=== PATIENT | female | born 1945 | race Caucasian/White ===

== ENCOUNTER → 2016-05-24 | Outpatient (CLI) | payer MEDICARE ==
[2016-05-24 11:59] LABS: Appearance,Urine Clear (Clear); Bacteria,Urine Rare /hpf; Bilirubin,Urine Negative (Negative); Glucose,Urine (UA) Negative (Negative); Ketones,Urine Negative (Negative); Leukocyte Esterase,Urine Small (Negative); Nitrite,Urine Negative (Negative); Particle Count 2045; Protein,Urine Negative (Negative); RBC,Urine 1 /hpf (0-5); Specific Gravity,Urine 1.013 (1.001-1.035); Squamous Epithelial Cell,Urine 2 /hpf (0-4); UA Billing (MACRO vs. MICRO) MICRO; Urobilinogen,Urine <2.0 mg/dL (<2.0); WBC,Urine 3 /hpf (0-5)
[2016-05-24 12:15] LABS: ALT 27 U/L (9-52); AST 19 U/L (14-36); Alkaline Phosphatase 135 U/L (38-126); Anion Gap 8 mmol/L; Blood Urea Nitrogen 21 mg/dL (7-17); Calcium 9.5 mg/dL (8.4-10.2); Carbon Dioxide 29 mmol/L (22-30); Chloride 104 mmol/L (98-107); Glucose 184 mg/dL (74-99); Iron 81 ug/dL (37-170); Non-African American GFR(MDRD) 55 (>60 ml/min/1.73 sqM); Phosphorous 3.6 mg/dL (2.5-4.5); Sodium 141 mmol/L (137-145); Total Bilirubin 0.9 mg/dL (0.2-1.3); Total Protein 6.9 g/dL (6.3-8.2); Uric Acid 6.3 mg/dL (3.7-7.4)
[2016-05-24 12:24] LABS: Total Iron Binding Capacity 279 ug/dL (265-497)
[2016-05-24 12:29] LABS: Basophils # (A) 0.1 k/uL (0-0.2); Basophils % (A) 1 %; CH 29.7; CHCM 32.3; Eosinophils # (A) 0.1 k/uL (0-0.7); Eosinophils % (A) 1 %; HCT 44.6 % (34.0-46.0); HGB 14.5 gm/dL (11.4-16.0); Luc # (Auto) 0.14; Luc % (Auto) 2; Lymphocytes # (A) 1.1 k/uL (1.0-4.8); Lymphocytes % (A) 14 %; MCH 30.1 pg (25.0-35.0); MCHC 32.5 g/dL (31.0-37.0); MCV 92.4 fL (80.0-100.0); Mean Platelet Volume 8.8; Monocytes # (A) 0.4 k/uL (0-1.0); Monocytes % (A) 4 %; Neutrophils # (A) 6.3 k/uL (1.3-7.7); Neutrophils % (A) 78 %; RBC 4.83 m/uL (3.80-5.40); RDW 13.6 % (11.5-15.5); WBC 8.1 k/uL (3.8-10.6); WBC (Perox) 8.21
[2016-05-24 13:43] LABS: Hemoglobin A1C 7.3 % (4.2-6.1)
== END | disposition home or self-care (01) ==
LOC: LABWHC1 11:27
PROVIDERS: ATTEND Nurse Practitioner Family
DX: N18.3 Chronic kidney disease, stage 3 (moderate) (principal); N25.81 Secondary hyperparathyroidism of renal origin; D64.9 Anemia, unspecified; M10.9 Gout, unspecified; N39.0 Urinary tract infection, site not specified; E11.65 Type 2 diabetes mellitus with hyperglycemia
CPT/HCPCS: 36415; 80053; 81001; 82306; 82728; 83036; 83540; 83550; 83735; 83970; 84100; 84550; 85025

== ENCOUNTER → 2016-09-15 | Outpatient (CLI) | payer MEDICARE ==
[2016-09-15 13:26] LABS: Calcium 9.3 mg/dL (8.4-10.2); Potassium 4.7 mmol/L (3.5-5.1)
== END | disposition home or self-care (01) ==
LOC: LABWHC1 12:35
PROVIDERS: ATTEND Nurse Practitioner Family
DX: N18.3 Chronic kidney disease, stage 3 (moderate) (principal); E78.00 Pure hypercholesterolemia, unspecified
CPT/HCPCS: 36415; 80048; 80061

== ENCOUNTER → 2016-11-03 | Outpatient (CLI) | payer MEDICARE ==
[2016-11-03 12:00] LABS: Basophils # (A) 0.1 k/uL (0-0.2); Basophils % (A) 1 %; CH 30.9; CHCM 32.7; Eosinophils # (A) 0.1 k/uL (0-0.7); Eosinophils % (A) 2 %; HCT 47.7 % (34.0-46.0); HGB 15.1 gm/dL (11.4-16.0); Luc # (Auto) 0.13; Luc % (Auto) 2; Lymphocytes # (A) 1.5 k/uL (1.0-4.8); Lymphocytes % (A) 21 %; MCH 30.2 pg (25.0-35.0); MCHC 31.7 g/dL (31.0-37.0); MCV 95.2 fL (80.0-100.0); Mean Platelet Volume 9.1; Monocytes # (A) 0.4 k/uL (0-1.0); Monocytes % (A) 6 %; Neutrophils # (A) 4.7 k/uL (1.3-7.7); Neutrophils % (A) 68 %; RBC 5.01 m/uL (3.80-5.40); RDW 14.4 % (11.5-15.5); WBC 6.9 k/uL (3.8-10.6); WBC (Perox) 6.58
[2016-11-03 12:14] LABS: Calcium 9.6 mg/dL (8.4-10.2); Phosphorous 3.7 mg/dL (2.5-4.5); Potassium 5.1 mmol/L (3.5-5.1); Total Bilirubin 0.7 mg/dL (0.2-1.3); Total Protein 6.7 g/dL (6.3-8.2); Uric Acid 6.7 mg/dL (3.7-7.4)
[2016-11-03 12:23] LABS: Appearance,Urine Cloudy (Clear); Bilirubin,Urine Negative (Negative); Glucose,Urine (UA) Negative (Negative); Ketones,Urine Negative (Negative); Leukocyte Esterase,Urine Trace (Negative); Mucus,Urine Rare /hpf; Nitrite,Urine Negative (Negative); Particle Count 3802; Protein,Urine Negative (Negative); RBC,Urine <1 /hpf (0-5); Specific Gravity,Urine 1.018 (1.001-1.035); Squamous Epithelial Cell,Urine 7 /hpf (0-4); UA Billing (MACRO vs. MICRO) MICRO; Urobilinogen,Urine <2.0 mg/dL (<2.0); WBC,Urine 3 /hpf (0-5)
[2016-11-03 15:30] LABS: Iron Saturation 31.94 (12.00-45.00)
[2016-11-03 21:07] LABS: Hemoglobin A1C 7.1 % (4.2-6.1)
== END | disposition home or self-care (01) ==
LOC: LABWHC1 11:10
PROVIDERS: ATTEND Nurse Practitioner Family
DX: D64.9 Anemia, unspecified (principal); E55.9 Vitamin D deficiency, unspecified; M10.9 Gout, unspecified; N39.0 Urinary tract infection, site not specified; N25.81 Secondary hyperparathyroidism of renal origin; E11.65 Type 2 diabetes mellitus with hyperglycemia; I12.9 Hypertensive chronic kidney disease with stage 1 through stage 4 chronic kidney disease, or unspecified chronic kidney disease; E11.22 Type 2 diabetes mellitus with diabetic chronic kidney disease; N18.3 Chronic kidney disease, stage 3 (moderate); Z79.4 Long term (current) use of insulin
CPT/HCPCS: 36415; 80053; 80061; 81001; 82306; 82728; 83036; 83540; 83550; 83735; 83970; 84100; 84550; 85025

== ENCOUNTER → 2016-12-27 | Outpatient (CLI) | payer MEDICARE ==
--- NOTE | 2016-12-27 14:03 | US ---
EXAMINATION TYPE: US kidneys/renal and bladder DATE OF EXAM: 12/27/2016 COMPARISON: CT chest abdomen and pelvis December 25, 2014 CLINICAL HISTORY: N18.3 Chronic kidney disease stage 3. Abnormal labs EXAM MEASUREMENTS: Right Kidney: 9.3 x 3.7 x 4.6 cm Left Kidney: 9.4 x 5.4 x 4.8 cm Right Kidney: wnl Left Kidney: Cyst lateral as seen on previous= 3.0 x 2.7 x 2.9 cm Bladder: wnl Bilateral Jets seen: Yes There is no evidence for hydronephrosis at this point in time. No nephrolithiasis is seen. No new s uspicious solid or cystic masses are identified. There is redemonstration of 3.0 cm simple appearing cyst laterally left kidney felt stable. The urinary bladder is not greatly distended but anechoic. Bilateral ureteral jets are seen. Exam is slightly suboptimal secondary to patient's large body habitus. IMPRESSION: No hydronephrosis is evident bilaterally.
== END | disposition home or self-care (01) ==
LOC: RADUSWWP 12:24
PROVIDERS: ATTEND Internal Medicine Nephrology
DX: N18.3 Chronic kidney disease, stage 3 (moderate) (principal)
CPT/HCPCS: 76770

== ENCOUNTER → 2017-01-10 | Outpatient (CLI) | payer MEDICARE ==
[2017-01-10 12:11] LABS: Appearance,Urine Clear (Clear); Bilirubin,Urine Negative (Negative); Glucose,Urine (UA) Negative (Negative); Ketones,Urine Negative (Negative); Leukocyte Esterase,Urine Negative (Negative); Nitrite,Urine Negative (Negative); PH, Urine 6.5 (5.0-8.0); Protein,Urine Negative (Negative); Specific Gravity,Urine 1.017 (1.001-1.035); UA Billing (MACRO vs. MICRO) CHEM; Urobilinogen,Urine <2.0 mg/dL (<2.0)
[2017-01-10 12:15] LABS: Basophils # (A) 0.1 k/uL (0-0.2); Basophils % (A) 1 %; CH 30.5; CHCM 33.1; Eosinophils # (A) 0.1 k/uL (0-0.7); Eosinophils % (A) 1 %; HCT 46.9 % (34.0-46.0); HDW 2.33; HGB 14.9 gm/dL (11.4-16.0); Luc # (Auto) 0.16; Luc % (Auto) 2; Lymphocytes # (A) 1.5 k/uL (1.0-4.8); Lymphocytes % (A) 18 %; MCH 29.5 pg (25.0-35.0); MCHC 31.9 g/dL (31.0-37.0); MCV 92.5 fL (80.0-100.0); Mean Platelet Volume 8.8; Monocytes # (A) 0.4 k/uL (0-1.0); Monocytes % (A) 4 %; Neutrophils # (A) 6.2 k/uL (1.3-7.7); Neutrophils % (A) 74 %; RBC 5.07 m/uL (3.80-5.40); WBC 8.4 k/uL (3.8-10.6); WBC (Perox) 8.49
[2017-01-10 12:22] LABS: Partial Thromboplastin Time 24.2 sec (22.0-30.0); Prothrombin Time 10.3 sec (9.0-12.0)
[2017-01-10 14:43] LABS: Anion Gap 10 mmol/L; Blood Urea Nitrogen 19 mg/dL (7-17); Calcium 9.9 mg/dL (8.4-10.2); Carbon Dioxide 26 mmol/L (22-30); Chloride 104 mmol/L (98-107); Glucose 181 mg/dL (74-99); Non-African American GFR(MDRD) 57 (>60 ml/min/1.73 sqM); Potassium 4.4 mmol/L (3.5-5.1); Sodium 140 mmol/L (137-145)
== END | disposition home or self-care (01) ==
LOC: LABPAT 11:08
PROVIDERS: ATTEND Nurse Practitioner Family
DX: Z01.812 Encounter for preprocedural laboratory examination (principal); I10 Essential (primary) hypertension; Z79.02 Long term (current) use of antithrombotics/antiplatelets
CPT/HCPCS: 36415; 80048; 81003; 85025; 85610; 85730

== ENCOUNTER → 2017-02-22 | Outpatient (CLI) | payer MEDICARE ==
[2017-02-22 12:46] LABS: ALT 27 U/L (9-52); AST 18 U/L (14-36); Albumin 3.5 g/dL (3.5-5.0); Alkaline Phosphatase 123 U/L (38-126); Anion Gap 8 mmol/L; Blood Urea Nitrogen 19 mg/dL (7-17); Calcium 9.6 mg/dL (8.4-10.2); Carbon Dioxide 31 mmol/L (22-30); Chloride 103 mmol/L (98-107); Glucose 195 mg/dL (74-99); Potassium 4.7 mmol/L (3.5-5.1); Sodium 142 mmol/L (137-145); Total Bilirubin 0.8 mg/dL (0.2-1.3); Total Protein 6.3 g/dL (6.3-8.2)
== END | disposition home or self-care (01) ==
LOC: LABWHC1 11:37
PROVIDERS: ATTEND Nurse Practitioner Family
DX: E11.22 Type 2 diabetes mellitus with diabetic chronic kidney disease (principal)
CPT/HCPCS: 36415; 80053; 83036

== ENCOUNTER → 2017-06-01 | Outpatient (CLI) | payer MEDICARE ==
[2017-06-01 12:18] LABS: Appearance,Urine Clear (Clear); Basophils # (A) 0.1 k/uL (0-0.2); Basophils % (A) 1 %; Bilirubin,Urine Negative (Negative); Blood,Urine Negative (Negative); Color,Urine Yellow; Eosinophils # (A) 0.2 k/uL (0-0.7); Eosinophils % (A) 2 %; Glucose,Urine (UA) Negative (Negative); HGB 14.9 gm/dL (11.4-16.0); Ketones,Urine Negative (Negative); Leukocyte Esterase,Urine Negative (Negative); Lymphocytes # (A) 1.7 k/uL (1.0-4.8); Lymphocytes % (A) 17 %; MCH 29.1 pg (25.0-35.0); MCHC 33.1 g/dL (31.0-37.0); MCV 88.1 fL (80.0-100.0); Mean Platelet Volume 8.4; Monocytes # (A) 0.4 k/uL (0-1.0); Monocytes % (A) 4 %; Neutrophils # (A) 7.5 k/uL (1.3-7.7); Neutrophils % (A) 75 %; Nitrite,Urine Negative (Negative); PH, Urine 5.5 (5.0-8.0); Platelet Count 202 k/uL (150-450); Protein,Urine Negative (Negative); RBC 5.11 m/uL (3.80-5.40); RDW 13.8 % (11.5-15.5); Specific Gravity,Urine 1.018 (1.001-1.035); Urobilinogen,Urine <2.0 mg/dL (<2.0); WBC 10.1 k/uL (3.8-10.6)
[2017-06-01 12:39] LABS: Albumin 3.9 g/dL (3.5-5.0); Calcium 9.7 mg/dL (8.4-10.2); Magnesium 2.1 mg/dL (1.6-2.3); Phosphorus 4.2 mg/dL (2.5-4.5); Potassium 5.2 mmol/L (3.5-5.1); Total Bilirubin 0.7 mg/dL (0.2-1.3); Total Protein 6.8 g/dL (6.3-8.2); Uric Acid 6.4 mg/dL (3.7-7.4)
[2017-06-01 16:28] LABS: Iron Saturation 21.64 (12.00-45.00)
[2017-06-01 16:37] LABS: Vitamin D 25 Hydroxy 20.4 ng/mL (30.0-100.0)
[2017-06-01 17:19] LABS: Hemoglobin A1C 7.5 % (4.0-6.0)
== END | disposition home or self-care (01) ==
LOC: LABWHC1 11:15
PROVIDERS: ATTEND Nurse Practitioner Family
DX: N18.3 Chronic kidney disease, stage 3 (moderate) (principal); D64.9 Anemia, unspecified; N25.81 Secondary hyperparathyroidism of renal origin; E83.39 Other disorders of phosphorus metabolism; M10.9 Gout, unspecified; R80.9 Proteinuria, unspecified; E11.65 Type 2 diabetes mellitus with hyperglycemia
CPT/HCPCS: 36415; 80053; 81003; 82043; 82306; 82570; 82728; 83036; 83540; 83550; 83735; 83970; 84100; 84550; 85025

== ENCOUNTER → 2017-09-21 | Outpatient (CLI) | payer MEDICARE ==
[2017-09-21 11:59] LABS: Albumin 3.8 g/dL (3.5-5.0); Calcium 9.3 mg/dL (8.4-10.2); Potassium 4.8 mmol/L (3.5-5.1); Total Bilirubin 0.8 mg/dL (0.2-1.3); Total Protein 6.5 g/dL (6.3-8.2)
[2017-09-21 20:30] LABS: Hemoglobin A1C 6.9 % (4.0-6.0)
== END | disposition home or self-care (01) ==
LOC: LABWHC1 11:19
PROVIDERS: ATTEND Nurse Practitioner Family
DX: E11.65 Type 2 diabetes mellitus with hyperglycemia (principal); Z79.4 Long term (current) use of insulin
CPT/HCPCS: 36415; 80053; 83036

== ENCOUNTER → 2018-06-10 | Outpatient (CLI) | payer MEDICARE ==
[2018-06-10 16:39] LABS: Albumin 3.9 g/dL (3.80-4.90); Albumin/Globulin Ratio 1.86 (1.60-3.17); Anion Gap 8.4 mmol/L (4.00-12.00); Calcium 9.4 mg/dL (8.7-10.3); Carbon Dioxide 27.6 mmol/L (21.6-31.8); Globulin 2.1 g/dL (1.6-3.3); Potassium 5.2 mmol/L (3.5-5.5); Total Bilirubin 0.5 mg/dL (0.2-1.2)
[2018-06-10 18:44] LABS: Hemoglobin A1C 7.1 % (4.0-6.0)
== END ==
LOC: LABWHC1 10:07
PROVIDERS: ATTEND Nurse Practitioner Family
DX: E11.22 Type 2 diabetes mellitus with diabetic chronic kidney disease (principal)
CPT/HCPCS: 36415; 80053; 82043; 82570; 83036

== ENCOUNTER → 2018-06-18 | Outpatient (CLI) | payer MEDICARE ==
--- NOTE | 2018-06-19 10:12 | MM ---
Reason for exam: screening (asymptomatic). Last mammogram was performed 5 years and 6 months ago. History: Patient is postmenopausal and history of other cancer. Physical Findings: A clinical breast exam by your physician is recommended on an annual basis and results should be correlated with mammographic findings. MG 3D Screening Mammo W/Cad Bilateral CC and MLO view(s) were taken. Prior study comparison: December 18, 2012, bilateral digital screening mammo w/CAD. May 23, 2000, left breast special view mammogram. The breast tissue is heterogeneously dense. This may lower the sensitivity of mammography. Focal asymmetry upper outer left breast middle third position. ASSESSMENT: Incomplete: need additional imaging evaluation, BI-RAD 0 RECOMMENDATION: Special view mammogram of the left breast. If lesion persists on supplemental views, image directed ultrasound is recommended. [facility] will attempt to contact patient to return for supplemental views and ultrasound if indicated.
== END | disposition home or self-care (01) ==
LOC: RADMAMWWP 10:33
PROVIDERS: ATTEND Family Medicine
DX: Z12.31 Encounter for screening mammogram for malignant neoplasm of breast (principal)
CPT/HCPCS: 77063; 77067

== ENCOUNTER 2018-06-20 08:42 | Observation (INO) | payer MEDICARE ==
[2018-06-20] MEDS ORDERED: NITROGLYCERIN SL TABS 0.4 MG TAB SUBLINGUAL STA (09:03)
--- NOTE | 2018-06-20 09:14 | ED ---
Chest Pain HPI - General Source: patient, RN notes reviewed Mode of arrival: ambulatory Limitations: no limitations <Trev Forde - Last Filed: 06/20/18 11:13> <Wade Mclaughlin - Last Filed: 06/20/18 11:16> - General Chief Complaint: Chest Pain Stated Complaint: Chest pain, nausea Time Seen by Provider: 06/20/18 08:54 - History of Present Illness Initial Comments: 73-year-old female presents emergency Department with chief complaint of chest pain. Patient states started around 10:00 last night. Patient states persistent centralized chest pain, chest pressure. She has no associated shortness of breath but does admit to nausea. Patient had prior ID approximately 2009. Patient has 5 stents. Patient director hedis is Dr. Salazar. Patient has a history of hyperlipidemia, hypertension, . Patient is a nonsmoker no formal history of smoking. He shouldn't denies fevers or chills no cough or cold-like symptoms. Patient took 4 aspirin around 2 AM. (Trev Forde) - Related Data Home Medications Medication Instructions Recorded Confirmed Aspirin EC [Ecotrin Low Dose] 81 mg PO DAILY 06/20/18 06/20/18 Clopidogrel Bisulfate [Plavix] 75 mg PO DAILY 06/20/18 06/20/18 Enalapril [Vasotec] 20 mg PO BID 06/20/18 06/20/18 Insuln Asp Prt/Insulin Aspart 55 units SQ BID 06/20/18 06/20/18 [NovoLOG MIX 70-30 VIAL] Metoprolol Succinate (ER) [Toprol 25 mg PO DAILY 06/20/18 06/20/18 Xl] Pravastatin Sodium [Pravachol] 40 mg PO HS 06/20/18 06/20/18 amLODIPine BESYLATE [Norvasc] 10 mg PO HS 06/20/18 06/20/18 Allergies Allergy/AdvReac Type Severity Reaction Status Date / Time Penicillins Allergy Rash/Hives Verified 06/20/18 09:28 Review of Systems ROS Other: All systems not noted in ROS Statement are negative. <Trev Forde - Last Filed: 06/20/18 11:13> ROS Other: All systems not noted in ROS Statement are negative. <Wade Mclaughlin - Last Filed: 06/20/18 11:16> ROS Statement: Those systems with pertinent positive or pertinent negative responses have been documented in the HPI. Past Medical History Past Medical History: Cancer, Dementia, Hyperlipidemia, Hypertension, Myocardial Infarction (ID) History of Any Multi-Drug Resistant Organisms: None Reported Past Surgical History: Cholecystectomy, Hysterectomy Past Psychological History: No Psychological Hx Reported Smoking Status: Never smoker Past Alcohol Use History: None Reported Past Drug Use History: None Reported <EulaTrev - Last Filed: 06/20/18 11:13> General Exam Limitations: no limitations General appearance: alert, in no apparent distress Head exam: Present: atraumatic, normocephalic, normal inspection Neck exam: Present: normal inspection. Absent: tenderness, meningismus, lymphadenopathy Respiratory exam: Present: normal lung sounds bilaterally. Absent: respiratory distress, wheezes, rales, rhonchi, stridor Cardiovascular Exam: Present: normal rhythm, tachycardia, normal heart sounds. Absent: systolic murmur, diastolic murmur, rubs, gallop, clicks GI/Abdominal exam: Present: soft, normal bowel sounds. Absent: distended, tenderness, guarding, rebound, rigid <Trev Forde - Last Filed: 06/20/18 11:13> Course <Wade Mclaughlin - Last Filed: 06/20/18 11:16> Vital Signs 06/20/18 06/20/18 06/20/18 08:49 09:15 09:30 Temperature 97.7 F Pulse Rate 105 H 91 Respiratory 20 18 18 Rate Blood Pressure 193/93 184/114 152/71 O2 Sat by Pulse 97 Oximetry 06/20/18 06/20/18 09:45 10:00 Temperature Pulse Rate 84 75 Respiratory 18 18 Rate Blood Pressure 120/71 112/72 O2 Sat by Pulse Oximetry - Reevaluation(s) Reevaluation #1: 06/20/18 11:16 PA supervision: I proceeded [id number] evaluation the patient did discuss [employer] her. Patient will be admitted with cardiology consultation. She presents with complaints of chest pain she does have a history of cardiac disease. I did discuss the case with Dr. Moffett. I do agree with the assessment and plan. (Wade Mclaughlin) Chest Pain [facility] <EulaTrev Kika - Last Filed: 06/20/18 11:13> - MDM 73-year-old female presented for chest pain. EKG, laboratory unremarkable. Patient will be admitted for cardiac rule out. (Trev Forde) Disposition Time of Disposition: 11:14 <Trev Forde - Last Filed: 06/20/18 11:13> <Wade Mclaughlin - Last Filed: 06/20/18 11:16> Clinical Impression: Chest pain Disposition: ADMITTED IP TO THIS HOSP Condition: Fair Referrals: Swapnil Miller MD [Primary Care Provider] - 1-2 days
--- NOTE | 2018-06-20 09:40 | XR ---
EXAMINATION TYPE: XR chest 2V DATE OF EXAM: 06/20/2018 COMPARISON: 11/14/2013 TECHNIQUE: PA and lateral views submitted. HISTORY: Chest pain FINDINGS: The lungs are clear and there is no pneumothorax, pleural effusion, or focal pneumonia. Heart is en larged. Atherosclerotic change aorta. Arthropathy of the AC joints. Surgical clips in the abdomen. Hy pertrophic and degenerative change of the spine. Could not exclude a previous coronary stent. IMPRESSION: 1. No acute process.
[2018-06-20 09:51] LABS: Basophils # (A) 0.1 k/uL (0-0.2); Basophils % (A) 1 %; Eosinophils # (A) 0.1 k/uL (0-0.7); Eosinophils % (A) 1 %; HCT 43.1 % (34.0-46.0); Lymphocytes # (A) 1.2 k/uL (1.0-4.8); Lymphocytes % (A) 14 %; MCH 29.8 pg (25.0-35.0); MCHC 32.5 g/dL (31.0-37.0); MCV 91.7 fL (80.0-100.0); Mean Platelet Volume 8.7; Monocytes # (A) 0.4 k/uL (0-1.0); Monocytes % (A) 5 %; Neutrophils # (A) 6.6 k/uL (1.3-7.7); Neutrophils % (A) 77 %; Platelet Count 172 k/uL (150-450); RDW 13.8 % (11.5-15.5); WBC 8.6 k/uL (3.8-10.6)
[2018-06-20 10:00] LABS: INR 0.9 (<1.2); Partial Thromboplastin Time 25.2 sec (22.0-30.0); Prothrombin Time 9.8 sec (9.0-12.0)
[2018-06-20 10:03] LABS: Albumin 3.7 g/dL (3.5-5.0); Calcium 9.3 mg/dL (8.4-10.2); Magnesium 2.1 mg/dL (1.6-2.3); Total Bilirubin 0.7 mg/dL (0.2-1.3); Total Protein 6.7 g/dL (6.3-8.2)
[2018-06-20] MEDS ORDERED: HEPARIN SODIUM,PORCINE 5,000 UNIT/ML 1 ML VIAL IV ONE (11:08)
[2018-06-20] MEDS ORDERED: NITROGLYCERIN SL TABS 0.4 MG TAB SUBLINGUAL PRN (11:08)
[2018-06-20] MEDS: HEPARIN SOD,PORK IN 0.45% NACL 25,000 UNIT in 0.45% NACL 1 250ML.BAG IV SCH (11:32)
[2018-06-20 16:35] LABS: Glucose,Whole Blood 89 mg/dL (75-99)
[2018-06-20 19:57] LABS: Glucose,Whole Blood 188 mg/dL (75-99)
[2018-06-20] MEDS ORDERED: PRAVASTATIN SODIUM 40 MG TAB PO SCH (22:15)
[2018-06-20] MEDS: amLODIPine 10 MG TAB PO SCH (22:28)
[2018-06-20] MEDS: LISINOPRIL 20 MG TAB PO SCH (22:28)
[2018-06-20] MEDS: INSULIN DETEMIR (LEVEMIR) 100 UNIT/ML SYR SQ SCH (22:29)
[2018-06-21] MEDS ORDERED: HEPARIN SODIUM,PORCINE 5,000 UNIT/ML 1 ML VIAL IV PRN (01:23)
[2018-06-21] MEDS: HEPARIN SOD,PORK IN 0.45% NACL 25,000 UNIT in 0.45% NACL 1 250ML.BAG IV SCH (03:39)
--- NOTE | 2018-06-21 05:29 | HP ---
HISTORY AND PHYSICAL DATE OF ADMISSION: 06/20/2018 DATE OF SERVICE: 06/20/2018 PRESENTING COMPLAINT: Chest pain. HISTORY OF PRESENTING COMPLAINT: This is a very pleasant 73-year-old patient who follows with Dr. Miller. Her dialysis equipment technician is Dr. Parvez Krause. Chronic stable medical conditions include hyperlipidemia, hypertension, diabetes type 2. The patient has a known history of coronary artery disease with 5 stents. The last stress test was about 18 months ago. The patient yesterday evening around 7:00 developed pressure going across the chest present for quite some time. There was no radiation, no shortness of breath, no dizziness or lightheadedness. No perspiration. The patient decided to come in, was admitted with diagnosis of unstable angina. The patient has chronic lower extremity edema, also with varicose veins. Denies any obvious orthopnea. No fever. No chills. No cough. The patient's son and [id number] are present at the bedside. REVIEW OF SYSTEMS: CONSTITUTIONAL: None. HEENT: None. RESPIRATORY: None. CARDIOVASCULAR: As above. GASTROINTESTINAL: None. GENITOURINARY: Urinary incontinence. MUSCULOSKELETAL: None. DERMATOLOGICAL: Chronic skin changes in the lower extremity. HEMATOLOGICAL: None. LYMPHATICS: None. PSYCHIATRY: None. NEUROLOGICAL: None. PAST MEDICAL HISTORY: Coronary artery disease with stent, hyperlipidemia, hypertension, diabetes type 2, uterine cancer, hysterectomy, varicose veins. PAST SURGICAL HISTORY: Cholecystectomy, cardiac cath with stent total of 5, colonoscopy, right total knee replacement. SOCIAL HISTORY: . Does use a cane occasionally. No smoking. No alcohol. FAMILY HISTORY: Father had a stroke. HOME MEDICATIONS: 1. Aspirin 81 mg a day. 2. Norvasc 10 mg at bedtime. 3. Pravachol 40 mg at bedtime. 4. Toprol-XL 25 mg a day. 5. Vasotec 20 mg b.i.d. 6. Plavix 75 mg a day. 7. NovoLog Mix 70/30, 55 units subcu b.i.d. ALLERGIES: Allergy to PENICILLIN. PHYSICAL EXAMINATION: On examination, temperature 97.7, pulse 105, respiration 20, blood pressure 193/93, repeat blood pressure 169/83. GENERAL APPEARANCE: Well built, BMI 54.9. Lying in bed, not in distress. EYES: Pupils equal. Conjunctivae normal. HENT: External appearance of nose and ears normal. Oral cavity normal. NECK: Short thick, JVD unable to assess. Mass not palpable. RESPIRATORY: Effort increased. LUNGS: Distant breath sounds. CARDIOVASCULAR: Heart sounds muffled. Edema present. ABDOMEN: Distended, soft. Liver and spleen not palpable. LYMPHATIC: No lymph nodes palpable in the neck or axilla. PSYCHIATRY: Alert and oriented x3. Mood and affect normal. EXTREMITIES: Lower extremities edema is present with some discoloration of the right lower extremity above the ankle. INVESTIGATIONS: White count 8.6, hemoglobin 14.0, potassium 5.0, BUN 23, creatinine 0.97. Troponin x2 were negative. EKG tracing personally reviewed by me shows normal sinus rhythm, poor R- wave progression. Chest x-ray film personally reviewed by me shows borderline venous prominence. Patient's proBNP is 167. ASSESSMENT: 1. Unstable angina in a patient with known coronary artery disease with prior stents. 2. Morbid obesity, body mass index 54.9. 3. Hyperlipidemia. 4. Essential hypertension. 5. Diabetes mellitus type 2, chronically on insulin. 6. Bilateral lower extremity venous insufficiency with history of varicose veins. Also note that patient is on amlodipine. PLAN: Home medications are resumed. Serial cardiac enzymes in place. The patient will need at least a stress test. Will give Levemir 30 units tonight with sliding scale and hold off the NovoLog Mix 70/30 for right now. I will keep the patient n.p.o. after midnight in case Cardiology decides to proceed with cardiac catheterization. Care was discussed with the patient and family at the bedside. Questions were answered. MMODL / IJN: [id number] /
[2018-06-21] MEDS: INSULIN ASPART (NovoLOG) 100 UNIT/ML VIAL SQ SCH ×4 (08:21→22:53)
[2018-06-21 08:22] LABS: Glucose,Whole Blood 162 mg/dL (75-99)
[2018-06-21] MEDS: CLOPIDOGREL 75 MG TAB PO SCH (08:24)
[2018-06-21] MEDS: LISINOPRIL 20 MG TAB PO SCH ×2 (08:24→20:51)
[2018-06-21] MEDS: NITROGLYCERIN OINT 1 INCH/GM PACKET TOPICAL SCH ×2 (08:24→15:50)
[2018-06-21] MEDS ORDERED: ALPRAZolam 0.5 MG TAB PO PRN (08:49)
[2018-06-21] MEDS ORDERED: SODIUM CHLORIDE 0.9% 1,000 ML in EMPTY BAG 1 BAG IV ONE (08:49)
[2018-06-21] MEDS ORDERED: ALPRAZolam 0.25 MG TAB PO PRN (08:49)
[2018-06-21 08:52] LABS: Mean Platelet Volume 8.8; Platelet Count 178 k/uL (150-450)
[2018-06-21] MEDS: METOPROLOL SUCCINATE (ER) 25 MG TAB.ER.24H PO SCH (08:57)
[2018-06-21] MEDS ORDERED: ASPIRIN 325 MG TAB PO SCH (09:00)
[2018-06-21] MEDS ORDERED: NON-FORMULARY DRUG (Aspirin Ec 81 MG) PO SCH (09:00)
--- NOTE | 2018-06-21 10:05 | P.CRDCN ---
History of Present Illness History of present illness: This is a pleasant 73-year-old female past medical history significant for coronary artery disease, hypertension, dyslipidemia, diabetes mellitus and morbid obesity. She follows in the office with Dr. Krause. We have been asked to see her in consultation secondary to chest discomfort. She states Sunday evening while sitting down she started feeling a pressure sensation in the midsternal region associated with nausea. There is no radiation to the arm, back, neck or jaw. She denies associated vomiting, shortness of breath, palpitations or diaphoresis. Her symptoms were consistent and constant since Sunday with no specific aggravating or alleviating factors. She states this feels just like coronary event she has had in the past. Although she does state this seems to be less intense but similar symptoms. She was given 17 nitroglycerin upon arrival to the emergency department that she states did improve her symptoms however they came back approximately 20 minutes later. At the time of my exam she continues to complain of a heavy sensation in the midsternal region and ongoing mild nausea. EKG reveals sinus mechanism, left axis deviation, minimal ST depression inferior laterally and poor R-wave progression. No acute ST or T wave abnormalities noted. Chest x-ray is negative for an acute cardiopulmonary process. Laboratory data reviewed, cardiac enzymes negative 3, WBC 8.6, hemoglobin 14, platelets 178, sodium 141, potassium 5.0, creatinine 0.97, magnesium 2.1 and and tape proBNP 167. Most recent cardiac catheterization from 2010 revealed in-stent restenosis of the mid RCA, patent stent in the proximal LAD, left main artery free of significant disease and circumflex artery free of significant disease. At that time she underwent successful stent placement to the mid RCA. Most recent stress test performed in the office in 2017 with a Lexiscan stress test is negative for reversible ischemia with evidence of a fixed defect in the carol-apical distribution. At the time of my exam: CONSTITUTIONAL: Denies fever. Denies chills. EYES: Denies blurred vision. Denies vision changes. Denies eye pain. EARS, NOSE, MOUTH & THROAT: Denies headache. Denies sore throat. Denies ear pain. CARDIOVASCULAR: Complains of chest pain. Denies shortness of breath. Denies orthopnea. Denies PND. Denies palpitations. RESPIRATORY: Denies cough. GASTROINTESTINAL: Denies abdominal pain. Denies diarrhea. Denies constipation. Complains of nausea. Denies vomiting. MUSCULOSKELETAL: Denies myalgias. INTEGUMENTARY: Denies pruitis. Denies rash. NEUROLOGIC: Denies numbness. Denies tingling. Denies weakness. PSYCHIATRIC: Denies anxiety. Denies depression. ENDOCRINE: Denies fatigue. Denies weight change. Denies polydipsia. Denies polyurina. GENITOURINARY: Denies burning, hematuria or urgency with micturation. HEMATOLOGIC: Denies history of anemia. Denies bleeding. Blood pressure 150/67 heart rate 84 afebrile maintaining oxygen saturation on room air GENERAL: This is a 73-year-old female in no apparent distress at the time of my examination. HEENT: Head is atraumatic, normocephalic. Pupils are equal, round. Sclerae anicteric. Conjunctivae are clear. Mucous membranes of the mouth are moist. Neck is supple. There is no jugular venous distention. No carotid bruit is heard. LUNGS: Clear to auscultation no wheezes, rales or rhonchi. No chest wall tenderness is noted on palpation or with deep breathing. HEART: Regular rate and rhythm without murmurs, rubs or gallops. S1 and S2 heard. ABDOMEN: Soft, nontender. Bowel sounds are heard. No organomegaly noted. EXTREMITIES: No evidence of peripheral edema and no calf tenderness noted. VASCULAR: Radial and dorsalis pedis pulses palpated, no evidence of clubbing. NEUROLOGIC: Patient is awake, alert and oriented x3. ASSESSMENT Unstable angina History of coronary artery disease status post multiple stent placements with history of in-stent restenosis 2010 Hypertension Dyslipidemia Diabetes mellitus Morbid obesity, BMI 54 PLAN An acute coronary event has been ruled out. With ongoing symptoms of chest discomfort recommend proceeding with cardiac catheterization. I have discussed the risks, benefits and alternative therapies for the above-mentioned procedure and for both sedation/analgesia as well as necessary blood product administration, if indicated, as they pertain to this patient. The patient has indicated understanding and acceptance of the risks and procedures discussed. Further recommendations to follow based upon clinical course. Thank you kindly for this consultation. Nurse Practitioner note has been reviewed, I agree with a documented findings and plan of care. Patient was seen and examined. Past Medical History Past Medical History: Coronary Artery Disease (CAD), Cancer, Chest Pain / Angina, Dementia, Hyperlipidemia, Hypertension, Myocardial Infarction (OR) Additional Past Medical History / Comment(s): IDDM type II, uterine cancer with hysterectomy, MIs x 3 per pt Last Myocardial Infarction Date:: 2010 History of Any Multi-Drug Resistant Organisms: None Reported Past Surgical History: Cholecystectomy, Heart Catheterization With Stent, Hysterectomy, Joint Replacement Additional Past Surgical History / Comment(s): PCIs with stents-total of 5 per pt, colonoscopy, D&C x2, R total knee replacement. Past Anesthesia/Blood Transfusion Reactions: No Reported Reaction Date of Last Stent Placement:: 2010 Smoking Status: Never smoker - Past Family History Father Family Medical History: CVA/TIA Additional Family Medical History / Comment(s): Father had a CVA at the age of 92 yrs. He lived to be 95yrs old. Mother Family Medical History: No Reported History Additional Family Medical History / Comment(s): Mother was healthy and lived to be 94 yrs old. Medications and Allergies Home Medications Medication Instructions Recorded Confirmed Type Aspirin EC [Ecotrin Low Dose] 81 mg PO DAILY 06/20/18 06/20/18 History Clopidogrel Bisulfate [Plavix] 75 mg PO DAILY 06/20/18 06/20/18 History Enalapril [Vasotec] 20 mg PO BID 06/20/18 06/20/18 History Insuln Asp Prt/Insulin Aspart 55 units SQ BID 06/20/18 06/20/18 History [NovoLOG MIX 70-30 VIAL] Metoprolol Succinate (ER) [Toprol 25 mg PO DAILY 06/20/18 06/20/18 History Xl] Pravastatin Sodium [Pravachol] 40 mg PO HS 06/20/18 06/20/18 History amLODIPine BESYLATE [Norvasc] 10 mg PO HS 06/20/18 06/20/18 History Allergies Allergy/AdvReac Type Severity Reaction Status Date / Time Penicillins Allergy Rash/Hives Verified 06/20/18 09:28 Physical Exam Vitals: Vital Signs Temp Pulse Pulse Pulse Resp BP BP 06/21/18 04:52 150/67 06/21/18 03:42 98.5 F 84 16 174/82 06/21/18 03:11 14 06/21/18 00:00 14 06/20/18 23:25 97.9 F 66 14 138/75 06/20/18 20:00 15 06/20/18 19:29 98.0 F 92 15 169/83 06/20/18 15:25 173/91 06/20/18 15:00 79 97 H 133/59 06/20/18 14:30 81 19 132/62 06/20/18 14:00 80 14 150/65 06/20/18 13:45 78 18 136/68 06/20/18 13:30 80 18 135/59 06/20/18 13:15 77 18 134/55 06/20/18 13:00 68 21 135/60 06/20/18 12:45 75 20 150/77 06/20/18 12:30 78 20 138/61 06/20/18 12:15 138/61 06/20/18 12:00 84 17 162/72 06/20/18 11:45 80 18 146/65 06/20/18 11:30 81 18 136/60 06/20/18 11:15 80 18 129/67 06/20/18 11:00 129/67 06/20/18 10:45 70 18 140/59 06/20/18 10:30 70 20 132/61 06/20/18 10:15 74 18 127/67 06/20/18 10:00 75 18 112/72 06/20/18 09:45 84 18 120/71 06/20/18 09:30 18 152/71 06/20/18 09:15 91 18 184/114 06/20/18 08:49 97.7 F 105 H 20 193/93 Pulse Ox 06/21/18 04:52 06/21/18 03:42 96 06/21/18 03:11 06/21/18 00:00 06/20/18 23:25 99 06/20/18 20:00 06/20/18 19:29 97 06/20/18 15:25 06/20/18 15:00 96 06/20/18 14:30 06/20/18 14:00 06/20/18 13:45 97 06/20/18 13:30 97 06/20/18 13:15 06/20/18 13:00 06/20/18 12:45 94 L 06/20/18 12:30 94 L 06/20/18 12:15 06/20/18 12:00 95 06/20/18 11:45 95 06/20/18 11:30 95 06/20/18 11:15 95 06/20/18 11:00 06/20/18 10:45 95 06/20/18 10:30 95 06/20/18 10:15 94 L 06/20/18 10:00 06/20/18 09:45 06/20/18 09:30 06/20/18 09:15 06/20/18 08:49 97 Intake and Output 06/20/18 06/21/18 06/21/18 22:59 06:59 14:59 Intake Total 72.848 122.31 Balance 72.848 122.31 Intake: Intake, IV Titration 72.848 122.31 Amount Heparin Sod,Pork in 0.45% 72.848 122.31 NaCl 25,000 unit In 0.45 % NaCl 1 250ml.bag @ 7.35 UNITS/KG/HR 10.002 mls/ hr IV .Q24H [facility] Rx#: [id number] Oral 0 Other: Voiding Method Toilet Toilet # Voids 1 1 Results 06/21/18 08:20 06/20/18 09:14 Cardiac Enzymes 06/20/18 06/20/18 06/20/18 Range/Units 09:14 09:14 15:37 AST 23 (14-36) U/L Troponin I <0.012 <0.012 (0.000-0.034) ng/mL 06/20/18 Range/Units 21:06 AST (14-36) U/L Troponin I <0.012 (0.000-0.034) ng/mL Coagulation 06/20/18 06/20/18 06/21/18 Range/Units 09:14 17:49 00:48 PT 9.8 (9.0-12.0) sec APTT 25.2 32.0 H 37.4 H (22.0-30.0) sec CBC 06/20/18 Range/Units 09:14 WBC 8.6 (3.8-10.6) k/uL RBC 4.70 (3.80-5.40) m/uL Hgb 14.0 (11.4-16.0) gm/dL Hct 43.1 (34.0-46.0) % Plt Count 172 (150-450) k/uL Comprehensive Metabolic Panel 06/20/18 Range/Units 09:14 Sodium 141 (137-145) mmol/L Potassium 5.0 (3.5-5.1) mmol/L Chloride 107 (98-107) mmol/L Carbon Dioxide 28 (22-30) mmol/L BUN 23 H (7-17) mg/dL Creatinine 0.97 (0.52-1.04) mg/dL Glucose 110 H (74-99) mg/dL Calcium 9.3 (8.4-10.2) mg/dL AST 23 (14-36) U/L ALT 25 (9-52) U/L Alkaline Phosphatase 126 (38-126) U/L Total Protein 6.7 (6.3-8.2) g/dL Albumin 3.7 (3.5-5.0) g/dL Current Medications Generic Name Dose Route Start Last Admin Trade Name Freq PRN Reason Stop Dose Admin Amlodipine Besylate 10 mg 06/20/18 22:15 06/20/18 22:28 Norvasc PO 10 mg HS [facility] Administration Aspirin 325 mg 06/21/18 09:00 Aspirin PO DAILY [facility] Clopidogrel Bisulfate 75 mg 06/21/18 09:00 Plavix PO DAILY [facility] Heparin Sodium (Porcine) 0 unit 06/21/18 01:23 06/21/18 01:48 Heparin IV 4,000 unit PER PROTOCOL PRN Administration Low PTT Protocol Heparin Sodium/Sodium Chloride 250 mls @ 10.002 mls/hr 06/20/18 11:15 06/21/18 03:39 25,000 unit/ Sodium Chloride IV 12.55 units/kg/hr .Q24H ROHIT 17.078 mls/hr Administration Protocol 7.35 UNITS/KG/HR Insulin Aspart 0 unit 06/21/18 07:30 Novolog SQ ACHS [facility] Protocol Insulin Detemir 30 unit 06/20/18 22:15 06/20/18 22:29 Levemir SQ 30 unit HS [facility] Administration Lisinopril 40 mg 06/20/18 22:15 06/20/18 22:28 Zestril PO 40 mg BID [facility] Administration Metoprolol Succinate 25 mg 06/21/18 09:00 Toprol Xl PO DAILY [facility] Nitroglycerin 0.4 mg 06/20/18 11:08 Nitrostat SUBLINGUAL Q5M PRN Chest Pain Nitroglycerin 1 inch 06/21/18 08:30 Nitro-Bid Oint TOPICAL Q6HR [facility] Pravastatin Sodium 40 mg 06/20/18 22:15 06/20/18 22:28 Pravachol PO 40 mg HS [facility] Administration Intake and Output 06/20/18 06/21/18 06/21/18 22:59 06:59 14:59 Intake Total 72.848 122.31 Balance 72.848 122.31 Intake: Intake, IV Titration 72.848 122.31 Amount Heparin Sod,Pork in 0.45% 72.848 122.31 NaCl 25,000 unit In 0.45 % NaCl 1 250ml.bag @ 7.35 UNITS/KG/HR 10.002 mls/ hr IV .Q24H [facility] Rx#: [id number] Oral 0 Other: Voiding Method Toilet Toilet # Voids 1 1 06/20/18 09:14 06/20/18 09:14
[2018-06-21 10:19] LABS: Cholesterol 157 mg/dL (<200); HDL Cholesterol 55 mg/dL (40-60); LDL Cholesterol,Calculated 80 mg/dL (0-99); Triglycerides 110 mg/dL (<150)
[2018-06-21] MEDS ORDERED: LIDOCAINE 1% INJ 10MG/ML (20 ML MDV) SQ ONE (10:44)
[2018-06-21] MEDS ORDERED: fentaNYL (PF) 50 MCG/ML 2 ML AMP IVP ONE (10:45)
[2018-06-21] MEDS: MIDAZOLAM (PF) 2 MG/2 ML VIAL IVP ONE ×3 (10:45→11:18)
[2018-06-21] MEDS ORDERED: SODIUM CHLORIDE 0.9% 1,000 ML IV ONE (10:46)
[2018-06-21] MEDS ORDERED: ENALAPRILAT 1.25 MG/ML 1 ML VIAL IV ONE (10:51)
[2018-06-21] MEDS ORDERED: BIVALIRUDIN BOLUS 250 MG/50 ML IV ONE (11:18)
[2018-06-21] MEDS ORDERED: BIVALIRUDIN IV ONE (11:19)
[2018-06-21] MEDS ORDERED: SODIUM CHLORIDE 0.9% IV ONE (11:19)
--- NOTE | 2018-06-21 11:32 | CC ---
CARDIAC CATHETERIZATION REPORT INDICATION: Unstable angina. PROCEDURE NOTE: After obtaining informed consent, left heart catheterization, coronary angiogram were performed via the right femoral artery using standard Yamini catheters. The patient tolerated the procedure well without any obvious immediate complications. Patient received moderate conscious sedation. Total sedation time was 15 minutes. FINDINGS: 1. HEMODYNAMICS: Left ventricular end-diastolic pressure is 4 to 6 mm. There is no significant gradient across the aortic valve. 2. LEFT VENTRICULOGRAM: Left ventriculogram is not performed. 3. ANGIOGRAPHIC DATA: Right Coronary Artery: Right coronary artery is a large dominant vessel that was stented previously from proximal all the way to be met and just past the stent there is a 95% focal stenosis. Left Main Coronary Artery: Left main coronary artery appears calcified but is free of significant stenosis. Divides into left anterior descending coronary artery and circumflex coronary artery. Circumflex coronary artery is a small nondominant vessel and gives off a large caliber OM branch that shows mild atherosclerotic plaque in its proximal part. LAD was previously stented in the proximal portion. The stent itself appears patent. There is mild nonobstructive disease proximal and distal to the stent. CONCLUSIONS: [place] 3-vessel coronary artery disease with patent stent within the LAD, patent stent within the right coronary artery with a focal 90% stenosis involving mid RCA. PLAN: Patient will undergo angioplasty with stent placement of mid right coronary artery. MMODL / IJN: [id number] /
[2018-06-21] MEDS ORDERED: BIVALIRUDIN 250 MG in SODIUM CHLORIDE 0.9% 50 ML IV ONE (11:40)
[2018-06-21] MEDS ORDERED: IOPAMIDOL-370 125ML BTL INJ ONE (11:44)
[2018-06-21] MEDS ORDERED: IOPAMIDOL-370 100ML BTL INJ ONE (11:58)
[2018-06-21] MEDS ORDERED: RX INFO: IV CONTRAST WAS GIVEN 1 EACH MISC MISCELLANE PRN (12:07)
[2018-06-21] MEDS ORDERED: NITROGLYCERIN SL TABS 0.4 MG TAB SUBLINGUAL PRN (12:07)
[2018-06-21] MEDS ORDERED: ZOLPIDEM 5 MG TAB PO PRN (12:07)
[2018-06-21] MEDS ORDERED: MAG HYDROX/AL HYDROX/SIMETH 30 ML CUP PO PRN (12:07)
[2018-06-21] MEDS ORDERED: ATROPINE SULFATE 0.1 MG/ML 10ML SYRINGE IV PRN (12:07)
[2018-06-21] MEDS ORDERED: SODIUM CHLORIDE 0.9% 1,000 ML IV SCH (12:15)
--- NOTE | 2018-06-21 12:41 | CC ---
CARDIAC CATHETERIZATION REPORT Coronary angioplasty procedure note on Drea Sosa [phone] please send a. Jose's Mrs. Sosa is a 73-year-old female known history of coronary artery disease status post multivessel coronary angioplasty and stenting, history of diabetes who presented with symptoms of chest discomfort and no and enzymatic changes in view of her symptoms. She underwent cardiac catheterization by Dr. Krause and was found to have critical stenosis involving the mid to heavily calcified right coronary artery. In view of that, recommendation was made regarding angioplasty and stenting the procedures risks and complication were discussed with the patient who is in full understanding and agreement. PROCEDURE: A 6-Swiss FR4 guiding catheter in the system after skin cannulating the right coronary ostium a 0.014 advanced medium weight J-wire was advanced across the lesion, positioned distally. Following that, a 3.0 x 12 mm Trek balloon was advanced and one inflation at 8 atmospheres was done. Following that the balloon was removed and attempt to advance a 3.0 x 12 mm Xience Darya stent were unsuccessful. At that point, the stent was removed and another 0.014 balanced medium weight J-wire was advanced next to the first one in a francisco javier fashion and the balloon was Re advanced and one inflation at 10 atmospheres was done. Following that the balloon was removed and the stent was advanced, deployed and post at 16 atmospheres. After the last inflation, after appropriate wait, the balloon and the guidewire withdrawn back in the guiding catheter. Images were obtained repeated those images reveal stable successful stenting. At that point, the guiding catheter, the balloon and the guidewire were removed. The sheath was removed hemostasis was obtained with deployment of a TR band of a Angio-Seal on study. There was no immediate complication patient is returned to her room in stable condition. Of note, the patient had chest discomfort and EKG changes with the inflation that resolved at the end of the procedure. She received Angiomax per protocol and was continued on clopidogrel. RESULTS: Successful stenting of the mid right coronary artery and heavily calcified segment with reduction of stenosis from 90% to 0%. RECOMMENDATION: Patient be continued on aspirin, Plavix, beta blockers and statin, the importance of dual antiplatelet treatment were discussed with the patient her family and they are in full understanding and agreement. Duration of procedure is 30 minutes. MMODL / IJN: [id number] / [facility]
--- NOTE | 2018-06-21 12:56 | ECHOF ---
Referral Reason:cp MEASUREMENTS -------- HEIGHT: 157.5 cm WEIGHT: 136.1 kg BP: 152/77 RVIDd: 3.2 cm (< 3.3) IVSd: 1.4 cm (0.6 - 1.1) LVIDd: 4.1 cm (3.9 - 5.3) LVPWd: 1.4 cm (0.6 - 1.1) IVSs: 1.7 cm LVIDs: 2.9 cm LVPWs: 1.5 cm LAESV Index (A-L): 28.82 ml/m Ao Diam: 3.2 cm (2.0 - 3.7) AV Cusp: 2.0 cm (1.5 - 2.6) LA Diam: 3.2 cm (2.7 - 3.8) MV EXCURSION: 18.742 mm (> 18.000) MV EF SLOPE: 99 mm/s (70 - 150) EPSS: 0.4 cm MV E William: 0.50 m/s MV DecT: 218 ms MV A William: 0.78 m/s MV E/A Ratio: 0.64 RAP: 5.00 mmHg RVSP: 21.74 mmHg FINDINGS -------- Sinus rhythm. This was a technically adequate study. Morbid Obesity The left ventricular size is normal. There is moderate concentric left ventricular hypertrophy. O verall left ventricular systolic function is low-normal with, an EF between 50 - 55 %. The right ventricle is normal in size. The left atrial size is normal. Normal LA size by volume 22+/-6 ml/m2. The right atrial size is normal. There is mild aortic valve sclerosis. There is no evidence of aortic regurgitation. Mild mitral annular calcification present. Mild mitral regurgitation is present. Mild tricuspid regurgitation present. Right ventricular systolic pressure is normal at < 35 mmHg. Trace/mild (physiologic) pulmonic regurgitation. Normal inferior vena cava with normal inspiratory collapse consistent with estimated right atrial pre ssure of 5 mmHg. CONCLUSIONS -------- 1. Morbid Obesity 2. The left ventricular size is normal. 3. There is moderate concentric left ventricular hypertrophy. 4. Overall left ventricular systolic function is low-normal with, an EF between 50 - 55 %. 5. The right ventricle is normal in size. 6. The left atrial size is normal. 7. Normal LA size by volume 22+/-6 ml/m2. 8. The right atrial size is normal. 9. Interatrial Septum not well visulized. 10. There is mild aortic valve sclerosis. 11. Mild mitral annular calcification present. 12. Mild mitral regurgitation is present. 13. Mild tricuspid regurgitation present. 14. Right ventricular systolic pressure is normal at < 35 mmHg. 15. Trace/mild (physiologic) pulmonic regurgitation. 16. Normal inferior vena cava with normal inspiratory collapse consistent with estimated right atrial pressure of 5 mmHg. ADVANCED CLINICAL SPECIALIST: Diana Benito RDCS
[2018-06-21 13:39] LABS: Glucose,Whole Blood 130 mg/dL (75-99)
[2018-06-21 13:56] VITALS: BMI 54.8
[2018-06-21 16:40] LABS: Glucose,Whole Blood 163 mg/dL (75-99)
[2018-06-21] MEDS: amLODIPine 10 MG TAB PO SCH (20:51)
[2018-06-21] MEDS ORDERED: PRAVASTATIN SODIUM 80 MG TAB PO SCH (21:00)
[2018-06-21 21:01] LABS: Glucose,Whole Blood 244 mg/dL (75-99)
[2018-06-21 22:30] LABS: Glucose,Whole Blood 269 mg/dL (75-99)
[2018-06-21] MEDS: INSULIN DETEMIR (LEVEMIR) 100 UNIT/ML SYR SQ SCH (22:53)
[2018-06-22 06:15] LABS: Mean Platelet Volume 8.7; Platelet Count 149 k/uL (150-450)
[2018-06-22 06:15] LABS: Glucose,Whole Blood 149 mg/dL (75-99)
[2018-06-22 06:45] LABS: Calcium 9.3 mg/dL (8.4-10.2)
[2018-06-22] MEDS: INSULIN ASPART (NovoLOG) 100 UNIT/ML VIAL SQ SCH ×2 (06:46→12:34)
[2018-06-22] MEDS ORDERED: ASPIRIN 81 MG PO SCH (09:00)
--- NOTE | 2018-06-22 09:05 | P.PN ---
Subjective Progress Note Date: 06/22/18 This is a pleasant 73-year-old female past medical history significant for coronary artery disease, hypertension, dyslipidemia, diabetes mellitus and morbid obesity. She follows in the office with Dr. Krause. We have been asked to see her in consultation secondary to chest discomfort. She states Sunday evening while sitting down she started feeling a pressure sensation in the midsternal region associated with nausea. There is no radiation to the arm, back, neck or jaw. She denies associated vomiting, shortness of breath, palpitations or diaphoresis. Her symptoms were consistent and constant since Sunday with no specific aggravating or alleviating factors. She states this feels just like coronary event she has had in the past. Although she does state this seems to be less intense but similar symptoms. She was given 17 nitroglycerin upon arrival to the emergency department that she states did improve her symptoms however they came back approximately 20 minutes later. At the time of my exam she continues to complain of a heavy sensation in the midsternal region and ongoing mild nausea. Patient underwent a stress test which was positive for reversible ischemia, subsequent to that was taken to the cardiac catheterization lab where she underwent angioplasty and stenting of the right coronary artery. Patient was seen and examined this morning, denied any chest pain or difficulty in breathing. Right groin is soft with no evidence EKG shows normal sinus rhythm with no changes from post-PCI. Blood pressure 128/58, heart rate in the 70s, 95% on room air. Sodium 139, potassium 5.0, BUN 19 and creatinine 1.0. Objective - Vital Signs Vital signs: Vital Signs Temp 98.6 F 06/22/18 04:00 Pulse 78 06/22/18 04:00 Resp 16 06/22/18 04:00 BP 128/58 06/22/18 04:00 Pulse Ox 95 06/22/18 04:00 Intake & Output 06/21/18 06/22/18 06/22/18 18:59 06:59 18:59 Intake Total 435 Balance 435 Weight 136.078 kg Intake: IV 195 Oral 240 Other: Voiding Method Indwelling Catheter Toilet # Voids 2 - Exam GENERAL: This is a 73-year-old female in no apparent distress at the time of my examination. HEENT: Head is atraumatic, normocephalic. Pupils are equal, round. Sclerae anicteric. Conjunctivae are clear. Mucous membranes of the mouth are moist. Neck is supple. There is no jugular venous distention. No carotid bruit is heard. LUNGS: Clear to auscultation no wheezes, rales or rhonchi. No chest wall tenderness is noted on palpation or with deep breathing. HEART: Regular rate and rhythm without murmurs, rubs or gallops. S1 and S2 heard. ABDOMEN: Soft, nontender. Bowel sounds are heard. No organomegaly noted. EXTREMITIES: No evidence of peripheral edema and no calf tenderness noted. Rig ht groin soft, no evidence of any hematoma. VASCULAR: Radial and dorsalis pedis pulses palpated, no evidence of clubbing. NEUROLOGIC: Patient is awake, alert and oriented x3. - Labs CBC & Chem 7: 06/22/18 05:52 06/22/18 05:52 Labs: Abnormal Lab Results - Last 24 Hours (Table) 06/21/18 06/21/18 06/21/18 Range/Units 13:38 16:37 20:58 Plt Count (150-450) k/uL Chloride (98-107) mmol/L BUN (7-17) mg/dL Creatinine (0.52-1.04) mg/dL Glucose (74-99) mg/dL POC Glucose (mg/dL) 130 H 163 H 244 H (75-99) mg/dL 06/21/18 06/22/18 06/22/18 Range/Units 22:27 05:52 05:52 Plt Count 149 L (150-450) k/uL Chloride 108 H (98-107) mmol/L BUN 19 H (7-17) mg/dL Creatinine 1.05 H (0.52-1.04) mg/dL Glucose 154 H (74-99) mg/dL POC Glucose (mg/dL) 269 H (75-99) mg/dL 06/22/18 Range/Units 06:12 Plt Count (150-450) k/uL Chloride (98-107) mmol/L BUN (7-17) mg/dL Creatinine (0.52-1.04) mg/dL Glucose (74-99) mg/dL POC Glucose (mg/dL) 149 H (75-99) mg/dL Assessment and Plan Plan: Assessment and plan #1 Unstable angina, status post angioplasty and stenting of the right coronary artery #2 History of coronary artery disease status post multiple stent placements with history of in-stent restenosis 2010 #3 Hypertension #4 Dyslipidemia #5 Diabetes mellitus #6 Morbid obesity, BMI 54 Plan From cardiology's perspective, patient be able to be discharged home today. We will make her a follow-up appointment to see Dr. Krause in the office post discharge. Patient will be discharged home on Norvasc 10 mg daily, Ecotrin 81 mg daily, Plavix 75 mg daily, lisinopril is currently dosed at 40 mg twice a day which we will decrease to 20 mg twice a day, metoprolol 25 mg daily, pravastatin 80 mg daily, and sublingual nitroglycerin as needed for chest pain. DNP note has been reviewed, I agree with a documented findings and plan of care. Patient was seen and examined.
[2018-06-22] MEDS: CLOPIDOGREL 75 MG TAB PO SCH (09:06)
[2018-06-22] MEDS: METOPROLOL SUCCINATE (ER) 25 MG TAB.ER.24H PO SCH (09:06)
[2018-06-22] MEDS ORDERED: LISINOPRIL 20 MG TAB PO STA (09:17)
[2018-06-22] MEDS: LISINOPRIL 20 MG TAB PO SCH (10:14)
[2018-06-22 10:21] VITALS: BP 136/71; PULSE 81; RESP 20; TEMP 97.9
--- NOTE | 2018-06-22 11:28 | PN ---
PROGRESS NOTE DATE OF SERVICE: 06/21/2018 PRESENTING COMPLAINT: Chest pain. INTERVAL HISTORY: Patient admitted with unstable angina. Taken to cardiac cath today, was found to have mid RCA lesion. Successful angioplasty with stenting was carried out. Saw the patient later this evening. Patient is doing better. No chest pain or short of breath. Overall feels much better. REVIEW OF SYSTEMS: Done for constitutional, cardiovascular, GI, pulmonary; relevant findings as above. CURRENT MEDICATIONS: Current medications are reviewed that include Norvasc, aspirin, Plavix, Zestril, Toprol- XL, Pravachol. PHYSICAL EXAMINATION: On examination, temperature 97.7, pulse 93, respiration 18, blood pressure 141/72, pulse ox 97% on room air. GENERAL APPEARANCE: Lying in bed, comfortable. EYES: Pupils equal. Conjunctivae normal. NECK: JVD not raised. Mass not palpable. RESPIRATORY: Effort normal. LUNGS: Diminished breath sounds. CARDIOVASCULAR: Heart sounds muffled. Edema is present. ABDOMEN: Distended, soft. Liver and spleen not palpable. PSYCHIATRY: Alert and oriented x3. Mood and affect normal. LOWER EXTREMITIES: Edema is present and slight discoloration of the right upper ankle. INVESTIGATIONS: Troponins have been negative. ASSESSMENT: 1. Unstable angina in a patient with known coronary artery disease with prior stents. 2. Cardiac catheterization with mid RCA lesion successfully angioplastied and stented. 3. Known coronary artery disease with prior stents. 4. Morbid obesity, body mass index 54.9. 5. Hyperlipidemia. 6. Essential hypertension. 7. Diabetes mellitus type 2, chronically on insulin. 8. Bilateral lower extremity venous insufficiency with history of varicose veins. PLAN: Continue current medication and treatment plan. Patient's home dose of 70/30, will be resumed upon discharge. Care was discussed with the patient. MMODL / IJN: [id number] /
[2018-06-22 12:09] LABS: Glucose,Whole Blood 221 mg/dL (75-99)
[2018-06-22] MEDS ORDERED: LISINOPRIL 20 MG TAB PO SCH (21:00)
--- NOTE | 2018-06-22 22:16 | DS ---
DISCHARGE SUMMARY FINAL DIAGNOSES: 1. Unstable angina with history of CAD stent. 2. Cardiac catheterization with mid RCA lesion status post angioplasty and stenting. 3. Known coronary artery disease with stent. 4. Morbid obesity. 5. Hyperlipidemia. 6. Hypertension. 7. Diabetes type 2. 8. Bilateral lower extremity venous insufficiency with history of the varicose veins. DISCHARGE DISPOSITION: The patient being discharged in stable condition with guarded prognosis. Cardiology cleared the patient for discharge. HISTORY OF PRESENT ILLNESS: This 73-year-old woman with a past medical history of multiple medical problems, admitted with chest pain. Patient underwent cardiac catheterization and stenting as detailed above. Patient improved significantly. Patient treated with antiplatelet agents. Cardiology saw the patient. Cleared the patient for discharge. Vital signs stable. Cardiovascular: S1, S2. Respiratory: Breath sounds diminished at the bases. Scattered rhonchi. Abdomen soft. Nervous system: No focal deficits. Labs are Creatinine is 1.05. RECOMMENDATIONS AND DISCUSSION: Recommended outpatient followup. Discharge diet is cardiac. Activity limited until followup. Follow up with Dr. Miller in 2-3 days. Follow up with Cardiology as recommended. MEDICATIONS: 1. Ecotrin 81 mg p.o. daily. 2. Norvasc 10 mg q.h.s. 3. NovoLog mix 70/30 55U. b.i.d. 4. Plavix 75 mg p.o. daily. 5. Toprol-XL 25 mg p.o. daily. 6. Vasotec 20 mg p.o. b.i.d. 7. Nitrostat 0.4 sublingual p.r.n. 8. Pravachol 80 mg q.h.s. Once again, the patient is being discharged in stable condition with guarded prognosis. MMODL / IJN: [id number] / [facility]
== END 2018-06-22 14:59 | disposition home or self-care (01) ==
LOC: EC 08:42 → 1SOBS 11:15 → INTOOBSV 11:15 → 1SOBS 15:05 → 3SCARD 06-21 16:04
PROVIDERS: ADMIT Hospitalist; ATTEND Hospitalist
DX: I25.110 Atherosclerotic heart disease of native coronary artery with unstable angina pectoris (principal); I10 Essential (primary) hypertension; E78.5 Hyperlipidemia, unspecified; F03.90 Unspecified dementia, unspecified severity, without behavioral disturbance, psychotic disturbance, mood disturbance, and anxiety; E11.9 Type 2 diabetes mellitus without complications; I83.90 Asymptomatic varicose veins of unspecified lower extremity; R60.0 Localized edema; R32 Unspecified urinary incontinence; E66.01 Morbid (severe) obesity due to excess calories; Z68.43 Body mass index [BMI] 50.0-59.9, adult; I87.2 Venous insufficiency (chronic) (peripheral); Z90.710 Acquired absence of both cervix and uterus; I25.2 Old myocardial infarction; Z79.82 Long term (current) use of aspirin; Z79.02 Long term (current) use of antithrombotics/antiplatelets; Z79.4 Long term (current) use of insulin; Z79.899 Other long term (current) drug therapy; Z88.0 Allergy status to penicillin; Z90.49 Acquired absence of other specified parts of digestive tract; Z85.42 Personal history of malignant neoplasm of other parts of uterus; Z96.651 Presence of right artificial knee joint; Z95.5 Presence of coronary angioplasty implant and graft; Z86.79 Personal history of other diseases of the circulatory system; Z82.3 Family history of stroke
CPT/HCPCS: 96376 ×2; 96366 ×3; 96365; 99285; 36415; 93005; 93306; 93458; 83880; 80061; 80053; 80048; 83735; 84484; 85025; 85049 ×2; 85610; 85730 ×2; 71046; 99152; G0378 ×5; C9600; C1769 ×2; C1760; C1887; C1725; C1894; C1874; J1644 ×4; J2001; J3010; J0583; Q9967 ×2; J2250

== ENCOUNTER → 2018-06-25 | Outpatient (CLI) | payer MEDICARE ==
[2018-06-25 11:14] LABS: Basophils # (A) 0.1 k/uL (0-0.2); Basophils % (A) 1 %; Eosinophils # (A) 0.3 k/uL (0-0.7); Eosinophils % (A) 3 %; HCT 44.6 % (34.0-46.0); HGB 14.2 gm/dL (11.4-16.0); Lymphocytes # (A) 1.7 k/uL (1.0-4.8); Lymphocytes % (A) 18 %; MCH 28.8 pg (25.0-35.0); MCHC 31.8 g/dL (31.0-37.0); MCV 90.6 fL (80.0-100.0); Mean Platelet Volume 9.2; Monocytes # (A) 0.5 k/uL (0-1.0); Monocytes % (A) 5 %; Neutrophils % (A) 72 %; Platelet Count 186 k/uL (150-450); RBC 4.92 m/uL (3.80-5.40); RDW 14.4 % (11.5-15.5); WBC 9.7 k/uL (3.8-10.6)
[2018-06-25 18:42] LABS: Anion Gap 6.3 mmol/L (4.00-12.00); Calcium 9.2 mg/dL (8.7-10.3); Carbon Dioxide 27.7 mmol/L (21.6-31.8); Potassium 5.2 mmol/L (3.5-5.5)
== END | disposition home or self-care (01) ==
LOC: LABWHC1 10:34
PROVIDERS: ATTEND Hospitalist
DX: R07.9 Chest pain, unspecified (principal)
CPT/HCPCS: 36415; 80048; 85025

== ENCOUNTER → 2018-08-30 | Day surgery (SDC) | payer MEDICARE ==
[2018-08-30 09:36] VITALS: RESP 16; BMI 54.3
[2018-08-30 11:03] VITALS: BP 119/76; PULSE 84; TEMP 97.5
--- NOTE | 2018-08-30 11:25 | USB ---
EXAMINATION TYPE: US breast needle core addl LT, US breast needle core LT DATE OF EXAM: 08/30/2018 HISTORY: Left breast masses. FINDINGS: Maximal barrier technique was utilized. The skin overlying a suitable path to the patient's mass in the left breast at the 1:00 position was localized with ultrasound and the overlying skin prepped and draped. Ultrasound was utilized with sterile technique. Lidocaine was used for local anesthesia. A skin richar was made with a scalpel. An 18-gauge needle was advanced under direct ultrasound guidance and core specimen obtained of the mass. A ribbon clip was deployed at this site. Similar technique was utilized and the left breast mass at the 3:00 position was biopsied with a 18-gauge needle under ultrasound guidance. A coil clip was deployed. Specimens submitted in formalin to Pathology. Following the procedure, hemostasis achieved and the patient is discharged in stable condition without complication. IMPRESSION:STATUS POST ULTRASOUND GUIDED CORE BIOPSY OF left breast MASSes, PATHOLOGY IS PENDING. THIS PROCEDURE IS PERFORMED BY THE UNDERSIGNED. Pathology Results: Benign A. LEFT BREAST AT 1:00 POSITION, BIOPSY: Predominantly fibrous breast parenchyma consistent with fibrocystic spectrum disease. B. LEFT BREAST LESION AT 3:00 POSITION, BIOPSY: Predominantly fibrous breast parenchyma consistent with fibrocystic spectrum disease. Recommendation Follow up ultrasound of the left breast in 6 months. KELLIE
--- NOTE | 2018-08-30 11:57 | MM ---
Reason for exam: additional evaluation requested from abnormal screening. Last mammogram was performed 1 month ago. History: Patient is postmenopausal and has history of endometrial cancer at age 67. MG Diagnostic Mammo LT Wo CAD CC and LM view(s) were taken of the left breast. Prior study comparison: August 02, 2018, left breast MG 3d work up w/cad LT. June 18, 2018, bilateral MG 3d screening mammo w/cad. ASSESSMENT: Post procedure mammogram for marker placement RECOMMENDATION: Ultrasound of the left breast in 6 months. PENDING PATHOLOGY RESULTS.
== END ==
LOC: RADUSWWP 08:54
PROVIDERS: ATTEND Surgery
DX: N60.32 Fibrosclerosis of left breast (principal); R92.8 Other abnormal and inconclusive findings on diagnostic imaging of breast; Z88.0 Allergy status to penicillin
CPT/HCPCS: 88305; 77065; 19083; 19084; A4648; J2001

== ENCOUNTER → 2018-09-06 | Outpatient (CLI) | payer MEDICARE ==
--- NOTE | 2018-09-06 15:51 | P.GSHP ---
History of Present Illness H&P Date: 09/06/18 Chief Complaint: Abnormal mammogram and ultrasound left breast Drea is a 73-year-old white female who had a bilateral mammogram performed on 08-02-18 which was felt to be incomplete in the field a persistent upper outer quadrant middle depth architectural distortion. Therefore ultrasound of the left breast was recommended. This was performed on 620 119. This revealed a 2.4 x 2.6 by 4.1 cm irregular mixed lesion at 1:00 as well as a 3.1 x 3.2 x 1.6 cm irregular suspicious lesion at 3:00. These were felt to be highly suggestive of malignancy and ultrasound core biopsy of 2 sites was recommended. A dilated ductal ectasia with internal debris is was noted at the posterior nipple. The patient additionally was noted to have a 2 x 1.2 cm oval axillary node. Of concern was the fact that the patient recently had cardiac stents placed and was on aspirin and Plavix and was not able to stop either one. She did undergo core biopsy of 2 areas of concern at 1:00 and 3:00 and [id number]. Pathology revealed only fibrous breast parenchyma consistent with fibrocystic spectrum disease for both lesions. The patient's ultrasound was reviewed with the radiologist and she felt that the findings were discordant. It was therefore recommended that the patient undergo needle localization and excisional biopsy of both of these areas. The patient was additionally noted to have a 2.0 cm oval axillary node which is somewhat suspicious and radiologist recommended core biopsy of this prior to any open biopsy. The patient does not feel anything of concern in her breast. This was a routine screening mammogram. The patient has never had a breast biopsy before. There is no history of any trauma or infection in the breast. No abnormal nipple discharge. No increased breast pain. Family history: brother: of prostate cnacer paternal aunt: colon cancer Hormonal history: Menarche:13 , breast fed: no, age at first : 24 Menopause:51 BCP: 2 weeks hormones: none Surgical history: 1. Cholecystectomy 2. D&C 2 3. Right knee replacement 4. 5 angioplasties/ 6 stints 5. hysterectomy for cancer, ? if took ovaries Medical history: 1.diabetes 2. obesity 3. CAD Social history: smoke: none alcohol:; none drugs: none - Constitutional Constitutional: Denies chills, Denies fever - EENT Eyes: denies blurred vision, denies pain Ears: deny: decreased hearing, tinnitus Ears, nose, mouth and throat: Denies headache, Denies sore throat - Breasts Breasts: bilateral: as per HPI - Cardiovascular Comment: Coronary artery disease, 6 stents the most recent placed in June 2018 - Respiratory Respiratory: Denies cough, Denies 7 - Gastrointestinal Gastrointestinal: Denies abdominal pain, Denies diarrhea, Denies nausea, Denies vomiting - Genitourinary (Female) Genitourinary: Denies dysuria, Denies hematuria - Menstruation Menstruation: Reports postmenopausal - Musculoskeletal Comment: right knee arthritis - Integumentary Integumentary: Denies pruritus, Denies rash - Neurological Neurological: Denies numbness, Denies weakness - Psychiatric Psychiatric: Denies anxiety, Denies depression - Endocrine Comment: diabetes since 1988, insulin dependant - Hematologic/Lymphatic Comment: Aspirin, Plavix - Allergic/Immunologic Allergic/Immunologic: Reports as per HPI Past Medical History Past Medical History: Cancer, Diabetes Mellitus, Hyperlipidemia, Hypertension, Myocardial Infarction ([place]) Last Myocardial Infarction Date:: 2009 History of Any Multi-Drug Resistant Organisms: None Reported Past Surgical History: Cholecystectomy, Hysterectomy, Orthopedic Surgery Additional Past Surgical History / Comment(s): right knee replacement-2017. D&C x 2. History of cardiac stent placement x5. June 2018. last cardiac stent placement Past Psychological History: No Psychological Hx Reported Smoking Status: Never smoker Past Alcohol Use History: None Reported Past Drug Use History: None Reported Medications and Allergies Home Medications Medication Instructions Recorded Confirmed Type Aspirin EC [Ecotrin Low Dose] 81 mg PO DAILY 06/20/18 09/06/18 History Clopidogrel Bisulfate [Plavix] 75 mg PO DAILY 06/20/18 09/06/18 History Enalapril [Vasotec] 20 mg PO BID 06/20/18 09/06/18 History Insuln Asp Prt/Insulin Aspart 55 units SQ BID 06/20/18 09/06/18 History [NovoLOG MIX 70-30 VIAL] Metoprolol Succinate (ER) [Toprol 25 mg PO DAILY 06/20/18 09/06/18 History XL] amLODIPine BESYLATE [Norvasc] 10 mg PO HS 06/20/18 09/06/18 History Nitroglycerin Sl Tabs [Nitrostat] 0.4 mg SUBLINGUAL Q5M PRN #25 tab 06/22/18 09/06/18 Rx Pravastatin Sodium [Pravachol] 40 mg PO HS 08/16/18 09/06/18 History Allergies Allergy/AdvReac Type Severity Reaction Status Date / Time Penicillins Allergy Rash/Hives Verified 09/06/18 15:10 Surgical - Exam Vital Signs Temp Pulse Resp BP Pulse Ox 98.0 F 79 18 171/84 98 09/06/18 15:05 09/06/18 15:05 09/06/18 15:05 09/06/18 15:05 09/06/18 15:05 BMI 54.9 - General obese - Eyes normal ocular movement - ENT no hearing loss, no congestion - Neck no masses, trachea midline - Respiratory normal respiratory effort, clear to auscultation - Cardiovascular Rhythm: regular Heart Sounds: normal: S1, S2 - Abdomen Abdomen: soft, non tender, no guarding, no rigid, no rebound - Integumentary Bilateral pitting edema on the ankles - Neurologic no disoriented, no combative - Musculoskeletal uses a cane secondary to right knee normal posture - Psychiatric oriented to time, oriented to person, oriented to place, speech is normal, memory intact Breast examination: Right breast: Multi-positional exam fibrocystic breast changes Right axilla: No adenopathy of concern Left breast: Multi-positional exam fibrocystic breast changes puncture sites noted from core biopsy, minimal ecchymosis, reaction to this tape is noted on the breast Left axilla: No adenopathy of concern Bra 46DD Results Mammogram and ultrasound reviewed with Assessment and Plan Assessment: Impression: 1.diabetes 2. obesity 3. CAD 4. Abnormal mammogram and ultrasound left breast 5. Discordant biopsy left breast 6. Radiographic the abnormal lymph node left axilla 7. Patient on anticoagulation aspirin and Plavix The patient's radiographs have been reviewed with the radiologist, Dr. Meza, it was felt that the area of concern in the left breast was discordant radiographically with fibrocystic breast tissue which was seen on the core biopsy. Additionally there is a lymph node of concern in the left axilla. This the radiologist's recommendation that the patient have a core biopsy of the lymph node to rule out malignancy. Depending on the results of that needle localization and excisional biopsy of the area both 1 and 3:00 I recommended. Of concern is the fact that the patient is on anticoagulation secondary to her cardiac disease however in order to diagnose possible breast cancer it is felt that this most likely be necessary. Plan: 1. Ultrasound-guided core biopsy left axillary lymph node 2. Needle local excisional biopsy of areas of concern in the left breast 3. Most likely the patient is not a good candidate for an MRI secondary to the cardiac stents 4. Follow-up after ultrasound-guided core biopsy left axillary lymph node This and benefits of core biopsy discussed with the patient. This will be scheduled in the near future. She wishes to proceed. After that decision will be made as to needle local excisional biopsy of the area of concern in the left breast. Cc: Mickie Castillo MANAGER RESOURCE ([place])
== END ==
DX: Z53.9 Procedure and treatment not carried out, unspecified reason (principal)

== ENCOUNTER 2018-09-10 12:31 | Inpatient (IN) | payer MEDICARE ==
[2018-09-10] MEDS ORDERED: NITROGLYCERIN OINT 1 INCH/GM PACKET TOPICAL STA (12:49)
[2018-09-10] MEDS ORDERED: ASPIRIN 81 MG PO STA (12:49)
--- NOTE | 2018-09-10 12:52 | ED ---
General Adult HPI - General Chief complaint: Chest Pain Stated complaint: Chest Pain x1 week Time Seen by Provider: 09/10/18 12:43 Source: patient, RN notes reviewed Mode of arrival: ambulatory Limitations: no limitations - History of Present Illness Initial comments: Patient is a pleasant 73-year-old female presenting to the emergency Department with comfort. Patient has been having symptoms over the past week. Patient complains of indigestion or discomfort in her chest. Patient states discomfort sometimes last for a couple of hours. Patient took 2 nitroglycerin prior to arrival with resolution of symptoms. No associated dyspnea, nausea, or diaphoresis. Symptoms are similar to previous heart attacks or patient did have stent placed several months ago. - Related Data Home Medications Medication Instructions Recorded Confirmed Aspirin EC [Ecotrin Low Dose] 81 mg PO DAILY 06/20/18 09/10/18 Clopidogrel Bisulfate [Plavix] 75 mg PO DAILY 06/20/18 09/10/18 Enalapril [Vasotec] 20 mg PO BID 06/20/18 09/10/18 Insuln Asp Prt/Insulin Aspart 55 units SQ BID 06/20/18 09/10/18 [NovoLOG MIX 70-30 VIAL] Metoprolol Succinate (ER) [Toprol 25 mg PO DAILY 06/20/18 09/10/18 XL] amLODIPine BESYLATE [Norvasc] 10 mg PO HS 06/20/18 09/10/18 Pravastatin Sodium [Pravachol] 40 mg PO HS 08/16/18 09/10/18 Previous Rx's Medication Instructions Recorded Nitroglycerin Sl Tabs [Nitrostat] 0.4 mg SUBLINGUAL Q5M PRN #25 tab 06/22/18 Allergies Allergy/AdvReac Type Severity Reaction Status Date / Time Penicillins Allergy Rash/Hives Verified 09/10/18 13:36 Review of Systems ROS Statement: Those systems with pertinent positive or pertinent negative responses have been documented in the HPI. ROS Other: All systems not noted in ROS Statement are negative. Constitutional: Denies: fever Eyes: Denies: eye pain ENT: Denies: ear pain Respiratory: Denies: cough, dyspnea Cardiovascular: Reports: chest pain Endocrine: Denies: fatigue Gastrointestinal: Denies: abdominal pain Genitourinary: Denies: dysuria Musculoskeletal: Denies: back pain Skin: Denies: rash Neurological: Denies: weakness Psychiatric: Reports: anxiety Past Medical History Past Medical History: Cancer, Diabetes Mellitus, Hyperlipidemia, Hypertension, Myocardial Infarction (DC) Last Myocardial Infarction Date:: 2009 History of Any Multi-Drug Resistant Organisms: None Reported Past Surgical History: Cholecystectomy, Hysterectomy, Orthopedic Surgery Additional Past Surgical History / Comment(s): right knee replacement-2017. D&C x 2. History of cardiac stent placement x5. June 2018. last cardiac stent placement Past Psychological History: No Psychological Hx Reported Smoking Status: Never smoker Past Alcohol Use History: None Reported Past Drug Use History: None Reported General Exam Limitations: no limitations General appearance: alert, in no apparent distress Head exam: Present: atraumatic Eye exam: Present: normal appearance, PERRL ENT exam: Present: normal oropharynx Neck exam: Present: normal inspection Respiratory exam: Present: normal lung sounds bilaterally Cardiovascular Exam: Present: regular rate, normal rhythm Expanded Peripheral pulses: 2+: Radial (R), Radial (L), Posterior Tibialis (R), Posterior Tibialis (L) GI/Abdominal exam: Present: soft. Absent: tenderness Extremities exam: Present: pedal edema (Patient states chronic). Absent: calf tenderness Neurological exam: Present: alert Psychiatric exam: Present: normal affect, normal mood Skin exam: Present: normal color Course Vital Signs 09/10/18 09/10/18 12:40 13:23 Temperature 98.0 F Pulse Rate 85 87 Respiratory 16 16 Rate Blood Pressure 153/75 190/102 O2 Sat by Pulse 97 99 Oximetry EKG Findings - EKG Comments: EKG Findings:: Normal sinus rhythm 86. CO 126. QRS 94. QT 376. QTc 449. Left axis. LVH criteria. Septal Q waves. No acute ST change. Medical Decision Making - Medical Decision Making Patient reevaluated and resting comfortably in bed. Blood pressure is improved. Patient and family updated on results and plan. Case was discussed in detail with Dr. rincon, covering with Dr. Miller, who will admit. - Lab Data Result diagrams: 09/10/18 13:12 09/10/18 13:12 Lab Results 09/10/18 09/10/18 09/10/18 Range/Units 13:12 13:12 13:12 WBC 8.6 (3.8-10.6) k/uL RBC 4.99 (3.80-5.40) m/uL Hgb 14.5 (11.4-16.0) gm/dL Hct 45.1 (34.0-46.0) % MCV 90.4 (80.0-100.0) fL MCH 29.0 (25.0-35.0) pg MCHC 32.1 (31.0-37.0) g/dL RDW 13.5 (11.5-15.5) % Plt Count 204 (150-450) k/uL Neutrophils % 73 % Lymphocytes % 19 % Monocytes % 5 % Eosinophils % 2 % Basophils % 1 % Neutrophils # 6.3 (1.3-7.7) k/uL Lymphocytes # 1.6 (1.0-4.8) k/uL Monocytes # 0.4 (0-1.0) k/uL Eosinophils # 0.1 (0-0.7) k/uL Basophils # 0.1 (0-0.2) k/uL PT 9.8 (9.0-12.0) sec INR 0.9 (<1.2) APTT 24.4 (22.0-30.0) sec Sodium 144 (137-145) mmol/L Potassium 4.6 (3.5-5.1) mmol/L Chloride 105 (98-107) mmol/L Carbon Dioxide 29 (22-30) mmol/L Anion Gap 10 mmol/L BUN 18 H (7-17) mg/dL Creatinine 1.13 H (0.52-1.04) mg/dL Est GFR (CKD-EPI)AfAm 56 (>60 ml/min/1.73 sqM) Est GFR (CKD-EPI)NonAf 49 (>60 ml/min/1.73 sqM) Glucose 184 H (74-99) mg/dL Calcium 9.3 (8.4-10.2) mg/dL Magnesium 2.2 (1.6-2.3) mg/dL Total Bilirubin 0.7 (0.2-1.3) mg/dL AST 19 (14-36) U/L ALT 9 (9-52) U/L Alkaline Phosphatase 103 (38-126) U/L Troponin I (0.000-0.034) ng/mL Total Protein 7.3 (6.3-8.2) g/dL Albumin 3.9 (3.5-5.0) g/dL 07/30/19 Range/Units 13:12 WBC (3.8-10.6) k/uL RBC (3.80-5.40) m/uL Hgb (11.4-16.0) gm/dL Hct (34.0-46.0) % MCV (80.0-100.0) fL MCH (25.0-35.0) pg MCHC (31.0-37.0) g/dL RDW (11.5-15.5) % Plt Count (150-450) k/uL Neutrophils % % Lymphocytes % % Monocytes % % Eosinophils % % Basophils % % Neutrophils # (1.3-7.7) k/uL Lymphocytes # (1.0-4.8) k/uL Monocytes # (0-1.0) k/uL Eosinophils # (0-0.7) k/uL Basophils # (0-0.2) k/uL PT (9.0-12.0) sec INR (<1.2) APTT (22.0-30.0) sec Sodium (137-145) mmol/L Potassium (3.5-5.1) mmol/L Chloride (98-107) mmol/L Carbon Dioxide (22-30) mmol/L Anion Gap mmol/L BUN (7-17) mg/dL Creatinine (0.52-1.04) mg/dL Est GFR (CKD-EPI)AfAm (>60 ml/min/1.73 sqM) Est GFR (CKD-EPI)NonAf (>60 ml/min/1.73 sqM) Glucose (74-99) mg/dL Calcium (8.4-10.2) mg/dL Magnesium (1.6-2.3) mg/dL Total Bilirubin (0.2-1.3) mg/dL AST (14-36) U/L ALT (9-52) U/L Alkaline Phosphatase (38-126) U/L Troponin I <0.012 (0.000-0.034) ng/mL Total Protein (6.3-8.2) g/dL Albumin (3.5-5.0) g/dL - Radiology Data Radiology results: image reviewed (Chest x-ray shows no acute process) Disposition Clinical Impression: Chest pain Disposition: ADMITTED IP TO THIS [facility] Is patient prescribed a controlled substance at d/c from ED?: No Referrals: Swapnil Miller MD [Primary Care Provider] - 1-2 days Decision Time: 14:55
[2018-09-10 13:37] LABS: Basophils # (A) 0.1 k/uL (0-0.2); Basophils % (A) 1 %; Eosinophils # (A) 0.1 k/uL (0-0.7); Eosinophils % (A) 2 %; HCT 45.1 % (34.0-46.0); HGB 14.5 gm/dL (11.4-16.0); Lymphocytes # (A) 1.6 k/uL (1.0-4.8); Lymphocytes % (A) 19 %; MCHC 32.1 g/dL (31.0-37.0); MCV 90.4 fL (80.0-100.0); Mean Platelet Volume 8.5; Monocytes # (A) 0.4 k/uL (0-1.0); Monocytes % (A) 5 %; Neutrophils # (A) 6.3 k/uL (1.3-7.7); Neutrophils % (A) 73 %; Platelet Count 204 k/uL (150-450); RBC 4.99 m/uL (3.80-5.40); RDW 13.5 % (11.5-15.5); WBC 8.6 k/uL (3.8-10.6)
[2018-09-10 13:46] LABS: INR 0.9 (<1.2); Partial Thromboplastin Time 24.4 sec (22.0-30.0); Prothrombin Time 9.8 sec (9.0-12.0)
[2018-09-10 13:52] LABS: Albumin 3.9 g/dL (3.5-5.0); Calcium 9.3 mg/dL (8.4-10.2); Magnesium 2.2 mg/dL (1.6-2.3); Potassium 4.6 mmol/L (3.5-5.1); Total Bilirubin 0.7 mg/dL (0.2-1.3); Total Protein 7.3 g/dL (6.3-8.2)
--- NOTE | 2018-09-10 13:53 | XR ---
EXAMINATION TYPE: XR chest 2V DATE OF EXAM: 09/10/2018 COMPARISON: 06/20/2018 TECHNIQUE: PA and lateral views submitted. HISTORY: Chest pain FINDINGS: The lungs are clear and there is no pneumothorax, pleural effusion, or focal pneumonia. Atheroscler otic change aorta. Hypertrophic and degenerative change spine. No overt failure. IMPRESSION: 1. No acute process.
[2018-09-10] MEDS ORDERED: NITROGLYCERIN SL TABS 0.4 MG TAB SUBLINGUAL PRN (14:55)
[2018-09-10] MEDS: NITROGLYCERIN OINT 1 INCH/GM PACKET TOPICAL SCH (18:24)
[2018-09-10 18:46] LABS: Glucose,Whole Blood 162 mg/dL (75-99)
[2018-09-10] MEDS: INSULN ASP PRT/INSULIN ASPART 100 UNIT/ML 10 ML VIAL SQ SCH (18:46)
[2018-09-10] MEDS: amLODIPine 10 MG TAB PO SCH (21:39)
[2018-09-10] MEDS: PRAVASTATIN SODIUM 40 MG TAB PO SCH (21:39)
[2018-09-10] MEDS: LISINOPRIL 20 MG TAB PO SCH (21:39)
--- NOTE | 2018-09-10 23:39 | P.HPIM ---
History of Present Illness H&P Date: 09/10/18 Chief Complaint: Chest pain History of presenting complaint: This is a pleasant 73-year-old patient of Dr. Miller. Chronic stable medical conditions include coronary artery disease with a RCA stent in June of this year, and prior stents., Hyperlipidemia, hypertension, diabetes mellitus type 2, chronic bilateral lower extremity venous insufficiency from chronic varicose veins. Patient presents with 2 days of anterior chest wall chest pain. It is sharp in nature patient. It's worse when she lies down and better if she sits up. Patient will food is also's got some viral upper respiratory tract infection symptoms. Denies any orthopnea. Always uses. N pillows . No o fever no chills. patient's family the bedside. Review of systems: GEN.: Tired EYES: None HEENT: None NECK: None RESPIRATORY: As above CARDIOVASCULAR: As above GASTROINTESTINAL: None GENITOURINARY: None MUSCULOSKELETAL: Pain in the joints as above LYMPHATICS: None HEMATOLOGICAL: None PSYCHIATRY: None NEUROLOGICAL: None Past medical history to include: Coronary artery disease with stent including a RCA lesion and June of this year, hyperlipidemia, hypertension, diabetes mellitus type 2, bilateral lower extremity venous insufficiency from history of varicose veins Social history: no smoking. No alcohol. Family history: Father had a stroke Physical examination: VITAL SIGNS: 98, 85, 16, 153/75, 97% room air GENERAL: BMI 54.9, sitting up in bed to bit tired appearing. EYES: Pupils equal. Conjunctiva normal. HEENT: External appearance of nose and ears normal, oral cavity grossly normal. NECK: JVD not raised; masses not palpable. HEART: First and second heart sounds are normal; edema present. LUNGS: Respiratory rate normal; clear to auscultation. ABDOMEN: Soft, nontender, liver spleen not palpable, no masses palpable. PSYCH: Alert and oriented x3; mood and affect normal. NEUROLOGICAL: Cranial nerves grossly intact; no facial asymmetry, power and sensation grossly intact. LYMPHATICS: No lymph nodes palpable in the axilla and neck EXTREMITY: Swelling of bilateral lower extremity, with some pitting edema Investigations, reviewed in the clinical context: White count 9.6-year-old woman 14.5 potassium 4.6 and 18 creatinine 1.13 Troponin I 2 less than 0.012 -EKG tracing personally reviewed by me shows poor R-wave progression prominent T waves in V2 to V6 Chest x-ray film personally reviewed by me shows borderline cardiac medically. No obvious infiltrates Assessment: -This is a patient presents with 3 days of sharp anterior wall pain. Worse when she lies down and better when sitting up. Patient is also at 3 to 4 days of what up is to be a viral upper respiratory tract infection. Patient may be having a low-grade pericarditis. Troponins are negative. -Coronary artery disease with prior history of stent -Hyperlipidemia -Essential hypertension -Diabetes mellitus type 2 -Bilateral chronic lower extremity venous insufficiency from history of varicose veins -Morbid obesity BMI 54.9 Plan: This is according enzymes are being done. Cardiology was consulted. We will check a proBNP. Patient does not appear to be in CHF. We'll order 2-D echo for tomorrow morning. Care was discussed the patient and family the bedside. Questions were answered. Past Medical History Past Medical History: Cancer, Diabetes Mellitus, Hyperlipidemia, Hypertension, Myocardial Infarction (MD) Last Myocardial Infarction Date:: 2009 History of Any Multi-Drug Resistant Organisms: None Reported Past Surgical History: Cholecystectomy, Hysterectomy, Orthopedic Surgery Additional Past Surgical History / Comment(s): right knee replacement-2016. D&C x 2. History of cardiac stent placement x5. June 2018. last cardiac stent placement Past Psychological History: No Psychological Hx Reported Smoking Status: Never smoker Past Alcohol Use History: None Reported Past Drug Use History: None Reported - Past Family History Mother Family Medical History: Myocardial Infarction (MD) Father Family Medical History: CVA/TIA Brother(s) Family Medical History: Cancer, Coronary Artery Disease (CAD) Son(s) Family Medical History: No Reported History Daughter(s) Family Medical History: No Reported History Medications and Allergies Home Medications Medication Instructions Recorded Confirmed Type Aspirin EC [Ecotrin Low Dose] 81 mg PO DAILY 06/20/18 09/10/18 History Clopidogrel Bisulfate [Plavix] 75 mg PO DAILY 06/20/18 09/10/18 History Enalapril [Vasotec] 20 mg PO BID 06/20/18 09/10/18 History Insuln Asp Prt/Insulin Aspart 55 units SQ BID 06/20/18 09/10/18 History [NovoLOG MIX 70-30 VIAL] Metoprolol Succinate (ER) [Toprol 25 mg PO DAILY 06/20/18 09/10/18 History XL] amLODIPine BESYLATE [Norvasc] 10 mg PO HS 06/20/18 09/10/18 History Nitroglycerin Sl Tabs [Nitrostat] 0.4 mg SUBLINGUAL Q5M PRN #25 tab 06/22/18 09/10/18 Rx Pravastatin Sodium [Pravachol] 40 mg PO HS 08/16/18 09/10/18 History Allergies Allergy/AdvReac Type Severity Reaction Status Date / Time Penicillins Allergy Rash/Hives Verified 09/10/18 21:01 Physical Exam Vitals: Vital Signs Temp Pulse Pulse Resp BP BP Pulse Ox 09/10/18 20:00 98.0 F 80 15 159/74 95 09/10/18 19:38 98 F 77 18 154/81 97 09/10/18 18:29 86 16 177/87 98 09/10/18 15:21 83 16 140/79 98 09/10/18 13:23 87 16 190/102 99 09/10/18 12:40 98.0 F 85 16 153/75 97 Intake and Output 09/10/18 09/10/18 09/11/18 14:59 22:59 06:59 Other: Voiding Method Toilet Toilet # Voids 1 Weight 136.078 kg Results CBC & Chem 7: 09/10/18 13:12 09/10/18 13:12 Labs: Abnormal Lab Results - Last 24 Hours (Table) 09/10/18 09/10/18 Range/Units 13:12 18:26 BUN 18 H (7-17) mg/dL Creatinine 1.13 H (0.52-1.04) mg/dL Glucose 184 H (74-99) mg/dL POC Glucose (mg/dL) 162 H (75-99) mg/dL Thrombosis Risk Factor Assmnt - Choose All That Apply Any of the Below Risk Factors Present?: Yes Each Factor Represents 1 point: Obesity (BMI >25), Swollen legs (current), Varicose veins Other Risk Factors: Yes Each Risk Factor Represents 2 Points: Age 61-74 years Other congenital or acquired thrombophilia - If yes, enter type in comment: No Thrombosis Risk Factor Assessment Total Risk Factor Score: 5 Thrombosis Risk Factor Assessment Level: High Risk
[2018-09-11] MEDS: NITROGLYCERIN OINT 1 INCH/GM PACKET TOPICAL SCH ×5 (00:04→23:59)
[2018-09-11 02:31] LABS: Cholesterol 142 mg/dL (<200); HDL Cholesterol 39 mg/dL (40-60); LDL Cholesterol,Calculated 82 mg/dL (0-99); Triglycerides 103 mg/dL (<150)
[2018-09-11 06:20] LABS: Glucose,Whole Blood 100 mg/dL (75-99)
[2018-09-11] MEDS ORDERED: REGADENOSON 0.4 MG/5 ML SYRINGE IV ONE ×2 (08:00→08:28)
--- NOTE | 2018-09-11 08:06 | CONS ---
CONSULTATION Drea Sosa is a 73-year-old lady with a history of hypertension, hyperlipidemia, type 2 diabetes, obesity, who sees Dr. Krause in the outpatient setting. She has a known history of CAD and in 2009 had a stenting of LAD performed. She also had RCA stenting. Very recently in June of this year, she had a mid RCA stenting performed by Dr. Denise. The patient has been doing fairly well. She is quite sedentary, does not do much physical activity. She came into the hospital mainly with complaints of having discomfort in the chest when she lies down and feels better when she sits up. However, she does not seem to have any other pleuritic component to the pain. She is asymptomatic at the time of my evaluation, but earlier this morning, she also complained of some epigastric burning sensation along with this discomfort seems to feel better when she sits up. She may have gastroesophageal reflux as well in addition to her other comorbid conditions. PAST MEDICAL HISTORY: 1. CAD with recent RCA stenting in June of this year. She had prior LAD stenting in the past. 2. Hypertension. 3. Hyperlipidemia. 4. Chronic lower extremity edema with chronic venous insufficiency. 5. Obesity. 6. History of bilateral varicose veins. 7. She is status post right total knee arthroplasty performed in 2017. EKG revealed a sinus mechanism with evidence of leftward axis with borderline LVH by voltage criteria and QS pattern in leads V1 to V3. Cannot exclude old septal [place]. No acute changes. LABORATORY DATA: Laboratory data revealed that all troponins are normal. No other significant abnormalities were noted. MEDICATIONS: Medications at home include aspirin 81 mg daily, Plavix 75 mg daily, Pravachol 40 mg daily, Norvasc 10 mg daily, metoprolol succinate 25 mg daily, insulin, and also she takes enalapril 20 mg b.i.d. PHYSICAL EXAMINATION: On examination, blood pressure is 140/70, pulse rate is 80 per minute regular. HEENT unremarkable. Fundus was not examined by me. Neck is supple. There is JVD of 1 cm. No carotid bruit. Heart exam reveals S1, S2 with distant heart sound. Short systolic murmur at the base with preserved second heart sound. Lungs are clear. Abdomen is soft, nontender. Lower extremities reveal significant bilateral edema. Pulses cannot be felt. Central nervous system grossly no focal deficits. IMPRESSION: 1. Chest pain syndrome, very atypical, cannot exclude angina, however, in a patient with multivessel PCI. 2. Obesity. 3. Hypertension. 4. Hyperlipidemia. 5. Type 2 diabetes mellitus. 6. Probable gastroesophageal reflux disease. RECOMMENDATIONS: I am recommending that we will start her on Protonix 10 mg daily, perform a Lexiscan stress test, decrease the aspirin to 81 mg daily and put her on 0.9 saline 75 mL/hour. Discussed my thoughts in detail with the patient. Thank you very much for the consult. MMMOIRAL / IJN: [id number] /
[2018-09-11] MEDS ORDERED: AMINOPHYLLINE 500 MG/20 ML VIAL IV PRN (08:28)
[2018-09-11] MEDS ORDERED: CAFFEINE CITRATE 60 MG/3 ML VIAL IV PRN (08:28)
[2018-09-11] MEDS ORDERED: ASPIRIN 325 MG TAB PO SCH (09:00)
[2018-09-11] MEDS: INSULN ASP PRT/INSULIN ASPART 100 UNIT/ML 10 ML VIAL SQ SCH ×2 (09:29→17:20)
[2018-09-11] MEDS ORDERED: AMINOPHYLLINE 250 MG/10 ML VIAL IV ONE (10:25)
[2018-09-11] MEDS: LISINOPRIL 20 MG TAB PO SCH ×2 (11:36→22:44)
[2018-09-11] MEDS: ASPIRIN 81 MG PO SCH (11:36)
[2018-09-11] MEDS: CLOPIDOGREL 75 MG TAB PO SCH (11:36)
[2018-09-11] MEDS: METOPROLOL SUCCINATE (ER) 25 MG TAB.ER.24H PO SCH (11:37)
[2018-09-11] MEDS: SODIUM CHLORIDE 0.9% 1,000 ML IV SCH ×2 (11:39→22:44)
[2018-09-11 11:40] LABS: Glucose,Whole Blood 139 mg/dL (75-99)
--- NOTE | 2018-09-11 12:22 | NM ---
EXAMINATION TYPE: NM stress lexiscan cardiolite DATE OF EXAM: 09/11/2018 COMPARISON: NONE HISTORY: Chest pain TECHNIQUE: After the intravenous administration of 10.36 mCi Tc 99m Sestamibi - Cardiolite resting S PECT images acquired 55 minutes post injection. The patient received 0.4mg Lexiscan, 27.1 mCi Tc 99m Sestamibi - Stress images obtained [address] injection, patient received 100 mg Aminophyllin IV FINDINGS: Review of stress and rest SPECT images demonstrates decreased radio pharmaceutical uptake along the i nferolateral left ventricle on stress as compared to rest images. Some mild decreased radio pharmace utical uptake noted along anterior wall on both stress and rest images towards the base of the heart. Gated analysis shows normal wall motion with an estimated left ventricular ejection fraction of 46 % . IMPRESSION: Pharmacologically induced left ventricular myocardial ischemia. Evidence of previous infarction.
[2018-09-11] MEDS ORDERED: SODIUM CHLORIDE 0.9% 1,000 ML in EMPTY BAG 1 BAG IV ONE (12:36)
[2018-09-11] MEDS ORDERED: ALPRAZolam 0.25 MG TAB PO PRN (12:36)
[2018-09-11] MEDS ORDERED: ALPRAZolam 0.5 MG TAB PO PRN (12:36)
--- NOTE | 2018-09-11 13:05 | ECHOF ---
Referral Reason:Coronary artery disease MEASUREMENTS -------- HEIGHT: 157.5 cm WEIGHT: 136.1 kg BP: 145/70 RVIDd: 3.6 cm (< 3.3) IVSd: 1.3 cm (0.6 - 1.1) LVIDd: 4.7 cm (3.9 - 5.3) LVPWd: 1.2 cm (0.6 - 1.1) IVSs: 2.0 cm LVIDs: 3.2 cm LVPWs: 1.7 cm LA Diam: 3.2 cm (2.7 - 3.8) LAESV Index (A-L): 17.96 ml/m Ao Diam: 3.6 cm (2.0 - 3.7) AV Cusp: 1.9 cm (1.5 - 2.6) MV EXCURSION: 10.325 mm (> 18.000) MV EF SLOPE: 32 mm/s (70 - 150) EPSS: 1.0 cm MV E William: 0.70 m/s MV DecT: 205 ms MV A William: 0.95 m/s MV E/A Ratio: 0.74 FINDINGS -------- Sinus rhythm. This was a technically adequate study. The left ventricular size is normal. There is mild concentric left ventricular hypertrophy. Overa ll left ventricular systolic function is normal with, an EF between 60 - 65 %. The right ventricle is mildly enlarged. Normal LA size by volume 22+/-6 ml/m2. The right atrium is normal in size. Lipomatous Hypertrophy of the atrial septum is present Aneurysmal Interatrial septum. Aortic valve is trileaflet and is mildly thickened. The mitral valve is normal. The tricuspid valve appears structurally normal. The pulmonic valve was not well visualized. The aortic root size is normal. IVC Not well visulized. There is no pericardial effusion. CONCLUSIONS -------- 1. Sinus rhythm. 2. This was a technically adequate study. 3. The left ventricular size is normal. 4. There is mild concentric left ventricular hypertrophy. 5. Overall left ventricular systolic function is normal with, an EF between 60 - 65 %. 6. The right ventricle is mildly enlarged. 7. Normal LA size by volume 22+/-6 ml/m2. 8. The right atrium is normal in size. 9. Lipomatous Hypertrophy of the atrial septum is present 10. Aneurysmal Interatrial septum. 11. Aortic valve is trileaflet and is mildly thickened. 12. The mitral valve is normal. 13. The tricuspid valve appears structurally normal. 14. The pulmonic valve was not well visualized. 15. The aortic root size is normal. 16. IVC Not well visulized. 17. There is no pericardial effusion. PICTURE FRAMER: Blanca Caal RDCS
[2018-09-11] MEDS ORDERED: MAGNESIUM HYDROXIDE 2,400 MG/10 ML CUP PO PRN (14:37)
--- NOTE | 2018-09-11 14:37 | P.PN ---
Progress Note - Text Abnormal stress test reviewed and discussed in detail with the patient. We recommend proceeding with cardiac catheterization to assess for progression of coronary artery disease or in-stent restenosis. I have discussed the risks, benefits and alternative therapies for the above-mentioned procedure and for both sedation/analgesia as well as necessary blood product administration, if indicated, as they pertain to this patient. The patient has indicated understanding and acceptance of the risks and procedures discussed. Questions have been answered appropriately and she is agreeable to move forward with the above-stated procedure. This has been ordered for tomorrow morning with her primary change management lead Dr. Krause. The patient is voicing some concerns about recent constipation is in requesting assistance, milk of magnesia will be ordered.
--- NOTE | 2018-09-11 14:44 | EST ---
EXERCISE STRESS AGE: 73 SEX: F HT: 5'2" WT: 300 PROTOCOL: Persantine Cardiolite HEART RATE REST: 81 BLOOD PRESSURE REST: 133/60 MAXIMUM HEART RATE ACHIEVED: 105 MAXIMUM BLOOD PRESSURE: 102/63 85% MPHR: 136 100% MPHR: 148 INDICATIONS: Chest pain. CLINICAL INFORMATION: Baseline EKG revealed normal sinus rhythm with poor R-wave progression of precordial leads. With Lexiscan administration, patient developed some ST-T abnormality in lead 1 and aVL. However, this is a downsloping ST-segment depression with T-wave inversion. She did not have any clear-cut angina. No other ST-segment abnormality was noted. By EKG criteria equivocal stress test without clear-cut evidence of ischemia. The nuclear scan results which are more pertinent will be reported by the radiologist. MONE / LITA: [id number] /
--- NOTE | 2018-09-11 15:46 | P.PN ---
Progress Note - Text Progress Note Date: 09/11/18 Chief Complaint: Chest pain Interval history: This is a pleasant 73-year-old patient of Dr. Miller. Chronic stable medical conditions include coronary artery disease with a RCA stent in June of this year, and prior stents., Hyperlipidemia, hypertension, diabetes mellitus type 2, chronic bilateral lower extremity venous insufficiency from chronic varicose veins. Patient presents with 2 days of anterior chest wall chest pain. It is sharp in nature patient. It's worse when she lies down and better if she sits up. Patient will food is also's got some viral upper respiratory tract infection symptoms. Denies any orthopnea. Always uses2 thin pillows . Today-sitting up in bed. Had a stress test earlier today. No new symptoms. Seen by cardiology. Review of systems: Was done for constitutional, cardiovascular, GI, pulmonary. relevant finding as above Active Medications Alprazolam (Xanax) 0.25 mg PO Q6HR PRN PRN Reason: Mild Anxiety Alprazolam (Xanax) 0.5 mg PO Q6HR PRN PRN Reason: Moderate Anxiety Aminophylline (Aminophylline) 100 mg IV ONCE PRN PRN Reason: Patient Response Amlodipine Besylate (Norvasc) 10 mg PO HS [facility] Last Admin: 09/10/18 21:39 Dose: 10 mg Documented by: Aspirin (Aspirin) 81 mg PO DAILY [facility] Last Admin: 09/11/18 11:36 Dose: 81 mg Documented by: Caffeine Citrate (Cafcit Inj) 60 mg IV ONCE PRN PRN Reason: Patient Response Clopidogrel Bisulfate (Plavix) 75 mg PO DAILY [facility] Last Admin: 09/11/18 11:36 Dose: 75 mg Documented by: Sodium Chloride (Saline 0.9%) 1,000 mls @ 75 mls/hr IV .[id number] [facility] Last Admin: 09/11/18 11:39 Dose: 75 mls/hr Documented by: Sodium Chloride 1,000 ml/ IV (Solution) 1,000 mls @ 136.078 mls/hr IV .[id number] ONE Stop: 09/11/18 19:56 Insulin Aspart (Novolog Mix 70-30 Vial) 55 unit SQ AC-BID [facility] Last Admin: 09/11/18 09:29 Dose: Not Given Documented by: Lisinopril (Zestril) 40 mg PO BID [facility] Last Admin: 09/11/18 11:36 Dose: 40 mg Documented by: Magnesium Hydroxide (Milk Of Magnesia) 1,200 mg PO QID PRN PRN Reason: Indigestion Last Admin: 09/11/18 15:40 Dose: 1,200 mg Documented by: Metoprolol Succinate (Toprol Xl) 25 mg PO DAILY [facility] Last Admin: 09/11/18 11:37 Dose: 25 mg Documented by: Nitroglycerin (Nitro-Bid Oint) 1 inch TOPICAL Q6HR [facility] Last Admin: 09/11/18 11:45 Dose: Not Given Documented by: Nitroglycerin (Nitrostat) 0.4 mg SUBLINGUAL Q5M PRN PRN Reason: Chest Pain Pantoprazole Sodium (Protonix) 40 mg PO AC-BRKFST [facility] Pravastatin Sodium (Pravachol) 40 mg PO HS [facility] Last Admin: 09/10/18 21:39 Dose: 40 mg Documented by: Sodium Chloride (Saline Flush) 10 ml IV BID [facility] Last Admin: 09/11/18 11:37 Dose: 10 ml Documented by: Physical examination: VITAL SIGNS: 97.9, 87, 18, 159/80, 97% room air GENERAL: BMI 54.9, sitting up, tired appearing. EYES: Pupils equal. Conjunctiva normal. HEENT: External appearance of nose and ears normal, oral cavity grossly normal. NECK: JVD not raised; masses not palpable. HEART: First and second heart sounds are normal; edema present. LUNGS: Respiratory rate normal; clear to auscultation. ABDOMEN: Soft, nontender, liver spleen not palpable, no masses palpable. PSYCH: Alert and oriented x3; mood and affect normal. EXTREMITY: Swelling of bilateral lower extremity, with some pitting edema Investigations, reviewed in the clinical context: Troponin I 3 Previous tests: White count 8. hemoglobin 14.5 potassium 4.6 and 18 creatinine 1.13 Troponin I 2 less than 0.012 -EKG tracing personally reviewed by me shows poor R-wave progression prominent T waves in V2 to V6 Chest x-ray film personally reviewed by me shows borderline cardiac medically. No obvious infiltrates Nuclear stress test showing reversibility Assessment: -Anterior chest wall pain. Now with a positive nuclear stress test. -Coronary artery disease with prior history of stent -Hyperlipidemia -Essential hypertension -Diabetes mellitus type 2 -Bilateral chronic lower extremity venous insufficiency from history of varicose veins -Morbid obesity BMI 54.9 Plan: I saw the patient before the stress test results. Dr. Wang KARDEX CLERK from cardiology. Patient to go down for cardiac catheterization tomorrow. In the meantime continue current medication treatment plan.
[2018-09-11 16:43] LABS: Glucose,Whole Blood 270 mg/dL (75-99)
[2018-09-11 20:19] LABS: Glucose,Whole Blood 202 mg/dL (75-99)
[2018-09-11] MEDS: amLODIPine 10 MG TAB PO SCH (22:44)
[2018-09-11] MEDS: PRAVASTATIN SODIUM 40 MG TAB PO SCH (22:44)
[2018-09-12] MEDS: NITROGLYCERIN OINT 1 INCH/GM PACKET TOPICAL SCH (05:46)
[2018-09-12] MEDS: ASPIRIN 81 MG PO SCH (06:11)
[2018-09-12] MEDS: METOPROLOL SUCCINATE (ER) 25 MG TAB.ER.24H PO SCH (06:11)
[2018-09-12] MEDS: CLOPIDOGREL 75 MG TAB PO SCH (06:11)
[2018-09-12] MEDS: PANTOPRAZOLE 40 MG TABLET PO SCH (06:11)
[2018-09-12] MEDS: LISINOPRIL 20 MG TAB PO SCH (06:11)
[2018-09-12 06:40] LABS: Glucose,Whole Blood 132 mg/dL (75-99)
[2018-09-12 07:48] LABS: Basophils # (A) 0.1 k/uL (0-0.2); Basophils % (A) 1 %; Eosinophils # (A) 0.2 k/uL (0-0.7); Eosinophils % (A) 2 %; HCT 44.8 % (34.0-46.0); HGB 14.1 gm/dL (11.4-16.0); Lymphocytes # (A) 1.3 k/uL (1.0-4.8); Lymphocytes % (A) 16 %; MCH 28.7 pg (25.0-35.0); MCHC 31.5 g/dL (31.0-37.0); MCV 91.1 fL (80.0-100.0); Mean Platelet Volume 8.8; Monocytes # (A) 0.5 k/uL (0-1.0); Monocytes % (A) 6 %; Neutrophils # (A) 6.3 k/uL (1.3-7.7); Neutrophils % (A) 74 %; Platelet Count 192 k/uL (150-450); RBC 4.92 m/uL (3.80-5.40); RDW 13.4 % (11.5-15.5); WBC 8.6 k/uL (3.8-10.6)
[2018-09-12 08:09] LABS: Calcium 9.2 mg/dL (8.4-10.2); Potassium 4.4 mmol/L (3.5-5.1)
[2018-09-12] MEDS: INSULN ASP PRT/INSULIN ASPART 100 UNIT/ML 10 ML VIAL SQ SCH ×2 (09:34→18:06)
[2018-09-12] MEDS ORDERED: LIDOCAINE 1% INJ 10MG/ML (20 ML MDV) ONE (09:48)
[2018-09-12] MEDS ORDERED: fentaNYL (PF) 50 MCG/ML 2 ML AMP ONE (09:48)
[2018-09-12] MEDS ORDERED: IV FLUID CONTINUATION 400 ML IV ONE (09:53)
[2018-09-12] MEDS ORDERED: MIDAZOLAM (PF) 2 MG/2 ML VIAL IV ONE (10:20)
[2018-09-12] MEDS ORDERED: fentaNYL (PF) 50 MCG/ML 2 ML AMP IV ONE (10:21)
[2018-09-12] MEDS ORDERED: LIDOCAINE 1% INJ 10MG/ML (20 ML MDV) SQ ONE (10:22)
--- NOTE | 2018-09-12 10:27 | PN ---
PROGRESS NOTE Mrs. Sosa is in sinus rhythm, doing well, has no further chest pain this morning. Stress test revealed inferolateral reversible defect. She is scheduled for a cardiac cath by Dr. Krause today. She understands the rationale, risks, benefits, options and wishes to proceed. Vitals are stable. No JVD. Neck is short and thick. S1, S2 heard normally but distantly. Lungs are clear. Abdomen and lower extremity exam is unchanged. She does have lower extremity edema with chronic changes. Cardiac cath scheduled for today and possible intervention if indicated. MMODL / IJN: [id number] /
[2018-09-12] MEDS ORDERED: BIVALIRUDIN BOLUS 250 MG/50 ML IV ONE (10:54)
[2018-09-12] MEDS ORDERED: BIVALIRUDIN 250 MG in SODIUM CHLORIDE 0.9% 50 ML IV ONE ×2 (10:54→11:14)
--- NOTE | 2018-09-12 11:06 | CC ---
CARDIAC CATHETERIZATION REPORT INDICATION: Chest pain with unstable angina with abnormal stress test. PROCEDURE NOTE: After obtaining informed consent, left heart catheterization and coronary angiogram are performed via the right femoral artery using standard Yamini catheters. The patient tolerated the procedure well without any obvious immediate complication. Patient received moderate conscious sedation. Total sedation time was 15 minutes. FINDINGS: 1. HEMODYNAMICS: Left ventricular end-diastolic pressure is 24 to 26 mm. There is no significant gradient across the aortic valve. 2. LEFT VENTRICULOGRAM: Left ventriculogram is not performed. 3. ANGIOGRAPHIC DATA: Left main coronary artery appears calcified but is free of significant stenosis. Divides into left anterior descending coronary artery and circumflex coronary artery. Circumflex coronary artery gives off a large caliber OM branch that shows moderate atherosclerotic plaque in its proximal part. LAD has been previously stented. The stent extends from proximal all the way to mid LAD. There is mild to moderate nonobstructive disease involving the stented segment and the ostial portion of the diagonal branch. Right coronary artery is a large dominant vessel that was previously stented and the stent extends from proximal all the way to the distal RCA. There are some collaterals going to the distal RCA to the LAD. Mid RCA shows a focal area of 99% stenosis. CONCLUSION: A 99% stenosis involving mid RCA. PLAN: Patient will undergo angioplasty and stent placement of the same. MMODL / IJN: [id number] /
[2018-09-12] MEDS ORDERED: IOPAMIDOL-370 125ML BTL INJ ONE (11:17)
[2018-09-12] MEDS ORDERED: NITROGLYCERIN 1000MCG/10ML SYRINGE INTRACORON ONE (11:33)
[2018-09-12] MEDS ORDERED: IOPAMIDOL-370 100ML BTL INJ ONE (11:50)
[2018-09-12] MEDS ORDERED: NITROGLYCERIN SL TABS 0.4 MG TAB SUBLINGUAL PRN (11:57)
[2018-09-12] MEDS ORDERED: RX INFO: IV CONTRAST WAS GIVEN 1 EACH MISC MISCELLANE PRN (11:57)
[2018-09-12] MEDS ORDERED: ZOLPIDEM 5 MG TAB PO PRN (11:57)
[2018-09-12] MEDS ORDERED: MAG HYDROX/AL HYDROX/SIMETH 30 ML CUP PO PRN (11:57)
[2018-09-12] MEDS ORDERED: ATROPINE SULFATE 0.1 MG/ML 10ML SYRINGE IV PRN (11:57)
[2018-09-12] MEDS ORDERED: SODIUM CHLORIDE 0.9% 1,000 ML IV SCH (12:00)
--- NOTE | 2018-09-12 12:36 | P.PN ---
Progress Note - Text Progress Note Date: 09/12/18 Chief Complaint: Chest pain Interval history: This is a pleasant 73-year-old patient of Dr. Miller. Chronic stable medical conditions include coronary artery disease with a RCA stent in June of this year, and prior stents., Hyperlipidemia, hypertension, diabetes mellitus type 2, chronic bilateral lower extremity venous insufficiency from chronic varicose veins. Patient presents with 2 days of anterior chest wall chest pain. Patient had a positive nuclear stress test. Cardiac catheterization this morning showed RCA 99% lesion. Had a stent placed. Today-status post coronary intervention with a stent to the RCA. Laying in bed. No chest pain or shortness of breath. Earlier today before the procedure patient had more chest pain. More comfortable now. Review of systems: Was done for constitutional, cardiovascular, GI, pulmonary. relevant finding as above Active Medications Al Hydroxide/Mg Hydroxide (Maalox) 30 ml PO Q4HR PRN PRN Reason: Heartburn Alprazolam (Xanax) 0.25 mg PO Q6HR PRN PRN Reason: Mild Anxiety Alprazolam (Xanax) 0.5 mg PO Q6HR PRN PRN Reason: Moderate Anxiety Last Admin: 09/12/18 09:50 Dose: 0.5 mg Documented by: Aminophylline (Aminophylline) 100 mg IV ONCE PRN PRN Reason: Patient Response Amlodipine Besylate (Norvasc) 10 mg PO HS [facility] Last Admin: 09/11/18 22:44 Dose: 10 mg Documented by: Aspirin (Aspirin) 81 mg PO DAILY [facility] Last Admin: 09/12/18 06:11 Dose: 81 mg Documented by: Atorvastatin Calcium (Lipitor) 40 mg PO DAILY [facility] Atropine Sulfate (Atropine) 0.5 mg IV ONCE PRN PRN Reason: Symptomatic Bradycardia Caffeine Citrate (Cafcit Inj) 60 mg IV ONCE PRN PRN Reason: Patient Response Clopidogrel Bisulfate (Plavix) 75 mg PO DAILY [facility] Last Admin: 09/12/18 06:11 Dose: 75 mg Documented by: Sodium Chloride (Saline 0.9%) 1,000 mls @ 75 mls/hr IV .[id number] [facility] Last Admin: 09/11/18 22:44 Dose: 75 mls/hr Documented by: Sodium Chloride (Saline 0.9%) 1,000 mls @ 100 mls/hr IV .Q10H [facility] Stop: 09/12/18 21:59 Insulin Aspart (Novolog Mix 70-30 Vial) 55 unit SQ AC-BID [facility] Last Admin: 09/12/18 09:34 Dose: Not Given Documented by: Isosorbide Mononitrate (Imdur) 30 mg PO DAILY [facility] Lisinopril (Zestril) 40 mg PO DAILY [facility] Magnesium Hydroxide (Milk Of Magnesia) 1,200 mg PO QID PRN PRN Reason: Indigestion Last Admin: 09/11/18 15:40 Dose: 1,200 mg Documented by: Metoprolol Succinate (Toprol Xl) 25 mg PO DAILY [facility] Last Admin: 09/12/18 06:11 Dose: 25 mg Documented by: Miscellaneous Information (Rx Info: Iv Contrast Was Given) 1 each MISCELLANE DAILY PRN PRN Reason: Per Protocol Stop: 09/14/18 11:57 Nitroglycerin (Nitrostat) 0.4 mg SUBLINGUAL Q5M PRN PRN Reason: Chest Pain Pantoprazole Sodium (Protonix) 40 mg PO AC-BRKFST [facility] Last Admin: 09/12/18 06:11 Dose: 40 mg Documented by: Sodium Chloride (Saline Flush) 10 ml IV BID [facility] Last Admin: 09/11/18 23:05 Dose: Not Given Documented by: Zolpidem Tartrate (Ambien) 5 mg PO HS PRN PRN Reason: Insomnia Physical examination: VITAL SIGNS: 97.8, 68, 18, 118/73, 97% room air GENERAL: Laying in bed, comfortable. EYES: Pupils equal. Conjunctiva normal. HEENT: External appearance of nose and ears normal, oral cavity grossly normal. NECK: JVD not raised; masses not palpable. HEART: First and second heart sounds are normal; edema present. LUNGS: Respiratory rate normal; clear to auscultation. ABDOMEN: Soft, nontender, liver spleen not palpable, no masses palpable. PSYCH: Alert and oriented x3; mood and affect normal. EXTREMITY: Swelling of bilateral lower extremity, with some pitting edema Investigations, reviewed in the clinical context: White count 8.6 hemoglobin 40.1 creatinine 1 Previous tests: Troponin I 2 less than 0.012 -EKG tracing personally reviewed by me shows poor R-wave progression prominent T waves in V2 to V6 Chest x-ray film personally reviewed by me shows borderline cardiac medically. No obvious infiltrates Nuclear stress test showing reversibility Assessment: -Unstable angina on presentation with positive nuclear stress test -Coronary intervention with a RCA 99% lesion now with a stent. -Coronary artery disease with prior history of stent -Hyperlipidemia -Essential hypertension -Diabetes mellitus type 2 -Bilateral chronic lower extremity venous insufficiency from history of varicose veins -Morbid obesity BMI 54.9 Plan: Patient is an aspirin Plavix. No chest pain. Laying in bed. Care was discussed with the patient. Follow with cardiology.
--- NOTE | 2018-09-12 12:47 | CC ---
CARDIAC CATHETERIZATION REPORT Mrs. Sosa is a 73-year-old female with known history of coronary artery disease, status post multiple percutaneous revascularization, history of recent percutaneous revascularization of the RCA in June of this year, who presented with symptoms of chest pain, had abnormal stress test, underwent cardiac catheterization by Dr. Krause and was found to have significant in-stent restenoses in view of that, recommendation was made regarding angioplasty the procedures risks and complication were discussed with the patient who is in full understanding and agreement. PROCEDURE: A 6-Yoruba FR4 guiding catheter introduced into the system after cannulating the right coronary ostium. A 0.014 balanced medium weight J-wire was advanced across the lesion, positioned distally. Following that, a 3.0 x 12 mm NC Trek balloon was advanced and one inflation at 16 atmospheres was done. Following that, the balloon was removed and subsequently a 3.5 x 12 mm NC Trek balloon was advanced and one inflation at 14 atmospheres was done. Following that, the balloon was removed and attempt to advance an IVUS catheter were unsuccessful because of the severe calcification in proximity. That catheter was removed and another 0.014 balanced medium weight J-wire was advanced and positioned next to the first one in a francisco javier fashion. Attempt to advance the IVUS catheter were unsuccessful in spite of the double wire. At that point, that catheter was removed and a 3.75 x 12 mm NC Trek balloon was advanced and one inflation at 14 atmospheres were done. Following that, the balloon and the guidewire were withdrawn back in the guiding catheter. Images were obtained and repeated. Those images reveal stable successful stenting. At that point, the guiding catheter, the balloon and guidewire were removed. The sheath was removed, hemostasis was obtained with deployment of an Angio-Seal. There was no immediate complication. Patient is returned to her room in stable condition. Of note, the patient received Angiomax per protocol as well as continuing on clopidogrel. She has chest discomfort and EKG changes with the inflation that resolved at the end of the procedure. RESULT: Successful angioplasty of the mid right coronary artery and an in-stent restenosis in heavily calcified vessel with reduction of stenosis from 95% to less than 5%. RECOMMENDATION: Patient will be continued on aspirin, Plavix, beta darian, and a statin. The importance of dual antiplatelet treatment were discussed with the patient. I am hopeful that the lesion is stabilized. I avoided stenting because of the recent stent and the prior stenting was done on the same segment in 2010. Depending on her progress, further recommendation will be made. Those findings and recommendation were discussed with the patient and her family who are in full understanding and agreement. DURATION OF PROCEDURE: 51 minutes. MONE / LITA: [id number] /
[2018-09-12 14:31] VITALS: BMI 54.8
[2018-09-12] MEDS: SODIUM CHLORIDE 0.9% 1,000 ML IV SCH (15:53)
[2018-09-12 16:44] LABS: Glucose,Whole Blood 164 mg/dL (75-99)
[2018-09-12] MEDS: ISOSORBIDE MONONITRATE ER 30 MG TAB.ER.24H PO SCH (17:53)
[2018-09-12 20:29] LABS: Glucose,Whole Blood 203 mg/dL (75-99)
[2018-09-12] MEDS: amLODIPine 10 MG TAB PO SCH (21:56)
[2018-09-12 23:05] VITALS: RESP 18
[2018-09-13] MEDS: SODIUM CHLORIDE 0.9% 1,000 ML IV SCH ×2 (00:46→12:37)
[2018-09-13 06:39] LABS: Glucose,Whole Blood 140 mg/dL (75-99)
[2018-09-13 06:40] LABS: Calcium 8.7 mg/dL (8.4-10.2); Potassium 4.4 mmol/L (3.5-5.1)
[2018-09-13] MEDS: INSULN ASP PRT/INSULIN ASPART 100 UNIT/ML 10 ML VIAL SQ SCH (07:09)
[2018-09-13] MEDS: PANTOPRAZOLE 40 MG TABLET PO SCH (07:11)
--- NOTE | 2018-09-13 08:09 | PN ---
PROGRESS NOTE A 73-year-old lady that is admitted to hospital with unstable angina and underwent a stress test that was abnormal. Underwent cardiac catheterization that revealed critical stenosis involving mid RCA for which she underwent balloon angioplasty. This morning she is doing well and is free of symptoms. She is on aspirin, Plavix, Pravachol, Toprol XL and sublingual nitroglycerin p.r.n. basis, which is going to continue on discharge. An EKG today does not reveal ischemic changes. LABS: Labs show that the creatinine is 1.1, potassium is 4.4. PHYSICAL EXAMINATION: On exam, she is comfortable at rest. Vital signs are stable. There is no jugular venous distention. Carotid upstroke is normal. There is no bruit. Chest exam reveals good air entry bilaterally. Heart exam reveals first and second heart sounds. No gallop. ABDOMEN: Soft. Examination of extremities did not reveal any edema. Peripheral pulses are felt. Groin is free of bleeding, bruit, hematoma. ASSESSMENT: Coronary artery disease, status post angioplasty of mid RCA. The patient will continue with current medications. Stable for discharge. Follow up with me in the office in a week. MMODL / IJN: [id number] /
[2018-09-13] MEDS: CLOPIDOGREL 75 MG TAB PO SCH (08:57)
[2018-09-13] MEDS: METOPROLOL SUCCINATE (ER) 25 MG TAB.ER.24H PO SCH (08:57)
[2018-09-13] MEDS: ASPIRIN 81 MG PO SCH (08:57)
[2018-09-13] MEDS: ISOSORBIDE MONONITRATE ER 30 MG TAB.ER.24H PO SCH (08:57)
[2018-09-13] MEDS ORDERED: LISINOPRIL 20 MG TAB PO SCH (09:00)
[2018-09-13] MEDS ORDERED: ATORVASTATIN 40 MG TAB PO SCH (09:00)
[2018-09-13 11:59] LABS: Glucose,Whole Blood 69 mg/dL (75-99)
[2018-09-13 12:16] LABS: Glucose,Whole Blood 68 mg/dL (75-99)
[2018-09-13 12:32] LABS: Glucose,Whole Blood 83 mg/dL (75-99)
[2018-09-13 12:52] VITALS: BP 119/55; PULSE 85; TEMP 97.6
--- NOTE | 2018-09-14 16:54 | P.DS ---
Providers Date of admission: 09/11/18 16:08 Expected date of discharge: 09/14/18 Attending physician: Dylan Moffett Consults: 09/10/18 14:55 Consult Physician Urgent Consulting Provider: Lázaro Gan Consult Reason/Comments: cp Do you want consulting provider notified?: Yes 09/12/18 11:57 Consult Physician Routine Consulting Provider: [facility] Consult Reason/Comments: Post Interventional patient Do you want consulting provider notified?: Already Contacted Primary care physician: Swapnil Miller [facility] Course: Hospital course: This is a pleasant 73-year-old patient of Dr. Miller. Chronic stable medical conditions include coronary artery disease with a RCA stent in June of this year, and prior stents., Hyperlipidemia, hypertension, diabetes mellitus type 2, chronic bilateral lower extremity venous insufficiency from chronic varicose veins. Patient presents with 2 days of anterior chest wall chest pain. Patient had a positive nuclear stress test. Cardiac catheterization this morning showed RCA 99% lesion. Had a stent placed. Today-Up and about. No further cardiac symptoms. BY cardiology to be discharged. Consultation: Dr. Emmanuel Krause from cardiology Dr. JUAN CARLOS Foley from interventional cardiology Physical examination: VITAL SIGNS: 97.6, 85, 18, 119 since 55, 95% room air GENERAL: Sitting up, comfortable. EYES: Pupils equal. Conjunctiva normal. HEENT: External appearance of nose and ears normal, oral cavity grossly normal. NECK: JVD not raised; masses not palpable. HEART: First and second heart sounds are normal; edema present. LUNGS: Respiratory rate normal; clear to auscultation. ABDOMEN: Soft, nontender, liver spleen not palpable, no masses palpable. EXTREMITY: Swelling of bilateral lower extremity, with some pitting edema Investigations, reviewed in the clinical context: Creatinine 1.14 Previous tests: Troponin I 2 less than 0.012 -EKG tracing personally reviewed by me shows poor R-wave progression prominent T waves in V2 to V6 Chest x-ray film personally reviewed by me shows borderline cardiac medically. No obvious infiltrates Nuclear stress test showing reversibility Discharge diagnoses: -Unstable angina on presentation with positive nuclear stress test -Coronary intervention with a RCA 99% lesion now with a stent. -Coronary artery disease with prior history of stent -Hyperlipidemia -Essential hypertension -Diabetes mellitus type 2 -Bilateral chronic lower extremity venous insufficiency from history of varicose veins -Morbid obesity BMI 54.9 Disposition: Home Patient Condition at Discharge: Stable Plan - Discharge Summary Discharge Rx Participant: No New Discharge Prescriptions: New Isosorbide Mononitrate ER [Imdur] 30 mg PO DAILY #30 tab.er.24h Atorvastatin [Lipitor] 40 mg PO DAILY #30 tab Continue Aspirin EC [Ecotrin Low Dose] 81 mg PO DAILY amLODIPine BESYLATE [Norvasc] 10 mg PO HS Metoprolol Succinate (ER) [Toprol XL] 25 mg PO DAILY Enalapril [Vasotec] 20 mg PO BID Clopidogrel Bisulfate [Plavix] 75 mg PO DAILY Insuln Asp Prt/Insulin Aspart [NovoLOG MIX 70-30 VIAL] 55 units SQ BID Nitroglycerin Sl Tabs [Nitrostat] 0.4 mg SUBLINGUAL Q5M PRN #25 tab PRN Reason: Chest Pain Discontinued Pravastatin Sodium [Pravachol] 40 mg PO HS Discharge Medication List Aspirin EC [Ecotrin Low Dose] 81 mg PO DAILY 06/20/18 [History] Clopidogrel Bisulfate [Plavix] 75 mg PO DAILY 06/20/18 [History] Enalapril [Vasotec] 20 mg PO BID 06/20/18 [History] Insuln Asp Prt/Insulin Aspart [NovoLOG MIX 70-30 VIAL] 55 units SQ BID 06/20/18 [History] Metoprolol Succinate (ER) [Toprol XL] 25 mg PO DAILY 06/20/18 [History] amLODIPine BESYLATE [Norvasc] 10 mg PO HS 06/20/18 [History] Nitroglycerin Sl Tabs [Nitrostat] 0.4 mg SUBLINGUAL Q5M PRN #25 tab 06/22/18 [Rx] Atorvastatin [Lipitor] 40 mg PO DAILY #30 tab 09/13/18 [Rx] Isosorbide Mononitrate ER [Imdur] 30 mg PO DAILY #30 tab.er.24h 09/13/18 [Rx] Follow up Appointment(s)/Referral(s): Swapnil Miller MD [Primary Care Provider] - 09/17/18 11:30 am Angel Krause MD [STAFF PHYSICIAN] - 09/18/18 4:00 pm Patient Instructions/Handouts: *Surgery [facility] - After Heart Catheterization - Assistant Foreman Instructions, Heart Healthy Diet (DC) Activity/Diet/Wound Care/Special Instructions: 1. Support your puncture site by applying firm, steady pressure whenever you cough, laugh, sneeze or bear down to have a bowel movement (2-day restriction). 2. Watch for any excessive bruising, active bleeding, a firm knot forming under your skin, extreme tenderness and signs of infection (redness, swelling, fever). 3. Shower daily, do not soak puncture in a tub bath, jacuzzi, pool, arora etc. for 1 week. This is to prevent risk of infection. 4. Drink plenty of fluids the day of and day after your procedure to flush contrast dye out of your kidneys. 5. Take all medications as directed. Never stop any new medication without your physicians OK. 6. No driving for 2 days after procedure. 7. 10- pound weight lifting restriction for 1 week. 8. Low sodium/low fat diet. 9. Activity limited until follow up appointment with your prospecting observer. In case of any problems, please call [facility] [place] @ [phone]. Discharge Disposition: HOME SELF-CARE
== END 2018-09-13 14:40 | disposition home or self-care (01) | DRG 251 ==
LOC: EC 12:31 → 1SOBS 14:55 → OBSVTOIN 09-11 16:08 → 3SCARD 09-12 11:51
PROVIDERS: ADMIT Hospitalist; ATTEND Hospitalist
PROC: 02703ZZ Dilation of Coronary Artery, One Artery, Percutaneous Approach (ICD-10-PCS; principal; 2018-09-11)
PROC: 4A023N7 Measurement of Cardiac Sampling and Pressure, Left Heart, Percutaneous Approach (ICD-10-PCS; 2018-09-11)
PROC: B2111ZZ Fluoroscopy of Multiple Coronary Arteries using Low Osmolar Contrast (ICD-10-PCS; 2018-09-11)
DX: T82.855A Stenosis of coronary artery stent, initial encounter (principal); I25.110 Atherosclerotic heart disease of native coronary artery with unstable angina pectoris; Z68.43 Body mass index [BMI] 50.0-59.9, adult; I25.84 Coronary atherosclerosis due to calcified coronary lesion; E11.9 Type 2 diabetes mellitus without complications; E66.01 Morbid (severe) obesity due to excess calories; E78.5 Hyperlipidemia, unspecified; I10 Essential (primary) hypertension; I87.2 Venous insufficiency (chronic) (peripheral); K59.00 Constipation, unspecified; I83.893 Varicose veins of bilateral lower extremities with other complications; K21.9 Gastro-esophageal reflux disease without esophagitis; Y83.1 Surgical operation with implant of artificial internal device as the cause of abnormal reaction of the patient, or of later complication, without mention of misadventure at the time of the procedure; J06.9 Acute upper respiratory infection, unspecified; Z96.651 Presence of right artificial knee joint; Z79.02 Long term (current) use of antithrombotics/antiplatelets; Z79.82 Long term (current) use of aspirin; Z79.4 Long term (current) use of insulin; Z79.899 Other long term (current) drug therapy; I25.2 Old myocardial infarction; Z82.3 Family history of stroke; Z82.49 Family history of ischemic heart disease and other diseases of the circulatory system; Z90.710 Acquired absence of both cervix and uterus
CPT/HCPCS: 36415; 71046; 78452; 80048; 80053; 80061; 83735; 83880; 84484; 85025; 85610; 85730; 93005; 93017; 93306; 93458; 99285

== ENCOUNTER → 2018-12-09 | Outpatient (CLI) | payer MEDICARE ==
[2018-12-09 11:00] LABS: Basophils # (A) 0.1 k/uL (0-0.2); Basophils % (A) 1 %; Eosinophils # (A) 0.1 k/uL (0-0.7); Eosinophils % (A) 1 %; HCT 45.6 % (34.0-46.0); HGB 14.8 gm/dL (11.4-16.0); Lymphocytes # (A) 1.5 k/uL (1.0-4.8); Lymphocytes % (A) 19 %; MCH 29.7 pg (25.0-35.0); MCHC 32.4 g/dL (31.0-37.0); MCV 91.6 fL (80.0-100.0); Mean Platelet Volume 7.9; Monocytes # (A) 0.4 k/uL (0-1.0); Monocytes % (A) 5 %; Neutrophils # (A) 5.9 k/uL (1.3-7.7); Neutrophils % (A) 73 %; Platelet Count 178 k/uL (150-450); RBC 4.98 m/uL (3.80-5.40); RDW 13.2 % (11.5-15.5); WBC 8.1 k/uL (3.8-10.6)
[2018-12-09 16:52] LABS: African American GFR (CKD) 65.2 (60.0-200.0); Albumin 4.1 g/dL (3.80-4.90); Albumin/Globulin Ratio 1.86 (1.60-3.17); Anion Gap 9.7 mmol/L (4.00-12.00); Calcium 9.3 mg/dL (8.7-10.3); Carbon Dioxide 28.3 mmol/L (21.6-31.8); Chol/HDL Ratio 2.96; Globulin 2.2 g/dL (1.6-3.3); LDL Cholesterol,Calculated 77.8 mg/dL (0.0-131.0); Total Bilirubin 0.6 mg/dL (0.2-1.2); Total Protein 6.3 g/dL (6.2-8.2); VLDL Calculation 20.2 mg/dL (5.00-40.00)
[2018-12-09 19:26] LABS: Hemoglobin A1C 6.7 % (4.0-6.0)
== END | disposition home or self-care (01) ==
LOC: LABWHC1 10:26
PROVIDERS: ATTEND Nurse Practitioner Family
DX: E78.00 Pure hypercholesterolemia, unspecified (principal); E11.22 Type 2 diabetes mellitus with diabetic chronic kidney disease; N18.3 Chronic kidney disease, stage 3 (moderate); E55.9 Vitamin D deficiency, unspecified
CPT/HCPCS: 36415; 80053; 80061; 82306; 83036; 85025

== ENCOUNTER → 2019-04-11 | Outpatient (CLI) | payer MEDICARE ==
[2019-04-11 18:24] LABS: African American GFR (CKD) 52.3 (60.0-200.0); Albumin/Globulin Ratio 1.74 (1.60-3.17); Anion Gap 9.7 mmol/L (4.00-12.00); BUN/Creat Ratio 17.5 Ratio (12.00-20.00); Calcium 9.4 mg/dL (8.7-10.3); Carbon Dioxide 28.3 mmol/L (21.6-31.8); Globulin 2.3 g/dL (1.6-3.3); Non-African American GFR(CKD) 45.1 (60.0-200.0); Potassium 4.9 mmol/L (3.5-5.5); Total Bilirubin 0.8 mg/dL (0.2-1.2); Total Protein 6.3 g/dL (6.2-8.2)
[2019-04-11 20:16] LABS: Hemoglobin A1C 7.1 % (4.0-6.0)
== END | disposition home or self-care (01) ==
LOC: LABWHC1 11:53
PROVIDERS: ATTEND Nurse Practitioner Family
DX: E11.22 Type 2 diabetes mellitus with diabetic chronic kidney disease (principal)
CPT/HCPCS: 36415; 80053; 83036

== ENCOUNTER → 2021-06-13 | Outpatient (CLI) | payer MEDICARE | END | disposition home or self-care (01) | LOC: LABWHC1 12:25 | PROVIDERS: ATTEND Nurse Practitioner Family | DX: E87.5 Hyperkalemia (principal) | CPT/HCPCS: 36415; 84132 ==

== ENCOUNTER → 2022-03-16 | Outpatient (CLI) | payer MEDICARE ==
[2022-03-16 18:49] LABS: ALT 16 U/L (8-44); AST 19 U/L (13-35); African American GFR (CKD) 46.5 (60.0-200.0); Albumin 3.9 g/dL (3.8-4.9); Albumin/Globulin Ratio 1.48 (1.60-3.17); Alkaline Phosphatase 100 U/L (41-126); BUN/Creat Ratio 12.92 Ratio (12.00-20.00); Blood Urea Nitrogen 16.8 mg/dL (9.0-27.0); Calcium 9.7 mg/dL (8.7-10.3); Carbon Dioxide 26.3 mmol/L (20.0-27.5); Chloride 105 mmol/L (96-109); Globulin 2.6 g/dL (1.6-3.3); Glucose 125 mg/dL (70-110); LDL Cholesterol,Calculated 95.9 mg/dL (0.0-131.0); Non-African American GFR(CKD) 40.1 (60.0-200.0); Potassium 4.4 mmol/L (3.5-5.5); Sodium 144 mmol/L (135-145); Total Protein 6.6 g/dL (6.2-8.2); VLDL Calculation 18.76 mg/dL (5.00-40.00)
[2022-03-16 19:02] LABS: Basophils # (A) 0.09 X 10*3/uL (0.00-0.10); Basophils % (A) 1.1 %; Eosinophils # (A) 0.19 X 10*3/uL (0.04-0.35); Eosinophils % (A) 2.3 %; HCT 48.3 % (37.2-46.3); HGB 15.1 g/dL (12.0-15.0); Immature Grans, Automated 0.2 %; Lymphocytes # (A) 1.81 X 10*3/uL (0.90-5.00); Lymphocytes % (A) 21.7 %; MCH 29.8 pg (27.0-32.0); MCHC 31.3 g/dL (32.0-37.0); MCV 95.5 fL (80.0-97.0); Mean Platelet Volume 13.4 fL (9.5-12.2); Monocytes # (A) 0.53 X 10*3/uL (0.20-1.00); Monocytes % (A) 6.4 %; NRBC Per 100 WBC 0 /100 WBCS (0.0-0.0); Neutrophils % (A) 68.3 %; Platelet Count 181 X 10*3/uL (140-440); RBC 5.06 X 10*6/uL (4.10-5.20); WBC 8.34 X 10*3/uL (4.50-10.00)
== END | disposition home or self-care (01) ==
LOC: LABWHC1 11:51
PROVIDERS: ATTEND Nurse Practitioner Family
DX: I12.9 Hypertensive chronic kidney disease with stage 1 through stage 4 chronic kidney disease, or unspecified chronic kidney disease (principal); E11.22 Type 2 diabetes mellitus with diabetic chronic kidney disease; L65.9 Nonscarring hair loss, unspecified; N18.9 Chronic kidney disease, unspecified; R06.01 Orthopnea; R06.02 Shortness of breath
CPT/HCPCS: 36415; 80053; 80061; 83036; 84443; 85025; 85379

== ENCOUNTER → 2022-03-16 | Outpatient (CLI) | payer MEDICARE ==
--- NOTE | 2022-03-16 12:49 | XR ---
EXAMINATION TYPE: XR chest 2V DATE OF EXAM: 03/16/2022 COMPARISON: 09/10/2018 TECHNIQUE: PA and lateral views submitted. HISTORY: Shortness of breath FINDINGS: The lungs are clear and there is no pneumothorax, pleural effusion, or focal pneumonia. Osseous stru ctures demonstrate hypertrophic and degenerative changes of the spine. Heart is prominent. There is s ome prominence of the hilum bilaterally. Atherosclerotic change aorta and coarse interstitial. IMPRESSION: 1. Cardiomegaly correlate for chronic interstitial lung disease. Superimposed mild venous congestion or interstitial pneumonitis suspected. 2. Prominent moira greater on the right could reflect enlarged pulmonary arteries and pulmonary arteri al hypertension. CT of the chest is recommended to exclude adenopathy on the right..
== END | disposition home or self-care (01) ==
LOC: RADXRMAIN 12:12
PROVIDERS: ATTEND Nurse Practitioner Family
DX: I27.0 Primary pulmonary hypertension (principal); R06.02 Shortness of breath; R06.01 Orthopnea; J84.10 Pulmonary fibrosis, unspecified; I51.7 Cardiomegaly
CPT/HCPCS: 71046

== ENCOUNTER 2022-05-25 11:23 | Inpatient (IN) | payer MEDICARE ==
[2022-05-25] MEDS ORDERED: ASPIRIN 81 MG PO STA (11:55)
[2022-05-25] MEDS ORDERED: HEPARIN SODIUM 1,000 UN/ML (10ML VL) IV PRN (11:57)
[2022-05-25] MEDS ORDERED: HEPARIN SODIUM 1,000 UN/ML (10ML VL) IV ONE (11:57)
[2022-05-25] MEDS ORDERED: HEPARIN SOD,PORK IN 0.45% NACL 25,000 UNIT in 0.45% NACL 1 250ML.BAG IV SCH (12:00)
--- NOTE | 2022-05-25 12:04 | ED ---
General Adult HPI - General Chief complaint: Chest Pain Stated complaint: chest pain Time Seen by Provider: 05/25/22 11:36 Source: patient Mode of arrival: wheelchair Limitations: no limitations - History of Present Illness Initial comments: Dictation was produced using [employer] dictation software. please excuse any grammatical, word or spelling errors. Chief Complaint: 77-year-old female presents to the emergency department for severe chest pain History of Present Illness: Patient 77 year old female past medical history of coronary artery disease, myocardial infarction. 2019 she had a catheterization. She was found at a time to have myocardial infarction secondary to mid RCA thrombosis. Patient states that for the last months she's been having waxing and waning chest symptoms. States that study pressure to substernal area. Moderate to the back. Not rating to the extremities. Not associated with diaphoresis or nausea. Patient states she took 4 nitroglycerin. The first 3 nitroglycerin did not help her symptoms. The fourth ventricle sort she took right before coming to the ER states that it reduced her symptoms. Patient allegedly was supposed to have a outpatient stress test however because her symptoms were so severe today she decided come to the ER. Denies any shortness of breath. No lower extremity symptoms. She does not take anticoagulation medications. The ROS documented in this emergency department record has been reviewed and confirmed by me. Those systems with pertinent positive or negative responses have been documented in the HPI. All other systems are other negative and/or noncontributory. - Related Data Home Medications Medication Instructions Recorded Confirmed Clopidogrel Bisulfate [Plavix] 75 mg PO DAILY 06/20/18 05/25/22 Metoprolol Succinate (ER) [Toprol 25 mg PO DAILY 06/20/18 05/25/22 XL] amLODIPine BESYLATE [Norvasc] 10 mg PO DAILY 06/20/18 05/25/22 Insulin Lispro Protamin/Lispro 40 - 55 unit SQ BID 03/21/22 05/25/22 [humaLOG MIX 75-25 Kwikpen] Acetylcysteine [Nac] 600 mg PO DAILY 03/22/22 05/25/22 Ascorbic Acid [Vitamin C] 1,000 mg PO DAILY 03/22/22 05/25/22 Cyanocobalamin [Vitamin B-12] 500 mcg PO DAILY 03/22/22 05/25/22 Ergocalciferol [Vitamin D2 (1250 1,250 mcg PO SAMUELS 03/22/22 05/25/22 Mcg = 97019 Iu)] Magnesium Oxide [Magnesium] 500 mg PO DAILY 03/22/22 05/25/22 Zinc Gluconate [Zinc] 50 mg PO DAILY 03/22/22 05/25/22 Biotin 5 mg PO DAILY 05/25/22 05/25/22 Previous Rx's Medication Instructions Recorded Nitroglycerin Sl Tabs [Nitrostat] 0.4 mg SUBLINGUAL Q5M PRN #25 tab 06/22/18 Enalapril Maleate [Vasotec] 20 mg PO HS #0 03/22/22 Furosemide [Lasix] 40 mg PO DAILY #90 tablet 03/22/22 Isosorbide Mononitrate ER [Imdur] 30 mg PO DAILY #30 tab 03/22/22 Spironolactone [Aldactone] 12.5 mg PO DAILY #45 tablet 03/22/22 Allergies Allergy/AdvReac Type Severity Reaction Status Date / Time Penicillins Allergy Rash/Hives/ Verified 05/25/22 13:23 Blistering Review of Systems ROS Statement: Those systems with pertinent positive or pertinent negative responses have been documented in the HPI. ROS Other: All systems not noted in ROS Statement are negative. Past Medical History Past Medical History: Cancer, Diabetes Mellitus, Hyperlipidemia, Hypertension, Myocardial Infarction (VT) Additional Past Medical History / Comment(s): 6 stents placed and 2 heart a ttacks Last Myocardial Infarction Date:: 2009 History of Any Multi-Drug Resistant Organisms: None Reported Past Surgical History: Cholecystectomy, Heart Catheterization With Stent, Hysterectomy, Orthopedic Surgery Additional Past Surgical History / Comment(s): right knee replacement-2016. D&C x 2. History of cardiac stent placement x5. June 2018. last cardiac stent placement Past Psychological History: No Psychological Hx Reported Smoking Status: Never smoker Past Alcohol Use History: None Reported Past Drug Use History: None Reported - Past Family History Mother Family Medical History: Myocardial Infarction (VT) Father Family Medical History: CVA/TIA Brother(s) Family Medical History: Cancer, Coronary Artery Disease (CAD) Son(s) Family Medical History: No Reported History Daughter(s) Family Medical History: No Reported History General Exam - General Exam Comments Initial Comments: PHYSICAL EXAM: General Impression: Alert and oriented x3, acute distress secondary to chest pressure HEENT: Normocephalic atraumatic, extra-ocular movements intact, pupils equal and reactive to light bilaterally, mucous membranes moist. Cardiovascular: Heart regular rate and rhythm Chest: Able to complete full sentences, no retractions, no tachypnea Abdomen: abdomen soft, non-tender, non-distended, no organomegaly Musculoskeletal: Pulses present and equal in all extremities, bilaterally lower extremity lymphedema Motor: no focal deficits noted Neurological: CN II-XII grossly intact, no focal motor or sensory deficits noted Skin: Intact with no visualized rashes Psych: Normal affect and mood Limitations: no limitations Course Vital Signs 05/25/22 05/25/22 05/25/22 11:26 11:48 12:43 Temperature 98.0 F Pulse Rate 125 H 112 H 89 Respiratory 24 20 16 Rate Blood Pressure 141/77 144/81 O2 Sat by Pulse 98 94 L Oximetry 05/25/22 05/25/22 13:15 13:42 Temperature 98.2 F Pulse Rate 85 79 Respiratory 16 17 Rate Blood Pressure 136/78 131/75 O2 Sat by Pulse 94 L 95 Oximetry EKG Findings - EKG Comments: EKG Findings:: My EKG interpretation: Ventricular rate 119, sinus tachycardia,. 152, QRS 124. No ME prolongation, no QTC prolongation, mild ST changes in the lateral precordial leads different from comparison EKG. Compared to EKG from March on time 3 showing some nonspecific changes in the lateral precordial leads. Second EKG performed 30 minutes later shows no dynamic changes. Medical Decision Making - Medical Decision Making 12:05 PM: Case is discussed with cardiology. EKGs were reviewed with Dr. Foley. Dr. Foley did look at 2 EKGs performed today in comparison to EKG from March of this year. Clinical presentation concerning for unstable angina. Patient started on heparin. Dr. Foley in the ER at the bedside with patient at 12:04 PM. Was pt. sent in by a medical professional or institution (, PA, SPECIAL EDUCATION CASE MANAGER, urgent care, hospital, or prison...) When possible be specific @ -No Did you speak to anyone other than the patient for history (EMS, parent, family, police, friend...)? What history was obtained from this source @ - at the bedside also confirms what patient reports Did you review nursing and triage notes (agree or disagree)? Why? @ -I reviewed and agree with nursing and triage notes Were old charts reviewed (outside hosp., previous admission, EMS record, old EKG, old radiological studies, urgent care reports/EKG's, prison records)? Report findings @ -Prior cardiology notes reviewed showing the patient had an VT several years ago. There is no mention of coronary artery disease and other coronary vessels. Differential Diagnosis (chest pain, altered mental status, abdominal pain women, abdominal pain men, vaginal bleeding, musculoskeletal, weakness, fever, dyspnea, syncope, headache, dizziness, GI bleed, back pain, seizure, CVA, palpatations, mental health)? @ -Differential Chest Pain: Stable Angina, Unstable Angina, STEMI, NSTEMI Aortic Dissection, Pneumothorax, Musculoskeletal, Esophageal Spasm GERD, Cholecystitis, Pancreatitis, Zoster, this is not meant to be an all-inclusive list. EKG interpreted by me (3pts min.). @ -See above X-rays interpreted by me (1pt min.). @ -Pending CT interpreted by me (1pt min.). @ -None done U/S interpreted by me (1pt. min.). @ -None done What testing was considered but not performed or refused? (CT, X-rays, U/S, labs)? Why? @ -None What meds were considered but not given or refused? Why? @ -None Did you discuss the management of the patient with other professionals (professionals i.e. , PA, SPECIAL EDUCATION CASE MANAGER, lab, RT, psych nurse, elementary school social worker, internal communications intern, teacher, assurance officer, housing case manager)? Give summary @ -Is discussed in detail with Dr. Foley. He did evaluate the patient made recommendations. Plan the Patient tomorrow morning. Was smoking cessation discussed for >3mins.? @ -No Was critical care preformed (if so, how long)? @ -33 minutes Were there social determinants of health that impacted care today? How? (Homelessness, low income, unemployed, alcoholism, drug addiction, transportation, low edu. Level, literacy, decrease access to med. care, half-way, rehab)? @ -No Was there de-escalation of care discussed even if they declined (Discuss DNR or withdrawal of care, Hospice)? DNR status @ -No What co-morbidities impacted this encounter? (DM, HTN, Smoking, COPD, CAD, Cancer, CVA, ARF, Chemo, Hep., AIDS, mental health diagnosis, sleep apnea, morbid obesity)? @ -History of coronary artery disease Was patient admitted / discharged? Hospital course, mention meds given and r oute, prescriptions, significant lab abnormalities, going to OR and other pertinent info. @ -77-year-old female presents emergency department for acute coronary syndrome. Patient started on cardiac medications. Reevaluated at bedside at 1:51 PM with complete resolution of chest symptoms. CBC and coag panel is unremarkable. Troponin is elevated at 0.118. Plan for cardiac catheterization in 24 hours. Undiagnosed new problem with uncertain prognosis? @ -No Drug Therapy requiring intensive monitoring for toxicity (Heparin, Nitro, Insulin, Cardizem)? @ -No Were any procedures done? @ -No Diagnosis/symptom? Acute, or Chronic, or Acute on Chronic? Uncomplicated (without systemic symptoms) or Complicated (systemic symptoms)? @ -1. Acute coronary syndrome Side effects of treatment? @ -No Exacerbation, Progression, or Severe Exacerbation? @ -No Poses a threat to life or bodily function? How? (Chest pain, USA, VT, pneumonia, PE, COPD, DKA, ARF, appy, cholecystitis, CVA, Diverticulitis, Homicidal, Suicidal, threat to staff... and all critical care pts) @ -yes - Lab Data Result diagrams: 05/25/22 11:58 05/25/22 11:58 Lab Results 05/25/22 05/25/22 05/25/22 Range/Units 11:58 11:58 11:58 WBC 8.3 (3.8-10.6) k/uL RBC 4.78 (3.80-5.40) m/uL Hgb 14.5 (11.4-16.0) gm/dL Hct 43.8 (34.0-46.0) % MCV 91.5 (80.0-100.0) fL MCH 30.3 (25.0-35.0) pg MCHC 33.1 (31.0-37.0) g/dL RDW 13.3 (11.5-15.5) % Plt Count 172 (150-450) k/uL MPV 11.0 Neutrophils % 80 % Lymphocytes % 12 % Monocytes % 6 % Eosinophils % 1 % Basophils % 0 % Neutrophils # 6.6 (1.3-7.7) k/uL Lymphocytes # 1.0 (1.0-4.8) k/uL Monocytes # 0.5 (0-1.0) k/uL Eosinophils # 0.1 (0-0.7) k/uL Basophils # 0.0 (0-0.2) k/uL PT 10.2 (9.0-12.0) sec INR 1.0 (<1.2) APTT 24.1 (22.0-30.0) sec Sodium 137 (137-145) mmol/L Potassium 4.9 (3.5-5.1) mmol/L Chloride 103 (98-107) mmol/L Carbon Dioxide 28 (22-30) mmol/L Anion Gap 6 mmol/L BUN 23 H (7-17) mg/dL Creatinine 1.23 H (0.52-1.04) mg/dL Est GFR (CKD-EPI)AfAm 49 (>60 ml/min/1.73 sqM) Est GFR (CKD-EPI)NonAf 43 (>60 ml/min/1.73 sqM) Glucose 270 H (74-99) mg/dL Calcium 8.7 (8.4-10.2) mg/dL Magnesium 2.2 (1.6-2.3) mg/dL Total Bilirubin 0.9 (0.2-1.3) mg/dL AST 26 (14-36) U/L ALT 21 (4-34) U/L Alkaline Phosphatase 122 (38-126) U/L Troponin I (0.000-0.034) ng/mL Total Protein 6.4 (6.3-8.2) g/dL Albumin 3.5 (3.5-5.0) g/dL 05/25/22 Range/Units 11:58 WBC (3.8-10.6) k/uL RBC (3.80-5.40) m/uL Hgb (11.4-16.0) gm/dL Hct (34.0-46.0) % MCV (80.0-100.0) fL MCH (25.0-35.0) pg MCHC (31.0-37.0) g/dL RDW (11.5-15.5) % Plt Count (150-450) k/uL MPV Neutrophils % % Lymphocytes % % Monocytes % % Eosinophils % % Basophils % % Neutrophils # (1.3-7.7) k/uL Lymphocytes # (1.0-4.8) k/uL Monocytes # (0-1.0) k/uL Eosinophils # (0-0.7) k/uL Basophils # (0-0.2) k/uL PT (9.0-12.0) sec INR (<1.2) APTT (22.0-30.0) sec Sodium (137-145) mmol/L Potassium (3.5-5.1) mmol/L Chloride (98-107) mmol/L Carbon Dioxide (22-30) mmol/L Anion Gap mmol/L BUN (7-17) mg/dL Creatinine (0.52-1.04) mg/dL Est GFR (CKD-EPI)AfAm (>60 ml/min/1.73 sqM) Est GFR (CKD-EPI)NonAf (>60 ml/min/1.73 sqM) Glucose (74-99) mg/dL Calcium (8.4-10.2) mg/dL Magnesium (1.6-2.3) mg/dL Total Bilirubin (0.2-1.3) mg/dL AST (14-36) U/L ALT (4-34) U/L Alkaline Phosphatase (38-126) U/L Troponin I 0.118 H* (0.000-0.034) ng/mL Total Protein (6.3-8.2) g/dL Albumin (3.5-5.0) g/dL Disposition Clinical Impression: NSTEMI (non-ST elevated myocardial infarction) Disposition: ADMITTED IP TO THIS [facility] Condition: Serious Referrals: Swapnil Miller MD [Primary Care Provider] - 1-2 days Decision Time: 13:49
[2022-05-25] MEDS ORDERED: METOPROLOL TARTRATE 5 MG/5 ML VIAL IVP STA (12:09)
[2022-05-25] MEDS ORDERED: NITROGLYCERIN-D5W PMX 50 MG in DEXTROSE/WATER 1 250ML.BAG IV ONE (12:09)
[2022-05-25] MEDS ORDERED: HYDROmorphone 0.5 MG/0.5 ML SYRINGE IVP STA (12:09)
[2022-05-25 12:30] LABS: Basophils % (A) 0 %; Eosinophils # (A) 0.1 k/uL (0-0.7); Eosinophils % (A) 1 %; HCT 43.8 % (34.0-46.0); HGB 14.5 gm/dL (11.4-16.0); Lymphocytes % (A) 12 %; MCH 30.3 pg (25.0-35.0); MCHC 33.1 g/dL (31.0-37.0); MCV 91.5 fL (80.0-100.0); Monocytes # (A) 0.5 k/uL (0-1.0); Monocytes % (A) 6 %; Neutrophils # (A) 6.6 k/uL (1.3-7.7); Neutrophils % (A) 80 %; Platelet Count 172 k/uL (150-450); RBC 4.78 m/uL (3.80-5.40); RDW 13.3 % (11.5-15.5); WBC 8.3 k/uL (3.8-10.6)
[2022-05-25] MEDS ORDERED: ALPRAZolam 0.25 MG TAB PO PRN (12:36)
[2022-05-25] MEDS ORDERED: ALPRAZolam 0.5 MG TAB PO PRN (12:36)
[2022-05-25] MEDS ORDERED: NITROGLYCERIN SL TABS 0.4 MG TAB SUBLINGUAL PRN ×3 (12:36→15:02)
[2022-05-25 12:42] LABS: Albumin 3.5 g/dL (3.5-5.0); Calcium 8.7 mg/dL (8.4-10.2); Magnesium 2.2 mg/dL (1.6-2.3); Potassium 4.9 mmol/L (3.5-5.1); Total Bilirubin 0.9 mg/dL (0.2-1.3); Total Protein 6.4 g/dL (6.3-8.2)
[2022-05-25 12:43] LABS: Partial Thromboplastin Time 24.1 sec (22.0-30.0); Prothrombin Time 10.2 sec (9.0-12.0)
--- NOTE | 2022-05-25 14:11 | CONS ---
CONSULTATION HISTORY OF PRESENT ILLNESS: This is a 77-year-old obese lady with type 2 diabetes, hypertension, hyperlipidemia, and CAD, who underwent stenting of LAD in 2005, and also had multiple PTCA interventions of RCA starting in 2010 and June and September of 2018. 2019 was the most recent one. This was the restenotic mid RCA lesion that was stented. She was scheduled to have a stress test and echo in the office with Dr. Krause, but she came into the emergency room with complaints of having chest tightness and pressure and shortness of breath going on for the last 48 hours. She took sublingual nitroglycerin with inconsistent relief. She is doing well at that time, but she seems quite anxious. Blood pressure is elevated. Her chest pain seems atypical, and there is more anxiety. However, we cannot exclude angina given her history. I have initiated her on a nitroglycerin drip and heparin, gave her some beta-darian to lower the heart rate down. Following this, her pain was completely relieved, blood pressure was down to 140/80, heart rate in the 70s, and she is resting comfortably without symptoms. PAST MEDICAL HISTORY: 1. CAD with stenting of LAD in 2005, and in 2010 and 2018 and September, she had stenting of RCA. 2. Type 2 diabetes without chronic kidney disease. 3. Hypertension. 4. Hyperlipidemia. 5. History of degenerative joint disease. PHYSICAL EXAMINATION: VITAL SIGNS: Blood pressure is 140/80, pulse rate is about 78 per minute. HEENT: Unremarkable. Fundus was not examined by me. NECK: Supple. No JVD. Neck is short and thick. HEART: Reveals S1 and S2. Distant heart sounds. There is a short systolic murmur at the left sternal border and base. LUNGS: Reveal bilateral decent air entry. ABDOMEN: Distended and nontender. EXTREMITIES: Lower extremities reveal diminished but palpable pulses. No edema. CENTRAL NERVOUS SYSTEM: Grossly within normal limits. IMPRESSION: 1. Chest pain syndrome, probable unstable angina in a patient with known multivessel percutaneous coronary intervention. 2. Obesity. 3. Hypertension. 4. Hyperlipidemia. 5. Type 2 diabetes mellitus. RECOMMENDATIONS: I am recommending intravenous heparin, nitroglycerin drip, and cardiac catheterization tomorrow. If she has any further symptoms, we will consider catheterization today. Serial troponins, CMP, and CBC. Discussed my thoughts in detail with the patient and her and also talked to Dr. Krause, who will perform the cardiac catheterization at 07:30 if a slot is available. Thank you very much for the consult. MONE / LITA: [id number] /
--- NOTE | 2022-05-25 14:40 | XR ---
EXAMINATION TYPE: XR chest 2V DATE OF EXAM: 05/25/2022 COMPARISON: 03/16/2022 TECHNIQUE: PA and lateral views submitted. HISTORY: Chest pain FINDINGS: The lungs are clear and there is no pneumothorax, pleural effusion, or focal pneumonia. Heart size at the upper limits of normal course and interstitium. Prominent pulmonary arteries suggesting pulmonary arterial hypertension. AC joint arthropathy. Surgic al clips in the abdomen.. Osseous structures demonstrate hypertrophic and degenerative changes of the spine. IMPRESSION: 1. Cardiomegaly correlate for chronic interstitial lung disease pulmonary fibrosis. Persistent promin ence of the hilar structures are stable from prior exam correlate for pulmonary arterial hypertension .
[2022-05-25] MEDS ORDERED: NALOXONE 0.4 MG/ML 1 ML VIAL IV PRN (15:06)
[2022-05-25] MEDS ORDERED: MELATONIN 3 MG TABLET PO PRN (15:06)
[2022-05-25] MEDS ORDERED: CALCIUM CARBONATE 500 MG CHEWABLE PO PRN (15:06)
[2022-05-25] MEDS ORDERED: ONDANSETRON 4 MG/2 ML VIAL IVP PRN (15:06)
[2022-05-25] MEDS ORDERED: ACETAMINOPHEN TAB 325 MG TAB PO PRN (15:06)
[2022-05-25] MEDS ORDERED: LACTULOSE 20 GM/30 ML CUP PO PRN (15:06)
--- NOTE | 2022-05-25 17:16 | P.HPIM ---
History of Present Illness H&P Date: 05/25/22 Chief Complaint: Chest pain This is a pleasant 76-year-old patient who follows with Dr. Miller. 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 Chronic stable medical conditions include diabetes, hypertension, hyperlipidemia, CAD with stent 5 in 2019. Patient was admitted here in March with CHF exacerbation. Patient states that she's had chest pain on and off for some time. Close to a year ago patient did have a stress test as well as negative. Patient was scheduled to have another stress test. Presented today with much increasing chest pain. The normal. Nitroglycerin has sometimes other times not. No shortness of breath no fever or chills no cough. Patient has chronic lower ext remity edema. Patient is described pain as all over the chest. No dizziness no lightheadedness. No radiation. Review of systems: GEN.: Tired EYES: None HEENT: None NECK: None RESPIRATORY: None CARDIOVASCULAR: [As above GASTROINTESTINAL: None GENITOURINARY: None MUSCULOSKELETAL: Joint pain LYMPHATICS: None HEMATOLOGICAL: None PSYCHIATRY: None NEUROLOGICAL: None Past medical history to include: Diabetes, hypertension, hyperlipidemia, GA in 2010, CAD with stent in 2019 Social history: . No smoking or alcohol Physical examination: VITAL SIGNS: 98, 125, 24, 141/77, 98% room air GENERAL: BMI 51.2, sitting edge of the bed, EYES: Pupils equal. Conjunctiva normal. HEENT: External appearance of nose and ears normal, oral cavity grossly normal. NECK: JVD not raised; masses not palpable. HEART: First and second heart sounds are normal; some edema. LUNGS: Respiratory rate increased; decreased breath sound. ABDOMEN: Soft, nontender, liver spleen not palpable, no masses palpable. PSYCH: Alert and oriented x3; mood and affect normal. MUSCULOSKELETAL:No Clubbing/cyanosis;muscles-grossly intact. OA NEUROLOGICAL: Cranial nerves grossly intact; no facial asymmetry, power and sensation grossly intact. LYMPHATICS: No lymph nodes palpable in the axilla and neck INVESTIGATIONS, reviewed in the clinical context: EKG tracing personally reviewed by me-sinus tachycardia. ST-T wave changes. Across. Chest x-ray film personally reviewed by me-cardiomegaly. Prominent pulmonary artery WBC 8.3 hemoglobin 14.5 platelets 172 sodium 137 potassium 4.9 BUN 23 creatinine 1.23, Troponin I 0.0118, 0.608 Assessment and plan: -Acute non-Q-wave GA. Known CAD. Aspirin, IV heparin, beta darian, nitroglycerin drip. -CAD with multiple stents in 2019 Aspirin, Toprol-XL, Zestril, Lipitor -IV heparin monitoring, follow PTT -chronic congestive diastolic heart failure EF not known. Lasix Aldactone-headed for now because of renal function. -Diabetes mellitus type 2, chronically on insulin Humalog mix 75/25 twice a day follow Accu-Cheks with sliding scale -Essential hypertension Toprol-XL, Vasotec amlodipine -Acute kidney injury, likely prerenal. Creatinine was 0.98 on 03/21/2022. Today 1.23. Hold diuretics. IV fluids. -Morbid obesity BMI 51.2 Weight loss measures. Follow with PCP. Discussed with patient. Cardiology consulted. For cardiac catheterization. Past Medical History Past Medical History: Cancer, Diabetes Mellitus, Hyperlipidemia, Hypertension, Myocardial Infarction (GA) Additional Past Medical History / Comment(s): 6 stents placed and 2 heart attacks Last Myocardial Infarction Date:: 2009 History of Any Multi-Drug Resistant Organisms: None Reported Past Surgical History: Cholecystectomy, Heart Catheterization With Stent, Hysterectomy, Orthopedic Surgery Additional Past Surgical History / Comment(s): right knee replacement-2017. D&C x 2. History of cardiac stent placement x5. June 2018. last cardiac stent placement Past Psychological History: No Psychological Hx Reported Smoking Status: Never smoker Past Alcohol Use History: None Reported Past Drug Use History: None Reported - Past Family History Mother Family Medical History: Myocardial Infarction (GA) Father Family Medical History: CVA/TIA Brother(s) Family Medical History: Cancer, Coronary Artery Disease (CAD) Son(s) Family Medical History: No Reported History Daughter(s) Family Medical History: No Reported History Medications and Allergies Home Medications Medication Instructions Recorded Confirmed Type Clopidogrel Bisulfate [Plavix] 75 mg PO DAILY 06/20/18 05/25/22 History Metoprolol Succinate (ER) [Toprol 25 mg PO DAILY 06/20/18 05/25/22 History XL] amLODIPine BESYLATE [Norvasc] 10 mg PO DAILY 06/20/18 05/25/22 History Nitroglycerin Sl Tabs [Nitrostat] 0.4 mg SUBLINGUAL Q5M PRN #25 tab 06/22/18 05/25/22 Rx Insulin Lispro Protamin/Lispro 40 - 55 unit SQ BID 03/21/22 05/25/22 History [humaLOG MIX 75-25 Kwikpen] Acetylcysteine [Nac] 600 mg PO DAILY 03/22/22 05/25/22 History Ascorbic Acid [Vitamin C] 1,000 mg PO DAILY 03/22/22 05/25/22 History Cyanocobalamin [Vitamin B-12] 500 mcg PO DAILY 03/22/22 05/25/22 History Enalapril Maleate [Vasotec] 20 mg PO HS #0 03/22/22 05/25/22 Rx Ergocalciferol [Vitamin D2 (1250 1,250 mcg PO SAMUELS 03/22/22 05/25/22 History Mcg = 72365 Iu)] Furosemide [Lasix] 40 mg PO DAILY #90 tablet 03/22/22 05/25/22 Rx Isosorbide Mononitrate ER [Imdur] 30 mg PO DAILY #30 tab 03/22/22 05/25/22 Rx Magnesium Oxide [Magnesium] 500 mg PO DAILY 03/22/22 05/25/22 History Spironolactone [Aldactone] 12.5 mg PO DAILY #45 tablet 03/22/22 05/25/22 Rx Zinc Gluconate [Zinc] 50 mg PO DAILY 03/22/22 05/25/22 History Biotin 5 mg PO DAILY 05/25/22 05/25/22 History Allergies Allergy/AdvReac Type Severity Reaction Status Date / Time Penicillins Allergy Rash/Hives/ Verified 05/25/22 13:23 Blistering Physical Exam Vitals: Vital Signs Temp Pulse Resp BP Pulse Ox 05/25/22 16:16 98.2 F 86 18 126/75 96 05/25/22 14:52 83 17 130/82 94 L 05/25/22 14:13 84 17 130/76 93 L 05/25/22 13:42 98.2 F 79 17 131/75 95 05/25/22 13:15 85 16 136/78 94 L 05/25/22 12:43 89 16 144/81 94 L 05/25/22 11:48 112 H 20 05/25/22 11:26 98.0 F 125 H 24 141/77 98 Intake and Output 05/25/22 05/25/22 05/25/22 06:59 14:59 22:59 Other: Weight 127.006 kg Results CBC & Chem 7: 05/25/22 11:58 05/25/22 11:58 Labs: Abnormal Lab Results - Last 24 Hours (Table) 05/25/22 05/25/22 Range/Units 11:58 11:58 BUN 23 H (7-17) mg/dL Creatinine 1.23 H (0.52-1.04) mg/dL Glucose 270 H (74-99) mg/dL Troponin I 0.118 H* (0.000-0.034) ng/mL
[2022-05-25 17:25] LABS: Glucose,Whole Blood 299 mg/dL (70-110)
[2022-05-25] MEDS: INSULN ASP PRT/INSULIN ASPART 100 UNIT/ML 10 ML VIAL SQ SCH (17:41)
[2022-05-25 18:57] LABS: Glucose,Whole Blood 278 mg/dL (70-110)
[2022-05-25 21:23] LABS: Partial Thromboplastin Time 26.9 sec (22.0-30.0); Prothrombin Time 10.2 sec (9.0-12.0)
[2022-05-25] MEDS: lisinopriL 20 MG TAB PO SCH (21:41)
[2022-05-26] MEDS: ASPIRIN 325 MG TAB PO ONE ×2 (05:34→06:31)
[2022-05-26 06:00] LABS: Glucose,Whole Blood 145 mg/dL (70-110)
[2022-05-26] MEDS: MAGNESIUM OXIDE 400 MG TAB PO SCH (06:30)
[2022-05-26] MEDS: CLOPIDOGREL 75 MG TAB PO SCH (06:30)
[2022-05-26] MEDS: ASCORBIC ACID 500 MG TAB PO SCH (06:30)
[2022-05-26] MEDS: CYANOCOBALAMIN 500 MCG TAB PO SCH (06:30)
[2022-05-26] MEDS: amLODIPine 10 MG TAB PO SCH (06:31)
[2022-05-26] MEDS: METOPROLOL SUCCINATE (ER) 25 MG TAB.ER.24H PO SCH (06:31)
[2022-05-26] MEDS: ZINC SULFATE 220 MG CAP PO SCH (06:31)
[2022-05-26] MEDS: SODIUM CHLORIDE 0.9% 1,000 ML IV SCH ×2 (06:37→18:41)
[2022-05-26] MEDS ORDERED: HEPARIN SODIUM,PORCINE 10,000 UNIT in SODIUM CHLORIDE 0.9% 1,000 ML IRRIGATION PRN (07:00)
[2022-05-26] MEDS ORDERED: HEPARIN SODIUM,PORCINE 2,500 UNIT in SODIUM CHLORIDE 0.9% 250 ML IRRIGATION PRN (07:00)
[2022-05-26] MEDS ORDERED: ATORVASTATIN 80 MG TAB PO ONE (07:00)
[2022-05-26] MEDS ORDERED: fentaNYL (PF) 50 MCG/ML 2 ML AMP ONE (07:15)
[2022-05-26] MEDS ORDERED: HEPARIN SODIUM 1,000 UN/ML (10ML VL) ONE (07:15)
[2022-05-26] MEDS ORDERED: VERAPAMIL 2.5 MG/ML 2 ML AMP ONE (07:15)
[2022-05-26] MEDS ORDERED: LIDOCAINE 1% INJ 10MG/ML (5 ML VIAL-PF) SQ ONE (07:40)
[2022-05-26] MEDS ORDERED: MIDAZOLAM 2 MG/2 ML VIAL IVP ONE (07:40)
[2022-05-26] MEDS: fentaNYL (PF) 50 MCG/ML 2 ML AMP IVP ONE ×2 (07:40→07:54)
[2022-05-26] MEDS ORDERED: VERAPAMIL SYRINGE (5 MG/10 ML) INTRAARTER ONE (07:43)
[2022-05-26] MEDS ORDERED: HEPARIN SODIUM 1,000 UN/ML (10ML VL) IVP ONE (07:47)
[2022-05-26] MEDS ORDERED: FUROSEMIDE 10 MG/ML 4 ML VIAL ONE (07:56)
[2022-05-26] MEDS ORDERED: NITROGLYCERIN OINT 1 INCH/GM PACKET TOPICAL ONE ×2 (07:58→08:01)
[2022-05-26] MEDS ORDERED: FUROSEMIDE 10 MG/ML 4 ML VIAL IV ONE (08:00)
[2022-05-26] MEDS ORDERED: SODIUM CHLORIDE 0.9% 1,000 ML IV ONE (08:00)
[2022-05-26] MEDS ORDERED: METOPROLOL TARTRATE 5 MG/5 ML VIAL IVP ONE ×2 (08:17→08:20)
[2022-05-26] MEDS ORDERED: HYDROmorphone 0.5 MG/0.5 ML SYRINGE IVP ONE (08:21)
[2022-05-26] MEDS ORDERED: HEPARIN SOD,PORK IN 0.45% NACL 25,000 UNIT in 0.45% NACL 1 250ML.BAG IV ONE (08:35)
[2022-05-26] MEDS ORDERED: NITROGLYCERIN-D5W PMX 50 MG in DEXTROSE/WATER 1 250ML.BAG IV ONE (08:35)
[2022-05-26] MEDS ORDERED: RX INFO: IV CONTRAST WAS GIVEN 1 EACH MISC MISCELLANE PRN (08:37)
[2022-05-26] MEDS ORDERED: IOPAMIDOL-370 100ML BTL INJ ONE (08:40)
--- NOTE | 2022-05-26 08:50 | CC ---
CARDIAC CATHETERIZATION REPORT INDICATION: Acute lsz-NZ-[id number] elevation SC. PROCEDURE NOTE: After obtaining informed consent, left heart catheterization and coronary angiogram were performed via right radial artery using standard Yamini catheters. The patient tolerated the procedure well without any obvious immediate complications, received moderate conscious sedation. Total sedation time was 17 minutes. Right radial artery access was obtained using Seldinger technique. A 6-Cymro sheath was placed and catheters and wires were floated into the ascending aorta under fluoroscopic guidance. The patient received verapamil and heparin per protocol. FINDINGS: 1. HEMODYNAMICS: Left ventricular end-diastolic pressure is 30 mm. There is no significant gradient across the aortic valve. 2. LEFT VENTRICULOGRAM: Left ventriculogram is not performed. 3. ANGIOGRAPHIC DATA: a.Right coronary artery appears totally occluded in its midportion with extensive ljti-[id number] collaterals to the distal RCA. b.Left main coronary artery: Left main coronary artery is a normal-sized vessel and is free of stenosis. Divides into left anterior descending coronary artery and circumflex coronary artery. Circ is a nondominant vessel and was previously stented in the proximal portion. The stent appears patent. There is a medium caliber OM branch that shows a 90% ostial stenosis. This has progressed compared to previous angiogram. LAD was previously stented in the proximal portion. The stent appears patent. There is an area of haziness in the mid LAD just at the distal end of the stent and past the stent with a 50% to 70% stenosis, probably this represents an area of plaque rupture. Distal LAD is a very small caliber vessel. The diagonal branch has a significant lesion. CONCLUSIONS: Three-vessel coronary artery disease as described above with a chronically occluded mid right coronary artery with [id number] collaterals. Patent stents within the circ and LAD with what appears like an area of plaque rupture in the LAD, significant stenosis involving the ostial OM, and the diagonal branches. PLAN: I am going to review angiographic data with Dr. Denise, the oil well services superintendent, who performed her angioplasties in the past and see if there is any percutaneous intervention we can do. If not, I am going to consult a cardiothoracic surgeon. MMODL / IJN: [id number] /
[2022-05-26] MEDS ORDERED: FUROSEMIDE 40 MG TAB PO SCH (09:00)
[2022-05-26] MEDS ORDERED: SPIRONOLACTONE 25 MG TAB PO SCH (09:00)
[2022-05-26] MEDS ORDERED: ISOSORBIDE MONONITRATE ER 30 MG TAB.ER.24H PO SCH (09:00)
[2022-05-26 09:05] LABS: Glucose,Whole Blood 179 mg/dL (70-110)
[2022-05-26 09:07] LABS: Chol/HDL Ratio 2.78 Ratio; LDL Cholesterol,Calculated 81.6 mg/dL (0.0-131.0)
[2022-05-26] MEDS ORDERED: HEPARIN SODIUM 1,000 UN/ML (10ML VL) IV PRN (09:09)
[2022-05-26] MEDS: ASPIRIN 325 MG TAB PO SCH (09:12)
[2022-05-26] MEDS: HEPARIN SOD,PORK IN 0.45% NACL 25,000 UNIT in 0.45% NACL 1 250ML.BAG IV SCH (09:16)
--- NOTE | 2022-05-26 09:22 | P.GSCN ---
History of Present Illness Consult date: 05/26/22 Reason for Consult: Triple-vessel coronary artery disease Requesting physician: Yolie Foley History of present illness: This is a 77-year-old female patient of nurse practitioner Mickie Saenz for primary care as well as Dr. Krause for cardiology. She has a previous medical history of coronary artery disease with previous myocardial infarction and previous PCI, hypertension, hyperlipidemia, insulin-dependent diabetes, remote history of pneumonia, uterine cancer status post hysterectomy, morbid obesity, vein stripping to her left leg, and family history of premature coronary artery disease. She reports intermittent chest pain off and on for the last couple of years along with shortness of breath. Unfortunately her chest pains got worse over the last 24 hours and she reported to [facility] emergency room yesterday for evaluation and treatment. Troponins were elevated and she was ruled in for non-STEMI. She was recommended to undergo heart catheterization which was completed today and which demonstrated triple-vessel coronary artery disease. She continued to have chest pain which was partially relieved with administration of IV nitroglycerin. She was admitted to the intensive care unit and consultation was placed to cardiothoracic surgery for surgical revascularization recommendations. Review of Systems Review of systems was completed and was negative except as noted - Cardiovascular Reports as per HPI, Reports chest pain, Reports leg edema, Reports shortness of breath Past Medical History Past Medical History: Coronary Artery Disease (CAD), Cancer, Chest Pain / Angina, Diabetes Mellitus, Hyperlipidemia, Hypertension, Myocardial Infarction ([place]), Pneumonia Additional Past Medical History / Comment(s): 6 stents placed and 2 heart attacks; uterine cancer 2011 Last Myocardial Infarction Date:: 2019 History of Any Multi-Drug Resistant Organisms: None Reported Past Surgical History: Cholecystectomy, Heart Catheterization With Stent, Hysterectomy, Orthopedic Surgery Additional Past Surgical History / Comment(s): right knee replacement-2017. D&C x 2. History of cardiac stent placement x5. June 2018. last cardiac stent placement. Left leg vein stripping Past Anesthesia/Blood Transfusion Reactions: No Reported Reaction Date of Last Stent Placement:: 2019 Past Psychological History: No Psychological Hx Reported Smoking Status: Never smoker Past Alcohol Use History: None Reported Past Drug Use History: None Reported - Past Family History Mother Family Medical History: CVA/TIA, Myocardial Infarction ([place]) Additional Family Medical History / Comment(s): at 94 years old Father Family Medical History: CVA/TIA Additional Family Medical History / Comment(s): Dietd at 98 years old Brother(s) Family Medical History: Cancer, Coronary Artery Disease (CAD) Additional Family Medical History / Comment(s): Heart disease diagnosed in his 40s Son(s) Family Medical History: No Reported History Daughter(s) Family Medical History: No Reported History Medications and Allergies Home Medications Medication Instructions Recorded Confirmed Type Clopidogrel Bisulfate [Plavix] 75 mg PO DAILY 06/20/18 05/25/22 History Metoprolol Succinate (ER) [Toprol 25 mg PO DAILY 06/20/18 05/25/22 History XL] amLODIPine BESYLATE [Norvasc] 10 mg PO DAILY 06/20/18 05/25/22 History Nitroglycerin Sl Tabs [Nitrostat] 0.4 mg SUBLINGUAL Q5M PRN #25 tab 06/22/18 05/25/22 Rx Insulin Lispro Protamin/Lispro 40 - 55 unit SQ BID 03/21/22 05/25/22 History [humaLOG MIX 75-25 Kwikpen] Acetylcysteine [Nac] 600 mg PO DAILY 03/22/22 05/25/22 History Ascorbic Acid [Vitamin C] 1,000 mg PO DAILY 03/22/22 05/25/22 History Cyanocobalamin [Vitamin B-12] 500 mcg PO DAILY 03/22/22 05/25/22 History Enalapril Maleate [Vasotec] 20 mg PO HS #0 03/22/22 05/25/22 Rx Ergocalciferol [Vitamin D2 (1250 1,250 mcg PO SAMUELS 03/22/22 05/25/22 History Mcg = 51803 Iu)] Furosemide [Lasix] 40 mg PO DAILY #90 tablet 03/22/22 05/25/22 Rx Isosorbide Mononitrate ER [Imdur] 30 mg PO DAILY #30 tab 03/22/22 05/25/22 Rx Magnesium Oxide [Magnesium] 500 mg PO DAILY 03/22/22 05/25/22 History Spironolactone [Aldactone] 12.5 mg PO DAILY #45 tablet 03/22/22 05/25/22 Rx Zinc Gluconate [Zinc] 50 mg PO DAILY 03/22/22 05/25/22 History Biotin 5 mg PO DAILY 05/25/22 05/25/22 History Allergies Allergy/AdvReac Type Severity Reaction Status Date / Time Penicillins Allergy Rash/Hives/ Verified 05/25/22 13:23 Blistering Surgical - Exam Vital Signs Temp Pulse Resp BP Pulse Ox 98.0 F 125 H 24 141/77 98 05/25/22 11:26 05/25/22 11:26 05/25/22 11:26 05/25/22 11:26 05/25/22 11:26 CONSTITUTIONAL: Awake and alert, appears comfortable, cooperative, well- developed, well-nourished, no pain, no acute distress, morbidly obese EYES: Pupils equal, round, reactive to light, normal ocular movement ENT: Moist mucous membranes without oral lesions present NECK: No masses, no bruits, trachea midline RESPIRATORY: Lungs sounds diminished bilaterally. Respirations even, nonlabored. Currently on 2 L nasal cannula with oxygen saturation 96%. Strong cough. No chest wall deformities. No clubbing or cyanosis present CARDIOVASCULAR: S1, S2 present. Regular rate and rhythm, sinus rhythm on telemetry. Palpable peripheral pulses bilaterally. Bilateral lower extremity edema present. No calf pain or tenderness noted. GASTROINTESTINAL: Abdomen soft, nontender, nondistended, obese without masses or organomegaly noted. There is no rebound or guarding present. Active bowel sounds present 4 quadrants. GENITOURINARY: Deferred INTEGUMENTARY: Skin is warm and dry, venous insufficiency present to bilateral lower extremities NEUROLOGIC: Cranial nerves II through XII intact, normal coordination, no obvious motor or sensory deficits, speech is normal MUSKULOSKELETAL: Able to move all extremities, strength equal bilaterally, normal posture PSYCHIATRIC: Alert and oriented to person place and time, appropriate affect, intact judgment and insight Results - Labs 05/25/22 11:58 05/25/22 11:58 Abnormal Lab Results - Last 24 Hours (Table) 05/25/22 05/25/22 05/25/22 Range/Units 11:58 11:58 15:23 APTT (22.0-30.0) sec BUN 23 H (7-17) mg/dL Creatinine 1.23 H (0.52-1.04) mg/dL Glucose 270 H (74-99) mg/dL POC Glucose (mg/dL) (70-110) mg/dL Troponin I 0.118 H* 0.608 H* (0.000-0.034) ng/mL 05/25/22 05/25/22 05/25/22 Range/Units 17:18 18:32 18:52 APTT (22.0-30.0) sec BUN (7-17) mg/dL Creatinine (0.52-1.04) mg/dL Glucose (74-99) mg/dL POC Glucose (mg/dL) 299 H 278 H (70-110) mg/dL Troponin I 0.872 H* (0.000-0.034) ng/mL 05/26/22 05/26/22 05/26/22 Range/Units 04:34 05:59 09:03 APTT 38.7 H (22.0-30.0) sec BUN (7-17) mg/dL Creatinine (0.52-1.04) mg/dL Glucose (74-99) mg/dL POC Glucose (mg/dL) 145 H 179 H (70-110) mg/dL Troponin I (0.000-0.034) ng/mL Diabetes panel 05/25/22 05/26/22 Range/Units 11:58 04:34 Sodium 137 (137-145) mmol/L Potassium 4.9 (3.5-5.1) mmol/L Chloride 103 (98-107) mmol/L Carbon Dioxide 28 (22-30) mmol/L BUN 23 H (7-17) mg/dL Creatinine 1.23 H (0.52-1.04) mg/dL Glucose 270 H (74-99) mg/dL Calcium 8.7 (8.4-10.2) mg/dL AST 26 (14-36) U/L ALT 21 (4-34) U/L Alkaline Phosphatase 122 (38-126) U/L Total Protein 6.4 (6.3-8.2) g/dL Albumin 3.5 (3.5-5.0) g/dL Triglycerides 107.00 (0.00-149.00) mg/dL HDL Cholesterol 58.00 (40.00-60.00) mg/dL Calcium panel 05/25/22 Range/Units 11:58 Calcium 8.7 (8.4-10.2) mg/dL Albumin 3.5 (3.5-5.0) g/dL Pituitary panel 05/25/22 Range/Units 11:58 Sodium 137 (137-145) mmol/L Potassium 4.9 (3.5-5.1) mmol/L Chloride 103 (98-107) mmol/L Carbon Dioxide 28 (22-30) mmol/L BUN 23 H (7-17) mg/dL Creatinine 1.23 H (0.52-1.04) mg/dL Glucose 270 H (74-99) mg/dL Calcium 8.7 (8.4-10.2) mg/dL Adrenal panel 05/25/22 Range/Units 11:58 Sodium 137 (137-145) mmol/L Potassium 4.9 (3.5-5.1) mmol/L Chloride 103 (98-107) mmol/L Carbon Dioxide 28 (22-30) mmol/L BUN 23 H (7-17) mg/dL Creatinine 1.23 H (0.52-1.04) mg/dL Glucose 270 H (74-99) mg/dL Calcium 8.7 (8.4-10.2) mg/dL Total Bilirubin 0.9 (0.2-1.3) mg/dL AST 26 (14-36) U/L ALT 21 (4-34) U/L Alkaline Phosphatase 122 (38-126) U/L Total Protein 6.4 (6.3-8.2) g/dL Albumin 3.5 (3.5-5.0) g/dL - Imaging Chest x-ray: report reviewed, image reviewed EKG: image reviewed Additional studies: Heart catheterization films reviewed Assessment and Plan Assessment: Coronary artery disease, non-STEMI this admission Previous myocardial infarction and previous PCI and 2005, 2010, 2018 Hypertension Hyperlipidemia, treated Insulin-dependent diabetes since 1988 Remote history of pneumonia Uterine cancer status post hysterectomy in 2011 Morbid obesity Vein stripping to her left leg Family history of premature coronary artery disease (brother diagnosed in his 40s) Plan: The patient was seen and examined at the bedside. Chart/diagnostics reviewed. The case will be discussed in detail with Dr. Hunt who is on his way to see the patient. The usual perioperative course of open-heart surgery discussed in detail with the patient, risks and benefits reviewed, all questions answered. Recommend continuing aspirin, statin, beta darian therapy. Continue IV nitroglycerin and heparin. Hold Plavix, last dose given this morning. Preoperative testing initiated, once completed will calculate STS risk score and discuss with the patient. We'll place consult to pulmonology for preop clearance. Medical management of other comorbidities per internal medicine, cardiology. More recommendations to follow. I have personally seen and examined the patient, performed the documentation and the assessment and plan as written. Number of minutes spent on the visit: 30. Lisa Syed, GERA-C
--- NOTE | 2022-05-26 09:51 | CA ---
Transthoracic Echo Report Name: Drea Sosa Age: 77 Gender: F : 1945 Exam Date: 05/26/2022 08:28 Exam Location: [facility] Ht (in): 62 Wt (lb): 280 Ordering Physician: Yolie Foley MD Attending/Referring Phys: Fitter Mechanic Blanca Caal RDCS Procedure CPT: Indications: LV FUNCTION AND MR Cardiac Hx: hx of stents Technical Quality: Fair Contrast 1: Total Dose (mL): Contrast 2: Total Dose (mL): MEASUREMENTS (Male / Female) Normal Values 2D ECHO LV Diastolic Diameter PLAX 5.5 cm 4.2 - 5.9 / 3.9 - 5.3 cm LV Systolic Diameter PLAX 4.4 cm IVS Diastolic Thickness 1.3 cm 0.6 - 1.0 / 0.6 - 0.9 cm LVPW Diastolic Thickness 1.2 cm 0.6 - 1.0 / 0.6 - 0.9 cm LV Relative Wall Thickness 0.5 RV Internal Dim ED PLAX 2.8 cm LA Systolic Diameter LX 4.1 cm 3.0 - 4.0 / 2.7 - 3.8 cm LV Diastolic Volume MOD BP 138.7 cm??? 67 - 155 / 56 - 104 cm??? LV Systolic Volume MOD BP 121.5 cm??? 22 - 58 / 19 - 49 cm??? LV Ejection Fraction MOD BP 12.4 % >= 55 % LV Diastolic Volume MOD 4C 137.6 cm??? LV Systolic Volume MOD 4C 83.9 cm??? LV Ejection Fraction MOD 4C 39.0 % LV Diastolic Length 4C 8.2 cm LV Systolic Length 4C 7.1 cm LV Diastolic Volume MOD 2C 151.9 cm??? LV Systolic Volume MOD 2C 157.4 cm??? LV Ejection Fraction MOD 2C -3.6 % LV Diastolic Length 2C 7.7 cm LV Systolic Length 2C 7.9 cm LA Volume 49.7 cm??? 18 - 58 / 22 - 52 cm??? M-MODE LV Diastolic Diameter MM 5.5 cm 4.2 - 5.9 / 3.9 - 5.3 cm LV Systolic Diameter MM 4.4 cm IVS Diastolic Thickness MM 1.3 cm 0.6 - 1.0 / 0.6 - 0.9 cm LVPW Diastolic Thickness MM 1.4 cm 0.6 - 1.0 / 0.6 - 0.9 cm LV Relative Wall Thickness MM 0.5 0.24 - 0.42 / 0.22 - 0.42 LV Mass Index MM 136.0 g/m??? 49 - 115 / 43 - 95 g/m??? Aortic Root Diameter MM 3.2 cm MV E Point Septal Separation 2.4 cm AV Cusp Separation MM 1.9 cm DOPPLER MV Area PHT 8.3 cm??? Mitral E Point Velocity 104.1 cm/s Mitral A Point Velocity 54.0 cm/s Mitral E to A Ratio 1.9 MV Deceleration Time 91.9 ms FINDINGS Left Ventricle Left ventricular ejection fraction is estimated at 35-40 %. Severely increased left ventricular mass. Mildly increased septal wall thickness. Mildly increased posterior wall thickness. Moderately decreased fractional shortening. Severely decreased midwall fractional shortening. Mildly increased left ventricular diastolic diameter. Severely increased left ventricular diastolic volume. Severely increased left ventricular systolic volume. Moderately increased left ventricular relative wall thickness. Severely decreased left ventricular ejection fraction. Right Ventricle Normal right ventricular size and function. Right Atrium Normal right atrial size. Left Atrium Mildly increased left atrial diameter. Mitral Valve Mitral valve thickened. Mitral annular calcification. [id number] mitral regurgitation. Aortic Valve Aortic valve not well visualized. No aortic valve stenosis or regurgitation. Tricuspid Valve Structurally normal tricuspid valve. No tricuspid regurgitation. Pulmonic Valve Pulmonic valve not well visualized. Pericardium Normal pericardium. No pericardial effusion. Aorta Normal size aortic root and proximal ascending aorta. CONCLUSIONS Dilated left ventricle with severe LV dysfunction and 2 plus mitral regurgitation Previewed by: Dr. Jeronimo Adams MD (Electronically Signed) Final Date: 26 May 2022 09:50
[2022-05-26 10:02] LABS: ALT 21 U/L (4-34); AST 33 U/L (14-36); African American GFR (CKD) 48 (>60 ml/min/1.73 sqM); Albumin 3.6 g/dL (3.5-5.0); Alkaline Phosphatase 116 U/L (38-126); Anion Gap 10 mmol/L; Blood Urea Nitrogen 27 mg/dL (7-17); Calcium 8.6 mg/dL (8.4-10.2); Carbon Dioxide 21 mmol/L (22-30); Chloride 106 mmol/L (98-107); Glucose 192 mg/dL (74-99); Magnesium 2.3 mg/dL (1.6-2.3); Non-African American GFR(CKD) 42 (>60 ml/min/1.73 sqM); Potassium 5.1 mmol/L (3.5-5.1); Sodium 137 mmol/L (137-145); Total Bilirubin 1.1 mg/dL (0.2-1.3); Total Protein 6.6 g/dL (6.3-8.2)
[2022-05-26] MEDS ORDERED: BENZOCAINE/MENTHOL LOZENG 1 EACH LOZENGE MUCOUS MEM PRN (10:12)
[2022-05-26] MEDS: INSULN ASP PRT/INSULIN ASPART 100 UNIT/ML 10 ML VIAL SQ SCH ×2 (10:17→18:41)
[2022-05-26] MEDS: NON FORMULARY DRUG (Acetylcysteine [Nac] 600 MG Tablet) PO SCH (10:33)
[2022-05-26] MEDS ORDERED: FUROSEMIDE 10 MG/ML 4 ML VIAL IV STA (10:38)
--- NOTE | 2022-05-26 10:53 | P.CNPUL ---
History of Present Illness Consult date: 05/26/22 Requesting physician: Dylan Moffett Chief complaint: Coronary artery disease. History of present illness: Pulmonary consult dated 05/26/2022. 77-year-old female with history of multiple medical problems including coronary disease, previous myocardial infarction, multiple stent placements, hypertension, hyperlipidemia, diabetes, and chronic kidney disease. The patient has had 6 cardiac stents in the past. Minute to the hospital, with chest pain, on May 25, and was found to have a non-ST segment elevation myocardial infarction. She's currently being evaluated by cardiothoracic surgery for bypass grafting. She's currently in the ICU at room 256. The patient is on 2 L of oxygen. Receiving IV nitroglycerin at 10 mcg/m, and IV heparin via weightbase protocol. The patient's also receiving saline at KVO. The patient is scheduled to have a bedside spirometry. She has just been evaluated by cardiothoracic surgery. Current labs include a sodium 137, potassium 5.1, chlorides 106, CO2 21, BUN 27 creatinine 1.25. Thyroid function is normal. Chest x-ray is positive for cardiomegaly, and possible chronic interstitial lung disease. Review of Systems REVIEW OF SYSTEMS: CONSTITUTIONAL: [Negative.] NEUROLOGIC: [ Negative.] HEENT: [ Negative.] CARDIAC: Chest pain. PULMONARY: [Negative.] GI: [Negative.] : [Negative.] RHEUMATOLOGIC: [ Negative.] IMMUNOLOGIC: [ Negative.] ENDOCRINE: [Negative. ] DERMATOLOGIC: [Negative.] Past Medical History Past Medical History: Coronary Artery Disease (CAD), Cancer, Chest Pain / Angina, Diabetes Mellitus, Hyperlipidemia, Hypertension, Myocardial Infarction ([place]), Pneumonia Additional Past Medical History / Comment(s): 6 stents placed and 2 heart attacks; uterine cancer 2011 Last Myocardial Infarction Date:: 2018 History of Any Multi-Drug Resistant Organisms: None Reported Past Surgical History: Cholecystectomy, Heart Catheterization With Stent, Hysterectomy, Orthopedic Surgery Additional Past Surgical History / Comment(s): right knee replacement-2017. D&C x 2. History of cardiac stent placement x5. June 2018. last cardiac stent placement. Left leg vein stripping Past Anesthesia/Blood Transfusion Reactions: No Reported Reaction Date of Last Stent Placement:: 2018 Past Psychological History: No Psychological Hx Reported Smoking Status: Never smoker Past Alcohol Use History: None Reported Past Drug Use History: None Reported - Past Family History Mother Family Medical History: CVA/TIA, Myocardial Infarction ([place]) Additional Family Medical History / Comment(s): at 94 years old Father Family Medical History: CVA/TIA Additional Family Medical History / Comment(s): Dietd at 98 years old Brother(s) Family Medical History: Cancer, Coronary Artery Disease (CAD) Additional Family Medical History / Comment(s): Heart disease diagnosed in his 40s Son(s) Family Medical History: No Reported History Daughter(s) Family Medical History: No Reported History Medications and Allergies Home Medications Medication Instructions Recorded Confirmed Type Clopidogrel Bisulfate [Plavix] 75 mg PO DAILY 06/20/18 05/25/22 History Metoprolol Succinate (ER) [Toprol 25 mg PO DAILY 06/20/18 05/25/22 History XL] amLODIPine BESYLATE [Norvasc] 10 mg PO DAILY 06/20/18 05/25/22 History Nitroglycerin Sl Tabs [Nitrostat] 0.4 mg SUBLINGUAL Q5M PRN #25 tab 06/22/18 05/25/22 Rx Insulin Lispro Protamin/Lispro 40 - 55 unit SQ BID 03/21/22 05/25/22 History [humaLOG MIX 75-25 Kwikpen] Acetylcysteine [Nac] 600 mg PO DAILY 03/22/22 05/25/22 History Ascorbic Acid [Vitamin C] 1,000 mg PO DAILY 03/22/22 05/25/22 History Cyanocobalamin [Vitamin B-12] 500 mcg PO DAILY 03/22/22 05/25/22 History Enalapril Maleate [Vasotec] 20 mg PO HS #0 03/22/22 05/25/22 Rx Ergocalciferol [Vitamin D2 (1250 1,250 mcg PO SAMUELS 03/22/22 05/25/22 History Mcg = 81700 Iu)] Furosemide [Lasix] 40 mg PO DAILY #90 tablet 03/22/22 05/25/22 Rx Isosorbide Mononitrate ER [Imdur] 30 mg PO DAILY #30 tab 03/22/22 05/25/22 Rx Magnesium Oxide [Magnesium] 500 mg PO DAILY 03/22/22 05/25/22 History Spironolactone [Aldactone] 12.5 mg PO DAILY #45 tablet 03/22/22 05/25/22 Rx Zinc Gluconate [Zinc] 50 mg PO DAILY 03/22/22 05/25/22 History Biotin 5 mg PO DAILY 05/25/22 05/25/22 History Allergies Allergy/AdvReac Type Severity Reaction Status Date / Time Penicillins Allergy Rash/Hives/ Verified 05/25/22 13:23 Blistering Physical Exam Osteopathic Statement: *. No significant issues noted on an osteopathic structural exam other than those noted in the History and Physical/Consult. Vitals: Vital Signs Temp Pulse Pulse Pulse Resp BP BP 05/26/22 10:00 92 22 147/84 05/26/22 09:51 97.7 F 92 17 134/83 05/26/22 08:59 97.7 F 90 14 133/69 05/26/22 04:00 89 18 114/68 05/26/22 02:00 83 20 05/26/22 00:00 97.9 F 83 20 05/25/22 20:00 84 18 141/75 05/25/22 18:54 86 18 139/78 05/25/22 17:39 80 18 146/80 05/25/22 16:16 98.2 F 86 18 126/75 05/25/22 14:52 83 17 130/82 05/25/22 14:13 84 17 130/76 05/25/22 13:42 98.2 F 79 17 131/75 05/25/22 13:15 85 16 136/78 05/25/22 12:43 89 16 144/81 05/25/22 11:48 112 H 20 05/25/22 11:26 98.0 F 125 H 24 141/77 Pulse Ox 05/26/22 10:00 93 L 05/26/22 09:51 94 L 05/26/22 08:59 93 L 05/26/22 04:00 95 05/26/22 02:00 05/26/22 00:00 95 05/25/22 20:00 98 05/25/22 18:54 95 05/25/22 17:39 97 05/25/22 16:16 96 05/25/22 14:52 94 L 05/25/22 14:13 93 L 05/25/22 13:42 95 05/25/22 13:15 94 L 05/25/22 12:43 94 L 05/25/22 11:48 05/25/22 11:26 98 Intake and Output 05/25/22 05/26/22 05/26/22 22:59 06:59 14:59 Intake Total 93.447 520 Output Total 10 Balance 93.447 510 Intake: IV 520 0.9 20 Intake, IV Titration 93.447 Amount Heparin Sod,Pork in 0.45% 93.447 NaCl 25,000 unit In 0.45 % NaCl 1 250ml.bag @ 7.8 UNITS/KG/HR 9.906 mls/hr IV .Q24H ROHIT Rx#: [id number] Output: Urine 10 Other: Voiding Method Toilet Toilet # Voids 1 1 0 Weight 127.006 kg No acute distress, oriented 3. Obese white female. Currently on 2 L of oxygen. HEENT examination is grossly unremarkable. Neck supple. Full range of motion. No adenopathy thyromegaly or neck vein d istention. Cardiovascular examination reveals regular rhythm rate. S1-S2 normal. No S3 or S4. No discernible murmur noted. Heart rate is 92 bpm. Heart sounds are distant. Lungs reveal clear breath sounds. Breath sounds are equal bilaterally. No adventitious lung sounds including wheezes rhonchi or crackles. 2 L saturation is 94%. Abdomen soft bowel sounds are heard. No masses or tenderness. Extremities are intact. No cyanosis clubbing or edema. Skin is without rash or lesion. Neurologic examination is brief but nonfocal. Results - Laboratory Findings CBC and BMP: 05/25/22 11:58 05/26/22 09:27 PT/INR, D-dimer PT 10.2 sec (9.0-12.0) 05/25/22 20:29 INR 1.0 (<1.2) 05/25/22 20:29 Abnormal lab findings: Abnormal Labs 05/25/22 05/25/22 05/25/22 11:58 11:58 15:23 APTT Carbon Dioxide BUN 23 H Creatinine 1.23 H Glucose 270 H POC Glucose (mg/dL) Troponin I 0.118 H* 0.608 H* 05/25/22 05/25/22 05/25/22 17:18 18:32 18:52 APTT Carbon Dioxide BUN Creatinine Glucose POC Glucose (mg/dL) 299 H 278 H Troponin I 0.872 H* 05/26/22 05/26/22 05/26/22 04:34 05:59 09:03 APTT 38.7 H Carbon Dioxide BUN Creatinine Glucose POC Glucose (mg/dL) 145 H 179 H Troponin I 05/26/22 09:27 APTT Carbon Dioxide 21 L BUN 27 H Creatinine 1.25 H Glucose 192 H POC Glucose (mg/dL) Troponin I - Diagnostic Findings Chest x-ray: image reviewed Assessment and Plan Assessment: Acute non-ST segment elevation myocardial infarction, with known history of CAD, and PCI with previous stents 6. History of previous myocardial infarction, 2. History of hypertension. Hyperlipidemia. Diabetes mellitus. Chronic kidney disease. Obesity. Lifelong nonsmoker. Plan: Plan dated 05/26/2022. The patient is seen in the intensive care unit, room 256. She was just seen by cardiothoracic surgery. Pulmonary function tests have been ordered but not completed. The patient's currently on 2 L of oxygen. The patient's receiving IV nitroglycerin at 10 mcg/m, and IV heparin. Labs, x-rays, medications are reviewed. She is a lifelong nonsmoker and appears not to have any lung issues we will await the PFTs. We will continue to follow along and make recommendations were appropriate. Prognosis is guarded. Time with Patient: Greater than 30
--- NOTE | 2022-05-26 11:06 | US ---
EXAMINATION TYPE: US carotid duplex BILAT DATE OF EXAM: 05/26/2022 COMPARISON: NONE CLINICAL HISTORY: preop cardiac surgery. open heart surgery TECHNIQUE: Carotid duplex ultrasound examination. Indirect Doppler criteria was utilized. 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 Criteria for Assigning % of Stenosis / Diameter reduction (Estimation based on the indirect measurements of the internal carotid artery velocities (ICA PSV). 1. Normal (no stenosis)=ICA PSV < 125 cm/s: ratio < 2.0: ICA EDV<40 cm/s. 2. Less than 50% stenosis=ICA PSV < 125 cm/s: ratio < 2.0: ICA EDV<40 cm/s. 3. 50 to 69% stenosis=ICA PSV of 125 to 230 cm/s: ration 2.0 ? 4.0: ICA EDV 40-100 cm/s. 4. Greater than 70% stenosis to near occlusion= ICA PSV > 230 cm/s: ratio > 4.0: ICA EDV > 100 cm/s. 5. Near occlusion= ICA PSV velocities may be low or undetectable: variable ratio and ICA EDV. 6. Total occlusion=unable to detect flow.
[2022-05-26 11:22] LABS: Basophils % (A) 1 %; Eosinophils # (A) 0.1 k/uL (0-0.7); Eosinophils % (A) 1 %; HCT 43.9 % (34.0-46.0); HGB 14.1 gm/dL (11.4-16.0); Lymphocytes # (A) 1.1 k/uL (1.0-4.8); Lymphocytes % (A) 14 %; MCHC 32.1 g/dL (31.0-37.0); MCV 93.5 fL (80.0-100.0); Mean Platelet Volume 10.7; Monocytes # (A) 0.3 k/uL (0-1.0); Monocytes % (A) 4 %; Neutrophils # (A) 6.5 k/uL (1.3-7.7); Neutrophils % (A) 80 %; Platelet Count 143 k/uL (150-450); RDW 13.5 % (11.5-15.5); WBC 8.2 k/uL (3.8-10.6)
[2022-05-26 11:30] LABS: Partial Thromboplastin Time 40.6 sec (22.0-30.0); Prothrombin Time 10.4 sec (9.0-12.0)
[2022-05-26 11:52] LABS: Appearance,Urine Clear (Clear); Bacteria,Urine Rare /hpf; Bilirubin,Urine Negative (Negative); Blood,Urine Negative (Negative); Color,Urine Colorless; Glucose,Urine (UA) Negative (Negative); Hyaline Casts,Urine 1 /lpf (0-2); Ketones,Urine Negative (Negative); Leukocyte Esterase,Urine Moderate (Negative); Nitrite,Urine Negative (Negative); Protein,Urine Negative (Negative); RBC,Urine 1 /hpf (0-5); Specific Gravity,Urine 1.012 (1.001-1.035); Urobilinogen,Urine <2.0 mg/dL (<2.0); WBC,Urine 3 /hpf (0-5)
[2022-05-26] MEDS ORDERED: NITROGLYCERIN-D5W PMX 50 MG in DEXTROSE/WATER 1 250ML.BAG IV SCH ×2 (12:15→13:29)
--- NOTE | 2022-05-26 13:32 | PN ---
PROGRESS NOTE SUBJECTIVE: This is a 77-year-old lady with morbid obesity, type 2 diabetes mellitus, hypertension, hyperlipidemia, and CAD with previous stenting of LAD as well as multiple stents of RCA, the last one in June of 2018. She came into the hospital with chest pain and elevated blood pressure and heart rate, had [id number] NE and underwent cardiac catheterization today. Catheterization revealed a total occlusion of RCA which is filling from collaterals mostly from the LAD and also to some extent from the circumflex. The main trunk of RCA is also visualized. LAD has at least a 60% to 70% lesion within the stented area, and there is a diagonal branch which is small but significant disease. Circumflex marginal also has a significant disease. The left ventricular end-diastolic pressure is elevated to 30 mmHg. This information makes her a very high-risk candidate for percutaneous coronary intervention. She already had 3 interventions on the RCA, and now, we are dealing with the total occlusion. For complete revascularization, I would recommend aortocoronary bypass surgery. I am requesting Dr. Krause to perform a JESUS tomorrow. We will place her on a heparin drip, increase the nitroglycerin drip, continue her other medications, and check CBC and BMP. Overall prognosis looks poor. She is a poor candidate from a surgical standpoint also. However, they will do some imaging of the veins to see if she has any conduits. Dr. Hunt has already seen her and is awaiting further information before making a determination. Overall prognosis is poor. We will continue to watch her carefully in the ICU. 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 However, we will do a JESUS tomorrow to assess mitral valve and then make further recommendations. Prognosis remains guarded. OBJECTIVE: VITAL SIGNS: Stable. Blood pressure is 140/70, pulse rate is about 76. NECK: JVD 1 cm. No carotid bruit. HEART: S1 and S2 heard distantly. Short systolic murmur. LUNGS: Reveal decent air entry ABDOMEN: Soft. EXTREMITIES: Lower extremities reveal diminished pulses. CENTRAL NERVOUS SYSTEM: Grossly within normal limits. MMODL / IJN: [id number] /
--- NOTE | 2022-05-26 17:48 | P.PN ---
Progress Note - Text Progress Note Date: 05/26/22 Chief Complaint: Chest pain This is a pleasant 76-year-old patient who follows with Dr. Miller. Yarn Salvager Dr. Krause. Chronic stable medical conditions include diabetes, hypertension, hyperlipidemia, CAD with stent 5 in 2019. Patient was admitted here in March with CHF exacerbation. Patient states that she's had chest pain on and off for some time. Close to a year ago patient did have a stress test as well as negative. Patient was scheduled to have another stress test. Presented today with much increasing chest pain. The normal. Nitroglycerin has sometimes other times not. No shortness of breath no fever or chills no cough. Patient has chronic lower extremity edema. Patient is described pain as all over the chest. No dizziness no lightheadedness. No radiation. May 26: Underwent cardiac catheterization this morning by Dr. Salazar. Was found to have three-vessel CAD with chronically occluded RCA, with [id number] collaterals, patent stents and a possibly plaque rupture in the LAD and significant stenosis involving the ostial OM. And the diagonal branches. Dr. Hunt from cardiothoracic surgery evaluated the patient for three-vessel bypass. Patient was concerned about her findings. Had a lengthy discussion with the patient. And reassured about the findings in terms of treatment and outcomes. She feels better. On IV heparin. Active Medications Acetaminophen (Acetaminophen Tab 325 Mg Tab) 650 mg PO Q6HR PRN PRN Reason: Mild Pain or Fever > 100.5 Alprazolam (Alprazolam 0.25 Mg Tab) 0.25 mg PO Q6HR PRN PRN Reason: Mild Anxiety Alprazolam (Alprazolam 0.5 Mg Tab) 0.5 mg PO Q6HR PRN PRN Reason: Moderate Anxiety Amlodipine Besylate (Amlodipine 10 Mg Tab) 10 mg PO DAILY [facility] Last Admin: 05/26/22 06:31 Dose: 10 mg Ascorbic Acid (Ascorbic Acid 500 Mg Tab) 1,000 mg PO DAILY [facility] Last Admin: 05/26/22 06:30 Dose: 1,000 mg Aspirin (Aspirin 325 Mg Tab) 325 mg PO DAILY [facility] Last Admin: 05/26/22 09:12 Dose: Not Given Benzocaine/Menthol (Benzocaine/Menthol Lozeng 1 Each Lozenge) 1 each MUCOUS MEM Q4HR PRN PRN Reason: cough Calcium Carbonate/Glycine (Calcium Carbonate 500 Mg Chewable) 1,000 mg PO Q4HR PRN PRN Reason: Dyspepsia Clopidogrel Bisulfate (Clopidogrel 75 Mg Tab) 75 mg PO DAILY [facility] Last Admin: 05/26/22 06:30 Dose: 75 mg Cyanocobalamin (Cyanocobalamin 500 Mcg Tab) 500 mcg PO DAILY [facility] Last Admin: 05/26/22 06:30 Dose: 500 mcg Ergocalciferol (Ergocalciferol 1,250 Mcg (50,000 Iu) Capsule) 1,250 mcg PO SAMUELS [facility] Heparin Sodium (Porcine) (Heparin Sodium 1,000 Un/Ml (10ml Vl)) 0 unit IV PER PROTOCOL PRN; Protocol PRN Reason: Low PTT Last Admin: 05/26/22 11:56 Dose: 3,175 unit Heparin Sodium (Porcine) 10, (000 unit/ Sodium Chloride) 1,001 mls @ 999 mls/hr IRRIGATION ONCE PRN PRN Reason: INTRA-OP Stop: 05/26/22 23:00 Heparin Sodium (Porcine) 2,500 (unit/ Sodium Chloride) 250.5 mls @ 250 mls/hr IRRIGATION ONCE PRN PRN Reason: INTRA-OP Stop: 05/26/22 23:00 Sodium Chloride (Saline 0.9%) 1,000 mls @ 75 mls/hr IV .[id number] [facility] Last Admin: 05/26/22 06:37 Dose: Not Given Heparin Sodium/Sodium Chloride (25,000 unit/ Sodium Chloride) 250 mls @ 13.71 mls/hr IV .[id number] [facility]; Protocol Last Titration: 05/26/22 11:52 Dose: 1,625 units/hr, 16.25 mls/hr Insulin Aspart (Insuln Asp Prt/Insulin Aspart 100 Unit/Ml 10 Ml Vial) 35 unit SQ AC-BID [facility] Last Admin: 05/26/22 10:17 Dose: 35 unit Lactulose (Lactulose 20 Gm/30 Ml Cup) 20 gm PO DAILY PRN PRN Reason: Constipation Lisinopril (Lisinopril 20 Mg Tab) 40 mg PO HS [facility] Last Admin: 05/25/22 21:41 Dose: 40 mg Magnesium Oxide (Magnesium Oxide 400 Mg Tab) 400 mg PO DAILY [facility] Last Admin: 05/26/22 06:30 Dose: 400 mg Melatonin (Melatonin 3 Mg Tablet) 3 mg PO HS PRN PRN Reason: Insomnia Metoprolol Succinate (Metoprolol Succinate (Er) 25 Mg Tab.Er.24h) 25 mg PO DAILY [facility] Last Admin: 05/26/22 06:31 Dose: 25 mg Miscellaneous Information (Rx Info: Iv Contrast Was Given 1 Each Misc) 1 each MISCELLANE DAILY PRN PRN Reason: Per Protocol Stop: 05/28/22 08:37 Naloxone HCl (Naloxone 0.4 Mg/Ml 1 Ml Vial) 0.2 mg IV Q2M PRN PRN Reason: Opioid Reversal Nitroglycerin (Nitroglycerin Sl Tabs 0.4 Mg Tab) 0.4 mg SUBLINGUAL Q5M PRN PRN Reason: Chest Pain Non-Formulary Medication (Acetylcysteine [Nac]) 600 mg PO DAILY [facility] Last Admin: 05/26/22 10:33 Dose: Not Given Ondansetron HCl (Ondansetron 4 Mg/2 Ml Vial) 4 mg IVP Q8HR PRN PRN Reason: Nausea And Vomiting Zinc Sulfate (Zinc Sulfate 220 Mg Cap) 220 mg PO DAILY [facility] Last Admin: 05/26/22 06:31 Dose: 220 mg Past medical history to include: Diabetes, hypertension, hyperlipidemia, CA in 2010, CAD with stent in 2019 Social history: . No smoking or alcohol Physical examination: VITAL SIGNS: 97.8, 92, 24, 101/62, 95% on 2 L GENERAL: BMI 51.2, up in a chair EYES: Pupils equal. Conjunctiva normal. HEENT: External appearance of nose and ears normal, oral cavity grossly normal. NECK: JVD not raised; masses not palpable. HEART: First and second heart sounds are normal; some edema. LUNGS: Respiratory rate increased; decreased breath sound. ABDOMEN: Soft, nontender, liver spleen not palpable, no masses palpable. PSYCH: Alert and oriented x3; mood and affect normal. MUSCULOSKELETAL:No Clubbing/cyanosis;muscles-grossly intact. OA INVESTIGATIONS, reviewed in the clinical context: 2-D echocardiogram [May 26] EF 35-40%. Wall motion abnormality. May 26: White count 8.2 hemoglobin 14.1 platelets 143 potassium 5.1 BUN 27 creatinine 1.25 HbA1c 6.5 TSH 1.6 EKG tracing personally reviewed by me-sinus tachycardia. ST-T wave changes. Across. Chest x-ray film personally reviewed by me-cardiomegaly. Prominent pulmonary artery WBC 8.3 hemoglobin 14.5 platelets 172 sodium 137 potassium 4.9 BUN 23 creatinine 1.23, Troponin I 0.0118, 0.608 Assessment and plan: -Acute non-Q-wave CA. Known CAD. Aspirin, IV heparin, beta darian, nitroglycerin drip. -3-vessel CAD with chronically occluded RCA, with [id number] collaterals, patent stents and a possibly plaque rupture in the LAD and significant stenosis involving the ostial OM. And the diagonal branches Aspirin, Toprol-XL, Zestril, Lipitor -IV heparin monitoring, follow PTT -chronic congestive diastolic heart failure of systolic dysfunction, EF 35-40%, ischemic cardiomyopathy Lasix Aldactone-held for now -Diabetes mellitus type 2, chronically on insulin Humalog mix 75/25 twice a day follow Accu-Cheks with sliding scale -Essential hypertension Toprol-XL, Vasotec amlodipine -Acute kidney injury, likely prerenal. Creatinine was 0.98 on 03/21/2022. Today 1.23. Hold diuretics. IV fluids. -Morbid obesity BMI 51.2 Weight loss measures. Follow with PCP. Discussed at length with the patient. Cardiothoracic surgery being of further workup. For bypass. Questions answered. Total time spent today more than 50 m inutes.
[2022-05-26 18:33] LABS: Glucose,Whole Blood 229 mg/dL (70-110)
--- NOTE | 2022-05-26 19:11 | US ---
EXAMINATION TYPE: US vein mapping [facility] DATE OF EXAM: 05/26/2022 10:46 AM COMPARISON: NONE CLINICAL HISTORY: preop cardiac surgery. Open heart has 6 stents. SIDE PERFORMED: Bilateral TECHNIQUE: Lower extremity saphenous vein is examined and measured utilizing real time linear array sonography. Patient History: Smoker: No Heart Disease: Yes Previous DVT: No Vascular Surgery: Yes Discoloration: No Hypertension: Yes Diabetes: Yes Paralysis: No Varicosities: Yes Edema: Yes DUPLEX FINDINGS: Greater Saphenous: Color flow seen Lesser Saphenous: Color flow seen Measurements in mm: Right Greater Saphenous: Groin: 8.9 x 5.5 mm High Thigh: 8.4 x 4.6 mm Mid Thigh: 8.3 x 6.0 mm Above Knee: 6.4 x 5.2 mm Knee: 6.0 x 4.9 mm Below Knee: 6.1 x 5.0 mm Mid Calf: 5.5 x 2.8 mm At Ankle: 3.6 x 3.7 mm Left Greater Saphenous: Groin: 8.4 x 8.5 mm High Thigh: 7.1 x 5.7 mm Mid Thigh: 4.6 x 2.4 mm Above Knee: 2.8 x 2.3 mm Knee: 4.2 x 2.3 mm Below Knee: 3.0 x 2.0 mm Mid Calf: 2.2 x 1.7 mm At Ankle: 3.1 x 2.3 mm No thrombosis of the bilateral greater saphenous veins. IMPRESSION: 1. Bilateral GSV measurements listed above. 2. Performing surgeon to determine viability as conduit.
--- NOTE | 2022-05-26 19:13 | US ---
EXAMINATION TYPE: Pre-Operative Non-Invasive Evaluation of the hand for Potential Radial Artery Shelly duff, Measurements only DATE OF EXAM: 05/26/2022 10:46 AM CLINICAL HISTORY: measurements only. open heart SIDE PERFORMED: Left TECHNIQUE: Radial artery is measured utilizing real time linear array sonography. Duplex Findings: Radial Artery: Color flow seen Measurements in mm, transverse view: Left Radial: Proximal: 2.2 x 1.4 mm Mid: 2.8 x 2.4 mm Distal: 4.0 x 2.6 mm Left radial artery is patent with biphasic flow. IMPRESSION: Left radial artery measurements listed above.
[2022-05-26] MEDS: lisinopriL 20 MG TAB PO SCH (20:07)
[2022-05-27] MEDS: HEPARIN SOD,PORK IN 0.45% NACL 25,000 UNIT in 0.45% NACL 1 250ML.BAG IV SCH ×2 (00:55→17:27)
[2022-05-27 05:17] LABS: Basophils % (A) 0 %; Eosinophils # (A) 0.3 k/uL (0-0.7); Eosinophils % (A) 2 %; HCT 43.2 % (34.0-46.0); HGB 14.7 gm/dL (11.4-16.0); Lymphocytes # (A) 2.2 k/uL (1.0-4.8); Lymphocytes % (A) 22 %; MCH 31.2 pg (25.0-35.0); MCHC 34.1 g/dL (31.0-37.0); MCV 91.4 fL (80.0-100.0); Mean Platelet Volume 10.5; Monocytes # (A) 0.5 k/uL (0-1.0); Monocytes % (A) 5 %; Neutrophils # (A) 6.9 k/uL (1.3-7.7); Neutrophils % (A) 68 %; Platelet Count 159 k/uL (150-450); RBC 4.73 m/uL (3.80-5.40); RDW 13.9 % (11.5-15.5); WBC 10.1 k/uL (3.8-10.6)
[2022-05-27 05:25] LABS: Prothrombin Time 10.5 sec (9.0-12.0)
[2022-05-27 06:08] LABS: Calcium 8.8 mg/dL (8.4-10.2); Potassium 4.5 mmol/L (3.5-5.1)
[2022-05-27 06:35] LABS: Glucose,Whole Blood 77 mg/dL (70-110)
[2022-05-27] MEDS: SODIUM CHLORIDE 0.9% 1,000 ML IV SCH (08:26)
[2022-05-27] MEDS: INSULN ASP PRT/INSULIN ASPART 100 UNIT/ML 10 ML VIAL SQ SCH ×2 (08:26→17:28)
[2022-05-27] MEDS: NON FORMULARY DRUG (Acetylcysteine [Nac] 600 MG Tablet) PO SCH (08:54)
[2022-05-27] MEDS: amLODIPine 10 MG TAB PO SCH (09:02)
[2022-05-27] MEDS: MAGNESIUM OXIDE 400 MG TAB PO SCH (09:02)
[2022-05-27] MEDS: CYANOCOBALAMIN 500 MCG TAB PO SCH (09:02)
[2022-05-27] MEDS: METOPROLOL SUCCINATE (ER) 25 MG TAB.ER.24H PO SCH (09:02)
[2022-05-27] MEDS: ASCORBIC ACID 500 MG TAB PO SCH (09:03)
[2022-05-27] MEDS: ZINC SULFATE 220 MG CAP PO SCH (09:03)
[2022-05-27 09:20] LABS: Glucose,Whole Blood 146 mg/dL (70-110)
[2022-05-27] MEDS: ASPIRIN 325 MG TAB PO SCH (10:38)
[2022-05-27] MEDS: CLOPIDOGREL 75 MG TAB PO SCH (10:38)
--- NOTE | 2022-05-27 10:57 | P.PN ---
Subjective Progress Note Date: 05/27/22 Principal diagnosis: Chest pain. Pulmonary consult dated 05/26/2022. 77-year-old female with history of multiple medical problems including coronary disease, previous myocardial infarction, multiple stent placements, hypertension, hyperlipidemia, diabetes, and chronic kidney disease. The patient has had 6 cardiac stents in the past. Minute to the hospital, with chest pain, on May 25, and was found to have a non-ST segment elevation myocardial infarction. She's currently being evaluated by cardiothoracic surgery for bypass grafting. She's currently in the ICU at room 256. The patient is on 2 L of oxygen. Receiving IV nitroglycerin at 10 mcg/m, and IV heparin via weightbase protocol. The patient's also receiving saline at KVO. The patient is scheduled to have a bedside spirometry. She has just been evaluated by cardiothoracic surgery. Current labs include a sodium 137, potassium 5.1, chlorides 106, CO2 21, BUN 27 creatinine 1.25. Thyroid function is normal. Chest x-ray is positive for cardiomegaly, and possible chronic interstitial lung disease. Progress note dated 05/27/2022. 77-year-old female seen yesterday in consultation. She seen again today in the intensive care unit, room 256. It was decided by surgery, the patient was not a good surgical candidate for bypass procedure. Hence, the patient will be treated medically. She's currently on 2 L of oxygen. She is receiving IV heparin. She is getting saline at 75 mL per hour. White count 10.1, hemoglobin 14.7, hematocrit 43.2, and platelet count was normal. PTT was 70.6. Sodium 13 9, potassium 4.5, chlorides 106, CO2 29, BUN 27, and creatinine 1.27. Objective - Vital Signs Vital signs: Vital Signs Temp 97.8 F 05/27/22 08:00 Pulse 82 05/27/22 09:00 Resp 17 05/27/22 09:00 BP 124/73 05/27/22 09:00 Pulse Ox 95 05/27/22 09:00 FiO2 Intake & Output 05/26/22 05/27/22 05/27/22 18:59 06:59 18:59 Intake Total 158.017 8641.063 225 Output Total 1410 725 200 Balance -447.004 387.063 25 Weight 131.1 kg Intake: IV 860 900 225 0.9 360 900 225 Intake, IV Titration 102.996 212.063 Amount Heparin Sod,Pork in 0.45% 35.646 212.063 NaCl 25,000 unit In 0.45 % NaCl 1 250ml.bag @ 13. 71 mls/hr IV .[id number] [facility] Rx#:[id number] Nitroglycerin-D5w Pmx 50 67.35 mg In Dextrose/Water 1 250ml.bag @ 20 MCG/MIN 6 mls/hr IV .Q24H ONE Rx#: [id number] Output: Urine 1410 725 200 Other: Voiding Method Bedside Commode Bedside Commode Bedside Commode # Voids 0 - Exam No acute distress, oriented 3. Obese white female. Currently on 2 L of oxygen. HEENT examination is grossly unremarkable. Neck supple. Full range of motion. No adenopathy thyromegaly or neck vein distention. Cardiovascular examination reveals regular rhythm rate. S1-S2 normal. No S3 or S4. No discernible murmur noted. Heart rate is 88 bpm. Heart sounds are distant. Lungs reveal clear breath sounds. Breath sounds are equal bilaterally. No adventitious lung sounds including wheezes rhonchi or crackles. 2 L saturation is 96 %. Abdomen soft bowel sounds are heard. No masses or tenderness. Extremities are intact. No cyanosis clubbing or edema. Skin is without rash or lesion. Neurologic examination is brief but nonfocal. - Labs CBC & Chem 7: 05/27/22 05:04 05/27/22 05:04 Labs: Abnormal Lab Results - Last 24 Hours (Table) 05/26/22 05/26/22 05/26/22 Range/Units 10:58 10:58 10:58 Plt Count 143 L (150-450) k/uL APTT 40.6 H (22.0-30.0) sec BUN (7-17) mg/dL Creatinine (0.52-1.04) mg/dL Glucose (74-99) mg/dL POC Glucose (mg/dL) (70-110) mg/dL Hemoglobin A1c 6.5 H (0.0-6.0) % Ur Leukocyte Esterase (Negative) Urine Bacteria (None) /hpf 05/26/22 05/26/22 05/26/22 Range/Units 11:15 18:31 18:46 Plt Count (150-450) k/uL APTT 71.9 H (22.0-30.0) sec BUN (7-17) mg/dL Creatinine (0.52-1.04) mg/dL Glucose (74-99) mg/dL POC Glucose (mg/dL) 229 H (70-110) mg/dL Hemoglobin A1c (0.0-6.0) % Ur Leukocyte Esterase Moderate H (Negative) Urine Bacteria Rare H (None) /hpf 05/27/22 05/27/22 05/27/22 Range/Units 05:04 09:07 09:19 Plt Count (150-450) k/uL APTT 70.6 H (22.0-30.0) sec BUN 27 H (7-17) mg/dL Creatinine 1.27 H (0.52-1.04) mg/dL Glucose 63 L (74-99) mg/dL POC Glucose (mg/dL) 146 H (70-110) mg/dL Hemoglobin A1c (0.0-6.0) % Ur Leukocyte Esterase (Negative) Urine Bacteria (None) /hpf Microbiology - Last 24 Hours (Table) 05/26/22 09:37 Nasal Screen MRSA/MSSA - Preliminary Nasal Swab Assessment and Plan Assessment: Acute non-ST segment elevation myocardial infarction, with known history of CAD, and PCI with previous stents 6. History of previous myocardial infarction, 2. History of hypertension. Hyperlipidemia. Diabetes mellitus. Chronic kidney disease. Obesity. Lifelong nonsmoker. Plan: Plan dated 05/26/2022. The patient is seen in the intensive care unit, room 256. She was just seen by cardiothoracic surgery. Pulmonary function tests have been ordered but not completed. The patient's currently on 2 L of oxygen. The patient's receiving IV nitroglycerin at 10 mcg/m, and IV heparin. Labs, x-rays, medications are reviewed. She is a lifelong nonsmoker and appears not to have any lung issues we will await the PFTs. We will continue to follow along and make recommendations were appropriate. Prognosis is guarded. Plan dated 05/27/2022. The patient is seen again in the intensive care unit. She's in room 256. She had an uneventful night. She remains on 2 L of oxygen. She's getting saline at 75 mL an hour, and IV heparin via protocol. The patient was to determine yester day by thoracic surgery cannot be a surgical candidate. The patient is okay with that. The patient can be transferred to the stepdown unit. Additional recommendations and suggestions are forthcoming. Prognosis is guarded. Time with Patient: Less than 30
[2022-05-27 11:49] LABS: Glucose,Whole Blood 110 mg/dL (70-110)
[2022-05-27] MEDS ORDERED: FUROSEMIDE 10 MG/ML 4 ML VIAL IV STA (16:49)
[2022-05-27 17:26] LABS: Glucose,Whole Blood 148 mg/dL (70-110)
--- NOTE | 2022-05-27 17:31 | P.PN ---
Progress Note - Text Progress Note Date: 05/27/22 Chief Complaint: Chest pain This is a pleasant 76-year-old patient who follows with Dr. Miller. Court Officer Dr. Krause. Chronic stable medical conditions include diabetes, hypertension, hyperlipidemia, CAD with stent 5 in 2019. Patient was admitted here in March with CHF exacerbation. Patient states that she's had chest pain on and off for some time. Close to a year ago patient did have a stress test as well as negative. Patient was scheduled to have another stress test. Presented today with much increasing chest pain. The normal. Nitroglycerin has sometimes other times not. No shortness of breath no fever or chills no cough. Patient has chronic lower extremity edema. Patient is described pain as all over the chest. No dizziness no lightheadedness. No radiation. May 26: Underwent cardiac catheterization this morning by Dr. Salazar. Was found to have three-vessel CAD with chronically occluded RCA, with [id number] collaterals, patent stents and a possibly plaque rupture in the LAD and significant stenosis involving the ostial OM. And the diagonal branches. Dr. Hunt from cardiothoracic surgery evaluated the patient for three-vessel bypass. Patient was concerned about her findings. Had a lengthy discussion with the patient. And reassured about the findings in terms of treatment and outcomes. She feels better. On IV heparin. May 27: Up in a chair. Had a small episode of chest pain today. Remains on IV heparin. Per cardiothoracic team: Recommend angioplasty. If not then recommends JESUS to look anatomy will closely.. Active Medications Acetaminophen (Acetaminophen Tab 325 Mg Tab) 650 mg PO Q6HR PRN PRN Reason: Mild Pain or Fever > 100.5 Alprazolam (Alprazolam 0.25 Mg Tab) 0.25 mg PO Q6HR PRN PRN Reason: Mild Anxiety Alprazolam (Alprazolam 0.5 Mg Tab) 0.5 mg PO Q6HR PRN PRN Reason: Moderate Anxiety Amlodipine Besylate (Amlodipine 10 Mg Tab) 10 mg PO DAILY [facility] Last Admin: 05/27/22 09:02 Dose: 10 mg Ascorbic Acid (Ascorbic Acid 500 Mg Tab) 1,000 mg PO DAILY [facility] Last Admin: 05/27/22 09:03 Dose: 1,000 mg Aspirin (Aspirin 325 Mg Tab) 325 mg PO DAILY [facility] Last Admin: 05/27/22 10:38 Dose: 325 mg Benzocaine/Menthol (Benzocaine/Menthol Lozeng 1 Each Lozenge) 1 each MUCOUS MEM Q4HR PRN PRN Reason: cough Calcium Carbonate/Glycine (Calcium Carbonate 500 Mg Chewable) 1,000 mg PO Q4HR PRN PRN Reason: Dyspepsia Clopidogrel Bisulfate (Clopidogrel 75 Mg Tab) 75 mg PO DAILY [facility] Last Admin: 05/27/22 10:38 Dose: 75 mg Cyanocobalamin (Cyanocobalamin 500 Mcg Tab) 500 mcg PO DAILY [facility] Last Admin: 05/27/22 09:02 Dose: 500 mcg Ergocalciferol (Ergocalciferol 1,250 Mcg (50,000 Iu) Capsule) 1,250 mcg PO SAMUELS [facility] Heparin Sodium (Porcine) (Heparin Sodium 1,000 Un/Ml (10ml Vl)) 0 unit IV PER PROTOCOL PRN; Protocol PRN Reason: Low PTT Last Admin: 05/26/22 11:56 Dose: 3,175 unit Sodium Chloride (Saline 0.9%) 1,000 mls @ 20 mls/hr IV .Q24H [facility] Last Admin: 05/27/22 08:26 Dose: Not Given Heparin Sodium/Sodium Chloride (25,000 unit/ Sodium Chloride) 250 mls @ 13.71 mls/hr IV .[id number] [facility]; Protocol Last Admin: 05/27/22 17:27 Dose: 1,625 units/hr, 16.25 mls/hr Insulin Aspart (Insuln Asp Prt/Insulin Aspart 100 Unit/Ml 10 Ml Vial) 35 unit SQ AC-BID [facility] Last Admin: 05/27/22 17:28 Dose: Not Given Lactulose (Lactulose 20 Gm/30 Ml Cup) 20 gm PO DAILY PRN PRN Reason: Constipation Lisinopril (Lisinopril 20 Mg Tab) 40 mg PO HS [facility] Last Admin: 05/26/22 20:07 Dose: 40 mg Magnesium Oxide (Magnesium Oxide 400 Mg Tab) 400 mg PO DAILY [facility] Last Admin: 05/27/22 09:02 Dose: 400 mg Melatonin (Melatonin 3 Mg Tablet) 3 mg PO HS PRN PRN Reason: Insomnia Metoprolol Succinate (Metoprolol Succinate (Er) 25 Mg Tab.Er.24h) 25 mg PO DAILY [facility] Last Admin: 05/27/22 09:02 Dose: 25 mg Miscellaneous Information (Rx Info: Iv Contrast Was Given 1 Each Misc) 1 each MISCELLANE DAILY PRN PRN Reason: Per Protocol Stop: 05/28/22 08:37 Naloxone HCl (Naloxone 0.4 Mg/Ml 1 Ml Vial) 0.2 mg IV Q2M PRN PRN Reason: Opioid Reversal Nitroglycerin (Nitroglycerin Sl Tabs 0.4 Mg Tab) 0.4 mg SUBLINGUAL Q5M PRN PRN Reason: Chest Pain Non-Formulary Medication (Acetylcysteine [Nac]) 600 mg PO DAILY [facility] Last Admin: 05/27/22 08:54 Dose: Not Given Ondansetron HCl (Ondansetron 4 Mg/2 Ml Vial) 4 mg IVP Q8HR PRN PRN Reason: Nausea And Vomiting Zinc Sulfate (Zinc Sulfate 220 Mg Cap) 220 mg PO DAILY [facility] Last Admin: 05/27/22 09:03 Dose: 220 mg Past medical history to include: Diabetes, hypertension, hyperlipidemia, SD in 2010, CAD with stent in 2019 Social history: . No smoking or alcohol Physical examination: VITAL SIGNS: 97.2, 71, 18, 106/48, 95% room air GENERAL: BMI 51.2, up in a chair EYES: Pupils equal. Conjunctiva normal. HEENT: External appearance of nose and ears normal, oral cavity grossly normal. NECK: JVD not raised; masses not palpable. HEART: First and second heart sounds are normal; some edema. LUNGS: Respiratory rate increased; decreased breath sound. ABDOMEN: Soft, nontender, liver spleen not palpable, no masses palpable. PSYCH: Alert and oriented x3; mood and affect normal. MUSCULOSKELETAL:No Clubbing/cyanosis;muscles-grossly intact. OA INVESTIGATIONS, reviewed in the clinical context: May 27: White count 10.1 hemoglobin 14.7 platelets. 9 potassium 4.5. 27 creatinine 1.27 2-D echocardiogram [May 26] EF 35-40%. Wall motion abnormality. May 26: White count 8.2 hemoglobin 14.1 platelets 143 potassium 5.1 BUN 27 creatinine 1.25 HbA1c 6.5 TSH 1.6 EKG tracing personally reviewed by me-sinus tachycardia. ST-T wave changes. Across. Chest x-ray film personally reviewed by me-cardiomegaly. Prominent pulmonary artery WBC 8.3 hemoglobin 14.5 platelets 172 sodium 137 potassium 4.9 BUN 23 creatinine 1.23, Troponin I 0.0118, 0.608 Assessment and plan: -Acute non-Q-wave SD. Known CAD. Aspirin, IV heparin, beta darian, nitroglycerin drip. -3-vessel CAD with chronically occluded RCA, with [id number] collaterals, patent stents and a possibly plaque rupture in the LAD and significant stenosis involving the ostial OM. And the diagonal branches: Slow to respond Aspirin, Toprol-XL, Zestril, Lipitor -IV heparin monitoring, follow PTT -chronic congestive diastolic heart failure of systolic dysfunction, EF 35-40%, ischemic cardiomyopathy Lasix Aldactone-held for now -Diabetes mellitus type 2, chronically on insulin Humalog mix 75/25 twice a day follow Accu-Cheks with sliding scale -Essential hypertension Toprol-XL, Vasotec amlodipine -Acute kidney injury, likely prerenal. Creatinine was 0.98 on 03/21/2022. . Hold diuretics. -Morbid obesity BMI 51.2 Weight loss measures. Follow with PCP. Discussed. Continue current medications.
[2022-05-27] MEDS: lisinopriL 20 MG TAB PO SCH (21:45)
--- NOTE | 2022-05-27 23:27 | P.CRDCN ---
History of Present Illness History of present illness: HISTORY OF PRESENTING ILLNESS Patient is pleasant 77-year-old female with history of CAD with prior PCI, diabetes mellitus type 2, obesity, hypertension, hyperlipidemia who presented May 25 with intermittent off and on chest pain or last few years as well as shortness breath. Chest pain Worse in the Prior 24 Hours and Had Presented to the Hospital. Troponins Were Elevated and Patient Underwent Heart Catheterization Which Showed Triple Vessel Disease As Well As CT of the RCA. Her LVEDP was elevated at 30. She was seen by cardiothoracic surgery and felt to be a poor surgical candidate. Echo showed left ventricular ejection fraction 35-40% with mention of severe left ventricular dilation and mild to moderate mitral regurgitation. 05/27/22 Patient seen and examined. Patient admits to mild episode of chest discomfort this morning however did not last that long. She remains on heparin drip. She was recommended to undergo PCI if possible from surgical standpoint and if PCI not a good option recommendations for JESUS. She admits to mild dyspnea. Her LVEDP was elevated. She has been receiving IV fluids however tolerating diet. PHYSICAL EXAMINATION Vital signs reviewed. CONSTITUTIONAL: No apparent distress. HEENT: Head is normocephalic. Pupils are equal, round. Sclerae anicteric. Mucous membranes of the mouth are moist. No JVD. No carotid bruit. CHEST EXAMINATION: Lungs are clear to auscultation. No chest wall tenderness is noted on palpation or with deep breathing. HEART EXAMINATION: Regular rate and rhythm. S1, S2 heard. No murmurs, gallops or rub. ABDOMEN: Soft, nontender. Positive bowel sounds. EXTREMITIES: 2+ peripheral pulses, no lower extremity edema and no calf tenderness. NEUROLOGIC EXAMINATION: Patient is awake, alert and oriented x3. ASSESSMENT 1. Non-STEMI 2. 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 Mild to moderate mitral regurgitation 4. Acute on chronic systolic heart failure 5. Ischemic cardiomyopathy EF 35-40% 6. Diabetes mellitus type 2 7. Hypertension 8. Obesity PLAN Patient with intermittent episodes of chest pain and mildly elevated troponins. Patient felt high risk for surgery and recommendations for PCI if able. If patient not a good PCI candidate recommendations for JESUS to further assess the mitral regurgitation. Patient had elevated LVEDP and we will stop her IV fluids and give dose of Lasix and monitor response. Continue with medical therapy and optimize heart failure regimen as able. Further assessment for possible PCI versus further workup of possible bypass and valve replacement on Sunday. Further recommendations to follow. Past Medical History Past Medical History: Coronary Artery Disease (CAD), Cancer, Chest Pain / Angina, Diabetes Mellitus, Hyperlipidemia, Hypertension, Myocardial Infarction ([place]), Pneumonia Additional Past Medical History / Comment(s): 6 stents placed and 2 heart attacks; uterine cancer 2011 Last Myocardial Infarction Date:: 2018 History of Any Multi-Drug Resistant Organisms: None Reported Past Surgical History: Cholecystectomy, Heart Catheterization With Stent, Hysterectomy, Orthopedic Surgery Additional Past Surgical History / Comment(s): right knee replacement-2017. D&C x 2. History of cardiac stent placement x5. June 2018. last cardiac stent placement. Left leg vein stripping Past Anesthesia/Blood Transfusion Reactions: No Reported Reaction Date of Last Stent Placement:: 2018 Past Psychological History: No Psychological Hx Reported Smoking Status: Never smoker Past Alcohol Use History: None Reported Past Drug Use History: None Reported - Past Family History Mother Family Medical History: CVA/TIA, Myocardial Infarction ([place]) Additional Family Medical History / Comment(s): at 94 years old Father Family Medical History: CVA/TIA Additional Family Medical History / Comment(s): Dietd at 98 years old Brother(s) Family Medical History: Cancer, Coronary Artery Disease (CAD) Additional Family Medical History / Comment(s): Heart disease diagnosed in his 40s Son(s) Family Medical History: No Reported History Daughter(s) Family Medical History: No Reported History Medications and Allergies Home Medications Medication Instructions Recorded Confirmed Type Clopidogrel Bisulfate [Plavix] 75 mg PO DAILY 06/20/18 05/25/22 History Metoprolol Succinate (ER) [Toprol 25 mg PO DAILY 06/20/18 05/25/22 History XL] amLODIPine BESYLATE [Norvasc] 10 mg PO DAILY 06/20/18 05/25/22 History Nitroglycerin Sl Tabs [Nitrostat] 0.4 mg SUBLINGUAL Q5M PRN #25 tab 06/22/18 05/25/22 Rx Insulin Lispro Protamin/Lispro 40 - 55 unit SQ BID 03/21/22 05/25/22 History [humaLOG MIX 75-25 Kwikpen] Acetylcysteine [Nac] 600 mg PO DAILY 03/22/22 05/25/22 History Ascorbic Acid [Vitamin C] 1,000 mg PO DAILY 03/22/22 05/25/22 History Cyanocobalamin [Vitamin B-12] 500 mcg PO DAILY 03/22/22 05/25/22 History Enalapril Maleate [Vasotec] 20 mg PO HS #0 03/22/22 05/25/22 Rx Ergocalciferol [Vitamin D2 (1250 1,250 mcg PO SAMUELS 03/22/22 05/25/22 History Mcg = 26230 Iu)] Furosemide [Lasix] 40 mg PO DAILY #90 tablet 03/22/22 05/25/22 Rx Isosorbide Mononitrate ER [Imdur] 30 mg PO DAILY #30 tab 03/22/22 05/25/22 Rx Magnesium Oxide [Magnesium] 500 mg PO DAILY 03/22/22 05/25/22 History Spironolactone [Aldactone] 12.5 mg PO DAILY #45 tablet 03/22/22 05/25/22 Rx Zinc Gluconate [Zinc] 50 mg PO DAILY 03/22/22 05/25/22 History Biotin 5 mg PO DAILY 05/25/22 05/25/22 History Allergies Allergy/AdvReac Type Severity Reaction Status Date / Time Penicillins Allergy Rash/Hives/ Verified 05/25/22 13:23 Blistering Physical Exam Vitals: Vital Signs Temp Pulse Pulse Resp BP BP Pulse Ox 05/27/22 21:00 97.8 F 76 18 124/54 100 05/27/22 20:00 97.8 F 77 77 13 124/54 100 05/27/22 19:00 70 15 05/27/22 18:00 73 14 05/27/22 17:00 76 22 106/48 95 05/27/22 16:00 63 05/27/22 15:00 71 05/27/22 14:00 91 29 H 05/27/22 13:00 84 10 L 05/27/22 12:00 97.7 F 71 18 106/48 95 05/27/22 11:00 75 23 05/27/22 10:00 71 24 05/27/22 09:00 82 17 124/73 95 05/27/22 08:00 97.8 F 92 11 L 108/47 95 05/27/22 07:00 80 16 104/45 90 L 05/27/22 06:00 66 6 L 101/32 94 L 05/27/22 05:00 89 15 105/50 95 05/27/22 04:00 64 21 105/50 92 L 05/27/22 03:00 63 20 105/50 92 L 05/27/22 02:00 80 19 105/50 96 05/27/22 01:00 69 23 106/44 98 05/27/22 00:06 64 23 97/52 90 L 05/27/22 00:00 66 22 120/64 90 L Intake and Output 05/27/22 05/27/22 05/28/22 14:59 22:59 06:59 Intake Total 225 855 Output Total 200 1300 Balance 25 -445 Intake: IV 225 605 0.9 225 605 Intake, IV Titration 250 Amount Heparin Sod,Pork in 0.45% 250 NaCl 25,000 unit In 0.45 % NaCl 1 250ml.bag @ 13. 71 mls/hr IV .[id number] [facility] Rx#:[id number] Output: Urine 200 1300 Other: Voiding Method Bedside Commode Bedside Commode # Voids 3 # Bowel Movements 1 Results 05/27/22 05:04 05/27/22 05:04 Coagulation 05/27/22 05/27/22 Range/Units 04:58 09:07 PT 10.5 (9.0-12.0) sec APTT 70.6 H (22.0-30.0) sec CBC 05/27/22 Range/Units 05:04 WBC 10.1 (3.8-10.6) k/uL RBC 4.73 (3.80-5.40) m/uL Hgb 14.7 (11.4-16.0) gm/dL Hct 43.2 (34.0-46.0) % Plt Count 159 (150-450) k/uL Comprehensive Metabolic Panel 05/27/22 Range/Units 05:04 Sodium 139 (137-145) mmol/L Potassium 4.5 (3.5-5.1) mmol/L Chloride 106 (98-107) mmol/L Carbon Dioxide 29 (22-30) mmol/L BUN 27 H (7-17) mg/dL Creatinine 1.27 H (0.52-1.04) mg/dL Glucose 63 L (74-99) mg/dL Calcium 8.8 (8.4-10.2) mg/dL Current Medications Generic Name Dose Route Start Last Admin Trade Name Freq PRN Reason Stop Dose Admin Acetaminophen 650 mg 05/25/22 15:06 Acetaminophen Tab 325 Mg Tab PO Q6HR PRN Mild Pain or Fever > 100.5 Alprazolam 0.25 mg 05/25/22 12:36 Alprazolam 0.25 Mg Tab PO Q6HR PRN Mild Anxiety Alprazolam 0.5 mg 05/25/22 12:36 Alprazolam 0.5 Mg Tab PO Q6HR PRN Moderate Anxiety Amlodipine Besylate 10 mg 05/26/22 09:00 05/27/22 09:02 Amlodipine 10 Mg Tab PO 10 mg DAILY [facility] Administration Ascorbic Acid 1,000 mg 05/26/22 09:00 05/27/22 09:03 Ascorbic Acid 500 Mg Tab PO 1,000 mg DAILY [facility] Administration Aspirin 325 mg 05/26/22 09:00 05/27/22 10:38 Aspirin 325 Mg Tab PO 325 mg DAILY [facility] Administration Benzocaine/Menthol 1 each 05/26/22 10:12 Benzocaine/Menthol Lozeng 1 Each Lozenge MUCOUS MEM Q4HR PRN cough Calcium Carbonate/Glycine 1,000 mg 05/25/22 15:06 Calcium Carbonate 500 Mg Chewable PO Q4HR PRN Dyspepsia Clopidogrel Bisulfate 75 mg 05/26/22 09:00 05/27/22 10:38 Clopidogrel 75 Mg Tab PO 75 mg DAILY [facility] Administration Cyanocobalamin 500 mcg 05/26/22 09:00 05/27/22 09:02 Cyanocobalamin 500 Mcg Tab PO 500 mcg DAILY [facility] Administration Ergocalciferol 1,250 mcg 05/28/22 09:00 Ergocalciferol 1,250 Mcg (50,000 Iu) Capsule PO [facility] Heparin Sodium (Porcine) 0 unit 05/26/22 09:09 05/26/22 11:56 Heparin Sodium 1,000 Un/Ml (10ml Vl) IV 3,175 unit PER PROTOCOL PRN Administration Low PTT Protocol Sodium Chloride 1,000 mls @ 20 mls/hr 05/25/22 14:30 05/27/22 08:26 Saline 0.9% IV Not Given .Q24H [facility] Heparin Sodium/Sodium Chloride 250 mls @ 13.71 mls/hr 05/26/22 09:15 05/27/22 17:27 25,000 unit/ Sodium Chloride IV 1,625 units/hr .[id number] [facility] 16.25 mls/hr Administration Protocol Insulin Aspart 35 unit 05/25/22 17:30 05/27/22 17:28 Insuln Asp Prt/Insulin Aspart 100 Unit/Ml 10 Ml Vial SQ Not Given AC-BID [facility] Lactulose 20 gm 05/25/22 15:06 Lactulose 20 Gm/30 Ml Cup PO DAILY PRN Constipation Lisinopril 40 mg 05/25/22 21:00 05/27/22 21:45 Lisinopril 20 Mg Tab PO 40 mg HS [facility] Administration Magnesium Oxide 400 mg 05/26/22 09:00 05/27/22 09:02 Magnesium Oxide 400 Mg Tab PO 400 mg DAILY [facility] Administration Melatonin 3 mg 05/25/22 15:06 Melatonin 3 Mg Tablet PO HS PRN Insomnia Metoprolol Succinate 25 mg 05/26/22 09:00 05/27/22 09:02 Metoprolol Succinate (Er) 25 Mg Tab.Er.24h PO 25 mg DAILY [facility] Administration Miscellaneous Information 1 each 05/26/22 08:37 Rx Info: Iv Contrast Was Given 1 Each Misc MISCELLANE 05/28/22 08:37 DAILY PRN Per Protocol Naloxone HCl 0.2 mg 05/25/22 15:06 Naloxone 0.4 Mg/Ml 1 Ml Vial IV Q2M PRN Opioid Reversal Nitroglycerin 0.4 mg 05/25/22 15:02 Nitroglycerin Sl Tabs 0.4 Mg Tab SUBLINGUAL Q5M PRN Chest Pain Non-Formulary Medication 600 mg 05/26/22 09:00 05/27/22 08:54 Acetylcysteine [Nac] PO Not Given DAILY [facility] Ondansetron HCl 4 mg 05/25/22 15:06 Ondansetron 4 Mg/2 Ml Vial IVP Q8HR PRN Nausea And Vomiting Zinc Sulfate 220 mg 05/26/22 09:00 05/27/22 09:03 Zinc Sulfate 220 Mg Cap PO 220 mg DAILY [facility] Administration Intake and Output 05/27/22 05/27/22 05/28/22 14:59 22:59 06:59 Intake Total 225 855 Output Total 200 1300 Balance 25 -445 Intake: IV 225 605 0.9 225 605 Intake, IV Titration 250 Amount Heparin Sod,Pork in 0.45% 250 NaCl 25,000 unit In 0.45 % NaCl 1 250ml.bag @ 13. 71 mls/hr IV .[id number] [facility] Rx#:[id number] Output: Urine 200 1300 Other: Voiding Method Bedside Commode Bedside Commode # Voids 3 # Bowel Movements 1 05/27/22 05:04 05/27/22 05:04
[2022-05-28 06:12] LABS: Basophils % (A) 0 %; Eosinophils # (A) 0.2 k/uL (0-0.7); Eosinophils % (A) 2 %; HCT 40.5 % (34.0-46.0); HGB 13.5 gm/dL (11.4-16.0); Lymphocytes # (A) 3.2 k/uL (1.0-4.8); Lymphocytes % (A) 32 %; MCH 30.9 pg (25.0-35.0); MCHC 33.3 g/dL (31.0-37.0); Mean Platelet Volume 11.4; Monocytes % (A) 10 %; Neutrophils # (A) 5.4 k/uL (1.3-7.7); Neutrophils % (A) 54 %; Platelet Count 159 k/uL (150-450); RBC 4.36 m/uL (3.80-5.40); RDW 13.7 % (11.5-15.5)
[2022-05-28 06:25] LABS: Calcium 8.7 mg/dL (8.4-10.2); Magnesium 2.2 mg/dL (1.6-2.3); Potassium 4.6 mmol/L (3.5-5.1)
[2022-05-28 06:29] LABS: Glucose,Whole Blood 199 mg/dL (70-110)
[2022-05-28] MEDS: INSULN ASP PRT/INSULIN ASPART 100 UNIT/ML 10 ML VIAL SQ SCH ×2 (07:36→17:13)
[2022-05-28 08:01] LABS: Rouleaux Present
[2022-05-28] MEDS: SODIUM CHLORIDE 0.9% 1,000 ML IV SCH (08:15)
[2022-05-28] MEDS: NON FORMULARY DRUG (Acetylcysteine [Nac] 600 MG Tablet) PO SCH (08:21)
[2022-05-28] MEDS ORDERED: ERGOCALCIFEROL 1,250 MCG (50,000 IU) CAPSULE PO SCH (09:00)
[2022-05-28] MEDS: ZINC SULFATE 220 MG CAP PO SCH (09:10)
[2022-05-28] MEDS: CLOPIDOGREL 75 MG TAB PO SCH (09:10)
[2022-05-28] MEDS: ASCORBIC ACID 500 MG TAB PO SCH (09:10)
[2022-05-28] MEDS: ASPIRIN 325 MG TAB PO SCH (09:10)
[2022-05-28] MEDS: MAGNESIUM OXIDE 400 MG TAB PO SCH (09:10)
[2022-05-28] MEDS: CYANOCOBALAMIN 500 MCG TAB PO SCH (09:10)
[2022-05-28] MEDS: METOPROLOL SUCCINATE (ER) 25 MG TAB.ER.24H PO SCH (09:11)
[2022-05-28] MEDS: amLODIPine 10 MG TAB PO SCH (10:37)
[2022-05-28] MEDS: HEPARIN SOD,PORK IN 0.45% NACL 25,000 UNIT in 0.45% NACL 1 250ML.BAG IV SCH (10:37)
[2022-05-28 11:17] LABS: Hepatitis A Antibody IgM Nonreactive (Nonreactive); Hepatitis B Core IgM Nonreactive (Nonreactive); Hepatitis B Surface Antigen Nonreactive (Nonreactive); Hepatitis C IgG Antibody Nonreactive (Nonreactive)
--- NOTE | 2022-05-28 11:23 | P.PN ---
Subjective Progress Note Date: 05/28/22 Principal diagnosis: Chest pain. Pulmonary consult dated 05/26/2022. 77-year-old female with history of multiple medical problems including coronary disease, previous myocardial infarction, multiple stent placements, hypertension, hyperlipidemia, diabetes, and chronic kidney disease. The patient has had 6 cardiac stents in the past. Minute to the hospital, with chest pain, on May 25, and was found to have a non-ST segment elevation myocardial infarction. She's currently being evaluated by cardiothoracic surgery for bypass grafting. She's currently in the ICU at room 256. The patient is on 2 L of oxygen. Receiving IV nitroglycerin at 10 mcg/m, and IV heparin via weightbase protocol. The patient's also receiving saline at KVO. The patient is scheduled to have a bedside spirometry. She has just been evaluated by cardiothoracic surgery. Current labs include a sodium 137, potassium 5.1, chlorides 106, CO2 21, BUN 27 creatinine 1.25. Thyroid function is normal. Chest x-ray is positive for cardiomegaly, and possible chronic interstitial lung disease. Progress note dated 05/27/2022. 77-year-old female seen yesterday in consultation. She seen again today in the intensive care unit, room 256. It was decided by surgery, the patient was not a good surgical candidate for bypass procedure. Hence, the patient will be treated medically. She's currently on 2 L of oxygen. She is receiving IV heparin. She is getting saline at 75 mL per hour. White count 10.1, hemoglobin 14.7, hematocrit 43.2, and platelet count was normal. PTT was 70.6. Sodium 13 9, potassium 4.5, chlorides 106, CO2 29, BUN 27, and creatinine 1.27. Progress note dated 05/28/2022. 77-year-old female seen today in the intensive care unit, room 256. The patient's on room air. She's getting saline at KVO. She remains on IV heparin. She received Lasix 40 mg IV push, from cardiology yesterday. Patient had an uneventful night. She is waiting for a bed out on the cardiac floor. CBC today is normal. PTT is 67. Sodium 136, potassium 4.6, chlorides 101, CO2 32, BUN 25, and creatinine 1.20. Objective - Vital Signs Vital signs: Vital Signs Temp 97.5 F L 05/28/22 08:00 Pulse 84 05/28/22 08:00 Resp 16 05/28/22 08:00 BP 121/79 05/28/22 10:30 Pulse Ox 95 05/28/22 08:06 FiO2 Intake & Output 05/27/22 05/28/22 05/28/22 18:59 06:59 18:59 Intake Total 1000 280 250 Output Total 200 1900 Balance 800 -1620 250 Intake: IV 750 280 0.9 750 280 Intake, IV Titration 250 250 Amount Heparin Sod,Pork in 0.45% 250 250 NaCl 25,000 unit In 0.45 % NaCl 1 250ml.bag @ 13. 71 mls/hr IV .[id number] [facility] Rx#:[id number] Output: Urine 200 1900 Other: Voiding Method Bedside Commode Bedside Commode Bedside Commode # Voids 2 3 # Bowel Movements 1 - Exam No acute distress, oriented 3. Obese white female. Currently on room air. Saturations are 95%. HEENT examination is grossly unremarkable. Neck supple. Full range of motion. No adenopathy thyromegaly or neck vein distention. Cardiovascular examination reveals regular rhythm rate. S1-S2 normal. No S3 or S4. No discernible murmur noted. Heart rate is 84 bpm. Heart sounds are distant. Lungs reveal clear breath sounds. Breath sounds are equal bilaterally. No adve ntitious lung sounds including wheezes rhonchi or crackles. Room air saturations are 95%. Abdomen soft bowel sounds are heard. No masses or tenderness. Extremities are intact. No cyanosis clubbing or edema. Skin is without rash or lesion. Neurologic examination is brief but nonfocal. - Labs CBC & Chem 7: 05/28/22 05:19 05/28/22 05:19 Labs: Abnormal Lab Results - Last 24 Hours (Table) 05/27/22 05/28/22 05/28/22 Range/Units 17:25 05:19 05:19 APTT 66.7 H (22.0-30.0) sec Sodium 136 L (137-145) mmol/L Carbon Dioxide 32 H (22-30) mmol/L BUN 25 H (7-17) mg/dL Creatinine 1.20 H (0.52-1.04) mg/dL Glucose 183 H (74-99) mg/dL POC Glucose (mg/dL) 148 H (70-110) mg/dL 05/28/22 Range/Units 06:27 APTT (22.0-30.0) sec Sodium (137-145) mmol/L Carbon Dioxide (22-30) mmol/L BUN (7-17) mg/dL Creatinine (0.52-1.04) mg/dL Glucose (74-99) mg/dL POC Glucose (mg/dL) 199 H (70-110) mg/dL Microbiology - Last 24 Hours (Table) 05/26/22 09:37 Nasal Screen MRSA/MSSA - Final Nasal Swab Assessment and Plan Assessment: Acute non-ST segment elevation myocardial infarction, with known history of CAD, and PCI with previous stents 6. History of previous myocardial infarction, 2. History of hypertension. Hyperlipidemia. Diabetes mellitus. Chronic kidney disease. Obesity. Lifelong nonsmoker. Plan: Plan dated 05/26/2022. The patient is seen in the intensive care unit, room 256. She was just seen by cardiothoracic surgery. Pulmonary function tests have been ordered but not completed. The patient's currently on 2 L of oxygen. The patient's receiving IV nitroglycerin at 10 mcg/m, and IV heparin. Labs, x-rays, medications are reviewed. She is a lifelong nonsmoker and appears not to have any lung issues we will await the PFTs. We will continue to follow along and make recommendations were appropriate. Prognosis is guarded. Plan dated 05/27/2022. The patient is seen again in the intensive care unit. She's in room 256. She had an uneventful night. She remains on 2 L of oxygen. She's getting saline at 75 mL an hour, and IV heparin via protocol. The patient was to determine yesterday by thoracic surgery cannot be a surgical candidate. The patient is okay with that. The patient can be transferred to the stepdown unit. Additional recommendations and suggestions are forthcoming. Prognosis is guarded. Plan dated 05/28/2022. The patient is again seen in the intensive care unit. She's in room 256. She is waiting for a bed on the cardiac stepdown unit. She remains on IV heparin. She is on room air. She's getting saline at KVO. Labs, x-rays, and medications are reviewed. It was decided by cardiothoracic surgery, the patient was too high risk for bypass surgery. Time with Patient: Less than 30
[2022-05-28 11:31] LABS: Glucose,Whole Blood 120 mg/dL (70-110)
--- NOTE | 2022-05-28 12:19 | P.PN ---
Subjective HISTORY OF PRESENTING ILLNESS Patient is pleasant 77-year-old female with history of CAD with prior PCI, diabetes mellitus type 2, obesity, hypertension, hyperlipidemia who presented May 25 with intermittent off and on chest pain or last few years as well as shortness breath. Chest pain Worse in the Prior 24 Hours and Had Presented to the Hospital. Troponins Were Elevated and Patient Underwent Heart Catheterization Which Showed Triple Vessel Disease As Well As CT of the RCA. Her LVEDP was elevated at 30. She was seen by cardiothoracic surgery and felt to be a poor surgical candidate. Echo showed left ventricular ejection fraction 35-40% with mention of severe left ventricular dilation and mild to moderate mitral regurgitation. 05/27/22 Patient seen and examined. Patient admits to mild episode of chest discomfort this morning however did not last that long. She remains on heparin drip. She was recommended to undergo PCI if possible from surgical standpoint and if PCI not a good option recommendations for JESUS. She admits to mild dyspnea. Her LVEDP was elevated. She has been receiving IV fluids however tolerating diet. 05/28 Patient seen and examined. She did have some atypical chest pressure this morning however fairly mild. Denies any significant shortness breath. She is being diuresed and tolerating well. Creatinine stable. Plan for possible intervention 05/29 or so 05/[address] Foley. PHYSICAL EXAMINATION Vital signs reviewed. CONSTITUTIONAL: No apparent distress. HEENT: Head is normocephalic. Pupils are equal, round. Sclerae anicteric. Mucous membranes of the mouth are moist. No JVD. No carotid bruit. CHEST EXAMINATION: Lungs are clear to auscultation. No chest wall tenderness is noted on palpation or with deep breathing. HEART EXAMINATION: Regular rate and rhythm. S1, S2 heard. No murmurs, gallops or rub. ABDOMEN: Soft, nontender. Positive bowel sounds. EXTREMITIES: 2+ peripheral pulses, no lower extremity edema and no calf tenderness. NEUROLOGIC EXAMINATION: Patient is awake, alert and oriented x3. ASSESSMENT 1. Non-STEMI 2. CAD, multivessel with prior history of PCI, [employer] of RCA 3. Mild to moderate mitral regurgitation 4. Acute on chronic systolic heart failure 5. Ischemic cardiomyopathy EF 35-40% 6. Diabetes mellitus type 2 7. Hypertension 8. Obesity PLAN Some of patient's chest pain appears somewhat atypical often occurring at night however continue with antianginals as tolerated. Possible intervention tomorrow or Sunday by Dr. Foley. Continue heparin drip for now. Continue with IV Lasix and monitor response. Monitor creatinine closely. Further recommendations to follow. No need for JESUS if surgery not recommended. Objective - Vital Signs Vital signs: Vital Signs Temp 97.5 F L 05/28/22 08:00 Pulse 84 05/28/22 08:00 Resp 16 05/28/22 08:00 BP 121/79 05/28/22 10:30 Pulse Ox 95 05/28/22 08:06 FiO2 Intake & Output 05/27/22 05/28/22 05/28/22 18:59 06:59 18:59 Intake Total 1000 280 250 Output Total 200 1900 Balance 800 -1620 250 Intake: IV 750 280 0.9 750 280 Intake, IV Titration 250 250 Amount Heparin Sod,Pork in 0.45% 250 250 NaCl 25,000 unit In 0.45 % NaCl 1 250ml.bag @ 13. 71 mls/hr IV .[id number] [facility] Rx#:[id number] Output: Urine 200 1900 Other: Voiding Method Bedside Commode Bedside Commode Bedside Commode # Voids 2 3 # Bowel Movements 1 - Labs CBC & Chem 7: 05/28/22 05:19 05/28/22 05:19 Labs: Abnormal Lab Results - Last 24 Hours (Table) 05/27/22 05/28/22 05/28/22 Range/Units 17:25 05:19 05:19 APTT 66.7 H (22.0-30.0) sec Sodium 136 L (137-145) mmol/L Carbon Dioxide 32 H (22-30) mmol/L BUN 25 H (7-17) mg/dL Creatinine 1.20 H (0.52-1.04) mg/dL Glucose 183 H (74-99) mg/dL POC Glucose (mg/dL) 148 H (70-110) mg/dL 05/28/22 05/28/22 Range/Units 06:27 11:30 APTT (22.0-30.0) sec Sodium (137-145) mmol/L Carbon Dioxide (22-30) mmol/L BUN (7-17) mg/dL Creatinine (0.52-1.04) mg/dL Glucose (74-99) mg/dL POC Glucose (mg/dL) 199 H 120 H (70-110) mg/dL Microbiology - Last 24 Hours (Table) 05/26/22 09:37 Nasal Screen MRSA/MSSA - Final Nasal Swab
--- NOTE | 2022-05-28 16:50 | P.PN ---
Progress Note - Text Progress Note Date: 05/28/22 Chief Complaint: Chest pain This is a pleasant 76-year-old patient who follows with Dr. Miller. 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 Chronic stable medical conditions include diabetes, hypertension, hyperlipidemia, CAD with stent 5 in 2019. Patient was admitted here in March with CHF exacerbation. Patient states that she's had chest pain on and off for some time. Close to a year ago patient did have a stress test as well as negative. Patient was scheduled to have another stress test. Presented today with much increasing chest pain. The normal. Nitroglycerin has sometimes other times not. No shortness of breath no fever or chills no cough. Patient has chronic lower extremity edema. Patient is described pain as all over the chest. No dizziness no lightheadedness. No radiation. May 26: Underwent cardiac catheterization this morning by Dr. Salazar. Was found to have three-vessel CAD with chronically occluded RCA, with [id number] collaterals, patent stents and a possibly plaque rupture in the LAD and significant stenosis involving the ostial OM. And the diagonal branches. Dr. Hunt from cardiothoracic surgery evaluated the patient for three-vessel bypass. Patient was concerned about her findings. Had a lengthy discussion with the patient. And reassured about the findings in terms of treatment and outcomes. She feels better. On IV heparin. May 27: Up in a chair. Had a small episode of chest pain today. Remains on IV heparin. Per cardiothoracic team: Recommend angioplasty. If not then recommends JESUS to look anatomy will closely.. May 28: Up in a chair. Somewhat tearful about once going on. Reassured. IV heparin. Possible intervention tomorrow/Sunday by Dr. Foley. Active Medications Acetaminophen (Acetaminophen Tab 325 Mg Tab) 650 mg PO Q6HR PRN PRN Reason: Mild Pain or Fever > 100.5 Alprazolam (Alprazolam 0.25 Mg Tab) 0.25 mg PO Q6HR PRN PRN Reason: Mild Anxiety Alprazolam (Alprazolam 0.5 Mg Tab) 0.5 mg PO Q6HR PRN PRN Reason: Moderate Anxiety Amlodipine Besylate (Amlodipine 10 Mg Tab) 10 mg PO DAILY [facility] Last Admin: 05/28/22 10:37 Dose: 10 mg Ascorbic Acid (Ascorbic Acid 500 Mg Tab) 1,000 mg PO DAILY [facility] Last Admin: 05/28/22 09:10 Dose: 1,000 mg Aspirin (Aspirin 325 Mg Tab) 325 mg PO DAILY [facility] Last Admin: 05/28/22 09:10 Dose: 325 mg Benzocaine/Menthol (Benzocaine/Menthol Lozeng 1 Each Lozenge) 1 each MUCOUS MEM Q4HR PRN PRN Reason: cough Calcium Carbonate/Glycine (Calcium Carbonate 500 Mg Chewable) 1,000 mg PO Q4HR PRN PRN Reason: Dyspepsia Clopidogrel Bisulfate (Clopidogrel 75 Mg Tab) 75 mg PO DAILY [facility] Last Admin: 05/28/22 09:10 Dose: 75 mg Cyanocobalamin (Cyanocobalamin 500 Mcg Tab) 500 mcg PO DAILY [facility] Last Admin: 05/28/22 09:10 Dose: 500 mcg Ergocalciferol (Ergocalciferol 1,250 Mcg (50,000 Iu) Capsule) 1,250 mcg PO SAMUELS [facility] Last Admin: 05/28/22 09:10 Dose: 1,250 mcg Heparin Sodium (Porcine) (Heparin Sodium 1,000 Un/Ml (10ml Vl)) 0 unit IV PER PROTOCOL PRN; Protocol PRN Reason: Low PTT Last Admin: 05/26/22 11:56 Dose: 3,175 unit Sodium Chloride (Saline 0.9%) 1,000 mls @ 20 mls/hr IV .Q24H [facility] Last Admin: 05/28/22 08:15 Dose: Not Given Heparin Sodium/Sodium Chloride (25,000 unit/ Sodium Chloride) 250 mls @ 13.71 mls/hr IV .[id number] [facility]; Protocol Last Admin: 05/28/22 10:37 Dose: 1,625 units/hr, 16.25 mls/hr Insulin Aspart (Insuln Asp Prt/Insulin Aspart 100 Unit/Ml 10 Ml Vial) 35 unit SQ AC-BID [facility] Last Admin: 05/28/22 07:36 Dose: 35 unit Lactulose (Lactulose 20 Gm/30 Ml Cup) 20 gm PO DAILY PRN PRN Reason: Constipation Lisinopril (Lisinopril 20 Mg Tab) 40 mg PO HS [facility] Last Admin: 05/27/22 21:45 Dose: 40 mg Magnesium Oxide (Magnesium Oxide 400 Mg Tab) 400 mg PO DAILY [facility] Last Admin: 05/28/22 09:10 Dose: 400 mg Melatonin (Melatonin 3 Mg Tablet) 3 mg PO HS PRN PRN Reason: Insomnia Metoprolol Succinate (Metoprolol Succinate (Er) 25 Mg Tab.Er.24h) 25 mg PO DAILY [facility] Last Admin: 05/28/22 09:11 Dose: 25 mg Naloxone HCl (Naloxone 0.4 Mg/Ml 1 Ml Vial) 0.2 mg IV Q2M PRN PRN Reason: Opioid Reversal Nitroglycerin (Nitroglycerin Sl Tabs 0.4 Mg Tab) 0.4 mg SUBLINGUAL Q5M PRN PRN Reason: Chest Pain Non-Formulary Medication (Acetylcysteine [Nac]) 600 mg PO DAILY [facility] Last Admin: 05/28/22 08:21 Dose: Not Given Ondansetron HCl (Ondansetron 4 Mg/2 Ml Vial) 4 mg IVP Q8HR PRN PRN Reason: Nausea And Vomiting Zinc Sulfate (Zinc Sulfate 220 Mg Cap) 220 mg PO DAILY [facility] Last Admin: 05/28/22 09:10 Dose: 220 mg Past medical history to include: Diabetes, hypertension, hyperlipidemia, [place] in 2010, CAD with stent in 2019 Social history: . No smoking or alcohol Physical examination: VITAL SIGNS: 97.6, 83, 14, 121/79, 94% room air GENERAL: BMI 51.2, up in a chair EYES: Pupils equal. Conjunctiva normal. HEENT: External appearance of nose and ears normal, oral cavity grossly normal. NECK: JVD not raised; masses not palpable. HEART: First and second heart sounds are normal; some edema. LUNGS: Respiratory rate increased; decreased breath sound. ABDOMEN: Soft, nontender, liver spleen not palpable, no masses palpable. PSYCH: Alert and oriented x3; mood and affect a bit tearful MUSCULOSKELETAL:No Clubbing/cyanosis;muscles-grossly intact. OA INVESTIGATIONS, reviewed in the clinical context: May 28: White count and hemoglobin 13.5 platelets 159 potassium 4.6 BUN 25 creatinine 1.20 May 27: White count 10.1 hemoglobin 14.7 platelets. 9 potassium 4.5. 27 creatinine 1.27 2-D echocardiogram [May 26] EF 35-40%. Wall motion abnormality. May 26: White count 8.2 hemoglobin 14.1 platelets 143 potassium 5.1 BUN 27 creatinine 1.25 HbA1c 6.5 TSH 1.6 EKG tracing personally reviewed by me-sinus tachycardia. ST-T wave changes. Across. Chest x-ray film personally reviewed by me-cardiomegaly. Prominent pulmonary artery WBC 8.3 hemoglobin 14.5 platelets 172 sodium 137 potassium 4.9 BUN 23 creatinine 1.23, Troponin I 0.0118, 0.608 Assessment and plan: -Acute non-Q-wave [place]. Known CAD. Aspirin, IV heparin, beta darian -3-vessel CAD with chronically occluded RCA, with [id number] collaterals, patent stents and a possibly plaque rupture in the LAD and significant stenosis involving the ostial OM. And the diagonal branches: Slow to respond Aspirin, Toprol-XL, Zestril, Lipitor. Pending repeat intervention by cardiology. -IV heparin monitoring, follow PTT -chronic congestive diastolic heart failure of systolic dysfunction, EF 35-40%, ischemic cardiomyopathy Lasix Aldactone-held for now -Diabetes mellitus type 2, chronically on insulin Humalog mix 75/25 twice a day follow Accu-Cheks with sliding scale -Essential hypertension Toprol-XL, Vasotec amlodipine -Acute kidney injury, likely prerenal. Creatinine was 0.98 on 03/21/2022. . Hold diuretics. -Morbid obesity BMI 51.2 Weight loss measures. Follow with PCP. Patient reassured. Pending repeat intervention by cardiology.
[2022-05-28 17:09] LABS: Glucose,Whole Blood 199 mg/dL (70-110)
[2022-05-28 20:24] LABS: Chol/HDL Ratio 2.79 Ratio; LDL Cholesterol,Calculated 84.6 mg/dL (0.0-131.0)
[2022-05-28] MEDS ORDERED: amLODIPine 5 MG TAB PO SCH (21:00)
[2022-05-28] MEDS: lisinopriL 20 MG TAB PO SCH (21:02)
[2022-05-29 00:15] LABS: Glucose,Whole Blood 170 mg/dL (70-110)
[2022-05-29] MEDS: NITROGLYCERIN OINT 1 INCH/GM PACKET TOPICAL SCH ×5 (00:16→23:33)
[2022-05-29] MEDS: HEPARIN SOD,PORK IN 0.45% NACL 25,000 UNIT in 0.45% NACL 1 250ML.BAG IV SCH ×2 (01:52→17:17)
--- NOTE | 2022-05-29 05:37 | P.PN ---
Subjective Progress Note Date: 05/29/22 Principal diagnosis: Chest pain. Pulmonary consult dated 05/26/2022. 77-year-old female with history of multiple medical problems including coronary disease, previous myocardial infarction, multiple stent placements, hypertension, hyperlipidemia, diabetes, and chronic kidney disease. The patient has had 6 cardiac stents in the past. Minute to the hospital, with chest pain, on May 25, and was found to have a non-ST segment elevation myocardial infarction. She's currently being evaluated by cardiothoracic surgery for bypass grafting. She's currently in the ICU at room 256. The patient is on 2 L of oxygen. Receiving IV nitroglycerin at 10 mcg/m, and IV heparin via weightbase protocol. The patient's also receiving saline at KVO. The patient is scheduled to have a bedside spirometry. She has just been evaluated by cardiothoracic surgery. Current labs include a sodium 137, potassium 5.1, chlorides 106, CO2 21, BUN 27 creatinine 1.25. Thyroid function is normal. Chest x-ray is positive for cardiomegaly, and possible chronic interstitial lung disease. Progress note dated 05/27/2022. 77-year-old female seen yesterday in consultation. She seen again today in the intensive care unit, room 256. It was decided by surgery, the patient was not a good surgical candidate for bypass procedure. Hence, the patient will be treated medically. She's currently on 2 L of oxygen. She is receiving IV heparin. She is getting saline at 75 mL per hour. White count 10.1, hemoglobin 14.7, hematocrit 43.2, and platelet count was normal. PTT was 70.6. Sodium 13 9, potassium 4.5, chlorides 106, CO2 29, BUN 27, and creatinine 1.27. Progress note dated 05/28/2022. 77-year-old female seen today in the intensive care unit, room 256. The patient's on room air. She's getting saline at KVO. She remains on IV heparin. She received Lasix 40 mg IV push, from cardiology yesterday. Patient had an uneventful night. She is waiting for a bed out on the cardiac floor. CBC today is normal. PTT is 67. Sodium 136, potassium 4.6, chlorides 101, CO2 32, BUN 25, and creatinine 1.20. Progress note dated 05/29/2022. 77-year-old female seen again today in the intensive care unit, room 256. The patient's on room air. She's receiving saline at KVO. Clinically, she had an uneventful night and day. According to the nurse, she is doing well. She was waiting for a bed out on the cardiology floor. Her glucose was measured at 170. The patient denies any chest pain or chest discomfort, palpitations, shortness of breath, cough, wheezing, or phlegm production. Objective - Vital Signs Vital signs: Vital Signs Temp 98.1 F 05/29/22 04:00 Pulse 59 L 05/29/22 04:00 Resp 22 05/29/22 04:00 BP 102/48 05/29/22 04:00 Pulse Ox 95 05/29/22 04:00 FiO2 Intake & Output 05/28/22 05/28/22 05/29/22 06:59 18:59 06:59 Intake Total 280 450 487.813 Output Total 1900 450 500 Balance -1620 0 -12.187 Intake: IV 280 200 0.9 280 200 Intake, IV Titration 250 247.813 Amount Heparin Sod,Pork in 0.45% 250 247.813 NaCl 25,000 unit In 0.45 % NaCl 1 250ml.bag @ 13. 71 mls/hr IV .[id number] [facility] Rx#:[id number] Oral 240 Output: Urine 1900 450 500 Other: Voiding Method Bedside Commode Bedside Commode Bedside Commode # Voids 3 - Exam No acute distress, oriented 3. Obese white female. Currently on room air. Saturations are 96 %. HEENT examination is grossly unremarkable. Neck supple. Full range of motion. No adenopathy thyromegaly or neck vein distention. Cardiovascular examination reveals regular rhythm rate. S1-S2 normal. No S3 or S4. No discernible murmur noted. Heart rate is 59 bpm. Heart sounds are distant. Lungs reveal clear breath sounds. Breath sounds are equal bilaterally. No adventitious lung sounds including wheezes rhonchi or crackles. Room air saturations are 96 %. Abdomen soft bowel sounds are heard. No masses or tenderness. Extremities are intact. No cyanosis clubbing or edema. Skin is without rash or lesion. Neurologic examination is brief but nonfocal. - Labs CBC & Chem 7: 05/28/22 05:19 05/28/22 05:19 Labs: Abnormal Lab Results - Last 24 Hours (Table) 05/28/22 05/28/22 05/28/22 Range/Units 05:19 05:19 06:27 APTT 66.7 H (22.0-30.0) sec Sodium 136 L (137-145) mmol/L Carbon Dioxide 32 H (22-30) mmol/L BUN 25 H (7-17) mg/dL Creatinine 1.20 H (0.52-1.04) mg/dL Glucose 183 H (74-99) mg/dL POC Glucose (mg/dL) 199 H (70-110) mg/dL 05/28/22 05/28/22 05/29/22 Range/Units 11:30 17:07 00:13 APTT (22.0-30.0) sec Sodium (137-145) mmol/L Carbon Dioxide (22-30) mmol/L BUN (7-17) mg/dL Creatinine (0.52-1.04) mg/dL Glucose (74-99) mg/dL POC Glucose (mg/dL) 120 H 199 H 170 H (70-110) mg/dL Microbiology - Last 24 Hours (Table) 05/26/22 09:37 Nasal Screen MRSA/MSSA - Final Nasal Swab Assessment and Plan Assessment: Acute non-ST segment elevation myocardial infarction, with known history of CAD, and PCI with previous stents 6. History of previous myocardial infarction, 2. History of hypertension. Hyperlipidemia. Diabetes mellitus. Chronic kidney disease. Obesity. Lifelong nonsmoker. Plan: Plan dated 05/26/2022. The patient is seen in the intensive care unit, room 256. She was just seen by cardiothoracic surgery. Pulmonary function tests have been ordered but not completed. The patient's currently on 2 L of oxygen. The patient's receiving IV nitroglycerin at 10 mcg/m, and IV heparin. Labs, x-rays, medications are reviewed. She is a lifelong nonsmoker and appears not to have any lung issues we will await the PFTs. We will continue to follow along and make recommendations were appropriate. Prognosis is guarded. Plan dated 05/27/2022. The patient is seen again in the intensive care unit. She's in room 256. She had an uneventful night. She remains on 2 L of oxygen. She's getting saline at 75 mL an hour, and IV heparin via protocol. The patient was to determine yesterday by thoracic surgery cannot be a surgical candidate. The patient is okay with that. The patient can be transferred to the stepdown unit. Additional recommendations and suggestions are forthcoming. Prognosis is guarded. Plan dated 05/28/2022. The patient is again seen in the intensive care unit. She's in room 256. She is waiting for a bed on the cardiac stepdown unit. She remains on IV heparin. She is on room air. She's getting saline at KVO. Labs, x-rays, and medications are reviewed. It was decided by cardiothoracic surgery, the patient was too high risk for bypass surgery. Plan dated 05/29/2022. The patient is seen, interviewed, and examined, in room 256. Currently, she is on room air. She's getting saline at KVO. Clinically she is doing well. She denies any shortness of breath, cough, wheezing, phlegm production, chest pain, chest pressure, palpitations/fluttering, or any other complaints for that matter. Labs, x-rays, and medications are reviewed. The patient is awaiting a bed out on the cardiac floor. We will continue to follow make recommendations along the way. She was seen by cardiothoracic surgery, and was not thought to be a surgical candidate at this point. Time with Patient: Less than 30
[2022-05-29 06:17] LABS: HCT 37.9 % (34.0-46.0); MCH 31.1 pg (25.0-35.0); MCHC 34.2 g/dL (31.0-37.0); MCV 91.1 fL (80.0-100.0); Mean Platelet Volume 11.1; Platelet Count 125 k/uL (150-450); RBC 4.17 m/uL (3.80-5.40); RDW 13.9 % (11.5-15.5); WBC 7.7 k/uL (3.8-10.6)
[2022-05-29 06:38] LABS: Calcium 8.7 mg/dL (8.4-10.2); Potassium 4.1 mmol/L (3.5-5.1)
[2022-05-29 07:03] LABS: Glucose,Whole Blood 144 mg/dL (70-110)
[2022-05-29] MEDS: SODIUM CHLORIDE 0.9% 1,000 ML IV SCH (07:07)
--- NOTE | 2022-05-29 07:11 | P.PN ---
Subjective Progress Note Date: 05/29/22 PROGRESS NOTE The patient is a 77-year-old female with a known history of CAD, status post multivessel PCI who presented with non-STEMI. Underwent cardiac catheterization and was evaluated by the surgical team and was felt to have a high risk for surgical intervention. She was evaluated by Dr. Foley for PCI. She has done well since yesterday. She has no further chest discomfort and her breathing is stable. She denies any dizziness or palpitations. She continues to be in sinus mechanism with no evidence of malignant arrhythmia. Medications: Amlodipine 5 mg daily, aspirin once a day, Plavix 75 mg daily, Lasix 40 mg daily, IV heparin, insulin, Zestril 40 mg daily, metoprolol succinate 50 mg da jett, Nitropaste PHYSICAL EXAMINATION: Blood pressure 102/50 heart rate 60 LUNGS: [Clear to auscultation] HEART: [Regular rate and rhythm, S1, S2. No S3. systolic ejection murmur] ABDOMEN: [Soft, nontender, no organomegaly] EXTREMETIES: [+1 edema] LAB: BUN 22, creatinine 1.15 IMPRESSION: 1. Status post non-STEMI with severe triple-vessel disease, high risk for surgical intervention 2. Status post multivessel stenting was chronic total occlusion of the RCA 3. History of hypertension 4. Cardiomyopathy PLAN: 1. Add statin 2. Continue beta darian and CHRISTIAN inhibitor 3. Stop amlodipine 4. Proceed with PCI by Dr. Foley in the next 24 hours, discussed with patient. Objective - Vital Signs Vital signs: Vital Signs Temp 98.1 F 05/29/22 04:00 Pulse 59 L 05/29/22 04:00 Resp 22 05/29/22 04:00 BP 102/48 05/29/22 04:00 Pulse Ox 95 05/29/22 04:00 FiO2 Intake & Output 05/28/22 05/29/22 05/29/22 18:59 06:59 18:59 Intake Total 450 487.813 Output Total 450 500 Balance 0 -12.187 Intake: IV 200 0.9 200 Intake, IV Titration 250 247.813 Amount Heparin Sod,Pork in 0.45% 250 247.813 NaCl 25,000 unit In 0.45 % NaCl 1 250ml.bag @ 13. 71 mls/hr IV .[id number] [facility] Rx#:[id number] Oral 240 Output: Urine 450 500 Other: Voiding Method Bedside Commode Bedside Commode - Labs CBC & Chem 7: 05/29/22 05:59 05/29/22 05:59 Labs: Abnormal Lab Results - Last 24 Hours (Table) 05/28/22 05/28/22 05/29/22 Range/Units 11:30 17:07 00:13 Plt Count (150-450) k/uL APTT (22.0-30.0) sec Chloride (98-107) mmol/L BUN (7-17) mg/dL Creatinine (0.52-1.04) mg/dL Glucose (74-99) mg/dL POC Glucose (mg/dL) 120 H 199 H 170 H (70-110) mg/dL 05/29/22 05/29/22 05/29/22 Range/Units 05:59 05:59 05:59 Plt Count 125 L (150-450) k/uL APTT 59.9 H (22.0-30.0) sec Chloride 108 H (98-107) mmol/L BUN 22 H (7-17) mg/dL Creatinine 1.15 H (0.52-1.04) mg/dL Glucose 143 H (74-99) mg/dL POC Glucose (mg/dL) (70-110) mg/dL 05/29/22 Range/Units 07:01 Plt Count (150-450) k/uL APTT (22.0-30.0) sec Chloride (98-107) mmol/L BUN (7-17) mg/dL Creatinine (0.52-1.04) mg/dL Glucose (74-99) mg/dL POC Glucose (mg/dL) 144 H (70-110) mg/dL Microbiology - Last 24 Hours (Table) 05/26/22 09:37 Nasal Screen MRSA/MSSA - Final Nasal Swab
[2022-05-29] MEDS ORDERED: ALPRAZolam 0.5 MG TAB PO PRN (07:43)
[2022-05-29] MEDS ORDERED: NITROGLYCERIN SL TABS 0.4 MG TAB SUBLINGUAL PRN (07:43)
[2022-05-29] MEDS ORDERED: ASPIRIN 325 MG TAB PO STA (07:43)
[2022-05-29] MEDS ORDERED: ALPRAZolam 0.25 MG TAB PO PRN (07:43)
[2022-05-29] MEDS ORDERED: ATORVASTATIN 80 MG TAB PO STA (07:43)
[2022-05-29 08:43] LABS: Glucose,Whole Blood 162 mg/dL (70-110)
[2022-05-29] MEDS ORDERED: METOPROLOL SUCCINATE (ER) 25 MG TAB.ER.24H PO SCH (09:00)
[2022-05-29] MEDS: NON FORMULARY DRUG (Acetylcysteine [Nac] 600 MG Tablet) PO SCH (09:04)
[2022-05-29] MEDS: INSULN ASP PRT/INSULIN ASPART 100 UNIT/ML 10 ML VIAL SQ SCH ×2 (09:14→17:02)
[2022-05-29] MEDS: ASCORBIC ACID 500 MG TAB PO SCH (09:14)
[2022-05-29] MEDS: CYANOCOBALAMIN 500 MCG TAB PO SCH (09:14)
[2022-05-29] MEDS: ZINC SULFATE 220 MG CAP PO SCH (09:14)
[2022-05-29] MEDS: MAGNESIUM OXIDE 400 MG TAB PO SCH (09:15)
[2022-05-29] MEDS: CLOPIDOGREL 75 MG TAB PO SCH (09:15)
[2022-05-29] MEDS: FUROSEMIDE 40 MG TAB PO SCH (09:15)
[2022-05-29 11:29] LABS: Glucose,Whole Blood 198 mg/dL (70-110)
[2022-05-29 16:28] LABS: Glucose,Whole Blood 164 mg/dL (70-110)
[2022-05-29] MEDS ORDERED: METOPROLOL SUCCINATE (ER) 25 MG TAB.ER.24H PO STA (17:40)
--- NOTE | 2022-05-29 20:15 | P.PN ---
Progress Note - Text Progress Note Date: 05/29/22 Chief Complaint: Chest pain This is a pleasant 76-year-old patient who follows with Dr. Miller. 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 Chronic stable medical conditions include diabetes, hypertension, hyperlipidemia, CAD with stent 5 in 2019. Patient was admitted here in March with CHF exacerbation. Patient states that she's had chest pain on and off for some time. Close to a year ago patient did have a stress test as well as negative. Patient was scheduled to have another stress test. Presented today with much increasing chest pain. The normal. Nitroglycerin has sometimes other times not. No shortness of breath no fever or chills no cough. Patient has chronic lower extremity edema. Patient is described pain as all over the chest. No dizziness no lightheadedness. No radiation. May 26: Underwent cardiac catheterization this morning by Dr. Salazar. Was found to have three-vessel CAD with chronically occluded RCA, with xhyb-bg-[id number] collaterals, patent stents and a possibly plaque rupture in the LAD and significant stenosis involving the ostial OM. And the diagonal branches. Dr. Hunt from cardiothoracic surgery evaluated the patient for three-vessel bypass. Patient was concerned about her findings. Had a lengthy discussion with the patient. And reassured about the findings in terms of treatment and outcomes. She feels better. On IV heparin. May 27: Up in a chair. Had a small episode of chest pain today. Remains on IV heparin. Per cardiothoracic team: Recommend angioplasty. If not then recommends JESUS to look anatomy will closely.. May 28: Up in a chair. Somewhat tearful about once going on. Reassured. IV heparin. Possible intervention tomorrow/Sunday by Dr. Foley. May 29: Up in a chair. Seen by cardiology earlier. Statin added. Amlodipine discontinued. Possible intervention in the next 24 hours Active Medications Acetaminophen (Acetaminophen Tab 325 Mg Tab) 650 mg PO Q6HR PRN PRN Reason: Mild Pain or Fever > 100.5 Alprazolam (Alprazolam 0.25 Mg Tab) 0.25 mg PO Q6HR PRN PRN Reason: Mild Anxiety Alprazolam (Alprazolam 0.5 Mg Tab) 0.5 mg PO Q6HR PRN PRN Reason: Moderate Anxiety Ascorbic Acid (Ascorbic Acid 500 Mg Tab) 1,000 mg PO DAILY [facility] Last Admin: 05/29/22 09:14 Dose: 1,000 mg Aspirin (Aspirin 81 Mg) 81 mg PO DAILY [facility] Atorvastatin Calcium (Atorvastatin 40 Mg Tab) 40 mg PO DAILY [facility] Benzocaine/Menthol (Benzocaine/Menthol Lozeng 1 Each Lozenge) 1 each MUCOUS MEM Q4HR PRN PRN Reason: cough Calcium Carbonate/Glycine (Calcium Carbonate 500 Mg Chewable) 1,000 mg PO Q4HR PRN PRN Reason: Dyspepsia Clopidogrel Bisulfate (Clopidogrel 75 Mg Tab) 75 mg PO DAILY [facility] Last Admin: 05/29/22 09:15 Dose: 75 mg Cyanocobalamin (Cyanocobalamin 500 Mcg Tab) 500 mcg PO DAILY [facility] Last Admin: 05/29/22 09:14 Dose: 500 mcg Ergocalciferol (Ergocalciferol 1,250 Mcg (50,000 Iu) Capsule) 1,250 mcg PO SAMUELS [facility] Last Admin: 05/28/22 09:10 Dose: 1,250 mcg Furosemide (Furosemide 40 Mg Tab) 40 mg PO DAILY [facility] Last Admin: 05/29/22 09:15 Dose: 40 mg Heparin Sodium (Porcine) (Heparin Sodium 1,000 Un/Ml (10ml Vl)) 0 unit IV PER PROTOCOL PRN; Protocol PRN Reason: Low PTT Last Admin: 05/26/22 11:56 Dose: 3,175 unit Sodium Chloride (Saline 0.9%) 1,000 mls @ 20 mls/hr IV .Q24H [facility] Last Admin: 05/29/22 07:07 Dose: 20 mls/hr Heparin Sodium/Sodium Chloride (25,000 unit/ Sodium Chloride) 250 mls @ 13.71 mls/hr IV .[id number] [facility]; Protocol Last Admin: 05/29/22 17:17 Dose: 1,625 units/hr, 16.25 mls/hr Heparin Sodium (Porcine) 10, (000 unit/ Sodium Chloride) 1,001 mls @ 999 mls/hr IRRIGATION ONCE PRN PRN Reason: INTRA-OP Stop: 05/30/22 23:00 Heparin Sodium (Porcine) 2,500 (unit/ Sodium Chloride) 250.5 mls @ 250 mls/hr IRRIGATION ONCE PRN PRN Reason: INTRA-OP Stop: 05/30/22 23:00 Insulin Aspart (Insuln Asp Prt/Insulin Aspart 100 Unit/Ml 10 Ml Vial) 35 unit SQ AC-BID [facility] Last Admin: 05/29/22 17:02 Dose: 35 unit Lactulose (Lactulose 20 Gm/30 Ml Cup) 20 gm PO DAILY PRN PRN Reason: Constipation Lisinopril (Lisinopril 20 Mg Tab) 40 mg PO HS [facility] Last Admin: 05/28/22 21:02 Dose: 40 mg Magnesium Oxide (Magnesium Oxide 400 Mg Tab) 400 mg PO DAILY [facility] Last Admin: 05/29/22 09:15 Dose: 400 mg Melatonin (Melatonin 3 Mg Tablet) 3 mg PO HS PRN PRN Reason: Insomnia Metoprolol Succinate (Metoprolol Succinate (Er) 25 Mg Tab.Er.24h) 75 mg PO DAILY [facility] Naloxone HCl (Naloxone 0.4 Mg/Ml 1 Ml Vial) 0.2 mg IV Q2M PRN PRN Reason: Opioid Reversal Nitroglycerin (Nitroglycerin Oint 1 Inch/Gm Packet) 0.5 inch TOPICAL Q6HR [facility] Last Admin: 05/29/22 17:17 Dose: 0.5 inch Nitroglycerin (Nitroglycerin Sl Tabs 0.4 Mg Tab) 0.4 mg SUBLINGUAL Q5M PRN PRN Reason: Chest Pain Non-Formulary Medication (Acetylcysteine [Nac]) 600 mg PO DAILY [facility] Last Admin: 05/29/22 09:04 Dose: Not Given Ondansetron HCl (Ondansetron 4 Mg/2 Ml Vial) 4 mg IVP Q8HR PRN PRN Reason: Nausea And Vomiting Zinc Sulfate (Zinc Sulfate 220 Mg Cap) 220 mg PO DAILY [facility] Last Admin: 05/29/22 09:14 Dose: 220 mg Past medical history to include: Diabetes, hypertension, hyperlipidemia, [place] in 2010, CAD with stent in 2019 Social history: . No smoking or alcohol Physical examination: VITAL SIGNS: 98.2, 74, 16, 107/49, 96% room air GENERAL: BMI 51.2, up in a chair EYES: Pupils equal. Conjunctiva normal. HEENT: External appearance of nose and ears normal, oral cavity grossly normal. NECK: JVD not raised; masses not palpable. HEART: First and second heart sounds are normal; some edema. LUNGS: Respiratory rate increased; decreased breath sound. ABDOMEN: Soft, nontender, liver spleen not palpable, no masses palpable. PSYCH: Alert and oriented x3; mood and affect a bit tearful MUSCULOSKELETAL:No Clubbing/cyanosis;muscles-grossly intact. OA INVESTIGATIONS, reviewed in the clinical context: May 29: WBC 7.7 hemoglobin 13 potassium 4.1 BUN 22 creatinine 1.15 May 28: White count and hemoglobin 13.5 platelets 159 potassium 4.6 BUN 25 creatinine 1.20 May 27: White count 10.1 hemoglobin 14.7 platelets. 9 potassium 4.5. 27 crea tinine 1.27 2-D echocardiogram [May 26] EF 35-40%. Wall motion abnormality. May 26: White count 8.2 hemoglobin 14.1 platelets 143 potassium 5.1 BUN 27 creatinine 1.25 HbA1c 6.5 TSH 1.6 EKG tracing personally reviewed by me-sinus tachycardia. ST-T wave changes. Across. Chest x-ray film personally reviewed by me-cardiomegaly. Prominent pulmonary artery WBC 8.3 hemoglobin 14.5 platelets 172 sodium 137 potassium 4.9 BUN 23 creatinine 1.23, Troponin I 0.0118, 0.608 Assessment and plan: -Acute non-Q-wave [place]. Known CAD. Aspirin, IV heparin, beta darian -3-vessel CAD with chronically occluded RCA, with hyyz-vj-ycuyf collaterals, patent stents and a possibly plaque rupture in the LAD and significant stenosis involving the ostial OM. And the diagonal branches: Slow to respond Aspirin, Toprol-XL, Zestril, Lipitor. Angioplasty pending by Dr. Foley possibly tomorrow -IV heparin monitoring, follow PTT -chronic congestive diastolic heart failure of systolic dysfunction, EF 35-40%, ischemic cardiomyopathy Lasix Aldactone-held for now -Diabetes mellitus type 2, chronically on insulin Humalog mix 75/25 twice a day follow Accu-Cheks with sliding scale -Essential hypertension Toprol-XL, Vasotec amlodipine -Acute kidney injury, likely prerenal. Creatinine was 0.98 on 03/21/2022. . Hold diuretics. -Morbid obesity BMI 51.2 Weight loss measures. Follow with PCP. Discussed with patient. Continue current medications. Lipitor added. Amlodipine discontinued. Possible intervention tomorrow.
[2022-05-29] MEDS: lisinopriL 20 MG TAB PO SCH (21:23)
--- NOTE | 2022-05-29 22:00 | PN ---
PROGRESS NOTE This is a 77-year-old obese lady with multiple comorbid conditions, who presented with a [id number] IA. Cardiac catheterization revealed a total occlusion of RCA, chronic total occlusion. Obtuse marginal had a significant disease and diagonal. LAD had also moderate disease, which was seen in the stented area. However, she was advised the surgery given the fact she would have complete revascularization, but Dr. Hunt felt that she was a very high risk for surgical intervention and suggested a percutaneous approach. I discussed with the patient the options. We will first try PCI of the circumflex and then perform FFR of the LAD. Based on this, we will consider intervention of the LAD and/or diagonal. I explained to the patient, son, and daughter the risk is high, more than 10% of complication rate. They understand all details and wish to proceed with the procedure. I will try from the right radial approach. The patient has been well hydrated. Creatinine is 1.15. She is on optimal medications at this time. No rest symptoms. Prognosis remains guarded. Procedure is set for 10:30 a.m., tomorrow. The patient and family understand all details and wish to proceed with the procedure. MMODL / IJN: [id number] /
[2022-05-29 23:32] LABS: Glucose,Whole Blood 69 mg/dL (70-110)
[2022-05-29 23:51] LABS: Glucose,Whole Blood 99 mg/dL (70-110)
[2022-05-30] MEDS: SODIUM CHLORIDE 0.9% 1,000 ML IV SCH (03:25)
[2022-05-30] MEDS: NITROGLYCERIN OINT 1 INCH/GM PACKET TOPICAL SCH ×4 (05:38→17:51)
[2022-05-30] MEDS: CLOPIDOGREL 75 MG TAB PO SCH (05:43)
[2022-05-30] MEDS: ASCORBIC ACID 500 MG TAB PO SCH (05:43)
[2022-05-30] MEDS: MAGNESIUM OXIDE 400 MG TAB PO SCH (05:43)
[2022-05-30] MEDS: ZINC SULFATE 220 MG CAP PO SCH (05:43)
[2022-05-30] MEDS: ASPIRIN 81 MG PO SCH (05:44)
[2022-05-30] MEDS: CYANOCOBALAMIN 500 MCG TAB PO SCH (05:44)
[2022-05-30] MEDS: NON FORMULARY DRUG (Acetylcysteine [Nac] 600 MG Tablet) PO SCH (06:02)
[2022-05-30 06:16] LABS: Glucose,Whole Blood 106 mg/dL (70-110)
[2022-05-30] MEDS ORDERED: HEPARIN SODIUM,PORCINE 10,000 UNIT in SODIUM CHLORIDE 0.9% 1,000 ML IRRIGATION PRN (07:00)
[2022-05-30] MEDS ORDERED: HEPARIN SODIUM,PORCINE 2,500 UNIT in SODIUM CHLORIDE 0.9% 250 ML IRRIGATION PRN (07:00)
[2022-05-30 08:20] LABS: HCT 40.8 % (34.0-46.0); HGB 13.3 gm/dL (11.4-16.0); MCH 30.3 pg (25.0-35.0); MCHC 32.7 g/dL (31.0-37.0); MCV 92.8 fL (80.0-100.0); Mean Platelet Volume 10.9; Platelet Count 146 k/uL (150-450); RBC 4.39 m/uL (3.80-5.40); RDW 13.8 % (11.5-15.5); WBC 8.3 k/uL (3.8-10.6)
[2022-05-30 08:46] LABS: Glucose,Whole Blood 131 mg/dL (70-110)
[2022-05-30 08:49] LABS: Calcium 9.2 mg/dL (8.4-10.2); Potassium 5.1 mmol/L (3.5-5.1)
[2022-05-30] MEDS ORDERED: METOPROLOL SUCCINATE (ER) 25 MG TAB.ER.24H PO SCH ×2 (09:00→21:33)
[2022-05-30] MEDS ORDERED: ATORVASTATIN 40 MG TAB PO SCH (09:00)
[2022-05-30] MEDS ORDERED: VERAPAMIL 2.5 MG/ML 2 ML AMP ONE (10:02)
[2022-05-30] MEDS ORDERED: HEPARIN SODIUM 1,000 UN/ML (10ML VL) ONE (10:24)
--- NOTE | 2022-05-30 10:33 | P.PN ---
Subjective Progress Note Date: 05/30/22 77-year-old female with history of multiple medical problems including coronary disease, previous myocardial infarction, multiple stent placements, hypertension, hyperlipidemia, diabetes, and chronic kidney disease. The patient has had 6 cardiac stents in the past. Minute to the hospital, with chest pain, on May 25, and was found to have a non-ST segment elevation myocardial infarction. She's currently being evaluated by cardiothoracic surgery for bypass grafting. She's currently in the ICU at room 256. The patient is on 2 L of oxygen. Receiving IV nitroglycerin at 10 mcg/m, and IV heparin via weightbase protocol. The patient's also receiving saline at KVO. The patient is scheduled to have a bedside spirometry. She has just been evaluated by cardiothoracic surgery. Current labs include a sodium 137, potassium 5.1, chlorides 106, CO2 21, BUN 27 creatinine 1.25. Thyroid function is normal. Chest x-ray is positive for cardiomegaly, and possible chronic interstitial lung disease. Progress note dated 05/27/2022. 77-year-old female seen yesterday in consultation. She seen again today in the intensive care unit, room 256. It was decided by surgery, the patient was not a good surgical candidate for bypass procedure. Hence, the patient will be treated medically. She's currently on 2 L of oxygen. She is receiving IV heparin. She is getting saline at 75 mL per hour. White count 10.1, hemoglobin 14.7, hematocrit 43.2, and platelet count was normal. PTT was 70.6. Sodium 139, potassium 4.5, chlorides 106, CO2 29, BUN 27, and creatinine 1.27. Progress note dated 05/28/2022. 77-year-old female seen today in the intensive care unit, room 256. The patient's on room air. She's getting saline at KVO. She remains on IV heparin. She received Lasix 40 mg IV push, from cardiology yesterday. Patient had an uneventful night. She is waiting for a bed out on the cardiac floor. CBC today is normal. PTT is 67. Sodium 136, potassium 4.6, chlorides 101, CO2 32, BUN 2 5, and creatinine 1.20. Progress note dated 05/29/2022. 77-year-old female seen again today in the intensive care unit, room 256. The patient's on room air. She's receiving saline at KVO. Clinically, she had an uneventful night and day. According to the nurse, she is doing well. She was waiting for a bed out on the cardiology floor. Her glucose was measured at 170. The patient denies any chest pain or chest discomfort, palpitations, shortness of breath, cough, wheezing, or phlegm production. On 05/30/2022, the patient is being seen in a follow-up. The patient is going to undergo a cardiac catheterization today. IV fluids are KVO. The patient on room air oxygen. No other significant events overnight. Blood work from today shows edematous count 8.3 hemoglobin 15.3 and a platelet count of 46. BUN is at 20 with a creatinine of 1.2 and a sodium level is at 139. Medication was noted. The patient remains on Lasix 40 mg by mouth daily. The patient is on IV heparin. Cardiology is on the case. Echocardiogram showed systolic heart failure with an ejection fraction of 35-40%. There is severely increased left ventricular mass. Increase in wall thickness. LV is quite dila bernadette and the patient has +2 mitral regurgitation. Objective - Vital Signs Vital signs: Vital Signs Temp 97.7 F 05/30/22 08:35 Pulse 78 05/30/22 08:35 Resp 16 05/30/22 08:35 BP 136/63 05/30/22 08:35 Pulse Ox 95 05/30/22 08:35 FiO2 Intake & Output 05/29/22 05/30/22 05/30/22 18:59 06:59 18:59 Intake Total 430 117.271 Output Total 900 100 Balance -470 17.271 Weight 129.8 kg 129.3 kg Intake: IV 180 0.9 180 Intake, IV Titration 250 117.271 Amount Heparin Sod,Pork in 0.45% 250 117.271 NaCl 25,000 unit In 0.45 % NaCl 1 250ml.bag @ 13. 71 mls/hr IV .[id number] [facility] Rx#:[id number] Output: Urine 900 100 Other: Voiding Method Bedside Commode Bedside Commode # Voids 1 - Exam No acute distress, oriented 3. Obese white female. Currently on room air. Saturations are 96 %. HEENT examination is grossly unremarkable. Neck supple. Full range of motion. No adenopathy thyromegaly or neck vein distention. Cardiovascular examination reveals regular rhythm rate. S1-S2 normal. No S3 or S4. No discernible murmur noted. Heart rate is 59 bpm. Heart sounds are distant. Lungs reveal clear breath sounds. Breath sounds are equal bilaterally. No adventitious lung sounds including wheezes rhonchi or crackles. Room air saturations are 96 %. Abdomen soft bowel sounds are heard. No masses or tenderness. Extremities are intact. No cyanosis clubbing or edema. Skin is without rash or lesion. Neurologic examination is brief but nonfocal. - Labs CBC & Chem 7: 05/30/22 07:42 05/30/22 07:42 Labs: Abnormal Lab Results - Last 24 Hours (Table) 05/29/22 05/29/22 05/29/22 Range/Units 11:27 16:26 23:30 Plt Count (150-450) k/uL BUN (7-17) mg/dL Creatinine (0.52-1.04) mg/dL Glucose (74-99) mg/dL POC Glucose (mg/dL) 198 H 164 H 69 L (70-110) mg/dL 05/30/22 05/30/22 05/30/22 Range/Units 07:42 07:42 08:44 Plt Count 146 L (150-450) k/uL BUN 20 H (7-17) mg/dL Creatinine 1.26 H (0.52-1.04) mg/dL Glucose 123 H (74-99) mg/dL POC Glucose (mg/dL) 131 H (70-110) mg/dL Assessment and Plan Plan: Acute non-ST segment elevation myocardial infarction, with known history of CAD, and PCI with previous stents 6. Cardiomyopathy with dilated LV and systolic heart failure with +2 mitral regurgitation and the patient is an ejection fraction of 35-40% History of previous myocardial infarction, 2. History of hypertension. Hyperlipidemia. Diabetes mellitus. Chronic kidney disease. Obesity. Lifelong nonsmoker. Plan Proceed with cardiac catheterization Awaiting further recommendations from cardiology [facility] We'll follow
[2022-05-30] MEDS ORDERED: ASPIRIN 81 MG ONE (10:35)
[2022-05-30] MEDS ORDERED: ASPIRIN 81 MG PO ONE (10:39)
[2022-05-30] MEDS ORDERED: MIDAZOLAM 2 MG/2 ML VIAL IV ONE (10:39)
[2022-05-30] MEDS ORDERED: SODIUM CHLORIDE 0.9% 1,000 ML IV ONE (10:40)
[2022-05-30] MEDS ORDERED: LIDOCAINE 1% INJ 10MG/ML (5 ML VIAL-PF) SQ ONE (10:44)
[2022-05-30] MEDS ORDERED: VERAPAMIL SYRINGE (5 MG/10 ML) INTRAARTER ONE (11:00)
[2022-05-30] MEDS ORDERED: HEPARIN SODIUM 1,000 UN/ML (10ML VL) IV ONE (11:05)
[2022-05-30] MEDS ORDERED: IOPAMIDOL-370 100ML BTL INJ ONE ×3 (11:43→13:30)
[2022-05-30] MEDS ORDERED: FUROSEMIDE 10 MG/ML 4 ML VIAL ONE ×2 (11:48→12:11)
[2022-05-30] MEDS: FUROSEMIDE 10 MG/ML 4 ML VIAL IV ONE ×2 (11:49→11:57)
[2022-05-30] MEDS ORDERED: MORPHINE SULFATE 4 MG/ML SYRINGE ONE (11:51)
[2022-05-30] MEDS: MORPHINE SULFATE 4 MG/ML SYRINGE IV ONE ×2 (11:53→12:37)
[2022-05-30] MEDS ORDERED: FUROSEMIDE 10 MG/ML 4 ML VIAL IV ONE (12:12)
[2022-05-30] MEDS ORDERED: NITROGLYCERIN SL TABS 0.4 MG TAB SUBLINGUAL ONE ×4 (12:17→12:37)
[2022-05-30] MEDS ORDERED: CLOPIDOGREL 75 MG TAB ONE (12:35)
[2022-05-30] MEDS ORDERED: NITROGLYCERIN 1000MCG/10ML SYRINGE IV ONE (12:37)
[2022-05-30] MEDS: FUROSEMIDE 100 MG in SODIUM CHLORIDE 0.9% 90 ML IV SCH ×2 (12:50→21:22)
[2022-05-30] MEDS ORDERED: CLOPIDOGREL 75 MG TAB PO ONE (12:52)
[2022-05-30] MEDS ORDERED: ONDANSETRON 4 MG/2 ML VIAL ONE (13:05)
[2022-05-30] MEDS ORDERED: ONDANSETRON 4 MG/2 ML VIAL IVP ONE (13:07)
[2022-05-30 13:23] LABS: Glucose,Whole Blood 233 mg/dL (70-110)
[2022-05-30] MEDS ORDERED: NITROGLYCERIN-D5W PMX 50 MG in DEXTROSE/WATER 1 250ML.BAG IV SCH (13:45)
[2022-05-30] MEDS: INSULN ASP PRT/INSULIN ASPART 100 UNIT/ML 10 ML VIAL SQ SCH ×2 (13:48→16:47)
[2022-05-30] MEDS: FUROSEMIDE 40 MG TAB PO SCH (13:49)
[2022-05-30 16:25] LABS: Glucose,Whole Blood 227 mg/dL (70-110)
[2022-05-30 18:37] LABS: Calcium 8.7 mg/dL (8.4-10.2); Magnesium 2.1 mg/dL (1.6-2.3); Potassium 4.9 mmol/L (3.5-5.1)
[2022-05-30 20:03] LABS: Glucose,Whole Blood 252 mg/dL (70-110)
[2022-05-30] MEDS: HEPARIN SODIUM,PORCINE/PF 5,000 UNIT/0.5 ML SYRINGE SQ SCH (20:08)
[2022-05-30] MEDS ORDERED: lisinopriL 20 MG TAB PO SCH (21:00)
--- NOTE | 2022-05-30 21:42 | P.PN ---
Progress Note - Text Progress Note Date: 05/30/22 Chief Complaint: Chest pain This is a pleasant 76-year-old patient who follows with Dr. Miller. Sausage Smoker Dr. Krause. Chronic stable medical conditions include diabetes, hypertension, hyperlipidemia, CAD with stent 5 in 2019. Patient was admitted here in March with CHF exacerbation. Patient states that she's had chest pain on and off for some time. Close to a year ago patient did have a stress test as well as negative. Patient was scheduled to have another stress test. Presented today with much increasing chest pain. The normal. Nitroglycerin has sometimes other times not. No shortness of breath no fever or chills no cough. Patient has chronic lower extremity edema. Patient is described pain as all over the chest. No dizziness no lightheadedness. No radiation. May 26: Underwent cardiac catheterization this morning by Dr. Salazar. Was found to have three-vessel CAD with chronically occluded RCA, with [id number] collaterals, patent stents and a possibly plaque rupture in the LAD and significant stenosis involving the ostial OM. And the diagonal branches. Dr. Hunt from cardiothoracic surgery evaluated the patient for three-vessel bypass. Patient was concerned about her findings. Had a lengthy discussion with the patient. And reassured about the findings in terms of treatment and outcomes. She feels better. On IV heparin. May 27: Up in a chair. Had a small episode of chest pain today. Remains on IV heparin. Per cardiothoracic team: Recommend angioplasty. If not then recommends JESUS to look anatomy will closely.. May 28: Up in a chair. Somewhat tearful about once going on. Reassured. IV heparin. Possible intervention tomorrow/Sunday by Dr. Foley. May 29: Up in a chair. Seen by cardiology earlier. Statin added. Amlodipine discontinued. Possible intervention in the next 24 hours May 30: ICU: Post procedure. Pertinent a nurse patient had 2 stents in the circumflex and 1 and OM today. Just falling that patient became very short of breath. Patient is put on IV nitro drip and IV Lasix drip. Diagnosed well. Then brought to the ICU. Patient put out about significant urine. Discussed patient. Reassured. Patient is currently on IV Lasix drip. No heparin drip. Currently on 9 L of oxygen Active Medications Acetaminophen (Acetaminophen Tab 325 Mg Tab) 650 mg PO Q6HR PRN PRN Reason: Mild Pain or Fever > 100.5 Last Admin: 05/30/22 15:09 Dose: 650 mg Alprazolam (Alprazolam 0.25 Mg Tab) 0.25 mg PO Q6HR PRN PRN Reason: Mild Anxiety Alprazolam (Alprazolam 0.5 Mg Tab) 0.5 mg PO Q6HR PRN PRN Reason: Moderate Anxiety Ascorbic Acid (Ascorbic Acid 500 Mg Tab) 1,000 mg PO DAILY [facility] Last Admin: 05/30/22 05:43 Dose: 1,000 mg Aspirin (Aspirin 81 Mg) 81 mg PO DAILY [facility] Last Admin: 05/30/22 05:44 Dose: 81 mg Atorvastatin Calcium (Atorvastatin 40 Mg Tab) 40 mg PO DAILY [facility] Last Admin: 05/30/22 05:43 Dose: 40 mg Benzocaine/Menthol (Benzocaine/Menthol Lozeng 1 Each Lozenge) 1 each MUCOUS MEM Q4HR PRN PRN Reason: cough Calcium Carbonate/Glycine (Calcium Carbonate 500 Mg Chewable) 1,000 mg PO Q4HR PRN PRN Reason: Dyspepsia Clopidogrel Bisulfate (Clopidogrel 75 Mg Tab) 75 mg PO DAILY [facility] Last Admin: 05/30/22 05:43 Dose: 75 mg Cyanocobalamin (Cyanocobalamin 500 Mcg Tab) 500 mcg PO DAILY [facility] Last Admin: 05/30/22 05:44 Dose: 500 mcg Ergocalciferol (Ergocalciferol 1,250 Mcg (50,000 Iu) Capsule) 1,250 mcg PO SAMUELS [facility] Last Admin: 05/28/22 09:10 Dose: 1,250 mcg Heparin Sodium (Porcine) (Heparin Sodium,Porcine/Pf 5,000 Unit/0.5 Ml Syringe) 5,000 unit SQ Q12HR [facility] Last Admin: 05/30/22 20:08 Dose: 5,000 unit Sodium Chloride (Saline 0.9%) 1,000 mls @ 60 mls/hr IV .[id number] [facility] Last Admin: 05/30/22 03:25 Dose: Not Given Heparin Sodium (Porcine) 10, (000 unit/ Sodium Chloride) 1,001 mls @ 999 mls/hr IRRIGATION ONCE PRN PRN Reason: INTRA-OP Stop: 05/30/22 23:00 Heparin Sodium (Porcine) 2,500 (unit/ Sodium Chloride) 250.5 mls @ 250 mls/hr IRRIGATION ONCE PRN PRN Reason: INTRA-OP Stop: 05/30/22 23:00 Furosemide 100 mg/ Sodium (Chloride) 100 mls @ 7 mls/hr IV .[id number] [facility] Last Admin: 05/30/22 21:22 Dose: 7 mg/hr, 7 mls/hr Nitroglycerin/Dextrose 50 mg/ (IV Solution) 250 mls @ 3 mls/hr IV .Q24H [facility]; Protocol Last Titration: 05/30/22 17:51 Dose: 0 mcg/min, 0 mls/hr Insulin Aspart (Insuln Asp Prt/Insulin Aspart 100 Unit/Ml 10 Ml Vial) 35 unit SQ AC-BID [facility] Last Admin: 05/30/22 16:47 Dose: 35 unit Lactulose (Lactulose 20 Gm/30 Ml Cup) 20 gm PO DAILY PRN PRN Reason: Constipation Lisinopril (Lisinopril 20 Mg Tab) 20 mg PO HS [facility] Last Admin: 05/30/22 20:07 Dose: 20 mg Magnesium Oxide (Magnesium Oxide 400 Mg Tab) 400 mg PO DAILY [facility] Last Admin: 05/30/22 05:43 Dose: 400 mg Melatonin (Melatonin 3 Mg Tablet) 3 mg PO HS PRN PRN Reason: Insomnia Metoprolol Succinate (Metoprolol Succinate (Er) 25 Mg Tab.Er.24h) 75 mg PO DAILY [facility] Naloxone HCl (Naloxone 0.4 Mg/Ml 1 Ml Vial) 0.2 mg IV Q2M PRN PRN Reason: Opioid Reversal Nitroglycerin (Nitroglycerin Oint 1 Inch/Gm Packet) 0.5 inch TOPICAL Q6HR [facility] Last Admin: 05/30/22 17:51 Dose: Not Given Nitroglycerin (Nitroglycerin Sl Tabs 0.4 Mg Tab) 0.4 mg SUBLINGUAL Q5M PRN PRN Reason: Chest Pain Non-Formulary Medication (Acetylcysteine [Nac]) 600 mg PO DAILY [facility] Last Admin: 05/30/22 06:02 Dose: Not Given Ondansetron HCl (Ondansetron 4 Mg/2 Ml Vial) 4 mg IVP Q8HR PRN PRN Reason: Nausea And Vomiting Zinc Sulfate (Zinc Sulfate 220 Mg Cap) 220 mg PO DAILY [facility] Last Admin: 04/18/23 05:43 Dose: 220 mg Past medical history to include: Diabetes, hypertension, hyperlipidemia, [place] in 2010, CAD with stent in 2019 Social history: . No smoking or alcohol Physical examination: VITAL SIGNS: 98.1, 71, 21, 1 37 x 71, 93% on 9 L GENERAL: BMI 51.2, declining bed, some shortness of breath EYES: Pupils equal. Conjunctiva normal. HEENT: External appearance of nose and ears normal, oral cavity grossly normal. NECK: JVD not raised; masses not palpable. HEART: First and second heart sounds are normal; some edema. LUNGS: Respiratory rate increased; decreased breath sound. ABDOMEN: Soft, nontender, liver spleen not palpable, no masses palpable. PSYCH: Alert and oriented x3; mood and affect anxious MUSCULOSKELETAL:No Clubbing/cyanosis;muscles-grossly intact. OA INVESTIGATIONS, reviewed in the clinical context: May 30: Sodium 136 potassium 4.9 BUN 21 and creatinine 1.08 May 29: WBC 7.7 hemoglobin 13 potassium 4.1 BUN 22 creatinine 1.15 May 28: White count and hemoglobin 13.5 platelets 159 potassium 4.6 BUN 25 creatinine 1.20 May 27: White count 10.1 hemoglobin 14.7 platelets. 9 potassium 4.5. 27 creatinine 1.27 2-D echocardiogram [May 26] EF 35-40%. Wall motion abnormality. May 26: White count 8.2 hemoglobin 14.1 platelets 143 potassium 5.1 BUN 27 creatinine 1.25 HbA1c 6.5 TSH 1.6 EKG tracing personally reviewed by me-sinus tachycardia. ST-T wave changes. Across. Chest x-ray film personally reviewed by me-cardiomegaly. Prominent pulmonary artery WBC 8.3 hemoglobin 14.5 platelets 172 sodium 137 potassium 4.9 BUN 23 creatinine 1.23, Troponin I 0.0118, 0.608 Assessment and plan: -Acute non-Q-wave [place]. Known CAD. Aspirin, IV heparin, beta darian -3-vessel CAD with chronically occluded RCA, with [id number] collaterals, patent stents and a possibly plaque rupture in the LAD and significant stenosis involving the ostial OM. And the diagonal branches: Slow to respond Aspirin, Toprol-XL, Zestril, Lipitor. May 30: 2 stents to the circumflex and was stents to OM1 by Dr. JUAN CARLOS Foley. -Acute flash pulmonary edema following coronary intervention today [May 30]: Slow to respond patient is put on IV nitro drip followed by Nitropaste. IV Lasix drip. -IV heparin monitoring,-discontinued follow PTT -chronic congestive diastolic heart failure of systolic dysfunction, EF 35-40%, ischemic cardiomyopathy Lasix Aldactone-held for now -Diabetes mellitus type 2, chronically on insulin Humalog mix 75/25 twice a day follow Accu-Cheks with sliding scale -Essential hypertension Toprol-XL, Vasotec -Acute kidney injury, likely prerenal. Creatinine was 0.98 on 03/21/2022. . Hold diuretics. -Morbid obesity BMI 51.2 Weight loss measures. Follow with PCP. Stent to circumflex 2, and OM1. Postintervention acute flash pulmonary edema. Put on IV titrated IV Lasix drip. Currently on 9 L of oxygen. ICU.
--- NOTE | 2022-05-31 00:43 | PTCA ---
PERCUTANEOUSTRANS CORORONARY ANGIOGRAPHY DATE OF SERVICE: 05/30/2022. PROCEDURES PERFORMED: 1. Intravascular ultrasound of left circumflex coronary artery. 2. Shock wave lithotripsy of left circumflex coronary artery. 3. Percutaneous transluminal coronary angioplasty and stenting of first obtuse marginal branch of circumflex and main circumflex coronary artery. PERFORMED BY: Dr. Derek Foley. ANESTHESIA: Moderate conscious sedation time was 104 minutes. The patient was administered Versed and morphine. Oxygen saturation, hemodynamics, and EKG were monitored closely. CLINICAL INFORMATION: Ms. Sosa is a 77-year-old lady with a history of hypertension, diabetes, obesity, hyperlipidemia, and CAD, who underwent stenting of LAD in 2005, and multiple stents in RCA in 2010 and 2018, and recently came in with a [id number] UT. Cardiac catheterization by Dr. Krause on the of this month revealed a severe triple-vessel disease and was advised open-heart surgery. Physical evaluation was performed by Dr. Hunt, and he felt that she was too high risk for operation, and therefore, recommended PCI. I came in and saw the patient yesterday, met with the patient and her daughter as well as her son, and explained the high-risk nature of intervention, and I suggested I will do intervention of circumflex. RCA is of total occlusion, which I will not do any intervention. I will also check the FFR of the LAD and then make a decision. I would do this provided the circumflex intervention went well and the patient tolerated the procedure well. Her ejection fraction was 30%, and her left ventricular end-diastolic pressure was very high at 30 on Sunday, and she was diuresed. This was a high-risk PCI, and the patient is fully aware of it. She is morbidly obese, and femoral access was almost impossible. PROCEDURE NOTE: Under strict aseptic precautions and local anesthesia and using an ultrasound with a micropuncture needle technique with the help of my licensed nursing assistant, access was achieved into the right radial artery uneventfully. Subsequently, a 6-Mongolian introducer was placed. I used a CLS3.5 left guide catheter to cannulate the left coronary artery. A Runthrough wire was used to cross the lesion in the first obtuse marginal. I tried a 2.0 NC Trek balloon of 12 mm length, and I was able to dilate the first obtuse marginal lesion. I had difficulty advancing a stent into this location, and most of the obstruction was in the proximal circumflex before the origin of the first OM. I used a 2.5 caliber NC Trek balloon and dilated the proximal circumflex before the origin of the first obtuse marginal branch. After this, I was able to advance a 2.0 caliber, 12 mm long Zach Medtronic stent and deployed this at 14 atmospheres with excellent angiographic result. I then turned my attention to the main circumflex. The circumflex was heavily calcified. There was a significant lesion before bifurcation. This was addressed with a 3.0 caliber, 8 mm long Xience stent. I noted that distal to the stent just after bifurcation extending into the groove branch was a heavy chunk of calcium. Prior to placement of the 3.0 caliber stent, I performed shock wave lithotripsy of the circumflex extending into the groove branch and then deployed the 3.0 stent in the proximal circumflex just before bifurcation, and another 3.0 caliber stent was deployed into the groove branch over the calcified area. I then advanced a 3.5 caliber NC Trek balloon and dilated the entire proximal circumflex where I placed the 3.0 stents. Excellent dilatation was achieved. I then performed intravascular ultrasound and noted that there were good apposition and good expansion. At the site of heavy calcification, the apposition was good, but the expansion was suboptimal, and additional dilatation was then given at high pressures with 3.5 NC trek balloon, which improved the angiographic and ultrasound picture. The patient developed worsening heart failure and was hypoxic. I used initially intravenous Lasix and intravenous morphine and placed on a nonrebreather and subsequently on BiPAP. She improved somewhat and was then transferred to the ICU. The patient received heparin intravenously. ACT was very high and at the end of the procedure was 230. She also received 300 mg of Plavix. She was already on aspirin and Plavix combination. She will be on aspirin and Plavix without interruption for 1 year. Excellent angiographic result was achieved, but the patient developed worsening heart failure, treated with Lasix, morphine, and nonrebreather and was sent to the ICU in a hemodynamically stable condition. Details were discussed with the patient. Spoke to her and her son by phone. Prognosis remains guarded, but overall result angiographically is good. I will consider LAD assessment at a later time or we will do a stress test down the road. Discussed my thoughts in detail with the patient and her and son. She was sent to the ICU and hopefully will make good progress in the next 24 to 48 hours. MONE / LITA: [id number] /
[2022-05-31] MEDS: NITROGLYCERIN OINT 1 INCH/GM PACKET TOPICAL SCH ×4 (01:09→17:57)
[2022-05-31 02:11] LABS: Glucose,Whole Blood 211 mg/dL (70-110)
[2022-05-31] MEDS: SODIUM CHLORIDE 0.9% 1,000 ML IV SCH (03:52)
[2022-05-31 06:32] LABS: HCT 39.5 % (34.0-46.0); HGB 12.8 gm/dL (11.4-16.0); MCH 30.2 pg (25.0-35.0); MCHC 32.4 g/dL (31.0-37.0); MCV 93.1 fL (80.0-100.0); Mean Platelet Volume 10.6; Platelet Count 140 k/uL (150-450); RBC 4.25 m/uL (3.80-5.40); RDW 13.7 % (11.5-15.5); WBC 11.4 k/uL (3.8-10.6)
[2022-05-31 06:54] LABS: Glucose,Whole Blood 170 mg/dL (70-110)
[2022-05-31] MEDS: INSULN ASP PRT/INSULIN ASPART 100 UNIT/ML 10 ML VIAL SQ SCH ×2 (07:05→16:44)
--- NOTE | 2022-05-31 07:32 | P.PN ---
Subjective Progress Note Date: 05/31/22 PROGRESS NOTE The patient is a 77-year-old female with a known history of CAD, status post multivessel PCI who presented with non-STEMI. Underwent cardiac catheterization and was evaluated by the surgical team and was felt to have a high risk for surgical intervention. She was evaluated by Dr. Foley for PCI. She has done well since yesterday. She has no further chest discomfort and her breathing is stable. She denies any dizziness or palpitations. She continues to be in sinus mechanism with no evidence of malignant arrhythmia. May 31: The patient underwent stenting of her left circumflex and OM branch yesterday. She had episode of acute pulmonary edema yesterday at the end of the procedure, requiring IV Lasix drip, better this morning. She is feeling better with no chest discomfort, dizziness or palpitations. She is in sinus mechanism. Hemodynamically she is stable. There is no evidence of malignant arrhythmia. Her urine output has been good. She has no nausea or vomiting. Medications: aspirin once a day, Plavix 75 mg daily, insulin, Zestril 40 mg daily, metoprolol succinate 75 mg daily, Nitropaste, IV Lasix drip, IV nitroglycerin PHYSICAL EXAMINATION: Blood pressure 102/50 heart rate 67 LUNGS: Clear to auscultation HEART: Regular rate and rhythm, S1, S2. No S3. systolic ejection murmur ABDOMEN: Soft, nontender, no organomegaly EXTREMETIES: +1 edema, right radial pulse intact, ecchymosis noted LAB: Hemoglobin 12.8 IMPRESSION: 1. Status post non-STEMI with severe triple-vessel disease, high risk for surgical intervention, status post stenting of the left circumflex 2. Status post multivessel stenting was chronic total occlusion of the RCA 3. History of hypertension 4. Cardiomyopathy 5. Acute pulmonary edema post procedure most likely related to dye injection and baseline elevated LVEDP, improved PLAN: 1. Change to IV Lasix twice a day 2. Stop IV nitroglycerin and switched to Nitropaste 3. Stop Zestril and initiate Entresto from tomorrow 4. Follow renal function 5. Increase physical activity 6. Patient would require IFR of the LAD at a later time Objective - Vital Signs Vital signs: Vital Signs Temp 97.9 F 05/31/22 04:00 Pulse 67 05/31/22 06:00 Resp 17 05/31/22 06:00 BP 102/45 05/31/22 06:00 Pulse Ox 94 L 05/31/22 06:00 FiO2 100 05/30/22 13:35 Intake & Output 05/30/22 05/31/22 05/31/22 18:59 06:59 18:59 Intake Total 511.9 731.2 Output Total 2425 1660 Balance -1913.1 -928.8 Weight 128 kg Intake: IV 500 720 0.9 300 720 Intake, IV Titration 11.9 11.2 Amount Furosemide 100 mg In 11.2 Sodium Chloride 0.9% 90 ml @ 7 MG/HR 7 mls/hr IV .[id number] ROHIT Rx#: [id number] Nitroglycerin-D5w Pmx 50 11.9 mg In Dextrose/Water 1 250ml.bag @ 10 MCG/MIN 3 mls/hr IV .Q24H ROHIT Rx#: [id number] Output: Urine 2425 1660 Other: Voiding Method Indwelling Catheter Indwelling Catheter - Labs CBC & Chem 7: 05/31/22 06:12 05/30/22 18:00 Labs: Abnormal Lab Results - Last 24 Hours (Table) 05/30/22 05/30/22 05/30/22 Range/Units 07:42 07:42 08:44 WBC (3.8-10.6) k/uL Plt Count 146 L (150-450) k/uL Sodium (137-145) mmol/L BUN 20 H (7-17) mg/dL Creatinine 1.26 H (0.52-1.04) mg/dL Glucose 123 H (74-99) mg/dL POC Glucose (mg/dL) 131 H (70-110) mg/dL 05/30/22 05/30/22 05/30/22 Range/Units 13:22 16:24 18:00 WBC (3.8-10.6) k/uL Plt Count (150-450) k/uL Sodium 136 L (137-145) mmol/L BUN 21 H (7-17) mg/dL Creatinine 1.08 H (0.52-1.04) mg/dL Glucose 228 H (74-99) mg/dL POC Glucose (mg/dL) 233 H 227 H (70-110) mg/dL 05/30/22 05/31/2223 Range/Units 20:01 02:10 06:12 WBC 11.4 H (3.8-10.6) k/uL Plt Count 140 L (150-450) k/uL Sodium (137-145) mmol/L BUN (7-17) mg/dL Creatinine (0.52-1.04) mg/dL Glucose (74-99) mg/dL POC Glucose (mg/dL) 252 H 211 H (70-110) mg/dL 05/31/22 Range/Units 06:52 WBC (3.8-10.6) k/uL Plt Count (150-450) k/uL Sodium (137-145) mmol/L BUN (7-17) mg/dL Creatinine (0.52-1.04) mg/dL Glucose (74-99) mg/dL POC Glucose (mg/dL) 170 H (70-110) mg/dL
[2022-05-31 07:41] LABS: Calcium 8.8 mg/dL (8.4-10.2)
[2022-05-31 07:47] LABS: Magnesium 2.1 mg/dL (1.6-2.3); Potassium 4.9 mmol/L (3.5-5.1)
--- NOTE | 2022-05-31 08:52 | P.PN ---
Subjective Progress Note Date: 05/31/22 77-year-old female with history of multiple medical problems including coronary disease, previous myocardial infarction, multiple stent placements, hypertension, hyperlipidemia, diabetes, and chronic kidney disease. The patient has had 6 cardiac stents in the past. Minute to the hospital, with chest pain, on May 25, and was found to have a non-ST segment elevation myocardial infarction. She's currently being evaluated by cardiothoracic surgery for bypass grafting. She's currently in the ICU at room 256. The patient is on 2 L of oxygen. Receiving IV nitroglycerin at 10 mcg/m, and IV heparin via weightbase protocol. The patient's also receiving saline at KVO. The patient is scheduled to have a bedside spirometry. She has just been evaluated by cardiothoracic surgery. Current labs include a sodium 137, potassium 5.1, chlorides 106, CO2 21, BUN 27 creatinine 1.25. Thyroid function is normal. Chest x-ray is positive for cardiomegaly, and possible chronic interstitial lung disease. Progress note dated 05/27/2022. 77-year-old female seen yesterday in consultation. She seen again today in the intensive care unit, room 256. It was decided by surgery, the patient was not a good surgical candidate for bypass procedure. Hence, the patient will be treated medically. She's currently on 2 L of oxygen. She is receiving IV heparin. She is getting saline at 75 mL per hour. White count 10.1, hemoglobin 14.7, hematocrit 43.2, and platelet count was normal. PTT was 70.6. Sodium 139, potassium 4.5, chlorides 106, CO2 29, BUN 27, and creatinine 1.27. Progress note dated 05/28/2022. 77-year-old female seen today in the intensive care unit, room 256. The patient's on room air. She's getting saline at KVO. She remains on IV heparin. She received Lasix 40 mg IV push, from cardiology yesterday. Patient had an uneventful night. She is waiting for a bed out on the cardiac floor. CBC today is normal. PTT is 67. Sodium 136, potassium 4.6, chlorides 101, CO2 32, BUN 2 5, and creatinine 1.20. Progress note dated 05/29/2022. 77-year-old female seen again today in the intensive care unit, room 256. The patient's on room air. She's receiving saline at KVO. Clinically, she had an uneventful night and day. According to the nurse, she is doing well. She was waiting for a bed out on the cardiology floor. Her glucose was measured at 170. The patient denies any chest pain or chest discomfort, palpitations, shortness of breath, cough, wheezing, or phlegm production. On 05/30/2022, the patient is being seen in a follow-up. The patient is going to undergo a cardiac catheterization today. IV fluids are KVO. The patient on room air oxygen. No other significant events overnight. Blood work from today shows edematous count 8.3 hemoglobin 15.3 and a platelet count of 46. BUN is at 20 with a creatinine of 1.2 and a sodium level is at 139. Medication was noted. The patient remains on Lasix 40 mg by mouth daily. The patient is on IV heparin. Cardiology is on the case. Echocardiogram showed systolic heart failure with an ejection fraction of 35-40%. There is severely increased left ventricular mass. Increase in wall thickness. LV is quite dila bernadette and the patient has +2 mitral regurgitation. On today's evaluation of 05/31/2022, the patient is being seen in follow-up in the intensive care unit. As mentioned earlier, the patient is known to have CAD, previous LA, multiple coronary stents, hypertension hyperlipidemia and diabetes mellitus and chronic kidney disease. The patient also has underlying CHF with an ejection fraction of 35-40% and based on echocardiogram, there was increased thickness of LV wall and the LV was dilated with +2 mitral regurgitation. The patient underwent cardiac catheterization yesterday. This was done by cardiology and the patient was found to have significant lesion of the first obtuse marginal branch of the circumflex and main circumflex coronary artery. Intravascular ultrasound of the circumflex vessel and shockwave lithotripsy of the left circumflex artery was done. The patient had a total of 3 stents inserted. During the procedure, the patient became progressively more short of breath and she went into decompensate heart failure and pulmonary edema. She was briefly placed on a BiPAP and she'll get moved to the intensive care unit. She was also given Lasix and nitroglycerin drip. She was placed on a Lasix drip at 10 mg an hour and the net fluid balance has been more than 3 L she is she was started on a Lasix drip. This morning, the Lasix drip has been discontinued and the patient is currently on 40 mg IV Lasix every 8 hours. She is much more comfortable at this point in time. Breathing is stable. She remains on aspirin. She is on Plavix. She is also on Aldactone and Entresto to optimize her CHF. She remains on high-dose statins. She is on metoprolol XL 75 mg daily and she is also on heparin subcu for DVT prophylaxis. Denies having any chest pain. The chest x-ray from today shows cardiomegaly. Nevertheless, there is no active signs of pulmonary edema. Her volume status is improved. The patient is currently on 4 L of oxygen by nasal cannula with a pulse ox of 94%. Objective - Vital Signs Vital signs: Vital Signs Temp 97.9 F 05/31/22 04:00 Pulse 76 05/31/22 07:00 Resp 23 05/31/22 07:00 BP 106/56 05/31/22 07:00 Pulse Ox 94 L 05/31/22 07:00 FiO2 100 05/30/22 13:35 Intake & Output 05/30/22 05/31/22 05/31/22 18:59 06:59 18:59 Intake Total 511.9 731.2 60 Output Total 2425 1660 85 Balance -1913.1 -928.8 -25 Weight 128 kg Intake: IV 500 720 60 0.9 300 720 60 Intake, IV Titration 11.9 11.2 Amount Furosemide 100 mg In 11.2 Sodium Chloride 0.9% 90 ml @ 7 MG/HR 7 mls/hr IV .[id number] ROHIT Rx#: [id number] Nitroglycerin-D5w Pmx 50 11.9 mg In Dextrose/Water 1 250ml.bag @ 10 MCG/MIN 3 mls/hr IV .Q24H ROHIT Rx#: [id number] Output: Urine 2425 1660 85 Other: Voiding Method Indwelling Catheter Indwelling Catheter - Exam No acute distress, oriented 3. Obese white female. Currently on room air. Saturations are 96 %. The patient is currently on 4 L of oxygen by [facility] is grossly unremarkable. Neck supple. Full range of motion. No adenopathy thyromegaly or neck vein distention. Cardiovascular examination reveals regular rhythm rate. S1-S2 normal. No S3 or S4. No discernible murmur noted. Lungs reveal clear breath sounds. Breath sounds are equal bilaterally. No adventitious lung sounds including wheezes rhonchi or crackles. Abdomen soft bowel sounds are heard. No masses or tenderness. Extremities are intact. No cyanosis clubbing or edema. Skin is without rash or lesion. Neurologic examination is brief but nonfocal. - Labs CBC & Chem 7: 05/31/22 06:12 05/31/22 06:12 Labs: Abnormal Lab Results - Last 24 Hours (Table) 05/30/22 05/30/22 05/30/22 Range/Units 07:42 08:44 13:22 WBC (3.8-10.6) k/uL Plt Count (150-450) k/uL Sodium (137-145) mmol/L BUN 20 H (7-17) mg/dL Creatinine 1.26 H (0.52-1.04) mg/dL Glucose 123 H (74-99) mg/dL POC Glucose (mg/dL) 131 H 233 H (70-110) mg/dL 05/30/22 05/30/22 05/30/22 Range/Units 16:24 18:00 20:01 WBC (3.8-10.6) k/uL Plt Count (150-450) k/uL Sodium 136 L (137-145) mmol/L BUN 21 H (7-17) mg/dL Creatinine 1.08 H (0.52-1.04) mg/dL Glucose 228 H (74-99) mg/dL POC Glucose (mg/dL) 227 H 252 H (70-110) mg/dL 05/31/22 05/31/22 05/31/22 Range/Units 02:10 06:12 06:12 WBC 11.4 H (3.8-10.6) k/uL Plt Count 140 L (150-450) k/uL Sodium (137-145) mmol/L BUN 25 H (7-17) mg/dL Creatinine 1.36 H (0.52-1.04) mg/dL Glucose 178 H (74-99) mg/dL POC Glucose (mg/dL) 211 H (70-110) mg/dL 05/31/22 Range/Units 06:52 WBC (3.8-10.6) k/uL Plt Count (150-450) k/uL Sodium (137-145) mmol/L BUN (7-17) mg/dL Creatinine (0.52-1.04) mg/dL Glucose (74-99) mg/dL POC Glucose (mg/dL) 170 H (70-110) mg/dL Assessment and Plan Plan: Acute non-ST segment elevation myocardial infarction, with known history of CAD, and PCI with previous stents 6. The patient underwent a repeat cardiac catheterization yesterday. 3 additional stents were given and the circumflex and obtuse marginal branch of the circumflex. Acute pulmonary edema with secondary shortness of breath, improving Acute hypoxic respiratory failure currently on 4 L of oxygen by nasal cannula Systolic heart failure with an ejection fraction of 35-40% with +2 mitral regurgitation Cardiomyopathy with dilated LV and systolic heart failure with +2 mitral regurgitation and the patient is an ejection fraction of 35-40% History of previous myocardial infarction, 2. History of hypertension. Hyperlipidemia. Diabetes mellitus. Chronic kidney disease. Obesity. Lifelong nonsmoker. Plan Wean FiO2 as tolerated [facility] about 90% currently on 4 L Continue aspirin and Plavix Continue metoprolol XL 75 mg by mouth daily Continue Aldactone Continue Entresto Continue Lasix 40 mg IV every 8 hours Optimize CHF We'll follow, she may potentially transferred out of cardiology approval his been obtained.
[2022-05-31] MEDS ORDERED: FUROSEMIDE 10 MG/ML 4 ML VIAL IV SCH (09:00)
[2022-05-31] MEDS: NON FORMULARY DRUG (Acetylcysteine [Nac] 600 MG Tablet) PO SCH (09:39)
[2022-05-31] MEDS: FUROSEMIDE 10 MG/ML 4 ML VIAL IV SCH ×2 (09:49→16:44)
[2022-05-31] MEDS: ASCORBIC ACID 500 MG TAB PO SCH (09:50)
[2022-05-31] MEDS: ATORVASTATIN 80 MG TAB PO SCH (09:50)
[2022-05-31] MEDS: CLOPIDOGREL 75 MG TAB PO SCH (09:50)
[2022-05-31] MEDS: CYANOCOBALAMIN 500 MCG TAB PO SCH (09:50)
[2022-05-31] MEDS: SPIRONOLACTONE 25 MG TAB PO SCH (09:51)
[2022-05-31] MEDS: ASPIRIN 81 MG PO SCH (09:51)
[2022-05-31] MEDS: MAGNESIUM OXIDE 400 MG TAB PO SCH (09:51)
[2022-05-31] MEDS: HEPARIN SODIUM,PORCINE/PF 5,000 UNIT/0.5 ML SYRINGE SQ SCH ×2 (09:51→21:13)
[2022-05-31] MEDS: ZINC SULFATE 220 MG CAP PO SCH (09:51)
[2022-05-31 11:36] LABS: Glucose,Whole Blood 121 mg/dL (70-110)
--- NOTE | 2022-05-31 11:37 | XR ---
EXAMINATION TYPE: XR chest 1V portable DATE OF EXAM: 05/31/2022 COMPARISON: 05/25/2022, CT chest 03/21/2022 HISTORY: Dyspnea TECHNIQUE: Single frontal view of the chest is obtained. FINDINGS: There is mild cardiomegaly. The cardiomediastinal silhouette is within normal limits. Ther e is distention of the pulmonary vasculature. There are trace bilateral pleural effusions. There is n o consolidation or pneumothorax. There are increased interstitial opacities bilaterally. IMPRESSION: Findings suggestive of mild pulmonary edema which trace bilateral pleural effusions.
[2022-05-31 13:34] VITALS: BMI 51.6
--- NOTE | 2022-05-31 15:10 | P.PN ---
Progress Note - Text Progress Note Date: 05/31/22 Chief Complaint: Chest pain This is a pleasant 76-year-old patient who follows with Dr. Miller. [employer] Dr. Krause. Chronic stable medical conditions include diabetes, hypertension, hyperlipidemia, CAD with stent 5 in 2019. Patient was admitted here in March with CHF exacerbation. Patient states that she's had chest pain on and off for some time. Close to a year ago patient did have a stress test as well as negative. Patient was scheduled to have another stress test. Presented today with much increasing chest pain. The normal. Nitroglycerin has sometimes other times not. No shortness of breath no fever or chills no cough. Patient has chronic lower extremity edema. Patient is described pain as all over the chest. No dizziness no lightheadedness. No radiation. May 26: Underwent cardiac catheterization this morning by Dr. Salazar. Was found to have three-vessel CAD with chronically occluded RCA, with [id number] collaterals, patent stents and a possibly plaque rupture in the LAD and significant stenosis involving the ostial OM. And the diagonal branches. Dr. Hunt from cardiothoracic surgery evaluated the patient for three-vessel bypass. Patient was concerned about her findings. Had a lengthy discussion with the patient. And reassured about the findings in terms of treatment and outcomes. She feels better. On IV heparin. May 27: Up in a chair. Had a small episode of chest pain today. Remains on IV heparin. Per cardiothoracic team: Recommend angioplasty. If not then recommends JESUS to look anatomy will closely.. May 28: Up in a chair. Somewhat tearful about once going on. Reassured. IV heparin. Possible intervention tomorrow/Sunday by Dr. Foley. May 29: Up in a chair. Seen by cardiology earlier. Statin added. Amlodipine discontinued. Possible intervention in the next 24 hours May 18: ICU: Post procedure. Pertinent a nurse patient had 2 stents in the circumflex and 1 and OM today. Just falling that patient became very short of breath. Patient is put on IV nitro drip and IV Lasix drip. Diagnosed well. Then brought to the ICU. Patient put out about significant urine. Discussed patient. Reassured. Patient is currently on IV Lasix drip. No heparin drip. Currently on 9 L of oxygen May 31: ICU. Up in a chair. Breathing better. Down to 2 L of nasal cannula. Lisinopril is being changed to Entresto tomorrow. Patient not very keen on hospital food. Consult PTOT. Lasix drip changed over to IV Lasix 40 mg every 8. Check stat x-ray shows some mild venous prominence Active Medications Acetaminophen (Acetaminophen Tab 325 Mg Tab) 650 mg PO Q6HR PRN PRN Reason: Mild Pain or Fever > 100.5 Last Admin: 05/30/22 15:09 Dose: 650 mg Alprazolam (Alprazolam 0.25 Mg Tab) 0.25 mg PO Q6HR PRN PRN Reason: Mild Anxiety Alprazolam (Alprazolam 0.5 Mg Tab) 0.5 mg PO Q6HR PRN PRN Reason: Moderate Anxiety Ascorbic Acid (Ascorbic Acid 500 Mg Tab) 1,000 mg PO DAILY [facility] Last Admin: 05/31/22 09:50 Dose: 1,000 mg Aspirin (Aspirin 81 Mg) 81 mg PO DAILY [facility] Last Admin: 05/31/22 09:51 Dose: 81 mg Atorvastatin Calcium (Atorvastatin 80 Mg Tab) 80 mg PO DAILY [facility] Last Admin: 05/31/22 09:50 Dose: 80 mg Benzocaine/Menthol (Benzocaine/Menthol Lozeng 1 Each Lozenge) 1 each MUCOUS MEM Q4HR PRN PRN Reason: cough Calcium Carbonate/Glycine (Calcium Carbonate 500 Mg Chewable) 1,000 mg PO Q4HR PRN PRN Reason: Dyspepsia Clopidogrel Bisulfate (Clopidogrel 75 Mg Tab) 75 mg PO DAILY [facility] Last Admin: 05/31/22 09:50 Dose: 75 mg Cyanocobalamin (Cyanocobalamin 500 Mcg Tab) 500 mcg PO DAILY [facility] Last Admin: 05/31/22 09:50 Dose: 500 mcg Ergocalciferol (Ergocalciferol 1,250 Mcg (50,000 Iu) Capsule) 1,250 mcg PO SAMUELS [facility] Last Admin: 05/28/22 09:10 Dose: 1,250 mcg Furosemide (Furosemide 10 Mg/Ml 4 Ml Vial) 40 mg IV Q8HR [facility] Last Admin: 05/31/22 09:49 Dose: 40 mg Heparin Sodium (Porcine) (Heparin Sodium,Porcine/Pf 5,000 Unit/0.5 Ml Syringe) 5,000 unit SQ Q12HR [facility] Last Admin: 05/31/22 09:51 Dose: 5,000 unit Sodium Chloride (Saline 0.9%) 1,000 mls @ 60 mls/hr IV .[id number] [facility] Last Admin: 05/31/22 03:52 Dose: 60 mls/hr Insulin Aspart (Insuln Asp Prt/Insulin Aspart 100 Unit/Ml 10 Ml Vial) 35 unit SQ AC-BID [facility] Last Admin: 05/31/22 07:05 Dose: 35 unit Lactulose (Lactulose 20 Gm/30 Ml Cup) 20 gm PO DAILY PRN PRN Reason: Constipation Magnesium Oxide (Magnesium Oxide 400 Mg Tab) 400 mg PO DAILY [facility] Last Admin: 05/31/22 09:51 Dose: 400 mg Melatonin (Melatonin 3 Mg Tablet) 3 mg PO HS PRN PRN Reason: Insomnia Metoprolol Succinate (Metoprolol Succinate (Er) 25 Mg Tab.Er.24h) 75 mg PO HS [facility] Naloxone HCl (Naloxone 0.4 Mg/Ml 1 Ml Vial) 0.2 mg IV Q2M PRN PRN Reason: Opioid Reversal Nitroglycerin (Nitroglycerin Oint 1 Inch/Gm Packet) 0.5 inch TOPICAL Q6HR [facility] Last Admin: 05/31/22 12:24 Dose: Not Given Nitroglycerin (Nitroglycerin Sl Tabs 0.4 Mg Tab) 0.4 mg SUBLINGUAL Q5M PRN PRN Reason: Chest Pain Non-Formulary Medication (Acetylcysteine [Nac]) 600 mg PO DAILY [facility] Last Admin: 05/31/22 09:39 Dose: Not Given Ondansetron HCl (Ondansetron 4 Mg/2 Ml Vial) 4 mg IVP Q8HR PRN PRN Reason: Nausea And Vomiting Sacubitril/Valsartan (Sacubitril/Valsartan 24 Mg-26 Mg Tablet) 1 each PO BID [facility] Spironolactone (Spironolactone 25 Mg Tab) 12.5 mg PO DAILY [facility] Last Admin: 05/31/22 09:51 Dose: 12.5 mg Zinc Sulfate (Zinc Sulfate 220 Mg Cap) 220 mg PO DAILY [facility] Last Admin: 05/31/22 09:51 Dose: 220 mg Past medical history to include: Diabetes, hypertension, hyperlipidemia, NM in 2010, CAD with stent in 2019 Social history: . No smoking or alcohol Physical examination: VITAL SIGNS: 97.1, 63, 12, 111/59, 95% on 2 L GENERAL: BMI 51.2, up in a chair EYES: Pupils equal. Conjunctiva normal. HEENT: External appearance of nose and ears normal, oral cavity grossly normal. NECK: JVD not raised; masses not palpable. HEART: First and second heart sounds are normal; some edema. LUNGS: Respiratory rate normal; decreased breath sound. ABDOMEN: Soft, nontender, liver spleen not palpable, no masses palpable. PSYCH: Alert and oriented x3; mood and affect anxious MUSCULOSKELETAL:No Clubbing/cyanosis;muscles-grossly intact. OA INVESTIGATIONS, reviewed in the clinical context: May 31: White count 11.4 hemoglobin 12.8 platelets 140 sodium 137 potassium 4.9 creatinine 1.36 May 30: Sodium 136 potassium 4.9 BUN 21 and creatinine 1.08 May 29: WBC 7.7 hemoglobin 13 potassium 4.1 BUN 22 creatinine 1.15 May 28: White count and hemoglobin 13.5 platelets 159 potassium 4.6 BUN 25 creatinine 1.20 May 27: White count 10.1 hemoglobin 14.7 platelets. 9 potassium 4.5. 27 creatinine 1.27 2-D echocardiogram [May 26] EF 35-40%. Wall motion abnormality. May 26: White count 8.2 hemoglobin 14.1 platelets 143 potassium 5.1 BUN 27 creatinine 1.25 HbA1c 6.5 TSH 1.6 EKG tracing personally reviewed by me-sinus tachycardia. ST-T wave changes. Across. Chest x-ray film personally reviewed by me-cardiomegaly. Prominent pulmonary artery WBC 8.3 hemoglobin 14.5 platelets 172 sodium 137 potassium 4.9 BUN 23 creatinine 1.23, Troponin I 0.0118, 0.608 Assessment and plan: -Acute non-Q-wave NM. Known CAD. Aspirin, IV heparin, beta darian -3-vessel CAD with chronically occluded RCA, with [id number] collaterals, patent stents and a possibly plaque rupture in the LAD and significant stenosis involving the ostial OM. And the diagonal branches: Slow to respond Aspirin, Toprol-XL, Zestril being changed over to Entresto, Lipitor. May 30: 2 stents to the circumflex and was stents to OM1 by Dr. JUAN CARLOS Foley. Would require IFR of the LAD at a later time -Acute flash pulmonary edema following coronary intervention today [May 30]: Better patient is put on IV nitro drip followed by Nitropaste. IV Lasix 40 mg every 8 -IV heparin monitoring,-discontinued follow PTT -Acute on chronic congestive diastolic heart failure of systolic dysfunction, EF 35-40%, ischemic cardiomyopathy IV Lasix 40 mg every 8. Aldactone 12.5 mg resumed -Diabetes mellitus type 2, chronically on insulin Humalog mix 75/25 twice a day follow Accu-Cheks with sliding scale -Essential hypertension Toprol-XL, Entresto from tomorrow -Acute kidney injury, ATN likely cardiorenal Creatinine was 0.98 on 03/21/2022. . -Morbid obesity BMI 51.2 Weight loss measures. Follow with PCP. Breathing better. Being changed over to Lasix IV 40 mg every 8. Zestril to be changed to to Entresto from tomorrow. PTOT. Discussed with patient
[2022-05-31 20:54] LABS: Glucose,Whole Blood 133 mg/dL (70-110)
[2022-05-31] MEDS: METOPROLOL SUCCINATE (ER) 25 MG TAB.ER.24H PO SCH (21:13)
[2022-06-01] MEDS: FUROSEMIDE 10 MG/ML 4 ML VIAL IV SCH (00:50)
[2022-06-01] MEDS: NITROGLYCERIN OINT 1 INCH/GM PACKET TOPICAL SCH ×2 (00:50→06:13)
[2022-06-01 03:01] LABS: Glucose,Whole Blood 211 mg/dL (70-110)
[2022-06-01 06:27] LABS: Glucose,Whole Blood 163 mg/dL (70-110)
[2022-06-01 06:27] LABS: Calcium 8.6 mg/dL (8.4-10.2); Potassium 3.8 mmol/L (3.5-5.1)
--- NOTE | 2022-06-01 06:54 | P.PN ---
Subjective Progress Note Date: 06/01/22 77-year-old female with history of multiple medical problems including coronary disease, previous myocardial infarction, multiple stent placements, hypertension, hyperlipidemia, diabetes, and chronic kidney disease. The patient has had 6 cardiac stents in the past. Minute to the hospital, with chest pain, on May 25, and was found to have a non-ST segment elevation myocardial infarction. She's currently being evaluated by cardiothoracic surgery for bypass grafting. She's currently in the ICU at room 256. The patient is on 2 L of oxygen. Receiving IV nitroglycerin at 10 mcg/m, and IV heparin via weightbase protocol. The patient's also receiving saline at KVO. The patient is scheduled to have a bedside spirometry. She has just been evaluated by cardiothoracic surgery. Current labs include a sodium 137, potassium 5.1, chlorides 106, CO2 21, BUN 27 creatinine 1.25. Thyroid function is normal. Chest x-ray is positive for cardiomegaly, and possible chronic interstitial lung disease. Progress note dated 05/27/2022. 77-year-old female seen yesterday in consultation. She seen again today in the intensive care unit, room 256. It was decided by surgery, the patient was not a good surgical candidate for bypass procedure. Hence, the patient will be treated medically. She's currently on 2 L of oxygen. She is receiving IV heparin. She is getting saline at 75 mL per hour. White count 10.1, hemoglobin 14.7, hematocrit 43.2, and platelet count was normal. PTT was 70.6. Sodium 139, potassium 4.5, chlorides 106, CO2 29, BUN 27, and creatinine 1.27. Progress note dated 05/28/2022. 77-year-old female seen today in the intensive care unit, room 256. The patient's on room air. She's getting saline at KVO. She remains on IV heparin. She received Lasix 40 mg IV push, from cardiology yesterday. Patient had an uneventful night. She is waiting for a bed out on the cardiac floor. CBC today is normal. PTT is 67. Sodium 136, potassium 4.6, chlorides 101, CO2 32, BUN 2 5, and creatinine 1.20. Progress note dated 05/29/2022. 77-year-old female seen again today in the intensive care unit, room 256. The patient's on room air. She's receiving saline at KVO. Clinically, she had an uneventful night and day. According to the nurse, she is doing well. She was waiting for a bed out on the cardiology floor. Her glucose was measured at 170. The patient denies any chest pain or chest discomfort, palpitations, shortness of breath, cough, wheezing, or phlegm production. On 05/30/2022, the patient is being seen in a follow-up. The patient is going to undergo a cardiac catheterization today. IV fluids are KVO. The patient on room air oxygen. No other significant events overnight. Blood work from today shows edematous count 8.3 hemoglobin 15.3 and a platelet count of 46. BUN is at 20 with a creatinine of 1.2 and a sodium level is at 139. Medication was noted. The patient remains on Lasix 40 mg by mouth daily. The patient is on IV heparin. Cardiology is on the case. Echocardiogram showed systolic heart failure with an ejection fraction of 35-40%. There is severely increased left ventricular mass. Increase in wall thickness. LV is quite dila bernadette and the patient has +2 mitral regurgitation. On today's evaluation of 05/31/2022, the patient is being seen in follow-up in the intensive care unit. As mentioned earlier, the patient is known to have CAD, previous LA, multiple coronary stents, hypertension hyperlipidemia and diabetes mellitus and chronic kidney disease. The patient also has underlying CHF with an ejection fraction of 35-40% and based on echocardiogram, there was increased thickness of LV wall and the LV was dilated with +2 mitral regurgitation. The patient underwent cardiac catheterization yesterday. This was done by cardiology and the patient was found to have significant lesion of the first obtuse marginal branch of the circumflex and main circumflex coronary artery. Intravascular ultrasound of the circumflex vessel and shockwave lithotripsy of the left circumflex artery was done. The patient had a total of 3 stents inserted. During the procedure, the patient became progressively more short of breath and she went into decompensate heart failure and pulmonary edema. She was briefly placed on a BiPAP and she'll get moved to the intensive care unit. She was also given Lasix and nitroglycerin drip. She was placed on a Lasix drip at 10 mg an hour and the net fluid balance has been more than 3 L she is she was started on a Lasix drip. This morning, the Lasix drip has been discontinued and the patient is currently on 40 mg IV Lasix every 8 hours. She is much more comfortable at this point in time. Breathing is stable. She remains on aspirin. She is on Plavix. She is also on Aldactone and Entresto to optimize her CHF. She remains on high-dose statins. She is on metoprolol XL 75 mg daily and she is also on heparin subcu for DVT prophylaxis. Denies having any chest pain. The chest x-ray from today shows cardiomegaly. Nevertheless, there is no active signs of pulmonary edema. Her volume status is improved. The patient is currently on 4 L of oxygen by nasal cannula with a pulse ox of 94%. On 06/01/2022, the patient is being seen for a follow-up., Comfortable on 2 L of oxygen by nasal cannula. No new complaints. Her night was uneventful. Cardiac rhythm is sinus and the rate is controlled for now. She remains on IV Lasix 40 mg every 8 hours. Overall fluid balance over the past 24 hours has been in the order of -2.8 L and the patient has been diuresing adequately. Blo od work and electrolytes from today shows a BUN of 27 and a creatinine of 1.4 and a sodium level is at 135. Creatinine has remained essentially stable compared to yesterday. CBC still pending for now. No chest x-ray for today. She is off the nitroglycerin drip. Her blood pressures under adequate control. She remains on aspirin and Plavix. Her CHF is being further optimized. She has an incentive spirometer and she has not used the BiPAP over the past 24 hours. Objective - Vital Signs Vital signs: Vital Signs Temp 97.9 F 06/01/22 00:00 Pulse 68 06/01/22 06:00 Resp 24 06/01/22 06:00 BP 111/46 06/01/22 06:00 Pulse Ox 93 L 06/01/22 06:00 FiO2 100 05/30/22 13:35 Intake & Output 05/31/22 05/31/22 06/01/22 06:59 18:59 06:59 Intake Total 731.2 280 440 Output Total 1319 356 1412 Balance -928.8 -545 -1100 Weight 128 kg 128 kg 128.1 kg Intake: IV 720 280 240 0.9 720 280 240 Intake, IV Titration 11.2 Amount Furosemide 100 mg In 11.2 Sodium Chloride 0.9% 90 ml @ 7 MG/HR 7 mls/hr IV .[id number] [facility] Rx#: [id number] Oral 200 Output: Urine [id number] [id number] Other: Voiding Method Indwelling Catheter Indwelling Catheter Indwelling Catheter - Exam No acute distress, oriented 3. Obese white female. Currently on room air. Saturations are 96 %. The patient is currently on 2 L of oxygen by nasal cannula HEENT examination is grossly unremarkable. Neck supple. Full range of motion. No adenopathy thyromegaly or neck vein distention. Cardiovascular examination reveals regular rhythm rate. S1-S2 normal. No S3 or S4. No discernible murmur noted. Lungs reveal clear breath sounds. Breath sounds are equal bilaterally. No adventitious lung sounds including wheezes rhonchi or crackles. Abdomen soft bowel sounds are heard. No masses or tenderness. Extremities are intact. No cyanosis clubbing or edema. Skin is without rash or lesion. Neurologic examination is brief but nonfocal. - Labs CBC & Chem 7: 05/31/22 06:12 06/01/22 05:33 Labs: Abnormal Lab Results - Last 24 Hours (Table) 05/31/22 05/31/22 05/31/22 Range/Units 06:12 06:52 11:34 Sodium (137-145) mmol/L Chloride (98-107) mmol/L Carbon Dioxide (22-30) mmol/L BUN 25 H (7-17) mg/dL Creatinine 1.36 H (0.52-1.04) mg/dL Glucose 178 H (74-99) mg/dL POC Glucose (mg/dL) 170 H 121 H (70-110) mg/dL 05/31/22 06/01/22 06/01/22 Range/Units 20:53 02:59 05:33 Sodium 135 L (137-145) mmol/L Chloride 97 L (98-107) mmol/L Carbon Dioxide 34 H (22-30) mmol/L BUN 27 H (7-17) mg/dL Creatinine 1.41 H (0.52-1.04) mg/dL Glucose 165 H (74-99) mg/dL POC Glucose (mg/dL) 133 H 211 H (70-110) mg/dL 06/01/22 Range/Units 06:26 Sodium (137-145) mmol/L Chloride (98-107) mmol/L Carbon Dioxide (22-30) mmol/L BUN (7-17) mg/dL Creatinine (0.52-1.04) mg/dL Glucose (74-99) mg/dL POC Glucose (mg/dL) 163 H (70-110) mg/dL Assessment and Plan Plan: Acute non-ST segment elevation myocardial infarction, with known history of CAD, and PCI with previous stents 6. The patient underwent a repeat cardiac catheterization yesterday. 3 additional stents were given and the circumflex and obtuse marginal branch of the circumflex. Acute pulmonary edema with secondary shortness of breath, improving, the patient is currently on 2 L of oxygen by nasal cannula and a pulmonary edema is improvi ng Acute hypoxic respiratory failure currently on 2 L of oxygen by nasal cannula Systolic heart failure with an ejection fraction of 35-40% with +2 mitral regurgitation Cardiomyopathy with dilated LV and systolic heart failure with +2 mitral regurgitation and the patient is an ejection fraction of 35-40% History of previous myocardial infarction, 2. History of hypertension. Hyperlipidemia. Diabetes mellitus. Chronic kidney disease. Obesity. Lifelong nonsmoker. Plan IV fluids to KVO Wean FiO2 as tolerated I chest saturations of above 90% currently on 2 L Continue aspirin and Plavix Continue metoprolol XL 75 mg by mouth daily Continue Aldactone Continue Entresto Continue Lasix and change Lasix to 40 mg by mouth twice a day Monitor renal function Optimize CHF transfer this patient also the intensive care unit cardiac floor. Increase mobility Incentive spirometer Hemodynamically stable
--- NOTE | 2022-06-01 07:19 | P.PN ---
Subjective Progress Note Date: 06/01/22 PROGRESS NOTE The patient is a 77-year-old female with a known history of CAD, status post multivessel PCI who presented with non-STEMI. Underwent cardiac catheterization and was evaluated by the surgical team and was felt to have a high risk for surgical intervention. She was evaluated by Dr. Foley for PCI. She has done well since yesterday. She has no further chest discomfort and her breathing is stable. She denies any dizziness or palpitations. She continues to be in sinus mechanism with no evidence of malignant arrhythmia. May 31: The patient underwent stenting of her left circumflex and OM branch yesterday. She had episode of acute pulmonary edema yesterday at the end of the procedure, requiring IV Lasix drip, better this morning. She is feeling better with no chest discomfort, dizziness or palpitations. She is in sinus mechanism. Hemodynamically she is stable. There is no evidence of malignant arrhythmia. Her urine output has been good. She has no nausea or vomiting. June 01: The patient is feeling well this morning, denies any chest discomfort, dizziness or palpitations. She continues to be in sinus mechanism and hemodynamically stable. Her urinary output is stable. She denies any nausea or vomiting. She was up to the chair. She has no evidence of malignant arrhythmia. Medications: aspirin once a day, Plavix 75 mg daily, insulin, she is starting Entresto 2426 milligrams twice a day today, metoprolol succinate 75 mg daily, Nitropaste, Lasix 40 mg IV twice a day, IV nitroglycerin, Lipitor 80 mg daily, Aldactone 12.5 mg daily, PHYSICAL EXAMINATION: Blood pressure 111/60 heart rate 67 LUNGS: Clear to auscultation HEART: Regular rate and rhythm, S1, S2. No S3. systolic ejection murmur ABDOMEN: Soft, nontender, no organomegaly EXTREMETIES: Trace edema, right radial pulse intact, ecchymosis noted LAB: BUN 27, creatinine 1.4 IMPRESSION: 1. Status post non-STEMI with severe triple-vessel disease, high risk for surgical intervention, status post stenting of the left circumflex 2. Status post multivessel stenting was chronic total occlusion of the RCA 3. History of hypertension 4. Cardiomyopathy 5. Acute pulmonary edema post procedure most likely related to dye injection and baseline elevated LVEDP, improved PLAN: 1. Change to oral diuretics 2. Stop nitrate 3. Increase physical activity 4. Transfer to telemetry 5. Follow renal functions 6. If stable probable discharge in the next 24-48 hours. Objective - Vital Signs Vital signs: Vital Signs Temp 97.9 F 06/01/22 00:00 Pulse 68 06/01/22 06:00 Resp 24 06/01/22 06:00 BP 111/46 06/01/22 06:00 Pulse Ox 93 L 06/01/22 06:00 FiO2 100 05/30/22 13:35 Intake & Output 05/31/22 06/01/22 06/01/22 18:59 06:59 18:59 Intake Total 280 440 Output Total 825 1540 Balance -545 -1100 Weight 128 kg 128.1 kg Intake: IV 280 240 0.9 280 240 Oral 200 Output: Urine 825 1540 Other: Voiding Method Indwelling Catheter Indwelling Catheter - Labs CBC & Chem 7: 05/31/22 06:12 06/01/22 05:33 Labs: Abnormal Lab Results - Last 24 Hours (Table) 05/31/22 05/31/22 05/31/22 Range/Units 06:12 11:34 20:53 Sodium (137-145) mmol/L Chloride (98-107) mmol/L Carbon Dioxide (22-30) mmol/L BUN 25 H (7-17) mg/dL Creatinine 1.36 H (0.52-1.04) mg/dL Glucose 178 H (74-99) mg/dL POC Glucose (mg/dL) 121 H 133 H (70-110) mg/dL 06/01/22 06/01/22 06/01/22 Range/Units 02:59 05:33 06:26 Sodium 135 L (137-145) mmol/L Chloride 97 L (98-107) mmol/L Carbon Dioxide 34 H (22-30) mmol/L BUN 27 H (7-17) mg/dL Creatinine 1.41 H (0.52-1.04) mg/dL Glucose 165 H (74-99) mg/dL POC Glucose (mg/dL) 211 H 163 H (70-110) mg/dL
[2022-06-01] MEDS: INSULN ASP PRT/INSULIN ASPART 100 UNIT/ML 10 ML VIAL SQ SCH ×2 (07:44→17:50)
[2022-06-01] MEDS ORDERED: POTASSIUM CHLORIDE ER 20 MEQ TAB.ER PO STA (07:47)
[2022-06-01] MEDS: HEPARIN SODIUM,PORCINE/PF 5,000 UNIT/0.5 ML SYRINGE SQ SCH ×2 (08:13→20:56)
[2022-06-01] MEDS: SPIRONOLACTONE 25 MG TAB PO SCH (08:13)
[2022-06-01] MEDS: MAGNESIUM OXIDE 400 MG TAB PO SCH (08:13)
[2022-06-01] MEDS: ATORVASTATIN 80 MG TAB PO SCH (08:13)
[2022-06-01] MEDS: ASCORBIC ACID 500 MG TAB PO SCH (08:13)
[2022-06-01] MEDS: ASPIRIN 81 MG PO SCH (08:14)
[2022-06-01] MEDS: CLOPIDOGREL 75 MG TAB PO SCH (08:14)
[2022-06-01] MEDS: FUROSEMIDE 40 MG TAB PO SCH ×2 (08:14→17:51)
[2022-06-01] MEDS: ZINC SULFATE 220 MG CAP PO SCH (08:14)
[2022-06-01] MEDS: CYANOCOBALAMIN 500 MCG TAB PO SCH (08:14)
[2022-06-01] MEDS: SACUBITRIL/VALSARTAN 24 MG-26 MG TABLET PO SCH ×2 (08:14→20:56)
[2022-06-01] MEDS: NON FORMULARY DRUG (Acetylcysteine [Nac] 600 MG Tablet) PO SCH (08:15)
[2022-06-01 11:22] LABS: Glucose,Whole Blood 162 mg/dL (70-110)
--- NOTE | 2022-06-01 14:33 | P.PN ---
Progress Note - Text Progress Note Date: 06/01/22 Chief Complaint: Chest pain This is a pleasant 76-year-old patient who follows with Dr. Miller. Unit Control Clerk Dr. Krause. Chronic stable medical conditions include diabetes, hypertension, hyperlipidemia, CAD with stent 5 in 2019. Patient was admitted here in March with CHF exacerbation. Patient states that she's had chest pain on and off for some time. Close to a year ago patient did have a stress test as well as negative. Patient was scheduled to have another stress test. Presented today with much increasing chest pain. The normal. Nitroglycerin has sometimes other times not. No shortness of breath no fever or chills no cough. Patient has chronic lower extremity edema. Patient is described pain as all over the chest. No dizziness no lightheadedness. No radiation. May 26: Underwent cardiac catheterization this morning by Dr. Salazar. Was found to have three-vessel CAD with chronically occluded RCA, with [id number] collaterals, patent stents and a possibly plaque rupture in the LAD and significant stenosis involving the ostial OM. And the diagonal branches. Dr. Hunt from cardiothoracic surgery evaluated the patient for three-vessel bypass. Patient was concerned about her findings. Had a lengthy discussion with the patient. And reassured about the findings in terms of treatment and outcomes. She feels better. On IV heparin. May 27: Up in a chair. Had a small episode of chest pain today. Remains on IV heparin. Per cardiothoracic team: Recommend angioplasty. If not then recommends JESUS to look anatomy will closely.. May 28: Up in a chair. Somewhat tearful about once going on. Reassured. IV heparin. Possible intervention tomorrow/Sunday by Dr. Foley. May 29: Up in a chair. Seen by cardiology earlier. Statin added. Amlodipine discontinued. Possible intervention in the next 24 hours May 18: ICU: Post procedure. Pertinent a nurse patient had 2 stents in the circumflex and 1 and OM today. Just falling that patient became very short of breath. Patient is put on IV nitro drip and IV Lasix drip. Diagnosed well. Then brought to the ICU. Patient put out about significant urine. Discussed patient. Reassured. Patient is currently on IV Lasix drip. No heparin drip. Currently on 9 L of oxygen May 31: ICU. Up in a chair. Breathing better. Down to 2 L of nasal cannula. Lisinopril is being changed to Entresto tomorrow. Patient not very keen on hospital food. Consult PTOT. Lasix drip changed over to IV Lasix 40 mg every 8. Check stat x-ray shows some mild venous prominence June 01: ICU. Up in a chair. Did walk a bit. Breathing stable. On room air. Does not like hospital food. Per cardiology hopefully discharge tomorrow. Changed to oral Lasix Active Medications Acetaminophen (Acetaminophen Tab 325 Mg Tab) 650 mg PO Q6HR PRN PRN Reason: Mild Pain or Fever > 100.5 Last Admin: 05/30/22 15:09 Dose: 650 mg Alprazolam (Alprazolam 0.25 Mg Tab) 0.25 mg PO Q6HR PRN PRN Reason: Mild Anxiety Alprazolam (Alprazolam 0.5 Mg Tab) 0.5 mg PO Q6HR PRN PRN Reason: Moderate Anxiety Ascorbic Acid (Ascorbic Acid 500 Mg Tab) 1,000 mg PO DAILY [facility] Last Admin: 06/01/22 08:13 Dose: 1,000 mg Aspirin (Aspirin 81 Mg) 81 mg PO DAILY [facility] Last Admin: 06/01/22 08:14 Dose: 81 mg Atorvastatin Calcium (Atorvastatin 80 Mg Tab) 80 mg PO DAILY [facility] Last Admin: 06/01/22 08:13 Dose: 80 mg Benzocaine/Menthol (Benzocaine/Menthol Lozeng 1 Each Lozenge) 1 each MUCOUS MEM Q4HR PRN PRN Reason: cough Calcium Carbonate/Glycine (Calcium Carbonate 500 Mg Chewable) 1,000 mg PO Q4HR PRN PRN Reason: Dyspepsia Clopidogrel Bisulfate (Clopidogrel 75 Mg Tab) 75 mg PO DAILY [facility] Last Admin: 06/01/22 08:14 Dose: 75 mg Cyanocobalamin (Cyanocobalamin 500 Mcg Tab) 500 mcg PO DAILY [facility] Last Admin: 06/01/22 08:14 Dose: 500 mcg Ergocalciferol (Ergocalciferol 1,250 Mcg (50,000 Iu) Capsule) 1,250 mcg PO [facility] Last Admin: 05/28/22 09:10 Dose: 1,250 mcg Furosemide (Furosemide 40 Mg Tab) 40 mg PO BID@0900,1600 [facility] Last Admin: 04/20/23 08:14 Dose: 40 mg Heparin Sodium (Porcine) (Heparin Sodium,Porcine/Pf 5,000 Unit/0.5 Ml Syringe) 5,000 unit SQ Q12HR [facility] Last Admin: 06/01/22 08:13 Dose: 5,000 unit Insulin Aspart (Insuln Asp Prt/Insulin Aspart 100 Unit/Ml 10 Ml Vial) 35 unit SQ AC-BID [facility] Last Admin: 06/01/22 07:44 Dose: 35 unit Lactulose (Lactulose 20 Gm/30 Ml Cup) 20 gm PO DAILY PRN PRN Reason: Constipation Magnesium Oxide (Magnesium Oxide 400 Mg Tab) 400 mg PO DAILY [facility] Last Admin: 06/01/22 08:13 Dose: 400 mg Melatonin (Melatonin 3 Mg Tablet) 3 mg PO HS PRN PRN Reason: Insomnia Metoprolol Succinate (Metoprolol Succinate (Er) 25 Mg Tab.Er.24h) 75 mg PO HS [facility] Last Admin: 05/31/22 21:13 Dose: 75 mg Naloxone HCl (Naloxone 0.4 Mg/Ml 1 Ml Vial) 0.2 mg IV Q2M PRN PRN Reason: Opioid Reversal Nitroglycerin (Nitroglycerin Sl Tabs 0.4 Mg Tab) 0.4 mg SUBLINGUAL Q5M PRN PRN Reason: Chest Pain Non-Formulary Medication (Acetylcysteine [Nac]) 600 mg PO DAILY [facility] Last Admin: 06/01/22 08:15 Dose: Not Given Ondansetron HCl (Ondansetron 4 Mg/2 Ml Vial) 4 mg IVP Q8HR PRN PRN Reason: Nausea And Vomiting Sacubitril/Valsartan (Sacubitril/Valsartan 24 Mg-26 Mg Tablet) 1 each PO BID [facility] Last Admin: 06/01/22 08:14 Dose: 1 each Spironolactone (Spironolactone 25 Mg Tab) 12.5 mg PO DAILY [facility] Last Admin: 06/01/22 08:13 Dose: 12.5 mg Zinc Sulfate (Zinc Sulfate 220 Mg Cap) 220 mg PO DAILY [facility] Last Admin: 06/01/22 08:14 Dose: 220 mg Past medical history to include: Diabetes, hypertension, hyperlipidemia, SC in 2010, CAD with stent in 2019 Social history: . No smoking or alcohol Physical examination: VITAL SIGNS: 98, 72, 20, 116/56, 97% room air GENERAL: BMI 51.2, up in a chair EYES: Pupils equal. Conjunctiva normal. HEENT: External appearance of nose and ears normal, oral cavity grossly normal. NECK: JVD not raised; masses not palpable. HEART: First and second heart sounds are normal; some edema. LUNGS: Respiratory rate normal; decreased breath sound. ABDOMEN: Soft, nontender, liver spleen not palpable, no masses palpable. PSYCH: Alert and oriented x3; mood and affect anxious MUSCULOSKELETAL:No Clubbing/cyanosis;muscles-grossly intact. OA INVESTIGATIONS, reviewed in the clinical context: June 01: Potassium 3.8 BUN 27 creatinine 1.41 May 31: White count 11.4 hemoglobin 12.8 platelets 140 sodium 137 potassium 4.9 creatinine 1.36 May 30: Sodium 136 potassium 4.9 BUN 21 and creatinine 1.08 May 29: WBC 7.7 hemoglobin 13 potassium 4.1 BUN 22 creatinine 1.15 May 28: White count and hemoglobin 13.5 platelets 159 potassium 4.6 BUN 25 creatinine 1.20 May 27: White count 10.1 hemoglobin 14.7 platelets. 9 potassium 4.5. 27 creatinine 1.27 2-D echocardiogram [May 26] EF 35-40%. Wall motion abnormality. May 26: White count 8.2 hemoglobin 14.1 platelets 143 potassium 5.1 BUN 27 creatinine 1.25 HbA1c 6.5 TSH 1.6 EKG tracing personally reviewed by me-sinus tachycardia. ST-T wave changes. Across. Chest x-ray film personally reviewed by me-cardiomegaly. Prominent pulmonary artery WBC 8.3 hemoglobin 14.5 platelets 172 sodium 137 potassium 4.9 BUN 23 creatinine 1.23, Troponin I 0.0118, 0.608 Assessment and plan: -Acute non-Q-wave SC. Known CAD. Aspirin, IV heparin, beta darian -3-vessel CAD with chronically occluded RCA, with [id number] collaterals, patent stents and a possibly plaque rupture in the LAD and significant stenosis involving the ostial OM. And the diagonal branches: Slow to respond Aspirin, Toprol-XL, Zestril being changed over to Entresto, Lipitor. May 30: 2 stents to the circumflex and was stents to OM1 by Dr. JUAN CARLOS Foley. Would require IFR of the LAD at a later time -Acute flash pulmonary edema following coronary intervention today [May 30]: Better patient is put on IV nitro drip followed by Nitropaste. By mouth Lasix -Acute on chronic congestive diastolic heart failure of systolic dysfunction, EF 35-40%, ischemic cardiomyopathy: Better Lasix 40 mg twice a day. Aldactone 12.5 mg resumed -Diabetes mellitus type 2, chronically on insulin Humalog mix 75/25 twice a day follow Accu-Cheks with sliding scale -Essential hypertension Toprol-XL, Entresto from tomorrow -Acute kidney injury, ATN likely cardiorenal Creatinine was 0.98 on 03/21/2022. . -Morbid obesity BMI 51.2 Weight loss measures. Follow with PCP. Discussed. Better. Hopefully home tomorrow.
[2022-06-01 20:06] LABS: Glucose,Whole Blood 322 mg/dL (70-110)
[2022-06-01] MEDS ORDERED: DEXTROSE 50% SYRINGE 50 ML IVP PRN ×2 (20:23)
[2022-06-01] MEDS: METOPROLOL SUCCINATE (ER) 25 MG TAB.ER.24H PO SCH (20:56)
[2022-06-01] MEDS: INSULIN ASPART (NovoLOG) 100 UNIT/ML VIAL SQ SCH (20:56)
[2022-06-02 00:29] LABS: Glucose,Whole Blood 58 mg/dL (70-110)
[2022-06-02 00:48] LABS: Glucose,Whole Blood 101 mg/dL (70-110)
[2022-06-02 02:05] LABS: Glucose,Whole Blood 123 mg/dL (70-110)
[2022-06-02 06:08] LABS: Glucose,Whole Blood 114 mg/dL (70-110)
[2022-06-02] MEDS: INSULIN ASPART (NovoLOG) 100 UNIT/ML VIAL SQ SCH ×2 (06:14→12:07)
[2022-06-02] MEDS: INSULN ASP PRT/INSULIN ASPART 100 UNIT/ML 10 ML VIAL SQ SCH (06:23)
[2022-06-02] MEDS: NON FORMULARY DRUG (Acetylcysteine [Nac] 600 MG Tablet) PO SCH (07:53)
[2022-06-02] MEDS: CLOPIDOGREL 75 MG TAB PO SCH (08:08)
[2022-06-02] MEDS: HEPARIN SODIUM,PORCINE/PF 5,000 UNIT/0.5 ML SYRINGE SQ SCH (08:08)
[2022-06-02] MEDS: FUROSEMIDE 40 MG TAB PO SCH (08:08)
[2022-06-02] MEDS: ASPIRIN 81 MG PO SCH (08:08)
[2022-06-02] MEDS: ZINC SULFATE 220 MG CAP PO SCH (08:08)
[2022-06-02] MEDS: SPIRONOLACTONE 25 MG TAB PO SCH (08:09)
[2022-06-02] MEDS: SACUBITRIL/VALSARTAN 24 MG-26 MG TABLET PO SCH (08:09)
[2022-06-02] MEDS: CYANOCOBALAMIN 500 MCG TAB PO SCH (08:10)
[2022-06-02] MEDS: ATORVASTATIN 80 MG TAB PO SCH (08:10)
[2022-06-02] MEDS: ASCORBIC ACID 500 MG TAB PO SCH (08:10)
--- NOTE | 2022-06-02 09:11 | P.PN ---
Subjective Progress Note Date: 06/02/22 PROGRESS NOTE The patient is a 77-year-old female with a known history of CAD, status post multivessel PCI who presented with non-STEMI. Underwent cardiac catheterization and was evaluated by the surgical team and was felt to have a high risk for surgical intervention. She was evaluated by Dr. Foley for PCI. She has done well since yesterday. She has no further chest discomfort and her breathing is stable. She denies any dizziness or palpitations. She continues to be in sinus mechanism with no evidence of malignant arrhythmia. May 31: The patient underwent stenting of her left circumflex and OM branch yesterday. She had episode of acute pulmonary edema yesterday at the end of the procedure, requiring IV Lasix drip, better this morning. She is feeling better with no chest discomfort, dizziness or palpitations. She is in sinus mechanism. Hemodynamically she is stable. There is no evidence of malignant arrhythmia. Her urine output has been good. She has no nausea or vomiting. June 01: The patient is feeling well this morning, denies any chest discomfort, dizziness or palpitations. She continues to be in sinus mechanism and hemodynamically stable. Her urinary output is stable. She denies any nausea or vomiting. She was up to the chair. She has no evidence of malignant arrhythmia. June 02: The patient is feeling well this morning and only complaining of constipation. Her breathing is better. Her edema is improving. She denies any dizziness or palpitations. She continues to be in sinus mechanism. No nausea or vomiting. Hemodynamically she is stable. Medications: aspirin once a day, Plavix 75 mg daily, insulin, Entresto 2426 milligrams twice a day today, metoprolol succinate 75 mg daily, Lasix 40 mg by mouth twice a day, Lipitor 80 mg daily, Aldactone 12.5 mg daily, PHYSICAL EXAMINATION: Blood pressure 119/60 heart rate 80, obese LUNGS: Clear to auscultation HEART: Regular rate and rhythm, S1, S2. No S3. systolic ejection murmur ABDOMEN: Soft, nontender, no organomegaly EXTREMETIES: Trace edema, LAB: Pending IMPRESSION: 1. Status post non-STEMI with severe triple-vessel disease, high risk for surgical intervention, status post stenting of the left circumflex 2. Status post multivessel stenting was chronic total occlusion of the RCA 3. History of hypertension 4. Cardiomyopathy 5. Acute pulmonary edema post procedure most likely related to dye injection and baseline elevated LVEDP, resolved PLAN: 1. Continue present therapy 2. Treatment of constipation per primary care 3. Probable discharge home today and follow-up as an outpatient. Objective - Vital Signs Vital signs: Vital Signs Temp 97.7 F 06/02/22 08:02 Pulse 80 06/02/22 08:02 Resp 19 06/02/22 08:02 BP 119/69 06/02/22 08:02 Pulse Ox 93 L 06/02/22 08:33 FiO2 100 05/30/22 13:35 Intake & Output 06/01/22 06/02/22 06/02/22 18:59 06:59 18:59 Intake Total 260 180 Output Total 575 Balance -315 180 Weight 125.8 kg Intake: IV 20 0.9 20 Oral 240 180 Output: Urine 575 Other: Voiding Method Bedside Commode Toilet Toilet # Voids 1 - Labs CBC & Chem 7: 05/31/22 06:12 06/01/22 05:33 Labs: Abnormal Lab Results - Last 24 Hours (Table) 06/01/22 06/01/22 06/02/22 Range/Units 11:21 20:04 00:28 POC Glucose (mg/dL) 162 H 322 H 58 L (70-110) mg/dL 06/02/22 06/02/22 Range/Units 02:02 06:06 POC Glucose (mg/dL) 123 H 114 H (70-110) mg/dL
[2022-06-02 09:47] LABS: Calcium 9.4 mg/dL (8.4-10.2); Potassium 3.9 mmol/L (3.5-5.1)
[2022-06-02] MEDS ORDERED: bisacodyL 10 MG SUPP RECTAL STA (10:16)
[2022-06-02 11:43] LABS: Glucose,Whole Blood 157 mg/dL (70-110)
[2022-06-02 12:12] VITALS: BP 105/60; PULSE 85; RESP 20; TEMP 97.5
--- NOTE | 2022-06-02 13:16 | P.PN ---
Subjective Progress Note Date: 06/02/22 77-year-old female with history of multiple medical problems including coronary disease, previous myocardial infarction, multiple stent placements, hypertension, hyperlipidemia, diabetes, and chronic kidney disease. The patient has had 6 cardiac stents in the past. Minute to the hospital, with chest pain, on May 25, and was found to have a non-ST segment elevation myocardial infarction. She's currently being evaluated by cardiothoracic surgery for bypass grafting. She's currently in the ICU at room 256. The patient is on 2 L of oxygen. Receiving IV nitroglycerin at 10 mcg/m, and IV heparin via weightbase protocol. The patient's also receiving saline at KVO. The patient is scheduled to have a bedside spirometry. She has just been evaluated by cardiothoracic surgery. Current labs include a sodium 137, potassium 5.1, chlorides 106, CO2 21, BUN 27 creatinine 1.25. Thyroid function is normal. Chest x-ray is positive for cardiomegaly, and possible chronic interstitial lung disease. Progress note dated 05/27/2022. 77-year-old female seen yesterday in consultation. She seen again today in the intensive care unit, room 256. It was decided by surgery, the patient was not a good surgical candidate for bypass procedure. Hence, the patient will be treated medically. She's currently on 2 L of oxygen. She is receiving IV heparin. She is getting saline at 75 mL per hour. White count 10.1, hemoglobin 14.7, hematocrit 43.2, and platelet count was normal. PTT was 70.6. Sodium 139, potassium 4.5, chlorides 106, CO2 29, BUN 27, and creatinine 1.27. Progress note dated 05/28/2022. 77-year-old female seen today in the intensive care unit, room 256. The patient's on room air. She's getting saline at KVO. She remains on IV heparin. She received Lasix 40 mg IV push, from cardiology yesterday. Patient had an uneventful night. She is waiting for a bed out on the cardiac floor. CBC today is normal. PTT is 67. Sodium 136, potassium 4.6, chlorides 101, CO2 32, BUN 2 5, and creatinine 1.20. Progress note dated 05/29/2022. 77-year-old female seen again today in the intensive care unit, room 256. The patient's on room air. She's receiving saline at KVO. Clinically, she had an uneventful night and day. According to the nurse, she is doing well. She was waiting for a bed out on the cardiology floor. Her glucose was measured at 170. The patient denies any chest pain or chest discomfort, palpitations, shortness of breath, cough, wheezing, or phlegm production. On 05/30/2022, the patient is being seen in a follow-up. The patient is going to undergo a cardiac catheterization today. IV fluids are KVO. The patient on room air oxygen. No other significant events overnight. Blood work from today shows edematous count 8.3 hemoglobin 15.3 and a platelet count of 46. BUN is at 20 with a creatinine of 1.2 and a sodium level is at 139. Medication was noted. The patient remains on Lasix 40 mg by mouth daily. The patient is on IV heparin. Cardiology is on the case. Echocardiogram showed systolic heart failure with an ejection fraction of 35-40%. There is severely increased left ventricular mass. Increase in wall thickness. LV is quite dila bernadette and the patient has +2 mitral regurgitation. On today's evaluation of 05/31/2022, the patient is being seen in follow-up in the intensive care unit. As mentioned earlier, the patient is known to have CAD, previous LA, multiple coronary stents, hypertension hyperlipidemia and diabetes mellitus and chronic kidney disease. The patient also has underlying CHF with an ejection fraction of 35-40% and based on echocardiogram, there was increased thickness of LV wall and the LV was dilated with +2 mitral regurgitation. The patient underwent cardiac catheterization yesterday. This was done by cardiology and the patient was found to have significant lesion of the first obtuse marginal branch of the circumflex and main circumflex coronary artery. Intravascular ultrasound of the circumflex vessel and shockwave lithotripsy of the left circumflex artery was done. The patient had a total of 3 stents inserted. During the procedure, the patient became progressively more short of breath and she went into decompensate heart failure and pulmonary edema. She was briefly placed on a BiPAP and she'll get moved to the intensive care unit. She was also given Lasix and nitroglycerin drip. She was placed on a Lasix drip at 10 mg an hour and the net fluid balance has been more than 3 L she is she was started on a Lasix drip. This morning, the Lasix drip has been discontinued and the patient is currently on 40 mg IV Lasix every 8 hours. She is much more comfortable at this point in time. Breathing is stable. She remains on aspirin. She is on Plavix. She is also on Aldactone and Entresto to optimize her CHF. She remains on high-dose statins. She is on metoprolol XL 75 mg daily and she is also on heparin subcu for DVT prophylaxis. Denies having any chest pain. The chest x-ray from today shows cardiomegaly. Nevertheless, there is no active signs of pulmonary edema. Her volume status is improved. The patient is currently on 4 L of oxygen by nasal cannula with a pulse ox of 94%. On 06/01/2022, the patient is being seen for a follow-up., Comfortable on 2 L of oxygen by nasal cannula. No new complaints. Her night was uneventful. Cardiac rhythm is sinus and the rate is controlled for now. She remains on IV Lasix 40 mg every 8 hours. Overall fluid balance over the past 24 hours has been in the order of -2.8 L and the patient has been diuresing adequately. Blo od work and electrolytes from today shows a BUN of 27 and a creatinine of 1.4 and a sodium level is at 135. Creatinine has remained essentially stable compared to yesterday. CBC still pending for now. No chest x-ray for today. She is off the nitroglycerin drip. Her blood pressures under adequate control. She remains on aspirin and Plavix. Her CHF is being further optimized. She has an incentive spirometer and she has not used the BiPAP over the past 24 hours. On today's evaluation of 06/02/2022, the patient has no complaints. The patient is possibly going to get discharged home. Objective - Vital Signs Vital signs: Vital Signs Temp 97.5 F L 06/02/22 12:00 Pulse 85 06/02/22 12:00 Resp 20 06/02/22 12:00 BP 105/60 06/02/22 12:00 Pulse Ox 98 06/02/22 12:00 FiO2 100 05/30/22 13:35 Intake & Output 06/01/22 06/02/22 06/02/22 18:59 06:59 18:59 Intake Total 260 298 Output Total 575 Balance -315 298 Weight 125.8 kg Intake: IV 20 0.9 20 Oral 240 298 Output: Urine 575 Other: Voiding Method Bedside Commode Toilet Toilet # Voids 1 1 # Bowel Movements 1 - Exam No acute distress, oriented 3. Obese white female. Currently on room air. HEENT examination is grossly unremarkable. Neck supple. Full range of motion. No adenopathy thyromegaly or neck vein distention. Cardiovascular examination reveals regular rhythm rate. S1-S2 normal. No S3 or S4. No discernible murmur noted. Lungs reveal clear breath sounds. Breath sounds are equal bilaterally. No adventitious lung sounds including wheezes rhonchi or crackles. Abdomen soft bowel sounds are heard. No masses or tenderness. Extremities are intact. No cyanosis clubbing or edema. Skin is without rash or lesion. Neurologic examination is brief but nonfocal. - Labs CBC & Chem 7: 05/31/22 06:12 06/02/22 08:42 Labs: Abnormal Lab Results - Last 24 Hours (Table) 06/01/22 06/02/22 06/02/22 Range/Units 20:04 00:28 02:02 Chloride (98-107) mmol/L Carbon Dioxide (22-30) mmol/L BUN (7-17) mg/dL Creatinine (0.52-1.04) mg/dL Glucose (74-99) mg/dL POC Glucose (mg/dL) 322 H 58 L 123 H (70-110) mg/dL 06/02/22 06/02/22 06/02/22 Range/Units 06:06 08:42 11:40 Chloride 97 L (98-107) mmol/L Carbon Dioxide 33 H (22-30) mmol/L BUN 23 H (7-17) mg/dL Creatinine 1.22 H (0.52-1.04) mg/dL Glucose 144 H (74-99) mg/dL POC Glucose (mg/dL) 114 H 157 H (70-110) mg/dL Assessment and Plan Plan: Acute non-ST segment elevation myocardial infarction, with known history of CAD, and PCI with previous stents 6. The patient underwent a repeat cardiac catheterization yesterday. 3 additional stents were given and the circumflex and obtuse marginal branch of the circumflex. Acute pulmonary edema with secondary shortness of breath, improving, the patient is currently on 2 L of oxygen by nasal cannula and a pulmonary edema is improving Acute hypoxic respiratory failure currently on 2 L of oxygen by nasal cannula Systolic heart failure with an ejection fraction of 35-40% with +2 mitral regurgitation Cardiomyopathy with dilated LV and systolic heart failure with +2 mitral regurgitation and the patient is an ejection fraction of 35-40% History of previous myocardial infarction, 2. History of hypertension. Hyperlipidemia. Diabetes mellitus. Chronic kidney disease. Obesity. Lifelong nonsmoker. Plan Patient is being discharged home today Acute pulmonary edema is recovered Cardiac medications were all noted Continue using incentive spirometer Follow-up with cardiology
--- NOTE | 2022-06-02 17:04 | P.DS ---
Providers Date of admission: 05/25/22 13:46 Expected date of discharge: 06/02/22 Attending physician: Dylan Moffett Consults: 05/25/22 13:44 Consult Physician Urgent Consulting Provider: Yolie Foley Consult Reason/Comments: nstemi Do you want consulting provider notified?: Already Contacted 05/26/22 09:22 Consult Physician Routine Consulting Provider: Wade Mcallister Consult Reason/Comments: preop clearance Do you want consulting provider notified?: Already Contacted 05/26/22 09:26 Consult Physician Routine Consulting Provider: Tiffany Valera Consult Reason/Comments: cad, cabg Do you want consulting provider notified?: Yes Primary care physician: [facility] Course: Chief Complaint: Chest pain This is a pleasant 76-year-old patient who follows with Dr. Miller. Systems Q[employer] Analyst Dr. Krause. Chronic stable medical conditions include diabetes, hypertension, hyperlipidemia, CAD with stent 5 in 2018. Patient was admitted here in March with CHF exacerbation. Patient states that she's had chest pain on and off for some time. Close to a year ago patient did have a stress test as well as negative. Patient was scheduled to have another stress test. Presented today with much increasing chest pain. The normal. Nitroglycerin has sometimes other times not. No shortness of breath no fever or chills no cough. Patient has chronic lower extremity edema. Patient is described pain as all over the chest. No dizziness no lightheadedness. No radiation. May 26: Underwent cardiac catheterization this morning by Dr. Salazar. Was found to have three-vessel CAD with chronically occluded RCA, with [id number] collaterals, patent stents and a possibly plaque rupture in the LAD and significant stenosis involving the ostial OM. And the diagonal branches. Dr. Hunt from cardiothoracic surgery evaluated the patient for three-vessel bypass. Patient was concerned about her findings. Had a lengthy discussion with the patient. And reassured about the findings in terms of treatment and outcomes. She feels better. On IV heparin. May 27: Up in a chair. Had a small episode of chest pain today. Remains on IV heparin. Per cardiothoracic team: Recommend angioplasty. If not then recommends JESUS to look anatomy will closely.. May 28: Up in a chair. Somewhat tearful about once going on. Reassured. IV heparin. Possible intervention tomorrow/Batsheva by Dr. Foley. May 29: Up in a chair. Seen by cardiology earlier. Statin added. Amlodipine discontinued. Possible intervention in the next 24 hours May 30: ICU: Post procedure. Pertinent a nurse patient had 2 stents in the circumflex and 1 and OM today. Just falling that patient became very short of breath. Patient is put on IV nitro drip and IV Lasix drip. Diagnosed well. Then brought to the ICU. Patient put out about significant urine. Discussed patient. Reassured. Patient is currently on IV Lasix drip. No heparin drip. Currently on 9 L of oxygen May 31: ICU. Up in a chair. Breathing better. Down to 2 L of nasal cannula. Lisinopril is being changed to Entresto tomorrow. Patient not very keen on hospital food. Consult PTOT. Lasix drip changed over to IV Lasix 40 mg every 8. Check stat x-ray shows some mild venous prominence June 01: ICU. Up in a chair. Did walk a bit. Breathing stable. On room air. Does not like hospital food. Per cardiology hopefully discharge tomorrow. Changed to oral Lasix June 02: Stable. No new issues. Discussed with the patient. Cleared by cardiology. He'll follow-up with them. Past medical history to include: Diabetes, hypertension, hyperlipidemia, [place] in 2010, CAD with stent in 2019 Social history: . No smoking or alcohol Physical examination: VITAL SIGNS: 97.5, 85, 20, 105/60, 98% room air GENERAL: BMI 51.2, up in a chair EYES: Pupils equal. Conjunctiva normal. HEENT: External appearance of nose and ears normal, oral cavity grossly normal. NECK: JVD not raised; masses not palpable. HEART: First and second heart sounds are normal; some edema. LUNGS: Respiratory rate normal; decreased breath sound. ABDOMEN: Soft, nontender, liver spleen not palpable, no masses palpable. PSYCH: Alert and oriented x3; mood and affect anxious MUSCULOSKELETAL:No Clubbing/cyanosis;muscles-grossly intact. OA INVESTIGATIONS, reviewed in the clinical context: June 02: Potassium 3.9 BUN 23 creatinine 1.2 to May 31: White count 11.4 hemoglobin 12.8 platelets 140 sodium 137 potassium 4.9 creatinine 1.36 2-D echocardiogram [May 26] EF 35-40%. Wall motion abnormality. May 26: White count 8.2 hemoglobin 14.1 platelets 143 potassium 5.1 BUN 27 creatinine 1.25 HbA1c 6.5 TSH 1.6 EKG tracing personally reviewed by me-sinus tachycardia. ST-T wave changes. Across. Chest x-ray film personally reviewed by me-cardiomegaly. Prominent pulmonary artery WBC 8.3 hemoglobin 14.5 platelets 172 sodium 137 potassium 4.9 BUN 23 creatinine 1.23, Troponin I 0.0118, 0.608 Assessment and plan: -Acute non-Q-wave [place]. Known CAD. Aspirin, IV heparin, beta darian -3-vessel CAD with chronically occluded RCA, with [id number]-tm-[id number] collaterals, patent stents and a possibly plaque rupture in the LAD and significant stenosis involving the ostial OM. And the diagonal branches: Slow to respond Aspirin, Toprol-XL, Zestril being changed over to Entresto, Lipitor. May 30: 2 stents to the circumflex and was stents to OM1 by Dr. JUAN CARLOS Foley. Would require IFR of the LAD at a later time -Acute flash pulmonary edema following coronary intervention today [May 30]: Better patient is put on IV nitro drip followed by Nitropaste. By mouth Lasix -Acute on chronic congestive diastolic heart failure of systolic dysfunction, EF 35-40%, ischemic cardiomyopathy: Better Lasix 40 mg twice a day. Aldactone 12.5 mg -Diabetes mellitus type 2, chronically on insulin Humalog mix 75/25 twice a day follow Accu-Cheks with sliding scale -Essential hypertension Toprol-XL, Entresto from tomorrow -Acute kidney injury, ATN likely cardiorenal Creatinine was 0.98 on 03/21/2022. . -Morbid obesity BMI 51.2 Weight loss measures. Follow with PCP. Disposition: Home Plan - Discharge Summary Discharge Rx Participant: No New Discharge Prescriptions: New Aspirin 81 mg PO DAILY tab Sacubitril/Valsartan [Entresto 24 mg-26 mg Tablet] 1 each PO BID #60 tab Atorvastatin [Lipitor] 80 mg PO DAILY #30 tab Metoprolol Succinate (ER) [Toprol Xl] 50 mg PO HS #30 tab Continue Clopidogrel Bisulfate [Plavix] 75 mg PO DAILY Nitroglycerin Sl Tabs [Nitrostat] 0.4 mg SUBLINGUAL Q5M PRN #25 tab PRN Reason: Chest Pain Ascorbic Acid [Vitamin C] 1,000 mg PO DAILY Cyanocobalamin [Vitamin B-12] 500 mcg PO DAILY Acetylcysteine [Nac] 600 mg PO DAILY Insulin Lispro Protamin/Lispro [humaLOG MIX 75-25 Kwikpen] 40 - 55 unit SQ BID Spironolactone [Aldactone] 12.5 mg PO DAILY #45 tablet Magnesium Oxide [Magnesium] 500 mg PO DAILY Ergocalciferol [Vitamin D2 (1250 Mcg = 50795 Iu)] 1,250 mcg PO SAMUELS Biotin 5 mg PO DAILY Changed Furosemide [Lasix] 40 mg PO BID #90 tablet Metoprolol Succinate (ER) [Toprol XL] 25 mg PO HS #0 Discontinued amLODIPine BESYLATE [Norvasc] 10 mg PO DAILY Zinc Gluconate [Zinc] 50 mg PO DAILY No Action Isosorbide Mononitrate ER [Imdur] 30 mg PO DAILY #30 tab Enalapril Maleate [Vasotec] 20 mg PO HS #0 Discharge Medication List Clopidogrel Bisulfate [Plavix] 75 mg PO DAILY 06/20/18 [History] Nitroglycerin Sl Tabs [Nitrostat] 0.4 mg SUBLINGUAL Q5M PRN #25 tab 06/22/18 [Rx] Insulin Lispro Protamin/Lispro [humaLOG MIX 75-25 Kwikpen] 40 - 55 unit SQ BID 03/21/22 [History] Acetylcysteine [Nac] 600 mg PO DAILY 03/22/22 [History] Ascorbic Acid [Vitamin C] 1,000 mg PO DAILY 03/22/22 [History] Cyanocobalamin [Vitamin B-12] 500 mcg PO DAILY 03/22/22 [History] Enalapril Maleate [Vasotec] 20 mg PO HS #0 03/22/22 [Rx] Ergocalciferol [Vitamin D2 (1250 Mcg = 07028 Iu)] 1,250 mcg PO SAMUELS 03/22/22 [History] Isosorbide Mononitrate ER [Imdur] 30 mg PO DAILY #30 tab 03/22/22 [Rx] Magnesium Oxide [Magnesium] 500 mg PO DAILY 03/22/22 [History] Spironolactone [Aldactone] 12.5 mg PO DAILY #45 tablet 03/22/22 [Rx] Biotin 5 mg PO DAILY 05/25/22 [History] Aspirin 81 mg PO DAILY tab 06/02/22 [Rx] Atorvastatin [Lipitor] 80 mg PO DAILY #30 tab 06/02/22 [Rx] Furosemide [Lasix] 40 mg PO BID #90 tablet 06/02/22 [Rx] Metoprolol Succinate (ER) [Toprol XL] 25 mg PO HS #0 06/02/22 [Rx] Metoprolol Succinate (ER) [Toprol Xl] 50 mg PO HS #30 tab 06/02/22 [Rx] Sacubitril/Valsartan [Entresto 24 mg-26 mg Tablet] 1 each PO BID #60 tab 06/02/22 [Rx] Follow up Appointment(s)/Referral(s): Swapnil Miller MD [Primary Care Provider] - 06/07/22 11:00 am (with ROSSI) Angel Krause MD [STAFF PHYSICIAN] - 06/14/22 8:15 am Patient Instructions/Handouts: Heart Attack (DC) Discharge Disposition: HOME WITH HOME HEALTH SERVICES
== END 2022-06-02 13:51 | disposition home health service (06) | DRG 246 ==
LOC: EC 11:23 → 3SCARD 13:46 → 2SICU 05-26 08:27 → 3SCARD 05-29 23:16 → 2SICU 05-30 12:57 → 3SCARD 06-01 17:27
PROVIDERS: ADMIT Hospitalist; ATTEND Hospitalist
PROC: 4A023N7 Measurement of Cardiac Sampling and Pressure, Left Heart, Percutaneous Approach (ICD-10-PCS; 2022-05-30)
PROC: B2111ZZ Fluoroscopy of Multiple Coronary Arteries using Low Osmolar Contrast (ICD-10-PCS; 2022-05-30)
PROC: 027135Z Dilation of Coronary Artery, Two Arteries with Two Drug-eluting Intraluminal Devices, Percutaneous Approach (ICD-10-PCS; principal; 2022-05-30 10:30)
PROC: 02F03ZZ Fragmentation in Coronary Artery, One Artery, Percutaneous Approach (ICD-10-PCS; 2022-05-30 10:30)
PROC: B240ZZ3 Ultrasonography of Single Coronary Artery, Intravascular (ICD-10-PCS; 2022-05-30 10:30)
PROC: 5A09357 Assistance with Respiratory Ventilation, Less than 24 Consecutive Hours, Continuous Positive Airway Pressure (ICD-10-PCS; 2022-05-30 10:30)
DX: I21.4 Non-ST elevation (NSTEMI) myocardial infarction (principal); I50.43 Acute on chronic combined systolic (congestive) and diastolic (congestive) heart failure; J96.01 Acute respiratory failure with hypoxia; N17.0 Acute kidney failure with tubular necrosis; I13.0 Hypertensive heart and chronic kidney disease with heart failure and stage 1 through stage 4 chronic kidney disease, or unspecified chronic kidney disease; Z68.43 Body mass index [BMI] 50.0-59.9, adult; J84.9 Interstitial pulmonary disease, unspecified; I25.82 Chronic total occlusion of coronary artery; E11.22 Type 2 diabetes mellitus with diabetic chronic kidney disease; N18.9 Chronic kidney disease, unspecified; E66.01 Morbid (severe) obesity due to excess calories; I34.0 Nonrheumatic mitral (valve) insufficiency; R00.0 Tachycardia, unspecified; I89.0 Lymphedema, not elsewhere classified; E78.5 Hyperlipidemia, unspecified; F41.9 Anxiety disorder, unspecified; I25.110 Atherosclerotic heart disease of native coronary artery with unstable angina pectoris; M19.90 Unspecified osteoarthritis, unspecified site; R01.1 Cardiac murmur, unspecified; I87.2 Venous insufficiency (chronic) (peripheral); I25.5 Ischemic cardiomyopathy; K59.00 Constipation, unspecified; Z96.651 Presence of right artificial knee joint; Z95.5 Presence of coronary angioplasty implant and graft; Z28.310 Unvaccinated for COVID-19; Z79.82 Long term (current) use of aspirin; Z79.02 Long term (current) use of antithrombotics/antiplatelets; Z79.899 Other long term (current) drug therapy; Z79.4 Long term (current) use of insulin; Z88.0 Allergy status to penicillin; I25.2 Old myocardial infarction; Z82.49 Family history of ischemic heart disease and other diseases of the circulatory system; Z85.42 Personal history of malignant neoplasm of other parts of uterus
CPT/HCPCS: 0715T; 36415; 71045; 71046; 80048; 80053; 80061; 80074; 81001; 83036; 83735; 84443; 84484; 85025; 85027; 85610; 85730; 87070; 92978; 93005; 93306; 93458; 93880; 93970; 94660; 94760; 96365; 96366; 96368; 96375; 99291

== ENCOUNTER 2022-11-02 16:19 | Inpatient (IN) | payer MEDICARE ==
[2022-11-02 18:55] LABS: Basophils % (A) 0 %; Eosinophils # (A) 0.1 k/uL (0-0.7); Eosinophils % (A) 1 %; HCT 42.7 % (34.0-46.0); HGB 14.1 gm/dL (11.4-16.0); Lymphocytes % (A) 9 %; MCH 30.9 pg (25.0-35.0); MCHC 33.1 g/dL (31.0-37.0); MCV 93.2 fL (80.0-100.0); Mean Platelet Volume 10.6; Monocytes # (A) 0.5 k/uL (0-1.0); Monocytes % (A) 5 %; Neutrophils # (A) 8.9 k/uL (1.3-7.7); Neutrophils % (A) 84 %; Platelet Count 181 k/uL (150-450); RBC 4.58 m/uL (3.80-5.40); RDW 13.4 % (11.5-15.5); WBC 10.6 k/uL (3.8-10.6)
[2022-11-02 19:01] LABS: ALT 25 U/L (4-34); AST 34 U/L (14-36); African American GFR (CKD) 42 (>60 ml/min/1.73 sqM); Albumin 3.5 g/dL (3.5-5.0); Alkaline Phosphatase 118 U/L (38-126); Anion Gap 9 mmol/L; Blood Urea Nitrogen 31 mg/dL (7-17); Calcium 9.2 mg/dL (8.4-10.2); Carbon Dioxide 27 mmol/L (22-30); Chloride 101 mmol/L (98-107); Glucose 164 mg/dL (74-99); Non-African American GFR(CKD) 37 (>60 ml/min/1.73 sqM); Potassium 4.6 mmol/L (3.5-5.1); Sodium 137 mmol/L (137-145); Total Bilirubin 1.5 mg/dL (0.2-1.3); Total Protein 6.6 g/dL (6.3-8.2)
[2022-11-02 19:08] LABS: Partial Thromboplastin Time 23.9 sec (22.0-30.0); Prothrombin Time 10.2 sec (9.0-12.0)
[2022-11-02 19:10] LABS: NT-Pro-B-Type Natriuretic Pept 11400 pg/mL
--- NOTE | 2022-11-02 19:23 | XR ---
EXAMINATION TYPE: XR chest 2V DATE OF EXAM: 11/02/2022 7:11 PM CLINICAL INDICATION:Female, 77 years old with history of difficulty breathing; [facility] COMPARISON: Chest radiographs from 05/31/2022 TECHNIQUE: XR chest 2V Frontal and lateral views of the chest. FINDINGS: Lungs/Pleura: No evidence of focal consolidation or pneumothorax. Blunting of the costophrenic angles is present. Pulmonary vascularity: Mild pulmonary vascular congestion. Heart/mediastinum: Cardiomediastinal silhouette is enlarged and stable. Musculoskeletal: No acute osseous pathology. Other findings: None Lines/Tubes: IMPRESSION: Cardiomegaly, pulmonary vascular congestion and bilateral pleural effusions. Correlate with BNP for c ongestive heart failure.
[2022-11-02] MEDS ORDERED: MORPHINE SULFATE 4 MG/ML SYRINGE IV STA (19:37)
[2022-11-02] MEDS ORDERED: ASPIRIN 81 MG PO STA (19:37)
[2022-11-02] MEDS ORDERED: NITROGLYCERIN OINT 1 INCH/GM PACKET TOPICAL STA (19:37)
[2022-11-02] MEDS ORDERED: MORPHINE SULFATE 4 MG/ML SYRINGE IV PRN (19:54)
[2022-11-02] MEDS ORDERED: HEPARIN SODIUM 1,000 UN/ML (10ML VL) IV ONE (19:54)
[2022-11-02] MEDS ORDERED: FUROSEMIDE 10 MG/ML 4 ML VIAL IV STA (19:57)
--- NOTE | 2022-11-02 20:06 | ED ---
SOB HPI - General Chief Complaint: Shortness of Breath Stated Complaint: ERIK Time Seen by Provider: 11/02/22 17:51 Source: patient Mode of arrival: wheelchair Limitations: no limitations - History of Present Illness Initial Comments: This patient is a 77-year-old woman with history of congestive heart failure who presents with complaint that she feels like her shortness of breath has been getting worse. She noticed this a number days ago probably Sunday. It was briefly better but is been getting worse past few days. She also notes that she is having leg swelling. Patient has history of lymphedema but states that her leg swelling is deftly worse. She has not noted fever or rash to the legs. She also notes that over the interval since the shortness of breath developed she has been having episodes of which she states is like her usual angina pain. I does resolve and has not been constant. She did not note diaphoresis, nausea or vomiting. MD Complaint: shortness of breath, chest pain Onset/Timin -: days(s) Quality: dull Consistency: intermittent Improves With: nothing Worsens With: nothing Known History Of: congestive heart failure Associated Symptoms: chest pain, lower extremity pain Treatments Prior to Arrival: none - Related Data Home Oxygen Therapy: No Home Medications Medication Instructions Recorded Confirmed Clopidogrel Bisulfate [Plavix] 75 mg PO DAILY 06/20/18 11/02/22 Insulin Lispro Protamin/Lispro 1 - 55 unit SQ BID 03/21/22 11/02/22 [humaLOG MIX 75-25 Kwikpen] Ascorbic Acid [Vitamin C] 1,000 mg PO DAILY 03/22/22 11/02/22 Ergocalciferol [Vitamin D2 (1250 1,250 mcg PO MO 03/22/22 11/02/22 Mcg = 94267 Iu)] Magnesium Oxide [Magnesium] 500 mg PO DAILY 03/22/22 11/02/22 Cholecalciferol [Vitamin D3 (25 25 mcg PO DAILY 11/02/22 11/02/22 Mcg = 1000 Iu)] Furosemide [Lasix] 40 mg PO DAILY 11/02/22 11/02/22 Isosorbide Mononitrate ER [Imdur] 60 mg PO DAILY 11/02/22 11/02/22 Sacubitril/Valsartan [Entresto 24 1 tab PO DAILY 11/02/22 11/02/22 mg-26 mg Tablet] Vitamin B Complex 1 cap PO DAILY 11/02/22 11/02/22 carvediloL [Coreg] 3.125 mg PO DIRECTED 11/02/22 11/02/22 Previous Rx's Medication Instructions Recorded Nitroglycerin Sl Tabs [Nitrostat] 0.4 mg SUBLINGUAL Q5M PRN #25 tab 06/22/18 Spironolactone [Aldactone] 12.5 mg PO DAILY #45 tablet 03/22/22 Atorvastatin [Lipitor] 80 mg PO DAILY #30 tab 06/02/22 Allergies Allergy/AdvReac Type Severity Reaction Status Date / Time Penicillins Allergy Rash/Hives/ Verified 11/02/22 18:04 Blistering Review of Systems ROS Statement: Those systems with pertinent positive or pertinent negative responses have been documented in the HPI. ROS Other: All systems not noted in ROS Statement are negative. Constitutional: Denies: fever, chills ENT: Denies: congestion Respiratory: Reports: dyspnea. Denies: cough, wheezes Cardiovascular: Reports: dyspnea on exertion, orthopnea, edema. Denies: palpitations, syncope Gastrointestinal: Denies: abdominal pain, vomiting, diarrhea, melena, hematochezia Genitourinary: Denies: dysuria, hematuria Musculoskeletal: Denies: back pain Skin: Denies: rash Neurological: Denies: headache, weakness Past Medical History Past Medical History: Coronary Artery Disease (CAD), Cancer, Chest Pain / Angina, Diabetes Mellitus, Hyperlipidemia, Hypertension, Myocardial Infarction ([place]), Pneumonia Additional Past Medical History / Comment(s): 6 stents placed and 2 heart attacks; uterine cancer 2011 Last Myocardial Infarction Date:: 2018 History of Any Multi-Drug Resistant Organisms: None Reported Past Surgical History: Cholecystectomy, Heart Catheterization With Stent, Hysterectomy, Orthopedic Surgery Additional Past Surgical History / Comment(s): right knee replacement-2017. D&C x 2. History of cardiac stent placement x5. June 2018. last cardiac stent tatiana cement. Left leg vein stripping Past Anesthesia/Blood Transfusion Reactions: No Reported Reaction Date of Last Stent Placement:: 2019 Past Psychological History: No Psychological Hx Reported Smoking Status: Never smoker Past Alcohol Use History: None Reported Past Drug Use History: None Reported - Past Family History Mother Family Medical History: CVA/TIA, Myocardial Infarction ([place]) Additional Family Medical History / Comment(s): at 94 years old Father Family Medical History: CVA/TIA Additional Family Medical History / Comment(s): Dietd at 98 years old Brother(s) Family Medical History: Cancer, Coronary Artery Disease (CAD) Additional Family Medical History / Comment(s): Heart disease diagnosed in his 40s Son(s) Family Medical History: No Reported History Daughter(s) Family Medical History: No Reported History General Exam Limitations: no limitations General appearance: alert, in no apparent distress Head exam: Present: atraumatic, normocephalic Eye exam: Present: normal appearance Neck exam: Present: normal inspection Respiratory exam: Present: rales (Bilateral bases). Absent: wheezes, rhonchi, stridor, accessory muscle use Cardiovascular Exam: Present: normal rhythm, tachycardia, normal heart sounds. Absent: systolic murmur, diastolic murmur, rubs, gallop GI/Abdominal exam: Present: soft. Absent: distended, tenderness, guarding, rebound, rigid Extremities exam: Present: normal capillary refill, pedal edema. Absent: calf tenderness Back exam: Present: normal inspection. Absent: CVA tenderness (R), CVA tenderness (L) Neurological exam: Present: alert Skin exam: Present: warm, dry, intact, normal color. Absent: rash Course Vital Signs 11/02/22 11/02/22 11/02/22 16:24 18:41 20:33 Temperature 98.0 F Pulse Rate 128 H 105 H 111 H Respiratory 18 24 20 Rate Blood Pressure 118/65 136/72 129/69 O2 Sat by Pulse 98 99 91 L Oximetry 11/02/22 11/02/22 11/03/22 23:09 23:30 00:00 Temperature Pulse Rate 103 H 102 H 105 H Respiratory 18 22 19 Rate Blood Pressure 134/68 134/68 145/60 O2 Sat by Pulse 99 100 100 Oximetry 11/03/22 11/03/22 11/03/22 01:00 02:00 03:00 Temperature Pulse Rate 101 H 90 89 Respiratory 20 21 23 Rate Blood Pressure 137/65 132/69 123/67 O2 Sat by Pulse 96 94 L 99 Oximetry 11/03/22 11/03/22 11/03/22 07:17 12:07 18:38 Temperature 98.2 F 98.2 F Pulse Rate 96 89 98 Respiratory 22 22 18 Rate Blood Pressure 123/70 114/72 122/80 O2 Sat by Pulse 98 94 L 96 Oximetry Medical Decision Making - Medical Decision Making This patient is 77-year-old woman presenting with dyspnea, edema, and intermittent chest pains over past days. There appears to be definite congestive heart failure exacerbation. The patient's troponin is elevated consistent with NSTEMI. Patient started on heparin, aspirin, nitrates, and will also provide some diuresis. Patient admitted for further management as well as cardiology consultation Was pt. sent in by a medical professional or institution (, PA, SENIOR BUYER, urgent ca re, hospital, or detention...) When possible be specific @ -[No] Did you speak to anyone other than the patient for history (EMS, parent, family, police, friend...)? What history was obtained from this source @ -[No] Did you review nursing and triage notes (agree or disagree)? Why? @ -[I reviewed and agree with nursing and triage notes] Were old charts reviewed (outside hosp., previous admission, EMS record, old EKG, old radiological studies, urgent care reports/EKG's, detention records)? Report findings @ -[No old charts were reviewed] Differential Diagnosis (chest pain, altered mental status, abdominal pain women, abdominal pain men, vaginal bleeding, weakness, fever, dyspnea, syncope, headache, dizziness, GI bleed, back pain, seizure, CVA, palpatations, mental health, musculoskeletal)? @ -[Differential Dyspnea: Coronary syndrome, arrhythmia, tamponade, asthma, COPD, pulmonary embolism, pneumonia, pneumothorax, pulmonary effusion, anaphylaxis, diabetic ketoacidosis, flailed chest, pulmonary contusion, diaphragmatic rupture, anemia, neuromuscular, this is not meant to be an all-inclusive list. EKG interpreted by me (3pts min.). @ -[I interpreted as above X-rays interpreted by me (1pt min.). @ -[I interpreted as above CT interpreted by me (1pt min.). @ -[None done] U/S interpreted by me (1pt. min.). @ -[None done] What testing was considered but not performed or refused? (CT, X-rays, U/S, labs)? Why? @ -[None] What meds were considered but not given or refused? Why? @ -[None] Did you discuss the management of the patient with other professionals (professionals i.e. , PA, SENIOR BUYER, lab, RT, psych nurse, social sciences department chair, senior sales associate, teacher, staff submarine warfare officer, top case assembler)? Give summary @ -[Case is discussed with admitting physician and with cardiology on-call, patient be admitted, there treatment recommendations are incorporated Was smoking cessation discussed for >3mins.? @ -[No] Was critical care preformed (if so, how long)? @ -[Yes, 35 minutes Were there social determinants of health that impacted care today? How? (Homelessness, low income, unemployed, alcoholism, drug addiction, transportation, low edu. Level, literacy, decrease access to med. care, longterm, rehab)? @ -[No] Was there de-escalation of care discussed even if they declined (Discuss DNR or withdrawal of care, Hospice)? DNR status @ -[No] What co-morbidities impacted this encounter? (DM, HTN, Smoking, COPD, CAD, Cancer, CVA, ARF, Chemo, Hep., AIDS, mental health diagnosis, sleep apnea, morbid obesity)? @ -[Coronary artery disease and congestive heart failure Was patient admitted / discharged? Hospital course, mention meds given and route, prescriptions, significant lab abnormalities, going to OR and other pertinent info. @ -[Patient admitted, as above Undiagnosed new problem with uncertain prognosis? @ -[No] Drug Therapy requiring intensive monitoring for toxicity (Heparin, Nitro, Insulin, Cardizem)? @ -[Yes, heparin Were any procedures done? @ -[No] Diagnosis/symptom? @ -[Acute exacerbation of congestive heart failure Acute NSTEMI Acute, or Chronic, or Acute on Chronic? @ -[Acute Uncomplicated (without systemic symptoms) or Complicated (systemic symptoms)? @ -[Complicated by dyspnea Side effects of treatment? @ -[No] Exacerbation, Progression, or Severe Exacerbation? @ -[No] Poses a threat to life or bodily function? How? (Chest pain, [place], [place], pneumonia, PE, COPD, DKA, ARF, appy, cholecystitis, CVA, Diverticulitis, Homicidal, Suicidal, threat to staff... and all critical care pts) @ -[Yes, untreated congestive heart failure may progress to respiratory failure as well and - Lab Data Result diagrams: 11/13/22 04:20 11/13/22 04:20 Lab Results 11/02/22 11/02/22 11/02/22 Range/Units 18:36 18:36 18:36 WBC 10.6 (3.8-10.6) k/uL RBC 4.58 (3.80-5.40) m/uL Hgb 14.1 (11.4-16.0) gm/dL Hct 42.7 (34.0-46.0) % MCV 93.2 (80.0-100.0) fL MCH 30.9 (25.0-35.0) pg MCHC 33.1 (31.0-37.0) g/dL RDW 13.4 (11.5-15.5) % Plt Count 181 (150-450) k/uL MPV 10.6 Neutrophils % 84 % Lymphocytes % 9 % Monocytes % 5 % Eosinophils % 1 % Basophils % 0 % Neutrophils # 8.9 H (1.3-7.7) k/uL Lymphocytes # 1.0 (1.0-4.8) k/uL Monocytes # 0.5 (0-1.0) k/uL Eosinophils # 0.1 (0-0.7) k/uL Basophils # 0.0 (0-0.2) k/uL PT 10.2 (9.0-12.0) sec INR 1.0 (<1.2) APTT 23.9 (22.0-30.0) sec Sodium 137 (137-145) mmol/L Potassium 4.6 (3.5-5.1) mmol/L Chloride 101 (98-107) mmol/L Carbon Dioxide 27 (22-30) mmol/L Anion Gap 9 mmol/L BUN 31 H (7-17) mg/dL Creatinine 1.40 H (0.52-1.04) mg/dL Est GFR (CKD-EPI)AfAm 42 (>60 ml/min/1.73 sqM) Est GFR (CKD-EPI)NonAf 37 (>60 ml/min/1.73 sqM) Glucose 164 H (74-99) mg/dL Lactic Ac Sepsis Rflx Plasma Lactic Acid Ángel (0.7-2.0) mmol/L Calcium 9.2 (8.4-10.2) mg/dL Total Bilirubin 1.5 H (0.2-1.3) mg/dL AST 34 (14-36) U/L ALT 25 (4-34) U/L Alkaline Phosphatase 118 (38-126) U/L Troponin I (0.000-0.034) ng/mL NT-Pro-B Natriuret Pep 53354 pg/mL Total Protein 6.6 (6.3-8.2) g/dL Albumin 3.5 (3.5-5.0) g/dL 11/02/22 11/02/22 11/02/22 Range/Units 18:36 18:36 19:02 WBC (3.8-10.6) k/uL RBC (3.80-5.40) m/uL Hgb (11.4-16.0) gm/dL Hct (34.0-46.0) % MCV (80.0-100.0) fL MCH (25.0-35.0) pg MCHC (31.0-37.0) g/dL RDW (11.5-15.5) % Plt Count (150-450) k/uL MPV Neutrophils % % Lymphocytes % % Monocytes % % Eosinophils % % Basophils % % Neutrophils # (1.3-7.7) k/uL Lymphocytes # (1.0-4.8) k/uL Monocytes # (0-1.0) k/uL Eosinophils # (0-0.7) k/uL Basophils # (0-0.2) k/uL PT (9.0-12.0) sec INR (<1.2) APTT (22.0-30.0) sec Sodium (137-145) mmol/L Potassium (3.5-5.1) mmol/L Chloride (98-107) mmol/L Carbon Dioxide (22-30) mmol/L Anion Gap mmol/L BUN (7-17) mg/dL Creatinine (0.52-1.04) mg/dL Est GFR (CKD-EPI)AfAm (>60 ml/min/1.73 sqM) Est GFR (CKD-EPI)NonAf (>60 ml/min/1.73 sqM) Glucose (74-99) mg/dL Lactic Ac Sepsis Rflx Y Plasma Lactic Acid Ángel 2.9 H* (0.7-2.0) mmol/L Calcium (8.4-10.2) mg/dL Total Bilirubin (0.2-1.3) mg/dL AST (14-36) U/L ALT (4-34) U/L Alkaline Phosphatase (38-126) U/L Troponin I 0.979 H* (0.000-0.034) ng/mL NT-Pro-B Natriuret Pep pg/mL Total Protein (6.3-8.2) g/dL Albumin (3.5-5.0) g/dL - EKG Data -: EKG Interpreted by Md EKG shows normal: QRS complexes (Intraventricular conduction delay.) Rate: normal (Rate 121 bpm) Disposition Clinical Impression: Congestive heart failure, NSTEMI (non-ST elevated myocardial infarction) Disposition: ADMITTED IP TO THIS HOSP Condition: Serious Is patient prescribed a controlled substance at d/c from ED?: No
[2022-11-02] MEDS: HEPARIN SOD,PORK IN 0.45% NACL 25,000 UNIT in 0.45% NACL 1 250ML.BAG IV SCH (20:50)
[2022-11-02 21:11] LABS: Glucose,Whole Blood 161 mg/dL (70-110)
[2022-11-03] MEDS ORDERED: NITROGLYCERIN OINT 1 INCH/GM PACKET TOPICAL SCH
[2022-11-03 05:11] LABS: ALT 20 U/L (4-34); AST 33 U/L (14-36); African American GFR (CKD) 45 (>60 ml/min/1.73 sqM); Albumin 3.2 g/dL (3.5-5.0); Alkaline Phosphatase 103 U/L (38-126); Anion Gap 4 mmol/L; Bilirubin,Unconjugated 1.5 mg/dL (0.0-1.1); Blood Urea Nitrogen 35 mg/dL (7-17); Calcium 8.7 mg/dL (8.4-10.2); Carbon Dioxide 29 mmol/L (22-30); Chloride 101 mmol/L (98-107); Glucose 188 mg/dL (74-99); Non-African American GFR(CKD) 39 (>60 ml/min/1.73 sqM); Potassium 4.7 mmol/L (3.5-5.1); Sodium 134 mmol/L (137-145); Total Bilirubin 1.5 mg/dL (0.2-1.3); Total Protein 5.9 g/dL (6.3-8.2)
[2022-11-03 07:28] LABS: Glucose,Whole Blood 213 mg/dL (70-110)
[2022-11-03] MEDS ORDERED: DEXTROSE 50% SYRINGE 50 ML IVP PRN ×2 (07:33)
--- NOTE | 2022-11-03 07:36 | P.HPIM ---
History of Present Illness This is a pleasant 77 years old female with past medical history of History of coronary artery disease status post stenting, diabetes mellitus, hypertension, hyperlipidemia Patient presents because of worsening dyspnea over one week with possible elements of orthopnea. Also patient reports worsening of leg swelling. Occasional coughing. Occasional chest pain when lying down, last episode was 2 days ago currently patient denies any chest pain or discomfort and epigastric pain or neck pain. She does not look in respiratory distress when she talks easily and she does not use accessory respiratory muscles. She denies any urinary GI or neurological specific symptoms to me. She denies smoking alcohol or illicit drugs. Her PCP is Dr. Miller and her manager mac is Dr. Krause Patient is mildly tachycardic and tachypneic labs reviewed, CBC, INR within the reference range. Creatinine is elevated 1.4, and 1.3 which is at or close to baseline of 1.2-1.4. mildly elevated lactic acid came back to normal. Troponin 1.5, 2.2 Chest x-ray: Cardiomegaly with pulmonary vascular congestion and bilateral pleural effusion. Possible congestive heart failure Echocardiogram from : Ejection fraction of 35-40% with dilated left ve ntricle with severe LV dysfunction and 2+ mitral regurgitation Review of Systems Review of systems CONSTITUTIONAL: No fever, no malaise, no fatigue. HEENT: No recent visual problems or hearing problems. Denied any sore throat. CARDIOVASCULAR: No orthopnea, PND, no palpitations, no syncope. PULMONARY: No chest wall tenderness, no hemoptysis. GASTROINTESTINAL: No diarrhea, no nausea, no vomiting, no abdominal pain. Normoactive bowel sounds. NEUROLOGICAL: No headaches, no weakness, no numbness. HEMATOLOGICAL: Denies any bleeding or petechiae. GENITOURINARY: Denies any burning micturition, frequency, or urgency. MUSCULOSKELETAL/RHEUMATOLOGICAL: Denies any joint pain, swelling, or any muscle pain. ENDOCRINE: Denies any polyuria or polydipsia. Past Medical History Past Medical History: Coronary Artery Disease (CAD), Cancer, Chest Pain / Angina, Diabetes Mellitus, Hyperlipidemia, Hypertension, Myocardial Infarction (CT), Pneumonia Additional Past Medical History / Comment(s): 6 stents placed and 2 heart attacks; uterine cancer 2011 Last Myocardial Infarction Date:: 2018 History of Any Multi-Drug Resistant Organisms: None Reported Past Surgical History: Cholecystectomy, Heart Catheterization With Stent, Hysterectomy, Orthopedic Surgery Additional Past Surgical History / Comment(s): right knee replacement-2017. D&C x 2. History of cardiac stent placement x5. June 2018. last cardiac stent placement. Left leg vein stripping Past Anesthesia/Blood Transfusion Reactions: No Reported Reaction Date of Last Stent Placement:: 2018 Past Psychological History: No Psychological Hx Reported Smoking Status: Never smoker Past Alcohol Use History: None Reported Past Drug Use History: None Reported - Past Family History Mother Family Medical History: CVA/TIA, Myocardial Infarction (CT) Additional Family Medical History / Comment(s): at 94 years old Father Family Medical History: CVA/TIA Additional Family Medical History / Comment(s): Dietd at 98 years old Brother(s) Family Medical History: Cancer, Coronary Artery Disease (CAD) Additional Family Medical History / Comment(s): Heart disease diagnosed in his 40s Son(s) Family Medical History: No Reported History Daughter(s) Family Medical History: No Reported History Medications and Allergies Home Medications Medication Instructions Recorded Confirmed Type Clopidogrel Bisulfate [Plavix] 75 mg PO DAILY 06/20/18 11/02/22 History Nitroglycerin Sl Tabs [Nitrostat] 0.4 mg SUBLINGUAL Q5M PRN #25 tab 06/22/18 11/02/22 Rx Insulin Lispro Protamin/Lispro 1 - 55 unit SQ BID 03/21/22 11/02/22 History [humaLOG MIX 75-25 Kwikpen] Ascorbic Acid [Vitamin C] 1,000 mg PO DAILY 03/22/22 11/02/22 History Ergocalciferol [Vitamin D2 (1250 1,250 mcg PO MO 03/22/22 11/02/22 History Mcg = 23481 Iu)] Magnesium Oxide [Magnesium] 500 mg PO DAILY 03/22/22 11/02/22 History Spironolactone [Aldactone] 12.5 mg PO DAILY #45 tablet 03/22/22 11/02/22 Rx Atorvastatin [Lipitor] 80 mg PO DAILY #30 tab 06/02/22 11/02/22 Rx Cholecalciferol [Vitamin D3 (25 25 mcg PO DAILY 11/02/22 11/02/22 History Mcg = 1000 Iu)] Furosemide [Lasix] 40 mg PO DAILY 11/02/22 11/02/22 History Isosorbide Mononitrate ER [Imdur] 60 mg PO DAILY 11/02/22 11/02/22 History Sacubitril/Valsartan [Entresto 24 1 tab PO DAILY 11/02/22 11/02/22 History mg-26 mg Tablet] Vitamin B Complex 1 cap PO DAILY 11/02/22 11/02/22 History carvediloL [Coreg] 3.125 mg PO DIRECTED 11/02/22 11/02/22 History Allergies Allergy/AdvReac Type Severity Reaction Status Date / Time Penicillins Allergy Rash/Hives/ Verified 11/02/22 18:04 Blistering Physical Exam Vitals: Vital Signs Temp Pulse Resp BP Pulse Ox 11/03/22 07:17 98.2 F 96 22 123/70 98 11/03/22 03:00 89 23 123/67 99 11/03/22 02:00 90 21 132/69 94 L 11/03/22 01:00 101 H 20 137/65 96 11/03/22 00:00 105 H 19 145/60 100 11/02/22 23:30 102 H 22 134/68 100 11/02/22 23:09 103 H 18 134/68 99 11/02/22 20:33 111 H 20 129/69 91 L 11/02/22 18:41 105 H 24 136/72 99 11/02/22 16:24 98.0 F 128 H 18 118/65 98 Intake and Output 11/02/22 11/03/22 11/03/22 22:59 06:59 14:59 Intake Total 95.167 Balance 95.167 Intake: Intake, IV Titration 95.167 Amount Heparin Sod,Pork in 0.45% 95.167 NaCl 25,000 unit In 0.45 % NaCl 1 250ml.bag @ 7. 874 UNITS/KG/HR 10 mls/hr IV .Q24H [facility] Rx#: [id number] Other: Weight 127.006 kg -GENERAL: The patient is alert and oriented x3, not in any acute distress. Morbidly obese. HEENT: Pupils are round and equally reacting to light. EOMI. No scleral icterus. No conjunctival pallor. Normocephalic, atraumatic. No pharyngeal erythema. No thyromegaly. CARDIOVASCULAR: S1 and S2 present. No murmurs, rubs, or gallops. PULMONARY: Chest is clear to auscultation, no wheezing , no crackles. ABDOMEN: Soft, nontender, nondistended, normoactive bowel sounds. No palpable organomegaly. MUSCULOSKELETAL: No joint swelling or deformity. -EXTREMITIES: No cyanosis, clubbing, bilateral pitting leg edema with some elements of elephantiasis and thickened skin with signs of chronicity . NEUROLOGICAL: Gross neurological examination did not reveal any focal deficits. SKIN: No rashes. no petechiae. Results CBC & Chem 7: 11/02/22 18:36 11/03/22 04:36 Labs: Abnormal Lab Results - Last 24 Hours (Table) 11/02/22 11/02/22 11/02/22 Range/Units 18:36 18:36 18:36 Neutrophils # 8.9 H (1.3-7.7) k/uL Sodium (137-145) mmol/L BUN 31 H (7-17) mg/dL Creatinine 1.40 H (0.52-1.04) mg/dL Glucose 164 H (74-99) mg/dL POC Glucose (mg/dL) (70-110) mg/dL Plasma Lactic Acid Ángel 2.9 H* (0.7-2.0) mmol/L Total Bilirubin 1.5 H (0.2-1.3) mg/dL Unconjugated Bilirubin (0.0-1.1) mg/dL Troponin I (0.000-0.034) ng/mL Total Protein (6.3-8.2) g/dL Albumin (3.5-5.0) g/dL 11/02/22 11/02/22 11/02/22 Range/Units 18:36 21:10 21:12 Neutrophils # (1.3-7.7) k/uL Sodium (137-145) mmol/L BUN (7-17) mg/dL Creatinine (0.52-1.04) mg/dL Glucose (74-99) mg/dL POC Glucose (mg/dL) 161 H (70-110) mg/dL Plasma Lactic Acid Ángel (0.7-2.0) mmol/L Total Bilirubin (0.2-1.3) mg/dL Unconjugated Bilirubin (0.0-1.1) mg/dL Troponin I 0.979 H* 1.590 H* (0.000-0.034) ng/mL Total Protein (6.3-8.2) g/dL Albumin (3.5-5.0) g/dL 11/02/22 11/03/22 11/03/22 Range/Units 21:12 04:36 04:36 Neutrophils # (1.3-7.7) k/uL Sodium 134 L (137-145) mmol/L BUN 35 H (7-17) mg/dL Creatinine 1.34 H (0.52-1.04) mg/dL Glucose 188 H (74-99) mg/dL POC Glucose (mg/dL) (70-110) mg/dL Plasma Lactic Acid Ángel 2.7 H* (0.7-2.0) mmol/L Total Bilirubin 1.5 H (0.2-1.3) mg/dL Unconjugated Bilirubin 1.5 H (0.0-1.1) mg/dL Troponin I 2.210 H* (0.000-0.034) ng/mL Total Protein 5.9 L (6.3-8.2) g/dL Albumin 3.2 L (3.5-5.0) g/dL Assessment and Plan Assessment: elevated troponin, rule out acute coronary syndrome or non-STEMI Acute and chronic dilated systolic CHF , with ejection fraction 35-40% Chronic kidney disease stage III 2+ mitral regurgitation History of coronary artery disease status post stent placement Diabetes mellitus Hypertension Hyperlipidemia History of osteoarthritis Hypothyroidism Obese with BMI of 51.2 Plan: Continue with IV Lasix Continue with aspirin, Plavix continue with heparin drip Cardiology consult Labs and medication were reviewed.. Continue same treatment. Continue with symptomatic treatment. Resume home medication. Monitor lytes and vitals. DVT and GI prophylaxis. Further recommendations depends on the clinical course of the patient DVT prophylaxis: heparin GI Prophylaxis: Pepcid PT/OT: Pending Prognosis is guarded
[2022-11-03] MEDS: INSULIN ASPART (NovoLOG) 100 UNIT/ML VIAL SQ SCH ×3 (08:08→22:32)
[2022-11-03 08:57] LABS: Chol/HDL Ratio 2.73 Ratio; LDL Cholesterol,Calculated 60.9 mg/dL (0.0-131.0); VLDL Calculation 14.52 mg/dL (5.00-40.00)
[2022-11-03] MEDS ORDERED: ASPIRIN 325 MG TAB PO SCH (09:00)
[2022-11-03] MEDS: SPIRONOLACTONE 25 MG TAB PO SCH (09:03)
[2022-11-03] MEDS: ATORVASTATIN 80 MG TAB PO SCH (09:06)
[2022-11-03] MEDS: ISOSORBIDE MONONITRATE ER 60 MG TAB.ER.24H PO SCH (09:06)
[2022-11-03] MEDS: SACUBITRIL/VALSARTAN 24 MG-26 MG TABLET PO SCH (09:06)
[2022-11-03] MEDS: CHOLECALCIFEROL 25 MCG (1000 IU) TABLET PO SCH (09:06)
[2022-11-03] MEDS: ASCORBIC ACID 500 MG TAB PO SCH (09:06)
[2022-11-03] MEDS: CLOPIDOGREL 75 MG TAB PO SCH (09:06)
[2022-11-03] MEDS: carvediloL 3.125 MG TAB PO SCH ×2 (09:08→19:58)
[2022-11-03] MEDS: FUROSEMIDE 10 MG/ML 4 ML VIAL IV SCH ×2 (09:08→16:20)
[2022-11-03 10:58] LABS: Glucose,Whole Blood 222 mg/dL (70-110)
[2022-11-03 13:48] LABS: Glucose,Whole Blood 285 mg/dL (70-110)
[2022-11-03 16:07] LABS: Glucose,Whole Blood 258 mg/dL (70-110)
[2022-11-03] MEDS: HEPARIN SOD,PORK IN 0.45% NACL 25,000 UNIT in 0.45% NACL 1 250ML.BAG IV SCH (18:33)
[2022-11-03 19:35] LABS: Glucose,Whole Blood 225 mg/dL (70-110)
--- NOTE | 2022-11-03 21:08 | CA ---
Transthoracic Echo Report Name: Drea Sosa Age: 77 Gender: F : 1945 Exam Date: 11/03/2022 15:35 Exam Location: [facility] Ht (in): 62 Wt (lb): 280 Ordering Physician: Angel Krause MD ([id number]) Attending/Referring Phys: Jimi GABRIEL Interior Wirer Blanca Caal RDCS Procedure CPT: Indications: SHORTNESS OF BREATH Cardiac Hx: Technical Quality: Technically difficult study Contrast 1: Total Dose (mL): Contrast 2: Total Dose (mL): MEASUREMENTS (Male / Female) Normal Values 2D ECHO LV Diastolic Diameter PLAX 6.5 cm 4.2 - 5.9 / 3.9 - 5.3 cm LV Systolic Diameter PLAX 5.7 cm IVS Diastolic Thickness 1.4 cm 0.6 - 1.0 / 0.6 - 0.9 cm LVPW Diastolic Thickness 1.3 cm 0.6 - 1.0 / 0.6 - 0.9 cm LV Relative Wall Thickness 0.4 RV Internal Dim ED PLAX 3.4 cm LV Diastolic Volume MOD 4C 167.5 cm??? LV Systolic Volume MOD 4C 121.1 cm??? LV Ejection Fraction MOD 4C 27.7 % LV Cardiac Index MOD 4C 1903.3 cm???/min???m??? LV Diastolic Length 4C 9.0 cm LV Systolic Length 4C 8.2 cm LV Diastolic Volume MOD 2C 142.9 cm??? LV Systolic Volume MOD 2C 127.6 cm??? LV Ejection Fraction MOD 2C 10.7 % LV Cardiac Index MOD 2C 628.2 cm???/min???m??? LV Diastolic Length 2C 8.7 cm LV Systolic Length 2C 8.3 cm LA Volume 86.3 cm??? 18 - 58 / 22 - 52 cm??? DOPPLER AV Peak Velocity 103.1 cm/s AV Peak Gradient 4.3 mmHg MV Area PHT 4.3 cm??? MV Deceleration Time 143.2 ms TR Peak Velocity 333.2 cm/s TR Peak Gradient 44.4 mmHg Right Ventricular Systolic Press 48.7 mmHg FINDINGS Left Ventricle Left ventricular ejection fraction is estimated at 20-25 %. Moderately increased septal wall thickness. Mildly increased posterior wall thickness. Severely increased left ventricular diastolic diameter. Global left ventricular hypokinesis. Right Ventricle Mild right ventricular dilatation. Moderate pulmonary hypertension. Right Atrium Normal right atrial size. Left Atrium Severely increased left atrial volume. Mildly increased left atrial area. Mitral Valve Mitral valve thickened. Mild mitral annular calcification. Moderate mitral regurgitation. Aortic Valve Aortic valve sclerosis. No aortic valve stenosis or regurgitation. Tricuspid Valve Tricuspid valve not well visualized. Moderate tricuspid regurgitation. Pulmonic Valve Pulmonic valve not well visualized. Pericardium No pericardial effusion. Aorta Aortic root and proximal ascending aorta not well visualized. CONCLUSIONS Left ventricular ejection fraction is estimated at 20-25 %. Moderately increased left ventricular thickness. Moderate mitral regurgitation Moderate tricuspid regurgitation No pericardial effusion Previewed by: Dr. Bertram Osborne DO (Electronically Signed) Final Date: 03 November 2022 21:07
--- NOTE | 2022-11-03 21:25 | CONS ---
CONSULTATION CHIEF COMPLAINT: Shortness of breath. HISTORY OF PRESENT ILLNESS: Drea is a patient with known three-vessel coronary artery disease, status post multiple prior angioplasties including most recent one in May of this year, presented to hospital complaining of shortness of breath, leg edema, and interscapular pain. Her EKG shows sinus rhythm, evidence of prior anteroseptal myocardial infarction, prior inferior wall myocardial infarction with nonspecific ST-T wave changes. Had 3 sets of troponins that are elevated at 0.9, 1.5, and 2.[address]-segment elevation OR. BUN and creatinine are elevated at 35 and 1.3. PAST MEDICAL HISTORY: Significant for coronary artery disease, status post multivessel angioplasty, hypertension, dyslipidemia, morbid obesity, ischemic cardiomyopathy. CURRENT MEDICATIONS: Include, 1. Coreg 3.125. 2. Imdur 60 daily. 3. Aldactone 12.5 daily. 4. Entresto. 5. Plavix. 6. Lasix. 7. Insulin. 8. Lipitor. ALLERGIES: To penicillin. FAMILY HISTORY: Negative for premature coronary artery disease. SOCIAL HISTORY: Denies current smoking, EtOH abuse, or drug abuse. REVIEW OF SYSTEMS: review of systems has been performed. Pertinents are as documented in the history of presenting illness. PHYSICAL EXAMINATION: VITAL SIGNS: The patient is afebrile. Heart rate is 90 beats per minute, blood pressure is 110/72, respiratory rate is 18, O2 saturation is 98% on 2 L. NECK: There is no jugular venous distention. Carotid upstroke is normal. There is no bruit. CHEST: Reveals first and second heart sounds, a grade 2/6 systolic murmur at the apex. ABDOMEN: Soft. EXTREMITIES: Reveals bilateral pitting edema. LABORATORY DATA: Show a potassium of 4.7, BUN is 35, creatinine is 1.4. Troponin is elevated at 2.2. LDL cholesterol is 60. Hemoglobin is 14.1, platelet count is 180. ASSESSMENT: 1. Acute [id number] elevation myocardial infarction. 2. Acute exacerbation of chronic systolic heart failure. PLAN: I will treat the patient with intravenous diuretics, IV heparin, aspirin, Plavix, Lipitor, nitrates, Entresto, and beta blockers. The patient will need a cardiac catheterization when she is more stable. MMODL / IJN: [id number] /
[2022-11-04] MEDS: FUROSEMIDE 10 MG/ML 4 ML VIAL IV SCH ×4 (00:07→23:39)
[2022-11-04 06:09] LABS: Glucose,Whole Blood 227 mg/dL (70-110)
[2022-11-04] MEDS: INSULIN ASPART (NovoLOG) 100 UNIT/ML VIAL SQ SCH ×4 (06:21→20:48)
[2022-11-04] MEDS ORDERED: INSULIN ASPART (NovoLOG) 100 UNIT/ML VIAL SQ SCH ×2 (07:30→14:00)
[2022-11-04] MEDS: ISOSORBIDE MONONITRATE ER 60 MG TAB.ER.24H PO SCH (09:04)
[2022-11-04] MEDS: ATORVASTATIN 80 MG TAB PO SCH (09:04)
[2022-11-04] MEDS: ASPIRIN 81 MG PO SCH (09:05)
[2022-11-04] MEDS: CHOLECALCIFEROL 25 MCG (1000 IU) TABLET PO SCH (09:05)
[2022-11-04] MEDS: carvediloL 3.125 MG TAB PO SCH ×2 (09:05→21:42)
[2022-11-04] MEDS: SACUBITRIL/VALSARTAN 24 MG-26 MG TABLET PO SCH (09:05)
[2022-11-04] MEDS: ASCORBIC ACID 500 MG TAB PO SCH (09:05)
[2022-11-04] MEDS: CLOPIDOGREL 75 MG TAB PO SCH (09:05)
[2022-11-04 09:46] LABS: African American GFR (CKD) 42 (>60 ml/min/1.73 sqM); Anion Gap 8 mmol/L; Blood Urea Nitrogen 40 mg/dL (7-17); Calcium 8.9 mg/dL (8.4-10.2); Carbon Dioxide 28 mmol/L (22-30); Chloride 99 mmol/L (98-107); Glucose 266 mg/dL (74-99); Non-African American GFR(CKD) 36 (>60 ml/min/1.73 sqM); Potassium 4.5 mmol/L (3.5-5.1); Sodium 135 mmol/L (137-145)
--- NOTE | 2022-11-04 10:03 | P.PN ---
Subjective HISTORY OF PRESENT ILLNESS: This is 77 showed female who was admitted to the hospital secondary to acute CHF and non-STEMI. Patient examined this morning. She is sitting up in the chair. She currently denies chest pain or pressure. She reports improvement in her shortness of breath. She continues to have lower extremity edema although improving. She remains on IV Lasix. Patient also remains on IV heparin. Echocardiogram completed revealing ejection fraction 20-25%, global left ventricular hypokinesis, moderate MR, and moderate TR. Patient is very tearful this morning and states she is afraid to undergo cardiac catheterization. PHYSICAL EXAM: VITAL SIGNS: Reviewed. GENERAL: Well-developed in no acute distress. NECK: Supple. No JVD or thyromegaly LUNGS: Respirations even and unlabored. Lungs essentially clear to auscultation bilaterally. HEART: Regular rate and rhythm. S1 and S2 heard. Systolic murmur noted. EXTREMITIES: Normal range of motion. No clubbing or cyanosis. Peripheral pulses intact. 2+ bilateral lower extremity edema with chronic skin discoloration noted. ASSESSMENT: Acute on chronic heart failure with reduced EF, 20-25% Non-STEMI Ischemic cardiomyopathy Valvular heart disease including moderate MR and moderate TR Coronary artery disease with previous PCI Hypertension Hyperlipidemia Morbid obesity: BMI 54.2 Chronic kidney disease PLAN: Continue current cardiac medications Continue IV Lasix 40 mg every 8 hours Daily weights, accurate I&O, and monitoring of kidney function Continue IV heparin Patient will undergo cardiac catheterization with Dr. Krause when she is medically stable Further recommendations pending patient's course Nurse practitioner note has been reviewed by physician. Signing provider agrees with the documented findings, assessment, and plan of care. Objective - Vital Signs Vital signs: Vital Signs Temp 96.3 F L 11/04/22 09:13 Pulse 108 H 11/04/22 09:13 Resp 16 11/04/22 09:13 BP 130/71 11/04/22 09:13 Pulse Ox 99 11/04/22 09:13 FiO2 Intake & Output 11/03/22 11/04/22 11/04/22 18:59 06:59 18:59 Intake Total 365.700 5561 120 Output Total 1100 200 Balance 154.833 -20 -80 Weight 134.4 kg Intake: Intake, IV Titration 154.833 Amount Heparin Sod,Pork in 0.45% 154.833 NaCl 25,000 unit In 0.45 % NaCl 1 250ml.bag @ 7. 874 UNITS/KG/HR 10 mls/hr IV .Q24H [facility] Rx#: [id number] Oral 1080 120 Output: Urine 1100 200 Other: Voiding Method Toilet - Labs CBC & Chem 7: 11/02/22 18:36 11/04/22 08:03 Labs: Abnormal Lab Results - Last 24 Hours (Table) 11/03/22 11/03/22 11/03/22 Range/Units 10:57 12:18 13:47 APTT 52.1 H (22.0-30.0) sec Sodium (137-145) mmol/L BUN (7-17) mg/dL Creatinine (0.52-1.04) mg/dL Glucose (74-99) mg/dL POC Glucose (mg/dL) 222 H 285 H (70-110) mg/dL 11/03/22 11/03/22 11/04/22 Range/Units 16:04 19:33 06:08 APTT (22.0-30.0) sec Sodium (137-145) mmol/L BUN (7-17) mg/dL Creatinine (0.52-1.04) mg/dL Glucose (74-99) mg/dL POC Glucose (mg/dL) 258 H 225 H 227 H (70-110) mg/dL 11/04/22 11/04/22 Range/Units 08:03 08:03 APTT 37.4 H (22.0-30.0) sec Sodium 135 L (137-145) mmol/L BUN 40 H (7-17) mg/dL Creatinine 1.41 H (0.52-1.04) mg/dL Glucose 266 H (74-99) mg/dL POC Glucose (mg/dL) (70-110) mg/dL
[2022-11-04 11:35] LABS: Glucose,Whole Blood 253 mg/dL (70-110)
[2022-11-04] MEDS ORDERED: DEXTROSE 50% SYRINGE 50 ML IVP PRN ×2 (13:33)
--- NOTE | 2022-11-04 13:37 | P.PN ---
Subjective Progress Note Date: 11/04/22 77 years old female with past medical history of History of coronary artery disease status post stenting, diabetes mellitus, hypertension, hyperlipidemia Patient presents because of worsening dyspnea over one week with possible elements of orthopnea. Also patient reports worsening of leg swelling. Occas ional coughing. Occasional chest pain when lying down, last episode was 2 days ago currently patient denies any chest pain or discomfort and epigastric pain or neck pain. She does not look in respiratory distress when she talks easily and she does not use accessory respiratory muscles. She denies any urinary GI or neurological specific symptoms to me. She denies smoking alcohol or illicit drugs. Her PCP is Dr. Miller and her real time analyst is Dr. Krause Patient is mildly tachycardic and tachypneic labs reviewed, CBC, INR within the reference range. Creatinine is elevated 1.4, and 1.3 which is at or close to baseline of 1.2-1.4. mildly elevated lactic acid came back to normal. Troponin 1.5, 2.2 Chest x-ray: Cardiomegaly with pulmonary vascular congestion and bilateral pleural effusion. Possible congestive heart failure Echocardiogram from : Ejection fraction of 35-40% with dilated left ventricle with severe LV dysfunction and 2+ mitral regurgitation 11/04: Patient seen and evaluated bedside, home medications reviewed. Started on high-dose correctional insulin as well as Lantus. Aldactone discontinued. Continue patient on IV Lasix, continue IV heparin planned for cardiac cat heterization Objective - Vital Signs Vital signs: Vital Signs Temp 96.3 F L 11/04/22 09:13 Pulse 88 11/04/22 12:14 Resp 16 11/04/22 12:14 BP 109/59 11/04/22 12:14 Pulse Ox 97 11/04/22 12:14 FiO2 Intake & Output 11/03/22 11/04/22 11/04/22 18:59 06:59 18:59 Intake Total 729.151 4869 366.296 Output Total 1100 400 Balance 154.833 -20 -33.704 Weight 134.4 kg Intake: Intake, IV Titration 154.833 246.296 Amount Heparin Sod,Pork in 0.45% 154.833 246.296 NaCl 25,000 unit In 0.45 % NaCl 1 250ml.bag @ 7. 874 UNITS/KG/HR 10 mls/hr IV .Q24H [facility] Rx#: [id number] Oral 1080 120 Output: Urine 1100 400 Other: Voiding Method Toilet Toilet - Exam PHYSICAL EXAMINATION: GENERAL: The patient is alert and oriented x3, . Well developed, well nourished. HEENT: Pupils are round and equally reacting to light. EOMI. No scleral icterus. No conjunctival pallor. Normocephalic, atraumatic. No pharyngeal erythema. No thyromegaly. CARDIOVASCULAR: S1 and S2 present. No murmurs, rubs, or gallops. PULMONARY: Chest is clear to auscultation, no wheezing or crackles. ABDOMEN: Soft, nontender, nondistended, normoactive bowel sounds. No palpable organomegaly. MUSCULOSKELETAL: No joint swelling or deformity. EXTREMITIES: Bilateral lower extremity edema NEUROLOGICAL: Gross neurological examination did not reveal any focal deficits. - Labs CBC & Chem 7: 11/02/22 18:36 11/04/22 08:03 Labs: Abnormal Lab Results - Last 24 Hours (Table) 11/03/22 11/03/22 11/03/22 Range/Units 13:47 16:04 19:33 APTT (22.0-30.0) sec Sodium (137-145) mmol/L BUN (7-17) mg/dL Creatinine (0.52-1.04) mg/dL Glucose (74-99) mg/dL POC Glucose (mg/dL) 285 H 258 H 225 H (70-110) mg/dL 11/04/22 11/04/22 11/04/22 Range/Units 06:08 08:03 08:03 APTT 37.4 H (22.0-30.0) sec Sodium 135 L (137-145) mmol/L BUN 40 H (7-17) mg/dL Creatinine 1.41 H (0.52-1.04) mg/dL Glucose 266 H (74-99) mg/dL POC Glucose (mg/dL) 227 H (70-110) mg/dL 11/04/22 Range/Units 11:33 APTT (22.0-30.0) sec Sodium (137-145) mmol/L BUN (7-17) mg/dL Creatinine (0.52-1.04) mg/dL Glucose (74-99) mg/dL POC Glucose (mg/dL) 253 H (70-110) mg/dL Assessment and Plan Assessment: Assessment and plan * Acute on chronic congestive heart failure with systolic dysfunction ejection fraction 20% * Non-ST elevated MN * Diabetes mellitus type 2 with hyperglycemia * History of coronary artery disease with previous PCI * Valvular heart disease with moderate mitral and tricuspid regurgitation * Hypertension * Hyperlipidemia * Morbid obesity * Chronic kidney disease IIIa * In regards to congestive heart failure continue patient on Lasix, continue to monitor intake and output * In regards to coronary artery disease and non-ST elevated MN continue IV heparin, aspirin, Lipitor, Coreg, Plavix, interest to * In regards to diabetes mellitus continue patient on Lantus and high-dose correctional scale insulin. Patient is on 75/25 Humalog at home. Monitor for hypoglycemia * In regards to chronic kidney disease continue to monitor creatinine while on diuresis
[2022-11-04] MEDS: SPIRONOLACTONE 25 MG TAB PO SCH (14:46)
[2022-11-04 16:32] LABS: Glucose,Whole Blood 278 mg/dL (70-110)
[2022-11-04 19:32] LABS: Glucose,Whole Blood 62 mg/dL (70-110)
[2022-11-04 19:51] LABS: Glucose,Whole Blood 96 mg/dL (70-110)
[2022-11-04 20:47] LABS: Glucose,Whole Blood 96 mg/dL (70-110)
[2022-11-05] MEDS: HEPARIN SOD,PORK IN 0.45% NACL 25,000 UNIT in 0.45% NACL 1 250ML.BAG IV SCH (01:31)
[2022-11-05 06:15] LABS: Glucose,Whole Blood 173 mg/dL (70-110)
[2022-11-05] MEDS: INSULIN ASPART (NovoLOG) 100 UNIT/ML VIAL SQ SCH ×4 (06:21→20:51)
[2022-11-05] MEDS: NITROGLYCERIN SL TABS 0.4 MG TAB SUBLINGUAL PRN (07:07)
[2022-11-05 08:08] LABS: HCT 38.2 % (34.0-46.0); HGB 12.6 gm/dL (11.4-16.0); MCH 30.9 pg (25.0-35.0); MCHC 33.1 g/dL (31.0-37.0); MCV 93.3 fL (80.0-100.0); Mean Platelet Volume 11.4; RBC 4.09 m/uL (3.80-5.40); RDW 13.6 % (11.5-15.5); WBC 7.5 k/uL (3.8-10.6)
[2022-11-05] MEDS: ATORVASTATIN 80 MG TAB PO SCH (08:49)
[2022-11-05] MEDS: ISOSORBIDE MONONITRATE ER 60 MG TAB.ER.24H PO SCH (08:49)
[2022-11-05] MEDS: ASCORBIC ACID 500 MG TAB PO SCH (08:49)
[2022-11-05] MEDS: carvediloL 3.125 MG TAB PO SCH ×2 (08:49→22:27)
[2022-11-05] MEDS: ASPIRIN 81 MG PO SCH (08:49)
[2022-11-05] MEDS: CLOPIDOGREL 75 MG TAB PO SCH (08:49)
[2022-11-05] MEDS: CHOLECALCIFEROL 25 MCG (1000 IU) TABLET PO SCH (08:49)
[2022-11-05] MEDS: SACUBITRIL/VALSARTAN 24 MG-26 MG TABLET PO SCH (08:49)
[2022-11-05] MEDS ORDERED: ASPIRIN 325 MG TAB PO STA (10:00)
[2022-11-05] MEDS ORDERED: ATORVASTATIN 80 MG TAB PO STA (10:00)
[2022-11-05] MEDS ORDERED: ALPRAZolam 0.5 MG TAB PO PRN (10:00)
[2022-11-05 10:09] LABS: Platelet Count 164 k/uL (150-450)
[2022-11-05 10:37] LABS: African American GFR (CKD) 36 (>60 ml/min/1.73 sqM); Anion Gap 10 mmol/L; Blood Urea Nitrogen 48 mg/dL (7-17); Carbon Dioxide 24 mmol/L (22-30); Chloride 101 mmol/L (98-107); Glucose 164 mg/dL (74-99); Non-African American GFR(CKD) 31 (>60 ml/min/1.73 sqM); Sodium 135 mmol/L (137-145)
[2022-11-05] MEDS ORDERED: ASPIRIN 81 MG PO STA (10:38)
[2022-11-05] MEDS: FUROSEMIDE 10 MG/ML 4 ML VIAL IV SCH ×2 (10:39→15:34)
[2022-11-05 10:46] LABS: Potassium 4.6 mmol/L (3.5-5.1)
[2022-11-05] MEDS ORDERED: HEPARIN SODIUM 1,000 UN/ML (10ML VL) ONE (10:49)
[2022-11-05] MEDS ORDERED: fentaNYL (PF) 50 MCG/ML 2 ML AMP ONE (10:49)
[2022-11-05] MEDS ORDERED: VERAPAMIL 2.5 MG/ML 2 ML AMP ONE (10:49)
[2022-11-05] MEDS: SODIUM CHLORIDE 0.9% 1,000 ML in EMPTY BAG 1 BAG IV SCH ×2 (10:51→17:33)
[2022-11-05] MEDS ORDERED: IV FLUID CONTINUATION 850 ML IV ONE (10:58)
[2022-11-05 11:14] LABS: C Reactive Protein 3.5 mg/dL (<1.0)
[2022-11-05] MEDS ORDERED: fentaNYL (PF) 50 MCG/ML 2 ML AMP IVP ONE (11:35)
[2022-11-05] MEDS ORDERED: LIDOCAINE 1% INJ 10MG/ML (5 ML VIAL-PF) SQ ONE (11:36)
[2022-11-05] MEDS ORDERED: LIDOCAINE 1% INJ 10MG/ML (20 ML MDV) ONE ×2 (11:44→12:35)
[2022-11-05] MEDS ORDERED: LIDOCAINE 1% INJ 10MG/ML (20 ML MDV) SQ ONE (11:52)
[2022-11-05] MEDS ORDERED: NOREPINEPHRINE 4 MG in SODIUM CHLORIDE 0.9% 250 ML IV ONE (12:07)
[2022-11-05] MEDS ORDERED: FUROSEMIDE 10 MG/ML 4 ML VIAL ONE (12:15)
[2022-11-05] MEDS ORDERED: FUROSEMIDE 10 MG/ML 4 ML VIAL IV ONE (12:17)
[2022-11-05] MEDS: HEPARIN SODIUM 1,000 UN/ML (10ML VL) IVP ONE ×3 (13:03→13:28)
[2022-11-05 13:16] LABS: O2 Sat Blood Gas 58.3 %
[2022-11-05 13:19] LABS: O2 Sat Blood Gas 67.4 %
--- NOTE | 2022-11-05 13:19 | CC ---
CARDIAC CATHETERIZATION REPORT INDICATION: Acute dyd-SW-ujryeta elevation DE and acute exacerbation of chronic systolic heart failure. PROCEDURE NOTE: After obtaining informed consent, left heart catheterization and coronary angiogram were performed via the right femoral artery using standard Yamini catheters. The patient was hypotensive and had to be started on Levophed. A femoral angiogram was performed and entry into the common femoral arteries slightly above the bifurcation. The patient received moderate conscious sedation. Total sedation time was 40 minutes. I initially attempted right radial artery access and was unsuccessful, hence proceeded to obtain right femoral arterial access using modified Seldinger technique. A 6-[place] sheath was placed, and catheter and wire were floated into the ascending aorta under fluoroscopic guidance. Upon obtaining hemodynamics in the central aorta, her pressures were around 70 mmHg. Due to this, I started her on Levophed to first make her more stable hemodynamically and then proceeded with a cardiac cath. The patient received 40 mg of IV Lasix. She was initially on 20 mcg of Levophed and subsequently was dropped out to 15 mcg. The patient is critically ill and is in cardiogenic shock. FINDINGS: 1. Hemodynamics: Left ventricular end-diastolic pressure is 35 to 40 mm. There is no significant gradient across the aortic valve. 2. Left ventriculogram: Not performed. 3. Angiographic data: Left main coronary artery appears calcified. There is a 50% distal left main stenosis. It divides into circumflex coronary artery and left anterior descending coronary artery. There is a focal area of 80% to 90% stenosis involving mid LAD. Circumflex coronary artery shows a 90% ostial stenosis that extends into the left main coronary artery. A large caliber OM branch that was previously stented shows a 90% in-stent restenosis. There are collaterals from the left coronary artery to the distal right coronary artery. It was occluded on a previous cardiac cath and to conserve IV dye, I did not do a right coronary angiogram on this study. CONCLUSIONS: 1. Cardiogenic shock with severe hypotension, started on Levophed. 2. Elevated left ventricular end-diastolic pressures. 3. Severe three-vessel coronary artery disease with a chronically occluded right coronary artery, distal left main stenosis, ostial circumflex coronary artery disease and stenosis involving the OM branch and mid LAD. PLAN: I am going to have Dr. Osborne, the on-call landfill attendant, review the angiographic data and will come and do an Impella device and stabilize the patient by providing circulatory support. Once she is stable, bring her back and attempt angioplasty of circ and distal left main and the LAD. MMODL / IJN: [id number] /
[2022-11-05 13:20] LABS: O2 Sat Blood Gas 96.9 %
[2022-11-05] MEDS ORDERED: IOPAMIDOL-370 100ML BTL INJ ONE (13:34)
[2022-11-05] MEDS ORDERED: HEPARIN SODIUM 1,000 UN/ML (10ML VL) IV PRN (14:32)
--- NOTE | 2022-11-05 14:32 | P.PCN ---
Description of Procedure: PROCEDURES PERFORMED: Right heart catheterization, ultrasound guided arterial access, Placement of Impella CP INDICATION: Cardiogenic shock, CAD, non-STEMI CONSENT:I have discussed the risks, benefits and alternative therapies for the above-mentioned procedure and for both sedation/analgesia as well as necessary blood product administration, if indicated, as they pertain to this patient. The patient has indicated understanding and acceptance of the risks and procedures discussed. PROCEDURE: After the risks, benefits and alternatives of the above mentioned procedure explained in detail with the patient, informed consent was obtained. Patient had been taken to the catheterization lab and prepped and draped in usual fashion. Diagnostic left heart catheterization had been performed from right femoral approach with a 6-Macanese sheath in the right femoral artery. Ultrasound guidance was used to assess for femoral access. 1% lidocaine was used to anesthetize the right femoral area. A 8-Macanese sheath was placed in the right femoral vein using modified Seldinger technique and ultrasound guidance. An 8-[place] catheter was advanced in the right atrium, right ventricle, pulmonary artery and pulmonary A wedge positions and pressure and oxygen saturation measurements were obtained. Given extremely elevated LVEDP in the 40s, prior pulmonary edema with intervention in May and multivessel disease with decision was made to unload patient with Impella CP. Arteriotomy was noted to be in the distal common femoral artery on both angiogram as well as ultrasound and therefore decision made to place a 14-Macanese sheath. 2 preclose Percloses were placed at the 10 and 2 oclock position. Heparin was given. Over a stiff 0.035 Impella wire the 14-Macanese sheath was placed. Next a pigtail catheter was placed and then a 0.018 wire was used to exchange for the Impella CP. The Impella CP was turned on with good output at 3.5 L/min. The patient tolerated the procedure well. Patient was transported back to the post catheterization holding area in stable condition. Conscious Sedation: Patient was monitored under the direct supervision of myself for conscious sedation using Versed and fentanyl for a total duration of 59 minutes HEMODYNAMICS: Aorta: 116/82 LV (from diagnostic procedure): 114/20, LVEDP 46 PCWP: 42 PA: 74/41 RV: 71/10 RA: 21 Right atrial oxygen saturation: 67% PA oxygen saturation: 58% Femoral artery oxygen saturation: 97% Cardiac output by Rafael: 4.27 L/min Cardiac index by Rafael: 1.89 L/min/m2 FINAL IMPRESSION: 1. S/p Impella CP placement 2. Extremely elevated right and left sided filling pressures 3. Decreased cardiac outpt 4. Step up from RA to PA, rule out shunt vs variance in measurements PLAN: 1. Continue Impella CP for optimization of volume status before any intervention 2. Multiple interventions with restenosis of stents in the past. Consider CABG and if not a good CABG candidate, consider Impella protected PCI left main, LAD, ostial circumflex and possible [employer]LE [employer] RCA.
[2022-11-05 14:59] LABS: Glucose,Whole Blood 276 mg/dL (70-110)
--- NOTE | 2022-11-05 15:11 | P.PN ---
Subjective Progress Note Date: 11/05/22 77 years old female with past medical history of History of coronary artery disease status post stenting, diabetes mellitus, hypertension, hyperlipidemia Patient presents because of worsening dyspnea over one week with possible elements of orthopnea. Also patient reports worsening of leg swelling. Occas ional coughing. Occasional chest pain when lying down, last episode was 2 days ago currently patient denies any chest pain or discomfort and epigastric pain or neck pain. She does not look in respiratory distress when she talks easily and she does not use accessory respiratory muscles. She denies any urinary GI or neurological specific symptoms to me. She denies smoking alcohol or illicit drugs. Her PCP is Dr. Miller and her paramedic supervisor is Dr. Krause Patient is mildly tachycardic and tachypneic labs reviewed, CBC, INR within the reference range. Creatinine is elevated 1.4, and 1.3 which is at or close to baseline of 1.2-1.4. mildly elevated lactic acid came back to normal. Troponin 1.5, 2.2 Chest x-ray: Cardiomegaly with pulmonary vascular congestion and bilateral pleural effusion. Possible congestive heart failure Echocardiogram from : Ejection fraction of 35-40% with dilated left ventricle with severe LV dysfunction and 2+ mitral regurgitation 11/04: Patient seen and evaluated bedside, home medications reviewed. Started on high-dose correctional insulin as well as Lantus. Aldactone discontinued. Continue patient on IV Lasix, continue IV heparin planned for cardiac cat heterization 11/05: Patient seen and evaluated bedside. Patient is status post cardiac catheterization transferred to medical ICU. Status post impela placement, patient transferred to medical ICU. Cardiology and MICU team consulted and notified about new consult. Patient evaluated alert and oriented times 3.Care plan discussed with family denies of chest pain Objective - Vital Signs Vital signs: Vital Signs Temp 97.7 F 11/05/22 08:00 Pulse 108 H 11/05/22 08:00 Resp 16 11/05/22 08:00 BP 112/72 11/05/22 08:00 Pulse Ox 96 11/05/22 08:00 FiO2 21 11/05/22 07:55 Intake & Output 11/04/22 11/05/22 11/05/22 18:59 06:59 18:59 Intake Total 486.296 121.704 277.582 Output Total 550 700 Balance -63.704 -578.296 277.582 Weight 134.4 kg 135.4 kg Intake: Intake, IV Titration 246.296 3.704 157.582 Amount Heparin Sod,Pork in 0.45% 246.296 3.704 157.582 NaCl 25,000 unit In 0.45 % NaCl 1 250ml.bag @ 7. 874 UNITS/KG/HR 10 mls/hr IV .Q24H [facility] Rx#: [id number] Oral 240 118 120 Output: Urine 550 700 Other: Voiding Method Toilet Toilet Toilet Urinal - Exam PHYSICAL EXAMINATION: GENERAL: The patient is alert and oriented x3, . Well developed, well nourished. Obese HEENT: Pupils are round and equally reacting to light. EOMI. CARDIOVASCULAR: S1 and S2 present. impella in place PULMONARY: Chest is clear to auscultation, no wheezing or crackles. ABDOMEN: Soft, nontender, nondistended, normoactive bowel sounds. No palpable organomegaly. MUSCULOSKELETAL: No joint swelling or deformity. EXTREMITIES: Bilateral lower extremity edema NEUROLOGICAL: Gross neurological examination did not reveal any focal deficits. - Labs CBC & Chem 7: 11/05/22 07:50 11/05/22 07:50 Labs: Abnormal Lab Results - Last 24 Hours (Table) 11/04/22 11/04/22 11/05/22 Range/Units 16:31 19:28 00:32 APTT 40.8 H (22.0-30.0) sec Sodium (137-145) mmol/L BUN (7-17) mg/dL Creatinine (0.52-1.04) mg/dL Glucose (74-99) mg/dL POC Glucose (mg/dL) 278 H 62 L (70-110) mg/dL C-Reactive Protein (<1.0) mg/dL 11/05/22 11/05/22 11/05/22 Range/Units 06:11 07:50 07:50 APTT 73.1 H (22.0-30.0) sec Sodium 135 L (137-145) mmol/L BUN 48 H (7-17) mg/dL Creatinine 1.59 H (0.52-1.04) mg/dL Glucose 164 H (74-99) mg/dL POC Glucose (mg/dL) 173 H (70-110) mg/dL C-Reactive Protein 3.5 H (<1.0) mg/dL Assessment and Plan Assessment: Assessment and plan * Acute on chronic congestive heart failure with systolic dysfunction ejection fraction 20% * Non-ST elevated [place] * Multivessel coronary artery disease with cardiogenic shock * Diabetes mellitus type 2 with hyperglycemia * History of coronary artery disease with previous PCI * Valvular heart disease with moderate mitral and tricuspid regurgitation * Hypertension * Hyperlipidemia * Morbid obesity * Chronic kidney disease IIIa * In regards to congestive heart failure continue patient on Lasix, continue to monitor intake and output, status post cardiac cath, transferred to medical ICU for close monitoring * In regards to coronary artery disease and non-ST elevated [place] continue IV heparin, aspirin, Lipitor, Coreg, Plavix,, orders to be adjusted per medical ICU team and cardiology * In regards to diabetes mellitus continue patient on Lantus and high-dose elan ectional scale insulin. Patient is on 75/25 Humalog at home. Monitor for hypoglycemia * In regards to chronic kidney disease continue to monitor creatinine while on diuresis * Prognosis remains guarded plan discussed with family in cardiac lounge
[2022-11-05] MEDS: SODIUM BICARB (1 MEQ/ML) 12.5 ML in DEXTROSE 5% IN WATER 500 ML IV SCH ×2 (15:34)
[2022-11-05 15:57] LABS: HGB 12.5 gm/dL (11.4-16.0); MCH 31.9 pg (25.0-35.0); MCHC 33.9 g/dL (31.0-37.0); MCV 94.1 fL (80.0-100.0); Mean Platelet Volume 11.6; Platelet Count 144 k/uL (150-450); RBC 3.93 m/uL (3.80-5.40); RDW 13.5 % (11.5-15.5); WBC 8.1 k/uL (3.8-10.6)
[2022-11-05 16:10] LABS: INR 1.1 (<1.2); Prothrombin Time 11.2 sec (9.0-12.0)
[2022-11-05 16:22] LABS: African American GFR (CKD) 36 (>60 ml/min/1.73 sqM); Anion Gap 14 mmol/L; Blood Urea Nitrogen 46 mg/dL (7-17); Calcium 8.7 mg/dL (8.4-10.2); Carbon Dioxide 20 mmol/L (22-30); Chloride 99 mmol/L (98-107); Glucose 266 mg/dL (74-99); Magnesium 2.1 mg/dL (1.6-2.3); Non-African American GFR(CKD) 31 (>60 ml/min/1.73 sqM); Sodium 133 mmol/L (137-145)
[2022-11-05 16:26] LABS: Lymphocytes # (M) 1.13 k/uL (1.0-4.8); Monocytes # (M) 0.32 k/uL (0-1.0); Neutrophils # (M) 6.64 k/uL (1.3-7.7); Neutrophils % (M) 82 %; Nucleated Red Blood Cells 0 /100 WBC (0-0); Total Cells Counted 100
[2022-11-05 16:27] LABS: Large Platelets Present; RBC Morphology Normal
[2022-11-05 16:33] LABS: Partial Thromboplastin Time 165.9 sec (22.0-30.0)
[2022-11-05 16:49] LABS: Glucose,Whole Blood 273 mg/dL (70-110)
[2022-11-05] MEDS: INSULIN DETEMIR (LEVEMIR) 100 UNIT/ML SYR SQ SCH (17:54)
[2022-11-05 19:58] LABS: Glucose,Whole Blood 272 mg/dL (70-110)
[2022-11-05 22:30] LABS: Basophils % (A) 0 %; Eosinophils % (A) 0 %; HCT 33.3 % (34.0-46.0); HGB 11.4 gm/dL (11.4-16.0); Lymphocytes # (A) 0.8 k/uL (1.0-4.8); Lymphocytes % (A) 10 %; MCH 31.7 pg (25.0-35.0); MCHC 34.2 g/dL (31.0-37.0); MCV 92.6 fL (80.0-100.0); Mean Platelet Volume 11.5; Monocytes # (A) 0.5 k/uL (0-1.0); Monocytes % (A) 6 %; Neutrophils # (A) 6.6 k/uL (1.3-7.7); Neutrophils % (A) 83 %; Platelet Count 142 k/uL (150-450); RDW 13.8 % (11.5-15.5); WBC 7.9 k/uL (3.8-10.6)
[2022-11-05 22:32] LABS: Partial Thromboplastin Time 46.3 sec (22.0-30.0)
[2022-11-05 22:33] LABS: ALT 20 U/L (4-34); AST 45 U/L (14-36); African American GFR (CKD) 42 (>60 ml/min/1.73 sqM); Albumin 2.7 g/dL (3.5-5.0); Alkaline Phosphatase 68 U/L (38-126); Anion Gap 5 mmol/L; Blood Urea Nitrogen 44 mg/dL (7-17); Calcium 8.4 mg/dL (8.4-10.2); Carbon Dioxide 27 mmol/L (22-30); Chloride 101 mmol/L (98-107); Glucose 185 mg/dL (74-99); Non-African American GFR(CKD) 36 (>60 ml/min/1.73 sqM); Potassium 3.5 mmol/L (3.5-5.1); Sodium 133 mmol/L (137-145); Total Bilirubin 1.3 mg/dL (0.2-1.3); Total Protein 5.4 g/dL (6.3-8.2)
[2022-11-05 22:42] LABS: LDH 462 U/L (120-246)
[2022-11-05] MEDS ORDERED: Potassium Replacement Protocol 1 EACH MISC MISCELLANE PRN (22:50)
[2022-11-05] MEDS: NOREPINEPHRINE 4 MG in SODIUM CHLORIDE 0.9% 250 ML IV SCH (23:22)
[2022-11-05] MEDS: POTASSIUM BICARBONATE/CIT AC 20 MEQ TABLET.EFF NG-TUBE SCH (23:30)
[2022-11-06] MEDS: POTASSIUM BICARBONATE/CIT AC 20 MEQ TABLET.EFF NG-TUBE SCH (00:43)
[2022-11-06] MEDS: FUROSEMIDE 10 MG/ML 4 ML VIAL IV SCH ×3 (00:43→16:12)
[2022-11-06] MEDS: SODIUM CHLORIDE 0.9% 1,000 ML in EMPTY BAG 1 BAG IV SCH ×4 (00:49→23:13)
--- NOTE | 2022-11-06 01:25 | P.CNPUL ---
History of Present Illness Consult date: 11/06/22 Requesting physician: Otoniel Márquez Reason for consult: other (NSTEMI, Cardiogenic shock, ICU management) Chief complaint: Intermittent shortness of breath and lower extremity swelling History of present illness: I am seeing this patient in new consultation today 11/06/2022 in the intensive care unit after the patient presented with non-ST elevation IN and cardiogenic shock requiring Impella insertion. Patient is a 77-year-old white female with past medical history significant for multivessel coronary artery disease with multiple previous coronary stents. Most recent coronary stenting done in May, to the first obtuse marginal branch of the circumflex and main circumflex coronary artery. Patient also has significant history of hypertension, hyperlipidemia, diabetes mellitus type 2, obesity, and chronic kidney disease. Her primary care provider is a nurse practitioner, Mickie Saenz, out of Dr. Miller office in [place]. Patient presented back on October with complaints of intermittent shortness of breath and chest pressure that started on the preceding Sunday or Sunday. This was accompanied with increased lower extremity swelling. She does have chronic lymphedema. Troponins had been trending up at 0.98, 1.59, and 2.2. ECG on arrival showed sinus tachycardia with possible septal-lateral myocardial infarction of indeterminate age, and right axis deviation. She was diagnosed with a non-ST elevation IN. She was originally admitted to the cardiac stepdown unit. Echocardiogram demonstrated a reduced ejection fraction of 20-25%, moderate mitral regurgitation, and moderate tricuspid regurgitation. She was taken for cardiac catheterization yesterday, which demonstrated the patient's multivessel coronary artery disease including 80-90% stenosis involving the mid LAD, 50% stenosis of the distal left main, 90% stenosis of the circumflex, and 90% restenosis of the previously stented obtuse marginal branch, there was chronic RCA stenosis with collaterals. Patient developed shock like symptoms, had elevated left ventricular end-diastolic pressure of 35-40 mmHg, and a Impella assist device was inserted. She was subsequently transferred to the intensive care unit. At this point, we were consulted yesterday afternoon. Patient is currently lying supine in bed, on 2 L/m nasal cannula, in no acute distress. Most recent chest x-ray from October was consistent with congestive heart failure with cardiomegaly, pulmonary vascular congestion, and bilateral pleural effusions. She is being diuresed with Lasix 40 mg every 8 hours. The Impella is inserted through the right groin. Flow is at P9. There is a pulmonary artery catheter with cardiac output/cardiac index reading 5.5/2.4 respectively. Pulmonary artery pressures are 44/18. Blood pressure is hypotensive at 75/52 mmHg. Heart rhythm appears normal sinus around 70 bpm on bedside monitor. Cardiology has just started the patient on norepinephrine, which was initiated at 0.05 mcg/kg/m. Heparin is infusing per Impella protocol. PTT is therapeutic. Fibrinogen level 374 There was small amount of oozing from the Impella insertion site. No hematoma formation. Pulses were found bilaterally with Doppler. Most recent CBC from yesterday shows a WBC count 7.9, hemoglobin 11.4, hematocrit 33.3, platelets 142. BMP from yesterday shows sodium 133, potassium 3.5, chloride 101, serum bicarb 27, BUN 44, creatinine improved to 1.42, glucose 185. Potassium is being replaced per protocol. Currently, the plan is for evaluation by cardiothoracic services for possible surgical revascularization. Impella is going to remain in place for now. Her prognosis is currently guarded related to above-mentioned comorbidities. She will be monitored in the intensive care unit. Review of Systems REVIEW OF SYSTEMS: CONSTITUTIONAL: Denies any recent significant weight loss or weight gain. EYES: Denies change in vision. EARS, NOSE, MOUTH, THROAT: Denies headaches, denies sore throat. CARDIOVASCULAR: Denies chest pain, palpitations or syncopal episodes. Admits chest pressure, orthopnea, and increased lower extremity swelling as described in HPI. RESPIRATORY: Denies cough, congestion or hemoptysis. Admits exertional dyspnea GASTROINTESTINAL: Denies change in appetite, abdominal pain, nausea and vomiting, or diarrhea GENITOURINARY: Denies hematuria, denies infections. MUSKULOSKELETAL: Denies pain, denies swelling. INTEGUMENTARY: Denies rash, denies eczema. NEUROLOGICAL: Denies recent memory loss, no recent seizure activity. PSYCHIATRIC: Denies anxiety, denies depression. HEMATOLOGIC/LYMPHATIC: Denies anemia, denies enlarged lymph node Past Medical History Past Medical History: Coronary Artery Disease (CAD), Cancer, Chest Pain / Angina, Diabetes Mellitus, Hyperlipidemia, Hypertension, Myocardial Infarction (IN), Pneumonia Additional Past Medical History / Comment(s): 6 stents placed and 2 heart attacks; uterine cancer 2011 Last Myocardial Infarction Date:: 2018 History of Any Multi-Drug Resistant Organisms: None Reported Past Surgical History: Cholecystectomy, Heart Catheterization With Stent, Hysterectomy, Orthopedic Surgery Additional Past Surgical History / Comment(s): right knee replacement-2017. D&C x 2. History of cardiac stent placement x5. June 2018. last cardiac stent placement. Left leg vein stripping Past Anesthesia/Blood Transfusion Reactions: No Reported Reaction Date of Last Stent Placement:: 2018 Past Psychological History: No Psychological Hx Reported Smoking Status: Never smoker Past Alcohol Use History: None Reported Past Drug Use History: None Reported - Past Family History Mother Family Medical History: CVA/TIA, Myocardial Infarction (IN) Additional Family Medical History / Comment(s): at 94 years old Father Family Medical History: CVA/TIA Additional Family Medical History / Comment(s): Dietd at 98 years old Brother(s) Family Medical History: Cancer, Coronary Artery Disease (CAD) Additional Family Medical History / Comment(s): Heart disease diagnosed in his 40s Son(s) Family Medical History: No Reported History Daughter(s) Family Medical History: No Reported History Medications and Allergies Home Medications Medication Instructions Recorded Confirmed Type Clopidogrel Bisulfate [Plavix] 75 mg PO DAILY 06/20/18 11/02/22 History Nitroglycerin Sl Tabs [Nitrostat] 0.4 mg SUBLINGUAL Q5M PRN #25 tab 06/22/18 11/02/22 Rx Insulin Lispro Protamin/Lispro 1 - 55 unit SQ BID 03/21/22 11/02/22 History [humaLOG MIX 75-25 Kwikpen] Ascorbic Acid [Vitamin C] 1,000 mg PO DAILY 03/22/22 11/02/22 History Ergocalciferol [Vitamin D2 (1250 1,250 mcg PO MO 03/22/22 11/02/22 History Mcg = 67848 Iu)] Magnesium Oxide [Magnesium] 500 mg PO DAILY 03/22/22 11/02/22 History Spironolactone [Aldactone] 12.5 mg PO DAILY #45 tablet 03/22/22 11/02/22 Rx Atorvastatin [Lipitor] 80 mg PO DAILY #30 tab 06/02/22 11/02/22 Rx Cholecalciferol [Vitamin D3 (25 25 mcg PO DAILY 11/02/22 11/02/22 History Mcg = 1000 Iu)] Furosemide [Lasix] 40 mg PO DAILY 11/02/22 11/02/22 History Isosorbide Mononitrate ER [Imdur] 60 mg PO DAILY 11/02/22 11/02/22 History Sacubitril/Valsartan [Entresto 24 1 tab PO DAILY 11/02/22 11/02/22 History mg-26 mg Tablet] Vitamin B Complex 1 cap PO DAILY 11/02/22 11/02/22 History carvediloL [Coreg] 3.125 mg PO DIRECTED 11/02/22 11/02/22 History Allergies Allergy/AdvReac Type Severity Reaction Status Date / Time Penicillins Allergy Rash/Hives/ Verified 11/02/22 18:04 Blistering Physical Exam Vitals: Vital Signs Temp Pulse Pulse Resp BP BP Pulse Ox 11/05/22 23:00 76 24 104/57 94 L 11/05/22 22:00 81 25 H 100/56 93 L 11/05/22 21:00 80 24 112/65 95 11/05/22 20:00 98.0 F 82 24 111/62 90 L 11/05/22 19:00 87 22 107/64 92 L 11/05/22 18:00 90 23 117/64 92 L 11/05/22 17:00 94 21 114/81 96 11/05/22 16:00 96 16 94 L 11/05/22 15:26 95 11/05/22 15:00 98.2 F 105 H 7 L 109/65 97 11/05/22 08:00 97.7 F 108 H 16 112/72 96 11/05/22 07:55 11/05/22 07:11 105/54 11/05/22 07:09 109/53 11/05/22 06:58 114 H 115/57 98 11/05/22 04:00 97.9 F 95 14 103/49 96 FiO2 11/05/22 23:00 11/05/22 22:00 11/05/22 21:00 11/05/22 20:00 11/05/22 19:00 11/05/22 18:00 11/05/22 17:00 11/05/22 16:00 11/05/22 15:26 11/05/22 15:00 11/05/22 08:00 11/05/22 07:55 21 11/05/22 07:11 11/05/22 07:09 11/05/22 06:58 11/05/22 04:00 Intake and Output 11/05/22 11/05/22 11/06/22 14:59 22:59 06:59 Intake Total 640.982 354.667 260.15 Output Total 2280 115 Balance 640.982 -1925.333 145.15 Intake: IV 363.4 163 58 0.9 @ KVO 30 20 Sodium Bicarb (1 Meq/ml) 133 38 12.5 ml In Dextrose 5% in Water 500 ml @ Per Protocol IV DIRECTED [facility] Rx#:[id number] Intake, IV Titration 157.582 41.667 2.15 Amount Heparin Sod,Pork in 0.45% 157.582 41.667 NaCl 25,000 unit In 0.45 % NaCl 1 250ml.bag @ 7. 874 UNITS/KG/HR 10 mls/hr IV .Q24H [facility] Rx#: [id number] Norepinephrine 4 mg In 2.15 Sodium Chloride 0.9% 250 ml @ 0.03 MCG/KG/MIN 15. 476 mls/hr IV .[id number] [facility] Rx#:[id number] Oral 120 150 200 Output: Urine 2280 115 Other: Voiding Method Toilet Indwelling Catheter ABP, PAP, CO, CI - Last 8 Hours Arterial Blood Pressure 75/52 Arterial Blood Pressure 78/52 Arterial Blood Pressure 86/57 Arterial Blood Pressure 86/56 Arterial Blood Pressure 89/55 Arterial Blood Pressure 94/52 Arterial Blood Pressure 108/69 Pulmonary Artery Pressure 41/9 Pulmonary Artery Pressure 40/10 Pulmonary Artery Pressure 41/7 Pulmonary Artery Pressure 42/18 Pulmonary Artery Pressure 42/17 Pulmonary Artery Pressure 44/17 Pulmonary Artery Pressure 49/23 Cardiac Output 5.5 Cardiac Output 6.7 Cardiac Output 6.7 Cardiac Output 6.6 Cardiac Index 2.4 Cardiac Index 3 Cardiac Index 3.0 Cardiac Index 2.9 GENERAL EXAM: Alert, 77-year-old obese white female , supine, comfortable in no apparent distress. HEAD: Normocephalic and atraumatic EYES: Normal reaction of pupils, equal size. NOSE: Clear with pink turbinates. THROAT: No erythema or exudates. NECK: No masses. Positive mild JVD CHEST: No chest wall deformity. LUNGS: Equal air entry with bibasilar inspiratory crackles. On 2 L/m nasal cannula. No conversational dyspnea or accessory muscle use.. CVS: S1 and S2 normal with no audible murmur, regular rhythm. No extra heart sounds ABDOMEN: Obese abdomen, no hepatosplenomegaly, active bowel sounds, no guarding or rigidity. SPINE: No scoliosis or deformity SKIN: No rashes, bilateral lower extremity chronic venous changes. CENTRAL NERVOUS SYSTEM: No focal deficits, tone is normal in all 4 extremities. EXTREMITIES: There is bilateral lower extremity 1-2+ pitting edema. No clubbing, or cyanosis. Bilateral dorsal pedis pulses found with Doppler. Feet are warm. Movement and sensation intact. Impella LVAD inserted through right groin. No hematoma, there is a small amount of oozing from the insertion site. Results - Laboratory Findings CBC and BMP: 11/05/22 21:56 11/05/22 21:56 PT/INR, D-dimer PT 11.2 sec (9.0-12.0) 11/05/22 15:45 INR 1.1 (<1.2) 11/05/22 15:45 Abnormal lab findings: Abnormal Labs 11/02/22 11/02/22 11/02/22 18:36 18:36 18:36 RBC Hct Plt Count Neutrophils # 8.9 H Lymphocytes # APTT Sodium Carbon Dioxide BUN 31 H Creatinine 1.40 H Glucose 164 H POC Glucose (mg/dL) Hemoglobin A1c Plasma Lactic Acid Ángel 2.9 H* Total Bilirubin 1.5 H Unconjugated Bilirubin AST Lactate Dehydrogenase Troponin I C-Reactive Protein Total Protein Albumin 11/02/22 11/02/22 11/02/22 18:36 21:10 21:12 RBC Hct Plt Count Neutrophils # Lymphocytes # APTT Sodium Carbon Dioxide BUN Creatinine Glucose POC Glucose (mg/dL) 161 H Hemoglobin A1c Plasma Lactic Acid Ángel Total Bilirubin Unconjugated Bilirubin AST Lactate Dehydrogenase Troponin I 0.979 H* 1.590 H* C-Reactive Protein Total Protein Albumin 11/02/22 11/03/22 11/03/22 21:12 04:36 04:36 RBC Hct Plt Count Neutrophils # Lymphocytes # APTT Sodium 134 L Carbon Dioxide BUN 35 H Creatinine 1.34 H Glucose 188 H POC Glucose (mg/dL) Hemoglobin A1c Plasma Lactic Acid Ángel 2.7 H* Total Bilirubin 1.5 H Unconjugated Bilirubin 1.5 H AST Lactate Dehydrogenase Troponin I 2.210 H* C-Reactive Protein Total Protein 5.9 L Albumin 3.2 L 11/03/22 11/03/22 11/03/22 07:26 10:57 12:18 RBC Hct Plt Count Neutrophils # Lymphocytes # APTT 52.1 H Sodium Carbon Dioxide BUN Creatinine Glucose POC Glucose (mg/dL) 213 H 222 H Hemoglobin A1c Plasma Lactic Acid Ángel Total Bilirubin Unconjugated Bilirubin AST Lactate Dehydrogenase Troponin I C-Reactive Protein Total Protein Albumin 11/03/22 11/03/22 11/03/22 13:47 16:04 19:33 RBC Hct Plt Count Neutrophils # Lymphocytes # APTT Sodium Carbon Dioxide BUN Creatinine Glucose POC Glucose (mg/dL) 285 H 258 H 225 H Hemoglobin A1c Plasma Lactic Acid Ángel Total Bilirubin Unconjugated Bilirubin AST Lactate Dehydrogenase Troponin I C-Reactive Protein Total Protein Albumin 11/04/22 11/04/22 11/04/22 06:08 08:03 08:03 RBC Hct Plt Count Neutrophils # Lymphocytes # APTT 37.4 H Sodium 135 L Carbon Dioxide BUN 40 H Creatinine 1.41 H Glucose 266 H POC Glucose (mg/dL) 227 H Hemoglobin A1c Plasma Lactic Acid Ángel Total Bilirubin Unconjugated Bilirubin AST Lactate Dehydrogenase Troponin I C-Reactive Protein Total Protein Albumin 11/04/22 11/04/22 11/04/22 11:33 16:31 19:28 RBC Hct Plt Count Neutrophils # Lymphocytes # APTT Sodium Carbon Dioxide BUN Creatinine Glucose POC Glucose (mg/dL) 253 H 278 H 62 L Hemoglobin A1c Plasma Lactic Acid Ángel Total Bilirubin Unconjugated Bilirubin AST Lactate Dehydrogenase Troponin I C-Reactive Protein Total Protein Albumin 11/05/22 11/05/22 11/05/22 00:32 06:11 07:50 RBC Hct Plt Count Neutrophils # Lymphocytes # APTT 40.8 H Sodium Carbon Dioxide BUN Creatinine Glucose POC Glucose (mg/dL) 173 H Hemoglobin A1c 6.6 H Plasma Lactic Acid Ángel Total Bilirubin Unconjugated Bilirubin AST Lactate Dehydrogenase Troponin I C-Reactive Protein Total Protein Albumin 11/05/22 11/05/22 11/05/22 07:50 07:50 14:57 RBC Hct Plt Count Neutrophils # Lymphocytes # APTT 73.1 H Sodium 135 L Carbon Dioxide BUN 48 H Creatinine 1.59 H Glucose 164 H POC Glucose (mg/dL) 276 H Hemoglobin A1c Plasma Lactic Acid Ángel Total Bilirubin Unconjugated Bilirubin AST Lactate Dehydrogenase Troponin I C-Reactive Protein 3.5 H Total Protein Albumin 11/05/22 11/05/22 11/05/22 15:45 15:45 15:45 RBC Hct Plt Count 144 L Neutrophils # Lymphocytes # APTT 165.9 H* Sodium 133 L Carbon Dioxide 20 L BUN 46 H Creatinine 1.60 H Glucose 266 H POC Glucose (mg/dL) Hemoglobin A1c Plasma Lactic Acid Ángel Total Bilirubin Unconjugated Bilirubin AST Lactate Dehydrogenase Troponin I C-Reactive Protein Total Protein Albumin 11/05/22 11/05/22 11/05/22 16:48 19:56 21:56 RBC Hct Plt Count Neutrophils # Lymphocytes # APTT 46.3 H Sodium Carbon Dioxide BUN Creatinine Glucose POC Glucose (mg/dL) 273 H 272 H Hemoglobin A1c Plasma Lactic Acid Ángel Total Bilirubin Unconjugated Bilirubin AST Lactate Dehydrogenase Troponin I C-Reactive Protein Total Protein Albumin 11/05/22 11/05/22 21:56 21:56 RBC 3.60 L Hct 33.3 L Plt Count 142 L Neutrophils # Lymphocytes # 0.8 L APTT Sodium 133 L Carbon Dioxide BUN 44 H Creatinine 1.42 H Glucose 185 H POC Glucose (mg/dL) Hemoglobin A1c Plasma Lactic Acid Ángel Total Bilirubin Unconjugated Bilirubin AST 45 H Lactate Dehydrogenase 462 H Troponin I C-Reactive Protein Total Protein 5.4 L Albumin 2.7 L - Diagnostic Findings Chest x-ray: image reviewed Assessment and Plan Assessment: Non-ST elevation myocardial infarction, status post heart catheterization on 11/05 demonstrating multivessel coronary artery disease. Cardiogenic shock, status post insertion of a Impella catheter on 11/05. Also, requiring low-dose vasopressors in the form of norepinephrine. Acute hypoxemic respiratory failure, currently on 2 L/m nasal cannula, secondary to exacerbation of systolic congestive heart failure. Most recent chest x-ray from October was consistent with congestive heart failure with cardiomegaly, pulmonary vascular congestion, and bilateral pleural effusions. Echocardiogram demonstrated a reduced ejection fraction of 20-25%, moderate mitral regurgitation, and moderate tricuspid regurgitation. Acute on chronic kidney disease, improving History of coronary artery disease with multiple previous PCI and coronary stenting History of hypertension Hyperlipidemia Diabetes mellitus type 2 Chronic kidney disease stage III Morbid obesity, with a BMI of 54.6 kg/m Lifelong nonsmoker Plan: Patient's medications, labs, chest x-ray reviewed Impella left ventricular assist device currently in place, patient has a pulmonary artery catheter. CO/CI are currently adequate. Blood pressure is hypotensive, requiring low-dose norepinephrine infusion. Patient is also being diuresed with Lasix 40 mg 3 times a day, fluid balance over the last 24 hours is -1.7 L Monitor electrolytes, and replace per protocol Impella will remain in place for now. Flow is set at P9. Heparin is infusing per protocol Monitor coagulation profile, including fibrinogen, per protocol. Monitor for signs of bleeding. Patient will be evaluated by cardiothoracic services for potential surgical revascularization. Prognosis is guarded related to above-mentioned comorbidities We will continue to follow and further recommendations are forthcoming I have personally seen and examined the patient, performed the documentation and the assessment and plan as written. Number of minutes spent on the visit:20 Time with Patient: Greater than 30
[2022-11-06 06:15] LABS: HCT 34.9 % (34.0-46.0); HGB 11.8 gm/dL (11.4-16.0); MCH 31.6 pg (25.0-35.0); MCHC 33.8 g/dL (31.0-37.0); MCV 93.4 fL (80.0-100.0); Mean Platelet Volume 11.3; Platelet Count 131 k/uL (150-450); RBC 3.73 m/uL (3.80-5.40); RDW 13.4 % (11.5-15.5); WBC 7.8 k/uL (3.8-10.6)
[2022-11-06 06:24] LABS: African American GFR (CKD) 40 (>60 ml/min/1.73 sqM); Anion Gap 2 mmol/L; Blood Urea Nitrogen 44 mg/dL (7-17); Calcium 8.2 mg/dL (8.4-10.2); Carbon Dioxide 31 mmol/L (22-30); Chloride 102 mmol/L (98-107); Glucose 117 mg/dL (74-99); LDH 669 U/L (120-246); Non-African American GFR(CKD) 34 (>60 ml/min/1.73 sqM); Potassium 4.2 mmol/L (3.5-5.1); Sodium 135 mmol/L (137-145)
[2022-11-06] MEDS ORDERED: HEPARIN SODIUM,PORCINE 10,000 UNIT in SODIUM CHLORIDE 0.9% 1,000 ML IRRIGATION PRN (07:00)
[2022-11-06] MEDS ORDERED: HEPARIN SODIUM,PORCINE (1 ML) 2,500 UNIT in SODIUM CHLORIDE 0.9% 250 ML IRRIGATION PRN (07:00)
[2022-11-06 07:02] LABS: Glucose,Whole Blood 137 mg/dL (70-110)
[2022-11-06] MEDS: HEPARIN SOD,PORK IN 0.45% NACL 25,000 UNIT in 0.45% NACL 1 250ML.BAG IV SCH ×2 (07:10→22:33)
[2022-11-06] MEDS: INSULIN ASPART (NovoLOG) 100 UNIT/ML VIAL SQ SCH ×4 (07:13→21:06)
[2022-11-06 08:03] LABS: Partial Thromboplastin Time 36.1 sec (22.0-30.0)
[2022-11-06] MEDS: INSULIN DETEMIR (LEVEMIR) 100 UNIT/ML SYR SQ SCH ×2 (09:13→21:06)
--- NOTE | 2022-11-06 09:39 | CA ---
Transthoracic Echo Report Name: Drea Sosa Age: 77 Gender: F : 1945 Exam Date: 11/05/2022 16:49 Exam Location: [facility] Ht (in): Wt (lb): Ordering Physician: Bertram Osborne DO ([id number]) Attending/Referring Phys: Skein Spooler Blanca Caal RDCS Procedure CPT: Indications: Placement of Left Ventricular Assist Device Cardiac Hx: 9 stents, limited study Technical Quality: Fair Contrast 1: Total Dose (mL): Contrast 2: Total Dose (mL): MEASUREMENTS (Male / Female) Normal Values FINDINGS Left Ventricle Left ventricular ejection fraction is estimated at 20 %. Assist device in LVOT in place. Severely reduced global left ventricular systolic function. Impella seems to be in a good position Right Ventricle Right Atrium Left Atrium Mitral Valve Severe mitral regurgitation. Aortic Valve Tricuspid Valve Pulmonic Valve Pericardium No pericardial effusion. Aorta CONCLUSIONS Global decrease in contractility ejection fraction less than 20% with Impella in good position. No pericardial effusion Previewed by: Dr. Yolie Foley MD (Electronically Signed) Final Date: 06 November 2022 09:39
[2022-11-06] MEDS: carvediloL 3.125 MG TAB PO SCH ×2 (10:03→21:06)
[2022-11-06] MEDS: CHOLECALCIFEROL 25 MCG (1000 IU) TABLET PO SCH (10:03)
[2022-11-06] MEDS: CLOPIDOGREL 75 MG TAB PO SCH (10:03)
[2022-11-06] MEDS: ATORVASTATIN 80 MG TAB PO SCH (10:03)
[2022-11-06] MEDS: ASPIRIN 81 MG PO SCH (10:04)
[2022-11-06] MEDS: PANTOPRAZOLE 40 MG/10 ML VIAL IVP SCH (10:04)
[2022-11-06] MEDS: ASCORBIC ACID 500 MG TAB PO SCH (10:04)
[2022-11-06] MEDS: ISOSORBIDE MONONITRATE ER 60 MG TAB.ER.24H PO SCH (10:05)
--- NOTE | 2022-11-06 10:05 | P.PN ---
Subjective Progress Note Date: 11/06/22 The patient is a 77-year-old female with multiple comorbid conditions who presented to the hospital with shortness of breath, edema, and intrascapular pain. She was ruled in for non-ST elevated myocardial infarction and exacerbation of chronic systolic heart failure. Coronary angiogram showed severe triple-vessel disease with chronically occluded RCA, 50% left main disease, 80-90% mid LAD stenosis, 90% ostial left circumflex stenosis, and 90% in-stent restenosis of stent in the OM1. learning center coordinator was notified and she underwent Impella placement for cardiogenic shock. Echocardiogram reveals EF at 20-25% with moderate MR and moderate TR. The patient was interviewed and examined resting comfortably in bed. She currently denies any chest pain or chest pressure. She also denies any difficulty breathing. GENERAL: Ill-appearing, obese female. NECK: Supple without JVD or thyromegaly. LUNGS: Breath sounds diminished to auscultation bilaterally. Respiration equal and unlabored. No wheezes, rales or rhonchi. HEART: Regular rate and rhythm without murmurs, rubs or gallops. S1 and S2 heard. EXTREMITIES: Normal range of motion, mild generalized edema. No clubbing or cyanosis. Impella and [place] placement in the right groin TELEMETRY: Sinus rhythm with IVCD LABS: WBC 7.8, hemoglobin 11.8, hematocrit 34.9, platelet 131, sodium 135, potassium 4.2, BUN 44, creatinine 1.47 IMPRESSION: Non-ST elevated myocardial infarction Severe coronary artery disease with prior stenting and in-stent restenosis Cardiogenic shock requiring high-dose pressors and Impella placement Valvular heart disease PLAN: Awaiting surgical consult If patient is deemed too high risk for surgery, consideration for stenting of the left main, LAD, and ostial circumflex with Impella Further recommendations based upon clinical course I am dictating on behalf of Dr Jeronimo Adams's history/physical and as sessment/plan. Objective - Vital Signs Vital signs: Vital Signs Temp 99.5 F 11/06/22 08:00 Pulse 84 11/06/22 09:00 Resp 25 H 11/06/22 09:00 BP 118/66 11/06/22 09:00 Pulse Ox 94 L 11/06/22 09:00 FiO2 21 11/05/22 07:55 Intake & Output 11/05/22 11/06/22 11/06/22 18:59 06:59 18:59 Intake Total 739.649 833.28 183.238 Output Total 1400 1437 312 Balance -660.351 -603.72 -128.762 Weight 139.4 kg Intake: IV 420.4 358 117 0.9 @ KVO 130 60 Sodium Bicarb (1 Meq/ml) 57 228 57 12.5 ml In Dextrose 5% in Water 500 ml @ Per Protocol IV DIRECTED [facility] Rx#:[id number] Intake, IV Titration 199.249 25.28 66.238 Amount Heparin Sod,Pork in 0.45% 199.249 66.238 NaCl 25,000 unit In 0.45 % NaCl 1 250ml.bag @ 7. 874 UNITS/KG/HR 10 mls/hr IV .Q24H [facility] Rx#: [id number] Norepinephrine 4 mg In 25.28 Sodium Chloride 0.9% 250 ml @ 0.03 MCG/KG/MIN 15. 476 mls/hr IV .[id number] [facility] Rx#:[id number] Oral 120 450 Output: Urine 1400 1437 312 Other: Voiding Method Toilet Indwelling Catheter Indwelling Catheter ABP, PAP, CO, CI - Last Documented Arterial Blood Pressure 78/64 Pulmonary Artery Pressure 51/8 Cardiac Output 5.7 Cardiac Index 2.5 - Labs CBC & Chem 7: 11/06/22 05:47 11/06/22 05:47 Labs: Abnormal Lab Results - Last 24 Hours (Table) 11/05/22 11/05/22 11/05/22 Range/Units 07:50 07:50 14:57 RBC (3.80-5.40) m/uL Hct (34.0-46.0) % Plt Count (150-450) k/uL Lymphocytes # (1.0-4.8) k/uL APTT (22.0-30.0) sec Sodium 135 L (137-145) mmol/L Carbon Dioxide (22-30) mmol/L BUN 48 H (7-17) mg/dL Creatinine 1.59 H (0.52-1.04) mg/dL Glucose 164 H (74-99) mg/dL POC Glucose (mg/dL) 276 H (70-110) mg/dL Hemoglobin A1c 6.6 H (<=6.0) % Calcium (8.4-10.2) mg/dL AST (14-36) U/L Lactate Dehydrogenase (120-246) U/L C-Reactive Protein 3.5 H (<1.0) mg/dL Total Protein (6.3-8.2) g/dL Albumin (3.5-5.0) g/dL 11/05/22 11/05/22 11/05/22 Range/Units 15:45 15:45 15:45 RBC (3.80-5.40) m/uL Hct (34.0-46.0) % Plt Count 144 L (150-450) k/uL Lymphocytes # (1.0-4.8) k/uL APTT 165.9 H* (22.0-30.0) sec Sodium 133 L (137-145) mmol/L Carbon Dioxide 20 L (22-30) mmol/L BUN 46 H (7-17) mg/dL Creatinine 1.60 H (0.52-1.04) mg/dL Glucose 266 H (74-99) mg/dL POC Glucose (mg/dL) (70-110) mg/dL Hemoglobin A1c (<=6.0) % Calcium (8.4-10.2) mg/dL AST (14-36) U/L Lactate Dehydrogenase (120-246) U/L C-Reactive Protein (<1.0) mg/dL Total Protein (6.3-8.2) g/dL Albumin (3.5-5.0) g/dL 11/05/22 11/05/22 11/05/22 Range/Units 16:48 19:56 21:56 RBC (3.80-5.40) m/uL Hct (34.0-46.0) % Plt Count (150-450) k/uL Lymphocytes # (1.0-4.8) k/uL APTT 46.3 H (22.0-30.0) sec Sodium (137-145) mmol/L Carbon Dioxide (22-30) mmol/L BUN (7-17) mg/dL Creatinine (0.52-1.04) mg/dL Glucose (74-99) mg/dL POC Glucose (mg/dL) 273 H 272 H (70-110) mg/dL Hemoglobin A1c (<=6.0) % Calcium (8.4-10.2) mg/dL AST (14-36) U/L Lactate Dehydrogenase (120-246) U/L C-Reactive Protein (<1.0) mg/dL Total Protein (6.3-8.2) g/dL Albumin (3.5-5.0) g/dL 11/05/22 11/05/22 11/06/22 Range/Units 21:56 21:56 05:47 RBC 3.60 L 3.73 L (3.80-5.40) m/uL Hct 33.3 L (34.0-46.0) % Plt Count 142 L 131 L (150-450) k/uL Lymphocytes # 0.8 L (1.0-4.8) k/uL APTT (22.0-30.0) sec Sodium 133 L (137-145) mmol/L Carbon Dioxide (22-30) mmol/L BUN 44 H (7-17) mg/dL Creatinine 1.42 H (0.52-1.04) mg/dL Glucose 185 H (74-99) mg/dL POC Glucose (mg/dL) (70-110) mg/dL Hemoglobin A1c (<=6.0) % Calcium (8.4-10.2) mg/dL AST 45 H (14-36) U/L Lactate Dehydrogenase 462 H (120-246) U/L C-Reactive Protein (<1.0) mg/dL Total Protein 5.4 L (6.3-8.2) g/dL Albumin 2.7 L (3.5-5.0) g/dL 11/06/22 11/06/22 11/06/22 Range/Units 05:47 07:01 07:47 RBC (3.80-5.40) m/uL Hct (34.0-46.0) % Plt Count (150-450) k/uL Lymphocytes # (1.0-4.8) k/uL APTT 36.1 H (22.0-30.0) sec Sodium 135 L (137-145) mmol/L Carbon Dioxide 31 H (22-30) mmol/L BUN 44 H (7-17) mg/dL Creatinine 1.47 H (0.52-1.04) mg/dL Glucose 117 H (74-99) mg/dL POC Glucose (mg/dL) 137 H (70-110) mg/dL Hemoglobin A1c (<=6.0) % Calcium 8.2 L (8.4-10.2) mg/dL AST (14-36) U/L Lactate Dehydrogenase 669 H (120-246) U/L C-Reactive Protein (<1.0) mg/dL Total Protein (6.3-8.2) g/dL Albumin (3.5-5.0) g/dL
[2022-11-06] MEDS: SACUBITRIL/VALSARTAN 24 MG-26 MG TABLET PO SCH (11:18)
[2022-11-06 11:23] LABS: Glucose,Whole Blood 151 mg/dL (70-110)
[2022-11-06] MEDS: metOLazone 5 MG TAB PO SCH (13:30)
[2022-11-06] MEDS: SODIUM BICARB (1 MEQ/ML) 12.5 ML in DEXTROSE 5% IN WATER 500 ML IV SCH ×2 (14:16)
--- NOTE | 2022-11-06 15:37 | XR ---
EXAMINATION TYPE: XR chest 1V portable DATE OF EXAM: 11/06/2022 COMPARISON: 11/06/2022 INDICATION: [place] placement TECHNIQUE: Single frontal view of the chest is obtained. FINDINGS: The heart size is moderately prominent. The pulmonary vasculature is normal. Mild infiltrates at the left base. Correlate for atelectasis Catheter enters from the inferior vena cava region and head superiorly. This appears to extend into t he superior vena cava region. Correlate with the waveforms. Superior distal pulmonary artery and less likely within the differential. IMPRESSION: 1. Catheter on the right appears to be in the superior vena cava region and possibly distal pulmonary artery. Correlate with waveforms. This should be pulled back and repositioned.
--- NOTE | 2022-11-06 16:02 | P.PN ---
Progress Note - Text Progress Note Date: 11/06/22 Hospital course. follows with Dr. Miller. Machine Ii Coremaker Dr. Krause. .77 years old female with past medical history of History of coronary artery disease status post stenting, diabetes mellitus, hypertension, hyperlipidemia Patient presents because of worsening dyspnea over one week with possible e lements of orthopnea. Also patient reports worsening of leg swelling. Occasional coughing. Occasional chest pain when lying down, last episode was 2 days ago currently patient denies any chest pain or discomfort and epigastric pain or neck pain. She does not look in respiratory distress when she talks easily and she does not use accessory respiratory muscles. She denies any urinary GI or neurological specific symptoms to me. She denies smoking alcohol or illicit drugs. Her PCP is Dr. Miller and her fha underwriter is Dr. Krause Patient is mildly tachycardic and tachypneic labs reviewed, CBC, INR within the reference range. Creatinine is elevated 1.4, and 1.3 which is at or close to baseline of 1.2-1.4. mildly elevated lactic acid came back to normal. Troponin 1.5, 2.2 Chest x-ray: Cardiomegaly with pulmonary vascular congestion and bilateral pleural effusion. Possible congestive heart failure Echocardiogram from : Ejection fraction of 35-40% with dilated left ventricle with severe LV dysfunction and 2+ mitral regurgitation 11/04: Patient seen and evaluated bedside, home medications reviewed. Started on high-dose correctional insulin as well as Lantus. Aldactone discontinued. Continue patient on IV Lasix, continue IV heparin planned for cardiac catheterization 11/05: Patient seen and evaluated bedside. Patient is status post cardiac catheterization transferred to medical ICU. Status post impela placement, patient transferred to medical ICU. Cardiology and MICU team consulted and notified about new consult. Patient evaluated alert and oriented times 3.Care plan discussed with family denies of chest pain November 06: I assumed care of the patient today. ICU. Laying in bed. No chest pain. Currently on Impella. 2 L dose cannula. Patient this afternoon is nothing by mouth. High risk for surgery, pending decision as per cartilage. For further intervention. This admission was found over in-stent stenosis of OM1. Active Medications Acetaminophen (Acetaminophen Tab 325 Mg Tab) 650 mg PO Q4HR PRN PRN Reason: Pain Alprazolam (Alprazolam 0.25 Mg Tab) 0.25 mg PO Q6HR PRN PRN Reason: Mild Anxiety Alprazolam (Alprazolam 0.5 Mg Tab) 0.5 mg PO Q6HR PRN PRN Reason: Moderate Anxiety Ascorbic Acid (Ascorbic Acid 500 Mg Tab) 1,000 mg PO DAILY [facility] Last Admin: 11/06/22 10:04 Dose: 1,000 mg Aspirin (Aspirin 81 Mg) 81 mg PO DAILY [facility] Last Admin: 11/06/22 10:04 Dose: 81 mg Atorvastatin Calcium (Atorvastatin 80 Mg Tab) 80 mg PO DAILY [facility] Last Admin: 11/06/22 10:03 Dose: 80 mg Carvedilol (Carvedilol 3.125 Mg Tab) 3.125 mg PO BID [facility] Last Admin: 11/06/22 10:03 Dose: 3.125 mg Cholecalciferol (Cholecalciferol 25 Mcg (1000 Iu) Tablet) 25 mcg PO DAILY [facility] Last Admin: 11/06/22 10:03 Dose: 25 mcg Clopidogrel Bisulfate (Clopidogrel 75 Mg Tab) 75 mg PO DAILY [facility] Last Admin: 11/06/22 10:03 Dose: Not Given Dextrose/Water (Dextrose 50% Syringe 50 Ml) 25 ml IVP PER PROTOCOL PRN; Protocol PRN Reason: Hypoglycemia Dextrose/Water (Dextrose 50% Syringe 50 Ml) 50 ml IVP PER PROTOCOL PRN; Protocol PRN Reason: Hypoglycemia Furosemide (Furosemide 10 Mg/Ml 4 Ml Vial) 80 mg IV Q8HR [facility] Heparin Sodium (Porcine) (Heparin Sodium 1,000 Un/Ml (10ml Vl)) 0 unit IV PER PROTOCOL PRN; Protocol PRN Reason: Low PTT Heparin Sodium/Sodium Chloride (25,000 unit/ Sodium Chloride) 250 mls @ 10 mls/hr IV .Q24H [facility]; Protocol Last Titration: 11/06/22 08:12 Dose: 13.8 units/kg/hr, 17.527 mls/hr Heparin Sodium (Porcine) 10, (000 unit/ Sodium Chloride) 1,001 mls @ 999 mls/hr IRRIGATION ONCE PRN PRN Reason: INTRA-OP Stop: 11/06/22 23:00 Heparin Sodium (Porcine) 2,500 (unit/ Sodium Chloride) 250.5 mls @ 250 mls/hr IRRIGATION ONCE PRN PRN Reason: INTRA-OP Stop: 11/06/22 23:00 Sodium Chloride 1,000 ml/ IV (Solution) 1,000 mls @ 135.4 mls/hr IV .[id number] [facility] Last Admin: 11/06/22 10:04 Dose: 135.4 mls/hr Sodium Bicarbonate 12.5 ml/ (Dextrose/Water) 512.5 mls @ 0 mls/hr IV DIRECTED [facility]; Protocol Last Admin: 11/06/22 14:16 Dose: 18.8 mls/hr Norepinephrine Bitartrate 4 mg (/ Sodium Chloride) 254 mls @ 15.476 mls/hr IV .[id number] [facility]; Protocol Last Titration: 11/06/22 04:01 Dose: 0 mcg/kg/min, 0 mls/hr Insulin Aspart (Insulin Aspart (Novolog) 100 Unit/Ml Vial) 0 unit SQ ACHS [facility]; Protocol Last Admin: 11/06/22 11:23 Dose: Not Given Insulin Detemir (Insulin Detemir (Levemir) 100 Unit/Ml Syr) 30 unit SQ DAILY@0700 [facility] Last Admin: 11/06/22 09:13 Dose: Not Given Insulin Detemir (Insulin Detemir (Levemir) 100 Unit/Ml Syr) 30 unit SQ HS [facility] Last Admin: 11/05/22 17:54 Dose: 30 unit Isosorbide Mononitrate (Isosorbide Mononitrate Er 60 Mg Tab.Er.24h) 60 mg PO DAILY [facility] Last Admin: 11/06/22 10:05 Dose: Not Given Metolazone (Metolazone 5 Mg Tab) 10 mg PO DAILY [facility] Last Admin: 11/06/22 13:30 Dose: 10 mg Miscellaneous Information (Potassium Replacement Protocol 1 Each Misc) 1 each MISCELLANE DAILY PRN; Protocol PRN Reason: Per Protocol Morphine Sulfate (Morphine Sulfate 4 Mg/Ml Syringe) 4 mg IV Q5M PRN PRN Reason: Chest Pain Nitroglycerin (Nitroglycerin Sl Tabs 0.4 Mg Tab) 0.4 mg SUBLINGUAL Q5M PRN PRN Reason: Chest Pain Last Admin: 11/05/22 07:07 Dose: 0.4 mg Pantoprazole Sodium (Pantoprazole 40 Mg/10 Ml Vial) 40 mg IVP DAILY [facility] Last Admin: 11/06/22 10:04 Dose: 40 mg Sacubitril/Valsartan (Sacubitril/Valsartan 24 Mg-26 Mg Tablet) 1 each PO DAILY [facility] Last Admin: 11/06/22 11:18 Dose: Not Given Past medical history to include: Diabetes, hypertension, hyperlipidemia, [place] in 2010, CAD with stent in 2019 Social history: . No smoking or alcohol Physical examination: VITAL SIGNS: 99.3, 87, 22, 104/57, 94% on 2 L GENERAL: BMI 56.2, laying in bed, awake, tired. Attached to Impella EYES: Pupils equal. Conjunctiva normal. HEENT: External appearance of nose and ears normal, oral cavity grossly normal. NECK: JVD not raised; masses not palpable. HEART: First and second heart sounds are normal; some edema. LUNGS: Respiratory rate normal; decreased breath sound. ABDOMEN: Soft, nontender, liver spleen not palpable, no masses palpable. PSYCH: Alert and oriented x3; mood and affect anxious MUSCULOSKELETAL:No Clubbing/cyanosis;muscles-grossly intact. OA INVESTIGATIONS, reviewed in the clinical context: November 06: White count 7.8 hemoglobin 11.8 platelets 131 sodium 135 potassium 4.2 BUN 44 creatinine 1.47 2-D echocardiogram [limited close bracket: EF 20%. She seemingly reduced LV function. Previous labs: Creatinine 1.22 on May 2022 Assessment and plan: -Acute non-Q-wave NH. Known CAD. Aspirin, IV heparin, beta darian - known 3-vessel CAD with chronically occluded RCA, with stents -Acute on chronic congestive diastolic heart failure of systolic dysfunction, EF 20 %, ischemic cardiomyopathy: Not improving. Impella placed-November 05. Coreg. Entresto. Zaroxolyn. IV Lasix 80 mg every 8. -Diabetes mellitus type 2, chronically on insulin Levemir 30 mg subcu every 12. follow Accu-Cheks with sliding scale -Essential hypertension Coreg, Entresto -Acute kidney injury, ATN likely cardiorenal Creatinine was 1.2 in May 2022 -Chronic kidney disease multifactorial, stage III -Morbid obesity BMI 56.2 Weight loss measures. Follow with PCP. -Full code Care was discussed length with the patient. Obviously patient rather concerned about her overall condition. I tried to give a more general on assess him to discuss with the patient to discuss it further with the fha underwriter. She will also wants to discuss with them if she fare better with a transfer to a tertiary center. Again advised her to discuss this with cardiology.
--- NOTE | 2022-11-06 16:04 | XR ---
EXAMINATION TYPE: XR chest 1V portable DATE OF EXAM: 11/06/2022 COMPARISON: 11/02/2022 INDICATION: LVAD placement TECHNIQUE: Single frontal view of the chest is obtained. FINDINGS: The heart size is mildly prominent. The pulmonary vasculature is normal. No suspicious infiltrate Device is in place with the tip in the region of the ascending thoracic aorta. IMPRESSION: 1. No acute pulmonary process. 2. Device is present with tip in the ascending aorta region.
--- NOTE | 2022-11-06 16:08 | P.GSCN ---
History of Present Illness Consult date: 11/06/22 Reason for Consult: Multivessel coronary artery disease, non-ST elevated lateral infarction this admission Requesting physician: Bertram Osborne History of present illness: This is a 77-year-old female patient who follows on an outpatient basis for primary care with nurse practitioner Mickie Saenz and for her cardiology care she follows with Dr. Krause. She has a past medical history significant for coronary artery disease with previous PCI with most recently stent placement in May 2022. She also has a past medical history significant for myocardial infarction, hypertension, hyperlipidemia, insulin-dependent diabetes mellitus, remote history of pneumonia, uterine cancer status post hysterectomy, morbid obesity with a BMI of 56.2 kg/m, acute on chronic congestive heart failure, history of vein stripping 7 to 8 years ago, chronic lymphedema, chronic kidney disease with a baseline creatinine of 1.2-1.4, she is a lifetime nonsmoker and has a family history of early onset coronary artery disease. The patient presented to the emergency department here at [facility] on 11/02/2022 with complaints of shortness of breath and increased swelling to her bilateral lower extremities. She also reports that she does get intermittent chest pain off and on which has been present for the last month. She reports the shortness of breath started last Sunday, although progressively got worse and she decided to seek further medical care. She denies any recent fever, chills, nausea, vomiting, diarrhea, constipation, headache, palpitations, lightheadedness, hemoptysis, hematemesis, presyncope or syncope. A 12-lead EKG was completed in the emergency department which showed sinus Tachycardia with heart rate 121 BPM, possible septal lateral myocardial infarction of indeterminate age and right axis deviation. Initial laboratory results showed a WBC count of 10.6, hemoglobin 14.1, hematocrit 42.7, platelet count 181, PT 10.2, INR 1.0, PTT 23.9, sodium 137, potassium 4.6, chloride 101, CO2 27, BUN 31, creatinine 1.40, glucose 164, plasma black acid venous 2.9, calcium 9.2, total bilirubin 1.5, proBNP was 11,400, and she also had elevated serial troponins 0.979, 1.590 and 2.210. A chest x-ray was completed which showed cardiomegaly, pulmonary vascular congestion and bilateral pleural effusions. Subsequently, due to the patient's history of coronary artery disease, elevated BNP and troponins, and the patient's presenting symptoms a consult was placed to Dr. Krause from cardiology. On 11/03/2022 a transthoracic 2-D echocardiogram was completed which demonstrated a left ventricular ejection fraction estimated at 20-25%, moderately increased left ventricular thickness, moderate mitral valve regurgitation, moderate tricuspid valve regurgitation, and no pericardial effusion. For further evaluation the patient was recommended to undergo a cardiac catheterization which was completed yesterday 11/05/2022 and demonstrated a 50% distal left main stenosis, an 80-90% stenosis to her mid left anterior descending coronary artery, a 90% ostial stenosis to her circumflex coronary artery, and a 90% in-stent restenosis of her obtuse marginal coronary artery. It also demonstrated collaterals from the left coronary artery to the distal right coronary artery, and right coronary artery angiogram was not completed on this cardiac catheterization. Also on 11/05/2022 the patient had an Impella placed by Dr. Osborne from cardiology. The Impella is currently at P9, and his most recent hemodynamics showed a cardiac output of 6.3 and a cardiac index of 2.8. According to the patient's night nurse she was on norepinephrine for blood pressure support throughout the night and was subsequently shut off at around 4 AM this morning. Due to the findings on the cardiac catheterization and transthoracic 2-D echocardiogram a consult was placed to cardiothoracic surgery for further evaluation and treatment recommendations. The patient was seen by cardiothoracic surgery service back in May 2022 with an STS risk score showing risk for CABG at 9% and CABG/mitral valve repair at 15%. Review of Systems A 14 point review of systems was completed and was negative except as mentioned in the HPI. Past Medical History Past Medical History: Coronary Artery Disease (CAD), Cancer, Chest Pain / Angina, Heart Failure, Diabetes Mellitus, Hyperlipidemia, Hypertension, Myocardial Infarction ([place]), Pneumonia Additional Past Medical History / Comment(s): 6 stents placed and 2 heart attacks; uterine cancer 2011 Last Myocardial Infarction Date:: 2018 History of Any Multi-Drug Resistant Organisms: None Reported Past Surgical History: Cholecystectomy, Heart Catheterization With Stent, Hysterectomy, Orthopedic Surgery Additional Past Surgical History / Comment(s): right knee replacement-2017. D&C x 2. History of cardiac stent placement x9. June 2018 and in May 2022. Left leg vein stripping Past Anesthesia/Blood Transfusion Reactions: No Reported Reaction Date of Last Stent Placement:: 2018 Past Psychological History: No Psychological Hx Reported Smoking Status: Never smoker Past Alcohol Use History: None Reported Past Drug Use History: None Reported - Past Family History Mother Family Medical History: CVA/TIA, Myocardial Infarction ([place]) Additional Family Medical History / Comment(s): at 94 years old Father Family Medical History: CVA/TIA Additional Family Medical History / Comment(s): Dietd at 98 years old Brother(s) Family Medical History: Cancer, Coronary Artery Disease (CAD) Additional Family Medical History / Comment(s): Heart disease diagnosed in his 40s Son(s) Family Medical History: No Reported History Daughter(s) Family Medical History: No Reported History Medications and Allergies Home Medications Medication Instructions Recorded Confirmed Type Clopidogrel Bisulfate [Plavix] 75 mg PO DAILY 06/20/18 11/02/22 History Nitroglycerin Sl Tabs [Nitrostat] 0.4 mg SUBLINGUAL Q5M PRN #25 tab 06/22/18 0 11/02/22 Rx Insulin Lispro Protamin/Lispro 1 - 55 unit SQ BID 03/21/22 11/02/22 History [humaLOG MIX 75-25 Kwikpen] Ascorbic Acid [Vitamin C] 1,000 mg PO DAILY 03/22/22 11/02/22 History Ergocalciferol [Vitamin D2 (1250 1,250 mcg PO MO 03/22/22 11/02/22 History Mcg = 73017 Iu)] Magnesium Oxide [Magnesium] 500 mg PO DAILY 03/22/22 11/02/22 History Spironolactone [Aldactone] 12.5 mg PO DAILY #45 tablet 03/22/22 11/02/22 Rx Atorvastatin [Lipitor] 80 mg PO DAILY #30 tab 06/02/22 11/02/22 Rx Cholecalciferol [Vitamin D3 (25 25 mcg PO DAILY 11/02/22 11/02/22 History Mcg = 1000 Iu)] Furosemide [Lasix] 40 mg PO DAILY 11/02/22 11/02/22 History Isosorbide Mononitrate ER [Imdur] 60 mg PO DAILY 11/02/22 11/02/22 History Sacubitril/Valsartan [Entresto 24 1 tab PO DAILY 11/02/22 11/02/22 History mg-26 mg Tablet] Vitamin B Complex 1 cap PO DAILY 11/02/22 11/02/22 History carvediloL [Coreg] 3.125 mg PO DIRECTED 11/02/22 11/02/22 History Allergies Allergy/AdvReac Type Severity Reaction Status Date / Time Penicillins Allergy Rash/Hives/ Verified 11/02/22 18:04 Blistering Surgical - Exam Vital Signs Temp Pulse Resp BP Pulse Ox 98.0 F 128 H 18 118/65 98 11/02/22 16:24 11/02/22 16:24 11/02/22 16:24 11/02/22 16:24 11/02/22 16:24 - General well developed, well nourished, no distress, no pain, chronically ill, obese (Morbidly obese with a BMI of 56.2 kg/m) - Eyes PERRL, normal ocular movement, no pale, no icteric - ENT normal pinna, normal nares, normal mucosa, no hearing loss, no congestion - Neck Neck is supple, no lymphadenopathy. no masses, no bruits, trachea midline, no venous distension - Respiratory Lung sounds essentially clear throughout, diminished her bilateral bases. - Cardiovascular Regular rhythm and rate. S1 and S2 present, negative for S3, gallop or murmur. +1- +2 edema to her bilateral lower extremities. - Abdomen Abdomen is soft, nontender and nondistended. Active bowel sounds present in all 4 abdominal quadrants. No guarding or rigidity. Obese. - Genitourinary Rose catheter for accurate I's and O's. Clear yellow urine. - Rectum Deferred - Integumentary Skin is warm and dry. No clubbing or cyanosis is present. Erythema area to her right lower extremity. Right groin site where Impella and Fonda-Nadia catheter are inserted is soft to palpate and nontender. - Neurologic No focal deficits. - Musculoskeletal Moves all 4 extremities with equal strength bilaterally. - Psychiatric oriented to time, oriented to person, oriented to place, speech is normal, memory intact Results - Labs 11/09/22 07:16 11/09/22 06:52 Abnormal Lab Results - Last 24 Hours (Table) 11/05/22 11/05/22 11/05/22 Range/Units 07:50 07:50 07:50 RBC (3.80-5.40) m/uL Hct (34.0-46.0) % Plt Count (150-450) k/uL Lymphocytes # (1.0-4.8) k/uL APTT 73.1 H (22.0-30.0) sec Sodium 135 L (137-145) mmol/L Carbon Dioxide (22-30) mmol/L BUN 48 H (7-17) mg/dL Creatinine 1.59 H (0.52-1.04) mg/dL Glucose 164 H (74-99) mg/dL POC Glucose (mg/dL) (70-110) mg/dL Hemoglobin A1c 6.6 H (<=6.0) % Calcium (8.4-10.2) mg/dL AST (14-36) U/L Lactate Dehydrogenase (120-246) U/L C-Reactive Protein 3.5 H (<1.0) mg/dL Total Protein (6.3-8.2) g/dL Albumin (3.5-5.0) g/dL 11/05/22 11/05/22 11/05/22 Range/Units 14:57 15:45 15:45 RBC (3.80-5.40) m/uL Hct (34.0-46.0) % Plt Count 144 L (150-450) k/uL Lymphocytes # (1.0-4.8) k/uL APTT 165.9 H* (22.0-30.0) sec Sodium (137-145) mmol/L Carbon Dioxide (22-30) mmol/L BUN (7-17) mg/dL Creatinine (0.52-1.04) mg/dL Glucose (74-99) mg/dL POC Glucose (mg/dL) 276 H (70-110) mg/dL Hemoglobin A1c (<=6.0) % Calcium (8.4-10.2) mg/dL AST (14-36) U/L Lactate Dehydrogenase (120-246) U/L C-Reactive Protein (<1.0) mg/dL Total Protein (6.3-8.2) g/dL Albumin (3.5-5.0) g/dL 11/05/22 11/05/22 11/05/22 Range/Units 15:45 16:48 19:56 RBC (3.80-5.40) m/uL Hct (34.0-46.0) % Plt Count (150-450) k/uL Lymphocytes # (1.0-4.8) k/uL APTT (22.0-30.0) sec Sodium 133 L (137-145) mmol/L Carbon Dioxide 20 L (22-30) mmol/L BUN 46 H (7-17) mg/dL Creatinine 1.60 H (0.52-1.04) mg/dL Glucose 266 H (74-99) mg/dL POC Glucose (mg/dL) 273 H 272 H (70-110) mg/dL Hemoglobin A1c (<=6.0) % Calcium (8.4-10.2) mg/dL AST (14-36) U/L Lactate Dehydrogenase (120-246) U/L C-Reactive Protein (<1.0) mg/dL Total Protein (6.3-8.2) g/dL Albumin (3.5-5.0) g/dL 11/05/22 11/05/22 11/05/22 Range/Units 21:56 21:56 21:56 RBC 3.60 L (3.80-5.40) m/uL Hct 33.3 L (34.0-46.0) % Plt Count 142 L (150-450) k/uL Lymphocytes # 0.8 L (1.0-4.8) k/uL APTT 46.3 H (22.0-30.0) sec Sodium 133 L (137-145) mmol/L Carbon Dioxide (22-30) mmol/L BUN 44 H (7-17) mg/dL Creatinine 1.42 H (0.52-1.04) mg/dL Glucose 185 H (74-99) mg/dL POC Glucose (mg/dL) (70-110) mg/dL Hemoglobin A1c (<=6.0) % Calcium (8.4-10.2) mg/dL AST 45 H (14-36) U/L Lactate Dehydrogenase 462 H (120-246) U/L C-Reactive Protein (<1.0) mg/dL Total Protein 5.4 L (6.3-8.2) g/dL Albumin 2.7 L (3.5-5.0) g/dL 11/06/22 11/06/22 11/06/22 Range/Units 05:47 05:47 07:01 RBC 3.73 L (3.80-5.40) m/uL Hct (34.0-46.0) % Plt Count 131 L (150-450) k/uL Lymphocytes # (1.0-4.8) k/uL APTT (22.0-30.0) sec Sodium 135 L (137-145) mmol/L Carbon Dioxide 31 H (22-30) mmol/L BUN 44 H (7-17) mg/dL Creatinine 1.47 H (0.52-1.04) mg/dL Glucose 117 H (74-99) mg/dL POC Glucose (mg/dL) 137 H (70-110) mg/dL Hemoglobin A1c (<=6.0) % Calcium 8.2 L (8.4-10.2) mg/dL AST (14-36) U/L Lactate Dehydrogenase 669 H (120-246) U/L C-Reactive Protein (<1.0) mg/dL Total Protein (6.3-8.2) g/dL Albumin (3.5-5.0) g/dL Diabetes panel 11/05/22 11/05/22 11/05/22 Range/Units 07:50 07:50 15:45 Sodium 135 L 133 L (137-145) mmol/L Potassium 4.6 4.0 (3.5-5.1) mmol/L Chloride 101 99 (98-107) mmol/L Carbon Dioxide 24 20 L (22-30) mmol/L BUN 48 H 46 H (7-17) mg/dL Creatinine 1.59 H 1.60 H (0.52-1.04) mg/dL Glucose 164 H 266 H (74-99) mg/dL Hemoglobin A1c 6.6 H (<=6.0) % Calcium 9.0 8.7 (8.4-10.2) mg/dL AST (14-36) U/L ALT (4-34) U/L Alkaline Phosphatase (38-126) U/L Total Protein (6.3-8.2) g/dL Albumin (3.5-5.0) g/dL 11/05/22 11/06/22 Range/Units 21:56 05:47 Sodium 133 L 135 L (137-145) mmol/L Potassium 3.5 4.2 (3.5-5.1) mmol/L Chloride 101 102 (98-107) mmol/L Carbon Dioxide 27 31 H (22-30) mmol/L BUN 44 H 44 H (7-17) mg/dL Creatinine 1.42 H 1.47 H (0.52-1.04) mg/dL Glucose 185 H 117 H (74-99) mg/dL Hemoglobin A1c (<=6.0) % Calcium 8.4 8.2 L (8.4-10.2) mg/dL AST 45 H (14-36) U/L ALT 20 (4-34) U/L Alkaline Phosphatase 68 (38-126) U/L Total Protein 5.4 L (6.3-8.2) g/dL Albumin 2.7 L (3.5-5.0) g/dL Calcium panel 11/05/22 11/05/22 11/05/22 Range/Units 07:50 15:45 21:56 Calcium 9.0 8.7 8.4 (8.4-10.2) mg/dL Albumin 2.7 L (3.5-5.0) g/dL 11/06/22 Range/Units 05:47 Calcium 8.2 L (8.4-10.2) mg/dL Albumin (3.5-5.0) g/dL Pituitary panel 11/05/22 11/05/22 11/05/22 Range/Units 07:50 15:45 21:56 Sodium 135 L 133 L 133 L (137-145) mmol/L Potassium 4.6 4.0 3.5 (3.5-5.1) mmol/L Chloride 101 99 101 (98-107) mmol/L Carbon Dioxide 24 20 L 27 (22-30) mmol/L BUN 48 H 46 H 44 H (7-17) mg/dL Creatinine 1.59 H 1.60 H 1.42 H (0.52-1.04) mg/dL Glucose 164 H 266 H 185 H (74-99) mg/dL Calcium 9.0 8.7 8.4 (8.4-10.2) mg/dL 11/06/22 Range/Units 05:47 Sodium 135 L (137-145) mmol/L Potassium 4.2 (3.5-5.1) mmol/L Chloride 102 (98-107) mmol/L Carbon Dioxide 31 H (22-30) mmol/L BUN 44 H (7-17) mg/dL Creatinine 1.47 H (0.52-1.04) mg/dL Glucose 117 H (74-99) mg/dL Calcium 8.2 L (8.4-10.2) mg/dL Adrenal panel 11/05/22 11/05/22 11/05/22 Range/Units 07:50 15:45 21:56 Sodium 135 L 133 L 133 L (137-145) mmol/L Potassium 4.6 4.0 3.5 (3.5-5.1) mmol/L Chloride 101 99 101 (98-107) mmol/L Carbon Dioxide 24 20 L 27 (22-30) mmol/L BUN 48 H 46 H 44 H (7-17) mg/dL Creatinine 1.59 H 1.60 H 1.42 H (0.52-1.04) mg/dL Glucose 164 H 266 H 185 H (74-99) mg/dL Calcium 9.0 8.7 8.4 (8.4-10.2) mg/dL Total Bilirubin 1.3 (0.2-1.3) mg/dL AST 45 H (14-36) U/L ALT 20 (4-34) U/L Alkaline Phosphatase 68 (38-126) U/L Total Protein 5.4 L (6.3-8.2) g/dL Albumin 2.7 L (3.5-5.0) g/dL 11/06/22 Range/Units 05:47 Sodium 135 L (137-145) mmol/L Potassium 4.2 (3.5-5.1) mmol/L Chloride 102 (98-107) mmol/L Carbon Dioxide 31 H (22-30) mmol/L BUN 44 H (7-17) mg/dL Creatinine 1.47 H (0.52-1.04) mg/dL Glucose 117 H (74-99) mg/dL Calcium 8.2 L (8.4-10.2) mg/dL Total Bilirubin (0.2-1.3) mg/dL AST (14-36) U/L ALT (4-34) U/L Alkaline Phosphatase (38-126) U/L Total Protein (6.3-8.2) g/dL Albumin (3.5-5.0) g/dL - Imaging Chest x-ray: report reviewed, image reviewed Assessment and Plan Assessment: Non-ST elevated myocardial infarction this admission, status post cardiac catheterization yesterday 11/05/2022 showing multivessel coronary artery disease Cardiogenic shock, status post insertion of Impella on 11/05/2022 Coronary artery disease with history of multiple previous PCI most recently in May 2022 with stent placement to her obtuse marginal and circumflex coronary arteries Acute hypoxemic respiratory failure, currently on 2 L nasal cannula Acute on chronic systolic congestive heart failure, transthoracic 2-D echocardiogram showing a reduced ejection fraction of 20-25%, moderate mitral valve regurgitation and moderate tricuspid valve regurgitation Chronic kidney disease with a baseline creatinine of 1.2-1.4 History of hypertension, patient was hypotensive throughout the night requiring norepinephrine support, resolved Hyperlipidemia Insulin-dependent diabetes mellitus with a hemoglobin A1c of 6.6% Morbid obesity with a BMI of 56.2 kg/m History of uterine cancer, status post hysterectomy Osteoarthritis Lifetime nonsmoker Plan: The patient was seen and examined at her bedside in the intensive care unit. Her chart and diagnostics were reviewed. Her case was discussed in detail with Dr. Parmjit Perea from cardiothoracic surgery. The usual perioperative course of open heart surgery was discussed in detail with the patient, risks and benefits reviewed and all questions were answered. Continue to maximize medical therapy with aspirin, statin and beta darian. Impella management per cardiology recommendations. An STS risk score calculated for isolated CABG showed an operative mortality risk of 51.3%. Due to the high STS risk score the patient would be considered an extremely high risk surgical candidate and would be better served with high risk PCI if at all possible with Impella. Medical management other comorbidities per primary care service. Thank you Dr. Osborne for this consult I have personally seen and examined the patient, performed the documentation and the assessment and plan as written. 30 minutes spent on the visit. Pavel VIDAL. Pt seen and evaluated with BIOLOGY SPECIMEN TECHNICIAN above. Agree with his assessment and plan. This is a 77 y/o F with previous PCI who presents with unstable angina and angiography reveals progression of her 3v CAD including left main disease with decreased EF to 20% now. She underwent left sided impella placement. She has significantly decreased RV function with severe MR. Her STS risk of mortality from surgery is > 50%. Recommend high risk PCI. She can get mitraclip in the future.
[2022-11-06] MEDS: NOREPINEPHRINE 4 MG in SODIUM CHLORIDE 0.9% 250 ML IV SCH (16:09)
[2022-11-06 16:40] LABS: Glucose,Whole Blood 223 mg/dL (70-110)
[2022-11-06 20:16] LABS: Glucose,Whole Blood 233 mg/dL (70-110)
[2022-11-06 22:25] LABS: Partial Thromboplastin Time 57.1 sec (22.0-30.0)
[2022-11-06] MEDS: ACETAMINOPHEN TAB 325 MG TAB PO PRN (22:32)
[2022-11-07] MEDS: FUROSEMIDE 10 MG/ML 4 ML VIAL IV SCH ×4 (00:28→23:52)
[2022-11-07 03:56] LABS: Basophils % (A) 0 %; Eosinophils # (A) 0.1 k/uL (0-0.7); Eosinophils % (A) 1 %; HCT 35.5 % (34.0-46.0); HGB 11.9 gm/dL (11.4-16.0); Lymphocytes # (A) 1.5 k/uL (1.0-4.8); Lymphocytes % (A) 15 %; MCHC 33.6 g/dL (31.0-37.0); MCV 92.3 fL (80.0-100.0); Mean Platelet Volume 12.3; Monocytes # (A) 0.8 k/uL (0-1.0); Monocytes % (A) 7 %; Neutrophils # (A) 7.6 k/uL (1.3-7.7); Neutrophils % (A) 75 %; Platelet Count 116 k/uL (150-450); RBC 3.85 m/uL (3.80-5.40); RDW 13.5 % (11.5-15.5); WBC 10.1 k/uL (3.8-10.6)
[2022-11-07 04:01] LABS: ALT 21 U/L (4-34); AST 53 U/L (14-36); African American GFR (CKD) 43 (>60 ml/min/1.73 sqM); Albumin 2.8 g/dL (3.5-5.0); Alkaline Phosphatase 90 U/L (38-126); Anion Gap 3 mmol/L; Blood Urea Nitrogen 39 mg/dL (7-17); Calcium 8.7 mg/dL (8.4-10.2); Carbon Dioxide 35 mmol/L (22-30); Chloride 92 mmol/L (98-107); Glucose 182 mg/dL (74-99); Non-African American GFR(CKD) 37 (>60 ml/min/1.73 sqM); Potassium 3.6 mmol/L (3.5-5.1); Sodium 130 mmol/L (137-145); Total Bilirubin 1.7 mg/dL (0.2-1.3); Total Protein 5.5 g/dL (6.3-8.2)
[2022-11-07] MEDS ORDERED: POTASSIUM BICARBONATE/CIT AC 20 MEQ TABLET.EFF NG-TUBE SCH ×3 (05:00→18:00)
[2022-11-07 06:49] LABS: Glucose,Whole Blood 162 mg/dL (70-110)
[2022-11-07] MEDS: NOREPINEPHRINE 4 MG in SODIUM CHLORIDE 0.9% 250 ML IV SCH (08:23)
[2022-11-07 08:35] LABS: Glucose,Whole Blood 180 mg/dL (70-110)
[2022-11-07] MEDS: INSULIN DETEMIR (LEVEMIR) 100 UNIT/ML SYR SQ SCH ×3 (08:42→20:20)
[2022-11-07] MEDS: INSULIN ASPART (NovoLOG) 100 UNIT/ML VIAL SQ SCH ×4 (08:43→20:20)
[2022-11-07] MEDS: PANTOPRAZOLE 40 MG/10 ML VIAL IVP SCH (08:43)
[2022-11-07] MEDS: ASPIRIN 81 MG PO SCH ×2 (08:43→09:41)
[2022-11-07] MEDS: CHOLECALCIFEROL 25 MCG (1000 IU) TABLET PO SCH (08:44)
[2022-11-07] MEDS: carvediloL 3.125 MG TAB PO SCH ×2 (08:44→20:31)
[2022-11-07] MEDS: ATORVASTATIN 80 MG TAB PO SCH (08:44)
[2022-11-07] MEDS: metOLazone 5 MG TAB PO SCH (08:44)
[2022-11-07] MEDS: NYSTATIN 100,000 UNIT/GM POWD 15 GM TOPICAL SCH ×2 (08:44→20:18)
[2022-11-07] MEDS: ASCORBIC ACID 500 MG TAB PO SCH (08:44)
--- NOTE | 2022-11-07 09:18 | XR ---
EXAMINATION TYPE: XR chest 1V portable DATE OF EXAM: 11/07/2022 COMPARISON: 11/06/2022 HISTORY: Shortness of breath TECHNIQUE: Single frontal view of the chest is obtained. FINDINGS: Cardiomegaly with diffuse interstitial prominence correlate for CHF. Left lower lobe conso lidation and small bilateral effusions. No pneumothorax. Atherosclerotic change of the aorta. There i s MVA catheter extending inferior to superior with the tip overlying the right lung apex correlate cl inically. IMPRESSION: Pleural-parenchymal changes most typical CHF stable.
[2022-11-07] MEDS ORDERED: CLOPIDOGREL 75 MG TAB PO STA (09:40)
[2022-11-07] MEDS: ALPRAZolam 0.25 MG TAB PO PRN (09:40)
[2022-11-07] MEDS: SACUBITRIL/VALSARTAN 24 MG-26 MG TABLET PO SCH (09:41)
--- NOTE | 2022-11-07 09:42 | P.PN ---
Subjective Progress Note Date: 11/07/22 The patient is a 77-year-old female with multiple comorbid conditions who presented to the hospital with shortness of breath, edema, and intrascapular pain. She was ruled in for non-ST elevated myocardial infarction and exacerbation of chronic systolic heart failure. Coronary angiogram showed severe triple-vessel disease with chronically occluded RCA, 50% left main disease, 80-90% mid LAD stenosis, 90% ostial left circumflex stenosis, and 90% in-stent restenosis of stent in the OM1. helpdesk administrator was notified and she underwent Impella placement for cardiogenic shock. Echocardiogram reveals EF at 20-25% with moderate MR and moderate TR. The patient has been deemed too high risk for surgical intervention, therefore she will undergo stenting with interventional cardiology The patient was interviewed and examined resting comfortably in bed. She currently denies any chest pain or chest pressure. She also denies any difficulty breathing. Her only complaint is constipation and mild abdominal discomfort. GENERAL: Ill-appearing, obese female. NECK: Supple without JVD or thyromegaly. LUNGS: Breath sounds diminished to auscultation bilaterally. Respiration equal and unlabored. No wheezes, rales or rhonchi. HEART: Regular rate and rhythm without murmurs, rubs or gallops. S1 and S2 heard. EXTREMITIES: Normal range of motion, mild generalized edema. No clubbing or cyanosis. Impella and [place] placement in the right groin TELEMETRY: Sinus rhythm with IVCD LABS: WBC 10.1, hemoglobin 11.9, hematocrit 35.5, platelet 116, sodium 130, potassium 3.6, BUN 39, creatinine 1.38, AST 53, ALT 29 IMPRESSION: Non-ST elevated myocardial infarction Severe coronary artery disease with prior stenting and in-stent restenosis Cardiogenic shock requiring high-dose pressors and Impella placement Valvular heart disease Diabetes mellitus Morbid obesity PLAN: Reload with 600 mg of clopidogrel Do not hold aspirin Nothing by mouth after midnight Plan for stenting of the left main, LAD, and left circumflex tomorrow with Dr. Osborne I am dictating on behalf of Dr Jeronimo Adams's history/physical and assessment/plan. Objective - Vital Signs Vital signs: Vital Signs Temp 98.2 F 11/07/22 04:00 Pulse 86 11/07/22 07:00 Resp 19 11/07/22 07:00 BP 119/83 11/07/22 07:00 Pulse Ox 97 11/07/22 07:00 FiO2 21 11/05/22 07:55 Intake & Output 11/06/22 11/07/22 11/07/22 18:59 06:59 18:59 Intake Total 052.541 1567.513 251.99 Output Total 3352 4030 460 Balance -2817.762 -2957.487 -208.01 Weight 130.1 kg Intake: IV 468 558 96 0.9 @ KVO 240 240 40 PRESSURE BAGS 99 18 Sodium Bicarb (1 Meq/ml) 228 219 38 12.5 ml In Dextrose 5% in Water 500 ml @ Per Protocol IV DIRECTED [facility] Rx#:[id number] Intake, IV Titration 66.238 234.513 155.99 Amount Heparin Sod,Pork in 0.45% 66.238 234.513 155.99 NaCl 25,000 unit In 0.45 % NaCl 1 250ml.bag @ 7. 874 UNITS/KG/HR 10 mls/hr IV .Q24H [facility] Rx#: [id number] Oral 280 Output: Urine 3352 4030 460 Other: Voiding Method Indwelling Catheter Indwelling Catheter ABP, PAP, CO, CI - Last Documented Arterial Blood Pressure 51/48 Pulmonary Artery Pressure 13/8 Cardiac Output 5.7 Cardiac Index 2.5 - Labs CBC & Chem 7: 11/07/22 02:30 11/07/22 02:30 Labs: Abnormal Lab Results - Last 24 Hours (Table) 11/06/22 11/06/22 11/06/22 Range/Units 11:22 13:24 14:45 Plt Count (150-450) k/uL APTT 45.7 H (22.0-30.0) sec Sodium (137-145) mmol/L Chloride (98-107) mmol/L Carbon Dioxide (22-30) mmol/L BUN (7-17) mg/dL Creatinine (0.52-1.04) mg/dL Glucose (74-99) mg/dL POC Glucose (mg/dL) 151 H (70-110) mg/dL Total Bilirubin (0.2-1.3) mg/dL AST (14-36) U/L Lactate Dehydrogenase 845 H (120-246) U/L Total Protein (6.3-8.2) g/dL Albumin (3.5-5.0) g/dL 11/06/22 11/06/22 11/06/22 Range/Units 16:38 20:15 22:05 Plt Count (150-450) k/uL APTT 57.1 H (22.0-30.0) sec Sodium (137-145) mmol/L Chloride (98-107) mmol/L Carbon Dioxide (22-30) mmol/L BUN (7-17) mg/dL Creatinine (0.52-1.04) mg/dL Glucose (74-99) mg/dL POC Glucose (mg/dL) 223 H 233 H (70-110) mg/dL Total Bilirubin (0.2-1.3) mg/dL AST (14-36) U/L Lactate Dehydrogenase (120-246) U/L Total Protein (6.3-8.2) g/dL Albumin (3.5-5.0) g/dL 11/06/22 11/07/22 11/07/22 Range/Units 22:16 02:30 02:30 Plt Count 116 L (150-450) k/uL APTT (22.0-30.0) sec Sodium 130 L (137-145) mmol/L Chloride 92 L (98-107) mmol/L Carbon Dioxide 35 H (22-30) mmol/L BUN 39 H (7-17) mg/dL Creatinine 1.38 H (0.52-1.04) mg/dL Glucose 182 H (74-99) mg/dL POC Glucose (mg/dL) (70-110) mg/dL Total Bilirubin 1.7 H (0.2-1.3) mg/dL AST 53 H (14-36) U/L Lactate Dehydrogenase 853 H (120-246) U/L Total Protein 5.5 L (6.3-8.2) g/dL Albumin 2.8 L (3.5-5.0) g/dL 11/07/22 11/07/22 11/07/22 Range/Units 06:13 06:48 08:33 Plt Count (150-450) k/uL APTT 75.0 H (22.0-30.0) sec Sodium (137-145) mmol/L Chloride (98-107) mmol/L Carbon Dioxide (22-30) mmol/L BUN (7-17) mg/dL Creatinine (0.52-1.04) mg/dL Glucose (74-99) mg/dL POC Glucose (mg/dL) 162 H 180 H (70-110) mg/dL Total Bilirubin (0.2-1.3) mg/dL AST (14-36) U/L Lactate Dehydrogenase (120-246) U/L Total Protein (6.3-8.2) g/dL Albumin (3.5-5.0) g/dL
[2022-11-07] MEDS: ISOSORBIDE MONONITRATE ER 60 MG TAB.ER.24H PO SCH (10:03)
[2022-11-07 11:14] LABS: Glucose,Whole Blood 203 mg/dL (70-110)
[2022-11-07] MEDS: OXYMETAZOLINE 0.05% NASL SPRAY 1 SPRAY BOTTLE NASAL SCH ×3 (11:30→22:45)
[2022-11-07 11:43] LABS: Basophils % (A) 0 %; Eosinophils # (A) 0.2 k/uL (0-0.7); Eosinophils % (A) 2 %; HCT 34.3 % (34.0-46.0); HGB 11.6 gm/dL (11.4-16.0); Lymphocytes # (A) 1.5 k/uL (1.0-4.8); Lymphocytes % (A) 12 %; MCH 30.9 pg (25.0-35.0); MCHC 33.7 g/dL (31.0-37.0); MCV 91.6 fL (80.0-100.0); Mean Platelet Volume 11.7; Monocytes # (A) 0.8 k/uL (0-1.0); Monocytes % (A) 6 %; Neutrophils # (A) 9.5 k/uL (1.3-7.7); Neutrophils % (A) 78 %; Platelet Count 105 k/uL (150-450); RBC 3.75 m/uL (3.80-5.40); RDW 13.6 % (11.5-15.5); WBC 12.1 k/uL (3.8-10.6)
--- NOTE | 2022-11-07 12:20 | P.PN ---
Subjective Progress Note Date: 11/07/22 I am seeing this patient in new consultation today 11/06/2022 in the intensive care unit after the patient presented with non-ST elevation CT and cardiogenic shock requiring Impella insertion. Patient is a 77-year-old white female with past medical history significant for multivessel coronary artery disease with multiple previous coronary stents. Most recent coronary stenting done in May, to the first obtuse marginal branch of the circumflex and main circumflex coronary artery. Patient also has significant history of hypertension, hyperlipidemia, diabetes mellitus type 2, obesity, and chronic kidney disease. Her primary care provider is a nurse practitioner, Mickie Saenz, out of Dr. Miller office in [place]. Patient presented back on October with complaints of intermittent shortness of breath and chest pressure that started on the preceding Sunday or Sunday. This was accompanied with increased lower extremity swelling. She does have chronic lymphedema. Troponins had been trending up at 0.98, 1.59, and 2.2. ECG on arrival showed sinus tachycardia with possible septal-lateral myocardial infarction of indeterminate age, and right axis deviation. She was diagnosed with a non-ST elevation CT. She was originally admitted to the cardiac stepdown unit. Echocardiogram demonstrated a reduced ejection fraction of 20-25%, moderate mitral regurgitation, and moderate tricuspid regurgitation. She was taken for cardiac catheterization yesterday, which demonstrated the patient's multivessel coronary artery disease including 80-90% stenosis involving the mid LAD, 50% stenosis of the distal left main, 90% stenosis of the circumflex, and 90% restenosis of the previously stented obtuse marginal branch, there was chronic RCA stenosis with collaterals. Patient developed shock like symptoms, had elevated left ventricular end-diastolic pressure of 35-40 mmHg, and a Impella assist device was inserted. She was subsequently transferred to the intensive care unit. At this point, we were consulted yesterday afternoon. Patient is currently lying supine in bed, on 2 L/m nasal cannula, in no acute distress. Most recent chest x-ray from October was consistent with congestive heart failure with cardiomegaly, pulmonary vascular congestion, and bilateral pleural effusions. She is being diuresed with Lasix 40 mg every 8 hours. The Impella is inserted through the right groin. Flow is at P9. There is a pulmonary artery catheter with cardiac output/cardiac index reading 5.5/2.4 respectively. Pulmonary artery pressures are 44/18. Blood pressure is hypotensive at 75/52 mmHg. Heart rhythm appears normal sinus around 70 bpm on bedside monitor. Cardiology has just started the patient on norepinephrine, which was initiated at 0.05 mcg/kg/m. Heparin is infusing per Impella protocol. PTT is therapeutic. Fibrinogen level 374 There was small amount of oozing from the Impella insertion site. No hematoma formation. Pulses were found bilaterally with Doppler. Most recent CBC from yesterday shows a WBC count 7.9, hemoglobin 11.4, hematocrit 33.3, platelets 142. BMP from yesterday shows sodium 133, potassium 3.5, chloride 101, serum bicarb 27, BUN 44, creatinine improved to 1.42, glucose 185. Potassium is being replaced per protocol. Currently, the plan is for evaluation by cardiothoracic services for possible surgical revascularization. Impella is going to remain in place for now. Her prognosis is currently guarded related to above-mentioned c omorbidities. She will be monitored in the intensive care unit. The patient is seen today 11/07/2022 in follow-up in the intensive care unit. She is currently resting in bed. Awake and alert in no acute distress. She is having issues with ongoing epistaxis. She's currently on room air. She does remain on a heparin drip. Normal saline at 30 MLS per hour. ImPella remains in place to the right groin. Pulmonary artery catheter and right groin. Cardiac output 5.7. Cardiac index 2.5. PA pressure 51/41. CVP 12. Mean arterial blood pressure 74. Chest x-ray reveals cardiomegaly with diffuse interstitial prominence suspect CHF. Left lower lobe consolidation and small bilateral effusions. White count 12.1. Hemoglobin 11.6. Platelets 105. Sodium 1:30. Potassium 3.9. Bicarb 35. BUN 39. Creatinine 1.38. Glucose 182. AST 53. ALT 21. The plan is return to the [facility] tomorrow. Remains on Lasix 80 mg IV every 8 hours. Currently in a -5.7 L balance. Objective - Vital Signs Vital signs: Vital Signs Temp 98.9 F 11/07/22 08:00 Pulse 78 11/07/22 10:00 Resp 16 11/07/22 10:00 BP 92/66 11/07/22 10:00 Pulse Ox 95 11/07/22 10:00 FiO2 21 11/05/22 07:55 Intake & Output 11/06/22 11/07/22 11/07/22 18:59 06:59 18:59 Intake Total 662.677 4190.513 377.99 Output Total 3352 4030 1410 Balance -2817.762 -2957.487 -1032.01 Weight 130.1 kg Intake: IV 468 558 222 0.9 @ KVO 240 240 110 PRESSURE BAGS 99 36 Sodium Bicarb (1 Meq/ml) 228 219 76 12.5 ml In Dextrose 5% in Water 500 ml @ Per Protocol IV DIRECTED ROHIT Rx#:[id number] Intake, IV Titration 66.238 234.513 155.99 Amount Heparin Sod,Pork in 0.45% 66.238 234.513 155.99 NaCl 25,000 unit In 0.45 % NaCl 1 250ml.bag @ 7. 874 UNITS/KG/HR 10 mls/hr IV .Q24H ROHIT Rx#: [id number] Oral 280 Output: Urine 3352 4030 1410 Other: Voiding Method Indwelling Catheter Indwelling Catheter ABP, PAP, CO, CI - Last Documented Arterial Blood Pressure 51/48 Pulmonary Artery Pressure 51/41 Cardiac Output 5.7 Cardiac Index 2.5 - Exam GENERAL EXAM: Alert, 77-year-old obese female, on room air, comfortable in no apparent distress. HEAD: Normocephalic and atraumatic EYES: Normal reaction of pupils, equal size. NOSE: Clear with pink turbinates. Currently with epistaxis and packing. THROAT: No erythema or exudates. NECK: No masses. Positive mild JVD CHEST: No chest wall deformity. LUNGS: Equal air entry with bibasilar inspiratory crackles. No conversational dyspnea or accessory muscle use.. CVS: S1 and S2 normal with no audible murmur, regular rhythm. No extra heart sounds ABDOMEN: Obese abdomen, no hepatosplenomegaly, active bowel sounds, no guarding or rigidity. SPINE: No scoliosis or deformity SKIN: No rashes, bilateral lower extremity chronic venous changes. CENTRAL NERVOUS SYSTEM: No focal deficits, tone is normal in all 4 extremities. EXTREMITIES: There is bilateral lower extremity 1-2+ pitting edema. Bilateral d orsal pedis pulses found with Doppler. Feet are warm. Movement and sensation intact. Impella LVAD inserted through right groin. No hematoma, there is a small amount of oozing from the insertion site. - Labs CBC & Chem 7: 11/07/22 10:45 11/07/22 09:09 Labs: Abnormal Lab Results - Last 24 Hours (Table) 11/06/22 11/06/22 11/06/22 Range/Units 13:24 14:45 16:38 WBC (3.8-10.6) k/uL RBC (3.80-5.40) m/uL Plt Count (150-450) k/uL Neutrophils # (1.3-7.7) k/uL APTT 45.7 H (22.0-30.0) sec Sodium (137-145) mmol/L Chloride (98-107) mmol/L Carbon Dioxide (22-30) mmol/L BUN (7-17) mg/dL Creatinine (0.52-1.04) mg/dL Glucose (74-99) mg/dL POC Glucose (mg/dL) 223 H (70-110) mg/dL Total Bilirubin (0.2-1.3) mg/dL AST (14-36) U/L Lactate Dehydrogenase 845 H (120-246) U/L Total Protein (6.3-8.2) g/dL Albumin (3.5-5.0) g/dL 11/06/22 11/06/22 11/06/22 Range/Units 20:15 22:05 22:16 WBC (3.8-10.6) k/uL RBC (3.80-5.40) m/uL Plt Count (150-450) k/uL Neutrophils # (1.3-7.7) k/uL APTT 57.1 H (22.0-30.0) sec Sodium (137-145) mmol/L Chloride (98-107) mmol/L Carbon Dioxide (22-30) mmol/L BUN (7-17) mg/dL Creatinine (0.52-1.04) mg/dL Glucose (74-99) mg/dL POC Glucose (mg/dL) 233 H (70-110) mg/dL Total Bilirubin (0.2-1.3) mg/dL AST (14-36) U/L Lactate Dehydrogenase 853 H (120-246) U/L Total Protein (6.3-8.2) g/dL Albumin (3.5-5.0) g/dL 11/07/22 11/07/22 11/07/22 Range/Units 02:30 02:30 06:13 WBC (3.8-10.6) k/uL RBC (3.80-5.40) m/uL Plt Count 116 L (150-450) k/uL Neutrophils # (1.3-7.7) k/uL APTT 75.0 H (22.0-30.0) sec Sodium 130 L (137-145) mmol/L Chloride 92 L (98-107) mmol/L Carbon Dioxide 35 H (22-30) mmol/L BUN 39 H (7-17) mg/dL Creatinine 1.38 H (0.52-1.04) mg/dL Glucose 182 H (74-99) mg/dL POC Glucose (mg/dL) (70-110) mg/dL Total Bilirubin 1.7 H (0.2-1.3) mg/dL AST 53 H (14-36) U/L Lactate Dehydrogenase (120-246) U/L Total Protein 5.5 L (6.3-8.2) g/dL Albumin 2.8 L (3.5-5.0) g/dL 11/07/22 11/07/22 11/07/22 Range/Units 06:48 08:33 09:09 WBC (3.8-10.6) k/uL RBC (3.80-5.40) m/uL Plt Count (150-450) k/uL Neutrophils # (1.3-7.7) k/uL APTT (22.0-30.0) sec Sodium (137-145) mmol/L Chloride (98-107) mmol/L Carbon Dioxide (22-30) mmol/L BUN (7-17) mg/dL Creatinine (0.52-1.04) mg/dL Glucose (74-99) mg/dL POC Glucose (mg/dL) 162 H 180 H (70-110) mg/dL Total Bilirubin (0.2-1.3) mg/dL AST (14-36) U/L Lactate Dehydrogenase 893 H (120-246) U/L Total Protein (6.3-8.2) g/dL Albumin (3.5-5.0) g/dL 11/07/22 11/07/22 Range/Units 10:45 11:12 WBC 12.1 H (3.8-10.6) k/uL RBC 3.75 L (3.80-5.40) m/uL Plt Count 105 L (150-450) k/uL Neutrophils # 9.5 H (1.3-7.7) k/uL APTT (22.0-30.0) sec Sodium (137-145) mmol/L Chloride (98-107) mmol/L Carbon Dioxide (22-30) mmol/L BUN (7-17) mg/dL Creatinine (0.52-1.04) mg/dL Glucose (74-99) mg/dL POC Glucose (mg/dL) 203 H (70-110) mg/dL Total Bilirubin (0.2-1.3) mg/dL AST (14-36) U/L Lactate Dehydrogenase (120-246) U/L Total Protein (6.3-8.2) g/dL Albumin (3.5-5.0) g/dL Assessment and Plan Assessment: Non-ST elevation myocardial infarction, status post heart catheterization on 11/05 demonstrating multivessel coronary artery disease. Cardiogenic shock, status post insertion of a Impella catheter on 11/05. Also, requiring low-dose vasopressors in the form of norepinephrine. Improved and pressors are off. Acute hypoxemic respiratory failure, improved, currently on room air, secondary to exacerbation of systolic congestive heart failure. Most recent chest x-ray from November 02 was consistent with congestive heart failure with cardiomegaly, pulmonary vascular congestion, and bilateral pleural effusions. Echocardiogram demonstrated a reduced ejection fraction of 20-25%, moderate mitral regurgitation, and moderate tricuspid regurgitation. Epistaxis secondary to blood thinners Acute on chronic kidney disease, improving History of coronary artery disease with multiple previous PCI and coronary stenting with previous in-stent restenosis History of hypertension Hyperlipidemia Diabetes mellitus type 2 Chronic kidney disease stage III Morbid obesity, with a BMI of 54.6 kg/m Lifelong nonsmoker Plan: The patient was seen and evaluated Chest x-ray, labs and medications reviewed STS score reveals operative mortality risk 51.3%. The plan is to continue with the Impella Return to the [facility] tomorrow for stent placements ENT consult for epistaxis Condition remains guarded We'll continue to monitor her closely here in the intensive care unit I have personally seen and examined the patient, performed the documentation and the assessment and plan as written. Number of minutes spent on the visit: 10.
--- NOTE | 2022-11-07 12:43 | P.PN ---
Progress Note - Text Progress Note Date: 11/07/22 Hospital course. follows with Dr. Miller. Dba Dr. Krause. .77 years old female with past medical history of History of coronary artery disease status post stenting, diabetes mellitus, hypertension, hyperlipidemia Patient presents because of worsening dyspnea over one week with possible elements of orthopnea. Also patient reports worsening of leg swelling. Occasional coughing. Occasional chest pain when lying down, last episode was 2 days ago currently patient denies any chest pain or discomfort and epigastric pain or neck pain. She does not look in respiratory distress when she talks easily and she does not use accessory respiratory muscles. She denies any urinary GI or neurological specific symptoms to me. She denies smoking alcohol or illicit drugs. Her PCP is Dr. Miller and her full stack engineer is Dr. Krause Patient is mildly tachycardic and tachypneic labs reviewed, CBC, INR within the reference range. Creatinine is elevated 1.4, and 1.3 which is at or close to baseline of 1.2-1.4. mildly elevated lactic acid came back to normal. Troponin 1.5, 2.2 Chest x-ray: Cardiomegaly with pulmonary vascular congestion and bilateral pleural effusion. Possible congestive heart failure Echocardiogram from : Ejection fraction of 35-40% with dilated left ventricle with severe LV dysfunction and 2+ mitral regurgitation 11/04: Patient seen and evaluated bedside, home medications reviewed. Started on high-dose correctional insulin as well as Lantus. Aldactone discontinued. Continue patient on IV Lasix, continue IV heparin planned for cardiac catheterization 11/05: Patient seen and evaluated bedside. Patient is status post cardiac catheterization transferred to medical ICU. Status post impela placement, patient transferred to medical ICU. Cardiology and MICU team consulted and notified about new consult. Patient evaluated alert and oriented times 3.Care plan discussed with family denies of chest pain November 06: I assumed care of the patient today. ICU. Laying in bed. No chest pain. Currently on Impella. 2 L dose cannula. Patient this afternoon is nothing by mouth. High risk for surgery, pending decision as per cardiology. For further intervention. This admission was found over in-stent stenosis of OM1. November 07: ICU. Had a severe episode of epistaxis this morning. ENT was consulted. Nasal packing. We will use nasal cannula through the polyps to keep the oxygen up. Currently plan for patient to go back to the [facility] omorrow. Eating. Impella P-8. IV heparin Past medical history to include: Diabetes, hypertension, hyperlipidemia, IL in 2010, CAD with stent in 2018 Social history: . No smoking or alcohol Physical examination: VITAL SIGNS: 98.9, 78, 19, 92/66, 95% room air GENERAL: BMI 56.2, laying in bed, awake, tired. Attached to Impella EYES: Pupils equal. Conjunctiva normal. HEENT: External appearance of nose and ears normal, oral cavity grossly normal. NECK: JVD not raised; masses not palpable. HEART: First and second heart sounds are normal; some edema. LUNGS: Respiratory rate normal; decreased breath sound. ABDOMEN: Soft, nontender, liver spleen not palpable, no masses palpable. PSYCH: Alert and oriented x3; mood and affect anxious MUSCULOSKELETAL:No Clubbing/cyanosis;muscles-grossly intact. OA INVESTIGATIONS, reviewed in the clinical context: November 07: White count 12.1 hemoglobin 11.6 platelets 105 November 06: White count 7.8 hemoglobin 11.8 platelets 131 sodium 135 potassium 4.2 BUN 44 creatinine 1.47 2-D echocardiogram [limited close bracket: EF 20%. She seemingly reduced LV function. Previous labs: Creatinine 1.22 on May 2022 Assessment and plan: -Acute non-Q-wave IL. Known CAD. Aspirin, IV heparin, beta darian - known 3-vessel CAD with chronically occluded RCA, with stents -Severe epistaxis. Possibly precipitated by IV heparin and nasal cannula. Seen by Dr. Jayson Resendiz. Nasal packing. -Acute on chronic congestive diastolic heart failure of systolic dysfunction, EF 20 %, ischemic cardiomyopathy: Not improving. Impella placed-November 05. Coreg. Entresto. Zaroxolyn. IV Lasix 80 mg every 8. -Diabetes mellitus type 2, chronically on insulin Levemir 30 mg subcu every 12. follow Accu-Cheks with sliding scale -Essential hypertension Coreg, Entresto -Acute kidney injury, ATN likely cardiorenal Creatinine was 1.2 in May 2022 -Chronic kidney disease multifactorial, stage III -Morbid obesity BMI 56.2 Weight loss measures. Follow with PCP. -Full code Nasal packing for epistaxis. IV heparin. Plan for patient to go to [facility] tomorrow. Continue diuretics.
[2022-11-07] MEDS: SODIUM BICARB (1 MEQ/ML) 12.5 ML in DEXTROSE 5% IN WATER 500 ML IV SCH ×2 (13:00)
[2022-11-07] MEDS: HEPARIN SOD,PORK IN 0.45% NACL 25,000 UNIT in 0.45% NACL 1 250ML.BAG IV SCH (13:52)
[2022-11-07] MEDS: CLOPIDOGREL 75 MG TAB PO SCH (15:44)
[2022-11-07 16:03] LABS: Partial Thromboplastin Time 41.1 sec (22.0-30.0)
[2022-11-07 16:17] LABS: African American GFR (CKD) 38 (>60 ml/min/1.73 sqM); Blood Urea Nitrogen 44 mg/dL (7-17); Calcium 8.8 mg/dL (8.4-10.2); Chloride 88 mmol/L (98-107); Glucose 265 mg/dL (74-99); Non-African American GFR(CKD) 33 (>60 ml/min/1.73 sqM); Potassium 3.7 mmol/L (3.5-5.1); Sodium 130 mmol/L (137-145)
[2022-11-07 16:25] LABS: Anion Gap 9 mmol/L; Carbon Dioxide 33 mmol/L (22-30)
[2022-11-07 16:27] LABS: Glucose,Whole Blood 381 mg/dL (70-110)
[2022-11-07 16:43] LABS: Glucose,Whole Blood 385 mg/dL (70-110)
[2022-11-07] MEDS: SENNOSIDES 8.6 MG TAB PO PRN (16:50)
[2022-11-07 20:13] LABS: Glucose,Whole Blood 289 mg/dL (70-110)
[2022-11-07] MEDS: ACETAMINOPHEN TAB 325 MG TAB PO PRN (20:18)
[2022-11-07 23:03] LABS: Basophils # (A) 0.1 k/uL (0-0.2); Basophils % (A) 0 %; Eosinophils # (A) 0.2 k/uL (0-0.7); Eosinophils % (A) 1 %; HCT 35.8 % (34.0-46.0); HGB 12.5 gm/dL (11.4-16.0); Lymphocytes # (A) 1.5 k/uL (1.0-4.8); Lymphocytes % (A) 11 %; MCH 32.1 pg (25.0-35.0); MCHC 35.1 g/dL (31.0-37.0); MCV 91.4 fL (80.0-100.0); Mean Platelet Volume 11.4; Monocytes % (A) 8 %; Neutrophils # (A) 10.3 k/uL (1.3-7.7); Neutrophils % (A) 79 %; Platelet Count 109 k/uL (150-450); RBC 3.91 m/uL (3.80-5.40); RDW 13.1 % (11.5-15.5); WBC 13.2 k/uL (3.8-10.6)
[2022-11-07 23:19] LABS: Partial Thromboplastin Time 49.4 sec (22.0-30.0)
[2022-11-08] MEDS: SODIUM CHLORIDE 0.9% 1,000 ML in EMPTY BAG 1 BAG IV SCH ×3 (00:22→21:47)
[2022-11-08] MEDS: NOREPINEPHRINE 4 MG in SODIUM CHLORIDE 0.9% 250 ML IV SCH ×2 (01:06→17:39)
[2022-11-08] MEDS: ACETAMINOPHEN TAB 325 MG TAB PO PRN ×4 (01:45→17:38)
--- NOTE | 2022-11-08 02:25 | CONS ---
CONSULTATION REASON FOR CONSULTATION: Epistaxis. HISTORY OF PRESENT ILLNESS: This patient is a very pleasant 77-year-old obese female, who was originally admitted to [facility] for evaluation/treatment of complaints of shortness of breath and swelling of the ankles. The patient has a history of having severe coronary artery disease as well as congestive heart failure, vascular disease, type 1 diabetes mellitus, hypertension, and hypercholesterolemia. In the ICU on the a.m. of 09/06/2022, the patient developed left-sided nasal bleeding at approximately 7:00 a.m. My office was consulted because I was the ENT physician motion picture scene builder. When I arrived at the ICU, the patient did not appear to be actively bleeding. However, she stated that both nostrils were completely plugged, most likely with blood clots, and that she was not able to breathe through her nose. She was having difficulty swallowing. She states that she has had minor nosebleeds in the past, but she has been able to stop these by applying pressure. The patient has been admitted for worsening orthopnea and swelling of the legs (lymphedema) and is scheduled for further stent placement in the a.m. PAST MEDICAL HISTORY: Reveals the patient has allergies to penicillin. HOME MEDICATIONS: Include Coreg, Imdur, Entresto, aldactone, Nitrostat, Plavix, baby aspirin daily, Lasix, Lipitor, and insulin. REVIEW OF SYSTEMS: CARDIOVASCULAR: Positive for hypertension, congestive heart failure, coronary artery disease, and ASHD. METABOLIC/ENDOCRINE: Positive for type 1 diabetes mellitus and hypercholesterolemia. Remainder of the review of systems is essentially unremarkable. PHYSICAL EXAMINATION: GENERAL: The patient is a very pleasant 77-year-old female, who was alert and cooperative. HEENT: The patient is normocephalic. Tympanic membranes are normal. Middle ear spaces are free of any fluid or infection. Pupils equal, round, and reactive to light and accommodation. Intranasal examination reveals the patient has clots in both nares. At the time of the examination of the nose, both of them nares were suctioned free of all clots using the wall suction and also by allowing the patient to simply blow nose and expel as much of the clots as possible. Once this was accomplished, the patient was able to breathe. I then applied several puffs of Afrin nasal spray into the right and left nostril respectively. Further inspection intranasally did not reveal any evidence of any active bleeding. Most likely, the patient is bleeding posteriorly on the left side. The bleeding has a tendency to start on one side and once that particular side becomes clotted, the bleeding will then divert around the back portion of the nose and come out the opposite side. Examination of oropharynx reveals that after having applied the Afrin nasal spray, the patient did not have any bleeding down the posterior pharynx. Palpation of the neck, cranial nerves II through XII, the remainder of the head and neck exam is unremarkable. CHEST/CARDIOVASCULAR: (Roughly limited). Both lung mcpherson appear to be clear to percussion and auscultation. The patient is in regular sinus rhythm. EXTREMITIES: Lower extremities are noted to be quite edematous. The remainder of the physical exam is limited. ASSESSMENT: Left posterior epistaxis. PLAN: At this point, I would like to avoid placing any packing in the patient's nose. However, I have advised nursing staff that should the patient start bleeding, they may apply several sprays of the Afrin nasal spray to see if this will stop the bleeding. If that does not stop the bleeding, then they should call A team, who has the facilities and ability to insert nasal packing (Rhinostat balloon). I am going to order that the nurses put 2 or 3 puffs of Afrin nasal spray in each nostril 3 times daily in an effort to keep the nasal blood vessels vasoconstricted. Most otolaryngologists use silver nitrate to cauterize only the very superficial minor anterior nasal bleeding. It is found in the past to be very ineffective and it is totally ineffective with respect to posterior nasal bleeds which one cannot see. In general, younger patients tend to bleed more anteriorly whereas older patients, especially those with vascular disease, are more prone to bleeding posteriorly. I would anticipate that she will continue the Afrin nasal spray t.i.d. even after her surgical procedure tomorrow and she should probably continue this as long as she is in the hospital. Prior to her discharge from the hospital, I will give her instructions with regard to whether or not she needs to maintain using this for a limited period of time once she has been discharged. I want to take this opportunity to thank you for allowing me to assist in the care of this patient. I will continue to see her on a daily basis and monitor and evaluate the status of her epistaxis. If I can be of any further assistance, please feel free to call my office. MMODL / IJN: [id number] / KELLIE
[2022-11-08 04:51] LABS: Basophils % (A) 0 %; Eosinophils # (A) 0.3 k/uL (0-0.7); Eosinophils % (A) 2 %; HCT 36.3 % (34.0-46.0); HGB 12.6 gm/dL (11.4-16.0); Lymphocytes # (A) 1.8 k/uL (1.0-4.8); Lymphocytes % (A) 13 %; MCH 31.6 pg (25.0-35.0); MCHC 34.6 g/dL (31.0-37.0); MCV 91.3 fL (80.0-100.0); Mean Platelet Volume 11.1; Monocytes # (A) 0.9 k/uL (0-1.0); Monocytes % (A) 7 %; Neutrophils # (A) 10.5 k/uL (1.3-7.7); Neutrophils % (A) 77 %; Platelet Count 108 k/uL (150-450); RBC 3.98 m/uL (3.80-5.40); RDW 13.2 % (11.5-15.5); WBC 13.6 k/uL (3.8-10.6)
[2022-11-08] MEDS: HEPARIN SOD,PORK IN 0.45% NACL 25,000 UNIT in 0.45% NACL 1 250ML.BAG IV SCH (05:30)
[2022-11-08 06:29] LABS: ALT 21 U/L (4-34); AST 68 U/L (14-36); African American GFR (CKD) 40 (>60 ml/min/1.73 sqM); Alkaline Phosphatase 91 U/L (38-126); Anion Gap 7 mmol/L; Blood Urea Nitrogen 46 mg/dL (7-17); Calcium 8.8 mg/dL (8.4-10.2); Chloride 85 mmol/L (98-107); Glucose 126 mg/dL (74-99); Non-African American GFR(CKD) 34 (>60 ml/min/1.73 sqM); Potassium 3.3 mmol/L (3.5-5.1); Sodium 132 mmol/L (137-145); Total Bilirubin 2.3 mg/dL (0.2-1.3); Total Protein 5.7 g/dL (6.3-8.2)
[2022-11-08 06:36] LABS: Carbon Dioxide 40 mmol/L (22-30); LDH 1334 U/L (120-246)
[2022-11-08 06:50] LABS: Glucose,Whole Blood 134 mg/dL (70-110)
[2022-11-08] MEDS: POTASSIUM BICARBONATE/CIT AC 20 MEQ TABLET.EFF NG-TUBE SCH ×2 (06:52→08:46)
[2022-11-08] MEDS ORDERED: HEPARIN SODIUM,PORCINE 10,000 UNIT in SODIUM CHLORIDE 0.9% 1,000 ML IRRIGATION PRN (07:00)
[2022-11-08] MEDS ORDERED: HEPARIN SODIUM,PORCINE (1 ML) 2,500 UNIT in SODIUM CHLORIDE 0.9% 250 ML IRRIGATION PRN (07:00)
[2022-11-08] MEDS: INSULIN ASPART (NovoLOG) 100 UNIT/ML VIAL SQ SCH ×4 (08:03→21:42)
[2022-11-08] MEDS: INSULIN DETEMIR (LEVEMIR) 100 UNIT/ML SYR SQ SCH ×2 (08:16→21:42)
--- NOTE | 2022-11-08 08:31 | XR ---
EXAMINATION TYPE: XR chest 1V portable DATE OF EXAM: 11/08/2022 COMPARISON: 11/07/2022 HISTORY: Line placement TECHNIQUE: Single frontal view of the chest is obtained. FINDINGS: Cardiomegaly with diffuse interstitial prominence correlate for CHF. Left lower lobe conso lidation and small bilateral effusions. No pneumothorax. Atherosclerotic change of the aorta. There i s a catheter extending inferior to superior with the tip overlying the right lung apex correlate clin ically. Prominent moira may reflect enlarged pulmonary arteries. IMPRESSION: Stable pleural parenchymal changes most significant.
[2022-11-08] MEDS ORDERED: ONDANSETRON 4 MG/2 ML VIAL IVP PRN (08:38)
[2022-11-08] MEDS: ASCORBIC ACID 500 MG TAB PO SCH (08:46)
[2022-11-08] MEDS: carvediloL 3.125 MG TAB PO SCH ×2 (08:46→21:42)
[2022-11-08] MEDS: ATORVASTATIN 80 MG TAB PO SCH (08:46)
[2022-11-08] MEDS: CHOLECALCIFEROL 25 MCG (1000 IU) TABLET PO SCH (08:46)
[2022-11-08] MEDS: ASPIRIN 81 MG PO SCH (08:46)
[2022-11-08] MEDS: ISOSORBIDE MONONITRATE ER 60 MG TAB.ER.24H PO SCH (08:46)
[2022-11-08] MEDS: SACUBITRIL/VALSARTAN 24 MG-26 MG TABLET PO SCH (08:46)
[2022-11-08] MEDS: PANTOPRAZOLE 40 MG/10 ML VIAL IVP SCH (08:47)
[2022-11-08] MEDS: metOLazone 5 MG TAB PO SCH (08:47)
[2022-11-08] MEDS: OXYMETAZOLINE 0.05% NASL SPRAY 1 SPRAY BOTTLE NASAL SCH ×3 (08:47→22:09)
[2022-11-08] MEDS: NYSTATIN 100,000 UNIT/GM POWD 15 GM TOPICAL SCH ×2 (08:47→21:42)
[2022-11-08] MEDS: FUROSEMIDE 10 MG/ML 4 ML VIAL IV SCH ×2 (09:30→16:43)
--- NOTE | 2022-11-08 09:33 | P.PN ---
Subjective Progress Note Date: 11/08/22 The patient is a 77-year-old female with multiple comorbid conditions who presented to the hospital with shortness of breath, edema, and intrascapular pain. She was ruled in for non-ST elevated myocardial infarction and exacerbation of chronic systolic heart failure. Coronary angiogram showed severe triple-vessel disease with chronically occluded RCA, 50% left main disease, 80-90% mid LAD stenosis, 90% ostial left circumflex stenosis, and 90% in-stent restenosis of stent in the OM1. insulation estimator was notified and she underwent Impella placement for cardiogenic shock. Echocardiogram reveals EF at 20-25% with moderate MR and moderate TR. The patient has been deemed too high risk for surgical intervention, therefore she will undergo stenting with interventional cardiology. Yesterday the patient had severe epistaxis after receiving her antiplatelet therapy. ENT is following. The patient was interviewed and examined resting comfortably in bed. She currently denies any chest pain or chest pressure. She also denies any difficulty breathing. Her only complaint is constipation and mild abdominal discomfort. GENERAL: Ill-appearing, obese female. NECK: Supple without JVD or thyromegaly. LUNGS: Breath sounds diminished to auscultation bilaterally. Respiration equal and unlabored. No wheezes, rales or rhonchi. HEART: Regular rate and rhythm without murmurs, rubs or gallops. S1 and S2 heard. EXTREMITIES: Normal range of motion, mild generalized edema. No clubbing or cy anosis. Impella and [place] placement in the right groin TELEMETRY: Sinus rhythm with IVCD LABS: WBC 13.6, hemoglobin 12.6, hematocrit 36.3, platelet 108, sodium 132, potassium 3.3, BUN 46, creatinine 1.47, AST 68, ALT 21 IMPRESSION: Non-ST elevated myocardial infarction Severe coronary artery disease with prior stenting and in-stent restenosis Cardiogenic shock requiring high-dose pressors and Impella placement Valvular heart disease Diabetes mellitus Morbid obesity PLAN: Supplemental actuates per protocol Proceed with stenting of the left main, LAD, and left circumflex with Dr. Osborne I am dictating on behalf of Dr Jeronimo Adams's history/physical and assessment/plan. Objective - Vital Signs Vital signs: Vital Signs Temp 99.8 F H 11/08/22 08:00 Pulse 90 11/08/22 09:00 Resp 30 H 11/08/22 09:00 BP 128/78 11/08/22 09:00 Pulse Ox 99 11/08/22 09:00 FiO2 35 11/08/22 08:00 Intake & Output 11/07/22 11/08/22 11/08/22 18:59 06:59 18:59 Intake Total 1013.532 889.289 57 Output Total 4635 2770 225 Balance -3621.468 -1880.711 -168 Weight 125.7 kg Intake: IV 684 684 57 0.9 @ KVO 350 360 30 PRESSURE BAGS 108 108 9 Sodium Bicarb (1 Meq/ml) 226 216 18 12.5 ml In Dextrose 5% in Water 500 ml @ Per Protocol IV DIRECTED R[facility] Rx#:[id number] Intake, IV Titration 329.532 205.289 Amount Heparin Sod,Pork in 0.45% 294.711 205.289 NaCl 25,000 unit In 0.45 % NaCl 1 250ml.bag @ 7. 874 UNITS/KG/HR 10 mls/hr IV .Q24H [facility] Rx#: [id number] Norepinephrine 4 mg In 34.821 Sodium Chloride 0.9% 250 ml @ 0.03 MCG/KG/MIN 15. 476 mls/hr IV .[id number] [facility] Rx#:[id number] Output: Urine 4635 2770 225 Other: Voiding Method Indwelling Catheter Indwelling Catheter ABP, PAP, CO, CI - Last Documented Arterial Blood Pressure 101/84 Pulmonary Artery Pressure 61/55 Cardiac Output 5.7 Cardiac Index 2.5 - Labs CBC & Chem 7: 11/08/22 04:44 11/08/22 04:44 Labs: Abnormal Lab Results - Last 24 Hours (Table) 11/07/22 11/07/22 11/07/22 Range/Units 09:09 10:45 11:12 WBC 12.1 H (3.8-10.6) k/uL RBC 3.75 L (3.80-5.40) m/uL Plt Count 105 L (150-450) k/uL Neutrophils # 9.5 H (1.3-7.7) k/uL APTT (22.0-30.0) sec Fibrinogen (200-500) mg/dL Sodium (137-145) mmol/L Potassium (3.5-5.1) mmol/L Chloride (98-107) mmol/L Carbon Dioxide (22-30) mmol/L BUN (7-17) mg/dL Creatinine (0.52-1.04) mg/dL Glucose (74-99) mg/dL POC Glucose (mg/dL) 203 H (70-110) mg/dL Total Bilirubin (0.2-1.3) mg/dL AST (14-36) U/L Lactate Dehydrogenase 893 H (120-246) U/L Total Protein (6.3-8.2) g/dL Albumin (3.5-5.0) g/dL 11/07/22 11/07/22 11/07/22 Range/Units 13:40 15:18 15:44 WBC (3.8-10.6) k/uL RBC (3.80-5.40) m/uL Plt Count (150-450) k/uL Neutrophils # (1.3-7.7) k/uL APTT 41.1 H (22.0-30.0) sec Fibrinogen (200-500) mg/dL Sodium 130 L (137-145) mmol/L Potassium (3.5-5.1) mmol/L Chloride 88 L (98-107) mmol/L Carbon Dioxide 33 H (22-30) mmol/L BUN 44 H (7-17) mg/dL Creatinine 1.53 H (0.52-1.04) mg/dL Glucose 265 H (74-99) mg/dL POC Glucose (mg/dL) (70-110) mg/dL Total Bilirubin (0.2-1.3) mg/dL AST (14-36) U/L Lactate Dehydrogenase 939 H (120-246) U/L Total Protein (6.3-8.2) g/dL Albumin (3.5-5.0) g/dL 11/07/22 11/07/22 11/07/22 Range/Units 16:26 16:42 20:12 WBC (3.8-10.6) k/uL RBC (3.80-5.40) m/uL Plt Count (150-450) k/uL Neutrophils # (1.3-7.7) k/uL APTT (22.0-30.0) sec Fibrinogen (200-500) mg/dL Sodium (137-145) mmol/L Potassium (3.5-5.1) mmol/L Chloride (98-107) mmol/L Carbon Dioxide (22-30) mmol/L BUN (7-17) mg/dL Creatinine (0.52-1.04) mg/dL Glucose (74-99) mg/dL POC Glucose (mg/dL) 381 H 385 H 289 H (70-110) mg/dL Total Bilirubin (0.2-1.3) mg/dL AST (14-36) U/L Lactate Dehydrogenase (120-246) U/L Total Protein (6.3-8.2) g/dL Albumin (3.5-5.0) g/dL 11/07/22 11/07/22 11/07/22 Range/Units 20:13 22:45 22:56 WBC 13.2 H (3.8-10.6) k/uL RBC (3.80-5.40) m/uL Plt Count 109 L (150-450) k/uL Neutrophils # 10.3 H (1.3-7.7) k/uL APTT 49.4 H (22.0-30.0) sec Fibrinogen (200-500) mg/dL Sodium (137-145) mmol/L Potassium (3.5-5.1) mmol/L Chloride (98-107) mmol/L Carbon Dioxide (22-30) mmol/L BUN (7-17) mg/dL Creatinine (0.52-1.04) mg/dL Glucose (74-99) mg/dL POC Glucose (mg/dL) (70-110) mg/dL Total Bilirubin (0.2-1.3) mg/dL AST (14-36) U/L Lactate Dehydrogenase 1156 H (120-246) U/L Total Protein (6.3-8.2) g/dL Albumin (3.5-5.0) g/dL 11/08/22 11/08/22 11/08/22 Range/Units 04:44 04:44 06:00 WBC 13.6 H (3.8-10.6) k/uL RBC (3.80-5.40) m/uL Plt Count 108 L (150-450) k/uL Neutrophils # 10.5 H (1.3-7.7) k/uL APTT (22.0-30.0) sec Fibrinogen 510 H (200-500) mg/dL Sodium 132 L (137-145) mmol/L Potassium 3.3 L (3.5-5.1) mmol/L Chloride 85 L (98-107) mmol/L Carbon Dioxide 40 H (22-30) mmol/L BUN 46 H (7-17) mg/dL Creatinine 1.47 H (0.52-1.04) mg/dL Glucose 126 H (74-99) mg/dL POC Glucose (mg/dL) (70-110) mg/dL Total Bilirubin 2.3 H (0.2-1.3) mg/dL AST 68 H (14-36) U/L Lactate Dehydrogenase 1334 H (120-246) U/L Total Protein 5.7 L (6.3-8.2) g/dL Albumin 3.0 L (3.5-5.0) g/dL 11/08/22 11/08/22 Range/Units 06:48 07:12 WBC (3.8-10.6) k/uL RBC (3.80-5.40) m/uL Plt Count (150-450) k/uL Neutrophils # (1.3-7.7) k/uL APTT 54.5 H (22.0-30.0) sec Fibrinogen (200-500) mg/dL Sodium (137-145) mmol/L Potassium (3.5-5.1) mmol/L Chloride (98-107) mmol/L Carbon Dioxide (22-30) mmol/L BUN (7-17) mg/dL Creatinine (0.52-1.04) mg/dL Glucose (74-99) mg/dL POC Glucose (mg/dL) 134 H (70-110) mg/dL Total Bilirubin (0.2-1.3) mg/dL AST (14-36) U/L Lactate Dehydrogenase (120-246) U/L Total Protein (6.3-8.2) g/dL Albumin (3.5-5.0) g/dL
[2022-11-08] MEDS: CLOPIDOGREL 75 MG TAB PO SCH (09:42)
[2022-11-08] MEDS ORDERED: CLOPIDOGREL 75 MG TAB PO STA (09:48)
[2022-11-08] MEDS: SODIUM BICARB (1 MEQ/ML) 12.5 ML in DEXTROSE 5% IN WATER 500 ML IV SCH ×2 (11:24)
[2022-11-08 11:33] LABS: Glucose,Whole Blood 288 mg/dL (70-110)
[2022-11-08] MEDS ORDERED: LIDOCAINE 1% INJ 10MG/ML (20 ML MDV) ONE ×2 (12:35→15:47)
[2022-11-08] MEDS ORDERED: VERAPAMIL 2.5 MG/ML 2 ML AMP ONE (12:35)
[2022-11-08] MEDS ORDERED: IV FLUID CONTINUATION 1,000 ML IV ONE (13:00)
[2022-11-08] MEDS ORDERED: fentaNYL (PF) 50 MCG/ML 2 ML AMP ONE ×2 (13:13→16:16)
[2022-11-08] MEDS ORDERED: LIDOCAINE 1% INJ 10MG/ML (20 ML MDV) SQ ONE ×2 (13:16→13:18)
[2022-11-08] MEDS: MIDAZOLAM 2 MG/2 ML VIAL IVP ONE ×3 (13:17→14:39)
[2022-11-08] MEDS: fentaNYL (PF) 50 MCG/ML 2 ML AMP IVP ONE ×3 (13:17→14:59)
[2022-11-08] MEDS ORDERED: HEPARIN SODIUM 1,000 UN/ML (10ML VL) ONE ×2 (13:23→15:16)
[2022-11-08] MEDS: HEPARIN SODIUM 1,000 UN/ML (10ML VL) IV ONE ×5 (13:24→14:53)
--- NOTE | 2022-11-08 13:39 | P.PN ---
Subjective Progress Note Date: 11/08/22 I am seeing this patient in new consultation today 11/06/2022 in the intensive care unit after the patient presented with non-ST elevation CT and cardiogenic shock requiring Impella insertion. Patient is a 77-year-old white female with past medical history significant for multivessel coronary artery disease with multiple previous coronary stents. Most recent coronary stenting done in May, to the first obtuse marginal branch of the circumflex and main circumflex coronary artery. Patient also has significant history of hypertension, hyperlipidemia, diabetes mellitus type 2, obesity, and chronic kidney disease. Her primary care provider is a nurse practitioner, Mickie Saenz, out of Dr. Miller office in [place]. Patient presented back on October with complaints of intermittent shortness of breath and chest pressure that started on the preceding Sunday or Sunday. This was accompanied with increased lower extremity swelling. She does have chronic lymphedema. Troponins had been trending up at 0.98, 1.59, and 2.2. ECG on arrival showed sinus tachycardia with possible septal-lateral myocardial infarction of indeterminate age, and right axis deviation. She was diagnosed with a non-ST elevation CT. She was originally admitted to the cardiac stepdown unit. Echocardiogram demonstrated a reduced ejection fraction of 20-25%, moderate mitral regurgitation, and moderate tricuspid regurgitation. She was taken for cardiac catheterization yesterday, which demonstrated the patient's multivessel coronary artery disease including 80-90% stenosis involving the mid LAD, 50% stenosis of the distal left main, 90% stenosis of the circumflex, and 90% restenosis of the previously stented obtuse marginal branch, there was chronic RCA stenosis with collaterals. Patient developed shock like symptoms, had elevated left ventricular end-diastolic pressure of 35-40 mmHg, and a Impella assist device was inserted. She was subsequently transferred to the intensive care unit. At this point, we were consulted yesterday afternoon. Patient is currently lying supine in bed, on 2 L/m nasal cannula, in no acute distress. Most recent chest x-ray from October was consistent with congestive heart failure with cardiomegaly, pulmonary vascular congestion, and bilateral pleural effusions. She is being diuresed with Lasix 40 mg every 8 hours. The Impella is inserted through the right groin. Flow is at P9. There is a pulmonary artery catheter with cardiac output/cardiac index reading 5.5/2.4 respectively. Pulmonary artery pressures are 44/18. Blood pressure is hypotensive at 75/52 mmHg. Heart rhythm appears normal sinus around 70 bpm on bedside monitor. Cardiology has just started the patient on norepinephrine, which was initiated at 0.05 mcg/kg/m. Heparin is infusing per Impella protocol. PTT is therapeutic. Fibrinogen level 374 There was small amount of oozing from the Impella insertion site. No hematoma formation. Pulses were found bilaterally with Doppler. Most recent CBC from yesterday shows a WBC count 7.9, hemoglobin 11.4, hematocrit 33.3, platelets 142. BMP from yesterday shows sodium 133, potassium 3.5, chloride 101, serum bicarb 27, BUN 44, creatinine improved to 1.42, glucose 185. Potassium is being replaced per protocol. Currently, the plan is for evaluation by cardiothoracic services for possible surgical revascularization. Impella is going to remain in place for now. Her prognosis is currently guarded related to above-mentioned c omorbidities. She will be monitored in the intensive care unit. The patient is seen today 11/07/2022 in follow-up in the intensive care unit. She is currently resting in bed. Awake and alert in no acute distress. She is having issues with ongoing epistaxis. She's currently on room air. She does remain on a heparin drip. Normal saline at 30 MLS per hour. ImPella remains in place to the right groin. Pulmonary artery catheter and right groin. Cardiac output 5.7. Cardiac index 2.5. PA pressure 51/41. CVP 12. Mean arterial blood pressure 74. Chest x-ray reveals cardiomegaly with diffuse interstitial prominence suspect CHF. Left lower lobe consolidation and small bilateral effusions. White count 12.1. Hemoglobin 11.6. Platelets 105. Sodium 1:30. Potassium 3.9. Bicarb 35. BUN 39. Creatinine 1.38. Glucose 182. AST 53. ALT 21. The plan is return to the [facility] tomorrow. Remains on Lasix 80 mg IV every 8 hours. Currently in a -5.7 L balance. The patient is seen today 11/08/2022 in follow-up in the intensive care unit. She is awake and alert in no acute distress. Continue O2 saturations in the 90s on a Ventimask at 35% FiO2. No further epistaxis. Receiving Afrin nasal spray. She remains on heparin drip. She has normal saline at KVO. The Impala remains in place. Currently set at P-8. Cardiac output 3.6. Plan is to return to the [facility] today. White count 13.6. Hemoglobin 12.6. Platelets 108. Sodium 132. Potassium 3.3. Bicarb 40. BUN 46. Creatinine 1.47. Glucose 126. LDH 1334. Albumin 3.0. She remains on IV Lasix and Zaroxolyn. Currently in a -1.2 L balance. Chest x-ray continues show cardiomegaly with diffuse interstitial prominence. Stable compared to previous Objective - Vital Signs Vital signs: Vital Signs Temp 98.6 F 11/08/22 12:00 Pulse 79 11/08/22 12:00 Resp 17 11/08/22 12:00 BP 89/55 11/08/22 12:00 Pulse Ox 95 11/08/22 12:00 FiO2 35 11/08/22 08:00 Intake & Output 11/07/22 11/08/22 11/08/22 18:59 06:59 18:59 Intake Total 1013.532 889.289 342 Output Total 4635 2770 1020 Balance -3621.468 -1880.711 -678 Weight 125.7 kg Intake: IV 684 684 342 0.9 @ KVO 350 360 180 PRESSURE BAGS 108 108 54 Sodium Bicarb (1 Meq/ml) 226 216 108 12.5 ml In Dextrose 5% in Water 500 ml @ Per Protocol IV DIRECTED [facility] Rx#:[id number] Intake, IV Titration 329.532 205.289 Amount Heparin Sod,Pork in 0.45% 294.711 205.289 NaCl 25,000 unit In 0.45 % NaCl 1 250ml.bag @ 7. 874 UNITS/KG/HR 10 mls/hr IV .Q24H [facility] Rx#: [id number] Norepinephrine 4 mg In 34.821 Sodium Chloride 0.9% 250 ml @ 0.03 MCG/KG/MIN 15. 476 mls/hr IV .[id number] [facility] Rx#:[id number] Output: Urine 4635 2770 1000 Emesis 20 Other: Voiding Method Indwelling Catheter Indwelling Catheter Indwelling Catheter ABP, PAP, CO, CI - Last Documented Arterial Blood Pressure 101/84 Pulmonary Artery Pressure 61/55 Cardiac Output 5.7 Cardiac Index 2.5 - Exam GENERAL EXAM: Alert, pleasant 77-year-old obese female, on Ventimask 35% FiO2, comfortable in no apparent distress. HEAD: Normocephalic and atraumatic EYES: Normal reaction of pupils, equal size. NOSE: Clear with pink turbinates. THROAT: No erythema or exudates. NECK: No masses. Positive mild JVD CHEST: No chest wall deformity. LUNGS: Equal air entry with bibasilar inspiratory crackles. No conversational dyspnea or accessory muscle use.. CVS: S1 and S2 normal with no audible murmur, regular rhythm. No extra heart sounds ABDOMEN: Obese abdomen, no hepatosplenomegaly, active bowel sounds, no guarding or rigidity. SPINE: No scoliosis or deformity SKIN: No rashes, bilateral lower extremity chronic venous changes. CENTRAL NERVOUS SYSTEM: No focal deficits, tone is normal in all 4 extremities. EXTREMITIES: There is bilateral lower extremity 1-2+ pitting edema. Bilateral dorsal pedis pulses found with Doppler. Feet are warm. Movement and sensation intact. Impella LVAD inserted through right groin. No hematoma, there is a small amount of oozing from the insertion site. - Labs CBC & Chem 7: 11/08/22 04:44 11/08/22 04:44 Labs: Abnormal Lab Results - Last 24 Hours (Table) 11/07/22 11/07/22 11/07/22 Range/Units 13:40 15:18 15:44 WBC (3.8-10.6) k/uL Plt Count (150-450) k/uL Neutrophils # (1.3-7.7) k/uL APTT 41.1 H (22.0-30.0) sec Fibrinogen (200-500) mg/dL Sodium 130 L (137-145) mmol/L Potassium (3.5-5.1) mmol/L Chloride 88 L (98-107) mmol/L Carbon Dioxide 33 H (22-30) mmol/L BUN 44 H (7-17) mg/dL Creatinine 1.53 H (0.52-1.04) mg/dL Glucose 265 H (74-99) mg/dL POC Glucose (mg/dL) (70-110) mg/dL Total Bilirubin (0.2-1.3) mg/dL AST (14-36) U/L Lactate Dehydrogenase 939 H (120-246) U/L Total Protein (6.3-8.2) g/dL Albumin (3.5-5.0) g/dL 11/07/22 11/07/22 11/07/22 Range/Units 16:26 16:42 20:12 WBC (3.8-10.6) k/uL Plt Count (150-450) k/uL Neutrophils # (1.3-7.7) k/uL APTT (22.0-30.0) sec Fibrinogen (200-500) mg/dL Sodium (137-145) mmol/L Potassium (3.5-5.1) mmol/L Chloride (98-107) mmol/L Carbon Dioxide (22-30) mmol/L BUN (7-17) mg/dL Creatinine (0.52-1.04) mg/dL Glucose (74-99) mg/dL POC Glucose (mg/dL) 381 H 385 H 289 H (70-110) mg/dL Total Bilirubin (0.2-1.3) mg/dL AST (14-36) U/L Lactate Dehydrogenase (120-246) U/L Total Protein (6.3-8.2) g/dL Albumin (3.5-5.0) g/dL 11/07/22 11/07/22 11/07/22 Range/Units 20:13 22:45 22:56 WBC 13.2 H (3.8-10.6) k/uL Plt Count 109 L (150-450) k/uL Neutrophils # 10.3 H (1.3-7.7) k/uL APTT 49.4 H (22.0-30.0) sec Fibrinogen (200-500) mg/dL Sodium (137-145) mmol/L Potassium (3.5-5.1) mmol/L Chloride (98-107) mmol/L Carbon Dioxide (22-30) mmol/L BUN (7-17) mg/dL Creatinine (0.52-1.04) mg/dL Glucose (74-99) mg/dL POC Glucose (mg/dL) (70-110) mg/dL Total Bilirubin (0.2-1.3) mg/dL AST (14-36) U/L Lactate Dehydrogenase 1156 H (120-246) U/L Total Protein (6.3-8.2) g/dL Albumin (3.5-5.0) g/dL 11/08/22 11/08/22 11/08/22 Range/Units 04:44 04:44 06:00 WBC 13.6 H (3.8-10.6) k/uL Plt Count 108 L (150-450) k/uL Neutrophils # 10.5 H (1.3-7.7) k/uL APTT (22.0-30.0) sec Fibrinogen 510 H (200-500) mg/dL Sodium 132 L (137-145) mmol/L Potassium 3.3 L (3.5-5.1) mmol/L Chloride 85 L (98-107) mmol/L Carbon Dioxide 40 H (22-30) mmol/L BUN 46 H (7-17) mg/dL Creatinine 1.47 H (0.52-1.04) mg/dL Glucose 126 H (74-99) mg/dL POC Glucose (mg/dL) (70-110) mg/dL Total Bilirubin 2.3 H (0.2-1.3) mg/dL AST 68 H (14-36) U/L Lactate Dehydrogenase 1334 H (120-246) U/L Total Protein 5.7 L (6.3-8.2) g/dL Albumin 3.0 L (3.5-5.0) g/dL 11/08/22 11/08/22 11/08/22 Range/Units 06:48 07:12 10:00 WBC (3.8-10.6) k/uL Plt Count (150-450) k/uL Neutrophils # (1.3-7.7) k/uL APTT 54.5 H (22.0-30.0) sec Fibrinogen 543 H (200-500) mg/dL Sodium (137-145) mmol/L Potassium (3.5-5.1) mmol/L Chloride (98-107) mmol/L Carbon Dioxide (22-30) mmol/L BUN (7-17) mg/dL Creatinine (0.52-1.04) mg/dL Glucose (74-99) mg/dL POC Glucose (mg/dL) 134 H (70-110) mg/dL Total Bilirubin (0.2-1.3) mg/dL AST (14-36) U/L Lactate Dehydrogenase (120-246) U/L Total Protein (6.3-8.2) g/dL Albumin (3.5-5.0) g/dL 11/08/22 Range/Units 11:31 WBC (3.8-10.6) k/uL Plt Count (150-450) k/uL Neutrophils # (1.3-7.7) k/uL APTT (22.0-30.0) sec Fibrinogen (200-500) mg/dL Sodium (137-145) mmol/L Potassium (3.5-5.1) mmol/L Chloride (98-107) mmol/L Carbon Dioxide (22-30) mmol/L BUN (7-17) mg/dL Creatinine (0.52-1.04) mg/dL Glucose (74-99) mg/dL POC Glucose (mg/dL) 288 H (70-110) mg/dL Total Bilirubin (0.2-1.3) mg/dL AST (14-36) U/L Lactate Dehydrogenase (120-246) U/L Total Protein (6.3-8.2) g/dL Albumin (3.5-5.0) g/dL Assessment and Plan Assessment: Non-ST elevation myocardial infarction, status post heart catheterization on 11/05 demonstrating multivessel coronary artery disease. Cardiogenic shock, status post insertion of a Impella catheter on 11/05. Also, requiring low-dose vasopressors in the form of norepinephrine. Improved and pressors are off. Acute hypoxemic respiratory failure, improved, currently on 35% FiO2 via Ventimask, secondary to exacerbation of systolic congestive heart failure. Most recent chest x-ray from today 11/08/2022 is consistent with congestive heart failure with cardiomegaly, pulmonary vascular congestion, and bilateral pleural effusions. Echocardiogram demonstrated a reduced ejection fraction of 20-25%, moderate mitral regurgitation, and moderate tricuspid regurgitation. Epistaxis secondary to blood thinners improved and on Afrin nasal spray Acute on chronic kidney disease, improving History of coronary artery disease with multiple previous PCI and coronary stenting with previous in-stent restenosis History of hypertension Hyperlipidemia Diabetes mellitus type 2 Chronic kidney disease stage III Morbid obesity, with a BMI of 54.6 kg/m Lifelong nonsmoker Plan: The patient was seen and evaluated Chest x-ray, labs and medications reviewed STS score reveals operative mortality risk 51.3%. The plan is to continue with the Impella To return to the [facility] for stent placements Condition remains guarded We'll continue to follow I have personally seen and examined the patient, performed the documentation and the assessment and plan as written. Number of minutes spent on the visit: 15.
[2022-11-08] MEDS ORDERED: SODIUM CHLORIDE 0.9% 1,000 ML IV ONE (13:53)
[2022-11-08] MEDS ORDERED: IOPAMIDOL-370 100ML BTL INJ ONE ×2 (14:56→16:19)
[2022-11-08] MEDS ORDERED: NITROGLYCERIN 1000MCG/10ML SYRINGE INTRACORON ONE (14:58)
[2022-11-08] MEDS ORDERED: NOREPINEPHRINE 4 MG in SODIUM CHLORIDE 0.9% 250 ML IV ONE (15:05)
[2022-11-08] MEDS ORDERED: HEPARIN SODIUM 1,000 UN/ML (10ML VL) IV ONE (15:17)
[2022-11-08] MEDS ORDERED: HEPARIN SODIUM 1,000 UN/ML (10ML VL) IVP ONE ×2 (15:52→16:08)
[2022-11-08] MEDS ORDERED: fentaNYL (PF) 50 MCG/ML 2 ML AMP IVP ONE (16:17)
[2022-11-08 17:28] LABS: Glucose,Whole Blood 315 mg/dL (70-110)
[2022-11-08 20:41] LABS: Glucose,Whole Blood 381 mg/dL (70-110)
[2022-11-08] MEDS ORDERED: RX INFO: IV CONTRAST WAS GIVEN 1 EACH MISC MISCELLANE PRN (22:42)
[2022-11-08] MEDS ORDERED: ZOLPIDEM 5 MG TAB PO PRN (22:42)
[2022-11-08] MEDS ORDERED: ATROPINE SULFATE 0.1 MG/ML 10ML SYRINGE IV PRN (22:42)
--- NOTE | 2022-11-08 22:42 | P.PRCINT ---
Percutaneous Coronary Int. - Percutaneous Coronary Intervention Percutaneous Coronary Intervention: PROCEDURES PERFORMED: Left coronary angiography, ultrasound guided arterial access, Impella protected PCI left main into left circumflex with 3.5 x 12mm Xience and left main into LAD with 4.0 x 18mm Xience HIRAL with DK crush method, PCI mid LAD with a 3.0 x 12mm Xience, PCI OM1 with 2.5 x 8mm Xience, IVUS LAD and circumflex, Penumbra aspiration thrombectomy right common femoral artery, balloon angioplasty common femoral artery 5.0mm balloon, right heart catheterization INDICATION: NSTEMI, CAD, cardiogenic shock CONSENT:I have discussed the risks, benefits and alternative therapies for the above-mentioned procedure and for both sedation/analgesia as well as necessary blood product administration, if indicated, as they pertain to this patient. The patient has indicated understanding and acceptance of the risks and procedures discussed. PROCEDURE: After the risks, benefits and alternatives of the above mentioned procedure explained in detail with the patient, informed consent was obtained. Patient was felt best served anatomically with CABG however was deemed extremely elevated risk and therefore felt best treated with PCI. Patient was taken to the catheterization lab and prepped and draped in usual fashion. Patient previously had diagnostic cath and during cath had severely elevated LVEDP and cardiogenic shock and therefore Impella CP had been placed in the right femoral artery and a 8Fr sheath had been placed in the right femoral vein with swan peyton placed previously. The swan peyton catheter was noted to be in SVC as it had been repositioned previously however and therefore repositioned into the PA. Right heart catheterization was performed prior to intervention to obtain hemodynamic data. PCWP pressure was lower at 7 and therefore was given a fluid bolus. Ultrasound guidance was used to assess for arterial access. 1% lidocaine was used to anesthetize the left femoral artery. A 8-Peruvian sheath was placed in the left femoral artery using modified Seldinger technique and ultrasound guidance. An 8Fr EBU 4 guide catheter was advanced into the left main. There was dampening noted with engaging the left main and therefore required constant manipulation. A 0.014 BMW wire was advanced into the distal circumflex. An additional 0.014 whisper wire was advanced into the distal OM1 and a 3rd 0.014 BMW wire was advanced into the distal LAD. Predilation of the ostial circumflex was performed with a 3.0 x 12mm balloon. Next IVUS was performed into the LAD and circumflex. The LAD had diffuse disease of the entire proximal to mid LAD with heavy calcium and prior stenting. There was additional disease of the mid LAD however not able to advance IVUS catheter that far. The left main also had diffuse disease and 60% stenosis. Given easy wiring of the OM1 decision made to perform angioplasty and stenting of the OM1. A 4.0 x 12mm NC balloon was used to predilate the ostium of the circumflex given initially there was some difficulty advancing a 2.5 balloon past the ostium. After ballooning ostium, we were able to advance a 2.5 x 12mm balloon to the OM1 branch and inflated. Next a 2.5 x 8mm Xience HIRAL was advanced and deployed in the mid OM1. Attempted to perform kissing balloon angioplasty of the cirumflex and OM1 bifurcation however unable to advance both balloons easily and only able to perform balloon angioplasty of the circumflex into the OM1 with patient being hypotensive and felt best to treat the left main bifurcation. The decision was made to perform DK crush to the left main/LAD/circumflex. Therefore next a 3.5 x 12mm Xience HIRAL was placed from the distal left main into the circumflex. The circumflex stent was crushed with a 4.0 x 12mm NC balloon into the left main to LAD. Next the circumflex wire was drawn back into the left main and recrossed through the crushed stent struts. Kissing balloon angioplasty was performed with a 4.0 x 12mm NC balloon in the LAD and a 3.5 x 12mm NC balloon in the circumflex. Next a 3.0 x 8mm NC balloon was advanced into the LAD and balloon angioplasty was performed of the previous stent and the mid to distal LAD where there was an 80% stenosis. A 3.0 x 12mm Xience HIRAL was placed at the mid to distal LAD (overlapping previous stents). Next a 4.0 x 18mm Xience HIRAL was placed from the left main into the LAD and deployed. The stent balloon was used to flair the proximal edge of the left main stent. The circumflex wire was again drawn back and recrossed. Initially the circmflex stent struts were predilated with a 2.0 balloon. Next kissing balloon angioplasty was performed with a 3.5 x 12mm NC balloon in the circumflex and a 4.0 x 12mm NC balloon in the LAD into left main. Post POT of the left main ostium was performed with a 4.0 NC balloon. Repeat angiography was performed. IVUS was performed into the LAD and circumflex with excellent stent apposition, sizing and no dissection. Final angiograms were performed. Preintervention there was 60% left main stenosis, 95% ostial circuf memo stenosis, 95% ostial OM1 stenosis, 90% mid OM1 stenosis, 80% mid to distal LAD stenosis and TIIMI 3 flow. Post intervention there was < 10 % stenosis with SANTANA 3 flow. Next the Impella was weaned. There was likely some discrepancy with pressures throughout case with cuff pressures significantly increased compared with catheter pressures. Patient was however able to tolerate P2. Right heart catheterization was again performed and CI 2.1-2.2 on P2. LVEDP repeated from a left femoral arterial sheath and noted to be 12. Given patient tolerating fairly well and felt to be increased risks leaving Impella in, decision made to remove the Impella. The Impella CP was removed from the LV then removed from the sheath. The Impella sheath was removed and on removing some thrombus was noted in the sheath. The preclose Perclose x 2 were deployed with hemostasis achieved. A rim catheter was advanced from the left femoral site and angiogram showed thrombus in the external iliac artery and common femoral artery. Therefore decision was made to performed Penumbra aspiration thrombectomy. A 0.035 stiff glide was used to advance into the right SFA. A Penumbra catheter was used to perform aspiration thrombectomy. Balloon angioplasty was performed with a 5.0 x 20mm balloon to gentle inflation. Final angiograms were performed which still showed some small amount of thrombus however not flow limiting and felt best treated medically. There was some degree of oozing and therefore Fem stop loosely placed. A left femoral angiogram showed some spasm and not ideal for closure and therefore left in place to be pulled manually. The patient tolerated the procedure well. Patient was transported back to the post catheterization holding area in stable condition. Conscious Sedation: Patient was monitored under the direct supervision of myself for conscious sedation using Versed and fentanyl for a total duration of 183 minutes HEMODYNAMICS: Aorta: 85/61 LV: 82/2, LVEDP 12 SELECTIVE CORONARY ARTERIOGRAPHY: LEFT MAIN: The left main is a large caliber, short vessel which bifurcates into the LAD and circumflex. There is long proximal to distal 40-60% stenosis with more distal 60% stenosis. LEFT ANTERIOR DESCENDING CORONARY ARTERY: LAD is a moderate to large caliber vessel which wraps around to the apex. There is a proximal to mid LAD stent with diffuse 40-50% stenosis. There is more focal 70% proximal LAD stenosis. There is a small caliber diagonal 1 branch with 60-70% stenosis. The mid to distal LAD has a 80% stenosis. The distal LAD is small caliber and mild to moderate diffuse disease. There are left to right collaterals. LEFT CIRCUMFLEX CORONARY ARTERY: Left circumflex is a moderate to large caliber vessel with an ostial circumflex 95% stenosis, patent proximal to mid circumflex stent, OM1 ostial 95% stenosis and mid OM1 90% stenosis. RIGHT CORONARY ARTERY: The right coronary artery was not imaged however known to be occluded. FINAL IMPRESSION: 1. CAD as described above with left main 60% stenosis, proximal LAD 70%, mid to distal LAD 80%, ostial circumflex 95%, ostial OM1 95%, mid OM1 90% stenosis. Known BARREL FINISHER of the RCA. 2. S/p Impella protected PCI left main into left circumflex with 3.5 x 12mm Xience and left main into LAD with 4.0 x 18mm Xience HIRAL with DK crush method, PCI mid LAD with a 3.0 x 12mm Xience, PCI OM1 with 2.5 x 8mm Xience 3. Relatively normal left sided filling pressures 4. Thrombus noted in Impella 14 Fr sheath with some thrombus noted on angiogram, s/p Penumbra aspiration thrombectomy and balloon angioplasty of right external iliac and femoral artery PLAN: 1. Aggressive risk factor modification per most recent ACC/AHA guidelines. 2. Continue dual antiplatelets with aspirin and Plavix for 12 months. 3. Given thrombus noted in femoral artery from large bore access, would recommend at least 12 hrs of heparin drip and monitor vascular status closely. 4. Consider PCI BARREL FINISHER RCA if felt to be viable territory.
[2022-11-08] MEDS ORDERED: SODIUM CHLORIDE 0.9% 1,000 ML in EMPTY BAG 1 BAG IV SCH (22:45)
--- NOTE | 2022-11-08 22:51 | P.PN ---
Progress Note - Text Progress Note Date: 11/08/22 Hospital course. follows with Dr. Miller. Screener Perfumer Dr. Krause. .77 years old female with past medical history of History of coronary artery disease status post stenting, diabetes mellitus, hypertension, hyperlipidemia Patient presents because of worsening dyspnea over one week with possible elements of orthopnea. Also patient reports worsening of leg swelling. Occasional coughing. Occasional chest pain when lying down, last episode was 2 days ago currently patient denies any chest pain or discomfort and epigastric pain or neck pain. She does not look in respiratory distress when she talks easily and she does not use accessory respiratory muscles. She denies any urinary GI or neurological specific symptoms to me. She denies smoking alcohol or illicit drugs. Her PCP is Dr. Miller and her machine accountant is Dr. Krause Patient is mildly tachycardic and tachypneic labs reviewed, CBC, INR within the reference range. Creatinine is elevated 1.4, and 1.3 which is at or close to baseline of 1.2-1.4. mildly elevated lactic acid came back to normal. Troponin 1.5, 2.2 Chest x-ray: Cardiomegaly with pulmonary vascular congestion and bilateral pleural effusion. Possible congestive heart failure Echocardiogram from : Ejection fraction of 35-40% with dilated left ventricle with severe LV dysfunction and 2+ mitral regurgitation 11/04: Patient seen and evaluated bedside, home medications reviewed. Started on high-dose correctional insulin as well as Lantus. Aldactone discontinued. Continue patient on IV Lasix, continue IV heparin planned for cardiac catheterization 11/05: Patient seen and evaluated bedside. Patient is status post cardiac catheterization transferred to medical ICU. Status post impela placement, patient transferred to medical ICU. Cardiology and MICU team consulted and notified about new consult. Patient evaluated alert and oriented times 3.Care plan discussed with family denies of chest pain November 06: I assumed care of the patient today. ICU. Laying in bed. No chest pain. Currently on Impella. 2 L dose cannula. Patient this afternoon is nothing by mouth. High risk for surgery, pending decision as per cardiology. For further intervention. This admission was found over in-stent stenosis of OM1. November 07: ICU. Had a severe episode of epistaxis this morning. ENT was consulted. Nasal packing. We will use nasal cannula through the polyps to keep the oxygen up. 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 Eating. Impella P-8. IV heparin November 08: ICU. Today patient changing of the cardiac airport maintenance laborer by Dr. Osborne. Patient did get us stent to the obtuse marginal, circumflex. 2 stents to the LAD. Postprocedure brought back to the ICU. Started on before. 0.11 g. Sinus rhythm. Laying in bed awake tired. Is on Ventimask. No further epistaxis. Since yesterday. Patient be started on IV heparin after the sheath is pulled out. Active Medications Acetaminophen (Acetaminophen Tab 325 Mg Tab) 650 mg PO Q4HR PRN PRN Reason: Pain Last Admin: 11/08/22 17:38 Dose: 650 mg Al Hydroxide/Mg Hydroxide (Mag Hydrox/Al Hydrox/Simeth 30 Ml Cup) 30 ml PO Q4HR PRN PRN Reason: Heartburn Alprazolam (Alprazolam 0.25 Mg Tab) 0.25 mg PO Q6HR PRN PRN Reason: Mild Anxiety Last Admin: 11/07/22 09:40 Dose: 0.25 mg Alprazolam (Alprazolam 0.5 Mg Tab) 0.5 mg PO Q6HR PRN PRN Reason: Moderate Anxiety Ascorbic Acid (Ascorbic Acid 500 Mg Tab) 1,000 mg PO DAILY [facility] Last Admin: 11/08/22 08:46 Dose: 1,000 mg Aspirin (Aspirin 81 Mg) 81 mg PO DAILY [facility] Last Admin: 11/08/22 08:46 Dose: 81 mg Atorvastatin Calcium (Atorvastatin 80 Mg Tab) 80 mg PO DAILY [facility] Last Admin: 11/08/22 08:46 Dose: 80 mg Atropine Sulfate (Atropine Sulfate 0.1 Mg/Ml 10ml Syringe) 0.5 mg IV ONCE PRN PRN Reason: Symptomatic Bradycardia Carvedilol (Carvedilol 3.125 Mg Tab) 3.125 mg PO BID [facility] Last Admin: 11/08/22 21:42 Dose: 3.125 mg Cholecalciferol (Cholecalciferol 25 Mcg (1000 Iu) Tablet) 25 mcg PO DAILY [facility] Last Admin: 11/08/22 08:46 Dose: 25 mcg Clopidogrel Bisulfate (Clopidogrel 75 Mg Tab) 75 mg PO DAILY [facility] Last Admin: 11/08/22 09:42 Dose: Not Given Dextrose/Water (Dextrose 50% Syringe 50 Ml) 25 ml IVP PER PROTOCOL PRN; Protocol PRN Reason: Hypoglycemia Dextrose/Water (Dextrose 50% Syringe 50 Ml) 50 ml IVP PER PROTOCOL PRN; Protocol PRN Reason: Hypoglycemia Heparin Sodium (Porcine) (Heparin Sodium 1,000 Un/Ml (10ml Vl)) 0 unit IV PER PROTOCOL PRN; Protocol PRN Reason: Low PTT Last Admin: 11/07/22 16:50 Dose: 3,252.5 unit Heparin Sodium/Sodium Chloride (25,000 unit/ Sodium Chloride) 250 mls @ 10 mls/hr IV .Q24H [facility]; Protocol Last Titration: 11/08/22 17:30 Dose: 0 units/kg/hr, 0 mls/hr Sodium Bicarbonate 12.5 ml/ (Dextrose/Water) 512.5 mls @ 0 mls/hr IV DIRECTED [facility]; Protocol Last Admin: 11/08/22 11:24 Dose: 12.5 mls/hr Norepinephrine Bitartrate 4 mg (/ Sodium Chloride) 254 mls @ 15.476 mls/hr IV .[id number] [facility]; Protocol Last Titration: 11/08/22 22:06 Dose: 0.12 mcg/kg/min, 61.905 mls/hr Heparin Sodium (Porcine) 10, (000 unit/ Sodium Chloride) 1,001 mls @ 999 mls/hr IRRIGATION ONCE PRN PRN Reason: INTRA-OP Stop: 11/08/22 23:00 Heparin Sodium (Porcine) 2,500 (unit/ Sodium Chloride) 250.5 mls @ 250 mls/hr IRRIGATION ONCE PRN PRN Reason: INTRA-OP Stop: 11/08/22 23:00 Sodium Chloride 1,000 ml/ IV (Solution) 1,000 mls @ 130.1 mls/hr IV .Q7H42M [facility] Last Admin: 11/08/22 21:47 Dose: Not Given Sodium Chloride 1,000 ml/ IV (Solution) 1,000 mls @ 125.7 mls/hr IV .Q7H58M [facility] Stop: 11/09/22 02:46 Insulin Aspart (Insulin Aspart (Novolog) 100 Unit/Ml Vial) 0 unit SQ ACHS [facility]; Protocol Last Admin: 11/08/22 21:42 Dose: 20 unit Insulin Detemir (Insulin Detemir (Levemir) 100 Unit/Ml Syr) 30 unit SQ DAILY@0700 [facility] Last Admin: 11/08/22 08:16 Dose: Not Given Insulin Detemir (Insulin Detemir (Levemir) 100 Unit/Ml Syr) 30 unit SQ HS [facility] Last Admin: 11/08/22 21:42 Dose: 30 unit Isosorbide Mononitrate (Isosorbide Mononitrate Er 60 Mg Tab.Er.24h) 60 mg PO DAILY [facility] Last Admin: 11/08/22 08:46 Dose: 60 mg Metolazone (Metolazone 5 Mg Tab) 10 mg PO DAILY [facility] Last Admin: 11/08/22 08:47 Dose: 10 mg Miscellaneous Information (Potassium Replacement Protocol 1 Each Misc) 1 each MISCELLANE DAILY PRN; Protocol PRN Reason: Per Protocol Miscellaneous Information (Rx Info: Iv Contrast Was Given 1 Each Misc) 1 each MISCELLANE DAILY PRN PRN Reason: Per Protocol Stop: 11/10/22 22:42 Morphine Sulfate (Morphine Sulfate 4 Mg/Ml Syringe) 4 mg IV Q5M PRN PRN Reason: Chest Pain Nitroglycerin (Nitroglycerin Sl Tabs 0.4 Mg Tab) 0.4 mg SUBLINGUAL Q5M PRN PRN Reason: Chest Pain Last Admin: 11/05/22 07:07 Dose: 0.4 mg Nystatin (Nystatin 100,000 Unit/Gm Powd 15 Gm) 1 applic TOPICAL BID [facility]; Protocol Last Admin: 11/08/22 21:42 Dose: 1 applic Ondansetron HCl (Ondansetron 4 Mg/2 Ml Vial) 4 mg IVP Q8HR PRN PRN Reason: Nausea And Vomiting Last Admin: 11/08/22 08:45 Dose: 4 mg Oxymetazoline HCl (Oxymetazoline 0.05% Nasl Bluefield 1 Bluefield Bottle) 3 spray NASAL TID [facility] Last Admin: 11/08/22 22:09 Dose: 3 spray Pantoprazole Sodium (Pantoprazole 40 Mg/10 Ml Vial) 40 mg IVP DAILY [facility] Last Admin: 11/08/22 08:47 Dose: 40 mg Sacubitril/Valsartan (Sacubitril/Valsartan 24 Mg-26 Mg Tablet) 1 each PO DAILY [facility] Last Admin: 11/08/22 08:46 Dose: 1 each Senna (Sennosides 8.6 Mg Tab) 8.6 mg PO DAILY PRN PRN Reason: Constipation Last Admin: 11/07/22 16:50 Dose: 8.6 mg Zolpidem Tartrate (Zolpidem 5 Mg Tab) 5 mg PO HS PRN PRN Reason: Insomnia Past medical history to include: Diabetes, hypertension, hyperlipidemia, GA in 2010, CAD with stent in 2018 Social history: . No smoking or alcohol Physical examination: VITAL SIGNS: 75, 16, 103/45, 96% on Ventimask GENERAL: BMI 56.2, laying in bed, awake, tired. EYES: Pupils equal. Conjunctiva normal. HEENT: External appearance of nose and ears normal, oral cavity grossly normal. NECK: JVD not raised; masses not palpable. HEART: First and second heart sounds are normal; some edema. LUNGS: Respiratory rate normal; decreased breath sound. ABDOMEN: Soft, nontender, liver spleen not palpable, no masses palpable. PSYCH: Alert and oriented x3; mood and affect anxious MUSCULOSKELETAL:No Clubbing/cyanosis;muscles-grossly intact. OA INVESTIGATIONS, reviewed in the clinical context: November 08: White count 13.6 hemoglobin 12.6 sodium 132 potassium 3.3 BUN 46 creatinine 1.47 November 07: White count 12.1 hemoglobin 11.6 platelets 105 November 06: White count 7.8 hemoglobin 11.8 platelets 131 sodium 135 potassium 4.2 BUN 44 creatinine 1.47 2-D echocardiogram [limited close bracket: EF 20%. She seemingly reduced LV function. Previous labs: Creatinine 1.22 on May 2022 Assessment and plan: -Acute non-Q-wave GA. Known CAD. Aspirin, IV heparin, beta darian -November 08: 1 stent to the OM, 1 stent to circumflex, 2 stents to the LAD by Dr. Osborne. -Cardiogenic shock IV levo fed. - known 3-vessel CAD with chronically occluded RCA, with stents -Severe epistaxis. Possibly precipitated by IV heparin and nasal cannula.: No further episode Seen by Dr. Jayson Resendiz. Nasal packing. -Acute on chronic congestive diastolic heart failure of systolic dysfunction, EF 20 %, ischemic cardiomyopathy: Not improving. Impella placed-November 05-stopped November 08. Coreg. Entresto. Zaroxolyn. -Diabetes mellitus type 2, chronically on insulin Levemir 30 mg subcu every 12. follow Accu-Cheks with sliding scale -Essential hypertension Coreg, Entresto -Acute kidney injury, ATN likely cardiorenal Creatinine was 1.2 in May 2022 -Chronic kidney disease multifactorial, stage III -Morbid obesity BMI 56.2 Weight loss measures. Follow with PCP. -Full code Discussed with patient.
[2022-11-08 23:02] LABS: HCT 31.8 % (34.0-46.0); MCHC 34.7 g/dL (31.0-37.0); MCV 92.2 fL (80.0-100.0); Mean Platelet Volume 12.1; Platelet Count 145 k/uL (150-450); RBC 3.44 m/uL (3.80-5.40); RDW 13.7 % (11.5-15.5); WBC 24.7 k/uL (3.8-10.6)
[2022-11-08 23:58] LABS: Lymphocytes # (M) 0.74 k/uL (1.0-4.8); Monocytes # (M) 1.24 k/uL (0-1.0); Neutrophils # (M) 22.72 k/uL (1.3-7.7); Neutrophils % (M) 92 %; Nucleated Red Blood Cells 0 /100 WBC (0-0); Polychromasia Present; Total Cells Counted 100
[2022-11-09] MEDS ORDERED: FUROSEMIDE 10 MG/ML 2 ML VIAL IV ONE (00:53)
[2022-11-09] MEDS: NOREPINEPHRINE 4 MG in SODIUM CHLORIDE 0.9% 250 ML IV SCH ×3 (03:11→23:30)
[2022-11-09] MEDS: SODIUM CHLORIDE 0.9% 1,000 ML in EMPTY BAG 1 BAG IV SCH ×2 (05:11→09:40)
[2022-11-09 06:23] LABS: Glucose,Whole Blood 329 mg/dL (70-110)
[2022-11-09] MEDS: INSULIN ASPART (NovoLOG) 100 UNIT/ML VIAL SQ SCH ×6 (06:37→20:40)
[2022-11-09] MEDS: INSULIN DETEMIR (LEVEMIR) 100 UNIT/ML SYR SQ SCH ×2 (06:37→20:39)
[2022-11-09 07:20] LABS: Basophils % (A) 0 %; Eosinophils # (A) 0.1 k/uL (0-0.7); Eosinophils % (A) 0 %; HCT 28.6 % (34.0-46.0); HGB 9.7 gm/dL (11.4-16.0); Lymphocytes % (A) 5 %; MCH 31.6 pg (25.0-35.0); MCHC 33.9 g/dL (31.0-37.0); MCV 93.2 fL (80.0-100.0); Monocytes # (A) 1.1 k/uL (0-1.0); Monocytes % (A) 5 %; Neutrophils # (A) 17.3 k/uL (1.3-7.7); Neutrophils % (A) 88 %; Platelet Count 128 k/uL (150-450); RBC 3.07 m/uL (3.80-5.40); WBC 19.8 k/uL (3.8-10.6)
[2022-11-09 07:35] LABS: African American GFR (CKD) 20 (>60 ml/min/1.73 sqM); Anion Gap 8 mmol/L; Blood Urea Nitrogen 55 mg/dL (7-17); Calcium 7.9 mg/dL (8.4-10.2); Carbon Dioxide 31 mmol/L (22-30); Chloride 87 mmol/L (98-107); Glucose 290 mg/dL (74-99); LDH 833 U/L (120-246); Non-African American GFR(CKD) 18 (>60 ml/min/1.73 sqM); Potassium 4.2 mmol/L (3.5-5.1); Sodium 126 mmol/L (137-145)
--- NOTE | 2022-11-09 08:15 | XR ---
EXAMINATION TYPE: XR chest 1V portable DATE OF EXAM: 11/09/2022 Comparison: 11/08/2022 Clinical History: 77-year-old female CHF exacerbation Findings: Heart mildly enlarged. Atherosclerotic arch calcifications. Bony vasculature within normal limits. No consolidation or pleural effusion seen. The appearance to the pulmonary vasculature is improved comp ared to yesterday. Impression: Mild cardiomegaly. Improved appearance to the pulmonary vasculature from prior exam. No acute process seen.
--- NOTE | 2022-11-09 09:16 | P.PN ---
Subjective Progress Note Date: 11/09/22 The patient is a 77-year-old female with multiple comorbid conditions who presented to the hospital with shortness of breath, edema, and intrascapular pain. She was ruled in for non-ST elevated myocardial infarction and exacerbation of chronic systolic heart failure. Coronary angiogram showed severe triple-vessel disease with chronically occluded RCA, 50% left main disease, 80-90% mid LAD stenosis, 90% ostial left circumflex stenosis, and 90% in-stent restenosis of stent in the OM1. [employer] was notified and she underwent Impella placement for cardiogenic shock. Echocardiogram reveals EF at 20-25% with moderate MR and moderate TR. On 11/08/2022 the patient underwent stenting of the left main, PCI of the LAD, and PCI of the OM1. Thrombus was noted on Impella sheath, therefore the patient was put on heparin overnight. The patient developed hypotension overnight and is cu rrently on Levophed. The patient was interviewed and examined resting comfortably in bed. She repo rts that she is fatigued and tired but denies any cardiac symptoms. GENERAL: Well-appearing, obese female. NECK: Supple without JVD or thyromegaly. LUNGS: Breath sounds diminished to auscultation bilaterally. Respiration equal and unlabored. No wheezes, rales or rhonchi. HEART: Regular rate and rhythm without murmurs, rubs or gallops. S1 and S2 heard. EXTREMITIES: Normal range of motion, mild generalized edema. No clubbing or cyanosis. Bilateral groin sites show no evidence of bleeding or hematoma TELEMETRY: Sinus rhythm with IVCD LABS: WBC 19.8, hemoglobin 9.7, hematocrit 28.6, sodium 126, potassium 4.2, BUN 55, creatinine 2.55 IMPRESSION: Non-ST elevated myocardial infarction Severe coronary artery disease with prior stenting and in-stent restenosis Cardiogenic shock requiring high-dose pressors and Impella placement Valvular heart disease Diabetes mellitus Morbid obesity Acute kidney injury, secondary to contrast load PLAN: Discontinue isosorbide Hold Entresto and diuretics Wean from Levophed drip Continue low-dose IV fluids for elevated creatinine secondary to contrast dye Consider resuming diuretics tomorrow Further recommendations based on clinical course I am dictating on behalf of Dr Jeronimo Adams's history/physical and assessment/plan. Objective - Vital Signs Vital signs: Vital Signs Temp 98.4 F 11/09/22 04:00 Pulse 77 11/09/22 08:30 Resp 13 11/09/22 08:30 BP 101/47 11/09/22 08:30 Pulse Ox 94 L 11/09/22 09:04 FiO2 35 11/09/22 04:00 Intake & Output 11/08/22 11/09/22 11/09/22 18:59 06:59 18:59 Intake Total 8323.792 4058.785 366.790 Output Total 1190 215 18 Balance 25.324 2488.785 348.790 Weight 125.7 kg 129 kg Intake: IV 1005 1563 240 0.9 @ KVO 480 1560 240 PRESSURE BAGS 60 3 Sodium Bicarb (1 Meq/ml) 108 12.5 ml In Dextrose 5% in Water 500 ml @ Per Protocol IV DIRECTED [facility] Rx#:[id number] Intake, IV Titration 210.324 360.785 126.790 Amount Heparin Sod,Pork in 0.45% 210.324 0 39.676 NaCl 25,000 unit In 0.45 % NaCl 1 250ml.bag @ 7. 874 UNITS/KG/HR 10 mls/hr IV .Q24H [facility] Rx#: [id number] Norepinephrine 4 mg In 360.785 87.114 Sodium Chloride 0.9% 250 ml @ 0.03 MCG/KG/MIN 15. 476 mls/hr IV .[id number] [facility] Rx#:[id number] Oral 780 Output: Urine 1170 215 18 Emesis 20 Other: Voiding Method Indwelling Catheter Indwelling Catheter ABP, PAP, CO, CI - Last Documented Arterial Blood Pressure 124/45 Pulmonary Artery Pressure 61/55 Cardiac Output 5.7 Cardiac Index 2.5 - Labs CBC & Chem 7: 11/09/22 07:16 11/09/22 06:52 Labs: Abnormal Lab Results - Last 24 Hours (Table) 11/08/22 11/08/22 11/08/22 Range/Units 10:00 11:31 17:26 WBC (3.8-10.6) k/uL RBC (3.80-5.40) m/uL Hgb (11.4-16.0) gm/dL Hct (34.0-46.0) % Plt Count (150-450) k/uL Neutrophils # (Manual) (1.3-7.7) k/uL Lymphocytes # (Manual) (1.0-4.8) k/uL Monocytes # (Manual) (0-1.0) k/uL APTT (22.0-30.0) sec Fibrinogen 543 H (200-500) mg/dL Sodium (137-145) mmol/L Chloride (98-107) mmol/L Carbon Dioxide (22-30) mmol/L BUN (7-17) mg/dL Creatinine (0.52-1.04) mg/dL Glucose (74-99) mg/dL POC Glucose (mg/dL) 288 H 315 H (70-110) mg/dL Calcium (8.4-10.2) mg/dL Lactate Dehydrogenase (120-246) U/L 11/08/22 11/08/22 11/08/22 Range/Units 17:59 20:40 22:00 WBC (3.8-10.6) k/uL RBC (3.80-5.40) m/uL Hgb (11.4-16.0) gm/dL Hct (34.0-46.0) % Plt Count (150-450) k/uL Neutrophils # (Manual) (1.3-7.7) k/uL Lymphocytes # (Manual) (1.0-4.8) k/uL Monocytes # (Manual) (0-1.0) k/uL APTT (22.0-30.0) sec Fibrinogen 537 H (200-500) mg/dL Sodium (137-145) mmol/L Chloride (98-107) mmol/L Carbon Dioxide (22-30) mmol/L BUN (7-17) mg/dL Creatinine (0.52-1.04) mg/dL Glucose (74-99) mg/dL POC Glucose (mg/dL) 381 H (70-110) mg/dL Calcium (8.4-10.2) mg/dL Lactate Dehydrogenase 1171 H (120-246) U/L 11/08/22 11/09/22 11/09/22 Range/Units 22:15 06:21 06:52 WBC 24.7 H (3.8-10.6) k/uL RBC 3.44 L (3.80-5.40) m/uL Hgb 11.0 L (11.4-16.0) gm/dL Hct 31.8 L (34.0-46.0) % Plt Count 145 L (150-450) k/uL Neutrophils # (Manual) 22.72 H (1.3-7.7) k/uL Lymphocytes # (Manual) 0.74 L (1.0-4.8) k/uL Monocytes # (Manual) 1.24 H (0-1.0) k/uL APTT (22.0-30.0) sec Fibrinogen (200-500) mg/dL Sodium 126 L (137-145) mmol/L Chloride 87 L (98-107) mmol/L Carbon Dioxide 31 H (22-30) mmol/L BUN 55 H (7-17) mg/dL Creatinine 2.55 H (0.52-1.04) mg/dL Glucose 290 H (74-99) mg/dL POC Glucose (mg/dL) 329 H (70-110) mg/dL Calcium 7.9 L (8.4-10.2) mg/dL Lactate Dehydrogenase 833 H (120-246) U/L 11/09/22 11/09/22 Range/Units 07:16 07:16 WBC 19.8 H (3.8-10.6) k/uL RBC 3.07 L (3.80-5.40) m/uL Hgb 9.7 L (11.4-16.0) gm/dL Hct 28.6 L (34.0-46.0) % Plt Count (150-450) k/uL Neutrophils # (Manual) (1.3-7.7) k/uL Lymphocytes # (Manual) (1.0-4.8) k/uL Monocytes # (Manual) (0-1.0) k/uL APTT >200.0 H* (22.0-30.0) sec Fibrinogen (200-500) mg/dL Sodium (137-145) mmol/L Chloride (98-107) mmol/L Carbon Dioxide (22-30) mmol/L BUN (7-17) mg/dL Creatinine (0.52-1.04) mg/dL Glucose (74-99) mg/dL POC Glucose (mg/dL) (70-110) mg/dL Calcium (8.4-10.2) mg/dL Lactate Dehydrogenase (120-246) U/L
[2022-11-09 09:24] LABS: Large Platelets Present; RBC Morphology Normal
[2022-11-09] MEDS: SODIUM CHLORIDE 0.9% 1,000 ML IV SCH (10:00)
[2022-11-09] MEDS: ASPIRIN 81 MG PO SCH (10:38)
[2022-11-09] MEDS: ATORVASTATIN 80 MG TAB PO SCH (10:38)
[2022-11-09] MEDS: PANTOPRAZOLE 40 MG/10 ML VIAL IVP SCH (10:38)
[2022-11-09] MEDS: CHOLECALCIFEROL 25 MCG (1000 IU) TABLET PO SCH (10:38)
[2022-11-09] MEDS: ASCORBIC ACID 500 MG TAB PO SCH (10:38)
[2022-11-09] MEDS: CLOPIDOGREL 75 MG TAB PO SCH (10:38)
[2022-11-09] MEDS: OXYMETAZOLINE 0.05% NASL SPRAY 1 SPRAY BOTTLE NASAL SCH ×3 (10:39→22:50)
[2022-11-09] MEDS: NYSTATIN 100,000 UNIT/GM POWD 15 GM TOPICAL SCH ×2 (10:46→20:41)
[2022-11-09 11:10] LABS: Glucose,Whole Blood 396 mg/dL (70-110)
--- NOTE | 2022-11-09 11:55 | P.PN ---
Subjective Progress Note Date: 11/09/22 I am seeing this patient in new consultation today 11/06/2022 in the intensive care unit after the patient presented with non-ST elevation NJ and cardiogenic shock requiring Impella insertion. Patient is a 77-year-old white female with past medical history significant for multivessel coronary artery disease with multiple previous coronary stents. Most recent coronary stenting done in May, to the first obtuse marginal branch of the circumflex and main circumflex coronary artery. Patient also has significant history of hypertension, hyperlipidemia, diabetes mellitus type 2, obesity, and chronic kidney disease. Her primary care provider is a nurse practitioner, Mickie Saenz, out of Dr. Miller office in [place]. Patient presented back on October with complaints of intermittent shortness of breath and chest pressure that started on the preceding Sunday or Sunday. This was accompanied with increased lower extremity swelling. She does have chronic lymphedema. Troponins had been trending up at 0.98, 1.59, and 2.2. ECG on arrival showed sinus tachycardia with possible septal-lateral myocardial infarction of indeterminate age, and right axis deviation. She was diagnosed with a non-ST elevation NJ. She was originally admitted to the cardiac stepdown unit. Echocardiogram demonstrated a reduced ejection fraction of 20-25%, moderate mitral regurgitation, and moderate tricuspid regurgitation. She was taken for cardiac catheterization yesterday, which demonstrated the patient's multivessel coronary artery disease including 80-90% stenosis involving the mid LAD, 50% stenosis of the distal left main, 90% stenosis of the circumflex, and 90% restenosis of the previously stented obtuse marginal branch, there was chronic RCA stenosis with collaterals. Patient developed shock like symptoms, had elevated left ventricular end-diastolic pressure of 35-40 mmHg, and a Impella assist device was inserted. She was subsequently transferred to the intensive care unit. At this point, we were consulted yesterday afternoon. Patient is currently lying supine in bed, on 2 L/m nasal cannula, in no acute distress. Most recent chest x-ray from October was consistent with congestive heart failure with cardiomegaly, pulmonary vascular congestion, and bilateral pleural effusions. She is being diuresed with Lasix 40 mg every 8 hours. The Impella is inserted through the right groin. Flow is at P9. There is a pulmonary artery catheter with cardiac output/cardiac index reading 5.5/2.4 respectively. Pulmonary artery pressures are 44/18. Blood pressure is hypotensive at 75/52 mmHg. Heart rhythm appears normal sinus around 70 bpm on bedside monitor. Cardiology has just started the patient on norepinephrine, which was initiated at 0.05 mcg/kg/m. Heparin is infusing per Impella protocol. PTT is therapeutic. Fibrinogen level 374 There was small amount of oozing from the Impella insertion site. No hematoma formation. Pulses were found bilaterally with Doppler. Most recent CBC from yesterday shows a WBC count 7.9, hemoglobin 11.4, hematocrit 33.3, platelets 142. BMP from yesterday shows sodium 133, potassium 3.5, chloride 101, serum bicarb 27, BUN 44, creatinine improved to 1.42, glucose 185. Potassium is being replaced per protocol. Currently, the plan is for evaluation by cardiothoracic services for possible surgical revascularization. Impella is going to remain in place for now. Her prognosis is currently guarded related to above-mentioned c omorbidities. She will be monitored in the intensive care unit. The patient is seen today 11/07/2022 in follow-up in the intensive care unit. She is currently resting in bed. Awake and alert in no acute distress. She is having issues with ongoing epistaxis. She's currently on room air. She does remain on a heparin drip. Normal saline at 30 MLS per hour. ImPella remains in place to the right groin. Pulmonary artery catheter and right groin. Cardiac output 5.7. Cardiac index 2.5. PA pressure 51/41. CVP 12. Mean arterial blood pressure 74. Chest x-ray reveals cardiomegaly with diffuse interstitial prominence suspect CHF. Left lower lobe consolidation and small bilateral effusions. White count 12.1. Hemoglobin 11.6. Platelets 105. Sodium 1:30. Potassium 3.9. Bicarb 35. BUN 39. Creatinine 1.38. Glucose 182. AST 53. ALT 21. The plan is return to the [facility] tomorrow. Remains on Lasix 80 mg IV every 8 hours. Currently in a -5.7 L balance. The patient is seen today 11/08/2022 in follow-up in the intensive care unit. She is awake and alert in no acute distress. Continue O2 saturations in the 90s on a Ventimask at 35% FiO2. No further epistaxis. Receiving Afrin nasal spray. She remains on heparin drip. She has normal saline at KVO. The Impala remains in place. Currently set at P-8. Cardiac output 3.6. Plan is to return to the [facility] today. White count 13.6. Hemoglobin 12.6. Platelets 108. Sodium 132. Potassium 3.3. Bicarb 40. BUN 46. Creatinine 1.47. Glucose 126. LDH 1334. Albumin 3.0. She remains on IV Lasix and Zaroxolyn. Currently in a -1.2 L balance. Chest x-ray continues show cardiomegaly with diffuse interstitial prominence. Stable compared to previous The patient is seen today 11/09/2022 in follow-up in the intensive care unit. She is sitting up in bed. Awake and alert in no acute distress. She is maintaining good O2 saturations in the 90s on room air. Chest x-ray shows mild cardiomegaly. Improved appearance of the pulmonary vascular. No acute process seen. Her Impella was removed yesterday. Heparin drip is off. She is requiring norepinephrine at 0.07 mcg/kg/m. She has normal saline at 50 ML's per hour. She did undergo stenting 4 yesterday and remains on Plavix and aspirin. White count 19.8. Hemoglobin 9.7. Platelets 128. Sodium 126. Potassium 4.2. Bicarb 31. BUN 55. Creatinine 2.55. Glucose 290. LDH 833. Objective - Vital Signs Vital signs: Vital Signs Temp 98.4 F 11/09/22 04:00 Pulse 85 11/09/22 11:30 Resp 16 11/09/22 11:30 BP 112/41 11/09/22 11:30 Pulse Ox 96 11/09/22 11:30 FiO2 35 11/09/22 04:00 Intake & Output 11/08/22 11/09/22 11/09/22 18:59 06:59 18:59 Intake Total 3981.790 4581.785 623.556 Output Total 1190 215 33 Balance 25.324 2488.785 590.556 Weight 125.7 kg 129 kg Intake: IV 1005 1563 480 0.9 @ KVO 480 1560 480 PRESSURE BAGS 60 3 Sodium Bicarb (1 Meq/ml) 108 12.5 ml In Dextrose 5% in Water 500 ml @ Per Protocol IV DIRECTED [facility] Rx#:[id number] Intake, IV Titration 210.324 360.785 143.556 Amount Heparin Sod,Pork in 0.45% 210.324 0 39.676 NaCl 25,000 unit In 0.45 % NaCl 1 250ml.bag @ 7. 874 UNITS/KG/HR 10 mls/hr IV .Q24H [facility] Rx#: [id number] Norepinephrine 4 mg In 360.785 103.880 Sodium Chloride 0.9% 250 ml @ 0.03 MCG/KG/MIN 15. 476 mls/hr IV .[id number] [facility] Rx#:[id number] Oral 780 Output: Urine 1170 215 33 Emesis 20 Other: Voiding Method Indwelling Catheter Indwelling Catheter ABP, PAP, CO, CI - Last Documented Arterial Blood Pressure 124/45 Pulmonary Artery Pressure 61/55 Cardiac Output 5.7 Cardiac Index 2.5 - Exam GENERAL EXAM: Alert, pleasant 77-year-old female, on room air, comfortable in no apparent distress. HEAD: Normocephalic and atraumatic EYES: Normal reaction of pupils, equal size. NOSE: Clear with pink turbinates. THROAT: No erythema or exudates. NECK: No masses. Positive mild JVD CHEST: No chest wall deformity. LUNGS: Equal air entry with bibasilar inspiratory crackles. CVS: S1 and S2 normal with no audible murmur, regular rhythm. No extra heart sounds ABDOMEN: Obese abdomen, no hepatosplenomegaly, active bowel sounds, no guarding or rigidity. SPINE: No scoliosis or deformity SKIN: No rashes, bilateral lower extremity chronic venous changes. CENTRAL NERVOUS SYSTEM: No focal deficits, tone is normal in all 4 extremities. EXTREMITIES: There is bilateral lower extremity 1-2+ pitting edema. Movement and sensation intact. - Labs CBC & Chem 7: 11/09/22 07:16 11/09/22 06:52 Labs: Abnormal Lab Results - Last 24 Hours (Table) 11/08/22 11/08/22 11/08/22 Range/Units 17:26 17:59 20:40 WBC (3.8-10.6) k/uL RBC (3.80-5.40) m/uL Hgb (11.4-16.0) gm/dL Hct (34.0-46.0) % Plt Count (150-450) k/uL Neutrophils # (1.3-7.7) k/uL Neutrophils # (Manual) (1.3-7.7) k/uL Lymphocytes # (Manual) (1.0-4.8) k/uL Monocytes # (0-1.0) k/uL Monocytes # (Manual) (0-1.0) k/uL APTT (22.0-30.0) sec Fibrinogen (200-500) mg/dL Sodium (137-145) mmol/L Chloride (98-107) mmol/L Carbon Dioxide (22-30) mmol/L BUN (7-17) mg/dL Creatinine (0.52-1.04) mg/dL Glucose (74-99) mg/dL POC Glucose (mg/dL) 315 H 381 H (70-110) mg/dL Calcium (8.4-10.2) mg/dL Lactate Dehydrogenase 1171 H (120-246) U/L 11/08/22 11/08/22 11/09/22 Range/Units 22:00 22:15 06:21 WBC 24.7 H (3.8-10.6) k/uL RBC 3.44 L (3.80-5.40) m/uL Hgb 11.0 L (11.4-16.0) gm/dL Hct 31.8 L (34.0-46.0) % Plt Count 145 L (150-450) k/uL Neutrophils # (1.3-7.7) k/uL Neutrophils # (Manual) 22.72 H (1.3-7.7) k/uL Lymphocytes # (Manual) 0.74 L (1.0-4.8) k/uL Monocytes # (0-1.0) k/uL Monocytes # (Manual) 1.24 H (0-1.0) k/uL APTT (22.0-30.0) sec Fibrinogen 537 H (200-500) mg/dL Sodium (137-145) mmol/L Chloride (98-107) mmol/L Carbon Dioxide (22-30) mmol/L BUN (7-17) mg/dL Creatinine (0.52-1.04) mg/dL Glucose (74-99) mg/dL POC Glucose (mg/dL) 329 H (70-110) mg/dL Calcium (8.4-10.2) mg/dL Lactate Dehydrogenase (120-246) U/L 11/09/22 11/09/22 11/09/22 Range/Units 06:52 07:16 07:16 WBC 19.8 H (3.8-10.6) k/uL RBC 3.07 L (3.80-5.40) m/uL Hgb 9.7 L (11.4-16.0) gm/dL Hct 28.6 L (34.0-46.0) % Plt Count 128 L (150-450) k/uL Neutrophils # 17.3 H (1.3-7.7) k/uL Neutrophils # (Manual) (1.3-7.7) k/uL Lymphocytes # (Manual) (1.0-4.8) k/uL Monocytes # 1.1 H (0-1.0) k/uL Monocytes # (Manual) (0-1.0) k/uL APTT >200.0 H* (22.0-30.0) sec Fibrinogen (200-500) mg/dL Sodium 126 L (137-145) mmol/L Chloride 87 L (98-107) mmol/L Carbon Dioxide 31 H (22-30) mmol/L BUN 55 H (7-17) mg/dL Creatinine 2.55 H (0.52-1.04) mg/dL Glucose 290 H (74-99) mg/dL POC Glucose (mg/dL) (70-110) mg/dL Calcium 7.9 L (8.4-10.2) mg/dL Lactate Dehydrogenase 833 H (120-246) U/L 11/09/22 Range/Units 11:08 WBC (3.8-10.6) k/uL RBC (3.80-5.40) m/uL Hgb (11.4-16.0) gm/dL Hct (34.0-46.0) % Plt Count (150-450) k/uL Neutrophils # (1.3-7.7) k/uL Neutrophils # (Manual) (1.3-7.7) k/uL Lymphocytes # (Manual) (1.0-4.8) k/uL Monocytes # (0-1.0) k/uL Monocytes # (Manual) (0-1.0) k/uL APTT (22.0-30.0) sec Fibrinogen (200-500) mg/dL Sodium (137-145) mmol/L Chloride (98-107) mmol/L Carbon Dioxide (22-30) mmol/L BUN (7-17) mg/dL Creatinine (0.52-1.04) mg/dL Glucose (74-99) mg/dL POC Glucose (mg/dL) 396 H (70-110) mg/dL Calcium (8.4-10.2) mg/dL Lactate Dehydrogenase (120-246) U/L Assessment and Plan Assessment: Non-ST elevation myocardial infarction, status post heart catheterization on 11/05 demonstrating multivessel coronary artery disease. Status post stenting 4 on 11/08/2022 Cardiogenic shock, status post insertion of a Impella catheter on 11/05 and removed on 11/08/2022. Also, requiring low-dose vasopressors in the form of norepinephrine. Acute hypoxemic respiratory failure, improved, currently on 35% FiO2 via Ventimask, secondary to exacerbation of systolic congestive heart failure. Most recent chest x-ray from today 11/08/2022 is consistent with congestive heart failure with cardiomegaly, pulmonary vascular congestion, and bilateral pleural effusions. Echocardiogram demonstrated a reduced ejection fraction of 20-25%, moderate mitral regurgitation, and moderate tricuspid regurgitation. Epistaxis secondary to blood thinners improved and on Afrin nasal spray Acute on chronic kidney disease, improving History of coronary artery disease with multiple previous PCI and coronary stenting with previous in-stent restenosis History of hypertension Hyperlipidemia Diabetes mellitus type 2 Chronic kidney disease stage III Morbid obesity, with a BMI of 54.6 kg/m Lifelong nonsmoker Plan: The patient was seen and evaluated Chest x-ray, labs and medications reviewed Currently stable and on room air Remains on Plavix and aspirin Requiring a small amount of norepinephrine Titrate down, off as tolerated Condition remains guarded We'll continue to follow I have personally seen and examined the patient, performed the documentation and the assessment and plan as written. Number of minutes spent on the visit: 10.
[2022-11-09] MEDS ORDERED: INSULIN NPH 100 UNIT/ML 10 ML VIAL SQ SCH (12:15)
[2022-11-09] MEDS: SENNOSIDES 8.6 MG TAB PO PRN (14:00)
[2022-11-09 16:48] LABS: Glucose,Whole Blood 172 mg/dL (70-110)
--- NOTE | 2022-11-09 17:27 | P.PN ---
Progress Note - Text Progress Note Date: 11/09/22 Hospital course. follows with Dr. Miller. Denture Waxer Dr. Krause. .77 years old female with past medical history of History of coronary artery disease status post stenting, diabetes mellitus, hypertension, hyperlipidemia Patient presents because of worsening dyspnea over one week with possible elements of orthopnea. Also patient reports worsening of leg swelling. Occasional coughing. Occasional chest pain when lying down, last episode was 2 days ago currently patient denies any chest pain or discomfort and epigastric pain or neck pain. She does not look in respiratory distress when she talks easily and she does not use accessory respiratory muscles. She denies any urinary GI or neurological specific symptoms to me. She denies smoking alcohol or illicit drugs. Her PCP is Dr. Miller and her commercial lines assistant is Dr. Krause Patient is mildly tachycardic and tachypneic labs reviewed, CBC, INR within the reference range. Creatinine is elevated 1.4, and 1.3 which is at or close to baseline of 1.2-1.4. mildly elevated lactic acid came back to normal. Troponin 1.5, 2.2 Chest x-ray: Cardiomegaly with pulmonary vascular congestion and bilateral pleural effusion. Possible congestive heart failure Echocardiogram from : Ejection fraction of 35-40% with dilated left ventricle with severe LV dysfunction and 2+ mitral regurgitation 11/04: Patient seen and evaluated bedside, home medications reviewed. Started on high-dose correctional insulin as well as Lantus. Aldactone discontinued. Continue patient on IV Lasix, continue IV heparin planned for cardiac catheterization 11/05: Patient seen and evaluated bedside. Patient is status post cardiac catheterization transferred to medical ICU. Status post impela placement, patient transferred to medical ICU. Cardiology and MICU team consulted and notified about new consult. Patient evaluated alert and oriented times 3.Care plan discussed with family denies of chest pain November 06: I assumed care of the patient today. ICU. Laying in bed. No chest pain. Currently on Impella. 2 L dose cannula. Patient this afternoon is nothing by mouth. High risk for surgery, pending decision as per cardiology. For further intervention. This admission was found over in-stent stenosis of OM1. November 07: ICU. Had a severe episode of epistaxis this morning. ENT was consulted. Nasal packing. We will use nasal cannula through the polyps to keep the oxygen up. Currently plan for patient to go back to the cardiac labels molder t omorrow. Eating. Impella P-8. IV heparin November 08: ICU. Today patient changing of the cardiac labels molder by Dr. Osborne. Patient did get us stent to the obtuse marginal, circumflex. 2 stents to the LAD. Postprocedure brought back to the ICU. Started on before. 0.11 g. Sinus rhythm. Laying in bed awake tired. Is on Ventimask. No further epistaxis. Since yesterday. Patient be started on IV heparin after the sheath is pulled out. November 09: ICU. Laying in bed. Feeling very tired. On levo fed. Entresto diuretics have been held. Gentle IV fluids per cardiology. Nitrates held. Active Medications Acetaminophen (Acetaminophen Tab 325 Mg Tab) 650 mg PO Q4HR PRN PRN Reason: Pain Last Admin: 11/08/22 17:38 Dose: 650 mg Al Hydroxide/Mg Hydroxide (Mag Hydrox/Al Hydrox/Simeth 30 Ml Cup) 30 ml PO Q4HR PRN PRN Reason: Heartburn Alprazolam (Alprazolam 0.25 Mg Tab) 0.25 mg PO Q6HR PRN PRN Reason: Mild Anxiety Last Admin: 11/07/22 09:40 Dose: 0.25 mg Alprazolam (Alprazolam 0.5 Mg Tab) 0.5 mg PO Q6HR PRN PRN Reason: Moderate Anxiety Ascorbic Acid (Ascorbic Acid 500 Mg Tab) 1,000 mg PO DAILY [facility] Last Admin: 11/09/22 10:38 Dose: 1,000 mg Aspirin (Aspirin 81 Mg) 162 mg PO DAILY [facility] Atorvastatin Calcium (Atorvastatin 80 Mg Tab) 80 mg PO DAILY [facility] Last Admin: 11/09/22 10:38 Dose: 80 mg Atropine Sulfate (Atropine Sulfate 0.1 Mg/Ml 10ml Syringe) 0.5 mg IV ONCE PRN PRN Reason: Symptomatic Bradycardia Cholecalciferol (Cholecalciferol 25 Mcg (1000 Iu) Tablet) 25 mcg PO DAILY [facility] Last Admin: 11/09/22 10:38 Dose: 25 mcg Clopidogrel Bisulfate (Clopidogrel 75 Mg Tab) 75 mg PO DAILY [facility] Last Admin: 11/09/22 10:38 Dose: 75 mg Dextrose/Water (Dextrose 50% Syringe 50 Ml) 25 ml IVP PER PROTOCOL PRN; Protocol PRN Reason: Hypoglycemia Dextrose/Water (Dextrose 50% Syringe 50 Ml) 50 ml IVP PER PROTOCOL PRN; Protocol PRN Reason: Hypoglycemia Norepinephrine Bitartrate 4 mg (/ Sodium Chloride) 254 mls @ 15.476 mls/hr IV .[id number] [facility]; Protocol Last Titration: 11/09/22 09:30 Dose: 0.05 mcg/kg/min, 25.794 mls/hr Sodium Chloride (Saline 0.9%) 1,000 mls @ 50 mls/hr IV .Q20H [facility] Last Admin: 11/09/22 10:00 Dose: 50 mls/hr Insulin Aspart (Insulin Aspart (Novolog) 100 Unit/Ml Vial) 0 unit SQ ACHS [facility]; Protocol Last Admin: 11/09/22 16:59 Dose: 4 unit Insulin Aspart (Insulin Aspart (Novolog) 100 Unit/Ml Vial) 6 unit SQ AC-TID [facility] Last Admin: 11/09/22 16:59 Dose: 6 unit Insulin Detemir (Insulin Detemir (Levemir) 100 Unit/Ml Syr) 30 unit SQ HS [facility] Last Admin: 11/08/22 21:42 Dose: 30 unit Insulin Detemir (Insulin Detemir (Levemir) 100 Unit/Ml Syr) 36 unit SQ Q12H [facility] Metoprolol Tartrate (Metoprolol Tartrate 12.5 Mg Tab) 12.5 mg PO BID [facility] Miscellaneous Information (Potassium Replacement Protocol 1 Each Misc) 1 each MISCELLANE DAILY PRN; Protocol PRN Reason: Per Protocol Miscellaneous Information (Rx Info: Iv Contrast Was Given 1 Each Misc) 1 each MISCELLANE DAILY PRN PRN Reason: Per Protocol Stop: 11/10/22 22:42 Morphine Sulfate (Morphine Sulfate 4 Mg/Ml Syringe) 4 mg IV Q5M PRN PRN Reason: Chest Pain Nitroglycerin (Nitroglycerin Sl Tabs 0.4 Mg Tab) 0.4 mg SUBLINGUAL Q5M PRN PRN Reason: Chest Pain Last Admin: 11/05/22 07:07 Dose: 0.4 mg Nystatin (Nystatin 100,000 Unit/Gm Powd 15 Gm) 1 applic TOPICAL BID [facility]; Protocol Last Admin: 11/09/22 10:46 Dose: 1 applic Ondansetron HCl (Ondansetron 4 Mg/2 Ml Vial) 4 mg IVP Q8HR PRN PRN Reason: Nausea And Vomiting Last Admin: 11/08/22 08:45 Dose: 4 mg Oxymetazoline HCl (Oxymetazoline 0.05% Nasl [place] 1 [place] Bottle) 3 spray NASAL TID [facility] Last Admin: 11/09/22 17:00 Dose: 3 spray Pantoprazole Sodium (Pantoprazole 40 Mg/10 Ml Vial) 40 mg IVP DAILY [facility] Last Admin: 11/09/22 10:38 Dose: 40 mg Senna (Sennosides 8.6 Mg Tab) 8.6 mg PO DAILY PRN PRN Reason: Constipation Last Admin: 11/09/22 14:00 Dose: 8.6 mg Zolpidem Tartrate (Zolpidem 5 Mg Tab) 5 mg PO HS PRN PRN Reason: Insomnia Past medical history to include: Diabetes, hypertension, hyperlipidemia, [place] in 2010, CAD with stent in 2019 Social history: . No smoking or alcohol Physical examination: VITAL SIGNS: 71, 18, 81/55, 96% on room air GENERAL: BMI 56.2, laying in bed, awake, tired. EYES: Pupils equal. Conjunctiva normal. HEENT: External appearance of nose and ears normal, oral cavity grossly normal. NECK: JVD not raised; masses not palpable. HEART: First and second heart sounds are normal; some edema. LUNGS: Respiratory rate normal; decreased breath sound. ABDOMEN: Soft, nontender, liver spleen not palpable, no masses palpable. PSYCH: Alert and oriented x3; mood and affect tired MUSCULOSKELETAL:No Clubbing/cyanosis;muscles-grossly intact. OA INVESTIGATIONS, reviewed in the clinical context: November 09 dose: White count 19.8 hemoglobin 9.7 platelets 128 sodium 126 potassium 4.2 BUN 55 creatinine 2.55 November 08: White count 13.6 hemoglobin 12.6 sodium 132 potassium 3.3 BUN 46 creatinine 1.47 November 07: White count 12.1 hemoglobin 11.6 platelets 105 November 06: White count 7.8 hemoglobin 11.8 platelets 131 sodium 135 potassium 4.2 BUN 44 creatinine 1.47 2-D echocardiogram [limited close bracket: EF 20%. She seemingly reduced LV function. Previous labs: Creatinine 1.22 on May 2022 Assessment and plan: -Acute non-Q-wave [place]. Known CAD. Aspirin, IV heparin, beta darian -November 08: 1 stent to the OM, 1 stent to circumflex, 2 stents to the LAD by Dr. Osborne. -Cardiogenic shock IV levo fed. - known 3-vessel CAD with chronically occluded RCA, with stents -Severe epistaxis. Possibly precipitated by IV heparin and nasal cannula.: No further episode Seen by Dr. Jayson Resendiz. Nasal packing. -Acute on chronic congestive diastolic heart failure of systolic dysfunction, EF 20 %, ischemic cardiomyopathy: Not improving. Impella placed-November 05-stopped November 08. Coreg. And Entresto and Zaroxolyn held today. -Diabetes mellitus type 2, chronically on insulin: Uncontrolled with hyperglycemia Increase Levemir 36 mg subcu every 12. Add NovoLog 6 units 3 times a day follow Accu-Cheks with sliding scale -Essential hypertension Coreg, Entresto -Acute kidney injury, ATN likely cardiorenal Creatinine was 1.2 in May 2022 -Chronic kidney disease multifactorial, stage III -Morbid obesity BMI 56.2 Weight loss measures. Follow with PCP. -Full code Code, Entresto, Zaroxolyn on hold because of low blood pressure. Gentle hydration. On IV levo fed. Insulin dose adjusted
[2022-11-09] MEDS: ACETAMINOPHEN TAB 325 MG TAB PO PRN (19:06)
[2022-11-09 20:28] LABS: Glucose,Whole Blood 198 mg/dL (70-110)
[2022-11-09] MEDS: METOPROLOL TARTRATE 12.5 MG TAB PO SCH (20:39)
--- NOTE | 2022-11-09 21:56 | PN ---
PROGRESS NOTE DATE OF SERVICE: 11/09/2022 SUBJECTIVE: Vital signs are stable. The patient has successfully undergone insertion of an additional cardiac stent. She is awake, alert, and feeling more comfortable. She is not having any active bleeding at this time. OBJECTIVE: HEENT: The patient is normocephalic. Tympanic membranes are normal. Intranasal examination reveals no evidence of any active bleeding on the right or left side. Examination of the oropharynx does not reveal any bleeding down the posterior pharyngeal wall. Remainder of the head and neck exam and physical exam are unchanged since last visit. ASSESSMENT: Left posterior epistaxis. PLAN: I would like to resume the use of Afrin nasal spray intranasally t.i.d. I will see the patient tomorrow on 11/10/2022, and at that time, I will make a decision whether or not the Afrin nasal spray can be stopped. My understanding is that she will eventually be transferred to a step-down unit/selective care in the next 24 to 48 hours. I will continue to follow this patient while she is in ICU. MONE / SPARKLEN: [id number] / MTDD
[2022-11-10] MEDS: ALPRAZolam 0.25 MG TAB PO PRN ×2 (02:15→11:38)
[2022-11-10] MEDS: ACETAMINOPHEN TAB 325 MG TAB PO PRN (02:15)
[2022-11-10] MEDS: NITROGLYCERIN SL TABS 0.4 MG TAB SUBLINGUAL PRN ×3 (02:15→11:38)
[2022-11-10] MEDS: SODIUM CHLORIDE 0.9% 1,000 ML IV SCH ×2 (05:00→23:11)
[2022-11-10] MEDS: NOREPINEPHRINE 4 MG in SODIUM CHLORIDE 0.9% 250 ML IV SCH ×2 (05:40→13:41)
[2022-11-10 07:37] LABS: Glucose,Whole Blood 124 mg/dL (70-110)
[2022-11-10] MEDS: INSULIN ASPART (NovoLOG) 100 UNIT/ML VIAL SQ SCH ×7 (07:43→20:41)
[2022-11-10 09:17] LABS: African American GFR (CKD) 12 (>60 ml/min/1.73 sqM); Anion Gap 8 mmol/L; Blood Urea Nitrogen 67 mg/dL (7-17); Calcium 8.1 mg/dL (8.4-10.2); Carbon Dioxide 28 mmol/L (22-30); Chloride 93 mmol/L (98-107); Glucose 86 mg/dL (74-99); Non-African American GFR(CKD) 11 (>60 ml/min/1.73 sqM); Potassium 4.3 mmol/L (3.5-5.1); Sodium 129 mmol/L (137-145)
[2022-11-10] MEDS: INSULIN DETEMIR (LEVEMIR) 100 UNIT/ML SYR SQ SCH ×2 (09:29→20:41)
[2022-11-10] MEDS: CLOPIDOGREL 75 MG TAB PO SCH (09:29)
[2022-11-10] MEDS: ASPIRIN 81 MG PO SCH (09:29)
[2022-11-10] MEDS: ATORVASTATIN 80 MG TAB PO SCH (09:29)
[2022-11-10] MEDS: NYSTATIN 100,000 UNIT/GM POWD 15 GM TOPICAL SCH ×2 (09:30→20:40)
[2022-11-10] MEDS: ASCORBIC ACID 500 MG TAB PO SCH (09:30)
[2022-11-10] MEDS: CHOLECALCIFEROL 25 MCG (1000 IU) TABLET PO SCH (09:30)
[2022-11-10] MEDS: PANTOPRAZOLE 40 MG/10 ML VIAL IVP SCH (09:30)
[2022-11-10] MEDS: OXYMETAZOLINE 0.05% NASL SPRAY 1 SPRAY BOTTLE NASAL SCH ×3 (09:30→21:04)
[2022-11-10] MEDS: METOPROLOL TARTRATE 12.5 MG TAB PO SCH ×2 (09:31→20:40)
--- NOTE | 2022-11-10 09:40 | P.PN ---
Subjective Progress Note Date: 11/10/22 The patient is a 77-year-old female with multiple comorbid conditions who presented to the hospital with shortness of breath, edema, and intrascapular pain. She was ruled in for non-ST elevated myocardial infarction and exacerbation of chronic systolic heart failure. Coronary angiogram showed severe triple-vessel disease with chronically occluded RCA, 50% left main disease, 80-90% mid LAD stenosis, 90% ostial left circumflex stenosis, and 90% in-stent restenosis of stent in the OM1. chamber walker was notified and she underwent Impella placement for cardiogenic shock. Echocardiogram reveals EF at 20-25% with moderate MR and moderate TR. On 11/08/2022 the patient underwent stenting of the left main, PCI of the LAD, and PCI of the OM1. Postprocedure the patient has developed hypotension and acute kidney injury. Medications were adjusted yesterday, however she remains on a Levophed drip. Unfortunately due to the patient's obesity, blood pressures are being taken on her forearm which are likely inaccurate. The patient was interviewed and examined resting comfortably in bed. She reports that she is fatigued and tired but denies any cardiac symptoms. She was up to the chair yesterday without dizziness or lightheadedness. GENERAL: Well-appearing, obese female. NECK: Supple without JVD or thyromegaly. LUNGS: Breath sounds diminished to auscultation bilaterally. Respiration equal and unlabored. No wheezes, rales or rhonchi. HEART: Regular rate and rhythm without murmurs, rubs or gallops. S1 and S2 heard. EXTREMITIES: Normal range of motion, mild generalized edema. No clubbing or cyanosis. Bilateral groin sites show no evidence of bleeding or hematoma TELEMETRY: Sinus rhythm with IVCD LABS: Sodium 129, potassium 4.3, BUN 67, creatinine 3.92 IMPRESSION: Non-ST elevated myocardial infarction Severe coronary artery disease with prior stenting and in-stent restenosis Cardiogenic shock requiring high-dose pressors and Impella placement Valvular heart disease Diabetes mellitus Morbid obesity Acute kidney injury, secondary to contrast load Hyponatremia, secondary to ADE PLAN: Wean from Levophed drip Continue current cardiac regimen Continue low-dose IV fluids Further recommendations to be based on clinical course I am dictating on behalf of Dr Jeronimo Adams's history/physical and assessment/plan. Objective - Vital Signs Vital signs: Vital Signs Temp 97.7 F 11/10/22 04:00 Pulse 75 11/10/22 07:00 Resp 38 H 11/10/22 07:00 BP 107/41 11/10/22 07:00 Pulse Ox 94 L 11/10/22 07:00 FiO2 35 11/09/22 04:00 Intake & Output 11/09/22 11/10/22 11/10/22 18:59 06:59 18:59 Intake Total 1580.790 822.685 262.546 Output Total 76 20 20 Balance 1504.790 802.685 242.546 Weight 126 kg Intake: IV 880 600 150 0.9 @ KVO 480 Sodium Chloride 0.9% 1, 400 600 150 000 ml @ 50 mls/hr IV . Q20H [facility] Rx#:[id number] Intake, IV Titration 380.790 222.685 112.546 Amount Heparin Sod,Pork in 0.45% 39.676 NaCl 25,000 unit In 0.45 % NaCl 1 250ml.bag @ 7. 874 UNITS/KG/HR 10 mls/hr IV .Q24H [facility] Rx#: [id number] Norepinephrine 4 mg In 341.114 222.685 112.546 Sodium Chloride 0.9% 250 ml @ 0.03 MCG/KG/MIN 15. 476 mls/hr IV .[id number] [facility] Rx#:[id number] Oral 200 Blood Product 120 Output: Urine 76 20 20 Other: Voiding Method Indwelling Catheter Indwelling Catheter # Voids 0 ABP, PAP, CO, CI - Last Documented Arterial Blood Pressure 124/45 Pulmonary Artery Pressure 61/55 Cardiac Output 5.7 Cardiac Index 2.5 - Labs CBC & Chem 7: 11/09/22 07:16 11/10/22 04:16 Labs: Abnormal Lab Results - Last 24 Hours (Table) 11/09/22 11/09/22 11/09/22 Range/Units 11:08 14:38 16:46 Sodium (137-145) mmol/L Chloride (98-107) mmol/L BUN (7-17) mg/dL Creatinine (0.52-1.04) mg/dL POC Glucose (mg/dL) 396 H 172 H (70-110) mg/dL Calcium (8.4-10.2) mg/dL Lactate Dehydrogenase 775 H (120-246) U/L 11/09/22 11/10/22 11/10/22 Range/Units 20:26 04:16 04:16 Sodium 129 L (137-145) mmol/L Chloride 93 L (98-107) mmol/L BUN 67 H (7-17) mg/dL Creatinine 3.92 H (0.52-1.04) mg/dL POC Glucose (mg/dL) 198 H (70-110) mg/dL Calcium 8.1 L (8.4-10.2) mg/dL Lactate Dehydrogenase 620 H (120-246) U/L 11/10/22 Range/Units 07:36 Sodium (137-145) mmol/L Chloride (98-107) mmol/L BUN (7-17) mg/dL Creatinine (0.52-1.04) mg/dL POC Glucose (mg/dL) 124 H (70-110) mg/dL Calcium (8.4-10.2) mg/dL Lactate Dehydrogenase (120-246) U/L
--- NOTE | 2022-11-10 10:55 | P.NPCON ---
History of Present Illness - Reason for Consult acute renal failure - History of Present Illness Patient is a 77-year-old female with history of coronary artery disease, type 2 diabetes hypertension and hyperlipidemia. She was admitted to the hospital with worsening dyspnea and ruled in for non-ST elevation VA. Underlying cardiomyopathy with ejection fraction of 35-40% with severe LV dysfunction and mitral regurgitation. Patient had a cardiac catheterization on 11/05/2022 for cardiogenic shock and acute non-ST elevation VA. Patient was noted to have three-vessel disease and had right heart catheterization later on the same day with placement of impella. Patient is also being considered for CABG. Another cardiac catheterization performed on 11/08/2022 status post stents to LAD and circumflex and placement of Impala again. Serum creatinine had been around 1.3-1.4 mg/dL and subsequently increased on 928-2.5 mg/dL and to date is 3.9. Patient had minimal urine output overnight at 02 5 mL an hour. This morning urine output increased to about 100 for the last hour. Patient has been hypotensive and currently maintained on small dose of levo fed. Blood pressure had been as low as 75 mmHg systolic. Maintained on saline at 50 mL an hour. Review of Systems As per HPI Past Medical History Past Medical History: Coronary Artery Disease (CAD), Cancer, Chest Pain / Angina, Heart Failure, Diabetes Mellitus, Hyperlipidemia, Hypertension, Myocardial Infarction (VA), Pneumonia Additional Past Medical History / Comment(s): 6 stents placed and 2 heart attacks; uterine cancer 2011 Last Myocardial Infarction Date:: 2018 History of Any Multi-Drug Resistant Organisms: None Reported Past Surgical History: Cholecystectomy, Heart Catheterization With Stent, Hysterectomy, Orthopedic Surgery Additional Past Surgical History / Comment(s): right knee replacement-2017. D&C x 2. History of cardiac stent placement x9. June 2018 and in May 2022. Left leg vein stripping Past Anesthesia/Blood Transfusion Reactions: No Reported Reaction Date of Last Stent Placement:: 2018 Past Psychological History: No Psychological Hx Reported Smoking Status: Never smoker Past Alcohol Use History: None Reported Past Drug Use History: None Reported - Past Family History Mother Family Medical History: CVA/TIA, Myocardial Infarction (VA) Additional Family Medical History / Comment(s): at 94 years old Father Family Medical History: CVA/TIA Additional Family Medical History / Comment(s): Dietd at 98 years old Brother(s) Family Medical History: Cancer, Coronary Artery Disease (CAD) Additional Family Medical History / Comment(s): Heart disease diagnosed in his 40s Son(s) Family Medical History: No Reported History Daughter(s) Family Medical History: No Reported History Medications and Allergies Home Medications Medication Instructions Recorded Confirmed Type Clopidogrel Bisulfate [Plavix] 75 mg PO DAILY 06/20/18 11/02/22 History Nitroglycerin Sl Tabs [Nitrostat] 0.4 mg SUBLINGUAL Q5M PRN #25 tab 06/22/18 11/02/22 Rx Insulin Lispro Protamin/Lispro 1 - 55 unit SQ BID 03/21/22 11/02/22 History [humaLOG MIX 75-25 Kwikpen] Ascorbic Acid [Vitamin C] 1,000 mg PO DAILY 03/22/22 11/02/22 History Ergocalciferol [Vitamin D2 (1250 1,250 mcg PO MO 03/22/22 11/02/22 History Mcg = 64361 Iu)] Magnesium Oxide [Magnesium] 500 mg PO DAILY 03/22/22 11/02/22 History Spironolactone [Aldactone] 12.5 mg PO DAILY #45 tablet 03/22/22 11/02/22 Rx Atorvastatin [Lipitor] 80 mg PO DAILY #30 tab 06/02/22 11/02/22 Rx Cholecalciferol [Vitamin D3 (25 25 mcg PO DAILY 11/02/22 11/02/22 History Mcg = 1000 Iu)] Furosemide [Lasix] 40 mg PO DAILY 11/02/22 11/02/22 History Isosorbide Mononitrate ER [Imdur] 60 mg PO DAILY 11/02/22 11/02/22 History Sacubitril/Valsartan [Entresto 24 1 tab PO DAILY 11/02/22 11/02/22 History mg-26 mg Tablet] Vitamin B Complex 1 cap PO DAILY 11/02/22 11/02/22 History carvediloL [Coreg] 3.125 mg PO DIRECTED 11/02/22 11/02/22 History Allergies Allergy/AdvReac Type Severity Reaction Status Date / Time Penicillins Allergy Rash/Hives/ Verified 11/02/22 18:04 Blistering Physical Exam Vitals: Vital Signs Temp Pulse Resp BP Pulse Ox 11/10/22 10:00 85 17 101/47 95 11/10/22 09:30 88 18 95 11/10/22 09:00 77 11 L 95/61 96 11/10/22 08:30 76 23 125/48 94 L 11/10/22 08:00 98.0 F 78 24 118/46 92 L 11/10/22 07:30 75 26 H 112/37 92 L 11/10/22 07:00 75 38 H 107/41 94 L 11/10/22 06:45 73 11 L 106/37 93 L 11/10/22 06:30 73 27 H 106/37 94 L 11/10/22 06:15 76 37 H 106/37 93 L 11/10/22 06:00 75 28 H 106/37 92 L 11/10/22 05:45 76 24 106/37 91 L 11/10/22 05:30 75 30 H 106/37 90 L 11/10/22 05:15 73 33 H 93 L 11/10/22 05:00 74 30 H 94 L 11/10/22 04:45 75 30 H 92 L 11/10/22 04:30 77 23 108/51 91 L 11/10/22 04:15 75 28 H 100/47 95 11/10/22 04:00 97.7 F 74 27 H 99/37 95 11/10/22 03:45 74 21 102/44 94 L 11/10/22 03:30 75 31 H 81/47 94 L 11/10/22 03:15 73 32 H 94/42 94 L 11/10/22 03:00 75 27 H 75/56 92 L 11/10/22 02:45 80 18 86/52 86 L 11/10/22 02:30 75 16 94/50 92 L 11/10/22 02:15 82 25 H 109/47 96 11/10/22 02:00 78 4 L 107/55 11/10/22 01:45 25 H 101/54 100 11/10/22 01:30 78 14 109/47 83 L 11/10/22 01:15 75 24 100/48 72 L 11/10/22 01:00 73 26 H 97/46 70 L 11/10/22 00:45 70 22 99/45 65 L 11/10/22 00:30 76 29 H 101/49 94 L 11/10/22 00:15 70 24 97/49 97 11/10/22 00:05 98 F 72 25 H 97/49 94 L 11/09/22 23:45 69 23 108/44 97 11/09/22 23:30 75 35 H 101/42 94 L 11/09/22 23:23 72 26 H 101/42 96 11/09/22 23:15 75 25 H 106/47 96 11/09/22 23:00 78 24 118/46 93 L 11/09/22 22:45 79 25 H 122/46 95 11/09/22 22:30 85 19 111/52 98 11/09/22 22:15 90 4 L 116/50 98 11/09/22 22:00 86 7 L 106/57 97 11/09/22 21:45 87 18 106/46 89 L 11/09/22 21:30 88 13 103/50 97 11/09/22 21:15 96 13 115/35 95 11/09/22 21:00 100 19 109/60 97 11/09/22 20:45 86 32 H 100/76 96 11/09/22 20:30 84 19 100/76 98 11/09/22 20:15 81 33 H 92/22 99 11/09/22 20:00 97.7 F 76 10 L 101/42 96 11/09/22 19:45 80 10 L 101/65 97 11/09/22 19:30 80 26 H 106/45 88 L 11/09/22 19:15 78 7 L 81/53 99 11/09/22 19:00 78 29 H 93/76 97 11/09/22 18:45 78 19 75/59 99 11/09/22 18:30 75 101/48 98 11/09/22 18:15 78 86/33 99 11/09/22 18:05 75 23 86/33 96 11/09/22 17:45 78 10 L 53/29 94 L 11/09/22 17:30 75 29 H 84/55 97 11/09/22 17:15 83 12 77/57 11/09/22 17:00 80 13 118/30 11/09/22 16:45 82 16 111/42 11/09/22 16:30 77 16 118/45 94 L 11/09/22 16:15 76 20 101/43 96 11/09/22 16:00 68 24 81/41 91 L 11/09/22 15:45 64 12 98/40 95 11/09/22 15:30 68 84/44 95 11/09/22 15:15 67 24 83/40 92 L 11/09/22 15:00 73 23 68/40 97 11/09/22 14:45 73 16 87/64 97 11/09/22 14:30 71 18 107/39 96 11/09/22 14:15 87 29 H 75/34 98 11/09/22 14:00 78 17 81/55 96 11/09/22 13:45 86 15 95/48 95 11/09/22 13:30 73 21 105/45 91 L 11/09/22 13:15 76 21 95/49 92 L 11/09/22 13:00 71 22 100/54 97 11/09/22 12:45 73 24 98/41 88 L 11/09/22 12:30 72 17 90/46 95 11/09/22 12:15 81 10 L 99/42 90 L 11/09/22 12:00 99.5 F 78 24 111/55 95 11/09/22 11:45 74 14 89/36 97 11/09/22 11:30 85 16 112/41 96 11/09/22 11:15 69 10 L 97/43 94 L 11/09/22 11:00 76 26 H 98/39 95 11/09/22 10:45 78 21 96/41 96 Intake and Output 11/09/22 11/10/22 11/10/22 22:59 06:59 14:59 Intake Total 623.105 622.685 312.546 Output Total 35 5 120 Balance 588.105 617.685 192.546 Intake: IV 400 400 200 Sodium Chloride 0.9% 1, 400 400 200 000 ml @ 50 mls/hr IV . Q20H [facility] Rx#:[id number] Intake, IV Titration 103.105 222.685 112.546 Amount Norepinephrine 4 mg In 103.105 222.685 112.546 Sodium Chloride 0.9% 250 ml @ 0.03 MCG/KG/MIN 15. 476 mls/hr IV .[id number] [facility] Rx#:[id number] Blood Product 120 Output: Urine 35 5 120 Other: Voiding Method Indwelling Catheter Indwelling Catheter Indwelling Catheter # Voids 0 Weight 126 kg ABP, PAP, CO, CI - Last 8 Hours Cardiac Output 5.7 Cardiac Output 5.7 Cardiac Output 5.7 Cardiac Output 5.7 Cardiac Output 5.7 Cardiac Output 5.7 Cardiac Output 5.7 Cardiac Output 5.7 Cardiac Output 5.7 Cardiac Output 5.7 Cardiac Output 5.7 Cardiac Output 5.7 Cardiac Output 5.7 Cardiac Output 5.7 Cardiac Output 5.7 Cardiac Output 5.7 Cardiac Output 5.7 Cardiac Output 5.7 Cardiac Output 5.7 Cardiac Output 5.7 Cardiac Output 5.7 Cardiac Output 5.7 Cardiac Index 2.5 Cardiac Index 2.5 Cardiac Index 2.5 Cardiac Index 2.5 Cardiac Index 2.5 Cardiac Index 2.5 Cardiac Index 2.5 Cardiac Index 2.5 Cardiac Index 2.5 Cardiac Index 2.5 Cardiac Index 2.5 Cardiac Index 2.5 Cardiac Index 2.5 Cardiac Index 2.5 Cardiac Index 2.5 Cardiac Index 2.5 Cardiac Index 2.5 Cardiac Index 2.5 Cardiac Index 2.5 Cardiac Index 2.5 Cardiac Index 2.5 Cardiac Index 2.5 Patient is awake, comfortable, in no acute distress Examination of the heart S1 and S2 Examination of the lungs decreased breath sounds at the bases Abdomen is soft nontender, obese Examination of lower extremities shows trace edema [employer] exam grossly intact Results - Lab Results Most recent lab results Calcium 8.1 mg/dL (8.4-10.2) L 11/10/22 04:16 Magnesium 2.0 mg/dL (1.6-2.3) 11/06/22 05:47 11/09/22 07:16 11/10/22 04:16 Assessment and Plan Assessment: 1. Acute kidney injury ATN most ischemic ATN from hypotension and a component of contrast-induced nephrotoxicity as well. Urine output has now increased. Check UA and ultrasound of the kidneys 2. Hyponatremia, currently euvolemic and slightly improved from yesterday. Patient is maintained on normal saline at 50 mL an hour which I will continue. 3. Acute non-ST elevation VA status post initial cardiac catheterization on 11/05/2022 followed by right heart catheterization the same day and another cardiac catheterization on 11/08/2022 with multiple coronary artery stent placement and Impala. 4. Hypotension from cardiogenic shock 5. Chronic kidney disease NKF stage IIIa with baseline creatinine around 1.2 mg/dL secondary to nephrosclerosis. UA was completely benign in May 2022. Plan: Continue with saline at 50 mL an hour Check UA Check ultrasound of the kidneys Continue to avoid nephrotoxic agents We will continue to monitor closely for need for renal replacement therapy. So far the urine output seems to be improving. Thank you for the consultation. We will continue to follow the patient with you during her hospitalization
--- NOTE | 2022-11-10 11:18 | P.PN ---
Subjective Progress Note Date: 11/10/22 I am seeing this patient in new consultation today 11/06/2022 in the intensive care unit after the patient presented with non-ST elevation DC and cardiogenic shock requiring Impella insertion. Patient is a 77-year-old white female with past medical history significant for multivessel coronary artery disease with multiple previous coronary stents. Most recent coronary stenting done in May, to the first obtuse marginal branch of the circumflex and main circumflex coronary artery. Patient also has significant history of hypertension, hyperlipidemia, diabetes mellitus type 2, obesity, and chronic kidney disease. Her primary care provider is a nurse practitioner, Mickie Saenz, out of Dr. Miller office in [place]. Patient presented back on October with complaints of intermittent shortness of breath and chest pressure that started on the preceding Sunday or Sunday. This was accompanied with increased lower extremity swelling. She does have chronic lymphedema. Troponins had been trending up at 0.98, 1.59, and 2.2. ECG on arrival showed sinus tachycardia with possible septal-lateral myocardial infarction of indeterminate age, and right axis deviation. She was diagnosed with a non-ST elevation DC. She was originally admitted to the cardiac stepdown unit. Echocardiogram demonstrated a reduced ejection fraction of 20-25%, moderate mitral regurgitation, and moderate tricuspid regurgitation. She was taken for cardiac catheterization yesterday, which demonstrated the patient's multivessel coronary artery disease including 80-90% stenosis involving the mid LAD, 50% stenosis of the distal left main, 90% stenosis of the circumflex, and 90% restenosis of the previously stented obtuse marginal branch, there was chronic RCA stenosis with collaterals. Patient developed shock like symptoms, had elevated left ventricular end-diastolic pressure of 35-40 mmHg, and a Impella assist device was inserted. She was subsequently transferred to the intensive care unit. At this point, we were consulted yesterday afternoon. Patient is currently lying supine in bed, on 2 L/m nasal cannula, in no acute distress. Most recent chest x-ray from October was consistent with congestive heart failure with cardiomegaly, pulmonary vascular congestion, and bilateral pleural effusions. She is being diuresed with Lasix 40 mg every 8 hours. The Impella is inserted through the right groin. Flow is at P9. There is a pulmonary artery catheter with cardiac output/cardiac index reading 5.5/2.4 respectively. Pulmonary artery pressures are 44/18. Blood pressure is hypotensive at 75/52 mmHg. Heart rhythm appears normal sinus around 70 bpm on bedside monitor. Cardiology has just started the patient on norepinephrine, which was initiated at 0.05 mcg/kg/m. Heparin is infusing per Impella protocol. PTT is therapeutic. Fibrinogen level 374 There was small amount of oozing from the Impella insertion site. No hematoma formation. Pulses were found bilaterally with Doppler. Most recent CBC from yesterday shows a WBC count 7.9, hemoglobin 11.4, hematocrit 33.3, platelets 142. BMP from yesterday shows sodium 133, potassium 3.5, chloride 101, serum bicarb 27, BUN 44, creatinine improved to 1.42, glucose 185. Potassium is being replaced per protocol. Currently, the plan is for evaluation by cardiothoracic services for possible surgical revascularization. Impella is going to remain in place for now. Her prognosis is currently guarded related to above-mentioned c omorbidities. She will be monitored in the intensive care unit. The patient is seen today 11/07/2022 in follow-up in the intensive care unit. She is currently resting in bed. Awake and alert in no acute distress. She is having issues with ongoing epistaxis. She's currently on room air. She does remain on a heparin drip. Normal saline at 30 MLS per hour. ImPella remains in place to the right groin. Pulmonary artery catheter and right groin. Cardiac output 5.7. Cardiac index 2.5. PA pressure 51/41. CVP 12. Mean arterial blood pressure 74. Chest x-ray reveals cardiomegaly with diffuse interstitial prominence suspect CHF. Left lower lobe consolidation and small bilateral effusions. White count 12.1. Hemoglobin 11.6. Platelets 105. Sodium 1:30. Potassium 3.9. Bicarb 35. BUN 39. Creatinine 1.38. Glucose 182. AST 53. ALT 21. The plan is return to the [facility] tomorrow. Remains on Lasix 80 mg IV every 8 hours. Currently in a -5.7 L balance. The patient is seen today 11/08/2022 in follow-up in the intensive care unit. She is awake and alert in no acute distress. Continue O2 saturations in the 90s on a Ventimask at 35% FiO2. No further epistaxis. Receiving Afrin nasal spray. She remains on heparin drip. She has normal saline at KVO. The Impala remains in place. Currently set at P-8. Cardiac output 3.6. Plan is to return to the CVL today. White count 13.6. Hemoglobin 12.6. Platelets 108. Sodium 132. Potassium 3.3. Bicarb 40. BUN 46. Creatinine 1.47. Glucose 126. LDH 1334. Albumin 3.0. She remains on IV Lasix and Zaroxolyn. Currently in a -1.2 L balance. Chest x-ray continues show cardiomegaly with diffuse interstitial prominence. Stable compared to previous The patient is seen today 11/09/2022 in follow-up in the intensive care unit. She is sitting up in bed. Awake and alert in no acute distress. She is maintaining good O2 saturations in the 90s on room air. Chest x-ray shows mild cardiomegaly. Improved appearance of the pulmonary vascular. No acute process seen. Her Impella was removed yesterday. Heparin drip is off. She is requiring norepinephrine at 0.07 mcg/kg/m. She has normal saline at 50 ML's per hour. She did undergo stenting 4 yesterday and remains on Plavix and aspirin. White count 19.8. Hemoglobin 9.7. Platelets 128. Sodium 126. Potassium 4.2. Bicarb 31. BUN 55. Creatinine 2.55. Glucose 290. LDH 833. The patient is seen today 11/10/2022 in follow-up in the intensive care unit. She is awake and alert in no acute distress. Maintaining good O2 saturations in the 90s on room air. She is still requiring norepinephrine at 0.03 mcg/kg/m. Normal saline at 50 ML's per hour. Sodium 129. Potassium 4.3. Bicarb 28. BUN 67. Creatinine 3.92. LDH 620. Glucose 124. Nephrology has been consulted. She remains on Plavix and aspirin. Objective - Vital Signs Vital signs: Vital Signs Temp 98.0 F 11/10/22 08:00 Pulse 85 11/10/22 10:00 Resp 17 11/10/22 10:00 BP 101/47 11/10/22 10:00 Pulse Ox 95 11/10/22 10:00 FiO2 35 11/09/22 04:00 Intake & Output 11/09/22 11/10/22 11/10/22 18:59 06:59 18:59 Intake Total 1580.790 822.685 312.546 Output Total 76 20 120 Balance 1504.790 802.685 192.546 Weight 126 kg Intake: IV 880 600 200 0.9 @ KVO 480 Sodium Chloride 0.9% 1, 400 600 200 000 ml @ 50 mls/hr IV . Q20H [facility] Rx#:[id number] Intake, IV Titration 380.790 222.685 112.546 Amount Heparin Sod,Pork in 0.45% 39.676 NaCl 25,000 unit In 0.45 % NaCl 1 250ml.bag @ 7. 874 UNITS/KG/HR 10 mls/hr IV .Q24H [facility] Rx#: [id number] Norepinephrine 4 mg In 341.114 222.685 112.546 Sodium Chloride 0.9% 250 ml @ 0.03 MCG/KG/MIN 15. 476 mls/hr IV .[id number] [facility] Rx#:[id number] Oral 200 Blood Product 120 Output: Urine 76 20 120 Other: Voiding Method Indwelling Catheter Indwelling Catheter Indwelling Catheter # Voids 0 ABP, PAP, CO, CI - Last Documented Arterial Blood Pressure 124/45 Pulmonary Artery Pressure 61/55 Cardiac Output 5.7 Cardiac Index 2.5 - Exam GENERAL EXAM: Alert, pleasant 77-year-old female, sitting up in bed, on room air, comfortable in no apparent distress. HEAD: Normocephalic and atraumatic EYES: Normal reaction of pupils, equal size. NOSE: Clear with pink turbinates. THROAT: No erythema or exudates. NECK: No masses. Positive mild JVD CHEST: No chest wall deformity. LUNGS: Equal air entry with bibasilar inspiratory crackles. CVS: S1 and S2 normal with no audible murmur, regular rhythm. No extra heart sounds ABDOMEN: Obese abdomen, no hepatosplenomegaly, active bowel sounds, no guarding or rigidity. SPINE: No scoliosis or deformity SKIN: No rashes, bilateral lower extremity chronic venous changes. CENTRAL NERVOUS SYSTEM: No focal deficits, tone is normal in all 4 extremities. EXTREMITIES: There is bilateral lower extremity 1-2+ pitting edema. Movement and sensation intact. - Labs CBC & Chem 7: 09/28/23 07:16 11/10/22 04:16 Labs: Abnormal Lab Results - Last 24 Hours (Table) 11/09/22 11/09/22 11/09/22 Range/Units 14:38 16:46 20:26 Sodium (137-145) mmol/L Chloride (98-107) mmol/L BUN (7-17) mg/dL Creatinine (0.52-1.04) mg/dL POC Glucose (mg/dL) 172 H 198 H (70-110) mg/dL Calcium (8.4-10.2) mg/dL Lactate Dehydrogenase 775 H (120-246) U/L 11/10/22 11/10/22 11/10/22 Range/Units 04:16 04:16 07:36 Sodium 129 L (137-145) mmol/L Chloride 93 L (98-107) mmol/L BUN 67 H (7-17) mg/dL Creatinine 3.92 H (0.52-1.04) mg/dL POC Glucose (mg/dL) 124 H (70-110) mg/dL Calcium 8.1 L (8.4-10.2) mg/dL Lactate Dehydrogenase 620 H (120-246) U/L Assessment and Plan Assessment: Non-ST elevation myocardial infarction, status post heart catheterization on 11/05 demonstrating multivessel coronary artery disease. Status post stenting 4 on 11/08/2022 Cardiogenic shock, status post insertion of a Impella catheter on 11/05 and removed on 11/08/2022. Also, required low-dose norepinephrine. Recovered and off pressors Acute hypoxemic respiratory failure, improved, currently on 35% FiO2 via Ventimask, secondary to exacerbation of systolic congestive heart failure. Most recent chest x-ray from today 11/08/2022 is consistent with congestive heart failure with cardiomegaly, pulmonary vascular congestion, and bilateral pleural effusions. Echocardiogram demonstrated a reduced ejection fraction of 20-25%, moderate mitral regurgitation, and moderate tricuspid regurgitation. Epistaxis secondary to blood thinners improved and on Afrin nasal spray Acute on chronic kidney disease, worsening following contrast History of coronary artery disease with multiple previous PCI and coronary stenting with previous in-stent restenosis History of hypertension Hyperlipidemia Diabetes mellitus type 2 Chronic kidney disease stage III Morbid obesity, with a BMI of 54.6 kg/m Lifelong nonsmoker Plan: The patient was seen and evaluated Labs and medications reviewed Currently on room air Remains on Plavix and aspirin Titrate the norepinephrine as tolerated Nephrology consult Condition remains guarded We'll continue to follow I have personally seen and examined the patient, performed the documentation and the assessment and plan as written. Number of minutes spent on the visit: 10.
[2022-11-10 12:07] LABS: Glucose,Whole Blood 194 mg/dL (70-110)
[2022-11-10 12:22] LABS: Amorphous Sediment,Urine Rare /hpf; Appearance,Urine Cloudy (Clear); Bilirubin,Urine Negative (Negative); Blood,Urine Trace (Negative); Color,Urine Yellow; Glucose,Urine (UA) Negative (Negative); Hyaline Casts,Urine 6 /lpf (0-2); Ketones,Urine Negative (Negative); Leukocyte Esterase,Urine Large (Negative); Mucus,Urine Few /hpf; Nitrite,Urine Positive (Negative); Protein,Urine Trace (Negative); RBC,Urine 10 /hpf (0-5); Specific Gravity,Urine 1.027 (1.001-1.035); Urobilinogen,Urine <2.0 mg/dL (<2.0); WBC,Urine 27 /hpf (0-5)
[2022-11-10] MEDS: ISOSORBIDE MONONITRATE ER 60 MG TAB.ER.24H PO SCH (13:36)
[2022-11-10] MEDS: carvediloL 3.125 MG TAB PO SCH (13:36)
[2022-11-10] MEDS: SACUBITRIL/VALSARTAN 24 MG-26 MG TABLET PO SCH (13:37)
[2022-11-10] MEDS: metOLazone 5 MG TAB PO SCH (13:37)
--- NOTE | 2022-11-10 14:10 | US ---
EXAMINATION TYPE: US kidneys/renal and bladder DATE OF EXAM: 11/10/2022 COMPARISON: 12/27/2016 CLINICAL INDICATION: Female, 77 years old with history of ade; ADE EXAM MEASUREMENTS: Right Kidney: 6.4x4.3x5.4 cm Left Kidney: 9.9x5.6x4.5 cm Right Kidney: wnl Left Kidney: renal cyst again seen: 2.0x1.9x2.0cm Not visualized as clearly as in 2017, limitations d ue to body habitus Bladder: not visualized, pt on catheter Bilateral Jets seen: No Renal cortex is preserved bilaterally. No evidence of nephrolithiasis. limitations due to body habitus and bowel gas IMPRESSION: 2 cm left renal lesion is stable in size but does not meet the criteria of a simple cyst by trinioun d. Previous CT scan demonstrated a nonsimple appearing left renal lesion and therefore MRI recommende d.
--- NOTE | 2022-11-10 14:27 | P.PN ---
Progress Note - Text Progress Note Date: 11/10/22 Hospital course. follows with Dr. Miller. Dramatic Critic Dr. Krause. .77 years old female with past medical history of History of coronary artery disease status post stenting, diabetes mellitus, hypertension, hyperlipidemia Patient presents because of worsening dyspnea over one week with possible elements of orthopnea. Also patient reports worsening of leg swelling. Occasional coughing. Occasional chest pain when lying down, last episode was 2 days ago currently patient denies any chest pain or discomfort and epigastric pain or neck pain. She does not look in respiratory distress when she talks easily and she does not use accessory respiratory muscles. She denies any urinary GI or neurological specific symptoms to me. She denies smoking alcohol or illicit drugs. Her PCP is Dr. Miller and her tack welder is Dr. Krause Patient is mildly tachycardic and tachypneic labs reviewed, CBC, INR within the reference range. Creatinine is elevated 1.4, and 1.3 which is at or close to baseline of 1.2-1.4. mildly elevated lactic acid came back to normal. Troponin 1.5, 2.2 Chest x-ray: Cardiomegaly with pulmonary vascular congestion and bilateral pleural effusion. Possible congestive heart failure Echocardiogram from : Ejection fraction of 35-40% with dilated left ventricle with severe LV dysfunction and 2+ mitral regurgitation 11/04: Patient seen and evaluated bedside, home medications reviewed. Started on high-dose correctional insulin as well as Lantus. Aldactone discontinued. Continue patient on IV Lasix, continue IV heparin planned for cardiac catheterization 11/05: Patient seen and evaluated bedside. Patient is status post cardiac catheterization transferred to medical ICU. Status post impela placement, patient transferred to medical ICU. Cardiology and MICU team consulted and notified about new consult. Patient evaluated alert and oriented times 3.Care plan discussed with family denies of chest pain November 06: I assumed care of the patient today. ICU. Laying in bed. No chest pain. Currently on Impella. 2 L dose cannula. Patient this afternoon is nothing by mouth. High risk for surgery, pending decision as per cardiology. For further intervention. This admission was found over in-stent stenosis of OM1. November 07: ICU. Had a severe episode of epistaxis this morning. ENT was consulted. Nasal packing. We will use nasal cannula through the polyps to keep the oxygen up. Currently plan for patient to go back to the cardiac skilled labor t omorrow. Eating. Impella P-8. IV heparin November 08: ICU. Today patient changing of the cardiac skilled labor by Dr. Osborne. Patient did get us stent to the obtuse marginal, circumflex. 2 stents to the LAD. Postprocedure brought back to the ICU. Started on before. 0.11 g. Sinus rhythm. Laying in bed awake tired. Is on Ventimask. No further epistaxis. Since yesterday. Patient be started on IV heparin after the sheath is pulled out. November 09: ICU. Laying in bed. Feeling very tired. On levo fed. Entresto diuretics have been held. Gentle IV fluids per cardiology. Nitrates held. November 10: ICU. In bed. Continues to feel very tired. Remains on levo fed. Lopressor held this morning because of low blood pressure. On IV fluids 50 mL an hour. Eating some. Discussed. Worsening kidney function. Active Medications Acetaminophen (Acetaminophen Tab 325 Mg Tab) 650 mg PO Q4HR PRN PRN Reason: Pain Last Admin: 11/09/22 19:06 Dose: 650 mg Al Hydroxide/Mg Hydroxide (Mag Hydrox/Al Hydrox/Simeth 30 Ml Cup) 30 ml PO Q4HR PRN PRN Reason: Heartburn Alprazolam (Alprazolam 0.25 Mg Tab) 0.25 mg PO Q6HR PRN PRN Reason: Mild Anxiety Last Admin: 11/10/22 11:38 Dose: 0.25 mg Alprazolam (Alprazolam 0.5 Mg Tab) 0.5 mg PO Q6HR PRN PRN Reason: Moderate Anxiety Ascorbic Acid (Ascorbic Acid 500 Mg Tab) 1,000 mg PO DAILY PENDING SALE TO [facility] Last Admin: 11/10/22 09:30 Dose: 1,000 mg Aspirin (Aspirin 81 Mg) 162 mg PO DAILY PENDING SALE TO [facility] Last Admin: 11/10/22 09:29 Dose: 162 mg Atorvastatin Calcium (Atorvastatin 80 Mg Tab) 80 mg PO DAILY PENDING SALE TO [facility] Last Admin: 11/10/22 09:29 Dose: 80 mg Atropine Sulfate (Atropine Sulfate 0.1 Mg/Ml 10ml Syringe) 0.5 mg IV ONCE PRN PRN Reason: Symptomatic Bradycardia Cholecalciferol (Cholecalciferol 25 Mcg (1000 Iu) Tablet) 25 mcg PO DAILY PENDING SALE TO [facility] Last Admin: 11/10/22 09:30 Dose: 25 mcg Clopidogrel Bisulfate (Clopidogrel 75 Mg Tab) 75 mg PO DAILY ROHIT Last Admin: 11/10/22 09:29 Dose: 75 mg Dextrose/Water (Dextrose 50% Syringe 50 Ml) 25 ml IVP PER PROTOCOL PRN; Protocol PRN Reason: Hypoglycemia Dextrose/Water (Dextrose 50% Syringe 50 Ml) 50 ml IVP PER PROTOCOL PRN; Protocol PRN Reason: Hypoglycemia Norepinephrine Bitartrate 4 mg (/ Sodium Chloride) 254 mls @ 15.476 mls/hr IV .[id number] PENDING SALE TO [facility]; Protocol Last Admin: 11/10/22 13:41 Dose: 0.03 mcg/kg/min, 15.476 mls/hr Sodium Chloride (Saline 0.9%) 1,000 mls @ 50 mls/hr IV .Q20H PENDING SALE TO [facility] Last Admin: 11/10/22 05:00 Dose: 50 mls/hr Insulin Aspart (Insulin Aspart (Novolog) 100 Unit/Ml Vial) 0 unit SQ ACHS PENDING SALE TO [facility]; Protocol Last Admin: 11/10/22 12:10 Dose: 4 unit Insulin Aspart (Insulin Aspart (Novolog) 100 Unit/Ml Vial) 6 unit SQ AC-TID PENDING SALE TO [facility] Last Admin: 11/10/22 12:11 Dose: 6 unit Insulin Detemir (Insulin Detemir (Levemir) 100 Unit/Ml Syr) 36 unit SQ Q12H PENDING SALE TO [facility] Last Admin: 11/10/22 09:29 Dose: 36 unit Metoprolol Tartrate (Metoprolol Tartrate 12.5 Mg Tab) 12.5 mg PO BID PENDING SALE TO [facility] Last Admin: 11/10/22 09:31 Dose: Not Given Miscellaneous Information (Potassium Replacement Protocol 1 Each Misc) 1 each MISCELLANE DAILY PRN; Protocol PRN Reason: Per Protocol Miscellaneous Information (Rx Info: Iv Contrast Was Given 1 Each Misc) 1 each M ISCELLANE DAILY PRN PRN Reason: Per Protocol Stop: 11/10/22 22:42 Morphine Sulfate (Morphine Sulfate 4 Mg/Ml Syringe) 4 mg IV Q5M PRN PRN Reason: Chest Pain Nitroglycerin (Nitroglycerin Sl Tabs 0.4 Mg Tab) 0.4 mg SUBLINGUAL Q5M PRN PRN Reason: Chest Pain Last Admin: 11/10/22 11:38 Dose: 0.4 mg Nystatin (Nystatin 100,000 Unit/Gm Powd 15 Gm) 1 applic TOPICAL BID PENDING SALE TO [facility]; Protocol Last Admin: 11/10/22 09:30 Dose: 1 applic Ondansetron HCl (Ondansetron 4 Mg/2 Ml Vial) 4 mg IVP Q8HR PRN PRN Reason: Nausea And Vomiting Last Admin: 11/08/22 08:45 Dose: 4 mg Oxymetazoline HCl (Oxymetazoline 0.05% Nasl Worton 1 Worton Bottle) 3 spray NASAL TID ROHIT Last Admin: 11/10/22 09:30 Dose: 3 spray Pantoprazole Sodium (Pantoprazole 40 Mg/10 Ml Vial) 40 mg IVP DAILY PENDING SALE TO [facility] Last Admin: 11/10/22 09:30 Dose: 40 mg Senna (Sennosides 8.6 Mg Tab) 8.6 mg PO DAILY PRN PRN Reason: Constipation Last Admin: 11/09/22 14:00 Dose: 8.6 mg Zolpidem Tartrate (Zolpidem 5 Mg Tab) 5 mg PO HS PRN PRN Reason: Insomnia Past medical history to include: Diabetes, hypertension, hyperlipidemia, CA in 2010, CAD with stent in 2019 Social history: . No smoking or alcohol Physical examination: VITAL SIGNS: 97.7, 80, 20, 84/43, 94% room air GENERAL: , laying in bed, awake, tired. EYES: Pupils equal. Conjunctiva normal. HEENT: External appearance of nose and ears normal, oral cavity grossly normal. NECK: JVD not raised; masses not palpable. HEART: First and second heart sounds are normal; some edema. LUNGS: Respiratory rate normal; decreased breath sound. ABDOMEN: Soft, nontender, liver spleen not palpable, no masses palpable. PSYCH: Alert and oriented x3; mood and affect tired MUSCULOSKELETAL:No Clubbing/cyanosis;muscles-grossly intact. OA INVESTIGATIONS, reviewed in the clinical context: November 10: Sodium 129 potassium 4.3 creatinine 3.9 to November 09 dose: White count 19.8 hemoglobin 9.7 platelets 128 sodium 126 potassium 4.2 BUN 55 creatinine 2.55 November 08: White count 13.6 hemoglobin 12.6 sodium 132 potassium 3.3 BUN 46 creatinine 1.47 November 07: White count 12.1 hemoglobin 11.6 platelets 105 November 06: White count 7.8 hemoglobin 11.8 platelets 131 sodium 135 potassium 4.2 BUN 44 creatinine 1.47 2-D echocardiogram [limited close bracket: EF 20%. She seemingly reduced LV function. Previous labs: Creatinine 1.22 on May 2022 Assessment and plan: -Acute non-Q-wave CA. Known CAD. Aspirin, IV heparin, beta darian -November 08: 1 stent to the OM, 1 stent to circumflex, 2 stents to the LAD by Dr. Osborne. -Cardiogenic shock: Not improving IV levo fed. - known 3-vessel CAD with chronically occluded RCA, with stents -Severe epistaxis. Possibly precipitated by IV heparin and nasal cannula.: Controlled Seen by Dr. Jayson Resendiz. Nasal packing. -Acute on chronic congestive diastolic heart failure of systolic dysfunction, EF 20 %, ischemic cardiomyopathy: Stable for now. Impella placed-November 05-stopped November 08. Coreg. And Entresto and Zaroxolyn held -Diabetes mellitus type 2, chronically on insulin: Uncontrolled with hyperglycemia Levemir 36 mg subcu every 12. NovoLog 6 units 3 times a day follow Accu-Cheks with sliding scale -Essential hypertension-blood pressure currently low. Meds held -Acute kidney injury, ATN likely cardiorenal: Worsening Creatinine was 1.2 in May 2022 Creatinine today 3.92 -Chronic kidney disease multifactorial, stage III -Morbid obesity BMI 56.2 Weight loss measures. Follow with PCP. -Full code Continue to off diuretics and the blood pressure medications. Creatinine worsening. Gentle hydration. Nephrology consulted.
[2022-11-10 16:55] LABS: Glucose,Whole Blood 325 mg/dL (70-110)
[2022-11-10] MEDS: MAG HYDROX/AL HYDROX/SIMETH 30 ML CUP PO PRN ×2 (16:57→21:15)
[2022-11-10] MEDS ORDERED: NITROGLYCERIN OINT 1 INCH/GM PACKET TOPICAL STA (17:20)
[2022-11-10] MEDS ORDERED: MORPHINE SULFATE 2 MG/ML SYRINGE IVP PRN (17:48)
[2022-11-10 20:33] LABS: Glucose,Whole Blood 329 mg/dL (70-110)
[2022-11-11] MEDS: NOREPINEPHRINE 4 MG in SODIUM CHLORIDE 0.9% 250 ML IV SCH ×2 (02:49→10:27)
--- NOTE | 2022-11-11 03:07 | PN ---
PROGRESS NOTE DATE OF SERVICE: 11/10/2022 SUBJECTIVE: Vital signs stable. The patient has not had any further nasal bleeding since her surgery. The nursing staff is currently still continuing to use the Afrin nasal spray 3 times daily. OBJECTIVE: HEENT: The patient is normocephalic. Tympanic membranes normal. Intranasal examination reveals no evidence of any active bleeding from either the right or left naris. Examination of oropharynx reveals no bleeding down the posterior pharyngeal wall. The remainder of the head and neck exam and physical exam is unchanged since last visit. ASSESSMENT: Left posterior epistaxis. PLAN: I would like to continue with the Afrin nasal spray 2 puffs each nostril 3 times daily through 11/10/2022. As of 11/11/2022, the Afrin nasal spray will be discontinued. At this point, I will sign off this patient and will no longer see her. If I can be of any further assistance, please feel free to call my office. Thank you for allowing me to assist in the continuing care of your patient. MMODL / IJN: [id number] / MTDKurtis
[2022-11-11 06:45] LABS: Glucose,Whole Blood 115 mg/dL (70-110)
[2022-11-11] MEDS: INSULIN ASPART (NovoLOG) 100 UNIT/ML VIAL SQ SCH ×7 (06:53→20:23)
[2022-11-11] MEDS: ASCORBIC ACID 500 MG TAB PO SCH (08:26)
[2022-11-11] MEDS: INSULIN DETEMIR (LEVEMIR) 100 UNIT/ML SYR SQ SCH ×2 (08:26→20:22)
[2022-11-11] MEDS: CHOLECALCIFEROL 25 MCG (1000 IU) TABLET PO SCH (08:27)
[2022-11-11] MEDS: ATORVASTATIN 80 MG TAB PO SCH (08:27)
[2022-11-11] MEDS: ASPIRIN 81 MG PO SCH (08:27)
[2022-11-11] MEDS: CLOPIDOGREL 75 MG TAB PO SCH (08:27)
[2022-11-11] MEDS: NYSTATIN 100,000 UNIT/GM POWD 15 GM TOPICAL SCH ×2 (08:28→20:23)
[2022-11-11] MEDS: PANTOPRAZOLE 40 MG/10 ML VIAL IVP SCH (08:28)
[2022-11-11 09:14] LABS: HCT 23.7 % (34.0-46.0); MCH 31.9 pg (25.0-35.0); MCHC 33.6 g/dL (31.0-37.0); MCV 94.9 fL (80.0-100.0); Mean Platelet Volume 12.3; Platelet Count 132 k/uL (150-450); RBC 2.49 m/uL (3.80-5.40); RDW 15.4 % (11.5-15.5); WBC 15.2 k/uL (3.8-10.6)
[2022-11-11 09:15] LABS: African American GFR (CKD) 10 (>60 ml/min/1.73 sqM); Anion Gap 12 mmol/L; Blood Urea Nitrogen 83 mg/dL (7-17); Carbon Dioxide 23 mmol/L (22-30); Chloride 94 mmol/L (98-107); Glucose 124 mg/dL (74-99); Non-African American GFR(CKD) 8 (>60 ml/min/1.73 sqM); Potassium 4.5 mmol/L (3.5-5.1); Sodium 129 mmol/L (137-145)
[2022-11-11] MEDS: METOPROLOL TARTRATE 12.5 MG TAB PO SCH ×2 (10:26→20:23)
[2022-11-11 11:51] LABS: Glucose,Whole Blood 132 mg/dL (70-110)
--- NOTE | 2022-11-11 12:03 | P.PN ---
Subjective Progress Note Date: 11/11/22 I am seeing this patient in new consultation today 11/06/2022 in the intensive care unit after the patient presented with non-ST elevation AL and cardiogenic shock requiring Impella insertion. Patient is a 77-year-old white female with past medical history significant for multivessel coronary artery disease with multiple previous coronary stents. Most recent coronary stenting done in May, to the first obtuse marginal branch of the circumflex and main circumflex coronary artery. Patient also has significant history of hypertension, hyperlipidemia, diabetes mellitus type 2, obesity, and chronic kidney disease. Her primary care provider is a nurse practitioner, Mickie Saenz, out of Dr. Miller office in [place]. Patient presented back on October with complaints of intermittent shortness of breath and chest pressure that started on the preceding Sunday or Sunday. This was accompanied with increased lower extremity swelling. She does have chronic lymphedema. Troponins had been trending up at 0.98, 1.59, and 2.2. ECG on arrival showed sinus tachycardia with possible septal-lateral myocardial infarction of indeterminate age, and right axis deviation. She was diagnosed with a non-ST elevation AL. She was originally admitted to the cardiac stepdown unit. Echocardiogram demonstrated a reduced ejection fraction of 20-25%, moderate mitral regurgitation, and moderate tricuspid regurgitation. She was taken for cardiac catheterization yesterday, which demonstrated the patient's multivessel coronary artery disease including 80-90% stenosis involving the mid LAD, 50% stenosis of the distal left main, 90% stenosis of the circumflex, and 90% restenosis of the previously stented obtuse marginal branch, there was chronic RCA stenosis with collaterals. Patient developed shock like symptoms, had elevated left ventricular end-diastolic pressure of 35-40 mmHg, and a Impella assist device was inserted. She was subsequently transferred to the intensive care unit. At this point, we were consulted yesterday afternoon. Patient is currently lying supine in bed, on 2 L/m nasal cannula, in no acute distress. Most recent chest x-ray from October was consistent with congestive heart failure with cardiomegaly, pulmonary vascular congestion, and bilateral pleural effusions. She is being diuresed with Lasix 40 mg every 8 hours. The Impella is inserted through the right groin. Flow is at P9. There is a pulmonary artery catheter with cardiac output/cardiac index reading 5.5/2.4 respectively. Pulmonary artery pressures are 44/18. Blood pressure is hypotensive at 75/52 mmHg. Heart rhythm appears normal sinus around 70 bpm on bedside monitor. Cardiology has just started the patient on norepinephrine, which was initiated at 0.05 mcg/kg/m. Heparin is infusing per Impella protocol. PTT is therapeutic. Fibrinogen level 374 There was small amount of oozing from the Impella insertion site. No hematoma formation. Pulses were found bilaterally with Doppler. Most recent CBC from yesterday shows a WBC count 7.9, hemoglobin 11.4, hematocrit 33.3, platelets 142. BMP from yesterday shows sodium 133, potassium 3.5, chloride 101, serum bicarb 27, BUN 44, creatinine improved to 1.42, glucose 185. Potassium is being replaced per protocol. Currently, the plan is for evaluation by cardiothoracic services for possible surgical revascularization. Impella is going to remain in place for now. Her prognosis is currently guarded related to above-mentioned c omorbidities. She will be monitored in the intensive care unit. The patient is seen today 11/07/2022 in follow-up in the intensive care unit. She is currently resting in bed. Awake and alert in no acute distress. She is having issues with ongoing epistaxis. She's currently on room air. She does remain on a heparin drip. Normal saline at 30 MLS per hour. ImPella remains in place to the right groin. Pulmonary artery catheter and right groin. Cardiac output 5.7. Cardiac index 2.5. PA pressure 51/41. CVP 12. Mean arterial blood pressure 74. Chest x-ray reveals cardiomegaly with diffuse interstitial prominence suspect CHF. Left lower lobe consolidation and small bilateral effusions. White count 12.1. Hemoglobin 11.6. Platelets 105. Sodium 1:30. Potassium 3.9. Bicarb 35. BUN 39. Creatinine 1.38. Glucose 182. AST 53. ALT 21. The plan is return to the [facility] tomorrow. Remains on Lasix 80 mg IV every 8 hours. Currently in a -5.7 L balance. The patient is seen today 11/08/2022 in follow-up in the intensive care unit. She is awake and alert in no acute distress. Continue O2 saturations in the 90s on a Ventimask at 35% FiO2. No further epistaxis. Receiving Afrin nasal spray. She remains on heparin drip. She has normal saline at KVO. The Impala remains in place. Currently set at P-8. Cardiac output 3.6. Plan is to return to the CVL today. White count 13.6. Hemoglobin 12.6. Platelets 108. Sodium 132. Potassium 3.3. Bicarb 40. BUN 46. Creatinine 1.47. Glucose 126. LDH 1334. Albumin 3.0. She remains on IV Lasix and Zaroxolyn. Currently in a -1.2 L balance. Chest x-ray continues show cardiomegaly with diffuse interstitial prominence. Stable compared to previous The patient is seen today 11/09/2022 in follow-up in the intensive care unit. She is sitting up in bed. Awake and alert in no acute distress. She is maintaining good O2 saturations in the 90s on room air. Chest x-ray shows mild cardiomegaly. Improved appearance of the pulmonary vascular. No acute process seen. Her Impella was removed yesterday. Heparin drip is off. She is requiring norepinephrine at 0.07 mcg/kg/m. She has normal saline at 50 ML's per hour. She did undergo stenting 4 yesterday and remains on Plavix and aspirin. White count 19.8. Hemoglobin 9.7. Platelets 128. Sodium 126. Potassium 4.2. Bicarb 31. BUN 55. Creatinine 2.55. Glucose 290. LDH 833. The patient is seen today 11/10/2022 in follow-up in the intensive care unit. She is awake and alert in no acute distress. Maintaining good O2 saturations in the 90s on room air. She is still requiring norepinephrine at 0.03 mcg/kg/m. Normal saline at 50 ML's per hour. Sodium 129. Potassium 4.3. Bicarb 28. BUN 67. Creatinine 3.92. LDH 620. Glucose 124. Nephrology has been consulted. She remains on Plavix and aspirin. The patient is seen today 11/11/2022 in follow-up in the intensive care unit. She is awake and alert in no acute distress. Maintaining good O2 saturations in the 90s on room air. She remains on normal saline at 50 MLS per hour. She is still requiring a small dose of norepinephrine at 0.05 mcg/kg/m to keep the mean arterial pressure greater than 60. White count 15.2. Hemoglobin 8.0. Platelets 132. Sodium 129. Potassium 4.5. Bicarb 23. BUN 83. Creatinine 4.73. Glucose 124. TSH 2.060. Cortisol level XLIV. Urinalysis with positive nitrates, large leukocytes, high WBCs. Objective - Vital Signs Vital signs: Vital Signs Temp 97.8 F 11/11/22 08:00 Pulse 79 11/11/22 11:30 Resp 23 11/11/22 11:30 BP 94/44 11/11/22 11:30 Pulse Ox 95 11/11/22 11:30 FiO2 35 11/09/22 04:00 Intake & Output 11/10/22 11/11/22 11/11/22 18:59 06:59 18:59 Intake Total 891.039 908.368 339.113 Output Total 250 225 120 Balance 641.039 683.368 219.113 Weight 126 kg 131.8 kg Intake: IV 600 650 200 Sodium Chloride 0.9% 1, 600 650 200 000 ml @ 50 mls/hr IV . Q20H ROHIT Rx#:[id number] Intake, IV Titration 291.039 258.368 139.113 Amount Norepinephrine 4 mg In 291.039 258.368 139.113 Sodium Chloride 0.9% 250 ml @ 0.03 MCG/KG/MIN 15. 476 mls/hr IV .[id number] ROHIT Rx#:[id number] Output: Urine 250 225 120 Other: Voiding Method Indwelling Catheter Indwelling Catheter # Voids 0 # Bowel Movements 1 ABP, PAP, CO, CI - Last Documented Arterial Blood Pressure 124/45 Pulmonary Artery Pressure 61/55 Cardiac Output 5.7 Cardiac Index 2.5 - Exam GENERAL EXAM: Alert, oriented 77-year-old female, on room air, comfortable in no apparent distress. HEAD: Normocephalic and atraumatic EYES: Normal reaction of pupils, equal size. NOSE: Clear with pink turbinates. THROAT: No erythema or exudates. NECK: No masses. Positive mild JVD CHEST: No chest wall deformity. LUNGS: Equal air entry with bibasilar inspiratory crackles. CVS: S1 and S2 normal with no audible murmur, regular rhythm. No extra heart sounds ABDOMEN: Obese abdomen, no hepatosplenomegaly, active bowel sounds, no guarding or rigidity. SPINE: No scoliosis or deformity SKIN: No rashes, bilateral lower extremity chronic venous changes. CENTRAL NERVOUS SYSTEM: No focal deficits, tone is normal in all 4 extremities. EXTREMITIES: There is bilateral lower extremity 1-2+ pitting edema. Movement and sensation intact. - Labs CBC & Chem 7: 11/11/22 07:49 11/11/22 07:49 Labs: Abnormal Lab Results - Last 24 Hours (Table) 11/10/22 11/10/22 11/10/22 Range/Units 12:00 12:05 16:54 WBC (3.8-10.6) k/uL RBC (3.80-5.40) m/uL Hgb (11.4-16.0) gm/dL Hct (34.0-46.0) % Plt Count (150-450) k/uL Sodium (137-145) mmol/L Chloride (98-107) mmol/L BUN (7-17) mg/dL Creatinine (0.52-1.04) mg/dL Glucose (74-99) mg/dL POC Glucose (mg/dL) 194 H 325 H (70-110) mg/dL Calcium (8.4-10.2) mg/dL Urine Appearance Cloudy H (Clear) Urine Protein Trace H (Negative) Urine Blood Trace H (Negative) Urine Nitrite Positive H (Negative) Ur Leukocyte Esterase Large H (Negative) Urine RBC 10 H (0-5) /hpf Urine WBC 27 H (0-5) /hpf Amorphous Sediment Rare H (None) /hpf Hyaline Casts 6 H (0-2) /lpf Urine Mucus Few H (None) /hpf 11/10/22 11/11/22 11/11/22 Range/Units 20:32 06:43 07:49 WBC 15.2 H (3.8-10.6) k/uL RBC 2.49 L (3.80-5.40) m/uL Hgb 8.0 L D (11.4-16.0) gm/dL Hct 23.7 L (34.0-46.0) % Plt Count 132 L (150-450) k/uL Sodium (137-145) mmol/L Chloride (98-107) mmol/L BUN (7-17) mg/dL Creatinine (0.52-1.04) mg/dL Glucose (74-99) mg/dL POC Glucose (mg/dL) 329 H 115 H (70-110) mg/dL Calcium (8.4-10.2) mg/dL Urine Appearance (Clear) Urine Protein (Negative) Urine Blood (Negative) Urine Nitrite (Negative) Ur Leukocyte Esterase (Negative) Urine RBC (0-5) /hpf Urine WBC (0-5) /hpf Amorphous Sediment (None) /hpf Hyaline Casts (0-2) /lpf Urine Mucus (None) /hpf 11/11/22 11/11/22 Range/Units 07:49 11:48 WBC (3.8-10.6) k/uL RBC (3.80-5.40) m/uL Hgb (11.4-16.0) gm/dL Hct (34.0-46.0) % Plt Count (150-450) k/uL Sodium 129 L (137-145) mmol/L Chloride 94 L (98-107) mmol/L BUN 83 H (7-17) mg/dL Creatinine 4.73 H (0.52-1.04) mg/dL Glucose 124 H (74-99) mg/dL POC Glucose (mg/dL) 132 H (70-110) mg/dL Calcium 8.0 L (8.4-10.2) mg/dL Urine Appearance (Clear) Urine Protein (Negative) Urine Blood (Negative) Urine Nitrite (Negative) Ur Leukocyte Esterase (Negative) Urine RBC (0-5) /hpf Urine WBC (0-5) /hpf Amorphous Sediment (None) /hpf Hyaline Casts (0-2) /lpf Urine Mucus (None) /hpf Assessment and Plan Assessment: Non-ST elevation myocardial infarction, status post heart catheterization on 11/05 demonstrating multivessel coronary artery disease. Status post stenting 4 on 11/08/2022 Cardiogenic shock, status post insertion of a Impella catheter on 11/05 and removed on 11/08/2022. Also, required low-dose norepinephrine. Acute hypoxemic respiratory failure, improved, currently on 35% FiO2 via Ventimask, secondary to exacerbation of systolic congestive heart failure. Most recent chest x-ray from today 11/08/2022 is consistent with congestive heart failure with cardiomegaly, pulmonary vascular congestion, and bilateral pleural effusions. Echocardiogram demonstrated a reduced ejection fraction of 20-25%, moderate mitral regurgitation, and moderate tricuspid regurgitation. Epistaxis secondary to blood thinners improved and on Afrin nasal spray Acute on chronic kidney disease, worsening following contrast History of coronary artery disease with multiple previous PCI and coronary stenting with previous in-stent restenosis History of hypertension Hyperlipidemia Diabetes mellitus type 2 Chronic kidney disease stage III Morbid obesity, with a BMI of 54.6 kg/m Lifelong nonsmoker Plan: The patient was seen and evaluated Renal ultrasound, labs and medications reviewed Currently on room air Remains on Plavix and aspirin Titrate down the norepinephrine as tolerated Add midodrine 10 mg 3 times a day Check serum cortisol level, TSH Nephrology consult Condition remains guarded We'll continue to follow I have personally seen and examined the patient, performed the documentation and the assessment and plan as written. Number of minutes spent on the visit: 10.
--- NOTE | 2022-11-11 12:24 | P.PN ---
Subjective Progress Note Date: 11/11/22 This is Samm Guillen NP, I'm dictating on behalf of Dr. Adams's H&P and A&P. Patient was interviewed and examined. Patient is a pleasant 77 showed female with multiple comorbid conditions who presented to the hospital with shortness of breath, edema, and intrascapular pain. She was found to have a non-ST elevated myocardial infarction and exacerbation of chronic systolic heart failure. Patient underwent coronary angiogram which showed severe triple-vessel disease with chronically occluded RCA, 50% left main disease, 80-90% mid LAD stenosis, and 90% ostial left circumflex stenosis, with 90% in-stent restenosis of stent in the OM1 patient underwent Impella placement for cardiogenic shock, and later underwent stenting of the left main, PCI of the LAD and OM1. After the procedure patient developed hypotension and acute kidney injury. Today the patient reports that she's tired, otherwise states that she's feeling okay. We recommended that the Levophed be weaned as soon as possible, however this appears to be not happening. Due to patient's obesity, it's likely that her blood pressures are not accurate. Patient's creatinine has slowly been creeping up, however nursing reports that she is making more urine today. We will likely see the creatinine start to trend down. She otherwise denies chest pain, shortness of breath, and heart palpitations. GENERAL: Well-appearing, well-nourished and in no acute distress. NECK: Supple without JVD or thyromegaly. LUNGS: Breath sounds clear to auscultation bilaterally. Respiration equal and unlabored. No wheezes, rales or rhonchi. HEART: Regular rate and rhythm without murmurs, rubs or gallops. S1 and S2 heard. EXTREMITIES: Normal range of motion, no edema. No clubbing or cyanosis. Peripheral pulses intact and strong. VITALS: Temp 97.8, pulse 89, respirations 25, blood pressure 95/35, O2 saturation 95% TELEMETRY: Normal sinus rhythm LABS: White count 15.2, hemoglobin 8.0, sodium 129, potassium 4.5, BUN 83, creatinine 4.73, calcium 8.0, TSH 2.060, cortisol 44 IMPRESSION: 1. Non-ST elevated myocardial infarction 2. Severe coronary artery disease with prior stenting and in-stent restenosis 3. Cardiogenic shock requiring high-dose pressors and Impella placement 4. Valvular heart disease 5. Diabetes mellitus 6. Morbid obesity 7. Acute kidney injury, secondary to contrast load 8. Hyponatremia, secondary to ADE PLAN: Continue to wean patient from Levophed drip. Discontinue midodrine. Patient is making more urine, we are expecting her creatinine to decrease over the next few days. Continue current cardiac regimen. Further recommendations based on patient's clinical course. Objective - Vital Signs Vital signs: Vital Signs Temp 97.8 F 11/11/22 08:00 Pulse 95 11/11/22 12:00 Resp 7 L 11/11/22 12:00 BP 99/35 11/11/22 12:00 Pulse Ox 83 L 11/11/22 12:00 FiO2 35 11/09/22 04:00 Intake & Output 11/10/22 11/11/22 11/11/22 18:59 06:59 18:59 Intake Total 891.039 908.368 389.113 Output Total 250 225 155 Balance 641.039 683.368 234.113 Weight 126 kg 131.8 kg Intake: IV 600 650 250 Sodium Chloride 0.9% 1, 600 650 250 000 ml @ 50 mls/hr IV . Q20H [facility] Rx#:[id number] Intake, IV Titration 291.039 258.368 139.113 Amount Norepinephrine 4 mg In 291.039 258.368 139.113 Sodium Chloride 0.9% 250 ml @ 0.03 MCG/KG/MIN 15. 476 mls/hr IV .[id number] [facility] Rx#:[id number] Output: Urine 250 225 155 Other: Voiding Method Indwelling Catheter Indwelling Catheter Indwelling Catheter # Voids 0 # Bowel Movements 1 ABP, PAP, CO, CI - Last Documented Arterial Blood Pressure 124/45 Pulmonary Artery Pressure 61/55 Cardiac Output 5.7 Cardiac Index 2.5 - Labs CBC & Chem 7: 11/11/22 07:49 11/11/22 07:49 Labs: Abnormal Lab Results - Last 24 Hours (Table) 11/10/22 11/10/22 11/10/22 Range/Units 12:00 16:54 20:32 WBC (3.8-10.6) k/uL RBC (3.80-5.40) m/uL Hgb (11.4-16.0) gm/dL Hct (34.0-46.0) % Plt Count (150-450) k/uL Sodium (137-145) mmol/L Chloride (98-107) mmol/L BUN (7-17) mg/dL Creatinine (0.52-1.04) mg/dL Glucose (74-99) mg/dL POC Glucose (mg/dL) 325 H 329 H (70-110) mg/dL Calcium (8.4-10.2) mg/dL Urine Appearance Cloudy H (Clear) Urine Protein Trace H (Negative) Urine Blood Trace H (Negative) Urine Nitrite Positive H (Negative) Ur Leukocyte Esterase Large H (Negative) Urine RBC 10 H (0-5) /hpf Urine WBC 27 H (0-5) /hpf Amorphous Sediment Rare H (None) /hpf Hyaline Casts 6 H (0-2) /lpf Urine Mucus Few H (None) /hpf 11/11/22 11/11/22 11/11/22 Range/Units 06:43 07:49 07:49 WBC 15.2 H (3.8-10.6) k/uL RBC 2.49 L (3.80-5.40) m/uL Hgb 8.0 L D (11.4-16.0) gm/dL Hct 23.7 L (34.0-46.0) % Plt Count 132 L (150-450) k/uL Sodium 129 L (137-145) mmol/L Chloride 94 L (98-107) mmol/L BUN 83 H (7-17) mg/dL Creatinine 4.73 H (0.52-1.04) mg/dL Glucose 124 H (74-99) mg/dL POC Glucose (mg/dL) 115 H (70-110) mg/dL Calcium 8.0 L (8.4-10.2) mg/dL Urine Appearance (Clear) Urine Protein (Negative) Urine Blood (Negative) Urine Nitrite (Negative) Ur Leukocyte Esterase (Negative) Urine RBC (0-5) /hpf Urine WBC (0-5) /hpf Amorphous Sediment (None) /hpf Hyaline Casts (0-2) /lpf Urine Mucus (None) /hpf 11/11/22 Range/Units 11:48 WBC (3.8-10.6) k/uL RBC (3.80-5.40) m/uL Hgb (11.4-16.0) gm/dL Hct (34.0-46.0) % Plt Count (150-450) k/uL Sodium (137-145) mmol/L Chloride (98-107) mmol/L BUN (7-17) mg/dL Creatinine (0.52-1.04) mg/dL Glucose (74-99) mg/dL POC Glucose (mg/dL) 132 H (70-110) mg/dL Calcium (8.4-10.2) mg/dL Urine Appearance (Clear) Urine Protein (Negative) Urine Blood (Negative) Urine Nitrite (Negative) Ur Leukocyte Esterase (Negative) Urine RBC (0-5) /hpf Urine WBC (0-5) /hpf Amorphous Sediment (None) /hpf Hyaline Casts (0-2) /lpf Urine Mucus (None) /hpf
[2022-11-11] MEDS ORDERED: MIDODRINE 5 MG TAB PO SCH (12:30)
--- NOTE | 2022-11-11 15:30 | P.PN ---
Subjective Progress Note Date: 11/11/22 Follow-up for acute kidney injury. Still on levo fed. Urine output of 475 ML since morning. Objective - Vital Signs Vital signs: Vital Signs Temp 97.8 F 11/11/22 08:00 Pulse 78 11/11/22 14:30 Resp 11 L 11/11/22 14:30 BP 107/72 11/11/22 14:30 Pulse Ox 96 11/11/22 14:30 FiO2 35 11/09/22 04:00 Intake & Output 11/10/22 11/11/22 11/11/22 18:59 06:59 18:59 Intake Total 891.039 908.368 560.304 Output Total 250 225 225 Balance 641.039 683.368 335.304 Weight 126 kg 131.8 kg Intake: IV 600 650 350 Sodium Chloride 0.9% 1, 600 650 350 000 ml @ 50 mls/hr IV . Q20H [facility] Rx#:[id number] Intake, IV Titration 291.039 258.368 210.304 Amount Norepinephrine 4 mg In 291.039 258.368 210.304 Sodium Chloride 0.9% 250 ml @ 0.03 MCG/KG/MIN 15. 476 mls/hr IV .[id number] [facility] Rx#:[id number] Output: Urine 250 225 225 Other: Voiding Method Indwelling Catheter Indwelling Catheter Indwelling Catheter # Voids 0 # Bowel Movements 1 ABP, PAP, CO, CI - Last Documented Arterial Blood Pressure 124/45 Pulmonary Artery Pressure 61/55 Cardiac Output 5.7 Cardiac Index 2.5 - Exam No acute distress S1-S2 heard Decreased breath sounds Abdomen soft Edema - Labs CBC & Chem 7: 11/11/22 07:49 11/11/22 07:49 Labs: Abnormal Lab Results - Last 24 Hours (Table) 11/10/22 11/10/22 11/11/22 Range/Units 16:54 20:32 06:43 WBC (3.8-10.6) k/uL RBC (3.80-5.40) m/uL Hgb (11.4-16.0) gm/dL Hct (34.0-46.0) % Plt Count (150-450) k/uL Sodium (137-145) mmol/L Chloride (98-107) mmol/L BUN (7-17) mg/dL Creatinine (0.52-1.04) mg/dL Glucose (74-99) mg/dL POC Glucose (mg/dL) 325 H 329 H 115 H (70-110) mg/dL Calcium (8.4-10.2) mg/dL 11/11/22 11/11/22 11/11/22 Range/Units 07:49 07:49 11:48 WBC 15.2 H (3.8-10.6) k/uL RBC 2.49 L (3.80-5.40) m/uL Hgb 8.0 L D (11.4-16.0) gm/dL Hct 23.7 L (34.0-46.0) % Plt Count 132 L (150-450) k/uL Sodium 129 L (137-145) mmol/L Chloride 94 L (98-107) mmol/L BUN 83 H (7-17) mg/dL Creatinine 4.73 H (0.52-1.04) mg/dL Glucose 124 H (74-99) mg/dL POC Glucose (mg/dL) 132 H (70-110) mg/dL Calcium 8.0 L (8.4-10.2) mg/dL Assessment and Plan Assessment: #1 oliguric acute kidney injury multifactorial ATN -Hemodynamics with low blood pressures -Contrast associated nephropathy -Baseline creatinine 1.2 MG per DL -Urine analysis hematuria, pyuria. -Renal ultrasound no hydronephrosis #2 hyponatremia, euvolemic. #3 non-ST elevation [place] status post cardiac cath #4 chronic kidney disease stage III suspected to nephrosclerosis #5 shock on levo fed Plan: #1 hemodynamics better. #2 renal function high, urine output improving. Anticipate renal function to plateau and start improving. #3 avoid nephrotoxic agents and hypotensive episodes. 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
--- NOTE | 2022-11-11 17:29 | P.PN ---
Progress Note - Text Progress Note Date: 11/11/22 Hospital course. follows with Dr. Miller. Astronautical Engineer Dr. Krause. .77 years old female with past medical history of History of coronary artery disease status post stenting, diabetes mellitus, hypertension, hyperlipidemia Patient presents because of worsening dyspnea over one week with possible elements of orthopnea. Also patient reports worsening of leg swelling. Occasional coughing. Occasional chest pain when lying down, last episode was 2 days ago currently patient denies any chest pain or discomfort and epigastric pain or neck pain. She does not look in respiratory distress when she talks easily and she does not use accessory respiratory muscles. She denies any urinary GI or neurological specific symptoms to me. She denies smoking alcohol or illicit drugs. Her PCP is Dr. Miller and her installation & maintenance executive is Dr. Krause Patient is mildly tachycardic and tachypneic labs reviewed, CBC, INR within the reference range. Creatinine is elevated 1.4, and 1.3 which is at or close to baseline of 1.2-1.4. mildly elevated lactic acid came back to normal. Troponin 1.5, 2.2 Chest x-ray: Cardiomegaly with pulmonary vascular congestion and bilateral pleural effusion. Possible congestive heart failure Echocardiogram from : Ejection fraction of 35-40% with dilated left ventricle with severe LV dysfunction and 2+ mitral regurgitation 11/04: Patient seen and evaluated bedside, home medications reviewed. Started on high-dose correctional insulin as well as Lantus. Aldactone discontinued. Continue patient on IV Lasix, continue IV heparin planned for cardiac catheterization 11/05: Patient seen and evaluated bedside. Patient is status post cardiac catheterization transferred to medical ICU. Status post impela placement, patient transferred to medical ICU. Cardiology and MICU team consulted and notified about new consult. Patient evaluated alert and oriented times 3.Care plan discussed with family denies of chest pain November 06: I assumed care of the patient today. ICU. Laying in bed. No chest pain. Currently on Impella. 2 L dose cannula. Patient this afternoon is nothing by mouth. High risk for surgery, pending decision as per cardiology. For further intervention. This admission was found over in-stent stenosis of OM1. November 07: ICU. Had a severe episode of epistaxis this morning. ENT was consulted. Nasal packing. We will use nasal cannula through the polyps to keep the oxygen up. Currently plan for patient to go back to the cardiac rn cardiac cath t omorrow. Eating. Impella P-8. IV heparin November 08: ICU. Today patient changing of the cardiac rn cardiac cath by Dr. Osborne. Patient did get us stent to the obtuse marginal, circumflex. 2 stents to the LAD. Postprocedure brought back to the ICU. Started on before. 0.11 g. Sinus rhythm. Laying in bed awake tired. Is on Ventimask. No further epistaxis. Since yesterday. Patient be started on IV heparin after the sheath is pulled out. November 09: ICU. Laying in bed. Feeling very tired. On levo fed. Entresto diuretics have been held. Gentle IV fluids per cardiology. Nitrates held. November 10: ICU. In bed. Continues to feel very tired. Remains on levo fed. Lopressor held this morning because of low blood pressure. On IV fluids 50 mL an hour. Eating some. Discussed. Worsening kidney function. November 11: ICU. Sitting up in a chair. Feeling tired. Decreased appetite. Remains on levo fed. Worsening renal function. 4.73. Being followed by nephrology. Patient hemoglobin is down to 8 from admission hemoglobin of 14. Patient very tired. Hypotensive cardiogenic shock. We will transfuse a unit to improve renal perfusion and blood pressure. Active Medications Acetaminophen (Acetaminophen Tab 325 Mg Tab) 650 mg PO Q4HR PRN PRN Reason: Pain Last Admin: 11/09/22 19:06 Dose: 650 mg Al Hydroxide/Mg Hydroxide (Mag Hydrox/Al Hydrox/Simeth 30 Ml Cup) 30 ml PO Q4HR PRN PRN Reason: Heartburn Last Admin: 11/10/22 21:15 Dose: 30 ml Alprazolam (Alprazolam 0.25 Mg Tab) 0.25 mg PO Q6HR PRN PRN Reason: Mild Anxiety Last Admin: 11/10/22 11:38 Dose: 0.25 mg Alprazolam (Alprazolam 0.5 Mg Tab) 0.5 mg PO Q6HR PRN PRN Reason: Moderate Anxiety Ascorbic Acid (Ascorbic Acid 500 Mg Tab) 1,000 mg PO DAILY [facility] Last Admin: 11/11/22 08:26 Dose: 1,000 mg Aspirin (Aspirin 81 Mg) 162 mg PO DAILY [facility] Last Admin: 11/11/22 08:27 Dose: 162 mg Atorvastatin Calcium (Atorvastatin 80 Mg Tab) 80 mg PO DAILY [facility] Last Admin: 11/11/22 08:27 Dose: 80 mg Atropine Sulfate (Atropine Sulfate 0.1 Mg/Ml 10ml Syringe) 0.5 mg IV ONCE PRN PRN Reason: Symptomatic Bradycardia Cholecalciferol (Cholecalciferol 25 Mcg (1000 Iu) Tablet) 25 mcg PO DAILY [facility] Last Admin: 11/11/22 08:27 Dose: 25 mcg Clopidogrel Bisulfate (Clopidogrel 75 Mg Tab) 75 mg PO DAILY [facility] Last Admin: 11/11/22 08:27 Dose: 75 mg Dextrose/Water (Dextrose 50% Syringe 50 Ml) 25 ml IVP PER PROTOCOL PRN; Protocol PRN Reason: Hypoglycemia Dextrose/Water (Dextrose 50% Syringe 50 Ml) 50 ml IVP PER PROTOCOL PRN; Protocol PRN Reason: Hypoglycemia Norepinephrine Bitartrate 4 mg (/ Sodium Chloride) 254 mls @ 15.476 mls/hr IV .[id number] [facility]; Protocol Last Titration: 11/11/22 16:01 Dose: 0.02 mcg/kg/min, 10.317 mls/hr Sodium Chloride (Saline 0.9%) 1,000 mls @ 50 mls/hr IV .Q20H [facility] Last Admin: 11/10/22 23:11 Dose: 50 mls/hr Insulin Aspart (Insulin Aspart (Novolog) 100 Unit/Ml Vial) 0 unit SQ ACHS [facility]; Protocol Last Admin: 11/11/22 12:06 Dose: Not Given Insulin Aspart (Insulin Aspart (Novolog) 100 Unit/Ml Vial) 6 unit SQ AC-TID [facility] Last Admin: 11/11/22 12:07 Dose: Not Given Insulin Detemir (Insulin Detemir (Levemir) 100 Unit/Ml Syr) 36 unit SQ Q12H [facility] Last Admin: 11/11/22 08:26 Dose: 36 unit Metoprolol Tartrate (Metoprolol Tartrate 12.5 Mg Tab) 12.5 mg PO BID [facility] Last Admin: 11/11/22 10:26 Dose: Not Given Miscellaneous Information (Potassium Replacement Protocol 1 Each Misc) 1 each MISCELLANE DAILY PRN; Protocol PRN Reason: Per Protocol Morphine Sulfate (Morphine Sulfate 4 Mg/Ml Syringe) 4 mg IV Q5M PRN PRN Reason: Chest Pain Morphine Sulfate (Morphine Sulfate 2 Mg/Ml Syringe) 2 mg IVP Q6HR PRN PRN Reason: Pain/Discomfort Last Admin: 11/10/22 17:58 Dose: 2 mg Nitroglycerin (Nitroglycerin Sl Tabs 0.4 Mg Tab) 0.4 mg SUBLINGUAL Q5M PRN PRN Reason: Chest Pain Last Admin: 11/10/22 11:38 Dose: 0.4 mg Nystatin (Nystatin 100,000 Unit/Gm Powd 15 Gm) 1 applic TOPICAL BID [facility]; Protocol Last Admin: 11/11/22 08:28 Dose: 1 applic Ondansetron HCl (Ondansetron 4 Mg/2 Ml Vial) 4 mg IVP Q8HR PRN PRN Reason: Nausea And Vomiting Last Admin: 11/08/22 08:45 Dose: 4 mg Pantoprazole Sodium (Pantoprazole 40 Mg/10 Ml Vial) 40 mg IVP DAILY [facility] Last Admin: 11/11/22 08:28 Dose: 40 mg Senna (Sennosides 8.6 Mg Tab) 8.6 mg PO DAILY PRN PRN Reason: Constipation Last Admin: 11/09/22 14:00 Dose: 8.6 mg Zolpidem Tartrate (Zolpidem 5 Mg Tab) 5 mg PO HS PRN PRN Reason: Insomnia Past medical history to include: Diabetes, hypertension, hyperlipidemia, MA in 2010, CAD with stent in 2019 Social history: . No smoking or alcohol Physical examination: VITAL SIGNS: 98, 83, 24, 93/44, 96% GENERAL: , Up in a chair, awake, tired. EYES: Pupils equal. Conjunctiva normal. HEENT: External appearance of nose and ears normal, oral cavity grossly normal. NECK: JVD not raised; masses not palpable. HEART: First and second heart sounds are normal; some edema. LUNGS: Respiratory rate normal; decreased breath sound. ABDOMEN: Soft, nontender, liver spleen not palpable, no masses palpable. PSYCH: Alert and oriented x3; mood and affect tired MUSCULOSKELETAL:No Clubbing/cyanosis;muscles-grossly intact. OA INVESTIGATIONS, reviewed in the clinical context: November 11: White count 15.2 hemoglobin 8 sodium 129 potassium 4.5 BUN 83 creatinine 4.73 November 10: Sodium 129 potassium 4.3 creatinine 3.9 to November 09 dose: White count 19.8 hemoglobin 9.7 platelets 128 sodium 126 potassium 4.2 BUN 55 creatinine 2.55 November 08: White count 13.6 hemoglobin 12.6 sodium 132 potassium 3.3 BUN 46 creatinine 1.47 November 07: White count 12.1 hemoglobin 11.6 platelets 105 November 06: White count 7.8 hemoglobin 11.8 platelets 131 sodium 135 potassium 4.2 BUN 44 creatinine 1.47 2-D echocardiogram [limited close bracket: EF 20%. She seemingly reduced LV function. Previous labs: Creatinine 1.22 on May 2022 Assessment and plan: -Acute non-Q-wave MA. Known CAD. Aspirin, IV heparin, beta darian -November 08: 1 stent to the OM, 1 stent to circumflex, 2 stents to the LAD by Dr. Osborne. -Cardiogenic shock: Not improving IV levo fed. - known 3-vessel CAD with chronically occluded RCA, with stents -Severe epistaxis. Possibly precipitated by IV heparin and nasal cannula.: Controlled Seen by Dr. Jayson Resendiz. Nasal packing. -Acute blood loss anemia hemoglobin that dropped from 14-8. Symptomatic. Transfuse 1 unit of blood. -Acute on chronic congestive diastolic heart failure of systolic dysfunction, EF 20 %, ischemic cardiomyopathy: Stable for now. Impella placed-November 05-stopped November 08. Coreg. And Entresto and Zaroxolyn held -Diabetes mellitus type 2, chronically on insulin: Uncontrolled with hyperglycemia Levemir 36 mg subcu every 12. NovoLog 6 units 3 times a day follow Accu-Cheks with sliding scale -Essential hypertension-blood pressure currently low. Meds held -Acute kidney injury, ATN likely cardiorenal: Worsening Creatinine was 1.2 in May 2022 Creatinine today 3.92 -Chronic kidney disease multifactorial, stage III -Morbid obesity BMI 56.2 Weight loss measures. Follow with PCP. -Full code Discussed with patient. Transfuse 1 unit of blood.
[2022-11-11 17:42] LABS: Glucose,Whole Blood 224 mg/dL (70-110)
[2022-11-11 20:11] LABS: Glucose,Whole Blood 145 mg/dL (70-110)
[2022-11-11] MEDS: SODIUM CHLORIDE 0.9% 1,000 ML IV SCH (22:35)
[2022-11-12 05:23] LABS: African American GFR (CKD) 11 (>60 ml/min/1.73 sqM); Anion Gap 9 mmol/L; Blood Urea Nitrogen 91 mg/dL (7-17); Calcium 8.3 mg/dL (8.4-10.2); Carbon Dioxide 25 mmol/L (22-30); Chloride 99 mmol/L (98-107); Glucose 62 mg/dL (74-99); Non-African American GFR(CKD) 10 (>60 ml/min/1.73 sqM); Sodium 133 mmol/L (137-145)
[2022-11-12 05:24] LABS: Potassium 5.2 mmol/L (3.5-5.1)
[2022-11-12 05:26] LABS: HCT 22.8 % (34.0-46.0); MCH 31.7 pg (25.0-35.0); MCHC 35.2 g/dL (31.0-37.0); Mean Platelet Volume 12.1; Platelet Count 118 k/uL (150-450); RBC 2.54 m/uL (3.80-5.40); RDW 15.6 % (11.5-15.5); WBC 12.7 k/uL (3.8-10.6)
[2022-11-12 06:57] LABS: Glucose,Whole Blood 73 mg/dL (70-110)
[2022-11-12] MEDS: INSULIN ASPART (NovoLOG) 100 UNIT/ML VIAL SQ SCH ×5 (07:00→20:30)
[2022-11-12] MEDS: SENNOSIDES 8.6 MG TAB PO PRN ×2 (08:08→20:29)
[2022-11-12] MEDS: CHOLECALCIFEROL 25 MCG (1000 IU) TABLET PO SCH (09:55)
[2022-11-12] MEDS: ASCORBIC ACID 500 MG TAB PO SCH (09:55)
[2022-11-12] MEDS: ASPIRIN 81 MG PO SCH (10:00)
[2022-11-12] MEDS: CLOPIDOGREL 75 MG TAB PO SCH (10:00)
[2022-11-12] MEDS: NYSTATIN 100,000 UNIT/GM POWD 15 GM TOPICAL SCH ×2 (10:00→20:31)
[2022-11-12] MEDS: PANTOPRAZOLE 40 MG/10 ML VIAL IVP SCH (10:00)
[2022-11-12] MEDS: ATORVASTATIN 80 MG TAB PO SCH (10:00)
[2022-11-12] MEDS: METOPROLOL TARTRATE 12.5 MG TAB PO SCH ×2 (10:56→20:05)
[2022-11-12] MEDS: INSULIN DETEMIR (LEVEMIR) 100 UNIT/ML SYR SQ SCH ×3 (10:56→20:30)
[2022-11-12 11:55] LABS: Glucose,Whole Blood 101 mg/dL (70-110)
--- NOTE | 2022-11-12 12:10 | P.PN ---
Subjective Progress Note Date: 11/12/22 I am seeing this patient in new consultation today 11/06/2022 in the intensive care unit after the patient presented with non-ST elevation OK and cardiogenic shock requiring Impella insertion. Patient is a 77-year-old white female with past medical history significant for multivessel coronary artery disease with multiple previous coronary stents. Most recent coronary stenting done in May, to the first obtuse marginal branch of the circumflex and main circumflex coronary artery. Patient also has significant history of hypertension, hyperlipidemia, diabetes mellitus type 2, obesity, and chronic kidney disease. Her primary care provider is a nurse practitioner, Mickie Saenz, out of Dr. Miller office in [place]. Patient presented back on October with complaints of intermittent shortness of breath and chest pressure that started on the preceding Sunday or Sunday. This was accompanied with increased lower extremity swelling. She does have chronic lymphedema. Troponins had been trending up at 0.98, 1.59, and 2.2. ECG on arrival showed sinus tachycardia with possible septal-lateral myocardial infarction of indeterminate age, and right axis deviation. She was diagnosed with a non-ST elevation OK. She was originally admitted to the cardiac stepdown unit. Echocardiogram demonstrated a reduced ejection fraction of 20-25%, moderate mitral regurgitation, and moderate tricuspid regurgitation. She was taken for cardiac catheterization yesterday, which demonstrated the patient's multivessel coronary artery disease including 80-90% stenosis involving the mid LAD, 50% stenosis of the distal left main, 90% stenosis of the circumflex, and 90% restenosis of the previously stented obtuse marginal branch, there was chronic RCA stenosis with collaterals. Patient developed shock like symptoms, had elevated left ventricular end-diastolic pressure of 35-40 mmHg, and a Impella assist device was inserted. She was subsequently transferred to the intensive care unit. At this point, we were consulted yesterday afternoon. Patient is currently lying supine in bed, on 2 L/m nasal cannula, in no acute distress. Most recent chest x-ray from October was consistent with congestive heart failure with cardiomegaly, pulmonary vascular congestion, and bilateral pleural effusions. She is being diuresed with Lasix 40 mg every 8 hours. The Impella is inserted through the right groin. Flow is at P9. There is a pulmonary artery catheter with cardiac output/cardiac index reading 5.5/2.4 respectively. Pulmonary artery pressures are 44/18. Blood pressure is hypotensive at 75/52 mmHg. Heart rhythm appears normal sinus around 70 bpm on bedside monitor. Cardiology has just started the patient on norepinephrine, which was initiated at 0.05 mcg/kg/m. Heparin is infusing per Impella protocol. PTT is therapeutic. Fibrinogen level 374 There was small amount of oozing from the Impella insertion site. No hematoma formation. Pulses were found bilaterally with Doppler. Most recent CBC from yesterday shows a WBC count 7.9, hemoglobin 11.4, hematocrit 33.3, platelets 142. BMP from yesterday shows sodium 133, potassium 3.5, chloride 101, serum bicarb 27, BUN 44, creatinine improved to 1.42, glucose 185. Potassium is being replaced per protocol. Currently, the plan is for evaluation by cardiothoracic services for possible surgical revascularization. Impella is going to remain in place for now. Her prognosis is currently guarded related to above-mentioned c omorbidities. She will be monitored in the intensive care unit. The patient is seen today 11/07/2022 in follow-up in the intensive care unit. She is currently resting in bed. Awake and alert in no acute distress. She is having issues with ongoing epistaxis. She's currently on room air. She does remain on a heparin drip. Normal saline at 30 MLS per hour. ImPella remains in place to the right groin. Pulmonary artery catheter and right groin. Cardiac output 5.7. Cardiac index 2.5. PA pressure 51/41. CVP 12. Mean arterial blood pressure 74. Chest x-ray reveals cardiomegaly with diffuse interstitial prominence suspect CHF. Left lower lobe consolidation and small bilateral effusions. White count 12.1. Hemoglobin 11.6. Platelets 105. Sodium 1:30. Potassium 3.9. Bicarb 35. BUN 39. Creatinine 1.38. Glucose 182. AST 53. ALT 21. The plan is return to the [facility] tomorrow. Remains on Lasix 80 mg IV every 8 hours. Currently in a -5.7 L balance. The patient is seen today 11/08/2022 in follow-up in the intensive care unit. She is awake and alert in no acute distress. Continue O2 saturations in the 90s on a Ventimask at 35% FiO2. No further epistaxis. Receiving Afrin nasal spray. She remains on heparin drip. She has normal saline at KVO. The Impala remains in place. Currently set at P-8. Cardiac output 3.6. Plan is to return to the [facility] today. White count 13.6. Hemoglobin 12.6. Platelets 108. Sodium 132. Potassium 3.3. Bicarb 40. BUN 46. Creatinine 1.47. Glucose 126. LDH 1334. Albumin 3.0. She remains on IV Lasix and Zaroxolyn. Currently in a -1.2 L balance. Chest x-ray continues show cardiomegaly with diffuse interstitial prominence. Stable compared to previous The patient is seen today 11/09/2022 in follow-up in the intensive care unit. She is sitting up in bed. Awake and alert in no acute distress. She is maintaining good O2 saturations in the 90s on room air. Chest x-ray shows mild cardiomegaly. Improved appearance of the pulmonary vascular. No acute process seen. Her Impella was removed yesterday. Heparin drip is off. She is requiring norepinephrine at 0.07 mcg/kg/m. She has normal saline at 50 ML's per hour. She did undergo stenting 4 yesterday and remains on Plavix and aspirin. White count 19.8. Hemoglobin 9.7. Platelets 128. Sodium 126. Potassium 4.2. Bicarb 31. BUN 55. Creatinine 2.55. Glucose 290. LDH 833. The patient is seen today 11/10/2022 in follow-up in the intensive care unit. She is awake and alert in no acute distress. Maintaining good O2 saturations in the 90s on room air. She is still requiring norepinephrine at 0.03 mcg/kg/m. Normal saline at 50 ML's per hour. Sodium 129. Potassium 4.3. Bicarb 28. BUN 67. Creatinine 3.92. LDH 620. Glucose 124. Nephrology has been consulted. She remains on Plavix and aspirin. The patient is seen today 11/11/2022 in follow-up in the intensive care unit. She is awake and alert in no acute distress. Maintaining good O2 saturations in the 90s on room air. She remains on normal saline at 50 MLS per hour. She is still requiring a small dose of norepinephrine at 0.05 mcg/kg/m to keep the mean arterial pressure greater than 60. White count 15.2. Hemoglobin 8.0. Platelets 132. Sodium 129. Potassium 4.5. Bicarb 23. BUN 83. Creatinine 4.73. Glucose 124. TSH 2.060. Cortisol level XLIV. Urinalysis with positive nitrates, large leukocytes, high WBCs. The patient is seen today 11/12/2022 in follow-up in the intensive care unit. She is currently sitting up in a chair at the bedside. Awake and alert in no acute distress. Maintaining good O2 saturations in the 90s on room air. Her norepinephrine has been off since 7 AM. She has normal saline at 50 MLS per hour. She did receive 1 unit of packed red blood cells yesterday for hemoglobin 8.0 per medical service. White count 12.7. Platelets 118. Sodium 133. Potassium 5.2. Bicarb 25. BUN 91. Creatinine 4.17. Glucose 101. She remains in a positive balance. Objective - Vital Signs Vital signs: Vital Signs Temp 98.1 F 11/12/22 08:00 Pulse 81 11/12/22 11:00 Resp 18 11/12/22 11:00 BP 113/48 11/12/22 11:00 Pulse Ox 96 11/12/22 11:00 FiO2 35 11/09/22 04:00 Intake & Output 11/11/22 11/12/22 11/12/22 18:59 06:59 18:59 Intake Total 810.429 996.669 100 Output Total 400 610 260 Balance 410.429 386.669 -160 Weight 131.8 kg 138.4 kg Intake: IV 550 650 100 Sodium Chloride 0.9% 1, 550 650 100 000 ml @ 50 mls/hr IV . Q20H [facility] Rx#:[id number] Intake, IV Titration 260.429 67.669 Amount Norepinephrine 4 mg In 260.429 67.669 Sodium Chloride 0.9% 250 ml @ 0.03 MCG/KG/MIN 15. 476 mls/hr IV .[id number] [facility] Rx#:[id number] Blood Product 279 Rc Pheresis As-3 Unit 279 [id number] Output: Urine 400 610 260 Other: Voiding Method Indwelling Catheter Indwelling Catheter Indwelling Catheter ABP, PAP, CO, CI - Last Documented Arterial Blood Pressure 124/45 Pulmonary Artery Pressure 61/55 Cardiac Output 5.7 Cardiac Index 2.5 - Exam GENERAL EXAM: Alert, pleasant 77-year-old female, up in a chair, on room air, comfortable in no apparent distress. HEAD: Normocephalic and atraumatic EYES: Normal reaction of pupils, equal size. NOSE: Clear with pink turbinates. THROAT: No erythema or exudates. NECK: No masses. Positive mild JVD CHEST: No chest wall deformity. LUNGS: Equal air entry with bibasilar inspiratory crackles. CVS: S1 and S2 normal with no audible murmur, regular rhythm. No extra heart sounds ABDOMEN: Obese abdomen, no hepatosplenomegaly, active bowel sounds, no guarding or rigidity. SPINE: No scoliosis or deformity SKIN: No rashes, bilateral lower extremity chronic venous changes. CENTRAL NERVOUS SYSTEM: No focal deficits, tone is normal in all 4 extremities. EXTREMITIES: There is bilateral lower extremity 1-2+ pitting edema. Movement and sensation intact. - Labs CBC & Chem 7: 11/12/22 04:48 11/12/22 04:48 Labs: Abnormal Lab Results - Last 24 Hours (Table) 11/11/22 11/11/22 11/11/22 Range/Units 17:41 18:11 20:09 WBC (3.8-10.6) k/uL RBC (3.80-5.40) m/uL Hgb (11.4-16.0) gm/dL Hct (34.0-46.0) % RDW (11.5-15.5) % Plt Count (150-450) k/uL Sodium (137-145) mmol/L Potassium (3.5-5.1) mmol/L BUN (7-17) mg/dL Creatinine (0.52-1.04) mg/dL Glucose (74-99) mg/dL POC Glucose (mg/dL) 224 H 145 H (70-110) mg/dL Calcium (8.4-10.2) mg/dL Crossmatch See Detail 11/12/22 11/12/22 Range/Units 04:48 04:48 WBC 12.7 H (3.8-10.6) k/uL RBC 2.54 L (3.80-5.40) m/uL Hgb 8.0 L (11.4-16.0) gm/dL Hct 22.8 L (34.0-46.0) % RDW 15.6 H (11.5-15.5) % Plt Count 118 L (150-450) k/uL Sodium 133 L (137-145) mmol/L Potassium 5.2 H (3.5-5.1) mmol/L BUN 91 H (7-17) mg/dL Creatinine 4.17 H (0.52-1.04) mg/dL Glucose 62 L (74-99) mg/dL POC Glucose (mg/dL) (70-110) mg/dL Calcium 8.3 L (8.4-10.2) mg/dL Crossmatch Assessment and Plan Assessment: Non-ST elevation myocardial infarction, status post heart catheterization on 11/05 demonstrating multivessel coronary artery disease. Status post stenting 4 on 11/08/2022 Cardiogenic shock, status post insertion of a Impella catheter on 11/05 and removed on 11/08/2022. Also, required low-dose norepinephrine. Acute hypoxemic respiratory failure, improved, currently on 35% FiO2 via Ventimask, secondary to exacerbation of systolic congestive heart failure. Most recent chest x-ray from today 11/08/2022 is consistent with congestive heart failure with cardiomegaly, pulmonary vascular congestion, and bilateral pleural effusions. Echocardiogram demonstrated a reduced ejection fraction of 20-25%, m oderate mitral regurgitation, and moderate tricuspid regurgitation. Epistaxis secondary to blood thinners, improved and on Afrin nasal spray Acute on chronic kidney disease, worsening following contrast History of coronary artery disease with multiple previous PCI and coronary stenting with previous in-stent restenosis History of hypertension Hyperlipidemia Diabetes mellitus type 2 Chronic kidney disease stage III Morbid obesity, with a BMI of 54.6 kg/m Lifelong nonsmoker Plan: The patient was seen and evaluated Labs and medications reviewed Currently on room air Taking the current treatment plan Improved and off norepinephrine Transfer to cardiac stepdown unit Condition remains guarded We'll continue to follow I have personally seen and examined the patient, performed the documentation and the assessment and plan as written. Number of minutes spent on the visit: 10.
--- NOTE | 2022-11-12 14:42 | P.PN ---
Subjective Progress Note Date: 11/12/22 Follow-up for acute kidney injury. Off levo fed, urine output of 1 L in the last 24 hours. Objective - Vital Signs Vital signs: Vital Signs Temp 98.0 F 11/12/22 12:00 Pulse 85 11/12/22 13:30 Resp 21 11/12/22 13:30 BP 95/53 11/12/22 13:30 Pulse Ox 96 11/12/22 13:30 FiO2 35 11/09/22 04:00 Intake & Output 11/11/22 11/12/22 11/12/22 18:59 06:59 18:59 Intake Total 810.429 996.669 100 Output Total 400 610 385 Balance 410.429 386.669 -285 Weight 131.8 kg 138.4 kg Intake: IV 550 650 100 Sodium Chloride 0.9% 1, 550 650 100 000 ml @ 50 mls/hr IV . Q20H [facility] Rx#:[id number] Intake, IV Titration 260.429 67.669 Amount Norepinephrine 4 mg In 260.429 67.669 Sodium Chloride 0.9% 250 ml @ 0.03 MCG/KG/MIN 15. 476 mls/hr IV .[id number] [facility] Rx#:[id number] Blood Product 279 Rc Pheresis As-3 Unit 279 [id number] Output: Urine 400 610 385 Other: Voiding Method Indwelling Catheter Indwelling Catheter Indwelling Catheter ABP, PAP, CO, CI - Last Documented Arterial Blood Pressure 124/45 Pulmonary Artery Pressure 61/55 Cardiac Output 5.7 Cardiac Index 2.5 - Exam No acute distress S1-S2 heard Decreased breath sounds Abdomen soft Edema - Labs CBC & Chem 7: 11/12/22 04:48 11/12/22 04:48 Labs: Abnormal Lab Results - Last 24 Hours (Table) 11/11/22 11/11/22 11/11/22 Range/Units 17:41 18:11 20:09 WBC (3.8-10.6) k/uL RBC (3.80-5.40) m/uL Hgb (11.4-16.0) gm/dL Hct (34.0-46.0) % RDW (11.5-15.5) % Plt Count (150-450) k/uL Sodium (137-145) mmol/L Potassium (3.5-5.1) mmol/L BUN (7-17) mg/dL Creatinine (0.52-1.04) mg/dL Glucose (74-99) mg/dL POC Glucose (mg/dL) 224 H 145 H (70-110) mg/dL Calcium (8.4-10.2) mg/dL Crossmatch See Detail 11/12/22 11/12/22 Range/Units 04:48 04:48 WBC 12.7 H (3.8-10.6) k/uL RBC 2.54 L (3.80-5.40) m/uL Hgb 8.0 L (11.4-16.0) gm/dL Hct 22.8 L (34.0-46.0) % RDW 15.6 H (11.5-15.5) % Plt Count 118 L (150-450) k/uL Sodium 133 L (137-145) mmol/L Potassium 5.2 H (3.5-5.1) mmol/L BUN 91 H (7-17) mg/dL Creatinine 4.17 H (0.52-1.04) mg/dL Glucose 62 L (74-99) mg/dL POC Glucose (mg/dL) (70-110) mg/dL Calcium 8.3 L (8.4-10.2) mg/dL Crossmatch Assessment and Plan Assessment: #1 oliguric acute kidney injury multifactorial ATN -Hemodynamics with low blood pressures -Contrast associated nephropathy -Baseline creatinine 1.2 MG per DL -Urine analysis hematuria, pyuria. -Renal ultrasound no hydronephrosis #2 hyponatremia, euvolemic. #3 non-ST elevation SC status post cardiac cath #4 chronic kidney disease stage III suspected to nephrosclerosis #5 shock off levo fed Plan: #1 hemodynamics better. #2 renal function high, urine output improving. Anticipate renal function to plateau and start improving. #3 avoid nephrotoxic agents and hypotensive episodes. #4 no acute indication for [employer] today.
--- NOTE | 2022-11-12 16:05 | P.PN ---
Subjective Progress Note Date: 11/12/22 The patient is a 77-year-old female with multiple comorbid conditions who presented to the hospital with shortness of breath, edema, and intrascapular pain. She was ruled in for non-ST elevated myocardial infarction and exacerbation of chronic systolic heart failure. Coronary angiogram showed severe triple-vessel disease with chronically occluded RCA, 50% left main disease, 80-90% mid LAD stenosis, 90% ostial left circumflex stenosis, and 90% in-stent restenosis of stent in the OM1. roving sizer was notified and she underwent Impella placement for cardiogenic shock. Echocardiogram reveals EF at 20-25% with moderate MR and moderate TR. On 11/08/2022 the patient underwent stenting of the left main, PCI of the LAD, and PCI of the OM1. Postprocedure the patient has developed hypotension and acute kidney injury. The patient has now successfully been weaned from her Levophed drip. She is up in the recliner chair. The patient was interviewed and examined resting comfortably in the recliner chair. She states she still has weakness and fatigue, but is feeling better than yesterday. No chest pain or chest pressure. GENERAL: Well-appearing, obese female. NECK: Supple without JVD or thyromegaly. LUNGS: Breath sounds diminished to auscultation bilaterally. Respiration equal and unlabored. No wheezes, rales or rhonchi. HEART: Regular rate and rhythm without murmurs, rubs or gallops. S1 and S2 heard. EXTREMITIES: Normal range of motion, mild generalized edema. No clubbing or cyanosis. Bilateral groin sites show no evidence of bleeding or hematoma TELEMETRY: Sinus rhythm with IVCD LABS: WBC 12.7, hemoglobin 8.0, hematocrit 22.8, platelets 118, sodium 133, potassium 5.2, BUN 91, creatinine 4.17 IMPRESSION: Non-ST elevated myocardial infarction Severe coronary artery disease with prior stenting and in-stent restenosis Cardiogenic shock requiring high-dose pressors and Impella placement Valvular heart disease Diabetes mellitus Morbid obesity Acute kidney injury, secondary to contrast load Hyponatremia, secondary to ADE Anemia PLAN: Continue current cardiac medication Continue to monitor electrolytes and kidney function Further recommendations to be based on clinical course I am dictating on behalf of Dr Jeronimo Adams's history/physical and assessment/p phil. Objective - Vital Signs Vital signs: Vital Signs Temp 98.0 F 11/12/22 12:00 Pulse 85 11/12/22 15:30 Resp 21 11/12/22 15:30 BP 106/38 11/12/22 15:30 Pulse Ox 96 11/12/22 15:30 FiO2 35 11/09/22 04:00 Intake & Output 11/11/22 11/12/22 11/12/22 18:59 06:59 18:59 Intake Total 810.429 996.669 100 Output Total 400 610 385 Balance 410.429 386.669 -285 Weight 131.8 kg 138.4 kg Intake: IV 550 650 100 Sodium Chloride 0.9% 1, 550 650 100 000 ml @ 50 mls/hr IV . Q20H [facility] Rx#:[id number] Intake, IV Titration 260.429 67.669 Amount Norepinephrine 4 mg In 260.429 67.669 Sodium Chloride 0.9% 250 ml @ 0.03 MCG/KG/MIN 15. 476 mls/hr IV .[id number] [facility] Rx#:[id number] Blood Product 279 Rc Pheresis As-3 Unit 279 [id number] Output: Urine 400 610 385 Other: Voiding Method Indwelling Catheter Indwelling Catheter Indwelling Catheter ABP, PAP, CO, CI - Last Documented Arterial Blood Pressure 124/45 Pulmonary Artery Pressure 61/55 Cardiac Output 5.7 Cardiac Index 2.5 - Labs CBC & Chem 7: 11/12/22 04:48 11/12/22 04:48 Labs: Abnormal Lab Results - Last 24 Hours (Table) 11/11/22 11/11/22 11/11/22 Range/Units 17:41 18:11 20:09 WBC (3.8-10.6) k/uL RBC (3.80-5.40) m/uL Hgb (11.4-16.0) gm/dL Hct (34.0-46.0) % RDW (11.5-15.5) % Plt Count (150-450) k/uL Sodium (137-145) mmol/L Potassium (3.5-5.1) mmol/L BUN (7-17) mg/dL Creatinine (0.52-1.04) mg/dL Glucose (74-99) mg/dL POC Glucose (mg/dL) 224 H 145 H (70-110) mg/dL Calcium (8.4-10.2) mg/dL Crossmatch See Detail 11/12/22 11/12/22 Range/Units 04:48 04:48 WBC 12.7 H (3.8-10.6) k/uL RBC 2.54 L (3.80-5.40) m/uL Hgb 8.0 L (11.4-16.0) gm/dL Hct 22.8 L (34.0-46.0) % RDW 15.6 H (11.5-15.5) % Plt Count 118 L (150-450) k/uL Sodium 133 L (137-145) mmol/L Potassium 5.2 H (3.5-5.1) mmol/L BUN 91 H (7-17) mg/dL Creatinine 4.17 H (0.52-1.04) mg/dL Glucose 62 L (74-99) mg/dL POC Glucose (mg/dL) (70-110) mg/dL Calcium 8.3 L (8.4-10.2) mg/dL Crossmatch
[2022-11-12 17:35] LABS: Glucose,Whole Blood 122 mg/dL (70-110)
[2022-11-12] MEDS: SODIUM CHLORIDE 0.9% 1,000 ML IV SCH (17:59)
--- NOTE | 2022-11-12 18:18 | P.PN ---
Progress Note - Text Progress Note Date: 11/12/22 Hospital course. follows with Dr. Miller. Wind Turbine Machinist Dr. Krause. .77 years old female with past medical history of History of coronary artery disease status post stenting, diabetes mellitus, hypertension, hyperlipidemia Patient presents because of worsening dyspnea over one week with possible elements of orthopnea. Also patient reports worsening of leg swelling. Occasional coughing. Occasional chest pain when lying down, last episode was 2 days ago currently patient denies any chest pain or discomfort and epigastric pain or neck pain. She does not look in respiratory distress when she talks easily and she does not use accessory respiratory muscles. She denies any urinary GI or neurological specific symptoms to me. She denies smoking alcohol or illicit drugs. Her PCP is Dr. Miller and her glaze grinder is Dr. Krause Patient is mildly tachycardic and tachypneic labs reviewed, CBC, INR within the reference range. Creatinine is elevated 1.4, and 1.3 which is at or close to baseline of 1.2-1.4. mildly elevated lactic acid came back to normal. Troponin 1.5, 2.2 Chest x-ray: Cardiomegaly with pulmonary vascular congestion and bilateral pleural effusion. Possible congestive heart failure Echocardiogram from : Ejection fraction of 35-40% with dilated left ventricle with severe LV dysfunction and 2+ mitral regurgitation 11/04: Patient seen and evaluated bedside, home medications reviewed. Started on high-dose correctional insulin as well as Lantus. Aldactone discontinued. Continue patient on IV Lasix, continue IV heparin planned for cardiac catheterization 11/05: Patient seen and evaluated bedside. Patient is status post cardiac catheterization transferred to medical ICU. Status post impela placement, patient transferred to medical ICU. Cardiology and MICU team consulted and notified about new consult. Patient evaluated alert and oriented times 3.Care plan discussed with family denies of chest pain November 06: I assumed care of the patient today. ICU. Laying in bed. No chest pain. Currently on Impella. 2 L dose cannula. Patient this afternoon is nothing by mouth. High risk for surgery, pending decision as per cardiology. For further intervention. This admission was found over in-stent stenosis of OM1. November 07: ICU. Had a severe episode of epistaxis this morning. ENT was consulted. Nasal packing. We will use nasal cannula through the polyps to keep the oxygen up. Currently plan for patient to go back to the cardiac laborer cement gun placing t omorrow. Eating. Impella P-8. IV heparin November 08: ICU. Today patient changing of the cardiac laborer cement gun placing by Dr. Osborne. Patient did get us stent to the obtuse marginal, circumflex. 2 stents to the LAD. Postprocedure brought back to the ICU. Started on before. 0.11 g. Sinus rhythm. Laying in bed awake tired. Is on Ventimask. No further epistaxis. Since yesterday. Patient be started on IV heparin after the sheath is pulled out. November 09: ICU. Laying in bed. Feeling very tired. On levo fed. Entresto diuretics have been held. Gentle IV fluids per cardiology. Nitrates held. November 10: ICU. In bed. Continues to feel very tired. Remains on levo fed. Lopressor held this morning because of low blood pressure. On IV fluids 50 mL an hour. Eating some. Discussed. Worsening kidney function. November 11: ICU. Sitting up in a chair. Feeling tired. Decreased appetite. Remains on levo fed. Worsening renal function. 4.73. Being followed by nephrology. Patient hemoglobin is down to 8 from admission hemoglobin of 14. Patient very tired. Hypotensive cardiogenic shock. We will transfuse a unit to improve renal perfusion and blood pressure. November 12: ICU. Up in a chair. Feels a bit better. Did eat some. Patient is off levo fed. IV fluids 50 mL an hour. Creatinine has started to turn around 4.17. Making urine. Patient's and son at the bedside. Discussed. Still prognosis guarded. Patient did get a unit of blood yesterday. Hemoglobin is still around 8. Blood pressure running in the 90s. Systolic. Put for perfusion purposes blood pressure and patient is rather tired. Accu-Chek went down this morning. Insulin adjusted. Still decreased appetite Active Medications Acetaminophen (Acetaminophen Tab 325 Mg Tab) 650 mg PO Q4HR PRN PRN Reason: Pain Last Admin: 11/09/22 19:06 Dose: 650 mg Al Hydroxide/Mg Hydroxide (Mag Hydrox/Al Hydrox/Simeth 30 Ml Cup) 30 ml PO Q4HR PRN PRN Reason: Heartburn Last Admin: 11/10/22 21:15 Dose: 30 ml Alprazolam (Alprazolam 0.25 Mg Tab) 0.25 mg PO Q6HR PRN PRN Reason: Mild Anxiety Last Admin: 11/10/22 11:38 Dose: 0.25 mg Alprazolam (Alprazolam 0.5 Mg Tab) 0.5 mg PO Q6HR PRN PRN Reason: Moderate Anxiety Ascorbic Acid (Ascorbic Acid 500 Mg Tab) 1,000 mg PO DAILY [facility] Last Admin: 11/12/22 09:55 Dose: Not Given Aspirin (Aspirin 81 Mg) 162 mg PO DAILY [facility] Last Admin: 11/12/22 10:00 Dose: 162 mg Atorvastatin Calcium (Atorvastatin 80 Mg Tab) 80 mg PO DAILY [facility] Last Admin: 11/12/22 10:00 Dose: 80 mg Atropine Sulfate (Atropine Sulfate 0.1 Mg/Ml 10ml Syringe) 0.5 mg IV ONCE PRN PRN Reason: Symptomatic Bradycardia Cholecalciferol (Cholecalciferol 25 Mcg (1000 Iu) Tablet) 25 mcg PO DAILY [facility] Last Admin: 11/12/22 09:55 Dose: Not Given Clopidogrel Bisulfate (Clopidogrel 75 Mg Tab) 75 mg PO DAILY [facility] Last Admin: 11/12/22 10:00 Dose: 75 mg Dextrose/Water (Dextrose 50% Syringe 50 Ml) 25 ml IVP PER PROTOCOL PRN; Prot ocol PRN Reason: Hypoglycemia Dextrose/Water (Dextrose 50% Syringe 50 Ml) 50 ml IVP PER PROTOCOL PRN; Protocol PRN Reason: Hypoglycemia Norepinephrine Bitartrate 4 mg (/ Sodium Chloride) 254 mls @ 15.476 mls/hr IV .[id number] [facility]; Protocol Last Titration: 11/12/22 06:49 Dose: 0 mcg/kg/min, 0 mls/hr Sodium Chloride (Saline 0.9%) 1,000 mls @ 50 mls/hr IV .Q20H [facility] Last Admin: 11/12/22 17:59 Dose: Not Given Insulin Aspart (Insulin Aspart (Novolog) 100 Unit/Ml Vial) 0 unit SQ ACHS [facility]; Protocol Last Admin: 11/12/22 17:59 Dose: Not Given Insulin Detemir (Insulin Detemir (Levemir) 100 Unit/Ml Syr) 30 unit SQ BID@0700,2100 [facility] Last Admin: 11/12/22 10:56 Dose: 30 unit Metoprolol Tartrate (Metoprolol Tartrate 12.5 Mg Tab) 12.5 mg PO BID ROHIT Last Admin: 11/12/22 10:56 Dose: Not Given Miscellaneous Information (Potassium Replacement Protocol 1 Each Misc) 1 each MISCELLANE DAILY PRN; Protocol PRN Reason: Per Protocol Morphine Sulfate (Morphine Sulfate 4 Mg/Ml Syringe) 4 mg IV Q5M PRN PRN Reason: Chest Pain Morphine Sulfate (Morphine Sulfate 2 Mg/Ml Syringe) 2 mg IVP Q6HR PRN PRN Reason: Pain/Discomfort Last Admin: 11/10/22 17:58 Dose: 2 mg Nitroglycerin (Nitroglycerin Sl Tabs 0.4 Mg Tab) 0.4 mg SUBLINGUAL Q5M PRN PRN Reason: Chest Pain Last Admin: 11/10/22 11:38 Dose: 0.4 mg Nystatin (Nystatin 100,000 Unit/Gm Powd 15 Gm) 1 applic TOPICAL BID ROHIT; P rotocol Last Admin: 11/12/22 10:00 Dose: 1 applic Ondansetron HCl (Ondansetron 4 Mg/2 Ml Vial) 4 mg IVP Q8HR PRN PRN Reason: Nausea And Vomiting Last Admin: 11/08/22 08:45 Dose: 4 mg Pantoprazole Sodium (Pantoprazole 40 Mg/10 Ml Vial) 40 mg IVP DAILY ROHIT Last Admin: 11/12/22 10:00 Dose: 40 mg Senna (Sennosides 8.6 Mg Tab) 8.6 mg PO DAILY PRN PRN Reason: Constipation Last Admin: 11/12/22 08:08 Dose: 8.6 mg Zolpidem Tartrate (Zolpidem 5 Mg Tab) 5 mg PO HS PRN PRN Reason: Insomnia Past medical history to include: Diabetes, hypertension, hyperlipidemia, VT in 2010, CAD with stent in 2019 Social history: . No smoking or alcohol Physical examination: VITAL SIGNS: 98, 87, 13, 95/50, 94% GENERAL: , Up in a chair, awake, tired EYES: Pupils equal. Conjunctiva normal. HEENT: External appearance of nose and ears normal, oral cavity grossly normal. NECK: JVD not raised; masses not palpable. HEART: First and second heart sounds are normal; some edema. LUNGS: Respiratory rate normal; decreased breath sound. ABDOMEN: Soft, nontender, liver spleen not palpable, no masses palpable. PSYCH: Alert and oriented x3; mood and affect tired MUSCULOSKELETAL:No Clubbing/cyanosis;muscles-grossly intact. OA INVESTIGATIONS, reviewed in the clinical context: November 12: White count 12.7 hemoglobin 8 platelets 118 potassium 5.2 BUN 91 creatinine 4.17 November 11: White count 15.2 hemoglobin 8 sodium 129 potassium 4.5 BUN 83 creatinine 4.73 November 10: Sodium 129 potassium 4.3 creatinine 3.9 to November 09 dose: White count 19.8 hemoglobin 9.7 platelets 128 sodium 126 potassium 4.2 BUN 55 creatinine 2.55 November 08: White count 13.6 hemoglobin 12.6 sodium 132 potassium 3.3 BUN 46 creatinine 1.47 November 07: White count 12.1 hemoglobin 11.6 platelets 105 November 06: White count 7.8 hemoglobin 11.8 platelets 131 sodium 135 potassium 4.2 BUN 44 creatinine 1.47 2-D echocardiogram [limited close bracket: EF 20%. She seemingly reduced LV function. Previous labs: Creatinine 1.22 on May 2022 Assessment and plan: -Acute non-Q-wave VT. Known CAD. Aspirin, IV heparin, beta darian -November 08: 1 stent to the OM, 1 stent to circumflex, 2 stents to the LAD by Dr. Osborne. -Cardiogenic shock: Not improving IV levo fed. - known 3-vessel CAD with chronically occluded RCA, with stents -Severe epistaxis. Possibly precipitated by IV heparin and nasal cannula.: Controlled Seen by Dr. Jayson Resendiz. Nasal packing. -Acute blood loss anemia hemoglobin that dropped from 14-8. Symptomatic. Patient received a unit of blood yesterday. Was given a unit of blood because of low blood pressure and current symptoms. -Acute on chronic congestive diastolic heart failure of systolic dysfunction, EF 20 %, ischemic cardiomyopathy: Stable for now. Impella placed-November 05-stopped November 08. Coreg. And Entresto and Zaroxolyn held -Diabetes mellitus type 2, chronically on insulin: Uncontrolled with hyperglycemia Levemir 36 mg subcu every 12. NovoLog 6 units 3 times a day follow Accu-Cheks with sliding scale -Essential hypertension-blood pressure currently low. Meds held -Acute kidney injury, ATN likely cardiorenal: Slow to respond Creatinine was 1.2 in May 2022 Creatinine today 3.92 IV fluids 50 mL an hour -Chronic kidney disease multifactorial, stage III -Morbid obesity BMI 56.2 Weight loss measures. Follow with PCP. -Full code Given as a unit of blood. Discussed with patient and family the bedside. Prognosis still guarded. Gentle hydration.
[2022-11-12 20:29] LABS: Glucose,Whole Blood 209 mg/dL (70-110)
[2022-11-13 04:36] LABS: HGB 7.5 gm/dL (11.4-16.0); MCH 31.6 pg (25.0-35.0); MCV 92.9 fL (80.0-100.0); Mean Platelet Volume 11.8; RBC 2.37 m/uL (3.80-5.40); RDW 15.5 % (11.5-15.5); WBC 10.7 k/uL (3.8-10.6)
[2022-11-13 04:52] LABS: African American GFR (CKD) 14 (>60 ml/min/1.73 sqM); Anion Gap 10 mmol/L; Blood Urea Nitrogen 79 mg/dL (7-17); Calcium 7.9 mg/dL (8.4-10.2); Carbon Dioxide 24 mmol/L (22-30); Chloride 99 mmol/L (98-107); Glucose 57 mg/dL (74-99); Non-African American GFR(CKD) 13 (>60 ml/min/1.73 sqM); Potassium 3.6 mmol/L (3.5-5.1); Sodium 133 mmol/L (137-145)
[2022-11-13 04:55] LABS: Platelet Count 129 k/uL (150-450)
[2022-11-13 07:09] LABS: Glucose,Whole Blood 84 mg/dL (70-110)
--- NOTE | 2022-11-13 07:39 | P.PN ---
Subjective Progress Note Date: 11/13/22 Principal diagnosis: Coronary artery disease The patient is a pleasant 77-year-old female patient with CAD and cardiomyopathy as well as hypertension and dyslipidemia who underwent recently successful stenting of the LAD and LCx. The echo showed cardiomyopathy. The patient was seen by the surgical team and the beginning and she deemed to be high risk for open heart surgery and for that reason she underwent percutaneous coronary intervention November [id number] The patient was seen and evaluated this morning. She is asymptomatic at this point. She is hemodynamically stable beside marginally low blood pressure. She is on dual antiplatelet therapy along with a statin along with beta darian as well. Examination is remarkable for regular rhythm with clear breathing sounds bilaterally Assessment CAD as described above Severe ischemic cardiomyopathy Hypertension Dyslipidemia Plan Continue the current medical regimen Consider adding CHRISTIAN inhibitor to the current medical regimen once the pressure improved Follow-up with the patient Objective - Vital Signs Vital signs: Vital Signs Temp 97.7 F 11/13/22 04:00 Pulse 89 11/13/22 07:00 Resp 24 11/13/22 07:00 BP 95/47 11/13/22 06:00 Pulse Ox 94 L 11/13/22 07:00 FiO2 35 11/09/22 04:00 Intake & Output 11/12/22 11/13/22 11/13/22 18:59 06:59 18:59 Intake Total 100 Output Total 685 600 Balance -585 -600 Weight 132.2 kg Intake: IV 100 Sodium Chloride 0.9% 1, 100 000 ml @ 50 mls/hr IV . Q20H [facility] Rx#:[id number] Output: Urine 685 600 Other: Voiding Method Indwelling Catheter Indwelling Catheter ABP, PAP, CO, CI - Last Documented Arterial Blood Pressure 124/45 Pulmonary Artery Pressure 61/55 Cardiac Output 5.7 Cardiac Index 2.5 - Labs CBC & Chem 7: 11/13/22 04:20 11/13/22 04:20 Labs: Abnormal Lab Results - Last 24 Hours (Table) 11/11/22 11/12/22 11/12/22 Range/Units 18:11 17:34 20:29 WBC (3.8-10.6) k/uL RBC (3.80-5.40) m/uL Hgb (11.4-16.0) gm/dL Hct (34.0-46.0) % Plt Count (150-450) k/uL Sodium (137-145) mmol/L BUN (7-17) mg/dL Creatinine (0.52-1.04) mg/dL Glucose (74-99) mg/dL POC Glucose (mg/dL) 122 H 209 H (70-110) mg/dL Calcium (8.4-10.2) mg/dL Crossmatch See Detail 11/13/22 11/13/22 Range/Units 04:20 04:20 WBC 10.7 H (3.8-10.6) k/uL RBC 2.37 L (3.80-5.40) m/uL Hgb 7.5 L (11.4-16.0) gm/dL Hct 22.0 L (34.0-46.0) % Plt Count 129 L (150-450) k/uL Sodium 133 L (137-145) mmol/L BUN 79 H (7-17) mg/dL Creatinine 3.40 H (0.52-1.04) mg/dL Glucose 57 L (74-99) mg/dL POC Glucose (mg/dL) (70-110) mg/dL Calcium 7.9 L (8.4-10.2) mg/dL Crossmatch
[2022-11-13] MEDS: INSULIN ASPART (NovoLOG) 100 UNIT/ML VIAL SQ SCH ×4 (07:59→21:30)
[2022-11-13] MEDS: CHOLECALCIFEROL 25 MCG (1000 IU) TABLET PO SCH (09:32)
[2022-11-13] MEDS: INSULIN DETEMIR (LEVEMIR) 100 UNIT/ML SYR SQ SCH (09:33)
[2022-11-13] MEDS: ATORVASTATIN 80 MG TAB PO SCH (09:33)
[2022-11-13] MEDS: CLOPIDOGREL 75 MG TAB PO SCH (09:33)
[2022-11-13] MEDS: ASPIRIN 81 MG PO SCH (09:33)
[2022-11-13] MEDS: ASCORBIC ACID 500 MG TAB PO SCH (09:33)
[2022-11-13] MEDS: NYSTATIN 100,000 UNIT/GM POWD 15 GM TOPICAL SCH ×2 (09:34→21:31)
[2022-11-13] MEDS: PANTOPRAZOLE 40 MG/10 ML VIAL IVP SCH (09:34)
[2022-11-13] MEDS: METOPROLOL TARTRATE 12.5 MG TAB PO SCH ×2 (09:34→21:31)
--- NOTE | 2022-11-13 10:08 | P.PN ---
Subjective Progress Note Date: 11/13/22 On today's evaluation of 2022, the patient is calm and comfortable, history of any chest pain and she is on room and oxygen with a pulse ox 94%. She is known to have coronary artery disease and CHF. The patient underwent recent stenting of the LAD and the circumflex. During the procedure, the patient had an insertion of a Impala device for cardiac output. The patient is doing well for now. Renal function is improved compared to yesterday. She is producing urine output. There is a drop in hemoglobin at the surgical once is over the groin are dry clean and intact. She is afebrile. She is hemodynamically stable. She is tolerating her diet. Cardiac rhythm is sinus at this point in time. The patient remains on aspirin. The patient remains on Plavix. The patient remains on metoprolol 12.5 mg twice a day. She is on statins and the patient remains on Lipitor 80 mg by mouth daily. She is on Levemir insulin 30 units along with that she is taking a slight scale insulin coverage. No other significant other issues for now. Objective - Vital Signs Vital signs: Vital Signs Temp 97.7 F 11/13/22 04:00 Pulse 89 11/13/22 07:00 Resp 24 11/13/22 07:00 BP 95/47 11/13/22 06:00 Pulse Ox 94 L 11/13/22 07:00 FiO2 35 11/09/22 04:00 Intake & Output 11/12/22 11/13/22 11/13/22 18:59 06:59 18:59 Intake Total 100 Output Total 685 600 Balance -585 -600 Weight 132.2 kg Intake: IV 100 Sodium Chloride 0.9% 1, 100 000 ml @ 50 mls/hr IV . Q20H [facility] Rx#:[id number] Output: Urine 685 600 Other: Voiding Method Indwelling Catheter Indwelling Catheter ABP, PAP, CO, CI - Last Documented Arterial Blood Pressure 124/45 Pulmonary Artery Pressure 61/55 Cardiac Output 5.7 Cardiac Index 2.5 - Exam GENERAL EXAM: Alert, pleasant 77-year-old female, up in a chair, on room air, comfortable in no apparent distress. HEAD: Normocephalic and atraumatic EYES: Normal reaction of pupils, equal size. NOSE: Clear with pink turbinates. THROAT: No erythema or exudates. NECK: No masses. Positive mild JVD CHEST: No chest wall deformity. LUNGS: Equal air entry with bibasilar inspiratory crackles. CVS: S1 and S2 normal with no audible murmur, regular rhythm. No extra heart sounds ABDOMEN: Obese abdomen, no hepatosplenomegaly, active bowel sounds, no guarding or rigidity. SPINE: No scoliosis or deformity SKIN: No rashes, bilateral lower extremity chronic venous changes. CENTRAL NERVOUS SYSTEM: No focal deficits, tone is normal in all 4 extremities. EXTREMITIES: There is bilateral lower extremity 1-2+ pitting edema. Movement and sensation intact. - Labs CBC & Chem 7: 11/13/22 04:20 11/13/22 04:20 Labs: Abnormal Lab Results - Last 24 Hours (Table) 11/11/22 11/12/22 11/12/22 Range/Units 18:11 17:34 20:29 WBC (3.8-10.6) k/uL RBC (3.80-5.40) m/uL Hgb (11.4-16.0) gm/dL Hct (34.0-46.0) % Plt Count (150-450) k/uL Sodium (137-145) mmol/L BUN (7-17) mg/dL Creatinine (0.52-1.04) mg/dL Glucose (74-99) mg/dL POC Glucose (mg/dL) 122 H 209 H (70-110) mg/dL Calcium (8.4-10.2) mg/dL Crossmatch See Detail 11/13/22 11/13/22 Range/Units 04:20 04:20 WBC 10.7 H (3.8-10.6) k/uL RBC 2.37 L (3.80-5.40) m/uL Hgb 7.5 L (11.4-16.0) gm/dL Hct 22.0 L (34.0-46.0) % Plt Count 129 L (150-450) k/uL Sodium 133 L (137-145) mmol/L BUN 79 H (7-17) mg/dL Creatinine 3.40 H (0.52-1.04) mg/dL Glucose 57 L (74-99) mg/dL POC Glucose (mg/dL) (70-110) mg/dL Calcium 7.9 L (8.4-10.2) mg/dL Crossmatch Assessment and Plan Plan: Non-ST elevation myocardial infarction, status post heart catheterization on 11/05 demonstrating multivessel coronary artery disease. Status post stenting 4 on 11/08/2022 Cardiogenic shock, status post insertion of a Impella catheter on 11/05 and removed on 11/08/2022. Also, required low-dose norepinephrine. Acute hypoxemic respiratory failure, improved, currently on 35% FiO2 via Ventimask, secondary to exacerbation of systolic congestive heart failure. Most recent chest x-ray from today 11/08/2022 is consistent with congestive heart failure with cardiomegaly, pulmonary vascular congestion, and bilateral pleural effusions. Echocardiogram demonstrated a reduced ejection fraction of 20-25%, moderate mitral regurgitation, and moderate tricuspid regurgitation. CHF with ejection fraction of 25% and moderate MR Epistaxis secondary to blood thinners, improved and on Afrin nasal spray, currently inactive and stable Acute on chronic kidney disease, worsening following contrast renal function continues to improve, and the creatinine is improved compared to yesterday History of coronary artery disease with multiple previous PCI and coronary sten ting with previous in-stent restenosis History of hypertension Hyperlipidemia Diabetes mellitus type 2 Chronic kidney disease stage III Morbid obesity, with a BMI of 54.6 kg/m Lifelong nonsmoker Plan: Clinically stable Hemodynamically stable Creatinine continues to improve Currently on room air Taking the current treatment plan Improved and off norepinephrine Transfer to cardiac stepdown unit Condition remains guarded
--- NOTE | 2022-11-13 10:43 | P.PN ---
Subjective Patient is seen in follow-up for acute kidney injury on chronic kidney disease. Renal function improving. Off IV fluids. No chest pain or shortness of breath. Rose catheter removed this morning. Hasn't voided on her own yet. Oral intake is good. Vital signs are stable. General: No acute distress. HEENT: Head exam is unremarkable. LUNGS: No audible rhonchi or wheezes. HEART: Rate and Rhythm are regular. ABDOMEN: Nontender. Extremities: No edema. Objective - Vital Signs Vital signs: Vital Signs Temp 97.7 F 11/13/22 04:00 Pulse 89 11/13/22 07:00 Resp 24 11/13/22 07:00 BP 95/47 11/13/22 06:00 Pulse Ox 94 L 11/13/22 07:00 FiO2 35 11/09/22 04:00 Intake & Output 11/12/22 11/13/22 11/13/22 18:59 06:59 18:59 Intake Total 100 Output Total 685 600 Balance -585 -600 Weight 132.2 kg Intake: IV 100 Sodium Chloride 0.9% 1, 100 000 ml @ 50 mls/hr IV . Q20H [facility] Rx#:[id number] Output: Urine 685 600 Other: Voiding Method Indwelling Catheter Indwelling Catheter ABP, PAP, CO, CI - Last Documented Arterial Blood Pressure 124/45 Pulmonary Artery Pressure 61/55 Cardiac Output 5.7 Cardiac Index 2.5 - Labs CBC & Chem 7: 11/13/22 04:20 11/13/22 04:20 Labs: Abnormal Lab Results - Last 24 Hours (Table) 11/11/22 11/12/22 11/12/22 Range/Units 18:11 17:34 20:29 WBC (3.8-10.6) k/uL RBC (3.80-5.40) m/uL Hgb (11.4-16.0) gm/dL Hct (34.0-46.0) % Plt Count (150-450) k/uL Sodium (137-145) mmol/L BUN (7-17) mg/dL Creatinine (0.52-1.04) mg/dL Glucose (74-99) mg/dL POC Glucose (mg/dL) 122 H 209 H (70-110) mg/dL Calcium (8.4-10.2) mg/dL Crossmatch See Detail 11/13/22 11/13/22 Range/Units 04:20 04:20 WBC 10.7 H (3.8-10.6) k/uL RBC 2.37 L (3.80-5.40) m/uL Hgb 7.5 L (11.4-16.0) gm/dL Hct 22.0 L (34.0-46.0) % Plt Count 129 L (150-450) k/uL Sodium 133 L (137-145) mmol/L BUN 79 H (7-17) mg/dL Creatinine 3.40 H (0.52-1.04) mg/dL Glucose 57 L (74-99) mg/dL POC Glucose (mg/dL) (70-110) mg/dL Calcium 7.9 L (8.4-10.2) mg/dL Crossmatch Assessment and Plan Plan: Assessment: 1. Acute kidney injury secondary to hemodynamic ATN as well as contrast associated acute kidney injury. No hydronephrosis noted on kidney ultrasound. Creatinine peaked at 4.73 this admission and is 3.4 today. Nonoliguric. 2. Chronic kidney disease stage IIIA with baseline creatinine 1.2. Suspect nephrosclerosis. 3. Cardiogenic shock status post Levophed. 4. Coronary artery disease status post LAD and left circumflex stenting this admission. 5. Severe ischemic cardiomyopathy with ejection fraction of 20-25% with moderate mitral and tricuspid regurgitation and pulmonary hypertension. 6. Diabetes mellitus. Plan: Encourage oral intake. Avoid nephrotoxins. Continue to monitor renal function and urine output. Rose catheter removed this morning. Monitor bladder scans to make sure no urinary retention. Discussed with nurse.
[2022-11-13 12:21] LABS: Glucose,Whole Blood 89 mg/dL (70-110)
--- NOTE | 2022-11-13 13:50 | P.PN ---
Progress Note - Text Progress Note Date: 11/13/22 Hospital course. follows with Dr. Miller. Subscription Agent Dr. Krause. .77 years old female with past medical history of History of coronary artery disease status post stenting, diabetes mellitus, hypertension, hyperlipidemia Patient presents because of worsening dyspnea over one week with possible elements of orthopnea. Also patient reports worsening of leg swelling. Occasional coughing. Occasional chest pain when lying down, last episode was 2 days ago currently patient denies any chest pain or discomfort and epigastric pain or neck pain. She does not look in respiratory distress when she talks easily and she does not use accessory respiratory muscles. She denies any urinary GI or neurological specific symptoms to me. She denies smoking alcohol or illicit drugs. Her PCP is Dr. 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 Krause Patient is mildly tachycardic and tachypneic labs reviewed, CBC, INR within the reference range. Creatinine is elevated 1.4, and 1.3 which is at or close to baseline of 1.2-1.4. mildly elevated lactic acid came back to normal. Troponin 1.5, 2.2 Chest x-ray: Cardiomegaly with pulmonary vascular congestion and bilateral pleural effusion. Possible congestive heart failure Echocardiogram from : Ejection fraction of 35-40% with dilated left ventricle with severe LV dysfunction and 2+ mitral regurgitation 11/04: Patient seen and evaluated bedside, home medications reviewed. Started on high-dose correctional insulin as well as Lantus. Aldactone discontinued. Continue patient on IV Lasix, continue IV heparin planned for cardiac catheterization 11/05: Patient seen and evaluated bedside. Patient is status post cardiac catheterization transferred to medical ICU. Status post impela placement, patient transferred to medical ICU. Cardiology and MICU team consulted and notified about new consult. Patient evaluated alert and oriented times 3.Care plan discussed with family denies of chest pain November 06: I assumed care of the patient today. ICU. Laying in bed. No chest pain. Currently on Impella. 2 L dose cannula. Patient this afternoon is nothing by mouth. High risk for surgery, pending decision as per cardiology. For further intervention. This admission was found over in-stent stenosis of OM1. November 07: ICU. Had a severe episode of epistaxis this morning. ENT was consulted. Nasal packing. We will use nasal cannula through the polyps to keep the oxygen up. 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 Eating. Impella P-8. IV heparin November 08: ICU. Today patient changing of the cardiac labor gang supervisor by Dr. Osborne. Patient did get us stent to the obtuse marginal, circumflex. 2 stents to the LAD. Postprocedure brought back to the ICU. Started on before. 0.11 g. Sinus rhythm. Laying in bed awake tired. Is on Ventimask. No further epistaxis. Since yesterday. Patient be started on IV heparin after the sheath is pulled out. November 09: ICU. Laying in bed. Feeling very tired. On levo fed. Entresto diuretics have been held. Gentle IV fluids per cardiology. Nitrates held. November 10: ICU. In bed. Continues to feel very tired. Remains on levo fed. Lopressor held this morning because of low blood pressure. On IV fluids 50 mL an hour. Eating some. Discussed. Worsening kidney function. November 11: ICU. Sitting up in a chair. Feeling tired. Decreased appetite. Remains on levo fed. Worsening renal function. 4.73. Being followed by nephrology. Patient hemoglobin is down to 8 from admission hemoglobin of 14. Patient very tired. Hypotensive cardiogenic shock. We will transfuse a unit to improve renal perfusion and blood pressure. November 12: ICU. Up in a chair. Feels a bit better. Did eat some. Patient is off levo fed. IV fluids 50 mL an hour. Creatinine has started to turn around 4.17. Making urine. Patient's and son at the bedside. Discussed. Still prognosis guarded. Patient did get a unit of blood yesterday. Hemoglobin is still around 8. Blood pressure running in the 90s. Systolic. Put for perfusion purposes blood pressure and patient is rather tired. Accu-Chek went down this morning. Insulin adjusted. Still decreased appetite November 13: ICU. Patient remains off diuretics and levo fed. Blood pressure 100. Still patient feeling tired. Patient received 6 units of blood yesterday. Hemoglobin is still below 8. Given the symptoms low blood pressure and significant loss of hemoglobin since admission to give another unit of blood. Encouraged patient for oral intake. Change insulin to 40 units Levemir in the morning. Hypoglycemia because of poor oral intake. Patient to sit up in a chair. Creatinine slowly coming down. Past medical history to include: Diabetes, hypertension, hyperlipidemia, NV in 2010, CAD with stent in 2019 Social history: . No smoking or alcohol Physical examination: VITAL SIGNS: Weight 0.2, 84, 19, 109/63, 92% room air GENERAL: , Up in a chair, awake, tired EYES: Pupils equal. Conjunctiva normal. HEENT: External appearance of nose and ears normal, oral cavity grossly normal. NECK: JVD not raised; masses not palpable. HEART: First and second heart sounds are normal; some edema. LUNGS: Respiratory rate normal; decreased breath sound. ABDOMEN: Soft, nontender, liver spleen not palpable, no masses palpable. PSYCH: Alert and oriented x3; mood and affect tired MUSCULOSKELETAL:No Clubbing/cyanosis;muscles-grossly intact. OA INVESTIGATIONS, reviewed in the clinical context: November 13: White count 10.70 globin 7.5 platelets 129 potassium 3.6 creatinine 3.4 blood glucose 57 November 12: White count 12.7 hemoglobin 8 platelets 118 potassium 5.2 BUN 91 creatinine 4.17 November 11: White count 15.2 hemoglobin 8 sodium 129 potassium 4.5 BUN 83 creatinine 4.73 November 10: Sodium 129 potassium 4.3 creatinine 3.9 to November 09 dose: White count 19.8 hemoglobin 9.7 platelets 128 sodium 126 potassium 4.2 BUN 55 creatinine 2.55 November 08: White count 13.6 hemoglobin 12.6 sodium 132 potassium 3.3 BUN 46 creatinine 1.47 November 07: White count 12.1 hemoglobin 11.6 platelets 105 November 06: White count 7.8 hemoglobin 11.8 platelets 131 sodium 135 potassium 4.2 BUN 44 creatinine 1.47 2-D echocardiogram [limited close bracket: EF 20%. She seemingly reduced LV function. Previous labs: Creatinine 1.22 on May 2022 Assessment and plan: -Acute non-Q-wave NV. Known CAD. Aspirin, IV heparin, beta darian -November 08: 1 stent to the OM, 1 stent to circumflex, 2 stents to the LAD by Dr. Osborne. -Cardiogenic shock: Not improving IV levo fed. - known 3-vessel CAD with chronically occluded RCA, with stents -Severe epistaxis. Possibly precipitated by IV heparin and nasal cannula.: Controlled Seen by Dr. Jayson Resendiz. Nasal packing. -Acute blood loss anemia hemoglobin that dropped from 14-8. Symptomatic. Given patient's symptoms and hemoglobin will order 30 unit of blood. -Acute on chronic congestive diastolic heart failure of systolic dysfunction, EF 20 %, ischemic cardiomyopathy: Stable for now. Impella placed-November 05-stopped November 08. Coreg. And Entresto and Zaroxolyn held -Diabetes mellitus type 2, chronically on insulin: Uncontrolled with hypoglycemia Change Levemir 40 mg subcu daily. follow Accu-Cheks with sliding scale -Essential hypertension-blood pressure currently low. Blood pressure and diuretics held. -Acute kidney injury, ATN likely cardiorenal: Slow to respond Creatinine was 1.2 in May 2022 Creatinine today 3.92 IV fluids 50 mL an hour -Chronic kidney disease multifactorial, stage III -Morbid obesity BMI 56.2 Weight loss measures. Follow with PCP. -Full code Discussed with patient. third unit of blood ordered. Patient encourage oral intake. Sit up in a chair. Follow labs. Levemir dose change.
[2022-11-13] MEDS: PSYLLIUM HUSK 100% 6 GM PACKET PO SCH ×2 (17:24→21:31)
[2022-11-13 17:31] LABS: Glucose,Whole Blood 222 mg/dL (70-110)
[2022-11-13 19:58] LABS: Glucose,Whole Blood 297 mg/dL (70-110)
[2022-11-13 21:04] LABS: Glucose,Whole Blood 260 mg/dL (70-110)
[2022-11-13] MEDS: SENNOSIDES 8.6 MG TAB PO PRN (21:30)
[2022-11-14 06:06] LABS: Glucose,Whole Blood 96 mg/dL (70-110)
[2022-11-14] MEDS: INSULIN ASPART (NovoLOG) 100 UNIT/ML VIAL SQ SCH ×4 (07:34→21:09)
--- NOTE | 2022-11-14 07:35 | P.PN ---
Subjective Progress Note Date: 11/14/22 Principal diagnosis: Coronary artery disease The patient is a pleasant 77-year-old female patient with CAD and cardiomyopathy as well as hypertension and dyslipidemia who underwent recently successful stenting of the LAD and LCx. The echo showed cardiomyopathy. The patient was seen by the surgical team and the beginning and she deemed to be high risk for open heart surgery and for that reason she underwent percutaneous coronary intervention November [id number] The patient was seen and evaluated this morning. She is asymptomatic at this point. She is hemodynamically stable beside marginally low blood pressure. She is on dual antiplatelet therapy along with a statin along with beta darian as well. Examination is remarkable for regular rhythm with clear breathing sounds bilaterally November 142022 The patient was seen and evaluated this morning she is asymptomatic and he would energy stable. From the cardiac standpoint of view, the patient can be transferred out of the intensive care unit Examination is remarkable for regular rhythm with diminished breathing sounds bilaterally Assessment CAD as described above Severe ischemic cardiomyopathy Hypertension Dyslipidemia Plan Continue the current medical regimen Consider adding CHRISTIAN inhibitor to the current medical regimen once the pressure improved Follow-up with the patient Objective - Vital Signs Vital signs: Vital Signs Temp 98.1 F 11/13/22 20:00 Pulse 85 11/14/22 07:00 Resp 26 H 11/14/22 07:00 BP 108/48 11/14/22 07:00 Pulse Ox 99 11/14/22 07:00 FiO2 35 11/09/22 04:00 Intake & Output 11/13/22 11/14/22 11/14/22 18:59 06:59 18:59 Intake Total 0 570 Output Total 401 401 600 Balance -401 -401 -30 Weight 135.3 kg Intake: IV 0 Sodium Chloride 0.9% 1, 0 000 ml @ 50 mls/hr IV . Q20H [facility] Rx#:[id number] Oral 570 Output: Urine 400 400 600 Stool 1 1 Other: Voiding Method Indwelling Catheter Bedpan Diaper # Voids 1 1 2 ABP, PAP, CO, CI - Last Documented Arterial Blood Pressure 124/45 Pulmonary Artery Pressure 61/55 Cardiac Output 5.7 Cardiac Index 2.5 - Labs CBC & Chem 7: 11/13/22 04:20 11/13/22 04:20 Labs: Abnormal Lab Results - Last 24 Hours (Table) 11/11/22 11/13/22 11/13/22 Range/Units 18:11 17:29 19:57 POC Glucose (mg/dL) 222 H 297 H (70-110) mg/dL Crossmatch See Detail 11/13/22 Range/Units 21:02 POC Glucose (mg/dL) 260 H (70-110) mg/dL Crossmatch
[2022-11-14] MEDS: INSULIN DETEMIR (LEVEMIR) 100 UNIT/ML SYR SQ SCH (08:57)
[2022-11-14] MEDS: PANTOPRAZOLE 40 MG/10 ML VIAL IVP SCH (08:57)
[2022-11-14] MEDS: ATORVASTATIN 80 MG TAB PO SCH (08:58)
[2022-11-14] MEDS: ASCORBIC ACID 500 MG TAB PO SCH (08:58)
[2022-11-14] MEDS: CLOPIDOGREL 75 MG TAB PO SCH (08:58)
[2022-11-14] MEDS: METOPROLOL TARTRATE 12.5 MG TAB PO SCH ×2 (08:58→21:09)
[2022-11-14] MEDS: ASPIRIN 81 MG PO SCH (08:58)
[2022-11-14] MEDS: NYSTATIN 100,000 UNIT/GM POWD 15 GM TOPICAL SCH ×2 (08:59→21:08)
[2022-11-14] MEDS: CHOLECALCIFEROL 25 MCG (1000 IU) TABLET PO SCH (08:59)
[2022-11-14] MEDS: PSYLLIUM HUSK 100% 6 GM PACKET PO SCH ×2 (08:59→21:08)
--- NOTE | 2022-11-14 09:22 | P.PN ---
Subjective Patient is seen in follow-up for acute kidney injury on chronic kidney disease. Renal function improving. Off IV fluids. No chest pain or shortness of breath. Nonoliguric. Has external catheter. Oral intake is good. Vital signs are stable. General: No acute distress. HEENT: Head exam is unremarkable. LUNGS: No audible rhonchi or wheezes. HEART: Rate and Rhythm are regular. ABDOMEN: Nontender. Extremities: No edema. Objective - Vital Signs Vital signs: Vital Signs Temp 98.4 F 11/14/22 08:00 Pulse 92 11/14/22 08:00 Resp 18 11/14/22 08:00 BP 108/48 11/14/22 08:00 Pulse Ox 97 11/14/22 08:00 FiO2 35 11/09/22 04:00 Intake & Output 11/13/22 11/14/22 11/14/22 18:59 06:59 18:59 Intake Total 0 690 Output Total 401 401 850 Balance -401 -401 -160 Weight 135.3 kg Intake: IV 0 Sodium Chloride 0.9% 1, 0 000 ml @ 50 mls/hr IV . Q20H [facility] Rx#:[id number] Oral 690 Output: Urine 400 400 850 Stool 1 1 Other: Voiding Method Indwelling Catheter Bedpan Diaper # Voids 1 1 2 ABP, PAP, CO, CI - Last Documented Arterial Blood Pressure 124/45 Pulmonary Artery Pressure 61/55 Cardiac Output 5.7 Cardiac Index 2.5 - Labs CBC & Chem 7: 11/13/22 04:20 11/13/22 04:20 Labs: Abnormal Lab Results - Last 24 Hours (Table) 11/11/22 11/13/22 11/13/22 Range/Units 18:11 17:29 19:57 POC Glucose (mg/dL) 222 H 297 H (70-110) mg/dL Crossmatch See Detail 11/13/22 Range/Units 21:02 POC Glucose (mg/dL) 260 H (70-110) mg/dL Crossmatch Assessment and Plan Plan: Assessment: 1. Acute kidney injury secondary to hemodynamic ATN as well as contrast associated acute kidney injury. No hydronephrosis noted on kidney ultrasound. Creatinine peaked at 4.73 this admission - 3.4 yesterday. Nonoliguric. 2. Chronic kidney disease stage IIIA with baseline creatinine 1.2. Suspect nephrosclerosis. 3. Cardiogenic shock status post Levophed. 4. Coronary artery disease status post LAD and left circumflex stenting this admission. 5. Severe ischemic cardiomyopathy with ejection fraction of 20-25% with moderate mitral and tricuspid regurgitation and pulmonary hypertension. 6. Diabetes mellitus. 7. Anemia. Rule out iron deficiency. Plan: Encourage oral intake. Avoid nephrotoxins. Continue to monitor renal function and urine output. Check labs today. Check iron studies.
--- NOTE | 2022-11-14 10:27 | P.PN ---
Subjective Progress Note Date: 11/14/22 On today's evaluation of 2022, the patient is calm and comfortable, history of any chest pain and she is on room and oxygen with a pulse ox 94%. She is known to have coronary artery disease and CHF. The patient underwent recent stenting of the LAD and the circumflex. During the procedure, the patient had an insertion of a Impala device for cardiac output. The patient is doing well for now. Renal function is improved compared to yesterday. She is producing urine output. There is a drop in hemoglobin at the surgical once is over the groin are dry clean and intact. She is afebrile. She is hemodynamically stable. She is tolerating her diet. Cardiac rhythm is sinus at this point in time. The patient remains on aspirin. The patient remains on Plavix. The patient remains on metoprolol 12.5 mg twice a day. She is on statins and the patient remains on Lipitor 80 mg by mouth daily. She is on Levemir insulin 30 units along with that she is taking a slight scale insulin coverage. No other significant other issues for now. On today's evaluation of 11/14/2022, the patient is doing well. No specific complaints. She is a selective overflow. She denies having any chest pain. Hemodynamically stable. Cardiac rhythm is sinus. Remains on the same indications for now. She remains on Levemir insulin 40 units daily along with that she is taking a sliding scale coverage. She is on statins. She is also on metoprolol at a dose of 12.5 mg by mouth twice a day. She is on room air oxygen. She remains on Plavix and aspirin. Objective - Vital Signs Vital signs: Vital Signs Temp 98.4 F 11/14/22 08:00 Pulse 92 11/14/22 08:00 Resp 18 11/14/22 08:00 BP 108/48 11/14/22 08:00 Pulse Ox 97 11/14/22 08:00 FiO2 35 11/09/22 04:00 Intake & Output 11/13/22 11/14/22 11/14/22 18:59 06:59 18:59 Intake Total 0 690 Output Total 401 401 850 Balance -401 -401 -160 Weight 135.3 kg Intake: IV 0 Sodium Chloride 0.9% 1, 0 000 ml @ 50 mls/hr IV . Q20H [facility] Rx#:[id number] Oral 690 Output: Urine 400 400 850 Stool 1 1 Other: Voiding Method Indwelling Catheter Bedpan External Catheter Diaper # Voids 1 1 2 ABP, PAP, CO, CI - Last Documented Arterial Blood Pressure 124/45 Pulmonary Artery Pressure 61/55 Cardiac Output 5.7 Cardiac Index 2.5 - Exam GENERAL EXAM: Alert, pleasant 77-year-old female, up in a chair, on room air, comfortable in no apparent distress. HEAD: Normocephalic and atraumatic EYES: Normal reaction of pupils, equal size. NOSE: Clear with pink turbinates. THROAT: No erythema or exudates. NECK: No masses. Positive mild JVD CHEST: No chest wall deformity. LUNGS: Equal air entry with bibasilar inspiratory crackles. CVS: S1 and S2 normal with no audible murmur, regular rhythm. No extra heart sounds ABDOMEN: Obese abdomen, no hepatosplenomegaly, active bowel sounds, no guarding or rigidity. SPINE: No scoliosis or deformity SKIN: No rashes, bilateral lower extremity chronic venous changes. CENTRAL NERVOUS SYSTEM: No focal deficits, tone is normal in all 4 extremities. EXTREMITIES: There is bilateral lower extremity 1-2+ pitting edema. Movement and sensation intact. - Labs CBC & Chem 7: 11/13/22 04:20 11/13/22 04:20 Labs: Abnormal Lab Results - Last 24 Hours (Table) 11/11/22 11/13/22 11/13/22 Range/Units 18:11 17:29 19:57 POC Glucose (mg/dL) 222 H 297 H (70-110) mg/dL Crossmatch See Detail 11/13/22 Range/Units 21:02 POC Glucose (mg/dL) 260 H (70-110) mg/dL Crossmatch Assessment and Plan Plan: Non-ST elevation myocardial infarction, status post heart catheterization on 11/05 demonstrating multivessel coronary artery disease. Status post stenting 4 on 11/08/2022 Cardiogenic shock, status post insertion of a Impella catheter on 11/05 and removed on 11/08/2022. Also, required low-dose norepinephrine. Acute hypoxemic respiratory failure, improved, currently on 35% FiO2 via Ventimask, secondary to exacerbation of systolic congestive heart failure. Most recent chest x-ray from today 11/08/2022 is consistent with congestive heart failure with cardiomegaly, pulmonary vascular congestion, and bilateral pleural effusions. Echocardiogram demonstrated a reduced ejection fraction of 20-25%, moderate mitral regurgitation, and moderate tricuspid regurgitation. CHF with ejection fraction of 25% and moderate MR Epistaxis secondary to blood thinners, improved and on Afrin nasal spray, currently inactive and stable Acute on chronic kidney disease, worsening following contrast renal function continues to improve, and the creatinine is improved compared to yesterday History of coronary artery disease with multiple previous PCI and coronary stenting with previous in-stent restenosis History of hypertension Hyperlipidemia Diabetes mellitus type 2 Chronic kidney disease stage III Morbid obesity, with a BMI of 54.6 kg/m Lifelong nonsmoker Plan: No active issues for now. The patient remains stable. The of any chest pain. Clinically stable Hemodynamically stable Creatinine continues to improve, awaiting labs from today Currently on room air Levemir doses been adjusted up to 40 units daily Improved and off norepinephrine Transfer to cardiac stepdown unit Condition remains guarded
[2022-11-14 11:37] LABS: Glucose,Whole Blood 110 mg/dL (70-110)
[2022-11-14 12:36] LABS: African American GFR (CKD) 21 (>60 ml/min/1.73 sqM); Anion Gap 10 mmol/L; Blood Urea Nitrogen 66 mg/dL (7-17); Calcium 8.2 mg/dL (8.4-10.2); Carbon Dioxide 27 mmol/L (22-30); Chloride 99 mmol/L (98-107); Glucose 86 mg/dL (74-99); Magnesium 2.6 mg/dL (1.6-2.3); Non-African American GFR(CKD) 19 (>60 ml/min/1.73 sqM); Potassium 3.7 mmol/L (3.5-5.1); Sodium 136 mmol/L (137-145)
[2022-11-14 16:47] LABS: Iron 19 UG/DL (50-170); Total Iron Binding Capacity 288 UG/DL (228-460)
[2022-11-14 16:56] LABS: Glucose,Whole Blood 241 mg/dL (70-110)
--- NOTE | 2022-11-14 17:09 | P.PN ---
Progress Note - Text Progress Note Date: 11/14/22 Hospital course. follows with Dr. Miller. Supplier Relationship Director Dr. Krause. .77 years old female with past medical history of History of coronary artery disease status post stenting, diabetes mellitus, hypertension, hyperlipidemia Patient presents because of worsening dyspnea over one week with possible elements of orthopnea. Also patient reports worsening of leg swelling. Occasional coughing. Occasional chest pain when lying down, last episode was 2 days ago currently patient denies any chest pain or discomfort and epigastric pain or neck pain. She does not look in respiratory distress when she talks easily and she does not use accessory respiratory muscles. She denies any urinary GI or neurological specific symptoms to me. She denies smoking alcohol or illicit drugs. Her PCP is Dr. Miller and her meter shop superintendent is Dr. Krause Patient is mildly tachycardic and tachypneic labs reviewed, CBC, INR within the reference range. Creatinine is elevated 1.4, and 1.3 which is at or close to baseline of 1.2-1.4. mildly elevated lactic acid came back to normal. Troponin 1.5, 2.2 Chest x-ray: Cardiomegaly with pulmonary vascular congestion and bilateral pleural effusion. Possible congestive heart failure Echocardiogram from : Ejection fraction of 35-40% with dilated left ventricle with severe LV dysfunction and 2+ mitral regurgitation 11/04: Patient seen and evaluated bedside, home medications reviewed. Started on high-dose correctional insulin as well as Lantus. Aldactone discontinued. Continue patient on IV Lasix, continue IV heparin planned for cardiac catheterization 11/05: Patient seen and evaluated bedside. Patient is status post cardiac catheterization transferred to medical ICU. Status post impela placement, patient transferred to medical ICU. Cardiology and MICU team consulted and notified about new consult. Patient evaluated alert and oriented times 3.Care plan discussed with family denies of chest pain November 06: I assumed care of the patient today. ICU. Laying in bed. No chest pain. Currently on Impella. 2 L dose cannula. Patient this afternoon is nothing by mouth. High risk for surgery, pending decision as per cardiology. For further intervention. This admission was found over in-stent stenosis of OM1. November 07: ICU. Had a severe episode of epistaxis this morning. ENT was consulted. Nasal packing. We will use nasal cannula through the polyps to keep the oxygen up. 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 Eating. Impella P-8. IV heparin November 08: ICU. Today patient changing of the cardiac farm labor contractor by Dr. Osborne. Patient did get us stent to the obtuse marginal, circumflex. 2 stents to the LAD. Postprocedure brought back to the ICU. Started on before. 0.11 g. Sinus rhythm. Laying in bed awake tired. Is on Ventimask. No further epistaxis. Since yesterday. Patient be started on IV heparin after the sheath is pulled out. November 09: ICU. Laying in bed. Feeling very tired. On levo fed. Entresto diuretics have been held. Gentle IV fluids per cardiology. Nitrates held. November 10: ICU. In bed. Continues to feel very tired. Remains on levo fed. Lopressor held this morning because of low blood pressure. On IV fluids 50 mL an hour. Eating some. Discussed. Worsening kidney function. November 11: ICU. Sitting up in a chair. Feeling tired. Decreased appetite. Remains on levo fed. Worsening renal function. 4.73. Being followed by nephrology. Patient hemoglobin is down to 8 from admission hemoglobin of 14. Patient very tired. Hypotensive cardiogenic shock. We will transfuse a unit to improve renal perfusion and blood pressure. November 12: ICU. Up in a chair. Feels a bit better. Did eat some. Patient is off levo fed. IV fluids 50 mL an hour. Creatinine has started to turn around 4.17. Making urine. Patient's and son at the bedside. Discussed. Still prognosis guarded. Patient did get a unit of blood yesterday. Hemoglobin is still around 8. Blood pressure running in the 90s. Systolic. Put for perfusion purposes blood pressure and patient is rather tired. Accu-Chek went down this morning. Insulin adjusted. Still decreased appetite November 13: ICU. Patient remains off diuretics and levo fed. Blood pressure 100. Still patient feeling tired. Patient received 6 units of blood yesterday. Hemoglobin is still below 8. Given the symptoms low blood pressure and significant loss of hemoglobin since admission to give another unit of blood. Encouraged patient for oral intake. Change insulin to 40 units Levemir in the morning. Hypoglycemia because of poor oral intake. Patient to sit up in a chair. Creatinine slowly coming down. November 14: ICU. Up in a chair. Patient walked about 15 feet with a rolling walker. Became extremely tired. Blood pressure still running in the 90s. Decreased appetite. Spoke to the nurse. We'll transfuse a second unit of blood. Correction: Patient has only received 1 unit of blood on this admission. Active Medications Acetaminophen (Acetaminophen Tab 325 Mg Tab) 650 mg PO Q4HR PRN PRN Reason: Pain Last Admin: 11/09/22 19:06 Dose: 650 mg Al Hydroxide/Mg Hydroxide (Mag Hydrox/Al Hydrox/Simeth 30 Ml Cup) 30 ml PO Q4HR PRN PRN Reason: Heartburn Last Admin: 11/10/22 21:15 Dose: 30 ml Alprazolam (Alprazolam 0.25 Mg Tab) 0.25 mg PO Q6HR PRN PRN Reason: Mild Anxiety Last Admin: 11/10/22 11:38 Dose: 0.25 mg Alprazolam (Alprazolam 0.5 Mg Tab) 0.5 mg PO Q6HR PRN PRN Reason: Moderate Anxiety Ascorbic Acid (Ascorbic Acid 500 Mg Tab) 1,000 mg PO DAILY [facility] Last Admin: 11/14/22 08:58 Dose: 1,000 mg Aspirin (Aspirin 81 Mg) 162 mg PO DAILY [facility] Last Admin: 11/14/22 08:58 Dose: 162 mg Atorvastatin Calcium (Atorvastatin 80 Mg Tab) 80 mg PO DAILY [facility] Last Admin: 11/14/22 08:58 Dose: 80 mg Atropine Sulfate (Atropine Sulfate 0.1 Mg/Ml 10ml Syringe) 0.5 mg IV ONCE PRN PRN Reason: Symptomatic Bradycardia Cholecalciferol (Cholecalciferol 25 Mcg (1000 Iu) Tablet) 25 mcg PO DAILY [facility] Last Admin: 11/14/22 08:59 Dose: 25 mcg Clopidogrel Bisulfate (Clopidogrel 75 Mg Tab) 75 mg PO DAILY [facility] Last Admin: 11/14/22 08:58 Dose: 75 mg Dextrose/Water (Dextrose 50% Syringe 50 Ml) 25 ml IVP PER PROTOCOL PRN; Protocol PRN Reason: Hypoglycemia Dextrose/Water (Dextrose 50% Syringe 50 Ml) 50 ml IVP PER PROTOCOL PRN; Protocol PRN Reason: Hypoglycemia Insulin Aspart (Insulin Aspart (Novolog) 100 Unit/Ml Vial) 0 unit SQ [facility]; Protocol Last Admin: 11/14/22 12:04 Dose: Not Given Insulin Detemir (Insulin Detemir (Levemir) 100 Unit/Ml Syr) 40 unit SQ DAILY@0700 [facility] Last Admin: 11/14/22 08:57 Dose: 40 unit Metoprolol Tartrate (Metoprolol Tartrate 12.5 Mg Tab) 12.5 mg PO BID [facility] Last Admin: 11/14/22 08:58 Dose: 12.5 mg Miscellaneous Information (Potassium Replacement Protocol 1 Each Misc) 1 each MISCELLANE DAILY PRN; Protocol PRN Reason: Per Protocol Morphine Sulfate (Morphine Sulfate 2 Mg/Ml Syringe) 2 mg IVP Q6HR PRN PRN Reason: Pain/Discomfort Last Admin: 11/10/22 17:58 Dose: 2 mg Nitroglycerin (Nitroglycerin Sl Tabs 0.4 Mg Tab) 0.4 mg SUBLINGUAL Q5M PRN PRN Reason: Chest Pain Last Admin: 11/10/22 11:38 Dose: 0.4 mg Nystatin (Nystatin 100,000 Unit/Gm Powd 15 Gm) 1 applic TOPICAL BID [facility]; Protocol Last Admin: 11/14/22 08:59 Dose: 1 applic Ondansetron HCl (Ondansetron 4 Mg/2 Ml Vial) 4 mg IVP Q8HR PRN PRN Reason: Nausea And Vomiting Last Admin: 11/08/22 08:45 Dose: 4 mg Pantoprazole Sodium (Pantoprazole 40 Mg/10 Ml Vial) 40 mg IVP DAILY [facility] Last Admin: 11/14/22 08:57 Dose: 40 mg Psyllium Hydrophilic Mucilloid (Psyllium Husk 100% 6 Gm Packet) 6 gm PO BID [facility] Last Admin: 11/14/22 08:59 Dose: 6 gm Senna (Sennosides 8.6 Mg Tab) 8.6 mg PO DAILY PRN PRN Reason: Constipation Last Admin: 11/13/22 21:30 Dose: 8.6 mg Zolpidem Tartrate (Zolpidem 5 Mg Tab) 5 mg PO HS PRN PRN Reason: Insomnia Past medical history to include: Diabetes, hypertension, hyperlipidemia, NC in 2010, CAD with stent in 2019 Social history: . No smoking or alcohol Physical examination: VITAL SIGNS: 98.2, 86, 16, 92/46, 98% room air GENERAL: , Up in a chair, awake, tired EYES: Pupils equal. Conjunctiva normal. HEENT: External appearance of nose and ears normal, oral cavity grossly normal. NECK: JVD not raised; masses not palpable. HEART: First and second heart sounds are normal; some edema. LUNGS: Respiratory rate normal; decreased breath sound. ABDOMEN: Soft, nontender, liver spleen not palpable, no masses palpable. PSYCH: Alert and oriented x3; mood and affect tired MUSCULOSKELETAL:No Clubbing/cyanosis;muscles-grossly intact. OA INVESTIGATIONS, reviewed in the clinical context: November 14: Sodium 136 potassium 3.7 BUN 66 creatinine 2.45 November 13: White count 10.70 globin 7.5 platelets 129 potassium 3.6 creatinine 3.4 blood glucose 57 November 12: White count 12.7 hemoglobin 8 platelets 118 potassium 5.2 BUN 91 creatinine 4.17 November 11: White count 15.2 hemoglobin 8 sodium 129 potassium 4.5 BUN 83 creatinine 4.73 November 10: Sodium 129 potassium 4.3 creatinine 3.9 to November 09 dose: White count 19.8 hemoglobin 9.7 platelets 128 sodium 126 potassium 4.2 BUN 55 creatinine 2.55 November 08: White count 13.6 hemoglobin 12.6 sodium 132 potassium 3.3 BUN 46 creatinine 1.47 November 07: White count 12.1 hemoglobin 11.6 platelets 105 November 06: White count 7.8 hemoglobin 11.8 platelets 131 sodium 135 potassium 4.2 BUN 44 creatinine 1.47 2-D echocardiogram [limited close bracket: EF 20%. She seemingly reduced LV function. Previous labs: Creatinine 1.22 on May 2022 Assessment and plan: -Acute non-Q-wave NC. Known CAD. Aspirin, , beta darian -November 08: 1 stent to the OM, 1 stent to circumflex, 2 stents to the LAD by Dr. Osborne. -Cardiogenic shock: Better IV levo fed.-Discontinued - known 3-vessel CAD with chronically occluded RCA, with stents -Episode of Severe epistaxis. Possibly precipitated by IV heparin and nasal cannula.: Controlled Seen by Dr. Jayson Resendiz. Nasal packing. -Acute blood loss anemia hemoglobin that dropped from 14-8. Symptomatic. Given patient's symptoms and hemoglobin will order second unit of blood -Acute on chronic congestive diastolic heart failure of systolic dysfunction, EF 20 %, ischemic cardiomyopathy: Stable for now. Impella placed-November 05-stopped Mikaela 27. Patient is off Coreg. And Entresto and Zaroxolyn Lopressor 12.5 twice a day -Diabetes mellitus type 2, chronically on insulin: Uncontrolled with hypoglycemia Change Levemir 40 mg subcu daily. follow Accu-Cheks with sliding scale -Essential hypertension-blood pressure currently low. Blood pressure and diuretics held. -Acute kidney injury, ATN likely cardiorenal: Slow to respond Creatinine was 1.2 in May 2022 Creatinine today 2.45 -Chronic kidney disease multifactorial, stage III -Morbid obesity BMI 56.2 Weight loss measures. Follow with PCP. -Full code Discussed with patient. Patient did not get any blood yesterday. Has only received 1 unit of blood. We will order the second unit of blood to be given. Hopefully discharge to rehab in next 24 hours.
[2022-11-14 20:56] LABS: Glucose,Whole Blood 158 mg/dL (70-110)
[2022-11-15] MEDS: NOREPINEPHRINE 4 MG in SODIUM CHLORIDE 0.9% 250 ML IV SCH ×2
[2022-11-15 05:39] VITALS: RESP 20
[2022-11-15] MEDS: INSULIN ASPART (NovoLOG) 100 UNIT/ML VIAL SQ SCH ×3 (06:31→17:00)
[2022-11-15] MEDS: INSULIN DETEMIR (LEVEMIR) 100 UNIT/ML SYR SQ SCH (06:33)
[2022-11-15 08:28] LABS: Basophils # (A) 0.1 k/uL (0-0.2); Basophils % (A) 1 %; Eosinophils # (A) 0.3 k/uL (0-0.7); Eosinophils % (A) 3 %; HGB 8.9 gm/dL (11.4-16.0); Lymphocytes # (A) 1.8 k/uL (1.0-4.8); Lymphocytes % (A) 16 %; MCH 31.2 pg (25.0-35.0); MCV 94.5 fL (80.0-100.0); Mean Platelet Volume 11.7; Monocytes # (A) 0.7 k/uL (0-1.0); Monocytes % (A) 7 %; Neutrophils # (A) 7.9 k/uL (1.3-7.7); Neutrophils % (A) 73 %; Platelet Count 225 k/uL (150-450); RBC 2.86 m/uL (3.80-5.40); RDW 15.2 % (11.5-15.5); WBC 10.9 k/uL (3.8-10.6)
[2022-11-15 08:36] LABS: African American GFR (CKD) 27 (>60 ml/min/1.73 sqM); Anion Gap 10 mmol/L; Blood Urea Nitrogen 67 mg/dL (7-17); Calcium 8.4 mg/dL (8.4-10.2); Carbon Dioxide 26 mmol/L (22-30); Chloride 101 mmol/L (98-107); Glucose 84 mg/dL (74-99); Magnesium 2.7 mg/dL (1.6-2.3); Non-African American GFR(CKD) 24 (>60 ml/min/1.73 sqM); Potassium 4.1 mmol/L (3.5-5.1); Sodium 137 mmol/L (137-145)
[2022-11-15] MEDS ORDERED: ASPIRIN 81 MG PO SCH (09:00)
[2022-11-15] MEDS: CLOPIDOGREL 75 MG TAB PO SCH (09:49)
[2022-11-15] MEDS: PANTOPRAZOLE 40 MG/10 ML VIAL IVP SCH (09:49)
[2022-11-15] MEDS: METOPROLOL TARTRATE 12.5 MG TAB PO SCH (09:49)
[2022-11-15] MEDS: ATORVASTATIN 80 MG TAB PO SCH (09:49)
[2022-11-15] MEDS: ASCORBIC ACID 500 MG TAB PO SCH (09:49)
[2022-11-15] MEDS: CHOLECALCIFEROL 25 MCG (1000 IU) TABLET PO SCH (09:49)
[2022-11-15] MEDS: NYSTATIN 100,000 UNIT/GM POWD 15 GM TOPICAL SCH (09:50)
[2022-11-15] MEDS: PSYLLIUM HUSK 100% 6 GM PACKET PO SCH (09:50)
--- NOTE | 2022-11-15 10:39 | P.PN ---
Subjective Patient is seen in follow-up for acute kidney injury on chronic kidney disease. Renal function improving. Off IV fluids. No chest pain or shortness of breath. Nonoliguric. Has external catheter. Oral intake is good. Vital signs are stable. General: No acute distress. HEENT: Head exam is unremarkable. LUNGS: No audible rhonchi or wheezes. HEART: Rate and Rhythm are regular. ABDOMEN: Nontender. Extremities: 1+ edema. Objective - Vital Signs Vital signs: Vital Signs Temp 98.1 F 11/15/22 08:00 Pulse 83 11/15/22 08:00 Resp 20 11/15/22 08:00 BP 89/53 11/15/22 08:00 Pulse Ox 96 11/15/22 08:00 FiO2 35 11/09/22 04:00 Intake & Output 11/14/22 11/15/22 11/15/22 18:59 06:59 18:59 Intake Total 930 285 220 Output Total 850 650 Balance 80 -365 220 Weight 131.3 kg Intake: Oral 930 220 Blood Product 0 285 Rc Pheresis 2 As3 Unit 0 285 [id number] Output: Urine 850 650 Other: Voiding Method External Catheter External Catheter # Voids 2 # Bowel Movements 1 1 ABP, PAP, CO, CI - Last Documented Arterial Blood Pressure 124/45 Pulmonary Artery Pressure 61/55 Cardiac Output 5.7 Cardiac Index 2.5 - Labs CBC & Chem 7: 11/15/22 06:56 11/15/22 06:56 Labs: Abnormal Lab Results - Last 24 Hours (Table) 11/11/22 11/14/22 11/14/22 Range/Units 18:11 12:03 16:54 WBC (3.8-10.6) k/uL RBC (3.80-5.40) m/uL Hgb (11.4-16.0) gm/dL Hct (34.0-46.0) % Neutrophils # (1.3-7.7) k/uL Sodium 136 L (137-145) mmol/L BUN 66 H (7-17) mg/dL Creatinine 2.45 H (0.52-1.04) mg/dL POC Glucose (mg/dL) 241 H (70-110) mg/dL Calcium 8.2 L (8.4-10.2) mg/dL Magnesium 2.6 H (1.6-2.3) mg/dL Iron 19 L (50-170) UG/DL % Saturation 6.60 L (12.00-45.00) Crossmatch See Detail 11/14/22 11/15/22 11/15/22 Range/Units 20:54 06:56 06:56 WBC 10.9 H (3.8-10.6) k/uL RBC 2.86 L (3.80-5.40) m/uL Hgb 8.9 L (11.4-16.0) gm/dL Hct 27.0 L (34.0-46.0) % Neutrophils # 7.9 H (1.3-7.7) k/uL Sodium (137-145) mmol/L BUN 67 H (7-17) mg/dL Creatinine 2.02 H (0.52-1.04) mg/dL POC Glucose (mg/dL) 158 H (70-110) mg/dL Calcium (8.4-10.2) mg/dL Magnesium 2.7 H (1.6-2.3) mg/dL Iron (50-170) UG/DL % Saturation (12.00-45.00) Crossmatch Assessment and Plan Plan: Assessment: 1. Acute kidney injury secondary to hemodynamic ATN as well as contrast associated acute kidney injury. No hydronephrosis noted on kidney ultrasound. Creatinine peaked at 4.73 this admission -2.02 today. Nonoliguric. 2. Chronic kidney disease stage IIIA with baseline creatinine 1.2. Suspect nephrosclerosis. 3. Cardiogenic shock status post Levophed. 4. Coronary artery disease status post LAD and left circumflex stenting this admission. 5. Severe ischemic cardiomyopathy with ejection fraction of 20-25% with moderate mitral and tricuspid regurgitation and pulmonary hypertension. 6. Diabetes mellitus. 7. Anemia. Iron deficiency noted. Plan: Resume Lasix 40 mg once daily. Encourage oral intake. Avoid nephrotoxins. Continue to monitor renal function and urine output. Add IV iron.
[2022-11-15] MEDS ORDERED: FUROSEMIDE 40 MG TAB PO SCH (10:45)
[2022-11-15] MEDS ORDERED: SODIUM FERRIC GLUCONAT-SUCROSE 125 MG in SODIUM CHLORIDE 0.9% 100 ML IVPB SCH (11:00)
[2022-11-15 11:28] LABS: Glucose,Whole Blood 272 mg/dL (70-110)
--- NOTE | 2022-11-15 11:33 | P.PN ---
Subjective HISTORY OF PRESENT ILLNESS: 11/04/2022 This is 77 year old female who was admitted to the hospital secondary to acute CHF and non-STEMI. Patient examined this morning. She is sitting up in the chair. She currently denies chest pain or pressure. She reports improvement in her shortness of breath. She continues to have lower extremity edema although improving. She remains on IV Lasix. Patient also remains on IV heparin. Echocardiogram completed revealing ejection fraction 20-25%, global left ventricular hypokinesis, moderate MR, and moderate TR. Patient is very tearful this morning and states she is afraid to undergo cardiac catheterization. 11/15/2022 Patient examined this morning. Patient is sitting up in the chair. Patient denies chest pain or pressure. Denies SOB. Patient has a small round wound to right femoral site secondary to cardiac cath access site. PHYSICAL EXAM: VITAL SIGNS: Reviewed. GENERAL: Well-developed in no acute distress. NECK: Supple. No JVD or thyromegaly LUNGS: Respirations even and unlabored. Lungs essentially clear to auscultation bilaterally. HEART: Regular rate and rhythm. S1 and S2 heard. Systolic murmur noted. EXTREMITIES: Normal range of motion. No clubbing or cyanosis. Peripheral pulses intact. 1+ bilateral lower extremity edema with chronic skin discoloration noted. ASSESSMENT: Acute on chronic heart failure with reduced EF, 20-25% Non-STEMI, status post stenting of the LAD and left circumflex Ischemic cardiomyopathy Valvular heart disease including moderate MR and moderate TR Coronary artery disease with previous PCI Hypertension Hyperlipidemia Morbid obesity: BMI 54.2 Chronic kidney disease PLAN: Continue current cardiac medications Patient instructed to shower daily and keep right groin cath site clean and dry to prevent infection Patient may benefit from CHRISTIAN/ARB when kidney function improves Patient is stable for discharge today from a cardiac standpoint Nurse practitioner note has been reviewed by physician. Signing provider agrees with the documented findings, assessment, and plan of care. Objective - Vital Signs Vital signs: Vital Signs Temp 98.1 F 11/15/22 08:00 Pulse 83 11/15/22 08:00 Resp 20 11/15/22 08:00 BP 89/53 11/15/22 08:00 Pulse Ox 96 11/15/22 08:00 FiO2 35 11/09/22 04:00 Intake & Output 11/14/22 11/15/22 11/15/22 18:59 06:59 18:59 Intake Total 930 285 220 Output Total 850 650 Balance 80 -365 220 Weight 131.3 kg Intake: Oral 930 220 Blood Product 0 285 Rc Pheresis 2 As3 Unit 0 285 [id number] Output: Urine 850 650 Other: Voiding Method External Catheter External Catheter External Catheter # Voids 2 # Bowel Movements 1 1 ABP, PAP, CO, CI - Last Documented Arterial Blood Pressure 124/45 Pulmonary Artery Pressure 61/55 Cardiac Output 5.7 Cardiac Index 2.5 - Labs CBC & Chem 7: 11/15/22 06:56 11/15/22 06:56 Labs: Abnormal Lab Results - Last 24 Hours (Table) 11/11/22 11/14/22 11/14/22 Range/Units 18:11 12:03 16:54 WBC (3.8-10.6) k/uL RBC (3.80-5.40) m/uL Hgb (11.4-16.0) gm/dL Hct (34.0-46.0) % Neutrophils # (1.3-7.7) k/uL Sodium 136 L (137-145) mmol/L BUN 66 H (7-17) mg/dL Creatinine 2.45 H (0.52-1.04) mg/dL POC Glucose (mg/dL) 241 H (70-110) mg/dL Calcium 8.2 L (8.4-10.2) mg/dL Magnesium 2.6 H (1.6-2.3) mg/dL Iron 19 L (50-170) UG/DL % Saturation 6.60 L (12.00-45.00) Crossmatch See Detail 11/14/22 11/15/22 11/15/22 Range/Units 20:54 06:56 06:56 WBC 10.9 H (3.8-10.6) k/uL RBC 2.86 L (3.80-5.40) m/uL Hgb 8.9 L (11.4-16.0) gm/dL Hct 27.0 L (34.0-46.0) % Neutrophils # 7.9 H (1.3-7.7) k/uL Sodium (137-145) mmol/L BUN 67 H (7-17) mg/dL Creatinine 2.02 H (0.52-1.04) mg/dL POC Glucose (mg/dL) 158 H (70-110) mg/dL Calcium (8.4-10.2) mg/dL Magnesium 2.7 H (1.6-2.3) mg/dL Iron (50-170) UG/DL % Saturation (12.00-45.00) Crossmatch
--- NOTE | 2022-11-15 13:18 | P.DS ---
Providers Date of admission: 11/02/22 19:56 Expected date of discharge: 11/15/22 Attending physician: Dylan Moffett Consults: 11/02/22 19:54 Consult Physician Urgent Consulting Provider: Chan Guan Consult Reason/Comments: CHF exacerbation. NSTEMI Do you want consulting provider notified?: Yes 11/05/22 13:47 Consult Physician Routine Consulting Provider: Brian Sorensen Consult Reason/Comments: Cardiogenic shock with Impela on pressor support Do you want consulting provider notified?: Yes 11/05/22 14:49 Consult Physician Routine Consulting Provider: Bjorn Hunt Consult Reason/Comments: re: CABG eval Do you want consulting provider notified?: Yes, Notify in am 11/07/22 10:37 Consult Physician Urgent Consulting Provider: Jayson Resendiz Consult Reason/Comments: continuous bloody nose Do you want consulting provider notified?: Yes 11/08/22 22:42 Consult Physician Routine Consulting Provider: [facility] Consult Reason/Comments: Post Interventional Patient Do you want consulting provider notified?: Already Contacted 11/10/22 07:50 Consult Physician Routine Consulting Provider: Honey Mahmood Consult Reason/Comments: ADE Do you want consulting provider notified?: Yes Primary care physician: Swapnil Miller [facility] Course: Hospital course. follows with Dr. Miller. Social Insurance Analyst Dr. Krause. .77 years old female with past medical history of History of coronary artery disease status post stenting, diabetes mellitus, hypertension, hyperlipidemia Patient presents because of worsening dyspnea over one week with possible elements of orthopnea. Also patient reports worsening of leg swelling. Occasional coughing. Occasional chest pain when lying down, last episode was 2 days ago currently patient denies any chest pain or discomfort and epigastric pain or neck pain. She does not look in respiratory distress when she talks easily and she does not use accessory respiratory muscles. She denies any urinary GI or neurological specific symptoms to me. She denies smoking alcohol or illicit drugs. Her PCP is Dr. Miller and her weather analyst is Dr. Krause Patient is mildly tachycardic and tachypneic labs reviewed, CBC, INR within the reference range. Creatinine is elevated 1.4, and 1.3 which is at or close to baseline of 1.2-1.4. mildly elevated lactic acid came back to normal. Troponin 1.5, 2.2 Chest x-ray: Cardiomegaly with pulmonary vascular congestion and bilateral pleural effusion. Possible congestive heart failure Echocardiogram from : Ejection fraction of 35-40% with dilated left ventricle with severe LV dysfunction and 2+ mitral regurgitation 11/04: Patient seen and evaluated bedside, home medications reviewed. Started on high-dose correctional insulin as well as Lantus. Aldactone discontinued. Continue patient on IV Lasix, continue IV heparin planned for cardiac catheterization 11/05: Patient seen and evaluated bedside. Patient is status post cardiac catheterization transferred to medical ICU. Status post impela placement, patient transferred to medical ICU. Cardiology and MICU team consulted and notified about new consult. Patient evaluated alert and oriented times 3.Care plan discussed with family denies of chest pain November 06: I assumed care of the patient today. ICU. Laying in bed. No chest pain. Currently on Impella. 2 L dose cannula. Patient this afternoon is nothing by mouth. High risk for surgery, pending decision as per cardiology. For further intervention. This admission was found over in-stent stenosis of OM1. November 07: ICU. Had a severe episode of epistaxis this morning. ENT was consulted. Nasal packing. We will use nasal cannula through the polyps to keep the oxygen up. 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 Eating. Impella P-8. IV heparin November 08: ICU. Today patient changing of the cardiac laborer drying department by Dr. Osborne. Patient did get us stent to the obtuse marginal, circumflex. 2 stents to the LAD. Postprocedure brought back to the ICU. Started on before. 0.11 g. Sinus rhythm. Laying in bed awake tired. Is on Ventimask. No further epistaxis. Since yesterday. Patient be started on IV heparin after the sheath is pulled out. November 09: ICU. Laying in bed. Feeling very tired. On levo fed. Entresto diuretics have been held. Gentle IV fluids per cardiology. Nitrates held. November 10: ICU. In bed. Continues to feel very tired. Remains on levo fed. Lopressor held this morning because of low blood pressure. On IV fluids 50 mL an hour. Eating some. Discussed. Worsening kidney function. November 11: ICU. Sitting up in a chair. Feeling tired. Decreased appetite. Remains on levo fed. Worsening renal function. 4.73. Being followed by nephrology. Patient hemoglobin is down to 8 from admission hemoglobin of 14. Patient very tired. Hypotensive cardiogenic shock. We will transfuse a unit to improve renal perfusion and blood pressure. November 12: ICU. Up in a chair. Feels a bit better. Did eat some. Patient is off levo fed. IV fluids 50 mL an hour. Creatinine has started to turn around 4.17. Making urine. Patient's and son at the bedside. Discussed. Still prognosis guarded. Patient did get a unit of blood yesterday. Hemoglobin is still around 8. Blood pressure running in the 90s. Systolic. Put for perfusion purposes blood pressure and patient is rather tired. Accu-Chek went down this morning. Insulin adjusted. Still decreased appetite November 13: ICU. Patient remains off diuretics and levo fed. Blood pressure 100. Still patient feeling tired. Patient received 6 units of blood yesterday. Hemoglobin is still below 8. Given the symptoms low blood pressure and significant loss of hemoglobin since admission to give another unit of blood. Encouraged patient for oral intake. Change insulin to 40 units Levemir in the morning. Hypoglycemia because of poor oral intake. Patient to sit up in a chair. Creatinine slowly coming down. November 14: ICU. Up in a chair. Patient walked about 15 feet with a rolling walker. Became extremely tired. Blood pressure still running in the 90s. Decreased appetite. Spoke to the nurse. We'll transfuse a second unit of blood. Correction: Patient has only received 1 unit of blood on this admission. November 15: Medical floor. Up in a chair. Receive second unit of blood last night. Feeling better.insulin adjusted. Will discharge to [facility] today. We'll follow-up with nephrology,cardiology. Discussion and discharge planning more than 35 minutes Past medical history to include: Diabetes, hypertension, hyperlipidemia, [place] in 2010, CAD with stent in 2019 Social history: . No smoking or alcohol Physical examination: VITAL SIGNS: 97.7, 81, 20, 106/66, 97% room air GENERAL: , Up in a chair, awake, EYES: Pupils equal. Conjunctiva normal. HEENT: External appearance of nose and ears normal, oral cavity grossly normal. NECK: JVD not raised; masses not palpable. HEART: First and second heart sounds are normal; some edema. LUNGS: Respiratory rate normal; decreased breath sound. ABDOMEN: Soft, nontender, liver spleen not palpable, no masses palpable. PSYCH: Alert and oriented x3; mood and affect tired MUSCULOSKELETAL:No Clubbing/cyanosis;muscles-grossly intact. OA INVESTIGATIONS, reviewed in the clinical context: November 15: White count 10.9 hemoglobin 8.9 potassium 4.1 creatinine 2.02 November 11: White count 15.2 hemoglobin 8 sodium 129 potassium 4.5 BUN 83 creatinine 4.73 November 06: White count 7.8 hemoglobin 11.8 platelets 131 sodium 135 potassium 4.2 BUN 44 creatinine 1.47 2-D echocardiogram [limited close bracket: EF 20%. She seemingly reduced LV function. Previous labs: Creatinine 1.22 on May 2022 Assessment and plan: -Acute non-Q-wave [place]. Known CAD. Aspirin, , beta darian -November 08: 1 stent to the OM, 1 stent to circumflex, 2 stents to the LAD by Dr. Osborne. -Cardiogenic shock: Better IV levo fed.-Discontinued - known 3-vessel CAD with chronically occluded RCA, with stents -Episode of Severe epistaxis. Possibly precipitated by IV heparin and nasal cannula.: Controlled Seen by Dr. Jayson Resendiz. Nasal packing. -Acute blood loss anemia hemoglobin that dropped from 14-8. Symptomatic. received 2 units of blood -Acute on chronic congestive diastolic heart failure of systolic dysfunction, EF 20 %, ischemic cardiomyopathy: Stable for now. Impella placed-November 05-stopped November 08. Patient is off Coreg. And Entresto and Zaroxolyn Lopressor 12.5 twice a day Lasix 40 mg a day -Diabetes mellitus type 2, chronically on insulin: Uncontrolled with hypoglycemia Humalog mix 70/25/ - 30 units subcu before breakfast and supper. 10 unit subcu before meals lunch -Essential hypertension-blood pressure currently low. Blood pressure and diuretics held. -Acute kidney injury, ATN likely cardiorenal: Slow to respond Creatinine was 1.2 in May 2022 Creatinine today 2.45 -Chronic kidney disease multifactorial, stage III -Morbid obesity BMI 56.2 Weight loss measures. Follow with PCP. -Full code disposition: [facility] rehab CBC BMP magnesium: 3 days Plan - Discharge Summary New Discharge Prescriptions: New Aspirin 81 mg PO DAILY tab Nystatin 100,000 Unit/gm Powd [Mycostatin Powder] 1 applic TOPICAL BID each Acetaminophen Tab [Tylenol] 650 mg PO Q4HR PRN tab PRN Reason: Pain Metoprolol Tartrate [Lopressor] 12.5 mg PO BID tab Psyllium Husk 100% [Metamucil Packet] 6 gm PO BID packet Insulin Lispro Protamin/Lispro [humaLOG MIX 75-25 Kwikpen] 10 unit SQ AC- LUNCH #1 each Continue Clopidogrel Bisulfate [Plavix] 75 mg PO DAILY Nitroglycerin Sl Tabs [Nitrostat] 0.4 mg SUBLINGUAL Q5M PRN #25 tab PRN Reason: Chest Pain Ascorbic Acid [Vitamin C] 1,000 mg PO DAILY Furosemide [Lasix] 40 mg PO DAILY Magnesium Oxide [Magnesium] 500 mg PO DAILY Ergocalciferol [Vitamin D2 (1250 Mcg = 10615 Iu)] 1,250 mcg PO MO Vitamin B Complex 1 cap PO DAILY Cholecalciferol [Vitamin D3 (25 Mcg = 1000 Iu)] 25 mcg PO DAILY Changed Atorvastatin [Lipitor] 80 mg PO HS #30 tab Insulin Lispro Protamin/Lispro [humaLOG MIX 75-25 Kwikpen] 30 unit SQ AC-BID #0 Discontinued Sacubitril/Valsartan [Entresto 24 mg-26 mg Tablet] 1 tab PO DAILY carvediloL [Coreg] 3.125 mg PO DIRECTED Spironolactone [Aldactone] 12.5 mg PO DAILY #45 tablet Isosorbide Mononitrate ER [Imdur] 60 mg PO DAILY Discharge Medication List Clopidogrel Bisulfate [Plavix] 75 mg PO DAILY 06/20/18 [History] Nitroglycerin Sl Tabs [Nitrostat] 0.4 mg SUBLINGUAL Q5M PRN #25 tab 06/22/18 [Rx] Ascorbic Acid [Vitamin C] 1,000 mg PO DAILY 03/22/22 [History] Ergocalciferol [Vitamin D2 (1250 Mcg = 93302 Iu)] 1,250 mcg PO MO 03/22/22 [History] Magnesium Oxide [Magnesium] 500 mg PO DAILY 03/22/22 [History] Cholecalciferol [Vitamin D3 (25 Mcg = 1000 Iu)] 25 mcg PO DAILY 11/02/22 [History] Furosemide [Lasix] 40 mg PO DAILY 11/02/22 [History] Vitamin B Complex 1 cap PO DAILY 11/02/22 [History] Acetaminophen Tab [Tylenol] 650 mg PO Q4HR PRN tab 11/15/22 [Rx] Aspirin 81 mg PO DAILY tab 11/15/22 [Rx] Atorvastatin [Lipitor] 80 mg PO HS #30 tab 11/15/22 [Rx] Insulin Lispro Protamin/Lispro [humaLOG MIX 75-25 Kwikpen] 10 unit SQ AC-LUNCH #1 each 11/15/22 [Rx] Insulin Lispro Protamin/Lispro [humaLOG MIX 75-25 Kwikpen] 30 unit SQ AC-BID #0 11/15/22 [Rx] Metoprolol Tartrate [Lopressor] 12.5 mg PO BID tab 11/15/22 [Rx] Nystatin 100,000 Unit/gm Powd [Mycostatin Powder] 1 applic TOPICAL BID each 11/15/22 [Rx] Psyllium Husk 100% [Metamucil Packet] 6 gm PO BID packet 11/15/22 [Rx] Follow up Appointment(s)/Referral(s): Honey Mahmood MD [STAFF PHYSICIAN] - 2 Weeks Swapnil iMller MD [Primary Care Provider] - 1-2 days Angel Krause MD [STAFF PHYSICIAN] - 1 Week
[2022-11-15 13:45] VITALS: BMI 52.9
--- NOTE | 2022-11-15 16:14 | P.PN ---
Subjective Progress Note Date: 11/15/22 On today's evaluation of 2022, the patient is calm and comfortable, history of any chest pain and she is on room and oxygen with a pulse ox 94%. She is known to have coronary artery disease and CHF. The patient underwent recent stenting of the LAD and the circumflex. During the procedure, the patient had an insertion of a Impala device for cardiac output. The patient is doing well for now. Renal function is improved compared to yesterday. She is producing urine output. There is a drop in hemoglobin at the surgical once is over the groin are dry clean and intact. She is afebrile. She is hemodynamically stable. She is tolerating her diet. Cardiac rhythm is sinus at this point in time. The patient remains on aspirin. The patient remains on Plavix. The patient remains on metoprolol 12.5 mg twice a day. She is on statins and the patient remains on Lipitor 80 mg by mouth daily. She is on Levemir insulin 30 units along with that she is taking a slight scale insulin coverage. No other significant other issues for now. On today's evaluation of 11/14/2022, the patient is doing well. No specific complaints. She is a selective overflow. She denies having any chest pain. Hemodynamically stable. Cardiac rhythm is sinus. Remains on the same indications for now. She remains on Levemir insulin 40 units daily along with that she is taking a sliding scale coverage. She is on statins. She is also on metoprolol at a dose of 12.5 mg by mouth twice a day. She is on room air oxygen. She remains on Plavix and aspirin. On today's evaluation of 11/15/2022, the patient is being seen for a follow-up. No specific complaints. She continues to have some mild exertional dyspnea and she continues to have some edema lower extremities bilaterally. The patient is going to [facility] today. Noted the patient is currently on Lasix 40 mg by mouth daily. She is also on metoprolol 12.5 mg twice a day and she is also on accommodation of aspirin and Plavix. As mentioned, the patient is anemic and the patient was started on oral iron. Hemoglobin is at 8.9. At the same time, there is improvement in the renal function the creatinine is down to 2.0 to with a BUN of 67. The rest of the electrolytes are all within normal limits. She remains on Levemir insulin 40 units and a sliding scale coverage. She is on high-dose statins. She is not requiring oxygen and the patient is currently on room air oxygen with a pulse ox of 97%. Objective - Vital Signs Vital signs: Vital Signs Temp 98.1 F 11/15/22 08:00 Pulse 83 11/15/22 08:00 Resp 20 11/15/22 08:00 BP 89/53 11/15/22 08:00 Pulse Ox 96 11/15/22 08:00 FiO2 35 11/09/22 04:00 Intake & Output 11/14/22 11/15/22 11/15/22 18:59 06:59 18:59 Intake Total 930 285 220 Output Total 850 650 Balance 80 -365 220 Weight 131.3 kg Intake: Oral 930 220 Blood Product 0 285 Rc Pheresis 2 As3 Unit 0 285 [id number] Output: Urine 850 650 Other: Voiding Method External Catheter External Catheter # Voids 2 # Bowel Movements 1 1 ABP, PAP, CO, CI - Last Documented Arterial Blood Pressure 124/45 Pulmonary Artery Pressure 61/55 Cardiac Output 5.7 Cardiac Index 2.5 - Exam GENERAL EXAM: Alert, pleasant 77-year-old female, up in a chair, on room air, comfortable in no apparent distress. The patient is currently on room air oxygen with a pulse ox of 97% HEAD: Normocephalic and atraumatic EYES: Normal reaction of pupils, equal size. NOSE: Clear with pink turbinates. THROAT: No erythema or exudates. NECK: No masses. Positive mild JVD CHEST: No chest wall deformity. LUNGS: Equal air entry with bibasilar inspiratory crackles. CVS: S1 and S2 normal with no audible murmur, regular rhythm. No extra heart sounds ABDOMEN: Obese abdomen, no hepatosplenomegaly, active bowel sounds, no guarding or rigidity. SPINE: No scoliosis or deformity SKIN: No rashes, bilateral lower extremity chronic venous changes. CENTRAL NERVOUS SYSTEM: No focal deficits, tone is normal in all 4 extremities. EXTREMITIES: There is bilateral lower extremity 1 pitting edema. Movement and sensation intact. - Labs CBC & Chem 7: 11/15/22 06:56 11/15/22 06:56 Labs: Abnormal Lab Results - Last 24 Hours (Table) 11/11/22 11/14/22 11/14/22 Range/Units 18:11 12:03 16:54 WBC (3.8-10.6) k/uL RBC (3.80-5.40) m/uL Hgb (11.4-16.0) gm/dL Hct (34.0-46.0) % Neutrophils # (1.3-7.7) k/uL Sodium 136 L (137-145) mmol/L BUN 66 H (7-17) mg/dL Creatinine 2.45 H (0.52-1.04) mg/dL POC Glucose (mg/dL) 241 H (70-110) mg/dL Calcium 8.2 L (8.4-10.2) mg/dL Magnesium 2.6 H (1.6-2.3) mg/dL Iron 19 L (50-170) UG/DL % Saturation 6.60 L (12.00-45.00) Crossmatch See Detail 11/14/22 11/15/22 11/15/22 Range/Units 20:54 06:56 06:56 WBC 10.9 H (3.8-10.6) k/uL RBC 2.86 L (3.80-5.40) m/uL Hgb 8.9 L (11.4-16.0) gm/dL Hct 27.0 L (34.0-46.0) % Neutrophils # 7.9 H (1.3-7.7) k/uL Sodium (137-145) mmol/L BUN 67 H (7-17) mg/dL Creatinine 2.02 H (0.52-1.04) mg/dL POC Glucose (mg/dL) 158 H (70-110) mg/dL Calcium (8.4-10.2) mg/dL Magnesium 2.7 H (1.6-2.3) mg/dL Iron (50-170) UG/DL % Saturation (12.00-45.00) Crossmatch Assessment and Plan Plan: Non-ST elevation myocardial infarction, status post heart catheterization on 11/05 demonstrating multivessel coronary artery disease. Status post stenting 4 on 11/08/2022, currently free of any chest pain and hemodynamically stable Cardiogenic shock, status post insertion of a Impella catheter on 11/05 and removed on 11/08/2022. Also, required low-dose norepinephrine. Currently hemodynamically stable and the patient is normotensive Acute hypoxemic respiratory failure, improved, currently on 35% FiO2 via Ventimask, secondary to exacerbation of systolic congestive heart failure. Most recent chest x-ray from today 11/08/2022 is consistent with congestive heart failure with cardiomegaly, pulmonary vascular congestion, and bilateral pleural effusions. Echocardiogram demonstrated a reduced ejection fraction of 20-25%, moderate mitral regurgitation, and moderate tricuspid regurgitation. The patient is currently on room air oxygen and she has recovered from her acute hypoxic respiratory failure CHF with ejection fraction of 25% and moderate MR Epistaxis secondary to blood thinners, improved and on Afrin nasal spray, currently inactive and stable Acute on chronic kidney disease, worsening following contrast renal function continues to improve, and the creatinine continues to improve is down to 2.0 to History of coronary artery disease with multiple previous PCI and coronary stenting with previous in-stent restenosis History of hypertension Hyperlipidemia Diabetes mellitus type 2, currently on Levemir Chronic kidney disease stage III Morbid obesity, with a BMI of 54.6 kg/m Lifelong nonsmoker Anemia, likely anemia of chronic disease, hemoglobin is stable for now and the patient was started on oral iron. Plan: Overall pulmonary status is stable No active issues for now. The patient remains stable. The patient's the of any chest pain Clinically stable Hemodynamically stable Creatinine continues to improve Improvement in the lower extremity edema The patient is currently on Lasix 40 mg by mouth daily Continue aspirin and Plavix Currently on room air Levemir insulin for blood sugar control Patient is being released / discharged to [facility] for further rehabilitation.
[2022-11-15 16:16] LABS: Glucose,Whole Blood 286 mg/dL (70-110)
[2022-11-15 16:38] VITALS: BP 116/79; PULSE 77; TEMP 98.3
[2022-11-15 16:38] LABS: Glucose,Whole Blood 131 mg/dL (70-110)
--- NOTE | 2022-11-16 12:45 | CDI ---
Documentation Clarification Form Date: 11/16/2022 12:27:51 PM From: Bárbara Gaona Phone: Admit Date: 11/02/2022 07:56:00 PM Patient Name: Drea Sosa Visit Number: [id number] Discharge Date: 11/15/2022 06:11:00 PM ATTENTION: The Clinical Documentation Specialists (CDI) and [facility] Coding Staff appreciate your assistance in clarifying documentation. Please respond to the clarification below the line at the bottom and electronically sign. The CDI & [facility] Coding staff will review the response and follow-up if needed. Please note: Queries are made part of the Legal Health Record. If you have any questions, please contact the author of this message via ITS. Dr. Dylan Moffett Your patient has the documented diagnosis of: Acute and chronicdilatedsystolic CHF, [id number]% per H&P and multiple Progress Notes. Acute on chronic congestivediastolic heart failure of systolic dysfunction, EF 20 % per your Progress Note 11/06 Additional clarification regarding the type CHF is requested. History/Risk Factors: 77yo F, acute NSTEMI, AC CHF, DMII w CKD3a & hyperglycemia, MR, TR, CAD w in-stent stenosis, HTN, HLD, OA, hypothyroidism, morbid obesity Clinical Indicators: VS/Pulse OX: 11/06 94 11/03 91-100 BNP: 11944 Echocardiogram Results: 11/03 LVEF is estimated at 20-25 %. Moderately increased LV thickness. ModerateMR, TR. Nopericardial effusion Echocardiogram Results: 11/05 Global decrease in contractility EF less than 20% withImpella in good position. Nopericardial effusion Chest X Ray: 11/02 Cardiomegaly, pulmonary vascularcongestionandbilateral pleural effusions. Correlate with BNP forCHF. Treatment: Impellaplaced-November 05. Coreg. Entresto. Zaroxolyn. IV Lasix 80 mg every 8. In your professional opinion, can you please clarify the type of CHF? [ + ] Acute on Chronic Systolic Heart Failure (reduced EF) [ ] Acute on Chronic Heart Failure Systolic & Diastolic Heart Failure [ ] Other, please specify [ ] Unable to determine (Template Last Revised: March 2020) MTDD
== END 2022-11-15 18:11 | disposition short-term general hospital (02) | DRG 215 ==
LOC: EC 16:19 → 3SCARD 19:56 → 2SICU 11-05 13:09 → 3SCARD 11-14 23:29
PROVIDERS: ADMIT Hospitalist; ATTEND Hospitalist
PROC: 3E043XZ Introduction of Vasopressor into Central Vein, Percutaneous Approach (ICD-10-PCS; 2022-11-05)
PROC: 4A023N7 Measurement of Cardiac Sampling and Pressure, Left Heart, Percutaneous Approach (ICD-10-PCS; 2022-11-05)
PROC: B2111ZZ Fluoroscopy of Multiple Coronary Arteries using Low Osmolar Contrast (ICD-10-PCS; 2022-11-05)
PROC: 4A023N6 Measurement of Cardiac Sampling and Pressure, Right Heart, Percutaneous Approach (ICD-10-PCS; 2022-11-05)
PROC: B2111ZZ Fluoroscopy of Multiple Coronary Arteries using Low Osmolar Contrast (ICD-10-PCS; 2022-11-05)
PROC: 02HA3RZ Insertion of Short-term External Heart Assist System into Heart, Percutaneous Approach (ICD-10-PCS; principal; 2022-11-05 11:00)
PROC: 5A0221D Assistance with Cardiac Output using Impeller Pump, Continuous (ICD-10-PCS; 2022-11-05 11:00)
PROC: 2Y41X5Z Packing of Nasal Region using Packing Material (ICD-10-PCS; 2022-11-07)
PROC: 027337Z Dilation of Coronary Artery, Four or More Arteries with Four or More Drug-eluting Intraluminal Devices, Percutaneous Approach (ICD-10-PCS; 2022-11-08 13:30)
PROC: 04CK3ZZ Extirpation of Matter from Right Femoral Artery, Percutaneous Approach (ICD-10-PCS; 2022-11-08 13:30)
PROC: 047K3ZZ Dilation of Right Femoral Artery, Percutaneous Approach (ICD-10-PCS; 2022-11-08 13:30)
PROC: 02PA3RZ Removal of Short-term External Heart Assist System from Heart, Percutaneous Approach (ICD-10-PCS; 2022-11-08 13:30)
PROC: 30233N1 Transfusion of Nonautologous Red Blood Cells into Peripheral Vein, Percutaneous Approach (ICD-10-PCS; 2022-11-12)
DX: T82.855A Stenosis of coronary artery stent, initial encounter (principal); J96.01 Acute respiratory failure with hypoxia; N17.0 Acute kidney failure with tubular necrosis; R57.0 Cardiogenic shock; I21.4 Non-ST elevation (NSTEMI) myocardial infarction; I50.23 Acute on chronic systolic (congestive) heart failure; I74.3 Embolism and thrombosis of arteries of the lower extremities; I13.0 Hypertensive heart and chronic kidney disease with heart failure and stage 1 through stage 4 chronic kidney disease, or unspecified chronic kidney disease; D62 Acute posthemorrhagic anemia; Z68.43 Body mass index [BMI] 50.0-59.9, adult; E87.1 Hypo-osmolality and hyponatremia; T82.868A Thrombosis due to vascular prosthetic devices, implants and grafts, initial encounter; E11.649 Type 2 diabetes mellitus with hypoglycemia without coma; I27.22 Pulmonary hypertension due to left heart disease; E66.01 Morbid (severe) obesity due to excess calories; E11.65 Type 2 diabetes mellitus with hyperglycemia; N18.31 Chronic kidney disease, stage 3a; I25.119 Atherosclerotic heart disease of native coronary artery with unspecified angina pectoris; Z79.4 Long term (current) use of insulin; I08.1 Rheumatic disorders of both mitral and tricuspid valves; E03.9 Hypothyroidism, unspecified; M19.90 Unspecified osteoarthritis, unspecified site; I25.5 Ischemic cardiomyopathy; R04.0 Epistaxis; E78.00 Pure hypercholesterolemia, unspecified; N14.11 Contrast-induced nephropathy; T50.8X5A Adverse effect of diagnostic agents, initial encounter; E61.1 Iron deficiency; K59.00 Constipation, unspecified; R13.10 Dysphagia, unspecified; R31.9 Hematuria, unspecified; R82.81 Pyuria; I89.0 Lymphedema, not elsewhere classified; Y71.1 Therapeutic (nonsurgical) and rehabilitative cardiovascular devices associated with adverse incidents; Y71.3 Surgical instruments, materials and cardiovascular devices (including sutures) associated with adverse incidents; Z96.651 Presence of right artificial knee joint; Z28.310 Unvaccinated for COVID-19; Z88.0 Allergy status to penicillin; Z85.42 Personal history of malignant neoplasm of other parts of uterus; Z79.899 Other long term (current) drug therapy; Z79.02 Long term (current) use of antithrombotics/antiplatelets; Z87.01 Personal history of pneumonia (recurrent); I25.2 Old myocardial infarction; Z82.49 Family history of ischemic heart disease and other diseases of the circulatory system; Z82.3 Family history of stroke; E11.22 Type 2 diabetes mellitus with diabetic chronic kidney disease
CPT/HCPCS: 33990; 36415; 37224; 61645; 71045; 71046; 76770; 80048; 80053; 80061; 80076; 81001; 82533; 82728; 82810; 83036; 83540; 83550; 83605; 83615; 83735; 83880; 84132; 84443; 84484; 85018; 85025; 85027; 85384; 85610; 85730; 86140; 86850; 86900; 86901; 86920; 92978; 92979; 93005; 93306; 93308; 93451; 93458; 94760; 96374; 96375; 96376; 99291